=== PATIENT | female | born 1955 | race Caucasian/White ===

== ENCOUNTER 2018-01-24 00:10 | Outpatient (CLI) | payer MEDICARE, SELFPAY ==
--- NOTE | 2018-01-24 08:45 | MERGEMPI_ITS ---
*[facility]* *[facility]* [address] [place] [address] Myocardial Perfusion Imaging - SPECT Maco protocol Date of study: 01/24/2018 *PATIENT PRESENTATION* Height: 160cm (63in) Blood Pressure: Weight: 80.9kg (178lb) BSA: 1.93m^2 Referring physician: Jose R Healy Ordering physician: Keshia Rossi Impressions: Study suggests myocardial infarction, with minimal overall ischemiain the territory of the right coronary and left anterior descending arteries. Summary: 1. Myocardial perfusion imaging: There is a large sized, severely intense, fixed defect involving the mid anterior and apical anterior, apical inferior and mid inferior, basal inferolateral and mid inferolateral, and apical wall(s). This suggests large myocardial infarction in the distribution of right coronary and left anterior descending artery. Overall ischemia: minimal. 2. The calculated left ventricular ejection fraction after stress: 38%. LV global systolic function is moderately reduced. Diffuse left ventricular regional motion abnormalities. There is akinesis involving the apical wall(s) of the left ventricle. 3. Stress ECG conclusions: The stress ECG is negative. 4. Stress: The target heart rate was achieved. The heart rate response to stress is normal. There is a normal resting blood pressure with an appropriate response to stress. The patient experienced no chest pain during stress. Exercise capacity is reduced (7.4 METS). Recommendations: 1. Cardiology consult to discuss cardiac catheterization. 2. Medical management is recommended. Indication: RO7.9. History: REASON FOR VISIT: PT WAS ADMITTED TO THE HOSPITAL ON 01/03/18 FOR CHEST PAIN. RULED OUT FOR ACUTE CORONARY SYNDROME AND WAS DISCHARGED ON 01/04/18. PT HAS A HISTORY OF CARDIAC STENTING IN 1998. PT HAS A HISTORY OF ST ELEVATION NM IN 2015 WITH CORONARY ANGIOGRAPHY SHOWING MUTIVESSEL DISEASE. SHE HAD A TWO-VESSEL BYPASS IN NOVEMBER OF 2015, MTZ TO LAD AND SAPHENOUS VEIN GRAFT TO THE RCA. TODAY'S STRESS TEST ORDERED TO FURTHER EVALUATE FOR PROGRESSION OF HER CORONARY ARTERY DISEASE. Risk factors: Family history of coronary artery disease. Current tobacco use. Hypertension. Diabetes mellitus. Obesity. Dyslipidemia. ALLERGIES: IBUPROFEN. MEDICATIONS: VITAMIN B COMPLEX 1 CAP DAILY. ROSUVASTATIN 40 MG Q HS. NITROGLYCERIN 0.4 MG SL PRN. MVI 1 TAB DAILY. MAGNESIUM 1 TAB DAILY. LISINOPRIL 10 MG DAILY. LAMOTRIGINE 125 MG TWICE A DAY. ISOSORBIDE 30 MG DAILY. INSULIN/GLARGINE 48 UNITS SQ DAILY. ESMEPRAZOLE MAGNESIUM 1 CAP BID. EMPAGLIFLOZIN 10 MG DAILY. CITALOPRAM 20 MG DAILY. ASPIRIN 81 MG DAILY. METOPROLOL 50 MG DAILY. ACETAMINOPHEN WITH CODEINE Q 6 HOURS PRN. FLEXERIL 10 MG PRN. ALPRAZOLAM 0.5 MG PRN. Imaging Technique: Protocol: Maco protocol. Acquisition: Gated SPECT; 1 day - rest/stress. The patient was imaged in the supine position. Attenuation correction used. Isotope administration: - Rest. Tc[99m]-sestamibi. Dose: 10.3mCi. Injection time: 08:50 AM. Injection to stress time: 00:45. - Stress. Tc[99m]-sestamibi. Dose: 30.8mCi. Injection time: 11:45 AM. 1-2 min before end of exercise Baseline ECG: SINUS RHYTHM. INCOMPLETE BBB PATTERN. HR 65 BPM. Normal sinus rhythm withincomplete left bundle branch block. There was an oldinferior myocardial infarction. Stress protocol: + +---+ + + !Stage !HR !BP (mmHg) !Comments ! + +---+ + + !1 min !---! !Inject ! ! ! ! !Regadenoson. ! + +---+ + + !Baseline supine !65 !158/72 (101) ! ! + +---+ + + !Baseline standing !82 !144/66 (92) ! ! + +---+ + + !Stage I; 1.7mph, 10degrees; 3 !128!172/38 (83) ! ! !min ! ! ! ! + +---+ + + !Stage II; 2.5mph, 12degrees; 3 !150!168/64 (99) ! ! !min ! ! ! ! + +---+ + + !Peak stress !156! ! ! + +---+ + + !Recovery; 1 min !---!176 (systolic)! ! + +---+ + + !Recovery; 3 min !92 !138/60 (86) ! ! + +---+ + + !Recovery; 6 min !88 !138/60 (86) ! ! + +---+ + + * Stress results: Maximal heart rate during stress was 156bpm (98% of maximal predicted heart rate). The maximal predicted heart rate was 160bpm. The target heart rate was achieved. The heart rate response to stress is normal. There is a normal resting blood pressure with an appropriate response to stress. The rate-pressure product for the peak heart rate and blood pressure was 87454la Hg/min. The patient experienced no chest pain during stress. Exercise capacity is reduced (7.4 METS). Stress ECG: TREADMILL PORTION OF STRESS TEST ENDED IN 6 MINUTES & 13 SECONDS NORMAL HEART RATE RESPONSE TO EXERCISE. MAX HR = 156 % OF TARGET = 97 4 mmHg DROP IN BLOOD PRESSURE IN STAGE 2 OF EXERCISE. OCCASIONAL PVCs. APPROXIMATE METS ACHIEVED = 7.38 3 OUT OF 10 NON RADIATING CHEST PRESSURE ASSOCIATED WITH NAUSEA REPORTED AT 2 MINUTES RECOVERY PERIOD. CHEST PRESSURE SUBSIDED AFTER [address] SEGMENT CHANGES AVERAGE FUNCTIONAL CAPACITY FOR EXERCISE. The stress ECG is negative. Woody treadmill score: 6. This score predicts a low risk of cardiac events. Myocardial perfusion: Imaging information: gated. The image quality was fair. The left ventricle is moderately dilated. There is a large sized, severely intense, fixed defect involving the mid anterior and apical anterior, apical inferior and mid inferior, basal inferolateral and mid inferolateral, and apical wall(s). This suggests large myocardial infarction in the distribution of right coronary and left anterior descending artery. Overall ischemia: minimal. Ventricular Function (Wall Motion): The calculated left ventricular ejection fraction after stress: 38%. LV global systolic function is moderately reduced. Diffuse left ventricular regional motion abnormalities. There is akinesis involving the apical wall(s) of the left ventricle. Study data: Jose R Healy MD supervised and was readily available during the procedure. This study was interpreted by [facility]. Study status: Routine. Consent: The risks, benefits, and alternatives to the procedure were explained to the patient and informed consent was obtained. Procedure: Initial setup. A baseline ECG was recorded. Surface ECG leads and manual cuff blood pressure measurements were monitored. Heart sounds: Normal. Lung sounds: Normal. Treadmill exercise testing was performed using the Maco protocol. Study completion: All catheters inserted during the procedure were removed. The patient tolerated the procedure well and was discharged from the lab. Discharge: The patient left the laboratory in stable condition. Birthdate: Patient birthdate: 1955. Sex: Gender: female. Study date: Study date: 01/24/2018. Study time: 12:30 PM. Signature Documentation: - The imaging portion of this study was interpreted by Nuclear Product Development Director Jose R Healy MD. - The Stress ECG portion of this study was interpreted by Jose R Healy MD. Electronically signed by Jose R Healy 01/24/2018 16:11
== END 2018-01-24 00:30 ==
PROVIDERS: PCP Internal Medicine; Visit Provider Nurse Practitioner
DX: R07.9 Chest pain, unspecified (principal); R94.30 Abnormal result of cardiovascular function study, unspecified; I25.2 Old myocardial infarction; I25.10 Atherosclerotic heart disease of native coronary artery without angina pectoris; E78.5 Hyperlipidemia, unspecified; E66.9 Obesity, unspecified; I10 Essential (primary) hypertension; Z79.4 Long term (current) use of insulin; Z82.49 Family history of ischemic heart disease and other diseases of the circulatory system; Z95.1 Presence of aortocoronary bypass graft
CPT/HCPCS: 78452; 93016; 93018; 93017

== ENCOUNTER → 2018-02-10 12:53 | Outpatient (BNVA) | payer MEDICARE, SELFPAY | PROVIDERS: Visit Provider Internal Medicine Cardiovascular Disease | DX: I25.810 Atherosclerosis of coronary artery bypass graft(s) without angina pectoris (principal); I25.5 Ischemic cardiomyopathy; I08.0 Rheumatic disorders of both mitral and aortic valves; I27.20 Pulmonary hypertension, unspecified; Z95.1 Presence of aortocoronary bypass graft; E78.5 Hyperlipidemia, unspecified; E11.8 Type 2 diabetes mellitus with unspecified complications; I10 Essential (primary) hypertension | CPT/HCPCS: 99214 ==

== ENCOUNTER 2018-05-26 00:14 | Outpatient (CLI) | payer MEDICARE, SELFPAY ==
--- NOTE | 2018-05-26 09:12 | DI.MAMMO_ITS ---
SYMPTOMS/DIAGNOSIS: SCREENING, Z12.31 BILATERAL SCREENING MAMMOGRAM: Comparison is made with exams from 2009 through 2016. The breasts are composed of scattered fibroglandular densities, breast density category B. No suspicious masses or suspicious microcalcifications are seen. There has been no significant change. IMPRESSION: Category 1B, negative mammogram. Yearly screening mammography is recommended. SA ASSESSMENT OF FINDINGS: Negative. Category 1. Patient will receive a letter notifying them of these results. BI-RADS category B. There are scattered areas of fibroglandular density.
== END 2018-05-26 00:34 ==
PROVIDERS: PCP Internal Medicine; Visit Provider Internal Medicine
DX: Z12.31 Encounter for screening mammogram for malignant neoplasm of breast (principal)
CPT/HCPCS: 77063; 77067

== ENCOUNTER 2018-06-16 10:23 | Outpatient (CLI) | payer MEDICARE, SELFPAY ==
--- NOTE | 2018-06-16 10:19 | DI.RAD_ITS ---
SYMPTOM/DIAGNOSIS: PAIN LEFT SHOULDER: There is mild spurring at the AC joint. More prominent spurring is seen at the inferior glenoid. There are calcifications adjacent to the greater tuberosity consistent with calcific tendinosis. The humeral head appears normally positioned. IMPRESSION: Degenerative changes and calcific tendinosis.
== END 2018-06-16 10:43 ==
PROVIDERS: PCP Internal Medicine; Referring Provider Internal Medicine; Visit Provider Orthopaedic Surgery
DX: G89.29 Other chronic pain (principal); M25.512 Pain in left shoulder; M19.012 Primary osteoarthritis, left shoulder; M75.32 Calcific tendinitis of left shoulder; E11.9 Type 2 diabetes mellitus without complications; I10 Essential (primary) hypertension; Z79.4 Long term (current) use of insulin
CPT/HCPCS: 20610; 99214; 99242; 73030; J1040

== ENCOUNTER → 2018-07-28 09:03 | Outpatient (BNVA) | payer MEDICARE, SELFPAY | PROVIDERS: PCP Internal Medicine; Referring Provider Internal Medicine; Visit Provider Orthopaedic Surgery | DX: M75.82 Other shoulder lesions, left shoulder; E11.9 Type 2 diabetes mellitus without complications; I10 Essential (primary) hypertension; Z79.4 Long term (current) use of insulin | CPT/HCPCS: 99211; 99213 ==

== ENCOUNTER 2018-08-17 17:29 | Outpatient (REF) | payer MEDICARE, SELFPAY ==
[2018-08-17 21:51] LABS: Bilirubin Negative (Negative); Blood Negative (Negative); Clarity Sl Cloudy; Glucose >=1000 mg/dL (Negative); Ketones Negative (Negative); Leukocyte Esterase Trace (Negative); Nitrite Negative (Negative); Specific Gravity <= 1.005 (1.005-1.025); Urobilinogen 0.2 EU/dL (Up TO 0.2); pH 5.5 (5-8)
[2018-08-17 22:06] LABS: Bacteria Many HPF (Negative); Casts Negative LPF (Negative); Crystals Negative HPF (Negative); Epithelial Cells Rare HPF (Negative); Mucus Negative (Negative); Other Cells Rare Renal (Negative); RBC Negative (0-2); WBC 20-50 HPF (0-5)
[2018-08-17 22:07] LABS: C & S Indicated? C&S Done As Ordered
== END 2018-08-17 17:49 ==
LOC: NCHCN 17:29
PROVIDERS: PCP Internal Medicine; Visit Provider Nurse Practitioner Family
DX: R10.2 Pelvic and perineal pain (principal); N89.8 Other specified noninflammatory disorders of vagina
CPT/HCPCS: 87077; 81003; 81015; 87086; 87186; 87480; 87510; 87660

== ENCOUNTER → 2018-08-18 13:19 | Outpatient (BNVA) | payer MEDICARE, SELFPAY | PROVIDERS: PCP Internal Medicine; Visit Provider Internal Medicine Cardiovascular Disease | DX: I25.10 Atherosclerotic heart disease of native coronary artery without angina pectoris (principal); I25.5 Ischemic cardiomyopathy; I34.0 Nonrheumatic mitral (valve) insufficiency; I35.1 Nonrheumatic aortic (valve) insufficiency; I27.20 Pulmonary hypertension, unspecified; I10 Essential (primary) hypertension; E11.9 Type 2 diabetes mellitus without complications | CPT/HCPCS: 99214 ==

== ENCOUNTER 2018-09-01 16:31 | Outpatient (REF) | payer MEDICARE, SELFPAY | END 2018-09-01 16:51 | LOC: NCHCN 16:31 | PROVIDERS: PCP Internal Medicine; Visit Provider Internal Medicine | DX: N76.2 Acute vulvitis (principal) | CPT/HCPCS: 87480; 87510; 87660 ==

== ENCOUNTER 2018-09-22 01:44 | Outpatient (CLI) | payer MEDICARE, SELFPAY ==
--- NOTE | 2018-09-22 14:00 | DIABASSESS_ITS ---
DESCRIPTION/ASSESSMENT: Yas Campos presents for Medical Nutrition Therapy for diabetes. She reports h/o heart disease. FOOD: Yas has difficulty chewing because of dental issues and mostly eats soft foods. She does not have a plan for helping with this. In addition, she has acid reflux and is forced to eat very slowly. BMI 32 She has her homemade date/flaxmeal bread, 1/2 banana for breakfast or yogurt and flax. 1:00 before work: 3 oz roast beef, 5 crackers and or 4 chunks of cheese. Supper at work she has a few bites of meat or whatever is being served. Before bed she has patrick crackers with fudge frosting to prevent hypoglycemia in the night. States she craves sweets. She does use a [employer] cane weigher helper at times to mix up a whole meal. MEDICATION: 48u Lantus and Jardiance which has been discontinued due to UTI, however she reports continuing to take it for the cardioprotective aspect. She was intolerant of Victoza. MONITOR: A1c 7.9 3 months ago. Monitors blood sugars fasting 54-174, most less than 130mg/dl. PHYSICAL ACTIVITY: Yas does not have a regular activity regimen. She works 4 days a week with some days being very active. INTERVENTION: Reviewed diabetes food guide focused on carbohydrate sources and distribution. Encouraged vegetable choices and ways to make them palatable. Discussed challenges of feeding her insulin to prevent hypoglycemia. Discussed physiological need for insulin for carbohydrate as well as basal needs. She understands currently her basal insulin is also covering her mealtime needs which may be increasing her risk of nocturnal hypoglycemia. Reviewed mealtime insulin option. Encouraged monitoring of blood sugars to see how food choices are affecting blood sugars. Encouraged physical activity and discussed options. PLAN: Yas will document food and blood sugars over the weekend increase protein at breakfast; decrease crackers; move banana to snack to spread out carbohydrate servings We will follow up Wednesday for visit. In 1400 Out 1450 3 MNT
== END 2018-09-22 02:04 ==
PROVIDERS: PCP Internal Medicine; Visit Provider Dietitian, Registered
DX: E11.9 Type 2 diabetes mellitus without complications (principal); Z79.4 Long term (current) use of insulin; Z71.3 Dietary counseling and surveillance
CPT/HCPCS: 97802

== ENCOUNTER 2018-09-28 10:44 | Outpatient (REF) | payer MEDICARE, SELFPAY | END 2018-09-28 11:04 | LOC: NCHCN 10:44 | PROVIDERS: PCP Internal Medicine; Visit Provider Specialist/Technologist Athletic Trainer | DX: N76.2 Acute vulvitis (principal) | CPT/HCPCS: 87480; 87510; 87660 ==

== ENCOUNTER 2018-09-29 12:07 | Outpatient (CLI) | payer MEDICARE, SELFPAY ==
--- NOTE | 2018-09-29 14:30 | DIABASSESS_ITS ---
ASSESSMENT: Yas Campos returns for follow up for Medical Nutrition Therapy with monitoring of blood sugars 122 fasting; 123 before lunch, 175 at 3PM when she had quiche; 147 at 5:30 pm. Another day blood sugar 86, 106, 155 and 125. MEDICATION: She is intolerant to trulicity with stomach problems. She has just stopped Jardiance secondary to UTI. She is physically active with mowing the lawn and general outdoor activities. She states she is also down to 4 cigarettes trying to quit. ASSESSMENT/INTERVENTION: Yas documented her food and finds blood sugars improved. She feels she can continue with this food outline. Discussed options to take to work. Discussed Ozempic. She will talk with the pharmacist about whether this would be better tolerated given it is a once a week medication. I did explain it is a very similar medication to Trulicity, however she continues to be interested. ACTION: Continue current food plan with added variety Discuss with PCP medication options given she is unable to take Jardiance We will follow up in 1 month and by telephone between.
== END 2018-09-29 12:27 ==
PROVIDERS: PCP Internal Medicine; Visit Provider Dietitian, Registered
DX: E11.9 Type 2 diabetes mellitus without complications (principal); Z79.4 Long term (current) use of insulin; Z71.3 Dietary counseling and surveillance

== ENCOUNTER 2018-11-05 08:07 | Emergency (ER) | payer MEDICARE, SELFPAY ==
[2018-11-05] VITALS (38 sets, daily range): BP systolic 95–151; BP diastolic 56–75; PULSE 0–135; RESP 9–53; TEMP 36.2; O2SAT 88–98
--- NOTE | 2018-11-05 08:18 | DI.RAD_ITS ---
SYMPTOM/DIAGNOSIS: SHORTNESS OF BREATH PORTABLE CHEST4: Comparison is made with 03 Jan 2018. Sternal wires, mediastinal clips and coronary artery stents are seen. The heart is enlarged, unchanged. There are mildly increased interstitial markings and mild vascular prominence which could indicate mild CHF. There is no focal infiltrate or effusion. IMPRESSION: Cardiomegaly and mild CHF.
[2018-11-05] MEDS: Aspirin 81 MG CHEW 324 MG CH (08:21)
--- NOTE | 2018-11-05 08:22 | ED.GENADUL_ITS ---
Discharge Plan Disposition Patient Disposition: HOME Condition: Stable Discharge Details Chief Complaint: Chest Pain Clinical Impression: Shortness of breath, CHF (congestive heart failure) Primary Care Provider: Con Gardner ED Provider: Theo Mock [place] Meds and New Rx's Prescriptions: New furosemide [Lasix] 20 mg tablet 20 mg PO DAILY Qty: 14 RF: 0 Continued aspirin [Adult Low Dose Aspirin] 81 MG tablet,delayed release (DR/EC) 81 mg PO DAILY Qty: 30 RF: 6 lisinopril 10 MG tablet 10 mg PO DAILY Qty: 90 RF: 4 Metoprolol Succinate 50 MG TAB.ER.24H 50 mg PO DAILY 60 Days Qty: 60 RF: 4 Lantus U-100 Insulin 100 UNITS/ML solution 48 units Sub-Q DAILY RF: 0 lamotrigine [Lamictal] 25 MG tablet 1 tab PO BID RF: 0 lamotrigine [Lamictal] 100 MG tablet 1 tab PO BID RF: 0 acetaminophen-codeine [Tylenol-Codeine #3] 1 EACH tablet 1 tab PO Q6H PRN (Reason: Pain) RF: 0 nitroglycerin [Nitrostat] 0.4 MG tablet, sublingual 0.4 mg Sublingual Q5 MIN PRN X3 PRN (Reason: Chest Pain) Qty: 15 RF: 0 esomeprazole magnesium [Nexium] 20 MG capsule,delayed release(DR/EC) 1 cap PO BID RF: 0 Jardiance 10 MG tablet 10 mg PO DAILY RF: 0 rosuvastatin [Crestor] 40 MG tablet 40 mg PO QPM RF: 0 multivitamin [Daily Multi-Vitamin] 1 EACH tablet RF: 0 vitamin B complex [B-Complex] 1 EACH tablet See Rx Instructions .ROUTE .COMPLEX RF: 0 magnesium L-lactate [Magtab] 84 MG tablet extended release RF: 0 isosorbide mononitrate 30 MG tablet extended release 24 hr 30 mg PO DAILY Qty: 30 RF: 0 citalopram 20 mg tablet 25 mg PO DAILY RF: 0 cyclobenzaprine 10 mg Tablet 10 mg PO HS PRNRF: 0 nicotine [Nicoderm CQ] 14 mg/24 hr Patch 24 Hour 1 patch TRANSDERMAL Q24H RF: 0 Lantus U-100 Insulin 100 unit/mL Solution 52 unit subcut DAILY RF: 0 alprazolam 0.5 mg Tablet 0.5 mg PO BID PRNRF: 0 citalopram 20 mg Tablet 20 mg PO DAILY RF: 0 esomeprazole magnesium [Nexium] 20 mg Capsule,Delayed Release(Dr/Ec) 40 mg PO DAILY RF: 0 magnesium 200 mg Tablet 800 mg PO DAILY RF: 0 Narcan 4 mg/actuation [place],Non-Aerosol 1 spray INTRANASAL ONCE PRN (Reason: Sedation) RF: 0 Ozempic 0.25 mg or 0.5 mg(2 mg/1.5 mL) Pen Injector 0.25 mg subcut QWEEK RF: 0 Discharge Instructions Instructions: Pulmonary Edema (ED) Additional Instructions: You have evidence of mild pulmonary edema on your xray. you are being started on lasix, take your first dose tomorrow and discuss continuing this medication when you follow up with your primary care provider this week if you feel more ill, more short of breath or have chest pain/pressure that is worsening or new return to the emergency department Medical Decision Making 63 yo female with hx of coronary artery disease with prior coronary artery bypass grafting in 2016, prior PCI in 1999, ischemic cardiomyopathy, type 2 diabetes mellitus, hypertension, hld and mitral regurgitation who comes in with chief complaint of shortness of breath for a week that is worse when laying flat. She also states she has had some mild chest pressure that doesn't radiate, no n/v, no diaphoresis. She denies cough or fevers, no recent immobilization. She was able to walk to the room with no evidence of significant respiratory distress and on exam has crackles at the bases and on bedside u/s does have b lines in both lungs, no pericardial effusion and EF doesn't appear significantly reduced. No wheezing so doubt copd/asthma. No fever/cough so doubt pna and no significant tachycardia/hypoxia or evidence of dvt so doubt PE. I suspect her symptoms are due to pulmonary edema from her known heart disease. Will evaluate for cardiac ischemia and anemia as well as electrolyte disorders and monitor Pt remains stable, labs show probnp of 1000, up from 765 in 2016 otherwise unremarkable labs. She is ambulating with stable vital signs. I had a long discussion with the patient about admission vs repeating troponin and d/c if normal and the risks/benefits of both and she has chosen that she would like to repeat the troponin and if normal d/c rather than admission which I feel is reasonable given reassuring labs and vital signs. She has capacity to make her own decisions and so will repeat troponin and continue to monitor at this time 2nd troponin negative as well. She feels much better and remains hd stable. Will d/c and have her f/u with her pcp this week and return precautions given Differential Diagnosis chf, pna, acs Medical Records Medical records reviewed: Yes I reviewed the patient's medical records. Imaging Data Radiologic Study: Attestation: I personally reviewed and interpreted this imaging study as follows: Imaging: X-Ray Radiologist's impression: IMPRESSION: Findings suspicious for mild CHF. Lab Data Lab results reviewed: Yes I reviewed the patient's lab results. ECG Data Attestation: I personally reviewed and interpreted this ECG (s) as follows: Prior ECG tracings: available for review Interpretation: sinus rhythm, rate of 80, pr [address] t wave ischemic changes compared to old ekg 2nd ekg shows sinus rythm, rate of 70, no st t wave changes from first ekg HPI General Mode of arrival: ambulatory . Date/Time Provider Initiated Documentation: 11/05/18 08:08 . Limitations to Documentation: no limitations . Information obtained by: patient . History of Present Illness 63 year old F presents to the emergency department with the chief complaint of shortness of breath, described as moderate, Patient reports no radiation. Patient start ed experiencing this week(s) (1) and it has been constant. No relieving factors improve symptom(s), Other factors that worsen symptoms (laying flat) . Patient notes weakness. Patient did receive the following treatments prior to arrival, none Related Data Home Medications Medication Instructions Recorded Confirmed Lantus U-100 Insulin 48 units SUB-Q DAILY 04/08/14 11/05/18 lamotrigine [Lamictal] 1 tab PO BID 04/08/14 11/05/18 lamotrigine [Lamictal] 1 tab PO BID 04/08/14 11/05/18 acetaminophen-codeine 1 tab PO Q6H PRN 12/09/14 11/05/18 [Tylenol-Codeine #3] nitroglycerin [Nitrostat] 0.4 mg SUBLINGUAL Q5 MIN PRN X3 07/01/15 11/05/18 PRN #15 tab esomeprazole magnesium [Nexium] 1 cap PO BID 12/06/15 07/28/18 aspirin [Adult Low Dose Aspirin] 81 mg PO DAILY #30 tab-cap 05/29/16 11/05/18 lisinopril 10 mg PO DAILY #90 tab-cap 07/24/16 11/05/18 Jardiance 10 mg PO DAILY 01/03/18 07/28/18 rosuvastatin [Crestor] 40 mg PO QPM 01/03/18 11/05/18 isosorbide mononitrate 30 mg PO DAILY #30 tabcr 01/04/18 11/05/18 magnesium L-lactate [Magtab] 01/04/18 07/28/18 multivitamin [Daily Multi-Vitamin] 01/04/18 07/28/18 vitamin B complex [B-Complex] See Rx Instructions .ROUTE .COMPLEX 01/04/18 11/05/18 citalopram 20 mg tablet 25 mg PO DAILY tab 08/18/18 11/05/18 Lantus U-100 Insulin 52 unit SUBCUT DAILY 11/05/18 11/05/18 Narcan 1 spray INTRANASAL ONCE PRN 11/05/18 11/05/18 Ozempic 0.25 mg SUBCUT QWEEK 11/05/18 11/05/18 alprazolam 0.5 mg PO BID PRN 11/05/18 11/05/18 citalopram 20 mg PO DAILY 11/05/18 11/05/18 cyclobenzaprine 10 mg PO HS PRN 11/05/18 11/05/18 esomeprazole magnesium [Nexium] 40 mg PO DAILY 11/05/18 11/05/18 furosemide [Lasix] 20 mg PO DAILY #14 tab 11/05/18 magnesium 800 mg PO DAILY 11/05/18 11/05/18 nicotine [Nicoderm CQ] 1 patch TRANSDERMAL Q24H 11/05/18 11/05/18 Previous Rx's Medication Instructions Recorded nitroglycerin [Nitrostat] 0.4 mg SUBLINGUAL Q5 MIN PRN X3 07/01/15 PRN #15 tab isosorbide mononitrate 30 mg PO DAILY #30 tabcr 01/04/18 furosemide [Lasix] 20 mg PO DAILY #14 tab 11/05/18 Allergies Allergy/AdvReac Type Severity Reaction Status Date / Time ibuprofen AdvReac Intermediate upset Unverified 11/05/18 08:22 stomach Review of Systems Review of Systems All systems reviewed & are unremarkable except as noted in HPI and below Constitutional Denies chills, Denies fever(s) and Denies weakness Respiratory Denies cough Gastrointestinal Denies abdominal pain and Denies vomiting Integumentary/Breasts Denies rash Neurologic Denies weakness Psychiatric Denies depression PFSH Medical History Diabetes Fibromyalgia GERD (gastroesophageal reflux disease) Hypertension Sleep apnea Social History Smoking/Tobacco Use Status: Current every day Drug use: Never Substance use type: does not use Do you feel safe at home: Yes Do you feel safe in your relationship?: Yes History History 2 Para 4 Hx # Term Pregnancies Multiple births Hx # Pregnancies Ectopic pregnancies AB induced Hx Number of Living Children AB spontaneous Exam Const General: no acute distress Orientation: alert HENMT Head: normal to inspection Ears: external ears normal General nose exam: external nose normal Mouth: moist mucous membranes Eyes General: appearance normal, both eyes and all related structures Neck Neck: normal visual inspection Resp Effort & Inspection: normal respiratory effort and able to speak in complete sentences Cardio Rate: regular rate Skin General skin exam: no rashes or lesions noted Neuro General: alert and oriented x3 Extrem General: normal to inspection Psych Mental Status: mental status grossly normal
[2018-11-05] MEDS: Furosemide 40 MG/4 ML VIAL IVP (08:26)
[2018-11-05 08:30] LABS: Abs Immature Grans 0.03 k/cumm (0.0-0.09); Absolute Basophil Count 0.03 k/cumm (0.0-0.2); Absolute Eosinophil Count 0.18 k/cumm (0.0-0.7); Absolute Lymphocyte Count 1.89 k/cumm (1.2-3.4); Absolute Monocyte Count 1.04 k/cumm (0.11-0.7); Absolute Neutrophil Count 5.98 k/cumm (1.2-6.7); Basophils % 0.3; HCT 37.5 % (36.0-46.0); HGB 12.3 g/dL (12.0-15.5); Immature Grans % 0.3; Lymphocytes % 20.7; Mean Corp. HGB Concentration 32.8 g/dL (32.0-36.0); Mean Corpuscular Hemoglobin 31.1 pg (27.0-33.0); Mean Corpuscular Volume 94.7 fL (80-95); Mean Platelet Volume 9.8 fL (8.0-11.0); Monocytes % 11.4; Neutrophils % 65.3; Platelet Count 234 x1000/uL (130-400); RBC 3.96 m/cumm (4.00-5.20); RBC Distribution Width 13.3 % (11.7-14.6); White Blood Cell Count 9.15 k/cumm (4.4-10.8)
[2018-11-05 08:45] LABS: PTT Activated 24.5 sec (21.0-31.4); Prothrombin Time 11.5 sec (9.3-11.0)
[2018-11-05 08:47] LABS: INR 1.1 (0.9-1.1)
[2018-11-05 08:53] LABS: ALT 24 U/L (12-78); AST 16 U/L (15-37); Albumin 3.5 g/dL (3.4-5.0); Alkaline Phosphatase 84 U/L (46-116); BUN 16 mg/dL (7-18); Bilirubin, Total 0.7 mg/dL (0.2-1.0); CREATININE 0.74 mg/dL (0.55-1.02); Calcium 9.3 mg/dL (8.5-10.1); Chloride 104 mmol/L (98-107); Glucose 285 mg/dL (70-100); Magnesium 1.9 mg/dL (1.8-2.4); NT-proBNP 1057 pg/mL; Potassium 5.1 mmol/L (3.5-5.1); Sodium 141 mmol/L (136-145); Total Protein 7.5 g/dL (6.4-8.2)
[2018-11-05 08:54] LABS: Troponin I < 0.05 ng/mL (0.00-0.06)
--- NOTE | 2018-11-05 10:02 | DI.VRAD_ITS ---
EXAM: XR Chest, 1 View EXAM DATE/TIME: 11/05/2018 8:19 AM CLINICAL HISTORY: 63 years old, female; Shortness of breath; Prior surgery; Surgery date: 1-6 months TECHNIQUE: Imaging protocol: XR of the chest, 1 view. COMPARISON: CR PORTABLE CHEST ONE VIEW 01/03/2018 2:19 PM FINDINGS: Lungs: Minimal septal line thickening in the right midlung zone. Mild prominence of pulmonary vasculature. No pulmonary consolidation. Pleural space: No pleural effusion or pneumothorax. Heart/Mediastinum: Status post CABG. Cardiomegaly, unchanged. Bones/joints: Unremarkable. IMPRESSION: Findings suspicious for mild CHF. Dictated and Authenticated by: Antoine Yuen MD. Ordering:BRITTNY Venegas MD
[2018-11-05 11:28] LABS: Troponin I < 0.05 ng/mL (0.00-0.06)
--- NOTE | 2018-11-05 11:40 | NUR.NOTE ---
Nursing Note: Pt resting in stretcher, states that her SOB has greatly improved, pt states, I can take a deep breath again
--- NOTE | 2018-11-07 08:01 | NUR.NOTE ---
referral sent to pcp Dr. Gardner.Nursing Note:
== END 2018-11-05 12:09 | disposition home or self-care (01) ==
PROVIDERS: Emergency Provider Emergency Medicine; PCP Internal Medicine
DX: R06.02 Shortness of breath (principal); R07.9 Chest pain, unspecified; I50.9 Heart failure, unspecified; I25.10 Atherosclerotic heart disease of native coronary artery without angina pectoris; Z95.1 Presence of aortocoronary bypass graft
CPT/HCPCS: 36415; 80053; 93005; 96374; 99285; 71045; 83735; 83880; 84484; 85025; 85610; 85730; 93010; J1940; J3490

== ENCOUNTER 2018-11-21 09:33 | Emergency (ER) | payer MEDICARE, SELFPAY ==
[2018-11-21] VITALS (43 sets, daily range): BP systolic 102–144; BP diastolic 46–96; PULSE 58–82; RESP 8–21; TEMP 37; O2SAT 92–99
--- NOTE | 2018-11-21 09:39 | W.ED.GENAD ---
Discharge Plan Disposition Patient Disposition: HOME Condition: Improving Discharge Details Chief Complaint: Chest Pain Clinical Impression: Dyspnea, Chest pain, History of CHF (congestive heart failure), Noncompliance with medication regimen Primary Care Provider: Con Gardner ED Provider: Brigid Newberry Home Meds and New Rx's Prescriptions: New furosemide [Lasix] 40 mg tablet 40 mg PO DAILY Qty: 30 RF: 0 Continued aspirin [Adult Low Dose Aspirin] 81 MG tablet,delayed release (DR/EC) 81 mg PO DAILY Qty: 30 RF: 6 lisinopril 10 MG tablet 10 mg PO DAILY Qty: 90 RF: 4 Lantus U-100 Insulin 100 UNITS/ML solution 48 units Sub-Q DAILY RF: 0 lamotrigine [Lamictal] 100 MG tablet 1 tab PO BID RF: 0 acetaminophen-codeine [Tylenol-Codeine #3] 1 EACH tablet 1 tab PO Q6H PRN (Reason: Pain) RF: 0 nitroglycerin [Nitrostat] 0.4 MG tablet, sublingual 0.4 mg Sublingual Q5 MIN PRN X3 PRN (Reason: Chest Pain) Qty: 15 RF: 0 rosuvastatin [Crestor] 40 MG tablet 40 mg PO QPM RF: 0 multivitamin [Daily Multi-Vitamin] 1 EACH tablet 1 tab DAILY RF: 0 vitamin B complex [B-Complex] 1 EACH tablet See Rx Instructions .ROUTE .COMPLEX RF: 0 isosorbide mononitrate 30 MG tablet extended release 24 hr 30 mg PO DAILY Qty: 30 RF: 0 cyclobenzaprine 10 mg Tablet 10 mg PO HS PRNRF: 0 Lantus U-100 Insulin 100 unit/mL Solution 52 unit subcut DAILY RF: 0 alprazolam 0.5 mg Tablet 0.5 mg PO PRN PRNRF: 0 citalopram 20 mg Tablet 20 mg PO DAILY RF: 0 esomeprazole magnesium [Nexium] 20 mg Capsule,Delayed Release(Dr/Ec) 40 mg PO DAILY RF: 0 magnesium 200 mg Tablet 800 mg PO DAILY RF: 0 Narcan 4 mg/actuation Topping,Non-Aerosol 1 spray INTRANASAL ONCE PRN (Reason: Sedation) RF: 0 furosemide [Lasix] 20 mg tablet 20 mg PO DAILY Qty: 14 RF: 0 metoprolol succinate 50 mg Tablet Extended Release 24 Hr 50 mg DAILY RF: 0 nystatin 100,000 unit/gram Cream 100,000 unit BID RF: 0 Narcan 4 mg/actuation Topping,Non-Aerosol 4 mg PRN PRNRF: 0 Discharge Instructions Instructions: Chest Pain (ED), Dyspnea (ED) Additional Instructions: Call your primary care doctor's office today to discuss plans for obtaining an outpatient PET scan and/or biopsy of the lung mass noted on CAT scan today. Follow-up with her scheduled appointment with her primary care doctor on for reevaluation and for referral of outpatient stress test. Return immediately to the emergency department if you develop any worsening or new concerning symptoms. Discharge Data Discharge Date/Time-TO BE ENTERED AT DEPARTURE: 11/21/18 14:32 Discharge Physician: Brigid Newberry Medical Decision Making 63-year-old female with a history of diabetes, GERD, hypertension, hyperlipidemia, fibromyalgia, coronary artery disease, ischemic cardiomyopathy, CABG in 2016 and 2 cardiac stents who presents with shortness of breath for months, worse over the past 6 days since she ran out of her Lasix, and left-sided aching chest pain that started while in bed this morning. EKG noted a rate of 65, sinus with T wave inversion in 1 and aVL which is been seen in previous. No acute ST elevation or depression. She has significant tenderness to palpation in her left upper quadrant and left lower ribs. She states she was unaware that she had abdominal pain. She states she feels like she gained 3 pounds over the last few days. Differential diagnosis includes acute CHF, ACS, pneumonia, fluid overload, arrhythmia. Denies tearing chest pain so doubt dissection. History presentation not consistent with PE. Based on patient's age and history, cardiac work-up including screening labs, CT chest abdomen and pelvis, will give GI cocktail, Compazine, Pepcid and Lasix and reassess. 1145 --patient states she feels much better. Denies any chest pain or shortness of breath at this time. Labs and imaging reviewed. Troponin negative. BMP 809 which is improved from previous at 1000. Lipase within normal limits. CT chest noted increase in size of a peripheral nodule near the lingula which is masslike and recommend biopsy or PET scan for further evaluation per radiology. Do not suspect pneumonia as patient has no fever, cough, normal white blood cell count and normal vitals. No PE, aneurysm or acute abdominal pathology. Unable to assess fully for thoracic dissection but no abd dissection. 1410 --patient feels much better and she is requesting to go home. She has eaten lunch and she denies any chest pain or shortness of breath. She is hemodynamically stable with normal heart rate and oxygen saturation. Repeat troponin negative. Second EKG no acute change. We will send home with prescription for Lasix. She is instructed to f/u with pcp in 2 days and to return here immediately if worse. She was informed of mass on chest CT and advised for repeat CT chest in 4-6 weeks. Medical Records Medical records reviewed: Yes I reviewed the patient's medical records. Imaging Data Radiologic Study: Radiologist's impression: CT ANGIOGRAPHY CHEST/ABDOMEN/PELVIS: 11/21/18 CT angiography was performed with multi slice acquisition and multi planar and 3D reconstruction. CT angiography of the chest, abdomen and pelvis was performed with pulmonary embolus protocol timing of thoracic scanning. There is no evidence of pulmonary embolic disease. Thoracic aorta is not well opacified. There is some prominence of the pulmonary interstitial markings and there are diffuse mild changes of COPD. There is an irregular pleural based nodule/mass measuring up to about 18 x 8 mm in diameter in the left lung base laterally which lies in the lingula. No other focal nodule or consolidation seen. No pleural effusion or pneumothorax. Tracheobronchial tree appears intact. No mediastinal or hilar adenopathy.. Abdominal aorta is well opacified and appears normal as do its major branches. Liver, spleen and pancreas are normal in appearance. Adrenals and kidneys are unremarkable. No abdominal or pelvic adenopathy. Small fat containing umbilical hernia noted. No other significant abdominal wall hernia seen. Uterus is atrophic or absent. The appendix appears normal. No evidence of diverticulitis or bowel obstruction. CONCLUSION: 1. No evidence of pulmonary embolic disease. Thoracic aorta not well opacified with contrast material. 2. 18 x 8 mm in diameter peripheral pleural based nodule/mass of the lingula. This was not present on previous chest CT of 06/30/2015 and may represent an area of consolidation vs neoplasm. There was presumed lingular scarring seen on previous chest CT of December 2017. Follow up chest CT suggested in 4-6 weeks if there is a clinical suspicion of pneumonia and if the findings do not resolve evaluation with tissue sampling or PET CT should be considered to rule out neoplastic disease. 3. No significant abnormality identified on scanning of the abdomen. Lab Data Lab results reviewed: Yes I reviewed the patient's lab results. Laboratory Tests Range/Units 11/21/18 11/21/18 11/21/18 09:55 09:55 10:08 WBC (4.4-10.8) k/cumm 7.84 RBC (4.00-5.20) m/cumm 3.72 L Hgb (12.0-15.5) g/dL 11.3 L Hct (36.0-46.0) % 34.7 L MCV (80-95) fL 93.3 MCH (27.0-33.0) pg 30.4 MCHC (32.0-36.0) g/dL 32.6 RDW (11.7-14.6) % 13.0 Plt Count (130-400) x1000/uL 242 MPV (8.0-11.0) fL 9.7 Immature Gran % 0.3 Neutrophils % 62.0 Lymphocytes % 24.6 Monocytes % 10.5 Eosinophils % 2.3 Basophils % 0.3 Absolute Neutrophils (1.2-6.7) k/cumm 4.87 Absolute Lymphocytes (1.2-3.4) k/cumm 1.93 Absolute Monocytes (0.11-0.7) k/cumm 0.82 H Absolute Eosinophils (0.0-0.7) k/cumm 0.18 Absolute Basophils (0.0-0.2) k/cumm 0.02 Sodium (136-145) mmol/L 139 Potassium (3.5-5.1) mmol/L 4.6 Chloride (98-107) mmol/L 105 Carbon Dioxide (21.0-32.0) mmol/L 25.0 Anion Gap (3-11) mmol/L 9.0 BUN (7-18) mg/dL 11 Creatinine (0.55-1.02) mg/dL 0.69 Estimated GFR/1.73 m2 (mL/min/1.73m2) >= 60.00 Glucose (70-100) mg/dL 251 H Calcium (8.5-10.1) mg/dL 8.8 Magnesium (1.8-2.4) mg/dL 1.8 Total Bilirubin (0.2-1.0) mg/dL 0.5 AST (15-37) U/L 17 ALT (12-78) U/L 18 Alkaline Phosphatase (46-116) U/L 84 Troponin I (0.00-0.06) ng/mL < 0.05 NT-Pro-B Natriuret Pep ( - 299) pg/mL 809 H Total Protein (6.4-8.2) g/dL 7.2 Albumin (3.4-5.0) g/dL 3.4 Lipase (73-393) U/L 72 L Range/Units 11/21/18 12:59 WBC (4.4-10.8) k/cumm RBC (4.00-5.20) m/cumm Hgb (12.0-15.5) g/dL Hct (36.0-46.0) % MCV (80-95) fL MCH (27.0-33.0) pg MCHC (32.0-36.0) g/dL RDW (11.7-14.6) % Plt Count (130-400) x1000/uL MPV (8.0-11.0) fL Immature Gran % Neutrophils % Lymphocytes % Monocytes % Eosinophils % Basophils % Absolute Neutrophils (1.2-6.7) k/cumm Absolute Lymphocytes (1.2-3.4) k/cumm Absolute Monocytes (0.11-0.7) k/cumm Absolute Eosinophils (0.0-0.7) k/cumm Absolute Basophils (0.0-0.2) k/cumm Sodium (136-145) mmol/L Potassium (3.5-5.1) mmol/L Chloride (98-107) mmol/L Carbon Dioxide (21.0-32.0) mmol/L Anion Gap (3-11) mmol/L BUN (7-18) mg/dL Creatinine (0.55-1.02) mg/dL Estimated GFR/1.73 m2 (mL/min/1.73m2) Glucose (70-100) mg/dL Calcium (8.5-10.1) mg/dL Magnesium (1.8-2.4) mg/dL Total Bilirubin (0.2-1.0) mg/dL AST (15-37) U/L ALT (12-78) U/L Alkaline Phosphatase (46-116) U/L Troponin I (0.00-0.06) ng/mL < 0.05 NT-Pro-B Natriuret Pep ( - 299) pg/mL Total Protein (6.4-8.2) g/dL Albumin (3.4-5.0) g/dL Lipase (73-393) U/L ECG Data Attestation: I personally reviewed and interpreted this ECG (s) as follows: Interpretation: #1 -- Rate of 65, sinus, T wave inversion in [address] No acute ST elevation or depression. QTc 426. QRS 108. #2 -- Rate of 63, sinus, T wave inversion in [address]VL[address] No acute ST elevation or depression. QTc 440. QRS 112. HPI General Mode of arrival: ambulatory. Date/Time Provider Initiated Documentation: 11/21/18 09:35. Limitations to Documentation: no limitations. Information obtained by: patient. HPI Narrative: Patient is a 63-year-old female with bipolar disorder, hypertension, GERD, diabetes, hypertension, fibromyalgia, CABG and coronary artery stents who presents with shortness of breath for months, worse over the past few days since she ran out of Lasix, and chest pain since this morning. Patient states she was laying in bed when she developed left-sided chest pain. She describes it as constant, aching currently 10/24. She states she also has left-sided rib pain under her left breast which is worse with bending over for the past few months. She denies any radiation of her chest pain. She admits to occasional left arm numbness and nausea this morning. She denies any dizziness. She states her shortness of breath is worse when laying flat. She states she was seen here recently and diagnosed with CHF and started on Lasix. She states she originally started on 20 mg and this was increased within 1 day to 40 mg. She states her last dose was 6 days ago after she ran out. She attempted to call her primary care doctor but they were on vacation. Related Data Home Medications Medication Instructions Recorded Confirmed Lantus U-100 Insulin 48 units SUB-Q DAILY 04/08/14 11/21/18 lamotrigine [Lamictal] 1 tab PO BID 04/08/14 11/21/18 acetaminophen-codeine 1 tab PO Q6H PRN 12/09/14 11/21/18 [Tylenol-Codeine #3] nitroglycerin [Nitrostat] 0.4 mg SUBLINGUAL Q5 MIN PRN X3 07/01/15 11/05/18 PRN #15 tab aspirin [Adult Low Dose Aspirin] 81 mg PO DAILY #30 tab-cap 05/29/16 11/21/18 lisinopril 10 mg PO DAILY #90 tab-cap 07/24/16 11/21/18 rosuvastatin [Crestor] 40 mg PO QPM 01/03/18 11/21/18 isosorbide mononitrate 30 mg PO DAILY #30 tabcr 01/04/18 11/21/18 multivitamin [Daily Multi-Vitamin] 1 tab DAILY 01/04/18 11/21/18 vitamin B complex [B-Complex] See Rx Instructions .ROUTE .COMPLEX 01/04/18 11/21/18 Lantus U-100 Insulin 52 unit SUBCUT DAILY 11/05/18 11/21/18 Narcan 1 spray INTRANASAL ONCE PRN 11/05/18 11/21/18 alprazolam 0.5 mg PO PRN PRN 11/05/18 11/21/18 citalopram 20 mg PO DAILY 11/05/18 11/21/18 cyclobenzaprine 10 mg PO HS PRN 11/05/18 11/21/18 esomeprazole magnesium [Nexium] 40 mg PO DAILY 11/05/18 11/21/18 furosemide [Lasix] 20 mg PO DAILY #14 tab 11/05/18 11/21/18 magnesium 800 mg PO DAILY 11/05/18 11/21/18 Narcan 4 mg PRN PRN 11/21/18 11/21/18 furosemide [Lasix] 40 mg PO DAILY #30 tab 11/21/18 metoprolol succinate 50 mg DAILY 11/21/18 11/21/18 nystatin 100,000 unit BID 11/21/18 11/21/18 Previous Rx's Medication Instructions Recorded nitroglycerin [Nitrostat] 0.4 mg SUBLINGUAL Q5 MIN PRN X3 07/01/15 PRN #15 tab isosorbide mononitrate 30 mg PO DAILY #30 tabcr 01/04/18 furosemide [Lasix] 20 mg PO DAILY #14 tab 11/05/18 furosemide [Lasix] 40 mg PO DAILY #30 tab 11/21/18 Allergies Allergy/AdvReac Type Severity Reaction Status Date / Time ibuprofen AdvReac Intermediate upset Unverified 11/05/18 08:22 stomach General CHRIS: 2 Review of Systems Review of Systems All systems reviewed & are unremarkable except as noted in HPI and below Constitutional Reports as per HPI, Denies chills and Denies fever(s) Eyes Denies blurry vision ENT Denies dizziness, Denies sore throat and Denies throat swelling Cardiovascular Reports chest pain and Denies dyspnea Respiratory Denies cough and Denies dyspnea Gastrointestinal Denies abdominal pain, Denies diarrhea and Denies vomiting Genitourinary Denies hematuria and Denies dysuria Musculoskeletal Denies back pain and Denies numbness Integumentary/Breasts Denies lesions and Denies rash Neurologic Denies dizziness, Denies focal weakness and Denies numbness Allergic/Immunologic Denies throat swelling [facility] Medical History (Updated 11/21/18 @ 09:40 by Brigid Newberry DO) Diabetes Fibromyalgia GERD (gastroesophageal reflux disease) Hypertension Ischemic cardiomyopathy (Acute) Sleep apnea Surgical History Hx of CABG (Chronic) Social History Smoking/Tobacco Use Status: Current every day Drug use: Never Substance use type: does not use Do you feel safe at home: Yes Do you feel safe in your relationship?: Yes History History Para 4 Hx # Term Pregnancies Multiple births Hx # Pregnancies Ectopic pregnancies AB induced Hx Number of Living Children AB spontaneous Exam Const General: cooperative, healthy appearing and no acute distress HENMT Head: normal to inspection Face and sinus: normal facial exam Eyes General: appearance normal, both eyes and all related structures Pupils: PERRL EOM: EOM intact bilaterally Neck Neck: normal visual inspection and No submandibular swelling Lymphatic: no lymphadenopathy noted Chest Chest: normal inspection of the chest and no tenderness Resp Effort & Inspection: normal respiratory effort and able to speak in complete sentences Auscultation: diminished lung sounds bilaterally in the lower lung white Cardio Rate: regular rate Rhythm: regular rhythm GI Inspection: normal to inspection Palpation: soft, not firm, not rigid and nontender Auscultation: normal bowel sounds Back/Spine/Pelvis Thoracic/Lumbar Spine: thoracic and lumbar spine normal to inspection Skin General skin exam: no rashes or lesions noted Neuro General: alert, awake and oriented x3 Cognition: normal cognition Speech: speech normal Motor: muscle tone normal throughout Sensory Exam: no sensory deficits noted Extrem General: normal to inspection, full ROM, normal capillary refill, no calf tenderness bilaterally and no edema Psych Appearance: grossly normal Mental Status: mental status grossly normal Speech and Movement: speech and movement normal Affect: normal affect
--- NOTE | 2018-11-21 10:11 | DI.CT_ITS ---
SYMPTOM/DIAGNOSIS: CHEST PAIN, UPPER ABD PAIN, R/O PE/PANCREATITIS CT ANGIOGRAPHY CHEST/ABDOMEN/PELVIS: 11/21/18 CT angiography was performed with multi slice acquisition and multi planar and 3D reconstruction. CT angiography of the chest, abdomen and pelvis was performed with pulmonary embolus protocol timing of thoracic scanning. There is no evidence of pulmonary embolic disease. Thoracic aorta is not well opacified. There is some prominence of the pulmonary interstitial markings and there are diffuse mild changes of COPD. There is an irregular pleural based nodule/mass measuring up to about 18 x 8 mm in diameter in the left lung base laterally which lies in the lingula. No other focal nodule or consolidation seen. No pleural effusion or pneumothorax. Tracheobronchial tree appears intact. No mediastinal or hilar adenopathy.. Abdominal aorta is well opacified and appears normal as do its major branches. Liver, spleen and pancreas are normal in appearance. Adrenals and kidneys are unremarkable. No abdominal or pelvic adenopathy. Small fat containing umbilical hernia noted. No other significant abdominal wall hernia seen. Uterus is atrophic or absent. The appendix appears normal. No evidence of diverticulitis or bowel obstruction. CONCLUSION: 1. No evidence of pulmonary embolic disease. Thoracic aorta not well opacified with contrast material. 2. 18 x 8 mm in diameter peripheral pleural based nodule/mass of the lingula. This was not present on previous chest CT of 06/30/2015 and may represent an area of consolidation vs neoplasm. There was presumed lingular scarring seen on previous chest CT of December 2017. Follow up chest CT suggested in 4-6 weeks if there is a clinical suspicion of pneumonia and if the findings do not resolve evaluation with tissue sampling or PET CT should be considered to rule out neoplastic disease. 3. No significant abnormality identified on scanning of the abdomen.
[2018-11-21 10:13] LABS: Abs Immature Grans 0.02 k/cumm (0.0-0.09); Absolute Basophil Count 0.02 k/cumm (0.0-0.2); Absolute Eosinophil Count 0.18 k/cumm (0.0-0.7); Absolute Lymphocyte Count 1.93 k/cumm (1.2-3.4); Absolute Monocyte Count 0.82 k/cumm (0.11-0.7); Absolute Neutrophil Count 4.87 k/cumm (1.2-6.7); Basophils % 0.3; Eosinophils % 2.3; HCT 34.7 % (36.0-46.0); HGB 11.3 g/dL (12.0-15.5); Immature Grans % 0.3; Lymphocytes % 24.6; Mean Corp. HGB Concentration 32.6 g/dL (32.0-36.0); Mean Corpuscular Hemoglobin 30.4 pg (27.0-33.0); Mean Corpuscular Volume 93.3 fL (80-95); Mean Platelet Volume 9.7 fL (8.0-11.0); Monocytes % 10.5; Platelet Count 242 x1000/uL (130-400); RBC 3.72 m/cumm (4.00-5.20); White Blood Cell Count 7.84 k/cumm (4.4-10.8)
[2018-11-21 10:24] LABS: ALT 18 U/L (12-78); AST 17 U/L (15-37); Albumin 3.4 g/dL (3.4-5.0); Alkaline Phosphatase 84 U/L (46-116); BUN 11 mg/dL (7-18); Bilirubin, Total 0.5 mg/dL (0.2-1.0); CREATININE 0.69 mg/dL (0.55-1.02); Calcium 8.8 mg/dL (8.5-10.1); Chloride 105 mmol/L (98-107); Glucose 251 mg/dL (70-100); Magnesium 1.8 mg/dL (1.8-2.4); NT-proBNP 809 pg/mL; Potassium 4.6 mmol/L (3.5-5.1); Sodium 139 mmol/L (136-145); Total Protein 7.2 g/dL (6.4-8.2)
[2018-11-21 10:25] LABS: Troponin I < 0.05 ng/mL (0.00-0.06)
[2018-11-21 10:26] LABS: Lipase 72 U/L (73-393)
[2018-11-21] MEDS: Prochlorperazine 10 MG/2 ML VIAL IVP (10:27)
[2018-11-21] MEDS: FAMOTIDINE 20 MG/50 ML BAG 200 MG IVPB (10:27)
[2018-11-21] MEDS: Furosemide 40 MG/4 ML VIAL IVP (10:27)
[2018-11-21] MEDS: Omnipaque 350 MG/ML 100 ML BTL IJ (11:08)
--- NOTE | 2018-11-21 11:36 | NUR.NOTE ---
Nursing Note: pt resting in stretcher with eyes closed. facial expression relaxed, reports moderate improvement in symptoms. VSS. Will continue to monitor.
[2018-11-21 13:31] LABS: Troponin I < 0.05 ng/mL (0.00-0.06)
--- NOTE | 2018-11-21 13:36 | NUR.NOTE ---
Nursing Note: pt resting in bed, no signs of distress. states that she is no longer having chest pain.
== END 2018-11-21 14:32 | disposition home or self-care (01) ==
PROVIDERS: Emergency Provider Physician Assistant; PCP Internal Medicine
DX: R06.00 Dyspnea, unspecified (principal); R07.9 Chest pain, unspecified; I50.9 Heart failure, unspecified; R91.1 Solitary pulmonary nodule; Z91.14 Patient's other noncompliance with medication regimen; E11.9 Type 2 diabetes mellitus without complications; I11.9 Hypertensive heart disease without heart failure; Z79.4 Long term (current) use of insulin
CPT/HCPCS: 36415; 71275; 74177; 80053; 83690; 93005; 96374; 96375; 99285; 83735; 83880; 84484; 85025; 93010; J0780; J1940; J3490

== ENCOUNTER 2018-11-24 10:25 | Outpatient (REF) | payer MEDICARE, SELFPAY ==
[2018-11-24 12:22] LABS: HCT 36.7 % (36.0-46.0); HGB 12.1 g/dL (12.0-15.5); Mean Corpuscular Volume 94.1 fL (80-95); Mean Platelet Volume 10.1 fL (8.0-11.0); Platelet Count 253 x1000/uL (130-400); RBC Distribution Width 13.1 % (11.7-14.6); White Blood Cell Count 8.17 k/cumm (4.4-10.8)
[2018-11-24 12:42] LABS: Iron 63 ug/dL (50-175); Total Iron Binding Capacity 277 ug/dL (250-450); Transferrin Sat 23 % (15-50)
== END 2018-11-24 10:45 ==
LOC: NCHCN 10:25
PROVIDERS: PCP Nurse Practitioner Family; Visit Provider Nurse Practitioner Family
DX: R06.02 Shortness of breath (principal); E11.9 Type 2 diabetes mellitus without complications; Z79.4 Long term (current) use of insulin
CPT/HCPCS: 85027; 83540; 83550

== ENCOUNTER 2018-11-30 00:30 | Outpatient (CLI) | payer MEDICARE, SELFPAY ==
--- NOTE | 2018-11-30 10:30 | MERGE_ITS ---
*[facility]* *[facility]* [address] [place] [address] Date of study: 11/30/2018 Transthoracic Echocardiography M-mode, complete 2D, complete spectral Doppler, and color Doppler *STUDY CONCLUSIONS* Impressions: Dilated cardiomyopathy, with elevated left-sided pressure, worse from the study of December 2017. Severe mitral regurgitation, unchanged from the study of December 2017. Summary: 1. Left ventricle: The cavity size was moderately dilated. Wall thickness was normal. Systolic function was moderately reduced. The estimated ejection fraction was 35-40%. Diffuse hypokinesis with regional variations. Akinesis of the mid-apicalinferoseptal myocardium. Akinesis of the apicalinferior myocardium. Dyskinesis of the basalinferior myocardium. Severe hypokinesis of the basalinferolateral myocardium. Doppler parameters are consistent with high ventricular filling pressure. 2. Aortic valve: There was moderate regurgitation. 3. Mitral valve: Mild thickening. No echocardiographic evidence for prolapse. There was severe regurgitation. 4. Left atrium: The atrium was mildly dilated. 5. Right ventricle: The cavity size was normal. Wall thickness was normal. Systolic function was normal. 6. Pulmonary arteries: Pulmonary systolic pressure was increased, in the range of 50mm Hg to 55mm Hg. *PATIENT PRESENTATION* Height: 160cm (63in ) S/D Pressure: 110 / 60 Weight: 83.5kg (183.6lb ) BSA: 1.96m^2 Test start time: 10:44 AM. Test stop time: 11:45 AM. 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 This study was interpreted by [facility]. Pertinent images and digital data are archived for permanent storage and are available for subsequent review. Comparison was made to the study of 01/04/2018. Study status: Routine. Transthoracic echocardiography. M-mode, complete 2D, complete spectral Doppler, and color Doppler. A Transthoracic Echocardiogram was performed. Scanning was performed from the parasternal, apical, subcostal, and suprasternal notch acoustic windows. Images were obtained using an [id number] cardiac ultrasound machine. Image quality was adequate. Study completion: The patient tolerated the procedure well. There were no complications. History: PMH: Mitral insufficiency i34.0. *CARDIAC ANATOMY* Left ventricle: The cavity size was moderately dilated. Wall thickness was normal. Systolic function was moderately reduced. The estimated ejection fraction was 35-40%. Diffuse hypokinesis with regional variations. Regional wall motion abnormalities: Akinesis of the mid-apicalinferoseptal myocardium. Akinesis of the apicalinferior myocardium. Dyskinesis of the basalinferior myocardium. Severe hypokinesis of the basalinferolateral myocardium. Doppler parameters are consistent with high ventricular filling pressure. Aortic valve: Trileaflet; normal thickness leaflets. Mobility was not restricted. Doppler: Transvalvular velocity was within the normal range. There was no stenosis. There was moderate regurgitation. VTI ratio of LVOT to aortic valve: 0.71. Valve area (VTI): 2.2cm^2. Indexed valve area (VTI): 1.1cm^2/m^2. Peak velocity ratio of LVOT to aortic valve: 0.63. Valve area (Vmax): 2cm^2. Indexed valve area (Vmax): 1cm^2/m^2. Mean velocity ratio of LVOT to aortic valve: 0.64. Valve area (Vmean): 2cm^2. Indexed valve area (Vmean): 1cm^2/m^2. Mean gradient (S): 4.5mm Hg. Peak gradient (S): 8mm Hg. Aorta: Aortic root: The aortic root was normal in size. Ascending aorta: The ascending aorta was normal in size. Mitral valve: Mild thickening. Mobility was not restricted. No echocardiographic evidence for prolapse. Doppler: Transvalvular velocity was within the normal range. There was no evidence for stenosis. There was severe regurgitation. Valve area by pressure half-time: 3.8cm^2. Indexed valve area by pressure half-time: 1.9cm^2/m^2. Peak gradient (D): 10mm Hg. Left atrium: The atrium was mildly dilated. Right ventricle: The cavity size was normal. Wall thickness was normal. Systolic function was normal. Pulmonic valve: Structurally normal valve. Doppler: Transvalvular velocity was within the normal range. There was no evidence for stenosis. There was mild regurgitation. Peak gradient (S): 3.3mm Hg. Tricuspid valve: Structurally normal valve. Doppler: Transvalvular velocity was within the normal range. There was no evidence for stenosis. There was mild regurgitation. Pulmonary artery: Pulmonary systolic pressure was increased, in the range of 50mm Hg to 55mm Hg. Right atrium: The atrium was normal in size. Pericardium: There was no pericardial effusion. Systemic veins: Inferior vena cava: Well visualized. The vessel was patent and normal in size. The respirophasic diameter changes were in the normal range (greater than or equal to 50%). Baseline ECG: Bradycardia. Measurements Left ventricle Value 01/04/2018 Reference LV ID, ED, PLAX (H) 6.1 cm 5.9 3.5 - 6.0 LV ID, ES, PLAX (H) 5.0 cm 4.8 2.1 - 4.0 LV PW thickness, ED, PLAX 0.8 cm 0.9 LV end-diastolic volume, 178 ml 163 1-p A2C LV ejection fraction, 1-p 44 % 35 A2C LV end-diastolic volume, 154 ml 103 1-p A4C LV ejection fraction, 1-p 38 % 37 A4C LV e', lateral 0.073 m/sec 0.088 LV E/e', lateral 22 15 LV e', medial 0.068 m/sec 0.063 LV E/e', medial 23 20 LV e', average 0.07 m/sec 0.075 LV E/e', average 23 17 Ventricular septum Value 01/04/2018 Reference IVS thickness, ED, PLAX 1.0 cm 0.8 LVOT Value 01/04/2018 Reference LVOT ID, A-P 2.0 cm 2.0 LVOT area 3.1 cm^2 3.3 LVOT peak velocity, S 0.89 m/sec 0.95 LVOT mean velocity, S 0.65 m/sec 0.65 LVOT VTI, S 22.2 cm 23.4 LVOT peak gradient, S 3.1 mm Hg 3.6 LVOT mean gradient, S 1.8 mm Hg 2 Stroke volume (SV), LVOT 69 ml 77 DP Stroke index (SV/bsa), 35 ml/m^2 39 LVOT DP Aortic valve Value 01/04/2018 Reference Aortic valve peak 1.4 m/sec 1.7 velocity, S Aortic valve mean 1 m/sec 1.2 velocity, S Aortic valve VTI, S 31.0 cm 37.6 Aortic mean gradient, S 4.5 mm Hg 6.3 Aortic peak gradient, S 8 mm Hg 10.9 VTI ratio, LVOT/AV 0.71 0.62 Aortic valve area, VTI 2.2 cm^2 2 Velocity ratio, peak, 0.63 0.58 LVOT/AV Aortic valve area, peak 2 cm^2 1.9 velocity Velocity ratio, mean, 0.64 0.54 LVOT/AV Aortic valve area, mean 2 cm^2 1.8 velocity Aortic valve area/bsa, 1 cm^2/m^2 0.9 mean velocity Aortic regurg deceleration 500 cm/s^2 400 Aortic regurg pressure 270 ms 324 half-time Aorta Value 01/04/2018 Reference Aortic root ID, ED 3.0 cm 3.0 Ascending aorta ID, A-P, S 3.4 cm 3.2 RVOT Value 01/04/2018 Reference RVOT VTI, S 21.3 cm 22.9 Left atrium Value 01/04/2018 Reference LA volume/bsa, ES, 1-p A4C 43 ml/m^2 32 LA volume, ES, 2-p 69 ml 50 LA volume/bsa, ES, 2-p 35 ml/m^2 26 Mitral valve Value 01/04/2018 Reference Mitral E-wave peak 1.58 m/sec 1.29 velocity Mitral A-wave peak 0.59 m/sec 0.84 velocity Mitral deceleration time 200 ms 323 150 - 230 Mitral pressure half-time 58 ms 94 Mitral peak gradient, D 10 mm Hg 6.6 Mitral E/A ratio, peak 2.66 1.52 Mitral valve area, PHT, DP 3.8 cm^2 2.4 Mitral peak LV-LA 144.6 mm Hg gradient, S Mitral maximal regurg 6.01 m/sec velocity, PISA Mitral regurg VTI, PISA 206.4 cm Pulmonary veins Value 01/04/2018 Reference Pulmonary vein peak 0.53 m/sec velocity, S Pulmonary vein peak 1.19 m/sec velocity, D Pulmonary vein velocity 0.45 ratio, peak, S/D Tricuspid valve Value 01/04/2018 Reference Tricuspid regurg peak 3.5 m/sec 2.9 velocity Tricuspid peak RV-RA 49.2 mm Hg 34.8 gradient Right atrium Value 01/04/2018 Reference RA area, ES, A4C 19.1 cm^2 17 8.3 - 19.5 Pulmonic valve Value 01/04/2018 Reference Pulmonic peak gradient, S 3.3 mm Hg 5 Pulmonic regurg velocity, 0.91 m/sec ED Legend: (L) and (H) bailey values outside specified reference range. I have personally reviewed the images and have reviewed and edited the reported findings. Electronically signed by Jose R Healy 11/30/2018 13:09
== END 2018-11-30 00:50 ==
PROVIDERS: PCP Nurse Practitioner Family; Visit Provider Nurse Practitioner Family
DX: I42.0 Dilated cardiomyopathy (principal); I08.0 Rheumatic disorders of both mitral and aortic valves; I50.1 Left ventricular failure, unspecified; I25.2 Old myocardial infarction
CPT/HCPCS: 93306

== ENCOUNTER 2018-12-07 10:11 | Outpatient (CLI) | payer MEDICARE, SELFPAY ==
[2018-12-07 11:11] LABS: BUN 14 mg/dL (7-18); CREATININE 0.67 mg/dL (0.55-1.02); Calcium 9.4 mg/dL (8.5-10.1); Chloride 104 mmol/L (98-107); Glucose 267 mg/dL (70-100); NT-proBNP 420 pg/mL; Potassium 4.6 mmol/L (3.5-5.1); Sodium 139 mmol/L (136-145)
== END 2018-12-07 10:31 ==
PROVIDERS: PCP Nurse Practitioner Family; Visit Provider Internal Medicine
DX: I50.9 Heart failure, unspecified (principal)
CPT/HCPCS: 36415; 80048; 83880

== ENCOUNTER → 2018-12-23 11:56 | Outpatient (BNVA) | payer MEDICARE, SELFPAY | PROVIDERS: PCP Nurse Practitioner Family; Visit Provider Internal Medicine Cardiovascular Disease | DX: I25.10 Atherosclerotic heart disease of native coronary artery without angina pectoris (principal); I34.0 Nonrheumatic mitral (valve) insufficiency; I25.5 Ischemic cardiomyopathy; E11.9 Type 2 diabetes mellitus without complications; I11.0 Hypertensive heart disease with heart failure; I50.9 Heart failure, unspecified | CPT/HCPCS: 99214 ==

== ENCOUNTER 2019-01-02 12:57 | Outpatient (REF) | payer MEDICARE, SELFPAY ==
[2019-01-02 21:36] LABS: HCT 36.2 % (36.0-46.0); HGB 11.5 g/dL (12.0-15.5); Mean Corp. HGB Concentration 31.8 g/dL (32.0-36.0); Mean Corpuscular Hemoglobin 30.2 pg (27.0-33.0); Mean Platelet Volume 10.8 fL (8.0-11.0); Platelet Count 368 x1000/uL (130-400); RBC 3.81 m/cumm (4.00-5.20); RBC Distribution Width 13.6 % (11.7-14.6); White Blood Cell Count 8.24 k/cumm (4.4-10.8)
[2019-01-02 21:47] LABS: ALT 97 U/L (12-78); AST 58 U/L (15-37); Albumin 3.2 g/dL (3.4-5.0); Alkaline Phosphatase 227 U/L (46-116); Anion Gap 10.2 mmol/L (3-11); BUN 13 mg/dL (7-18); Bilirubin, Total 0.4 mg/dL (0.2-1.0); C-Reactive Protein 9.92 mg/dL (0.0-0.3); CO2 25.8 mmol/L (21.0-32.0); CREATININE 0.76 mg/dL (0.55-1.02); Chloride 102 mmol/L (98-107); Glucose 302 mg/dL (70-100); Potassium 4.8 mmol/L (3.5-5.1); Sodium 138 mmol/L (136-145); Total Protein 7.4 g/dL (6.4-8.2)
[2019-01-02 22:17] LABS: ESR 105 mm/hr (0-30)
[2019-01-04 10:05] LABS: Hepatitis B Surface Ag Negative (NEGAT)
[2019-01-04 10:28] LABS: HBs Antibody, Quant <3.1 mIU/mL; Hepatitis B Surface Ab Negative; Hepatitis C Ab w Rflx HCV PCR Negative (NEGAT)
== END 2019-01-02 13:17 ==
LOC: NCHCN 12:57
PROVIDERS: PCP Nurse Practitioner Family; Visit Provider Internal Medicine
DX: R07.89 Other chest pain (principal); R10.11 Right upper quadrant pain; Z11.59 Encounter for screening for other viral diseases
CPT/HCPCS: 80053; 85027; 85652; 86706; 86803; 87340; 86140

== ENCOUNTER 2019-01-03 20:42 | Emergency (ER) | payer MEDICARE, SELFPAY ==
--- NOTE | 2019-01-03 20:44 | W.ED.GENAD ---
Discharge Plan Disposition Patient Disposition: HOME Condition: Good Discharge Details Chief Complaint: Abd Prob Clinical Impression: Abdominal pain, RUQ, Abnormal CT of liver Primary Care Provider: Trice Gil ED Provider: Rah Walton Home Meds and New Rx's Prescriptions: Continued nicotine [Nicoderm CQ] 14 mg/24 hr patch 24 hour 1 patch TD DAILY RF: 0 lamotrigine [Lamictal] 25 mg tablet 25 mg PO DAILY RF: 0 magnesium L-lactate 84 mg tablet extended release 84 mg PO DAILY RF: 0 aspirin [Adult Low Dose Aspirin] 81 MG tablet,delayed release (DR/EC) 81 mg PO DAILY Qty: 30 RF: 6 lisinopril 10 MG tablet 10 mg PO DAILY Qty: 90 RF: 4 lamotrigine [Lamictal] 100 MG tablet 1 tab PO BID RF: 0 acetaminophen-codeine [Tylenol-Codeine #3] 1 EACH tablet 1 tab PO Q6H PRN (Reason: Pain) RF: 0 nitroglycerin [Nitrostat] 0.4 MG tablet, sublingual 0.4 mg Sublingual Q5 MIN PRN X3 PRN (Reason: Chest Pain) Qty: 15 RF: 0 rosuvastatin [Crestor] 40 MG tablet 40 mg PO QPM RF: 0 multivitamin [Daily Multi-Vitamin] 1 EACH tablet 1 tab DAILY RF: 0 vitamin B complex [B-Complex] 1 EACH tablet See Rx Instructions .ROUTE .COMPLEX RF: 0 isosorbide mononitrate 30 MG tablet extended release 24 hr 30 mg PO DAILY Qty: 30 RF: 0 cyclobenzaprine 10 mg Tablet 10 mg PO HS PRNRF: 0 Lantus U-100 Insulin 100 unit/mL Solution 52 unit subcut DAILY RF: 0 alprazolam 0.5 mg Tablet 0.5 mg PO PRN PRNRF: 0 citalopram 20 mg Tablet 20 mg PO DAILY RF: 0 esomeprazole magnesium [Nexium] 20 mg Capsule,Delayed Release(Dr/Ec) 40 mg PO BID RF: 0 metoprolol succinate 50 mg Tablet Extended Release 24 Hr 50 mg DAILY RF: 0 Narcan 4 mg/actuation [place],Non-Aerosol 4 mg PRN PRNRF: 0 furosemide [Lasix] 40 mg tablet 40 mg PO DAILY Qty: 30 RF: 0 nystatin 100,000 unit/gram cream 100,000 unit topical BID PRNRF: 0 Discharge Instructions Instructions: Abdominal Pain (ED) Additional Instructions: Your CT scan at this time per the radiology shows a normal-appearing gallbladder, there is a significant amount of stool and gas in your abdomen especially in your right upper quadrant. This may be the cause of your pain. There is an atypical uptake in your liver, which may be nothing, however it does warrant further evaluation with an ultrasound. We have scheduled one for you on the same day as your echocardiogram here on the . Please take Tylenol and Motrin as needed for pain, take Pepto-Bismol or Maalox to help ease her stomach. Drink plenty of fluids. If you notice any worsening of your symptoms, or any new symptoms such as vomiting, diarrhea, fever, chills, shortness of breath, chest pain, numbness, weakness, or fainting , please return immediately to the emergency department for reevaluation. Please follow up with your primary care provider as soon as possible for reassessment and reevaluation. As always, it was a pleasure participating in your medical care today. Referrals: Trice Gil [Primary Care Provider] - Medical Decision Making This is a pleasant 63-year-old female with a past medical history of notable cardiac disease, fibromyalgia, congestive heart failure and 2 stents, who presents today with 5 days of right upper quadrant pain. Initially it was being managed with NSAIDs but no longer. Severe pain, nausea. No significant vomiting. No acholic stool. Physical exam demonstrates notable tenderness in the right upper quadrant, bedside limited ultrasound demonstrates an atypical image that is difficult to differentiate between a large obvious gating bolus of air in the bowel versus notably distended gallbladder. We will get a CT scan for further evaluation, treat patient's pain and reassess. Of note recent labs demonstrated normal bilirubin and relatively benign liver function, however alk phos is significantly elevated. 10:59 PM Reassessment patient is feeling much better at this time. Laboratory work-up is relatively unremarkable, no white count or leukocytosis, hemoglobin 11, platelets stable, liver function, bilirubin normal. Lipase normal. Electrolytes normal. CT scan results demonstrate evidence of a large amount of stool and gas, no signs of obstruction. Gallbladder is unremarkable, appendix unremarkable. There is an atypical enhancement of the liver, I did contact Dr. Casey the virtual radiologist and he states that this is not consistent with a infarct, but does recommend outpatient nonemergent ultrasound for further evaluation of mass. Patient's symptomatology still notably atypical. Still pending EKG and troponin. With her improvement of her symptoms and a relatively benign CT scan I feel that there is no evidence of acute life-threatening intra-abdominal pathology. 12:11 AM EKG and troponin are unremarkable and unchanged compared to prior. Patient is tolerated p.o. well, she is feeling much better. Repeat abdominal exam demonstrates no evidence of an acute surgical abdomen. Patient feels well and would like to go home. We will schedule an outpatient ultrasound of her gallbladder and liver on the of this month. She does have an echocardiogram scheduled for that time already. I had a long discussion regarding red flags which to return, as well as appropriate diet for potential biliary colic. I have extensively reviewed the treatment plan and discharge instructions with the patient. I have addressed all patient concerns at this time. The patient was made aware of what symptoms to monitor for that would warrant a return to the emergency department. Discussed the plan with the patient, they demonstrate verbal understanding and agreement with our assessment and plan at this time. EKG 23: 00 Rate 94, DC 192, QTc 433, sinus rhythm, 1 mm of elevation in V1 and V2, no ST depression, EKG from 11/21/2018 demonstrates identical 1 mm elevation, no other acute changes or other significant abnormalities. Signs and symptoms are inconsistent with STEMI, and EKG is clinically consistent with prior EKG. HPI General Date/Time Provider Initiated Documentation: 01/03/19 20:42. HPI Narrative: This is a 63-year-old female with a history of diabetes, GERD, hypertension, hyperlipidemia, fibromyalgia, coronary artery disease, ischemic cardiomyopathy, CABG in 2016 and 2 cardiac stents, who presents today for evaluation of epigastric pain. Patient states that for the last 4 days she has had mild to moderate right upper quadrant pain, initially modified by Tylenol and Motrin but now unaffected by that. She did go to see her PCP earlier who was concerned that there may be questionable gallbladder pathology at that time. Since then unfortunately her symptoms have continued to worsen. Pain is noted as severe sharp and aching in the right upper quadrant, worse with palpation movement cough or food. She is not eaten anything secondary to the pain and nausea. She denies any chest pain, shortness of breath, fever, chills, acholic stools, hematemesis, hematochezia. She denies any other complaints or modifying factors at this time. Related Data Home Medications Medication Instructions Recorded Confirmed lamotrigine [Lamictal] 1 tab PO BID 04/08/14 01/03/19 acetaminophen-codeine 1 tab PO Q6H PRN 12/09/14 01/03/19 [Tylenol-Codeine #3] nitroglycerin [Nitrostat] 0.4 mg SUBLINGUAL Q5 MIN PRN X3 07/01/15 01/03/19 PRN #15 tab aspirin [Adult Low Dose Aspirin] 81 mg PO DAILY #30 tab-cap 05/29/16 01/03/19 lisinopril 10 mg PO DAILY #90 tab-cap 07/24/16 01/03/19 rosuvastatin [Crestor] 40 mg PO QPM 01/03/18 01/03/19 isosorbide mononitrate 30 mg PO DAILY #30 tabcr 01/04/18 01/03/19 multivitamin [Daily Multi-Vitamin] 1 tab DAILY 01/04/18 01/03/19 vitamin B complex [B-Complex] See Rx Instructions .ROUTE .COMPLEX 01/04/18 01/03/19 Lantus U-100 Insulin 52 unit SUBCUT DAILY 11/05/18 01/03/19 alprazolam 0.5 mg PO PRN PRN 11/05/18 01/03/19 citalopram 20 mg PO DAILY 11/05/18 01/03/19 cyclobenzaprine 10 mg PO HS PRN 11/05/18 01/03/19 esomeprazole magnesium [Nexium] 40 mg PO BID 11/05/18 01/03/19 Narcan 4 mg PRN PRN 11/21/18 01/03/19 furosemide [Lasix] 40 mg PO DAILY #30 tab 11/21/18 01/03/19 metoprolol succinate 50 mg DAILY 11/21/18 01/03/19 lamotrigine 25 mg tablet 25 mg PO DAILY tab 12/23/18 01/03/19 magnesium L-lactate 84 mg 84 mg PO DAILY 12/23/18 01/03/19 tablet,extended release nicotine 14 mg/24 hr daily 1 patch TD DAILY 12/23/18 01/03/19 transdermal patch nystatin 100,000 unit/gram topical 100,000 unit TOPICAL BID PRN 12/23/18 01/03/19 cream Previous Rx's Medication Instructions Recorded nitroglycerin [Nitrostat] 0.4 mg SUBLINGUAL Q5 MIN PRN X3 07/01/15 PRN #15 tab isosorbide mononitrate 30 mg PO DAILY #30 tabcr 01/04/18 furosemide [Lasix] 40 mg PO DAILY #30 tab 11/21/18 Allergies Allergy/AdvReac Type Severity Reaction Status Date / Time ibuprofen AdvReac Intermediate upset Unverified 12/23/18 12:13 stomach General CHRIS: 2 Review of Systems Review of Systems All systems reviewed & are unremarkable except as noted in HPI and below PFSH Medical History (Updated 12/23/18 @ 12:37 by Jenn Adam MD) CHF (congestive heart failure) (Chronic) Diabetes Fibromyalgia GERD (gastroesophageal reflux disease) Hypertension Ischemic cardiomyopathy (Acute) Sleep apnea Surgical History Hx of CABG (Chronic) Social History (Updated 12/23/18 @ 12:35 by Marbella Rivera RN) Smoking/Tobacco Use Status: Current every day Tobacco Type: cigarettes Quit status: considering quitting Drug use: Never Substance use type: does not use Do you feel safe at home: Yes Do you feel safe in your relationship?: Yes History History Para 4 Hx # Term Pregnancies Multiple births Hx # Pregnancies Ectopic pregnancies AB induced Hx Number of Living Children AB spontaneous Exam Narrative Exam Narrative: 1.Const: Well-nourished, Well-developed, appearing stated age 2.Eyes: PERRL, no conjunctival injection, and symmetrical lids. 3.ENT: Atraumatic external nose and ears. Moist MM. Neck: Symmetric, trachea midline, No thyromegaly. 4.CVS: +S1/S2, No murmurs or gallops. Peripheral pulses 2+ and equal in all extremities. Brisk capillary refill in all extremities. 5.RESP: Unlabored respiratory effort. Clear to auscultation bilaterally. No wheezes rales or rhonchi 6.GI: Mild distention, notable tenderness in the right upper quadrant of the abdomen. Bedside limited ultrasound was challenging, but there appears to be either a large component of air in the bowel right over the gallbladder or a notably distended gallbladder. Notable positive sonographic and physical exam Velasco sign. Mild pain in the right lower quadrant. No left-sided tenderness. 7.MSK: Normocephalic/Atraumatic, Extremities w/o deformity or ttp No cyanosis or clubbing, Normal movement of all extremities 8.Skin: Warm, Dry. No rashes or lesions. 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 Sensation grossly intact, no focal neurologic deficits. 10.Psych: (AAO) x3. Appropriate mood and affect
[2019-01-03 20:49] VITALS: BP 135/43; PULSE 93; RESP 22; TEMP 36.6; O2SAT 98
[2019-01-03] MEDS: MORPHine 10 MG/ML VIAL 4 MG IVP (21:23)
[2019-01-03 21:31] VITALS: BP 134/58; PULSE 79
[2019-01-03 21:38] LABS: Abs Immature Grans 0.03 k/cumm (0.0-0.09); Absolute Basophil Count 0.04 k/cumm (0.0-0.2); Absolute Eosinophil Count 0.14 k/cumm (0.0-0.7); Absolute Lymphocyte Count 2.11 k/cumm (1.2-3.4); Absolute Monocyte Count 1.17 k/cumm (0.11-0.7); Absolute Neutrophil Count 6.39 k/cumm (1.2-6.7); Basophils % 0.4; Eosinophils % 1.4; HCT 34.2 % (36.0-46.0); Immature Grans % 0.3; Lymphocytes % 21.4; Mean Corp. HGB Concentration 32.2 g/dL (32.0-36.0); Mean Corpuscular Hemoglobin 30.1 pg (27.0-33.0); Mean Corpuscular Volume 93.4 fL (80-95); Mean Platelet Volume 9.5 fL (8.0-11.0); Monocytes % 11.8; Neutrophils % 64.7; Platelet Count 404 x1000/uL (130-400); RBC 3.66 m/cumm (4.00-5.20); RBC Distribution Width 13.5 % (11.7-14.6); White Blood Cell Count 9.88 k/cumm (4.4-10.8)
[2019-01-03 21:40] LABS: ALT 71 U/L (12-78); AST 40 U/L (15-37); Alkaline Phosphatase 231 U/L (46-116); Anion Gap 10.1 mmol/L (3-11); BUN 16 mg/dL (7-18); Bilirubin, Total 0.4 mg/dL (0.2-1.0); CO2 25.9 mmol/L (21.0-32.0); CREATININE 0.86 mg/dL (0.55-1.02); Calcium 9.1 mg/dL (8.5-10.1); Chloride 100 mmol/L (98-107); Glucose 200 mg/dL (70-100); Lipase 55 U/L (73-393); Sodium 136 mmol/L (136-145); Total Protein 8.3 g/dL (6.4-8.2)
[2019-01-03 21:43] LABS: PTT Activated 28.9 sec (21.0-31.4); Prothrombin Time 9.6 sec (9.3-11.0)
[2019-01-03] MEDS: Normal Saline 1,000 ML 500 ML IV (21:43)
--- NOTE | 2019-01-03 21:45 | DI.CT_ITS ---
SYMPTOM/DIAGNOSIS: RUQ TENDERNESS ABDOMEN AND PELVIC CT: CT examination of the abdomen and pelvis was performed with a bolus infusion of 100 cc's of Omnipaque 350. Note is made of mild cardiomegaly. The liver contains a poorly defined area of decreased attenuation measuring up to about 5 cm. in diameter in the posterior segment of the right hepatic lobe. This may represent an area of focal fat but the possibility of a mass is not excluded. MRI with hepatic protocol suggested for further evaluation. Pancreas, spleen, gallbladder and bile ducts are unremarkable. Adrenals and kidneys appear normal. No evidence of urinary tract calcification of obstruction. Abdominal aorta is of normal diameter and no major vascular abnormality is seen. No significant abdominal wall hernia is seen. No evidence of abdominal or pelvic adenopathy. Appendix is not specifically visualized but there is no evidence of appendicitis or diverticulitis. There has been a probable prior hysterectomy. CONCLUSION: No evidence of acute process however there is a poorly defined area of decreased attenuation in the right hepatic lobe, mass not excluded. Correlation with hepatic protocol MRI recommended.
[2019-01-03 21:46] VITALS: BP 136/51; PULSE 76
[2019-01-03] MEDS: Omnipaque 350 MG/ML 100 ML BTL IJ (21:50)
[2019-01-03 21:53] VITALS: O2SAT 94
[2019-01-03 21:55] VITALS: BP 140/67; PULSE 82
--- NOTE | 2019-01-03 22:27 | DI.VRAD_ITS ---
Addendum created by Jim Casey DO on 01/03/2019 10:54:18 PM EDT Case discussed with Dr. Rah Walton at approximately 10:50 PM on January 03, regarding subtle diminished enhancement in right lobe of the liver. The area could represent focal fatty infiltration. Given the patient's symptoms, correlation with ultrasound of the liver is recommended. Initial report created on 01/03/2019 10:26:39 PM EDT EXAM: CT Abdomen and Pelvis With Contrast EXAM DATE/TIME: 01/03/2019 9:21 PM CLINICAL HISTORY: 63 years old, female; Abdominal pain; Localized; Right upper quadrant (ruq); Patient HX: Ruq pain and tenderness for 4 days increasing in severity; Additional info: HX of gerd, chf, and ischemic cardiomyopathy TECHNIQUE: Imaging protocol: Axial computed tomography images of the abdomen and pelvis with intravenous contrast. Radiation optimization: All CT scans at this facility use at least one of these dose optimization techniques: automated exposure control; mA and/or kV adjustment per patient size (includes targeted exams where dose is matched to clinical indication); or iterative reconstruction. Contrast material: OMNIPAQUE 350; Contrast volume: 100 ml; Contrast route: IV; COMPARISON: CT CHEST PE ABD PELVIS W 11/21/2018 11:07 AM FINDINGS: Lungs: There is minimal bibasilar atelectasis. Pleural-based density laterally in the lingula measures smaller, now approximately 1 cm compared to 1.5 cm in November. Heart: Cardiomegaly. Liver: Subtle, ill-defined area of diminished enhancement is demonstrated in right lobe of liver measuring 1.9 x 4.5 cm. Gallbladder and bile ducts: Normal. No calcified stones. No ductal dilation. Pancreas: Normal. No ductal dilation. Spleen: Normal. No splenomegaly. Adrenals: Normal. No mass. Kidneys and ureters: Normal. No hydronephrosis. Stomach and bowel: There is no evidence of intestinal perforation or obstruction. There is a moderate to large amount of stool in the colon. Appendix: No evidence of appendicitis. Intraperitoneal space: Normal. No free air. No significant fluid collection. Vasculature: There are coronary artery calcifications. Lymph nodes: Normal. No enlarged lymph nodes. Bladder: Unremarkable as visualized. Reproductive: Status post hysterectomy. Bones/joints: Prior median sternotomy. The spine demonstrates mild degenerative changes at multiple levels. There is minimal anterolisthesis of L5 with respect to S1. Soft tissues: Infiltration of subcutaneous fat is noted dorsally about the sacrum. IMPRESSION: 1. Subtle area of diminished enhancement in right lobe of liver. Mass not excluded. Correlation with ultrasound is recommended. 2. Cardiomegaly. 3. Coronary artery disease. 4. A moderate to large amount of stool is demonstrated in colon. 5. Infiltration of subcutaneous fat about the sacrum is most likely due to third spacing. Other etiologies including inflammatory process or infection not excluded. Dictated and Authenticated by: Jim Casey MD. Ordering:ЕЛЕНА Monreal MD
[2019-01-03] MEDS: Ketorolac 15 MG/ML VIAL IVP (23:21)
[2019-01-03] MEDS: Acetaminophen 500 MG TAB 1000 MG PO (23:22)
[2019-01-03 23:36] LABS: Troponin I < 0.05 ng/mL (0.00-0.06)
[2019-01-04 00:04] VITALS: BP 109/51; PULSE 72; RESP 18; O2SAT 98
[2019-01-04 00:13] VITALS: BP 111/46; PULSE 91; RESP 18; O2SAT 99
--- NOTE | 2019-01-05 09:29 | W.ED.FU ---
Dr. Shoemaker notified the ED that patient's CT findings from ED visit 01/03/19 would be better further evaluated with an hepatic protocol MRI rather than ultrasound as vrad recommended. Patient was called at home to notify her of this. She states she will follow-up with Dr. Gardner. Called [facility] and discussed this with Dr. Gardner and he will follow up with patient.
== END 2019-01-04 00:14 | disposition home or self-care (01) ==
PROVIDERS: Emergency Provider Student in an Organized Health Care Education/Training Program; PCP Nurse Practitioner Family
DX: R10.11 Right upper quadrant pain (principal); R11.0 Nausea; R74.8 Abnormal levels of other serum enzymes; R93.2 Abnormal findings on diagnostic imaging of liver and biliary tract; E11.9 Type 2 diabetes mellitus without complications; Z79.4 Long term (current) use of insulin; I10 Essential (primary) hypertension
CPT/HCPCS: 36415; 80053; 83690; 93005; 96361; 96374; 96375; 99285; 74177; 84484; 85025; 85610; 85730; 93010; J1885; J2270; J3490

== ENCOUNTER 2019-01-05 01:10 | Outpatient (CLI) | payer MEDICARE, SELFPAY ==
--- NOTE | 2019-01-05 07:49 | DI.RAD_ITS ---
SYMPTOM/DIAGNOSIS: PLEURITIC CHEST PAIN R07.89 CHEST X-RAY: PA and lateral. Comparison 11/05/18 The heart is enlarged. The pulmonary vasculature is within normal limits. Sternal wires are in place. The lungs are clear. No effusions or pneumothoraces are identified. Age appropriate degenerative changes are seen in the spine. IMPRESSION: No acute pulmonary process. 2. Cardiomegaly.
--- NOTE | 2019-01-05 08:00 | DI.US_ITS ---
SYMPTOM/DIAGNOSIS: RUQ PAIN R10.11, F/U ABNL CT, ATYPICAL UPTAKE IN LIVER ABDOMINAL ULTRASOUND: Routine examination was performed. The visualized liver parenchyma is normal in appearance. There is no evidence of cholelithiasis. The common bile duct is of normal diameter. The pancreas and spleen appear intact. No renal abnormality is seen. The abdominal aorta is of normal diameter. Normal appearance of IVC. The hepatic abnormality seen on the CT scan may be further evaluated with an MRI of the liver. CONCLUSION: Normal abdominal ultrasound.
== END 2019-01-05 01:30 ==
PROVIDERS: PCP Nurse Practitioner Family; Visit Provider Internal Medicine
DX: R10.11 Right upper quadrant pain (principal); K76.89 Other specified diseases of liver; R07.89 Other chest pain; I51.7 Cardiomegaly
CPT/HCPCS: 71046; 76700

== ENCOUNTER 2019-01-11 01:53 | Outpatient (CLI) | payer MEDICARE, SELFPAY ==
[2019-01-11] MEDS: Normal Saline Flush 10 ML SYR IVP (11:11)
[2019-01-11] MEDS: Gadoterate meglumine 20 ML VIAL 17 ML IVP (11:12)
--- NOTE | 2019-01-11 11:33 | DI.MRI_ITS ---
SYMPTOM/DIAGNOSIS: ABNL LFT. R94.5, ABNL RUQ PAIN, R10.11, F/U ABNL CT, F93.5 LIVER MRI: Pre and post contrast examination was performed. Comparison is CT scan from 01/03/19. In the liver on the apposed phase imaging, there is an ill defined area of decreased signal in the posterior segment of the right lobe of the liver corresponding to the area seen on the CT scan from 01/03/19. No discrete mass is appreciated. Following contrast administration, no enhancing lesion is seen. The normal hepatic vasculature appears to course through this area. The finding is most consistent with an area of fatty infiltration. No hepatic mass is seen. No enhancing lesions are appreciated. The gallbladder is negative. There is no biliary ductal dilatation. IMPRESSION: 1. No evidence of a hepatic mass or enhancing lesion. 2. The area of decreased attenuation on the CT scan from 01/03/19 appears to correspond to an area of fatty infiltration of the liver.
== END 2019-01-11 02:13 ==
PROVIDERS: PCP Nurse Practitioner Family; Visit Provider Internal Medicine
DX: R10.11 Right upper quadrant pain (principal); R94.5 Abnormal results of liver function studies; K76.0 Fatty (change of) liver, not elsewhere classified
CPT/HCPCS: 74183

== ENCOUNTER 2019-01-23 14:21 | Emergency (ER) | payer MEDICARE, SELFPAY ==
[2019-01-23] VITALS (17 sets, daily range): BP systolic 140–146; BP diastolic 47–65; PULSE 59–83; RESP 9–27; TEMP 36.1; O2SAT 91–98
--- NOTE | 2019-01-23 14:54 | ED.GENADUL_ITS ---
Discharge Plan Disposition Patient Disposition: HOME Condition: Good Discharge Details Chief Complaint: SOB Clinical Impression: CHF exacerbation, Chronic RUQ pain Primary Care Provider: Trice Gil ED Provider: Rah Walton Home Meds and New Rx's Prescriptions: Continued nicotine [Nicoderm CQ] 14 mg/24 hr patch 24 hour 1 patch TD DAILY RF: 0 lamotrigine [Lamictal] 25 mg tablet 25 mg PO DAILY RF: 0 magnesium L-lactate 84 mg tablet extended release 84 mg PO DAILY RF: 0 aspirin [Adult Low Dose Aspirin] 81 MG tablet,delayed release (DR/EC) 81 mg PO DAILY Qty: 30 RF: 6 lisinopril [Prinivil] 10 MG tablet 10 mg PO DAILY Qty: 90 RF: 4 lamotrigine [Lamictal] 100 MG tablet 1 tab PO BID RF: 0 acetaminophen-codeine [Tylenol-Codeine #3] 1 EACH tablet 1 tab PO Q6H PRN (Reason: Pain) RF: 0 nitroglycerin [Nitrostat] 0.4 MG tablet, sublingual 0.4 mg Sublingual Q5 MIN PRN X3 PRN (Reason: Chest Pain) Qty: 15 RF: 0 rosuvastatin [Crestor] 40 MG tablet 40 mg PO QPM RF: 0 multivitamin [Daily Multi-Vitamin] 1 EACH tablet 1 tab DAILY RF: 0 vitamin B complex [B-Complex] 1 EACH tablet See Rx Instructions .ROUTE .COMPLEX RF: 0 isosorbide mononitrate 30 MG tablet extended release 24 hr 30 mg PO DAILY Qty: 30 RF: 0 cyclobenzaprine 10 mg Tablet 10 mg PO HS PRNRF: 0 Lantus U-100 Insulin 100 unit/mL Solution 50 unit subcut DAILY RF: 0 alprazolam 0.5 mg Tablet 0.5 mg PO PRN PRNRF: 0 citalopram 20 mg Tablet 20 mg PO DAILY RF: 0 esomeprazole magnesium [Nexium] 20 mg Capsule,Delayed Release(Dr/Ec) 40 mg PO BID RF: 0 metoprolol succinate 50 mg Tablet Extended Release 24 Hr 50 mg DAILY RF: 0 Narcan 4 mg/actuation [place],Non-Aerosol 4 mg PRN PRNRF: 0 furosemide [Lasix] 40 mg tablet 40 mg PO DAILY Qty: 30 RF: 0 nystatin 100,000 unit/gram cream 100,000 unit topical BID PRNRF: 0 hydrocodone-acetaminophen 5-325 mg Tablet 1 tab PO PRN PRNRF: 0 Discharge Instructions Instructions: Heart Failure (ED) Additional Instructions: You are in a mild acute exacerbation of congestive heart failure. Your oxygen remains stable. The right upper quadrant pain appears unchanged. At this time you are stable to go home, however it is very important that you double your Lasix dose for the next 2 to 3 days. Monitor your weight closely. Please follow-up with your primary care provider in the next 24 to 48 hours. Please continue with your scheduled ultrasound of your heart on Wednesday. If you notice any worsening of your symptoms, or any new symptoms such as vomiting, diarrhea, fever, chills, shortness of breath, chest pain, numbness, weakness, or fainting , please return immediately to the emergency department for reevaluation. Please follow up with your primary care provider as soon as possible for reassessment and reevaluation. As always, it was a pleasure participating in your medical care today. Referrals: Trice Gil [Primary Care Provider] - Discharge Data Discharge Date/Time-TO BE ENTERED AT DEPARTURE: 01/23/19 19:21 Medical Decision Making This is a 63-year-old female with a history of diabetes, GERD, hypertension, hyperlipidemia, fibromyalgia, coronary artery disease, ischemic cardiomyopathy, CABG in 2016 and 2 cardiac stents, with recent evaluation for right upper quadrant abdominal pain roughly 2-3 with with the benign work-up at that time who presents today for evaluation of recent weight gain. Patient admits to a recent 7 pound weight gain over the last few days. She has a history of fluid overload and takes 40 mg of Lasix daily. She has increased her Lasix in the last 24 hours but this is not resolved her symptoms. Symptoms are made worse when she lies down flat at night. She does feel mildly short of breath, worse in these positions. She denies any exertional chest pain, any arm neck or shoulder pain, any tightness in her chest, any bandlike sensation in her chest. She also does admit to a pleuritic right upper quadrant abdominal/chest pain which is been present for the last 2.5 months. This is completely unchanged. On her last visit to 3 weeks ago she has been running CTA of the chest, relatively unremarkable CT of the abdomen and pelvis however she was scheduled for outpatient ultrasound of the gallbladder after that visit, which was subsequently changed to an outpatient MRI of the gallbladder which was unremarkable. She did have a stable echocardiogram this past November, and is scheduled to have a new one this Wednesday in 5 days. Physical exam demonstrates minimal plaque on the left lower lung field, no pitting edema of the lower extremity. Patient's clinical history of 7 pound weight gain in the last 24 to 48 hours, as well as her specific statement that this feels similar to previous CHF exacerbations and consistent any of her symptoms of DE, and I am chiefly concern for acute CHF exacerbation. Of note the patient's right upper quadrant chest and abdominal pain is unchanged since her last visit when she had her CTA/PE study of her chest, as well as unchanged from when she had her benign MRI of her gallbladder. We will give Lasix, perform laboratory work-up, treat the patient's pain with morphine and the Lidoderm patch, evaluate for unlikely atypical ACS, and reassess. 9 PM Patient's laboratory work-up is returned, no white count, hemoglobin is slightly low compared to normal at 9.9 however the patient denies any hematochezia, melena, hematemesis. Platelets are stable. Electrolytes are normal, function is normal. AST and ALT are stable, alkaline phosphatase is elevated at 544, however in the setting of a benign and unremarkable MRI of the gallbladder and liver. Initial troponin is less than 0.05, proBNP is notably elevated greater than 4000. This is certainly more than she has been in the past. Chest x-ray is negative for any acute process, there is some mild evidence of cephalization. Ambulatory pulse ox was performed, patient walked around through the ED, [facility] and had no evidence or episode of hypoxemia. No severe shortness of breath on reassessment. Patient was given 40 mg of Lasix here in the ED. She urinated multiple times and did well. This time she feels well and stable. She does have a follow-up ultrasound and visit with her cardiothoracic surgeon in the next 4 days. With the notable work-up that she is received recently including negative CT angiogram of the chest, negative and unremarkable MRI of the gallbladder and liver, I do not feel that any other further emergent imaging is indicated at this time especially in conjunction with her absence of change in her right upper quadrant/chest pain. I did discuss with the patient potential observation overnight, additional CT imaging, and discharge. Patient would like to hold off on additional CT scans at this time, she does feel very comfortable with going home. She does not feel overly short of breath at all at this point. I did discuss the absolute importance of close follow-up with her PCP in the next 24 to 48 hours and she understands. I did discuss outpatient ultrasonography/echo of the heart, the patient would like to maintain her follow-up appointment date at [facility] this Wednesday. At this time with no signs of significant or severe hypoxemia, patient's pain notably improved with Lidoderm patch, and signs and symptoms clinically consistent with mild congestive heart failure exacerbation notably improved with Lasix I feel she can be safely discharged home with close follow-up in the next 24 to 48 hours. Will recommend that the patient doubles up on her Lasix dose for the next 48 hours, we discussed red flags for which to return. I have extensively reviewed the treatment plan and discharge instructions with the patient. I have addressed all patient concerns at this time. The patient was made aware of what symptoms to monitor for that would warrant a return to the emergency department. Discussed the plan with the patient, they demonstrate verbal understanding and agreement with our assessment and plan at this time. EKG 14: 35 Rate 71, sinus rhythm, intervals normal, no significant ST elevations or depressions, old questionable Q waves noted in 3 and aVF, no evidence of STEMI, unchanged from prior EKG on 01/03/2019 EKG 17: 39 Rate 67, intervals normal, sinus rhythm, no significant ST elevation or depression, questionable Q waves in lead III and aVF, no evidence of STEMI, unchanged from prior EKG earlier today. Exam(s) a RAD:XR portable chest AP SYMPTOMS/DIAGNOSIS: SHORTNESS OF BREATH, COUGH, RIB PAIN PORTABLE AP CHEST: There are multiple sternal sutures and mediastinal vascular clips. Cardiac size is at the upper limits of normal. The lungs appear generally clear. CONCLUSION: Borderline cardiomegaly, no focal intrapulmonary abnormality. Ordered By: Rah Walton DO CC: STUDY CONCLUSIONS* Impressions: Dilated cardiomyopathy, with elevated left-sided pressure, worse from the study of December 2017. Severe mitral regurgitation, unchanged from the study of December 2017. Summary: 1. Left ventricle: The cavity size was moderately dilated. Wall thickness was normal. Systolic function was moderately reduced. The estimated ejection fraction was 35-40%. Diffuse hypokinesis with regional variations. Akinesis of the mid-apicalinferoseptal myocardium. Akinesis of the apicalinferior myocardium. Dyskinesis of the basalinferior myocardium. Severe hypokinesis of the basalinferolateral myocardium. Doppler parameters are consistent with high ventricular filling pressure. 2. Aortic valve: There was moderate regurgitation. 3. Mitral valve: Mild thickening. No echocardiographic evidence for prolapse. There was severe regurgitation. 4. Left atrium: The atrium was mildly dilated. 5. Right ventricle: The cavity size was normal. Wall thickness was normal. Systolic function was normal. 6. Pulmonary arteries: Pulmonary systolic pressure was increased, in the range of 50mm Hg to 55mm Hg. HPI General Date/Time Provider Initiated Documentation: 01/23/19 14:29 . HPI Narrative: This is a 63-year-old female with a history of diabetes, GERD, hypertension, hyperlipidemia, fibromyalgia, coronary artery disease, ischemic cardiomyopathy, CABG in 2016 and 2 cardiac stents, with recent evaluation for right upper quadrant abdominal pain roughly 2-3 with with the benign work-up at that time who presents today for evaluation of recent weight gain. Patient admits to a recent 7 pound weight gain over the last few days. She has a history of fluid overload and takes 40 mg of Lasix daily. She has increased her Lasix in the last 24 hours but this is not resolved her symptoms. Symptoms are made worse when she lies down flat at night. She does feel mildly short of breath, worse in these positions. She denies any exertional chest pain, any arm neck or shoulder pain, any tightness in her chest, any bandlike sensation in her chest. She also does admit to a pleuritic right upper quadrant abdominal/chest pain which is been present for the last 2.5 months. This is completely unchanged. On her last visit to 3 weeks ago she has been running CTA of the chest, relatively unremarkable CT of the abdomen and pelvis however she was scheduled for outpatient ultrasound of the gallbladder after that visit, which was subsequently changed to an outpatient MRI of the gallbladder which was unremarkable. She did have a stable echocardiogram this past November, and is scheduled to have a new one this Wednesday in 5 days. Patient denies any vomiting, diarrhea, fever, chills, headache, neck pain. She does admit to some occasionally salty meals, denies any other acute changes in diet. She states that this current pain and symptoms feel similar to previous CHF exacerbations that she has had, and opposite of her previous myocardial infarction. Patient denies any other complaints at this time. Related Data Home Medications Medication Instructions Recorded Confirmed lamotrigine [Lamictal] 1 tab PO BID 04/08/14 01/23/19 acetaminophen-codeine 1 tab PO Q6H PRN 12/09/14 01/23/19 [Tylenol-Codeine #3] nitroglycerin [Nitrostat] 0.4 mg SUBLINGUAL Q5 MIN PRN X3 07/01/15 01/23/19 PRN #15 tab aspirin [Adult Low Dose Aspirin] 81 mg PO DAILY #30 tab-cap 05/29/16 01/23/19 lisinopril [Prinivil] 10 mg PO DAILY #90 tab-cap 07/24/16 01/23/19 rosuvastatin [Crestor] 40 mg PO QPM 01/03/18 01/23/19 isosorbide mononitrate 30 mg PO DAILY #30 tabcr 01/04/18 01/23/19 multivitamin [Daily Multi-Vitamin] 1 tab DAILY 01/04/18 01/23/19 vitamin B complex [B-Complex] See Rx Instructions .ROUTE .COMPLEX 01/04/18 01/23/19 Lantus U-100 Insulin 50 unit SUBCUT DAILY 11/05/18 01/23/19 alprazolam 0.5 mg PO PRN PRN 11/05/18 01/23/19 citalopram 20 mg PO DAILY 11/05/18 01/23/19 cyclobenzaprine 10 mg PO HS PRN 11/05/18 01/23/19 esomeprazole magnesium [Nexium] 40 mg PO BID 11/05/18 01/23/19 Narcan 4 mg PRN PRN 11/21/18 01/23/19 furosemide [Lasix] 40 mg PO DAILY #30 tab 11/21/18 01/23/19 metoprolol succinate 50 mg DAILY 11/21/18 01/23/19 lamotrigine 25 mg tablet 25 mg PO DAILY tab 12/23/18 01/23/19 magnesium L-lactate 84 mg 84 mg PO DAILY 12/23/18 01/23/19 tablet,extended release nicotine 14 mg/24 hr daily 1 patch TD DAILY 12/23/18 01/23/19 transdermal patch nystatin 100,000 unit/gram topical 100,000 unit TOPICAL BID PRN 12/23/18 01/23/19 cream hydrocodone-acetaminophen 1 tab PO PRN PRN 01/23/19 01/23/19 Previous Rx's Medication Instructions Recorded nitroglycerin [Nitrostat] 0.4 mg SUBLINGUAL Q5 MIN PRN X3 07/01/15 PRN #15 tab isosorbide mononitrate 30 mg PO DAILY #30 tabcr 01/04/18 furosemide [Lasix] 40 mg PO DAILY #30 tab 11/21/18 Allergies Allergy/AdvReac Type Severity Reaction Status Date / Time ibuprofen AdvReac Severe severe Unverified 01/23/19 14:48 vomiting General Stated Complaint: SOB CHRIS: 3 Review of Systems Review of Systems All systems reviewed & are unremarkable except as noted in HPI and below PFSH Social History (Updated 12/23/18 @ 12:35 by Marbella Rivera RN) Smoking/Tobacco Use Status: Current every day Tobacco Type: cigarettes Quit status: considering quitting Drug use: Never Substance use type: does not use Do you feel safe at home: Yes Do you feel safe in your relationship?: Yes History History Para 4 Hx # Term Pregnancies Multiple births Hx # Pregnancies Ectopic pregnancies AB induced Hx Number of Living Children AB spontaneous Exam Narrative Exam Narrative: 1.Const: Well-nourished, Well-developed, appearing stated age 2.Eyes: PERRL, no conjunctival injection, and symmetrical lids. 3.ENT: Atraumatic external nose and ears. Moist MM. Neck: Symmetric, trachea midline, No thyromegaly. 4.CVS: +S1/S2, No murmurs or gallops. Peripheral pulses 2+ and equal in all extremities. Brisk capillary refill in all extremities. 5.RESP: Unlabored respiratory effort. Clear to auscultation, no wheezes or rhonchi. Minimal crackle in the left lower lung field. 6.GI: Soft, Nondistended, No hepatosplenomegaly. No guarding or rebound. Mild right upper quadrant tenderness, consistent with previous exams on previous visit. Negative Velasco sign. No abdominal tenderness throughout the rest of the abdomen. 7.MSK: Normocephalic/Atraumatic, Extremities w/o deformity or ttp No cyanosis or clubbing, Normal movement of all extremities, no significant pitting edema of the lower extremities. 8.Skin: Warm, Dry. No rashes or lesions. 9.Neuro: corn husker II-XII grossly intact. Sensation grossly intact, no focal neurologic deficits. 10.Psych: (AAO) x3. Appropriate mood and affect Course Vital Signs Temperature 36.1 C L 01/23/19 14:28 Pulse 70 01/23/19 14:28 Respiratory Rate 16 01/23/19 14:28 Blood Pressure 142/47 H 01/23/19 14:28 Pulse Oximetry 97 01/23/19 14:28 Temperature 36.1 C L 01/23/19 14:28 Temperature Source Temporal Artery Scan 01/23/19 14:28 Pulse 70 01/23/19 14:28 Respiratory Rate 16 01/23/19 14:28 Respiratory Effort Non-Labored 01/23/19 14:45 Blood Pressure 142/47 H 01/23/19 14:28 Blood Pressure Position Supine 01/23/19 14:28 Pulse Oximetry 97 01/23/19 14:28 Oxygen Delivery Method Room Air 01/23/19 14:28 Oxygen Flow Rate 0 01/23/19 14:28 Pain Level 9 01/23/19 14:28 Comment 01/23/19 14:28
[2019-01-23 15:02] LABS: Abs Immature Grans 0.05 k/cumm (0.0-0.09); Absolute Basophil Count 0.03 k/cumm (0.0-0.2); Absolute Eosinophil Count 0.21 k/cumm (0.0-0.7); Absolute Lymphocyte Count 2.08 k/cumm (1.2-3.4); Absolute Monocyte Count 1.09 k/cumm (0.11-0.7); Absolute Neutrophil Count 6.52 k/cumm (1.2-6.7); Basophils % 0.3; Eosinophils % 2.1; HCT 30.3 % (36.0-46.0); HGB 9.9 g/dL (12.0-15.5); Immature Grans % 0.5; Lymphocytes % 20.8; Mean Corp. HGB Concentration 32.7 g/dL (32.0-36.0); Mean Corpuscular Hemoglobin 29.9 pg (27.0-33.0); Mean Corpuscular Volume 91.5 fL (80-95); Mean Platelet Volume 10.4 fL (8.0-11.0); Monocytes % 10.9; Neutrophils % 65.4; Platelet Count 428 x1000/uL (130-400); RBC 3.31 m/cumm (4.00-5.20); RBC Distribution Width 15.2 % (11.7-14.6); White Blood Cell Count 9.98 k/cumm (4.4-10.8)
[2019-01-23 15:15] LABS: Anisocytosis 1+; Diff Comment RBC Morph Reviewed; Polychromasia Present
[2019-01-23] MEDS: MORPHine 10 MG/ML VIAL 4 MG IVP (15:31)
[2019-01-23 15:41] LABS: ALT 67 U/L (14-59); AST 66 U/L (15-37); Albumin 2.3 g/dL (3.4-5.0); Alkaline Phosphatase 554 U/L (46-116); Anion Gap 9.3 mmol/L (3-11); BUN 18 mg/dL (7-18); Bilirubin, Total 0.9 mg/dL (0.2-1.0); CO2 24.7 mmol/L (21.0-32.0); CREATININE 0.76 mg/dL (0.55-1.02); Calcium 8.8 mg/dL (8.5-10.1); Chloride 102 mmol/L (98-107); Glucose 240 mg/dL (70-100); Potassium 4.8 mmol/L (3.5-5.1); Sodium 136 mmol/L (136-145); Total Protein 7.6 g/dL (6.4-8.2)
[2019-01-23 15:44] LABS: NT-proBNP 4251 pg/mL
[2019-01-23 15:47] LABS: Troponin I < 0.05 ng/mL (0.00-0.06)
[2019-01-23] MEDS: Furosemide 40 MG/4 ML VIAL IVP (16:06)
[2019-01-23] MEDS: Lidocaine 5% Patch 1 PATCH TP (17:32)
--- NOTE | 2019-01-23 17:52 | NUR.NOTE ---
FBS 122Nursing Note:
[2019-01-23 18:21] LABS: Troponin I < 0.05 ng/mL (0.00-0.06)
== END 2019-01-23 19:21 | disposition home or self-care (01) ==
PROVIDERS: Emergency Provider Student in an Organized Health Care Education/Training Program; PCP Nurse Practitioner Family
DX: R10.11 Right upper quadrant pain (principal); G89.29 Other chronic pain; I50.9 Heart failure, unspecified; I11.0 Hypertensive heart disease with heart failure; E11.9 Type 2 diabetes mellitus without complications; Z79.4 Long term (current) use of insulin; R79.89 Other specified abnormal findings of blood chemistry; I25.5 Ischemic cardiomyopathy; F17.210 Nicotine dependence, cigarettes, uncomplicated
CPT/HCPCS: 36415; 80053; 86900; 86901; 93005; 96374; 96375; 99285; 71045; 83880; 84484; 85025; 93010; J1940

== ENCOUNTER 2019-02-23 16:52 | Outpatient (RCR) | payer MEDICARE, SELFPAY | END 2019-03-16 23:59 | disposition home or self-care (01) | LOC: CR 16:52 | PROVIDERS: PCP Nurse Practitioner Family; Visit Provider Family Medicine | DX: Z51.89 Encounter for other specified aftercare (principal) ==

== ENCOUNTER 2019-03-02 07:03 | Outpatient (RCR) | payer MEDICARE, SELFPAY | END 2019-03-16 23:59 | disposition home or self-care (01) | LOC: CR 07:03 | PROVIDERS: PCP Nurse Practitioner Family; Visit Provider Family Medicine | DX: I25.10 Atherosclerotic heart disease of native coronary artery without angina pectoris (principal); Z95.5 Presence of coronary angioplasty implant and graft; Z51.89 Encounter for other specified aftercare ==

== ENCOUNTER 2019-03-16 09:14 | Outpatient (REF) | payer MEDICARE, SELFPAY ==
[2019-03-16 13:59] LABS: HCT 37.9 % (36.0-46.0); HGB 12.1 g/dL (12.0-15.5); Mean Corp. HGB Concentration 31.9 g/dL (32.0-36.0); Mean Corpuscular Hemoglobin 28.9 pg (27.0-33.0); Mean Corpuscular Volume 90.5 fL (80-95); Platelet Count 380 x1000/uL (130-400); RBC 4.19 m/cumm (4.00-5.20); RBC Distribution Width 14.9 % (11.7-14.6); White Blood Cell Count 9.38 k/cumm (4.4-10.8)
[2019-03-16 14:36] LABS: ALT 27 U/L (14-59); AST 23 U/L (15-37); Albumin 3.3 g/dL (3.4-5.0); Alkaline Phosphatase 120 U/L (46-116); Anion Gap 5.9 mmol/L (3-11); BUN 17 mg/dL (7-18); Bilirubin, Total 0.3 mg/dL (0.2-1.0); CO2 31.1 mmol/L (21.0-32.0); CREATININE 0.83 mg/dL (0.55-1.02); Calcium 9.4 mg/dL (8.5-10.1); Chloride 100 mmol/L (98-107); Glucose 189 mg/dL (70-100); Potassium 5.2 mmol/L (3.5-5.1); Sodium 137 mmol/L (136-145); Total Protein 7.8 g/dL (6.4-8.2)
[2019-03-17 13:25] LABS: IgA 422 mg/dL (85-499); Interpretation SEE COMMENTS; Tissue Transglutaminase IgA 1.4 U/mL (<4.0)
[2019-03-17 13:54] LABS: ANA Interpretation Positive (NEGAT); ANA Titer Pattern 1:320 Speckled
[2019-03-17 21:52] LABS: Mitochondrial Ab, M2 <0.1 U
[2019-03-21 12:48] LABS: dsDNA Ab, IgG <12.3 IU/mL (<30)
== END 2019-03-16 09:34 ==
LOC: NCHCN 09:14
PROVIDERS: PCP Nurse Practitioner Family; Visit Provider Internal Medicine
DX: K21.9 Gastro-esophageal reflux disease without esophagitis (principal); R63.4 Abnormal weight loss; R94.5 Abnormal results of liver function studies; R79.89 Other specified abnormal findings of blood chemistry
CPT/HCPCS: 36415; 80053; 82784; 83516; 85027; 86038; 86225

== ENCOUNTER 2019-03-17 15:06 | Outpatient (REF) | payer MEDICARE, SELFPAY ==
[2019-03-21 14:00] LABS: Helicobacter pylori Ag, Feces Negative (NEGAT)
== END 2019-03-17 15:26 ==
LOC: NCHCN 15:06
PROVIDERS: PCP Nurse Practitioner Family; Visit Provider Internal Medicine
DX: K21.9 Gastro-esophageal reflux disease without esophagitis (principal); R63.4 Abnormal weight loss; R94.5 Abnormal results of liver function studies
CPT/HCPCS: 87338

== ENCOUNTER 2019-03-31 13:47 | Outpatient (RCR) | payer MEDICARE, SELFPAY | END 2019-04-15 23:59 | disposition home or self-care (01) | LOC: CR 13:47 | PROVIDERS: PCP Nurse Practitioner Family; Visit Provider Family Medicine | DX: Z51.89 Encounter for other specified aftercare (principal); I25.10 Atherosclerotic heart disease of native coronary artery without angina pectoris; Z95.5 Presence of coronary angioplasty implant and graft | CPT/HCPCS: S9472 ==

== ENCOUNTER 2019-04-04 10:03 | Outpatient (REF) | payer MEDICARE, SELFPAY ==
[2019-04-05 11:35] LABS: Campylobacter PCR Negative (Negative); Salmonella PCR Negative (Negative); Shiga Toxin PCR Negative (Negative); Shigella/Enteroinvasive Ecoli Negative (Negative)
== END 2019-04-04 10:23 ==
LOC: NCHCN 10:03
PROVIDERS: PCP Nurse Practitioner Family; Visit Provider Internal Medicine
DX: R19.7 Diarrhea, unspecified (principal)
CPT/HCPCS: 87329; 87505; 82272; 83630

== ENCOUNTER → 2019-04-07 11:30 | Outpatient (BNVA) | payer MEDICARE, SELFPAY | PROVIDERS: PCP Nurse Practitioner Family; Referring Provider Nurse Practitioner Family; Visit Provider Internal Medicine Cardiovascular Disease | DX: I25.10 Atherosclerotic heart disease of native coronary artery without angina pectoris (principal); I50.9 Heart failure, unspecified; I34.0 Nonrheumatic mitral (valve) insufficiency; E11.9 Type 2 diabetes mellitus without complications | CPT/HCPCS: 99204; 99215 ==

== ENCOUNTER 2019-04-19 10:00 | Outpatient (RCR) | payer MEDICARE, SELFPAY | END 2019-05-16 23:59 | disposition home or self-care (01) | LOC: CR 10:00 | PROVIDERS: PCP Nurse Practitioner Family; Visit Provider Family Medicine | DX: Z51.89 Encounter for other specified aftercare (principal); Z95.5 Presence of coronary angioplasty implant and graft | CPT/HCPCS: S9472 ==

== ENCOUNTER 2019-05-23 13:54 | Outpatient (REF) | payer MEDICARE, SELFPAY ==
[2019-05-23 22:13] LABS: Anion Gap 11.1 mmol/L (3-11); BUN 14 mg/dL (7-18); CO2 26.9 mmol/L (21.0-32.0); CREATININE 0.72 mg/dL (0.55-1.02); Calcium 9.4 mg/dL (8.5-10.1); Chloride 99 mmol/L (98-107); Glucose 271 mg/dL (74-106); Magnesium 1.9 mg/dL (1.8-2.4); Potassium 4.2 mmol/L (3.5-5.1); Sodium 137 mmol/L (136-145)
== END 2019-05-23 14:14 ==
LOC: NCHCN 13:54
PROVIDERS: PCP Nurse Practitioner Family; Visit Provider Internal Medicine
DX: E11.9 Type 2 diabetes mellitus without complications (principal); I10 Essential (primary) hypertension; F17.209 Nicotine dependence, unspecified, with unspecified nicotine-induced disorders; I50.22 Chronic systolic (congestive) heart failure; I34.0 Nonrheumatic mitral (valve) insufficiency
CPT/HCPCS: 80048; 83036; 83735

== ENCOUNTER 2019-09-13 03:42 | Outpatient (CLI) | payer MEDICARE, SELFPAY ==
--- NOTE | 2019-09-13 | DI.RAD_ITS ---
EXAM: XR CHEST 2V PA AND LATERAL CLINICAL HISTORY: DYSPNEA, R06.00 TECHNIQUE: 2D digital imaging was performed. COMPARISON: XR CHEST 2V PA LATERAL from 01/05/2019 XR PORTABLE CHEST AP from 01/23/2019 FINDINGS: MEDIASTINUM: Normal. Vascular clips are seen in the mediastinum. HEART: Normal. There is a new 1 cm metallic density in the region of the mitral valve. Please correl ate with patient's recent procedural history. PULMONARY VASCULATURE: Normal. LUNGS: Clear. PLEURAL SPACE: No pleural effusion or pneumothorax. BONE:Normal. OTHER FINDINGS:Normal. IMPRESSION: No evidence of congestive heart failure or pneumonia. DATA REPOSITORY: RADIATION DOSE DELIVERED:
[2019-09-13 13:18] LABS: Abs Immature Grans 0.03 k/cumm (0.0-0.09); Absolute Basophil Count 0.03 k/cumm (0.0-0.2); Absolute Lymphocyte Count 3.03 k/cumm (1.2-3.4); Absolute Monocyte Count 1.01 k/cumm (0.11-0.7); Absolute Neutrophil Count 4.68 k/cumm (1.2-6.7); Basophils % 0.3; Eosinophils % 2.2; HCT 40.8 % (36.0-46.0); HGB 13.6 g/dL (12.0-15.5); Immature Grans % 0.3 %; Lymphocytes % 33.7; Mean Corp. HGB Concentration 33.3 g/dL (32.0-36.0); Mean Corpuscular Volume 92.9 fL (80-95); Mean Platelet Volume 9.3 fL (8.0-11.0); Monocytes % 11.2; Neutrophils % 52.3; Platelet Count 303 x1000/uL (130-400); RBC 4.39 m/cumm (4.00-5.20); RBC Distribution Width 13.2 % (11.7-14.6); White Blood Cell Count 8.98 k/cumm (4.4-10.8)
[2019-09-13 13:55] LABS: Hemoglobin A1C 7.2 % (3.8-5.6)
[2019-09-13 14:05] LABS: Iron 96 ug/dL (50-170); Total Iron Binding Capacity 329 ug/dL (250-450); Transferrin Sat 29 % (15-50)
[2019-09-13 14:07] LABS: D-Dimer 385 ng/mlFEU (<500)
[2019-09-13 14:14] LABS: ALT 35 U/L (14-59); AST 23 U/L (15-37); Albumin 3.8 g/dL (3.4-5.0); Alkaline Phosphatase 112 U/L (46-116); Anion Gap 5.9 mmol/L (3-11); BUN 21 mg/dL (7-18); Bilirubin, Total 0.3 mg/dL (0.2-1.0); CO2 29.1 mmol/L (21.0-32.0); CREATININE 0.83 mg/dL (0.55-1.02); Calcium 9.4 mg/dL (8.5-10.1); Chloride 100 mmol/L (98-107); Glucose 228 mg/dL (74-106); NT-proBNP 208 pg/mL (<300); Potassium 4.7 mmol/L (3.5-5.1); Sodium 135 mmol/L (136-145); Total Protein 7.7 g/dL (6.4-8.2)
== END 2019-09-13 04:02 ==
PROVIDERS: PCP Nurse Practitioner Family; Visit Provider Nurse Practitioner Family
DX: R06.09 Other forms of dyspnea (principal); E11.9 Type 2 diabetes mellitus without complications; R93.1 Abnormal findings on diagnostic imaging of heart and coronary circulation
CPT/HCPCS: 36415; 80053; 71046; 83036; 83540; 83550; 83880; 85025; 85379

== ENCOUNTER → 2019-10-06 09:32 | Outpatient (BNVA) | payer MEDICARE, SELFPAY | PROVIDERS: PCP Nurse Practitioner Family; Referring Provider Nurse Practitioner Family; Visit Provider Internal Medicine Cardiovascular Disease | DX: I25.5 Ischemic cardiomyopathy (principal); I50.9 Heart failure, unspecified; I34.0 Nonrheumatic mitral (valve) insufficiency; I11.0 Hypertensive heart disease with heart failure; E11.9 Type 2 diabetes mellitus without complications; Z79.4 Long term (current) use of insulin | CPT/HCPCS: 99214; 99443 ==

== ENCOUNTER 2020-07-11 01:54 | Outpatient (CLI) | payer MEDICARE, SELFPAY ==
--- NOTE | 2020-07-11 | DI.MAMMO_ITS ---
EXAM: MG MAMMO SCREENING CLINICAL HISTORY: SCREENING, Z12.39, FAMILY H/O BREAST CA. TECHNIQUE: Bilateral full field digital CC and MLO mammographic images were obtained with 3D tomosyn thesis and utilizing computer aided detection (CAD). COMPARISON: Prior mammograms dating back to 2010, the most recent being May 2018.. There is a s ignificant family history; her sister was diagnosed breast cancer before age 50. FINDINGS: In the right breast are stable benign-appearing nodules again noted. In the left breast there is a noncalcified well-defined 3 x 3 millimeter nodule which is located 6 ce ntimetres in from the nipple, slightly medial of center. Breast ultrasound is recommended. There ar e no malignant-appearing microcalcification groups in this region or elsewhere in either breast. Th ere is no significant architectural distortion nor skin thickening-retraction. IMPRESSION: 1. Stable benign-appearing right breast findings. 2. 3 millimeter left breast nodule. Breast ultrasound is recommended to determine if this is solid o r cystic. BI-RADS Category 0 - Assessment Incomplete: Need additional imaging evaluation Breast Density - Category B - Scattered areas of fibroglandular density Breast density Category C or D implies that the patient has dense breast tissue. Dense breast tissue can make it harder to find cancer on a mammogram. Dense breast tissue is also associated with an incr eased risk of breast cancer. This information about the result of the mammogram report was provided to the patient to raise their awareness. Use this report when you speak with the patient about their risks for breast cancer, which includes their family history. At that time, you may recommend additional screening tests (Ultrasoun d or MRI) as these tests may add significant information. A negative radiographic report should not delay biopsy if a dominant or clinically suspicious mass is present. Up to ten percent of cancers are not identified on mammography. A negative report may reinforce clinical impression. Adenosis and dense breasts may obscure an underlying neoplasm. False positive reports average 6 to 10%. Patient will receive a letter notifying them of these results.
== END 2020-07-11 01:55 ==
PROVIDERS: PCP Internal Medicine; Visit Provider Internal Medicine
DX: Z12.31 Encounter for screening mammogram for malignant neoplasm of breast (principal); R92.8 Other abnormal and inconclusive findings on diagnostic imaging of breast; Z80.3 Family history of malignant neoplasm of breast
CPT/HCPCS: 77063; 77067

== ENCOUNTER 2020-07-18 02:33 | Outpatient (CLI) | payer MEDICARE, SELFPAY ==
--- NOTE | 2020-07-18 | DI.US_ITS ---
EXAM: MG MAMMO SCREEN CALL BACK UNI and U/S breast LT limited CLINICAL HISTORY: F/U MAMMO, LT BREAST NODULE. TECHNIQUE: Craniocaudal and mediolateral oblique Full Field Digital Mammography views of the left br east with Computer Aided Diagnosis followed by Tomosynthesis and left breast ultrasound. COMPARISON: Priors available for comparison. FINDINGS: Mammography/Tomosynthesis: Masses/Architectural Distortion: The 3 mm well-circumscribed nodule in the medial left breast is agai n visualized on the additional views and unchanged. It has been present on prior examinations and roman s shown no significant change. Microcalcifictions: No suspicious pleomorphic-type are seen. Skin Thickening/Nipple Retraction: None. Left breast US:Sonographic evaluation of the upper inner and lower inner quadrants of the left breast was performed. Echotexture: Normal appearance of the glandular tissue. Shadowing: No suspicious foci. Cyst: None. Solid lesions: None seen. Ductal dilation: None. IMPRESSION: 1. No evidence of malignancy is noted. Stable left breast nodule. 2. Unless there is more urgent need, follow-up screening mammography is recommended, as per [employer] guidelines. 3. The findings were discussed with the patient on the date of the examination. BI-RADS Category 2 - Benign Findings Breast Density - Category B - Scattered areas of fibroglandular density Breast density Category C or D implies that the patient has dense breast tissue. Dense breast tissue can make it harder to find cancer on a mammogram. Dense breast tissue is also associated with an incr eased risk of breast cancer. This information about the result of the mammogram report was provided to the patient to raise their awareness. Use this report when you speak with the patient about their risks for breast cancer, which includes their family history. At that time, you may recommend additional screening tests (Ultrasoun d or MRI) as these tests may add significant information. A negative radiographic report should not delay biopsy if a dominant or clinically suspicious mass is present. Up to ten percent of cancers are not identified on mammography. A negative report may reinforce clinical impression. Adenosis and dense breasts may obscure an underlying neoplasm. False positive reports average 6 to 10%. Patient will receive a letter notifying them of these results.
== END 2020-07-18 02:53 ==
PROVIDERS: PCP Internal Medicine; Visit Provider Internal Medicine
DX: Z12.31 Encounter for screening mammogram for malignant neoplasm of breast (principal); R92.8 Other abnormal and inconclusive findings on diagnostic imaging of breast; N64.59 Other signs and symptoms in breast
CPT/HCPCS: 76642; 77063; 77067

== ENCOUNTER 2020-07-23 15:47 | Outpatient (REF) | payer MEDICARE, SELFPAY ==
[2020-07-23 21:46] LABS: MCH 30.8 pg (27.0-33.0); MCHC 33.3 % (32.0-36.0); MCV 92.4 fL (80-95); MPV 10.4 fL (8.0-11.0); Platelet Count 282 10^3/uL (130-400); RBC 4.22 10^6/uL (3.93-5.22); RDW 12.5 % (11.7-14.6); RDW-SD 42.5 fL; WBC 8.47 10^3/uL (4.4-10.8)
[2020-07-23 22:03] LABS: ALT 45 U/L (14-59); AST 42 U/L (15-37); Albumin 3.8 g/dL (3.4-5.0); Alkaline Phosphatase 90 U/L (46-116); Anion Gap 9.8 mmol/L (3-11); BUN 12 mg/dL (7-18); Bilirubin, Total 0.4 mg/dL (0.2-1.0); CO2 26.2 mmol/L (21.0-32.0); CREATININE 0.9 mg/dL (0.55-1.02); Calcium 9.4 mg/dL (8.5-10.1); Chloride 101 mmol/L (98-107); Glucose 222 mg/dL (74-106); Potassium 4.9 mmol/L (3.5-5.1); Sodium 137 mmol/L (136-145); TSH (W/Ref FT4) 2.13 uIU/mL (0.36-3.74); Total Protein 7.7 g/dL (6.4-8.2)
== END 2020-07-23 15:48 | disposition home or self-care (01) ==
LOC: NCHCN 15:47
PROVIDERS: PCP Internal Medicine; Visit Provider Family Medicine
DX: R53.83 Other fatigue (principal)
CPT/HCPCS: 80053; 85027; 84443

== ENCOUNTER 2020-08-14 01:51 | Outpatient (CLI) | payer MEDICARE, SELFPAY ==
--- NOTE | 2020-08-14 13:30 | DI.RAD_ITS ---
EXAM: XR FOOT RT COMPLETE CLINICAL HISTORY: RT TARSAL TUNNEL SYNDROME,G57.51,PLANTAR FASCITIS,M72.2. TECHNIQUE: 2D digital imaging was performed. COMPARISON: CR XR HEEL RT OS CALCIS from 08/14/2020 FINDINGS: There is no evidence of fracture or diastasis of the Lisfranc joint. No pes planus. A large inferio r calcaneal spur is noted. There is no calcification within the plantar fascia. There is dorsal shalini ar beaking noted. No obvious osseous tarsal coalition. IMPRESSION: DATA REPOSITORY: RADIATION DOSE DELIVERED:
--- NOTE | 2020-08-14 13:30 | DI.RAD_ITS ---
EXAM: XR HEEL RT OS CALCIS CLINICAL HISTORY: RT TARSAL TUNNEL SYNDROME,G57.51,RT PLANTAR FASCITIS,M72.2. TECHNIQUE: 2D digital imaging was performed. Two views including Laura axial view and a dedicated lateral view COMPARISON: None FINDINGS: Two dedicated views of the right calcaneus including a lateral view and a Laura axial view. There is no evidence of calcaneus fracture. A large inferior calcaneal spur is noted which measures 10 millimeters in length. There is no calcification in the adjacent plantar fascia. Some calcificat ion is noted along the dorsal aspect of the visualized Achilles tendon. Dorsal talar beaking is noted but there is no evidence of obvious osseous tarsal coalition. Calcaneo cuboid joint appears unremarkable as does the subtalar joint. On the axial view there is a small bon y density off the medial aspect of the calcaneus noted which measures approximately 5 x 3 millimeters . Possible bony excrescence. IMPRESSION: DATA REPOSITORY: RADIATION DOSE DELIVERED:
== END 2020-08-14 02:11 ==
PROVIDERS: PCP Internal Medicine; Visit Provider Internal Medicine
DX: G57.51 Tarsal tunnel syndrome, right lower limb (principal); M72.2 Plantar fascial fibromatosis; M77.31 Calcaneal spur, right foot
CPT/HCPCS: 73630; 73650

== ENCOUNTER 2020-09-18 15:22 | Outpatient (REF) | payer MEDICARE, SELFPAY ==
[2020-09-19 12:04] LABS: COVID-19 RT-PCR UVMMC Result Negative (Negative)
== END 2020-09-18 15:23 | disposition home or self-care (01) ==
LOC: NCHCN 15:22
PROVIDERS: PCP Internal Medicine; Visit Provider Internal Medicine
DX: Z20.822 Contact with and (suspected) exposure to COVID-19 (principal)
CPT/HCPCS: U0003; U0005

== ENCOUNTER 2020-09-23 10:07 | Observation (INO) | payer MEDICARE, SELFPAY ==
[2020-09-23] VITALS (67 sets, daily range): BP systolic 98–158; BP diastolic 39–110; PULSE 53–104; RESP 6–21; TEMP 35.9–36.8; O2SAT 90–100
--- NOTE | 2020-09-23 10:00 | RT.EKG_ITS ---
APPROVED REPORT Exam: Resting ECG Reason for Exam: chest pain Patient Location: E HR:61 bpm ECG Measurements Heart Rate 61 AXIS ID 184 P 43 QRSd 99 QRS -25 QT 441 T 88 QTc 446 Conclusion Sinus rhythm...normal P axis, V-rate 60- 99 Low voltage, extremity leads...all extremity leads <0.5mV Nonspecific T abnormalities, lateral leads...T <-0.10mV, I aVL V5 V6 sinus rhythm at 61, borderline left axis, Q waves leads III, aVF, V1, V2, T wave changes in lead I no t present on prior, no STEMI, nondiagnostic EKG
--- NOTE | 2020-09-23 10:42 | W.ED.GENAD ---
Discharge Plan Discharge Details Chief Complaint: Chest Pain Admit Date/Time: 09/23/20 14:25 Admit Provider: Maira Jeter Attending Provider: Maira Jeter Primary Care Provider: Con Gardner ED Provider: Stephanie Morris Medical Decision Making Yas Campos is a 65-year-old woman with a history of CABG 2016, mitral insufficiency, diabetes, hypertension, CHF, hyperlipidemia, bipolar who presented to the emergency department with 2 to 3 days of chest pressure and several days of progressive shortness of breath. On exam patient is well and nontoxic-appearing. Benign cardiopulmonary exam with normal breath sounds on auscultation. There is no peripheral edema, no posterior calf tenderness to palpation. Concern for ACS, CHF, Covid, pulmonary embolus, other. Exam/history at this time is not consistent with acute aortic pathology, sepsis, acute emergent intra-abdominal pathology. EKG shows T wave inversions lead leads I and aVL, not present in lead I on prior EKGs. Plan for screening labs, CXR, telemetry. Will monitor and reassess. Patient rates chest pain 1 out of 10 at this time. Labs reviewed, BNP elevated, troponin negative, D-dimer elevated, plan for CT chest. Normal mediastinum on chest x-ray, patient given 243 mg aspirin as she took 81 mg this morning. Discussed patient with hospitalist for admission, who requests [facility] be contacted as patient is high cardiac risk and stress test at [facility] not available for several days. Had some increase in chest pressure, still rates pain as 1 out of 10. Patient given sublingual nitroglycerin, chest pressure subsequently resolved. [facility] contacted, awaiting callback from cardiology. I discussed patient with cardiology team, who stated no beds available until tomorrow, they request that patient be kept at [facility] for tonight and they accept her for transfer tomorrow. Accepting physician is Dr. Caceres. Repeat troponin negative. Patient accepted for admission by Dr. Jeter. Clinical impression: Shortness of breath, chest pain Disposition: [facility] inpatient Medical Records Medical records reviewed: Yes I reviewed the patient's medical records. Imaging Data Radiologic Study: Attestation: I personally reviewed and interpreted this imaging study as follows: Radiologist's impression: EXAM: XR PORTABLE CHEST AP CLINICAL HISTORY: chest pain. TECHNIQUE: 2D digital imaging was performed. COMPARISON: CR XR CHEST 2V PA LATERAL from 09/13/2019 FINDINGS: Again noted are sternotomy wires and cardiomegaly. Previously described 1 cm metallic density in the region of the mitral valve is unchanged in position. There is a pulmonary venous hypertension pattern, not associated with Marty B lines nor pleural effusions. No airspace pulmonary edema. Chest leads in place. There is no mediastinal widening. IMPRESSION: Cardiomegaly. Sternotomy. Clip in the region of the mitral valve. Pulmonary venous hypertension pattern. EXAM: CT CHEST PE CTA CLINICAL HISTORY: chest pain. TECHNIQUE: Imaging Protocol: CT angiography of the chest was performed using pulmonary embolus protocol. Multi planar reconstructions were performed. CONTRAST MATERIAL: Intravenous: Omnipaque 350 Contrast volume: 80 cc COMPARISON: CT CT ABDOMEN PELVIS W from 01/03/2019 FINDINGS: CHEST: PULMONARY ARTERIES: There are no intraluminal filling defects to suggest acute pulmonary emboli.No shift of the interventricular septum. LUNGS: There are no infiltrates nor evidence of pulmonary infarction.. In the posterior aspect of the sub apical left upper lobe there is a 3 millimeter noncalcified pleural-based nodule (series 5/image 7). There are no other focal left lung findings. In the opposite-right lung there is a 4 millimeter noncalcified nodule in the anterior segment of the right upper lobe. No other significant focal right lung nodules. No significant focal findings in the trachea and mainstem bronchi. No bronchiectasis there are no pleural effusions on either side. MEDIASTINUM: There is no obvious hilar nor mediastinal adenopathy. CARDIAC: Heart size is upper normal. Sternotomy wires noted. There is no pericardial effusion.Caliber of the thoracic aorta is within normal limits. There is no significant shift of the interventricular septum. PARTIALLY VISUALIZED UPPERMOST ABDOMEN: No obvious findings OSSEOUS: No significant osseous lesions.. IMPRESSION: 1. No evidence of acute pulmonary emboli. No evidence of pulmonary infarction.No pleural effusions. 2. Mild pulmonary findings as described above. No pleural effusions. 3. Upper normal heart size. No shift of the interventricular septum evident. Lab Data Lab results reviewed: Yes I reviewed the patient's lab results. Labs: Laboratory Tests Range/Units 09/23/20 09/23/20 09/23/20 10:15 10:15 10:15 WBC (4.4-10.8) 10^3/uL RBC (3.93-5.22) 10^6/uL Hgb (11.2-15.7) g/dL Hct (36.0-46.0) % MCV (80-95) fL MCH (27.0-33.0) pg MCHC (32.0-36.0) % RDW (11.7-14.6) % Plt Count (130-400) 10^3/uL MPV (8.0-11.0) fL Immature Gran % Neutrophils % Lymphocytes % Monocytes % Eosinophils % Basophils % Nucleated RBC % % Absolute Neutrophils (1.2-6.7) 10^3/uL Absolute Lymphocytes (1.2-3.4) 10^3/uL Absolute Monocytes (0.1-0.8) 10^3/uL Absolute Eosinophils (0.0-0.7) 10^3/uL Absolute Basophils (0.0-0.2) 10^3/uL D-Dimer (<500) ng/mlFEU 1287 H Sodium (136-145) mmol/L 137 Potassium (3.5-5.1) mmol/L 4.3 Chloride (98-107) mmol/L 101 Carbon Dioxide (21.0-32.0) mmol/L 24.5 Anion Gap (3-11) mmol/L 11.5 H BUN (7-18) mg/dL 15 Creatinine (0.55-1.02) mg/dL 1.0 Estimated GFR/1.73 m2 (mL/min/1.73m2) 56.00 Glucose (74-106) mg/dL 338 H Calcium (8.5-10.1) mg/dL 9.2 Magnesium (1.8-2.4) mg/dL 1.9 Total Bilirubin (0.2-1.0) mg/dL 0.9 AST (15-37) U/L 27 ALT (14-59) U/L 33 Alkaline Phosphatase (46-116) U/L 101 Troponin I (<0.06) ng/mL < 0.05 NT-Pro-B Natriuret Pep (<300) pg/mL 1645 H Total Protein (6.4-8.2) g/dL 8.1 Albumin (3.4-5.0) g/dL 3.6 TSH (0.36-3.74) uIU/mL COVID-19 Source SARS-CoV-2 (PCR) (Negative) Range/Units 09/23/20 09/23/20 09/23/20 10:15 10:15 10:45 WBC (4.4-10.8) 10^3/uL 9.30 RBC (3.93-5.22) 10^6/uL 3.81 L Hgb (11.2-15.7) g/dL 11.8 Hct (36.0-46.0) % 36.4 MCV (80-95) fL 95.5 H MCH (27.0-33.0) pg 31.0 MCHC (32.0-36.0) % 32.4 RDW (11.7-14.6) % 13.9 Plt Count (130-400) 10^3/uL 264 MPV (8.0-11.0) fL 9.9 Immature Gran % 0.4 Neutrophils % 65.9 Lymphocytes % 20.5 Monocytes % 10.5 Eosinophils % 2.3 Basophils % 0.4 Nucleated RBC % % 0 Absolute Neutrophils (1.2-6.7) 10^3/uL 6.12 Absolute Lymphocytes (1.2-3.4) 10^3/uL 1.91 Absolute Monocytes (0.1-0.8) 10^3/uL 0.98 H Absolute Eosinophils (0.0-0.7) 10^3/uL 0.21 Absolute Basophils (0.0-0.2) 10^3/uL 0.04 D-Dimer (<500) ng/mlFEU Sodium (136-145) mmol/L Potassium (3.5-5.1) mmol/L Chloride (98-107) mmol/L Carbon Dioxide (21.0-32.0) mmol/L Anion Gap (3-11) mmol/L BUN (7-18) mg/dL Creatinine (0.55-1.02) mg/dL Estimated GFR/1.73 m2 (mL/min/1.73m2) Glucose (74-106) mg/dL Calcium (8.5-10.1) mg/dL Magnesium (1.8-2.4) mg/dL Total Bilirubin (0.2-1.0) mg/dL AST (15-37) U/L ALT (14-59) U/L Alkaline Phosphatase (46-116) U/L Troponin I (<0.06) ng/mL NT-Pro-B Natriuret Pep (<300) pg/mL Total Protein (6.4-8.2) g/dL Albumin (3.4-5.0) g/dL TSH (0.36-3.74) uIU/mL 1.93 COVID-19 Source Nasopharyx SARS-CoV-2 (PCR) (Negative) Negative Range/Units 09/23/20 13:40 WBC (4.4-10.8) 10^3/uL RBC (3.93-5.22) 10^6/uL Hgb (11.2-15.7) g/dL Hct (36.0-46.0) % MCV (80-95) fL MCH (27.0-33.0) pg MCHC (32.0-36.0) % RDW (11.7-14.6) % Plt Count (130-400) 10^3/uL MPV (8.0-11.0) fL Immature Gran % Neutrophils % Lymphocytes % Monocytes % Eosinophils % Basophils % Nucleated RBC % % Absolute Neutrophils (1.2-6.7) 10^3/uL Absolute Lymphocytes (1.2-3.4) 10^3/uL Absolute Monocytes (0.1-0.8) 10^3/uL Absolute Eosinophils (0.0-0.7) 10^3/uL Absolute Basophils (0.0-0.2) 10^3/uL D-Dimer (<500) ng/mlFEU Sodium (136-145) mmol/L Potassium (3.5-5.1) mmol/L Chloride (98-107) mmol/L Carbon Dioxide (21.0-32.0) mmol/L Anion Gap (3-11) mmol/L BUN (7-18) mg/dL Creatinine (0.55-1.02) mg/dL Estimated GFR/1.73 m2 (mL/min/1.73m2) Glucose (74-106) mg/dL Calcium (8.5-10.1) mg/dL Magnesium (1.8-2.4) mg/dL Total Bilirubin (0.2-1.0) mg/dL AST (15-37) U/L ALT (14-59) U/L Alkaline Phosphatase (46-116) U/L Troponin I (<0.06) ng/mL < 0.05 NT-Pro-B Natriuret Pep (<300) pg/mL Total Protein (6.4-8.2) g/dL Albumin (3.4-5.0) g/dL TSH (0.36-3.74) uIU/mL COVID-19 Source SARS-CoV-2 (PCR) (Negative) ECG Data Attestation: I personally reviewed and interpreted this ECG (s) as follows: Interpretation: EKG shows sinus rhythm at 61, borderline left axis, Q waves leads III, aVF, V1, V2, T wave changes in lead I not present on prior, no STEMI, nondiagnostic EKG HPI General Mode of arrival: ambulatory. Date/Time Provider Initiated Documentation: 09/23/20 10:07. Limitations to Documentation: no limitations. Information obtained by: patient, RN notes reviewed and old records reviewed. HPI Narrative: Yas Campos is a 65-year-old woman with a history of ischemic cardiomyopathy, CABG 2016, diabetes, hyperlipidemia, mitral insufficiency, bipolar presenting to the emergency department with shortness of breath and chest pressure. Patient reports that she has had a sensation of chest pressure that is continuous and unremitting, unchanged by exertion/eating/position for the past 2 to 3 days. Patient also reports that she has been gradually having worsening shortness of breath, and feels short of breath with minimal exertion. Patient reports that she has been sleeping with the head of the bed elevated for several years, but the past few nights has felt short of breath at night despite this. She reports no other pain, no lower extremity swelling (which she states she has never had in the past), no fever, no vomiting/diarrhea, no numbness/weakness, no cough. Has been eating and drinking as usual. Patient reports that for several month she has pronounced fatigue and daytime sleepiness, and states that it is not unusual for her to sleep 18 hours a day. Patient reports that she has discussed this with her PCP, Dr. Gardner. Patient reports that she was previously taking clopidogrel, which was DC'd by her legal operations manager in July. No other medication changes. Patient reports that she has not been vaccinated for Covid. Related Data Home Medications Medication Instructions Recorded Confirmed lamotrigine [Lamictal] 1 tab PO BID 04/08/14 09/23/20 acetaminophen-codeine 1 tab PO Q6H PRN 12/09/14 09/23/20 [Tylenol-Codeine #3] nitroglycerin [Nitrostat] 0.4 mg SUBLINGUAL Q5 MIN PRN X3 07/01/15 09/23/20 PRN #15 tab aspirin [Adult Low Dose Aspirin] 81 mg PO DAILY #30 tab-cap 05/29/16 09/23/20 lisinopril [Prinivil] 10 mg PO DAILY #90 tab-cap 07/24/16 09/23/20 rosuvastatin [Crestor] 40 mg PO QPM 01/03/18 09/23/20 isosorbide mononitrate 30 mg PO DAILY #30 tabcr 01/04/18 09/23/20 multivitamin [Daily Multi-Vitamin] 1 tab DAILY 01/04/18 09/23/20 vitamin B complex [B-Complex] 1 tab PO DAILY 01/04/18 09/23/20 alprazolam 0.5 mg PO PRN PRN 11/05/18 09/23/20 citalopram 20 mg PO DAILY 11/05/18 09/23/20 cyclobenzaprine 10 mg PO HS PRN 11/05/18 09/23/20 Narcan 4 mg PRN PRN 11/21/18 09/23/20 lamotrigine 25 mg tablet 25 mg PO DAILY tab 12/23/18 09/23/20 magnesium L-lactate 84 mg 84 mg PO DAILY 12/23/18 09/23/20 tablet,extended release nicotine 14 mg/24 hr daily 1 patch TD DAILY 12/23/18 09/23/20 transdermal patch clopidogrel 75 mg tablet 75 mg PO DAILY 04/07/19 10/06/19 pantoprazole 40 mg tablet,delayed 40 mg PO DAILY 04/07/19 09/23/20 release furosemide 40 mg tablet 40 mg PO BID tab 10/06/19 10/06/19 insulin glargine 100 unit/mL 55 unit SUBCUT DAILY ml 10/06/19 09/23/20 subcutaneous solution metoprolol succinate 50 mg 100 mg PO DAILY tab 10/06/19 09/23/20 tablet,extended release 24 hr cholecalciferol (vitamin D3) 1,000 unit PO DAILY 09/23/20 09/23/20 potassium chloride 10 meq PO BID 09/23/20 09/23/20 Previous Rx's Medication Instructions Recorded nitroglycerin [Nitrostat] 0.4 mg SUBLINGUAL Q5 MIN PRN X3 07/01/15 PRN #15 tab isosorbide mononitrate 30 mg PO DAILY #30 tabcr 01/04/18 Allergies Allergy/AdvReac Type Severity Reaction Status Date / Time ibuprofen AdvReac Severe severe Verified 09/23/20 10:19 vomiting General Stated Complaint: Chest Pain CHRIS: 2 Review of Systems Narrative: Constitutional: denies fevers Eyes: denies eye pain ENT: denies ear pain, dental pain, sore throat Cardiovascular: denies chest pain, edema Respiratory: denies SOB, cough GI: denies abdominal pain, vomiting, diarrhea : denies flank pain MSK: denies back pain, neck pain, arthralgias, myalgias Skin: denies rash Neuro: denies headaches, numbness, weakness PFS Medical History (Updated 09/23/20 @ 14:53 by Rola Ayala NP) CHF (congestive heart failure) Diabetes Fibromyalgia GERD (gastroesophageal reflux disease) Hypertension Ischemic cardiomyopathy Sleep apnea Surgical History Hx of CABG 2016 Social History Smoking/Tobacco Use Status: Current every day Tobacco Type: cigarettes Quit status: considering quitting Smoking risk assessment performed?: Yes Drug use: Never Substance use type: does not use What type of physical activity do you participate in: other Details: cardiac rehab Do you feel safe at home: Yes Do you feel safe in your relationship?: Yes History History Para 4 Hx # Term Pregnancies Multiple births Hx # Pregnancies Ectopic pregnancies AB induced Hx Number of Living Children AB spontaneous Exam Narrative Exam Narrative: Constitutional: well and [id number], pleasant, conversing normally HENT: head atraumatic/normocephalic/normal inspection, mucous membranes moist Eyes: conjunctiva normal, sclera normal, pupils 3mm b/l Neck: no stridor, normal ROM, trachea midline Chest: normal inspection Resp: normal work of breathing, LCTAB Cardio: normal rate, normal rhythm, no murmur appreciated GI: abdomen soft, non-tender, non-distended Back: normal inspection, no rash Skin: warm, dry, normal color, no rash Neuro: alert, not altered, grossly non-focal, normal tone Ext: no edema, no posterior calf tenderness to palpation Psych: normal mood, normal affect, normal behavior Course Vital Signs Vital signs: Vital Signs Temperature 36.4 C L 09/23/20 10:15 Pulse 60 09/23/20 10:15 Respiratory Rate 14 09/23/20 10:15 Blood Pressure 128/55 L 09/23/20 10:15 Pulse Oximetry 99 09/23/20 10:15 Temperature 36.4 C L 09/23/20 10:15 Temperature Source Skin 09/23/20 10:15 Pulse 60 09/23/20 10:15 Respiratory Rate 14 09/23/20 10:33 Respiratory Effort Short of Breath 09/23/20 10:33 Respiratory Depth Normal 09/23/20 10:33 Respiratory Pattern Normal 09/23/20 10:33 Blood Pressure 128/55 L 09/23/20 10:15 Blood Pressure Position Supine 09/23/20 10:15 Pulse Oximetry 99 09/23/20 10:15 Oxygen Delivery Method Room Air 09/23/20 10:15 Oxygen Flow Rate 0 09/23/20 10:15 Pain Level 6 09/23/20 10:33
[2020-09-23 10:46] LABS: Abs Immature Grans 0.04 10^3/uL (0.0-0.06); Absolute Basophil Count 0.04 10^3/uL (0.0-0.2); Absolute Eosinophil Count 0.21 10^3/uL (0.0-0.7); Absolute Lymphocyte Count 1.91 10^3/uL (1.2-3.4); Absolute Monocyte Count 0.98 10^3/uL (0.1-0.8); Absolute Neutrophil Count 6.12 10^3/uL (1.2-6.7); Basophils % 0.4; Eosinophils % 2.3; HCT 36.4 % (36.0-46.0); HGB 11.8 g/dL (11.2-15.7); Immature Grans % 0.4; Lymphocytes % 20.5; MCHC 32.4 % (32.0-36.0); MCV 95.5 fL (80-95); MPV 9.9 fL (8.0-11.0); Monocytes % 10.5; Neutrophils % 65.9; Nucleated RBC 0 %; Platelet Count 264 10^3/uL (130-400); RBC 3.81 10^6/uL (3.93-5.22); RDW 13.9 % (11.7-14.6)
[2020-09-23 11:12] LABS: Magnesium 1.9 mg/dL (1.8-2.4); NT-proBNP 1645 pg/mL (<300)
[2020-09-23 11:13] LABS: TSH (W/Ref FT4) 1.93 uIU/mL (0.36-3.74)
[2020-09-23 11:20] LABS: ALT 33 U/L (14-59); AST 27 U/L (15-37); Albumin 3.6 g/dL (3.4-5.0); Alkaline Phosphatase 101 U/L (46-116); Anion Gap 11.5 mmol/L (3-11); BUN 15 mg/dL (7-18); Bilirubin, Total 0.9 mg/dL (0.2-1.0); CO2 24.5 mmol/L (21.0-32.0); Calcium 9.2 mg/dL (8.5-10.1); Chloride 101 mmol/L (98-107); Glucose 338 mg/dL (74-106); Potassium 4.3 mmol/L (3.5-5.1); Sodium 137 mmol/L (136-145); Total Protein 8.1 g/dL (6.4-8.2); Troponin I < 0.05 ng/mL (<0.06)
[2020-09-23 11:21] LABS: D-Dimer 1287 ng/mlFEU (<500)
--- NOTE | 2020-09-23 11:23 | DI.RAD_ITS ---
Exam(s) XR PORTABLE CHEST AP EXAM: XR PORTABLE CHEST AP CLINICAL HISTORY: chest pain. TECHNIQUE: 2D digital imaging was performed. COMPARISON: CR XR CHEST 2V PA LATERAL from 09/13/2019 FINDINGS: Again noted are sternotomy wires and cardiomegaly. Previously described 1 cm metallic density in the region of the mitral valve is unchanged in position. There is a pulmonary venous hypertension pattern, not associated with Marty B lines nor pleural effu sions. No airspace pulmonary edema. Chest leads in place. There is no mediastinal widening. IMPRESSION: Cardiomegaly. Sternotomy. Clip in the region of the mitral valve. Pulmonary venous hypertension pa ttern. Recommend nonportable PA and lateral views when clinically possible. DATA REPOSITORY: RADIATION DOSE DELIVERED: All CT scans at this facility use at least one of these dose optimization techniques: automated exposure control; mA and/or kV adjustment per patient size (includes targeted e xams where dose is matched to clinical indication); or iterative reconstruction.
--- NOTE | 2020-09-23 11:30 | DI.CT_ITS ---
Exam(s) CT CHEST PE CTA EXAM: CT CHEST PE CTA CLINICAL HISTORY: chest pain. TECHNIQUE: Imaging Protocol: CT angiography of the chest was performed using pulmonary embolus leyla col. Multi planar reconstructions were performed. CONTRAST MATERIAL: Intravenous: Omnipaque 350 Contrast volume: 80 cc COMPARISON: CT CT ABDOMEN PELVIS W from 01/03/2019 FINDINGS: CHEST: PULMONARY ARTERIES: There are no intraluminal filling defects to suggest acute pulmonary emboli.No sh ift of the interventricular septum. LUNGS: There are no infiltrates nor evidence of pulmonary infarction.. In the posterior aspect of the sub apical left upper lobe there is a 3 millimeter noncalcified pleural-based nodule (series 5/image 7). There are no other focal left lung findings. In the opposite-right lung there is a 4 millimete r noncalcified nodule in the anterior segment of the right upper lobe. No other significant focal ri ght lung nodules. No significant focal findings in the trachea and mainstem bronchi. No bronchiecta sis there are no pleural effusions on either side. MEDIASTINUM: There is no obvious hilar nor mediastinal adenopathy. CARDIAC: Heart size is upper normal. Sternotomy wires noted. There is no pericardial effusion.Calib er of the thoracic aorta is within normal limits. There is no significant shift of the interventricu lar septum. PARTIALLY VISUALIZED UPPERMOST ABDOMEN: No obvious findings OSSEOUS: No significant osseous lesions.. IMPRESSION: 1. No evidence of acute pulmonary emboli. No evidence of pulmonary infarction.No pleural effusions. 2. Mild pulmonary findings as described above. No pleural effusions. 3. Upper normal heart size. No shift of the interventricular septum evident. RADIATION DOSE DELIVERED: 469.86mGy.cm Total DLP DATA REPOSITORY: All CT scans at this facility are submitted to the National Radiology Data Registry (NRDR) Dose Index Registry (DIR) with the [employer] ([employer]). RADIATION OPTIMIZATION: All CT scans at this facility use at least one of these dose optimization te chniques: automated exposure control; mA and/or kV adjustment per patient size (includes targeted exa ms where dose is matched to clinical indication); or iterative reconstruction.
[2020-09-23 11:31] LABS: COVID-19 PCR Negative (Negative)
[2020-09-23] MEDS: Omnipaque 350 MG/ML 100 ML BTL IV (12:15)
[2020-09-23] MEDS: Aspirin 81 MG CHEW 243 MG CH (12:25)
[2020-09-23] MEDS: Normal Saline Flush 10 ML SYR IVP ×2 (12:42→19:58)
[2020-09-23] MEDS: Furosemide 40 MG/4 ML VIAL 60 MG IVP (14:10)
[2020-09-23 14:17] LABS: Troponin I < 0.05 ng/mL (<0.06)
--- NOTE | 2020-09-23 14:46 | HPE_ITS ---
Date of service: 09/23/20 Time of Service: 14:46 Assessment and Plan Assessment and plan (1) CHF (congestive heart failure): Status: Chronic Assessment and plan: last EF 50% per [facility] records. BNP elevated at 1645. she reports she had decreased her lasix dose to 40 mg BID to daily over one month ago, this was d/t increase thirst and dehydration, she did report this at her cardiology appointment last month. she was given 60 mg lasix in ED. will monitor I&O and weights closely, will resume home lasix 40 mg po bid repeat echo cycle troponin (2) Coronary atherosclerosis: Status: Acute Assessment and plan: chest pressure suspected secondary to decompensated right sided heart failure. is pain free now. admitted to telemetry will continue to cycle troponins continue beta-jeancarlos, alexander I, asa, nitrite and statin, she was recently taken off plavix she received full dose asa in ED case discussed with DR Caceres at [facility] cardiology, she is accepted for transfer and is going to be monitored here until bed available. Qualifiers: Associated angina: without angina Coronary Disease-Associated Artery/Lesion type: [place] artery [place] vs. transplanted heart: [place] heart Qualified Code(s): I25.10 - Atherosclerotic heart disease of [place] coronary artery without angina pectoris (3) Diabetes mellitus type 2, controlled: Status: Acute Assessment and plan: A1C August 2019 was 7.2, will add on to ED labs continue diabetic diet, sliding scale coverage as needed. will drop levemir to 40 units (from 50 units) while hospitalized, adjust as needed diabetic education (4) Mitral insufficiency: Status: Acute Assessment and plan: echo pending Qualifiers: Cardiac valve disease etiology: nonrheumatic Qualified Code(s): I34.0 - Nonrheumatic mitral (valve) insufficiency (5) Bipolar 1 disorder: Status: Acute Assessment and plan: stable, continue home medication (6) Hyperlipidemia: Status: Acute Assessment and plan: continue statin (7) Tobacco abuse: Status: Acute Assessment and plan: continue nicotine patch (8) DVT prophylaxis: Status: Acute Assessment and plan: teds, scds lovenox (9) Discharge planning issues: Status: Acute Assessment and plan: to [facility] for further evaluation and management once bed available. discussed with Dr Jeter History of Present Illness History of Present Illness Chief Complaint: chest pain Narrative: This is a 65 year old female followed by cardiology at [facility] with history of CABG 2016, mitral insufficiency, diabetes, HTN, CHF, hyperlipidemia who presents to the ED with a 2-3 day history of chest pressure and worsening shortness of breath. Her workup in the ED is most consistent with decompsated heart failure, likely right sided. Her initial and repeat troponin remained negative, she was given lasix 60 mg. Her case was discussed between ED provider Dr Jenna Morris and Dr Caceres at [facility] cardiology who accepts her in transfer, unfortunately there are no beds available so she is admitted here pending transfer. she is asymptomatic at time of admission. Review of Systems All systems reviewed & are unremarkable except as noted in HPI and below Constitutional Constitutional: Denies fever(s) and Denies weight gain ENT Ears, Nose, Mouth, and Throat: Denies vertigo Cardiovascular Cardiovascular: Reports chest pain, Denies rapid heart rate, Denies pedal edema, Denies edema, Reports dyspnea, Reports dyspnea on exertion and Reports orthopnea Respiratory Respiratory: Reports dyspnea and Reports dyspnea on exertion Gastrointestinal Gastrointestinal: Denies abdominal pain Genitourinary Comments: no increased urination Musculoskeletal Musculoskeletal: Denies back pain, Denies joint swelling and Denies muscle weakness Integumentary/Breasts Skin/Breast: Denies lesions and Denies rash Neurologic Neurologic: Denies vertigo [facility] Medical History (Updated 09/23/20 @ 14:53 by Rola Ayala NP) CHF (congestive heart failure) Diabetes Fibromyalgia GERD (gastroesophageal reflux disease) Hypertension Ischemic cardiomyopathy Sleep apnea Surgical History Hx of CABG 2015 Social History Smoking/Tobacco Use Status: Current every day Tobacco Type: cigarettes Quit status: considering quitting Smoking risk assessment performed?: Yes Drug use: Never Substance use type: does not use What type of physical activity do you participate in: other Details: cardiac rehab Do you feel safe at home: Yes Do you feel safe in your relationship?: Yes History History Para 4 Hx # Term Pregnancies Multiple births Hx # Pregnancies Ectopic pregnancies AB induced Hx Number of Living Children AB spontaneous Meds Allergies and Home Medications Allergies Allergy/AdvReac Type Severity Reaction Status Date / Time ibuprofen AdvReac Severe severe Verified 09/23/20 10:19 vomiting Home Medications Medication Instructions Recorded Confirmed Type lamotrigine [Lamictal] 1 tab PO BID 04/08/14 09/23/20 History acetaminophen-codeine 1 tab PO Q6H PRN 12/09/14 09/23/20 History [Tylenol-Codeine #3] nitroglycerin [Nitrostat] 0.4 mg SUBLINGUAL Q5 MIN PRN X3 07/01/15 09/23/20 Rx PRN #15 tab aspirin [Adult Low Dose Aspirin] 81 mg PO DAILY #30 tab-cap 05/29/16 09/23/20 History lisinopril [Prinivil] 10 mg PO DAILY #90 tab-cap 07/24/16 09/23/20 History rosuvastatin [Crestor] 40 mg PO QPM 01/03/18 09/23/20 History isosorbide mononitrate 30 mg PO DAILY #30 tabcr 01/04/18 09/23/20 Rx multivitamin [Daily Multi-Vitamin] 1 tab DAILY 01/04/18 09/23/20 History vitamin B complex [B-Complex] 1 tab PO DAILY 01/04/18 09/23/20 History alprazolam 0.5 mg PO PRN PRN 11/05/18 09/23/20 History citalopram 20 mg PO DAILY 11/05/18 09/23/20 History cyclobenzaprine 10 mg PO HS PRN 11/05/18 09/23/20 History Narcan 4 mg PRN PRN 11/21/18 09/23/20 History lamotrigine 25 mg tablet 25 mg PO DAILY tab 12/23/18 09/23/20 History magnesium L-lactate 84 mg 84 mg PO DAILY 12/23/18 09/23/20 History tablet,extended release nicotine 14 mg/24 hr daily 1 patch TD DAILY 12/23/18 09/23/20 History transdermal patch clopidogrel 75 mg tablet 75 mg PO DAILY 04/07/19 10/06/19 History pantoprazole 40 mg tablet,delayed 40 mg PO DAILY 04/07/19 09/23/20 History release furosemide 40 mg tablet 40 mg PO BID tab 10/06/19 10/06/19 History insulin glargine 100 unit/mL 55 unit SUBCUT DAILY ml 10/06/19 09/23/20 History subcutaneous solution metoprolol succinate 50 mg 100 mg PO DAILY tab 10/06/19 09/23/20 History tablet,extended release 24 hr cholecalciferol (vitamin D3) 1,000 unit PO DAILY 09/23/20 09/23/20 History potassium chloride 10 meq PO BID 09/23/20 09/23/20 History Exam Const General: cooperative, healthy appearing, comfortable and no acute distress Nutritional Appearance: overweight Orientation: alert, awake and oriented x3 HENMT Head: normal to inspection, normocephalic and atraumatic Mouth: oral mucosae normal Resp Effort & Inspection: normal respiratory effort Auscultation: rales bilaterally at the base Cardio Rate: regular rate Rhythm: regular rhythm Heart Sounds: murmur systolic GI Inspection: normal to inspection Palpation: soft Auscultation: normal bowel sounds Skin General skin exam: no rashes or lesions noted Neuro General: patient alert, patient awake, patient oriented x3 and no focal motor deficits Cognition: normal cognition Speech: speech normal Extrem General: normal to inspection, full ROM and no pedal edema Results Labs Result diagrams: 09/23/20 10:15 09/23/20 10:15 Labs: Laboratory Results - last 24 hr 09/23/20 09/23/20 09/23/20 10:15 10:15 10:15 WBC RBC Hgb Hct MCV MCH MCHC RDW Plt Count MPV Immature Gran % Neutrophils % Lymphocytes % Monocytes % Eosinophils % Basophils % Nucleated RBC % Absolute Neutrophils Absolute Lymphocytes Absolute Monocytes Absolute Eosinophils Absolute Basophils D-Dimer 1287 H Sodium 137 Potassium 4.3 Chloride 101 Carbon Dioxide 24.5 Anion Gap 11.5 H BUN 15 Creatinine 1.0 Estimated GFR/1.73 m2 56.00 Glucose 338 H Calcium 9.2 Magnesium 1.9 Total Bilirubin 0.9 AST 27 ALT 33 Alkaline Phosphatase 101 Troponin I < 0.05 NT-Pro-B Natriuret Pep 1645 H Total Protein 8.1 Albumin 3.6 TSH COVID-19 Source SARS-CoV-2 (PCR) 09/23/20 09/23/20 09/23/20 10:15 10:15 10:45 WBC 9.30 RBC 3.81 L Hgb 11.8 Hct 36.4 MCV 95.5 H MCH 31.0 MCHC 32.4 RDW 13.9 Plt Count 264 MPV 9.9 Immature Gran % 0.4 Neutrophils % 65.9 Lymphocytes % 20.5 Monocytes % 10.5 Eosinophils % 2.3 Basophils % 0.4 Nucleated RBC % 0 Absolute Neutrophils 6.12 Absolute Lymphocytes 1.91 Absolute Monocytes 0.98 H Absolute Eosinophils 0.21 Absolute Basophils 0.04 D-Dimer Sodium Potassium Chloride Carbon Dioxide Anion Gap BUN Creatinine Estimated GFR/1.73 m2 Glucose Calcium Magnesium Total Bilirubin AST ALT Alkaline Phosphatase Troponin I NT-Pro-B Natriuret Pep Total Protein Albumin TSH 1.93 COVID-19 Source Nasopharyx SARS-CoV-2 (PCR) Negative 09/23/20 13:40 WBC RBC Hgb Hct MCV MCH MCHC RDW Plt Count MPV Immature Gran % Neutrophils % Lymphocytes % Monocytes % Eosinophils % Basophils % Nucleated RBC % Absolute Neutrophils Absolute Lymphocytes Absolute Monocytes Absolute Eosinophils Absolute Basophils D-Dimer Sodium Potassium Chloride Carbon Dioxide Anion Gap BUN Creatinine Estimated GFR/1.73 m2 Glucose Calcium Magnesium Total Bilirubin AST ALT Alkaline Phosphatase Troponin I < 0.05 NT-Pro-B Natriuret Pep Total Protein Albumin TSH COVID-19 Source SARS-CoV-2 (PCR) Last Vital Signs Temp 36.4 C L 09/23/20 10:15 Pulse 57 L 09/23/20 12:31 Resp 8 L 09/23/20 12:40 BP 132/55 L 09/23/20 12:31 Pulse Ox 97 09/23/20 12:40 COVID-19 Screening Have you, or household traveled for leisure in last 14 days?: No Had IN PERSON contact w/suspected or confirmed C-19 person: No
[2020-09-23 16:22] LABS: Hemoglobin A1C 7.4 % (<5.7)
--- NOTE | 2020-09-23 16:26 | RESPIRATORY ---
RT spoke to patient concerning the history of sleep apnea listed in her medical record. Patient stated she's never done anything for it and seems to be doing fine. Patient doesn't use an device or oxygen at night.
[2020-09-23] MEDS: Insulin Aspart 300 UNITS/3 ML PEN SC (17:17)
[2020-09-23] MEDS: ALPRAZolam 0.5 MG TAB PO (19:57)
[2020-09-23] MEDS: ROSUVASTATIN 20 MG TAB 40 MG PO (19:57)
[2020-09-23] MEDS: lamoTRIgine 100 MG TAB PO (19:57)
[2020-09-23] MEDS: Potassium Chloride 10 MEQ CAPCR PO (19:58)
[2020-09-23] MEDS: lamoTRIgine 25 MG TAB PO (21:11)
[2020-09-23] MEDS: Metoprolol CR 100 MG TABCR PO (21:12)
[2020-09-23] MEDS: Pantoprazole 40 MG TABCR PO (21:12)
[2020-09-23] MEDS: Isosorbide Mononitrate 30 MG TABCR PO (21:12)
[2020-09-23] MEDS: Magnesium Lactate-SR 84 MG TABCR PO (21:12)
[2020-09-23] MEDS: Aspirin E.C. 81 MG TABEC PO (21:12)
[2020-09-23 21:53] LABS: Troponin I < 0.05 ng/mL (<0.06)
[2020-09-24 03:20] VITALS: BP 108/63; PULSE 56; RESP 12; TEMP 36.9; O2SAT 89
[2020-09-24 03:23] VITALS: O2SAT 96
[2020-09-24 07:00] VITALS: PULSE 54
[2020-09-24 07:06] LABS: Abs Immature Grans 0.04 10^3/uL (0.0-0.06); Absolute Basophil Count 0.05 10^3/uL (0.0-0.2); Absolute Eosinophil Count 0.33 10^3/uL (0.0-0.7); Absolute Lymphocyte Count 1.92 10^3/uL (1.2-3.4); Absolute Monocyte Count 0.99 10^3/uL (0.1-0.8); Absolute Neutrophil Count 5.23 10^3/uL (1.2-6.7); Basophils % 0.6; Eosinophils % 3.9; HCT 34.7 % (36.0-46.0); HGB 11.4 g/dL (11.2-15.7); Immature Grans % 0.5; Lymphocytes % 22.4; MCH 30.7 pg (27.0-33.0); MCHC 32.9 % (32.0-36.0); MCV 93.5 fL (80-95); Monocytes % 11.6; Nucleated RBC 0 %; Platelet Count 266 10^3/uL (130-400); RBC 3.71 10^6/uL (3.93-5.22); RDW 13.9 % (11.7-14.6); RDW-SD 47.2 fL; WBC 8.56 10^3/uL (4.4-10.8)
[2020-09-24 07:21] LABS: Anion Gap 8.4 mmol/L (3-11); BUN 18 mg/dL (7-18); CO2 28.6 mmol/L (21.0-32.0); CREATININE 0.9 mg/dL (0.55-1.02); Calcium 9.2 mg/dL (8.5-10.1); Chloride 105 mmol/L (98-107); Glucose 129 mg/dL (74-106); Sodium 142 mmol/L (136-145)
[2020-09-24 07:24] LABS: Troponin I < 0.05 ng/mL (<0.06)
[2020-09-24 08:00] VITALS: BP 107/59; PULSE 55; RESP 19; TEMP 36.6; O2SAT 95; O2SAT 98
[2020-09-24] MEDS: Multivitamin TAB 1 TAB PO (08:23)
[2020-09-24] MEDS: Magnesium Lactate-SR 84 MG TABCR PO (08:23)
[2020-09-24] MEDS: Potassium Chloride 10 MEQ CAPCR PO (08:23)
[2020-09-24] MEDS: lamoTRIgine 25 MG TAB PO (08:24)
[2020-09-24] MEDS: Citalopram 20 MG TAB PO (08:24)
[2020-09-24] MEDS: Cholecalciferol (Vitamin D3) 1,000 UNIT TAB 1000 UNITS PO (08:24)
[2020-09-24] MEDS: Vitamins B Comp w/C TAB 1 TAB PO (08:24)
[2020-09-24] MEDS: Furosemide 40 MG TAB PO (08:24)
[2020-09-24] MEDS: lamoTRIgine 100 MG TAB PO (08:24)
[2020-09-24] MEDS: Nicotine 14 MG/24 HR PATCH TD (08:24)
[2020-09-24] MEDS: Lisinopril 10 MG TAB PO (08:24)
[2020-09-24] MEDS: Insulin Glargine 300 UNITS/3 ML PEN 40 UNITS SC (08:27)
[2020-09-24 09:48] VITALS: O2SAT 98
[2020-09-24] MEDS: ALPRAZolam 0.5 MG TAB PO (09:57)
--- NOTE | 2020-09-24 09:58 | W.PM.DS.N ---
Date of service: 09/24/20 Time of Service: 09:58 DS: Diagnosis Discharge Diagnosis (1) CHF (congestive heart failure): Status: Chronic (2) Coronary atherosclerosis: Status: Acute (3) Diabetes mellitus type 2, controlled: Status: Acute (4) Mitral insufficiency: Status: Acute (5) Bipolar 1 disorder: Status: Acute (6) Hyperlipidemia: Status: Acute (7) Tobacco abuse: Status: Acute Discharge Plan Disposition Patient Disposition: [facility] Condition: Stable Discharge Details Reason For Visit: SOB, CHEST PAIN Admit Date/Time: 09/23/20 14:25 Admit Provider: Maira Jeter Attending Provider: Maira Jeter Primary Care Provider: Con Gardner Hospital Course Hospital Course: This is a 65 year old female followed by cardiology at [facility] with history of CABG 2016, mitral insufficiency, diabetes, HTN, CHF, hyperlipidemia who presents to the ED with a 2-3 day history of chest pressure and worsening shortness of breath. She reports she has had worsening shortness of breath for weeks now. She also reports that about a month ago she stopped taking her afternoon lasix 40 mg dose because she felt too dehydrated. Apparently she did discuss with her mountain guide at last appointment. She was also at that time taken off her Plavix. she does report her symptoms worsening slowly since that time. Her workup in the ED is most consistent with decompsated heart failure, likely right sided. Her initial and repeat troponin remained negative, she was given lasix 60 mg IVP. Her case was discussed between ED provider Dr Jenna Morris and Dr Caceres at [facility] cardiology who accepts her in transfer, unfortunately there are no beds available so she was admitted here pending transfer. she was asymptomatic at rest at time of admission but overnight did have shortness of breath with minimal activity, recurrent chest pressure and was noted to be hypoxic with sat in high 80's improved on 1 liter nc. She had an echocardiogram prior to transfer, results not available at time of discharge. Her troponin has remained negative. She denies any improvement in her shortness of breath since admission and after IV diuretics. This morning we have been notified that a bed is available and she is transported by ground ems. She did decline her afternoon dose of lasix yesterday after admission as she received an IV dose in the ED. She has chosen not to vaccinate against covid 19 and has tested negative by routine admission PCR. Discharge discussed with DR Jeter Home Meds and New Rx's Prescriptions: Continued nicotine [Nicoderm CQ] 14 mg/24 hr patch 24 hour 1 patch TD DAILY RF: 0 lamotrigine [Lamictal] 25 mg tablet 25 mg PO DAILY RF: 0 magnesium L-lactate 84 mg tablet extended release 84 mg PO DAILY RF: 0 pantoprazole 40 mg tablet,delayed release (DR/EC) 40 mg PO DAILY RF: 0 furosemide [Lasix] 40 mg tablet 40 mg PO BID RF: 0 aspirin [Adult Low Dose Aspirin] 81 MG tablet,delayed release (DR/EC) 81 mg PO DAILY Qty: 30 RF: 6 lisinopril [Prinivil] 10 MG tablet 10 mg PO DAILY Qty: 90 RF: 4 lamotrigine [Lamictal] 100 MG tablet 1 tab PO BID RF: 0 nitroglycerin [Nitrostat] 0.4 MG tablet, sublingual 0.4 mg Sublingual Q5 MIN PRN X3 PRN (Reason: Chest Pain) Qty: 15 RF: 0 potassium chloride 10 mEq capsule, extended release 10 meq PO BID RF: 0 cholecalciferol (vitamin D3) 25 mcg (1,000 unit) Capsule 1,000 unit PO DAILY RF: 0 rosuvastatin [Crestor] 40 MG tablet 40 mg PO QPM RF: 0 multivitamin [Daily Multi-Vitamin] 1 EACH tablet 1 tab DAILY RF: 0 vitamin B complex [B-Complex] 1 EACH tablet 1 tab PO DAILY RF: 0 isosorbide mononitrate 30 MG tablet extended release 24 hr 30 mg PO DAILY Qty: 30 RF: 0 alprazolam 0.5 mg Tablet 0.5 mg PO PRN PRNRF: 0 citalopram 20 mg Tablet 20 mg PO DAILY RF: 0 Lantus U-100 Insulin 100 unit/mL solution 55 unit subcut DAILY RF: 0 Narcan 4 mg/actuation [place],Non-Aerosol 4 mg PRN PRNRF: 0 metoprolol succinate 50 mg tablet extended release 24 hr 100 mg PO DAILY RF: 0 Discharge Instructions Instructions: Chest Pain (DC) Referrals: Con Gardner MD [Primary Care Provider] - Activity:: Activity as Tolerated Equipment/Supplies:: No Equipment Needed Diet:: As Tolerated Discharge Orders Discharge Orders: Discharge Order (Routine); Ordered 09/24/20 Ordered By: Rola Ayala DS: Summary Time Spent with Patient providing and/or coordinating discharge services: Greater than 30 minutes Status at Discharge Functional status at discharge: independent ambulation Overall status at discharge: patient is not back to baseline Mental Status: mental status grossly normal Speech and Movement: speech and movement normal Mood: congruent mood Affect: normal affect Exam Const General: cooperative, healthy appearing, comfortable and no acute distress Nutritional Appearance: overweight Orientation: alert, awake and oriented x3 HENMT Head: normal to inspection, normocephalic and atraumatic Mouth: oral mucosae normal Resp Effort & Inspection: normal respiratory effort Auscultation: rales bilaterally at the base Cardio Rate: regular rate Rhythm: regular rhythm Heart Sounds: murmur systolic GI Inspection: normal to inspection Palpation: soft Auscultation: normal bowel sounds Skin General skin exam: no rashes or lesions noted Neuro General: patient alert, patient awake, patient oriented x3 and no focal motor deficits Cognition: normal cognition Speech: speech normal Extrem General: normal to inspection, full ROM and no pedal edema Psych Mental Status: mental status grossly normal Speech and Movement: speech and movement normal Mood: congruent mood Affect: normal affect DS: Data Vitals/I&O Vitals and I&O: Vital Signs Temperature 36.9 C 09/24/20 03:20 Temperature Source Tympanic 09/24/20 03:20 Pulse 54 L 09/24/20 07:00 Pulse Rhythm Regular 09/24/20 03:25 Pulse 71 09/23/20 15:31 Respiratory Rate 12 09/24/20 03:20 Respiratory Effort 09/24/20 03:25 Respiratory Depth Normal 09/24/20 03:25 Respiratory Pattern Normal 09/24/20 03:25 Blood Pressure 108/63 09/24/20 03:20 Blood Pressure Mean 87 09/23/20 15:31 Blood Pressure Position Supine 09/23/20 10:15 Pulse Oximetry 98 09/24/20 09:48 Oxygen Delivery Method Room Air 09/24/20 09:48 Oxygen Flow Rate 0 09/24/20 09:48 Pain Level 0 09/24/20 03:20 Intake & Output 09/23/20 09/23/20 09/24/20 11:59 23:59 11:59 Output Total 1800 / 1800 Balance -1800 / -1800 Weight 87.5 kg 84.3 kg Output: Urine 1800 / 1800 Other: Urine Color Yellow Urine Appearance Clear Clear Urine Odor Normal Comment Urine in hat upon arrival of this RN. Voiding Methods Toilet Data Completed and Pending Labs on day of discharge: Labs from last 24 hours 09/24/20 09/24/20 09/23/20 06:20 06:20 21:32 WBC 8.56 RBC 3.71 L Hgb 11.4 Hct 34.7 L MCV 93.5 MCH 30.7 MCHC 32.9 RDW 13.9 Plt Count 266 MPV 10.0 Immature Gran % 0.5 Neutrophils % 61.0 Lymphocytes % 22.4 Monocytes % 11.6 Eosinophils % 3.9 Basophils % 0.6 Nucleated RBC % 0 Absolute Neutrophils 5.23 Absolute Lymphocytes 1.92 Absolute Monocytes 0.99 H Absolute Eosinophils 0.33 Absolute Basophils 0.05 D-Dimer Sodium 142 Potassium 4.0 Chloride 105 Carbon Dioxide 28.6 Anion Gap 8.4 BUN 18 Creatinine 0.9 Estimated GFR/1.73 m2 >= 60.00 Glucose 129 H D Hemoglobin A1c Calcium 9.2 Magnesium Total Bilirubin AST ALT Alkaline Phosphatase Troponin I < 0.05 < 0.05 NT-Pro-B Natriuret Pep Total Protein Albumin TSH COVID-19 Source SARS-CoV-2 (PCR) 09/23/20 09/23/20 09/23/20 13:40 10:45 10:15 WBC RBC Hgb Hct MCV MCH MCHC RDW Plt Count MPV Immature Gran % Neutrophils % Lymphocytes % Monocytes % Eosinophils % Basophils % Nucleated RBC % Absolute Neutrophils Absolute Lymphocytes Absolute Monocytes Absolute Eosinophils Absolute Basophils D-Dimer Sodium Potassium Chloride Carbon Dioxide Anion Gap BUN Creatinine Estimated GFR/1.73 m2 Glucose Hemoglobin A1c 7.4 H Calcium Magnesium Total Bilirubin AST ALT Alkaline Phosphatase Troponin I < 0.05 NT-Pro-B Natriuret Pep Total Protein Albumin TSH COVID-19 Source Nasopharyx SARS-CoV-2 (PCR) Negative 09/23/20 09/23/20 09/23/20 10:15 10:15 10:15 WBC 9.30 RBC 3.81 L Hgb 11.8 Hct 36.4 MCV 95.5 H MCH 31.0 MCHC 32.4 RDW 13.9 Plt Count 264 MPV 9.9 Immature Gran % 0.4 Neutrophils % 65.9 Lymphocytes % 20.5 Monocytes % 10.5 Eosinophils % 2.3 Basophils % 0.4 Nucleated RBC % 0 Absolute Neutrophils 6.12 Absolute Lymphocytes 1.91 Absolute Monocytes 0.98 H Absolute Eosinophils 0.21 Absolute Basophils 0.04 D-Dimer Sodium 137 Potassium 4.3 Chloride 101 Carbon Dioxide 24.5 Anion Gap 11.5 H BUN 15 Creatinine 1.0 Estimated GFR/1.73 m2 56.00 Glucose 338 H Hemoglobin A1c Calcium 9.2 Magnesium Total Bilirubin 0.9 AST 27 ALT 33 Alkaline Phosphatase 101 Troponin I < 0.05 NT-Pro-B Natriuret Pep Total Protein 8.1 Albumin 3.6 TSH 1.93 COVID-19 Source SARS-CoV-2 (PCR) 09/23/20 09/23/20 10:15 10:15 WBC RBC Hgb Hct MCV MCH MCHC RDW Plt Count MPV Immature Gran % Neutrophils % Lymphocytes % Monocytes % Eosinophils % Basophils % Nucleated RBC % Absolute Neutrophils Absolute Lymphocytes Absolute Monocytes Absolute Eosinophils Absolute Basophils D-Dimer 1287 H Sodium Potassium Chloride Carbon Dioxide Anion Gap BUN Creatinine Estimated GFR/1.73 m2 Glucose Hemoglobin A1c Calcium Magnesium 1.9 Total Bilirubin AST ALT Alkaline Phosphatase Troponin I NT-Pro-B Natriuret Pep 1645 H Total Protein Albumin TSH COVID-19 Source SARS-CoV-2 (PCR) PFSH Medical History (Updated 09/23/20 @ 14:53 by Rola Ayala NP) CHF (congestive heart failure) Diabetes Fibromyalgia GERD (gastroesophageal reflux disease) Hypertension Ischemic cardiomyopathy Sleep apnea Surgical History Hx of CABG 2015 Social History Smoking/Tobacco Use Status: Current every day Tobacco Type: cigarettes Quit status: considering quitting Smoking risk assessment performed?: Yes Drug use: Never Substance use type: does not use What type of physical activity do you participate in: other Details: cardiac rehab Do you feel safe at home: Yes Do you feel safe in your relationship?: Yes History History Para 4 Hx # Term Pregnancies Multiple births Hx # Pregnancies Ectopic pregnancies AB induced Hx Number of Living Children AB spontaneous
--- NOTE | 2020-09-24 10:55 | W.INDIABCONS ---
Date of service: 09/24/20 Time of Service: 10:55 Diabetes Inpatient Consult DESCRIPTION/ASSESSMENT: 65 year old female admitted with Chest pain with hx of CHF, Obesity, DM2, CABG 2016 and HTN. Not in room at time of visit. Chart review indicates adequately controlled DM 2 with A1C of 7.4% in view of comorbidities. Home Dm meds include lantus 55 u HS. May benefit from addition of [id number] for further glycemic control. Following diabetic diet, no po info documented. INTERVENTION: continue current meal plan PLAN: will follow up and support as needed. At this time, current home DM meds appear adequate, may benefit from addition of [id number] Time Spent in Nutritional Counseling and Treatment: 0
== END 2020-09-24 10:04 | disposition short-term general hospital (02) ==
LOC: ER 14:41 → MS 15:45
PROVIDERS: Nurse Practitioner Acute Care; Admitting Provider Internal Medicine; Emergency Provider Student in an Organized Health Care Education/Training Program; PCP Internal Medicine; Visit Provider Internal Medicine
DX: I11.0 Hypertensive heart disease with heart failure (principal); I50.9 Heart failure, unspecified; R06.02 Shortness of breath; R07.89 Other chest pain; I25.10 Atherosclerotic heart disease of native coronary artery without angina pectoris; E11.9 Type 2 diabetes mellitus without complications; I34.0 Nonrheumatic mitral (valve) insufficiency; F31.89 Other bipolar disorder; E78.5 Hyperlipidemia, unspecified; F17.210 Nicotine dependence, cigarettes, uncomplicated; M79.7 Fibromyalgia; K21.9 Gastro-esophageal reflux disease without esophagitis; G47.30 Sleep apnea, unspecified; I25.5 Ischemic cardiomyopathy; Z95.1 Presence of aortocoronary bypass graft
CPT/HCPCS: 36415; 71275; 80048; 80053; 87635; 93005; 96374; 99285; 71045; 83036; 83735; 83880; 84443; 84484; 85025; 85379; 93010; 93306; 99217; 99220; G0378; J1815; J1940; J3490

== ENCOUNTER 2020-09-30 16:20 | Outpatient (REF) | payer MEDICARE, SELFPAY ==
[2020-09-30 21:48] LABS: Anion Gap 8.5 mmol/L (3-11); BUN 20 mg/dL (7-18); CO2 27.5 mmol/L (21.0-32.0); CREATININE 0.9 mg/dL (0.55-1.02); Calcium 9.8 mg/dL (8.5-10.1); Chloride 103 mmol/L (98-107); Glucose 167 mg/dL (74-106); NT-proBNP 284 pg/mL (<300); Potassium 4.1 mmol/L (3.5-5.1); Sodium 139 mmol/L (136-145)
== END 2020-09-30 16:21 | disposition home or self-care (01) ==
LOC: NCHCN 16:20
PROVIDERS: PCP Internal Medicine; Visit Provider Internal Medicine
DX: I50.22 Chronic systolic (congestive) heart failure (principal)
CPT/HCPCS: 80048; 83880

== ENCOUNTER → 2020-10-07 08:48 | Outpatient (BNVA) | payer MEDICARE, SELFPAY | PROVIDERS: PCP Internal Medicine; Referring Provider Nurse Practitioner Family; Visit Provider Internal Medicine Cardiovascular Disease | DX: I25.5 Ischemic cardiomyopathy (principal); I50.9 Heart failure, unspecified; I25.10 Atherosclerotic heart disease of native coronary artery without angina pectoris; Z95.5 Presence of coronary angioplasty implant and graft; Z98.890 Other specified postprocedural states | CPT/HCPCS: 99214; 99213 ==

== ENCOUNTER 2020-11-13 10:00 | Outpatient (RCR) | payer MEDICARE, SELFPAY | END 2020-11-13 23:59 | disposition home or self-care (01) | LOC: CR 10:00 | PROVIDERS: PCP Internal Medicine; Visit Provider Family Medicine | DX: Z51.89 Encounter for other specified aftercare (principal); I50.9 Heart failure, unspecified | CPT/HCPCS: S9472 ==

== ENCOUNTER 2020-12-13 11:00 | Outpatient (RCR) | payer MEDICARE, SELFPAY | END 2020-12-14 23:59 | disposition home or self-care (01) | LOC: CR 11:00 | PROVIDERS: PCP Internal Medicine; Visit Provider Family Medicine | DX: Z51.89 Encounter for other specified aftercare (principal); I50.31 Acute diastolic (congestive) heart failure | CPT/HCPCS: S9472 ==

== ENCOUNTER 2020-12-25 11:00 | Outpatient (RCR) | payer MEDICARE, SELFPAY ==
--- NOTE | 2020-12-25 11:15 | RT.EKG_ITS ---
APPROVED REPORT Exam: Resting ECG Reason for Exam: chest tightness Patient Location: O HR:69 bpm ECG Measurements Heart Rate 69 AXIS AZ 171 P 70 QRSd 101 QRS 34 QT 403 T 95 QTc 432 Conclusion Sinus rhythm...normal P axis, V-rate 50- 99 Anteroseptal infarct, old...Q >40mS, V1-V2 Nonspecific T abnormalities, lateral leads...T <-0.10mV, I aVL V5 V6
== END 2021-01-14 23:59 | disposition home or self-care (01) ==
LOC: CR 11:00
PROVIDERS: PCP Internal Medicine; Visit Provider Family Medicine
DX: Z51.89 Encounter for other specified aftercare (principal); I50.31 Acute diastolic (congestive) heart failure
CPT/HCPCS: S9472

== ENCOUNTER 2020-12-26 12:16 | Observation (INO) | payer MEDICARE, SELFPAY ==
[2020-12-26] VITALS (58 sets, daily range): BP systolic 94–131; BP diastolic 39–104; PULSE 59–103; RESP 8–19; TEMP 36.6–36.7; O2SAT 94–99
--- NOTE | 2020-12-26 12:15 | RT.EKG_ITS ---
APPROVED REPORT Exam: Resting ECG Reason for Exam: chest pain Patient Location: E HR:62 bpm ECG Measurements Heart Rate 62 AXIS AZ 179 P 51 QRSd 101 QRS -25 QT 422 T 86 QTc 429 Conclusion Sinus rhythm...normal P axis, V-rate 60- 99 Probable left atrial enlargement...P >50mS, <-0.10mV V1 Inferior infarct, old...Q >35mS, II III aVF. No STEMI. I have reviewed and interpreted ECG and agree with software generated interpretation.
--- NOTE | 2020-12-26 12:40 | W.ED.GENAD ---
Discharge Plan Disposition [facility] Condition: Stable Discharge Details Clinical Impression: Chest pain, rule out acute myocardial infarction, Hx of CABG Admit Date/Time: 12/26/20 17:25 Admit Provider: Rashad Ivey Attending Provider: Rashad Ivey Primary Care Provider: Con Gardner ED Provider: Brigid Newberry Discharge Data Discharge Date/Time-TO BE ENTERED AT DEPARTURE: 12/26/20 18:37 Medical Decision Making 64-year-old female with a history of morbid obesity, diabetes, hypertension, hyperlipidemia, coronary artery disease with coronary artery stent in CABG presents for left-sided chest pressure with radiation to the left side of her neck that started while walking on the treadmill at cardiac rehab yesterday. EKG done at cardiac rehab yesterday noted a rate of 69, sinus, with T wave inversion in 1 and aVL with less than [address] depression in 2 and aVF but no STEMI. EKG today notes a rate of 62, sinus, with T wave inversion in 1 and aVL but no evidence of ST depression or elevation. Considering patient's age and risk factors, will obtain a cardiac work-up and CT chest. Will order nitro. Labs reviewed and unremarkable. Troponin negative. Normal white blood cell count. BNP normal. CT chest negative. Patient states her pain was a 1/10 and had declined the nitro. Case discussed with [facility] cardiology who recommends observation overnight with trending troponins, with plan for stress test and if possible echocardiogram tomorrow. As pain started during exertion, potential for unstable angina. Patient had an unremarkable cardiac cath in September 2020. Case discussed with hospitalist who accepts patient for admission. Patient is agreeable with plan. Medical Records Medical records reviewed: Yes I reviewed the patient's medical records. Imaging Data Radiologic Study: Radiologist's impression: CT THORAX CTA CLINICAL HISTORY: L sided chest pain, r/o dissection. TECHNIQUE: Imaging Protocol: Axial CT angiography was performed with multi-slice acquisition and multi-planar and/or 3D reconstructions. CONTRAST MATERIAL: Intravenous: Omnipaque 350 Contrast volume:100 mL COMPARISON: CT CT CHEST PE CTA from 09/23/2020 FINDINGS: Tracheobronchial tree: Patent where visualized. Pulmonary parenchyma: No new pulmonary nodules are seen. The small area of atelectasis or scarring in the left lingula. Pulmonary Arteries: No evidence of filling defect to suggest pulmonary emboli. Mediastinum and Ronel: No dominant adenopathy or fluid collection. Visualized thyroid gland: There is a 0.4 cm round hypodense nodule in the right lobe of the thyroid gland. No associated suspicious findings are seen. No follow-up is recommended. Pleura: No effusion or pneumothorax. Heart: Mild cardiomegaly. Moderate coronary artery calcification. No pericardial effusion. Aorta: Thoracic aorta non-dilated. Atherosclerosis. No evidence of dissection. Upper abdomen: Unremarkable. Soft tissues: Unremarkable. Bones: Within normal limits for the patient's age.Status post sternotomy. IMPRESSION: 1. No evidence of pulmonary embolism, thoracic aortic dissection or aneurysm. 2. Results of this exam have been verbally communicated with provider. Lab Data Lab results reviewed: Yes I reviewed the patient's lab results. Labs: Laboratory Tests Range/Units 12/26/20 12/26/20 12/26/20 12:39 12:39 12:39 WBC (4.4-10.8) 10^3/uL 8.74 RBC (3.93-5.22) 10^6/uL 4.05 Hgb (11.2-15.7) g/dL 12.3 Hct (36.0-46.0) % 37.2 MCV (80-95) fL 91.9 MCH (27.0-33.0) pg 30.4 MCHC (32.0-36.0) % 33.1 RDW (11.7-14.6) % 13.2 Plt Count (130-400) 10^3/uL 257 MPV (8.0-11.0) fL 9.4 Immature Gran % 0.5 Neutrophils % 55.4 Lymphocytes % 30.2 Monocytes % 9.7 Eosinophils % 3.7 Basophils % 0.5 Nucleated RBC % % 0 Absolute Neutrophils (1.2-6.7) 10^3/uL 4.85 Absolute Lymphocytes (1.2-3.4) 10^3/uL 2.64 Absolute Monocytes (0.1-0.8) 10^3/uL 0.85 H Absolute Eosinophils (0.0-0.7) 10^3/uL 0.32 Absolute Basophils (0.0-0.2) 10^3/uL 0.04 Sodium (136-145) mmol/L 138 Potassium (3.5-5.1) mmol/L 4.2 Chloride (98-107) mmol/L 104 Carbon Dioxide (21.0-32.0) mmol/L 24.6 Anion Gap (3-11) mmol/L 9.4 BUN (7-18) mg/dL 11 Creatinine (0.55-1.02) mg/dL 0.7 Estimated GFR/1.73 m2 (mL/min/1.73m2) >= 60.00 Glucose (74-106) mg/dL 160 H Calcium (8.5-10.1) mg/dL 9.0 Magnesium (1.8-2.4) mg/dL 1.9 Total Bilirubin (0.2-1.0) mg/dL 0.3 AST (15-37) U/L 23 ALT (14-59) U/L 27 Alkaline Phosphatase (46-116) U/L 82 Troponin I (<0.06) ng/mL < 0.05 NT-Pro-B Natriuret Pep (<300) pg/mL 235 Total Protein (6.4-8.2) g/dL 7.6 Albumin (3.4-5.0) g/dL 3.5 Range/Units 12/26/20 13:30 WBC (4.4-10.8) 10^3/uL RBC (3.93-5.22) 10^6/uL Hgb (11.2-15.7) g/dL Hct (36.0-46.0) % MCV (80-95) fL MCH (27.0-33.0) pg MCHC (32.0-36.0) % RDW (11.7-14.6) % Plt Count (130-400) 10^3/uL MPV (8.0-11.0) fL Immature Gran % Neutrophils % Lymphocytes % Monocytes % Eosinophils % Basophils % Nucleated RBC % % Absolute Neutrophils (1.2-6.7) 10^3/uL Absolute Lymphocytes (1.2-3.4) 10^3/uL Absolute Monocytes (0.1-0.8) 10^3/uL Absolute Eosinophils (0.0-0.7) 10^3/uL Absolute Basophils (0.0-0.2) 10^3/uL Sodium (136-145) mmol/L Potassium (3.5-5.1) mmol/L Chloride (98-107) mmol/L Carbon Dioxide (21.0-32.0) mmol/L Anion Gap (3-11) mmol/L BUN (7-18) mg/dL Creatinine (0.55-1.02) mg/dL Estimated GFR/1.73 m2 (mL/min/1.73m2) Glucose (74-106) mg/dL Calcium (8.5-10.1) mg/dL Magnesium (1.8-2.4) mg/dL Total Bilirubin (0.2-1.0) mg/dL AST (15-37) U/L ALT (14-59) U/L Alkaline Phosphatase (46-116) U/L Troponin I (<0.06) ng/mL < 0.05 NT-Pro-B Natriuret Pep (<300) pg/mL Total Protein (6.4-8.2) g/dL Albumin (3.4-5.0) g/dL ECG Data Attestation: I personally reviewed and interpreted this ECG (s) as follows: Interpretation: #1 -- Rate of 62, sinus, T wave inversion in 1 and aVL, no STEMI. #2 -- Rate of 65, sinus, no STEMI. HPI General Mode of arrival: ambulatory. Date/Time Provider Initiated Documentation: 12/26/20 12:19. Limitations to Documentation: no limitations. Information obtained by: patient. HPI Narrative: Yes she can go patient is a 65-year-old female with a history of obesity, diabetes, hypertension, hyperlipidemia, coronary artery disease with CABG and coronary stent placement who presents to the ED with a complaint of chest pain, nausea and lightheadedness since yesterday while walking on the treadmill at cardiac rehab. Patient states the pain is pressure-like and is located under her left breast and left sternum with radiation up to the left side of her neck. She states the pain has been constant since yesterday but is more reduced at present and denies any aggravating or alleviating factors. Patient states she has nitro at home but states it was and did not take this for her pain. She does admit to intermittent shortness of breath and lightheadedness in addition to some nausea but denies any vomiting. She states she had an EKG done at cardiac rehab yesterday and was told it was not completely normal and was advised to come to the ER for further evaluation but she declined and wanted to go home. She states she is here today because the pain is not improved. Related Data Home Medications Medication Instructions Recorded Confirmed lamotrigine [Lamictal] 1 tab PO BID 04/08/14 12/26/20 nitroglycerin [Nitrostat] 0.4 mg SUBLINGUAL Q5 MIN PRN X3 07/01/15 12/26/20 PRN #15 tab aspirin [Adult Low Dose Aspirin] 81 mg PO DAILY #30 tab-cap 05/29/16 12/26/20 rosuvastatin [Crestor] 40 mg PO QPM 01/03/18 12/26/20 multivitamin [Daily Multi-Vitamin] 1 tab DAILY 01/04/18 12/26/20 vitamin B complex [B-Complex] 1 tab PO DAILY 01/04/18 12/26/20 alprazolam 0.5 mg PO PRN PRN 11/05/18 12/26/20 citalopram 20 mg PO DAILY 11/05/18 12/26/20 Narcan 4 mg PRN PRN 11/21/18 12/26/20 magnesium L-lactate 84 mg 84 mg PO DAILY 12/23/18 12/26/20 tablet,extended release nicotine 14 mg/24 hr daily 1 patch TD DAILY 12/23/18 12/26/20 transdermal patch pantoprazole 40 mg tablet,delayed 40 mg PO DAILY 04/07/19 12/26/20 release insulin glargine 100 unit/mL 55 unit SUBCUT DAILY ml 10/06/19 12/26/20 subcutaneous solution cholecalciferol (vitamin D3) 1,000 unit PO DAILY 09/23/20 12/26/20 potassium chloride 10 meq PO BID 09/23/20 12/26/20 lisinopril 10 mg tablet 20 mg PO DAILY #90 tab-cap 10/07/20 12/26/20 clopidogrel 75 mg PO DAILY 12/27/20 12/27/20 furosemide 20 mg PO QPM 12/27/20 12/27/20 furosemide 40 mg PO QAM 12/27/20 12/27/20 isosorbide mononitrate 60 mg PO HS #60 tab 12/27/20 lamotrigine 25 mg PO BID 12/27/20 12/27/20 metoprolol succinate 75 mg PO DAILY 12/27/20 12/27/20 Previous Rx's Medication Instructions Recorded nitroglycerin [Nitrostat] 0.4 mg SUBLINGUAL Q5 MIN PRN X3 07/01/15 PRN #15 tab isosorbide mononitrate 60 mg PO HS #60 tab 12/27/20 Allergies Allergy/AdvReac Type Severity Reaction Status Date / Time ibuprofen AdvReac Severe severe Verified 12/26/20 12:35 vomiting General Stated Complaint: Chest Pain CHRIS: 2 Review of Systems All systems reviewed & are unremarkable except as noted in HPI and below Constitutional Constitutional: Reports as per HPI, Denies chills and Denies fever(s) Eyes Eyes: Denies blurry vision ENT Ears, Nose, Mouth, and Throat: Reports dizziness, Denies sore throat and Denies throat swelling Cardiovascular Cardiovascular: Reports chest pain and Reports dyspnea Respiratory Respiratory: Denies cough and Reports dyspnea Gastrointestinal Gastrointestinal: Denies abdominal pain, Denies diarrhea and Denies vomiting Genitourinary Genitourinary: Denies hematuria and Denies dysuria Musculoskeletal Musculoskeletal: Denies back pain and Denies numbness Integumentary/Breasts Skin/Breast: Denies lesions and Denies rash Neurologic Neurologic: Reports dizziness, Denies localized weakness and Denies numbness Allergic/Immunologic Allergic/Immunologic: Denies throat swelling REPLACED BY [facility] Medical History (Updated 12/27/20 @ 16:18 by Maira Jeter MD) Bipolar 1 disorder CHF (congestive heart failure) Diabetes Fibromyalgia GERD (gastroesophageal reflux disease) Hypertension Ischemic cardiomyopathy Sleep apnea Tobacco abuse Surgical History (Updated 12/26/20 @ 22:55 by Rashad Ivey) Hx of CABG 2016 S/P mitral valve clip implantation Status post carpal tunnel release of both wrists Social History (Updated 12/26/20 @ 22:56 by Rashad Ivey) Smoking/Tobacco Use Status: Current every day Tobacco Type: cigarettes Quit status: considering quitting Smoking risk assessment performed?: Yes Drug use: Never Substance use type: does not use What type of physical activity do you participate in: other Details: cardiac rehab Do you feel safe at home: Yes Do you feel safe in your relationship?: Yes Additional Social history: Lives with her adult son. 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 History History Para 4 Hx # Term Pregnancies Multiple births Hx # Pregnancies Ectopic pregnancies AB induced Hx Number of Living Children AB spontaneous Exam Const General: cooperative and no acute distress Nutritional Appearance: obese morbidly obese Orientation: alert, awake and oriented x3 HENMT Head: normal to inspection Face and sinus: normal facial exam Eyes General: appearance normal, both eyes and all related structures EOM: EOM intact bilaterally Neck Neck: normal visual inspection and No submandibular swelling Lymphatic: no lymphadenopathy noted Chest Chest: normal inspection of the chest and no tenderness Resp Effort & Inspection: normal respiratory effort and able to speak in complete sentences Auscultation: clear to auscultation bilaterally Cardio Rate: regular rate Rhythm: regular rhythm GI Inspection: normal to inspection and obesity Palpation: soft, not firm, not rigid and nontender Auscultation: normal bowel sounds Skin General skin exam: no rashes or lesions noted Neuro General: patient alert, patient awake and patient oriented x3 Cognition: normal cognition Speech: speech normal Motor: muscle tone normal throughout Sensory Exam: no sensory deficits noted Extrem General: normal to inspection, full ROM, capillary refill normal, no calf tenderness bilaterally and no edema Psych Appearance: grossly normal Mental Status: mental status grossly normal Speech and Movement: speech and movement normal Affect: normal affect Course Vital Signs Vital signs: Vital Signs Temperature 97.9 F 12/26/20 12:28 Pulse 63 12/26/20 12:28 Respiratory Rate 16 12/26/20 12:28 Blood Pressure 131/49 L 12/26/20 12:28 Pulse Oximetry 97 12/26/20 12:28 Temperature 97.9 F 12/26/20 12:28 Temperature Source Tympanic 12/26/20 12:28 Pulse 63 12/26/20 12:28 Respiratory Rate 16 12/26/20 12:28 Respiratory Effort Non-Labored 12/26/20 12:34 Blood Pressure 131/49 L 12/26/20 12:28 Blood Pressure Position Sitting 12/26/20 12:28 Pulse Oximetry 97 12/26/20 12:28 Oxygen Delivery Method Room Air 12/26/20 12:28 Oxygen Flow Rate 0 12/26/20 12:28 Pain Level 2 12/26/20 12:28
[2020-12-26 12:48] LABS: Abs Immature Grans 0.04 10^3/uL (0.0-0.06); Absolute Basophil Count 0.04 10^3/uL (0.0-0.2); Absolute Eosinophil Count 0.32 10^3/uL (0.0-0.7); Absolute Lymphocyte Count 2.64 10^3/uL (1.2-3.4); Absolute Monocyte Count 0.85 10^3/uL (0.1-0.8); Absolute Neutrophil Count 4.85 10^3/uL (1.2-6.7); Basophils % 0.5; Eosinophils % 3.7; HCT 37.2 % (36.0-46.0); HGB 12.3 g/dL (11.2-15.7); Immature Grans % 0.5; Lymphocytes % 30.2; MCH 30.4 pg (27.0-33.0); MCHC 33.1 % (32.0-36.0); MCV 91.9 fL (80-95); MPV 9.4 fL (8.0-11.0); Monocytes % 9.7; Neutrophils % 55.4; Nucleated RBC 0 %; Platelet Count 257 10^3/uL (130-400); RBC 4.05 10^6/uL (3.93-5.22); RDW 13.2 % (11.7-14.6); RDW-SD 45.1 fL; WBC 8.74 10^3/uL (4.4-10.8)
[2020-12-26 13:07] LABS: ALT 27 U/L (14-59); AST 23 U/L (15-37); Albumin 3.5 g/dL (3.4-5.0); Alkaline Phosphatase 82 U/L (46-116); Anion Gap 9.4 mmol/L (3-11); BUN 11 mg/dL (7-18); Bilirubin, Total 0.3 mg/dL (0.2-1.0); CO2 24.6 mmol/L (21.0-32.0); CREATININE 0.7 mg/dL (0.55-1.02); Chloride 104 mmol/L (98-107); Glucose 160 mg/dL (74-106); Magnesium 1.9 mg/dL (1.8-2.4); Potassium 4.2 mmol/L (3.5-5.1); Sodium 138 mmol/L (136-145); Total Protein 7.6 g/dL (6.4-8.2)
[2020-12-26 13:09] LABS: Troponin I < 0.05 ng/mL (<0.06)
[2020-12-26 13:13] LABS: NT-proBNP 235 pg/mL (<300)
--- NOTE | 2020-12-26 13:30 | DI.CT_ITS ---
Exam(s) CT THORAX CTA EXAM: CT THORAX CTA CLINICAL HISTORY: L sided chest pain, r/o dissection. TECHNIQUE: Imaging Protocol: Axial CT angiography was performed with multi-slice acquisition and mu lti-planar and/or 3D reconstructions. CONTRAST MATERIAL: Intravenous: Omnipaque 350 Contrast volume:100 mL COMPARISON: CT CT CHEST PE CTA from 09/23/2020 FINDINGS: Tracheobronchial tree: Patent where visualized. Pulmonary parenchyma: No new pulmonary nodules are seen. The small area of atelectasis or scarring i n the left lingula. Pulmonary Arteries: No evidence of filling defect to suggest pulmonary emboli. Mediastinum and Ronel: No dominant adenopathy or fluid collection. Visualized thyroid gland: There is a 0.4 cm round hypodense nodule in the right lobe of the thyroid g land. No associated suspicious findings are seen. No follow-up is recommended. Pleura: No effusion or pneumothorax. Heart: Mild cardiomegaly. Moderate coronary artery calcification. No pericardial effusion. Aorta: Thoracic aorta non-dilated. Atherosclerosis. No evidence of dissection. Upper abdomen: Unremarkable. Soft tissues: Unremarkable. Bones: Within normal limits for the patient's age.Status post sternotomy. IMPRESSION: 1. No evidence of pulmonary embolism, thoracic aortic dissection or aneurysm. 2. Results of this exam have been verbally communicated with provider. RADIATION DOSE DELIVERED: 562.76mGy.cm Total DLP 562.76mGy.cm Total DLP DATA REPOSITORY: All CT scans at this facility are submitted to the National Radiology Data Registry (NRDR) Dose Index Registry (DIR) with the [employer] ([employer]). RADIATION OPTIMIZATION: All CT scans at this facility use at least one of these dose optimization te chniques: automated exposure control; mA and/or kV adjustment per patient size (includes targeted exa ms where dose is matched to clinical indication); or iterative reconstruction.
[2020-12-26] MEDS: Omnipaque 350 MG/ML 100 ML BTL IJ (15:08)
[2020-12-26] MEDS: Normal Saline Flush 10 ML SYR IVP (15:09)
[2020-12-26] MEDS: Normal Saline - Diluent 50 ML VIAL IV (15:09)
--- NOTE | 2020-12-26 15:30 | RT.EKG_ITS ---
APPROVED REPORT Exam: Resting ECG Reason for Exam: chest pain Patient Location: E HR:65 bpm ECG Measurements Heart Rate 65 AXIS OR 184 P 57 QRSd 102 QRS -15 QT 423 T 76 QTc 441 Conclusion Sinus rhythm...normal P axis, V-rate 60- 99 Low voltage, precordial leads...precordial leads <1.0mV No STEMI. I have reviewed and interpreted ECG and agree with software generated interpretation.
[2020-12-26 16:08] LABS: Troponin I < 0.05 ng/mL (<0.06)
--- NOTE | 2020-12-26 16:26 | NUR.NOTE ---
meal tray provided for pt Nursing Note:
[2020-12-26 17:52] LABS: Source Nasal/Nares
[2020-12-26 18:49] LABS: COVID-19 PCR Negative (Negative)
[2020-12-26 21:04] LABS: Troponin I < 0.05 ng/mL (<0.06)
[2020-12-26] MEDS: Furosemide 40 MG TAB PO (21:12)
[2020-12-26] MEDS: lamoTRIgine 25 MG TAB PO (21:12)
[2020-12-26] MEDS: Potassium Chloride 10 MEQ CAPCR PO (21:12)
[2020-12-26] MEDS: Enoxaparin 40 MG/0.4 ML SYR SC (21:12)
[2020-12-26] MEDS: lamoTRIgine 100 MG TAB PO (21:12)
[2020-12-26] MEDS: Aspirin 325 MG TAB PO (21:30)
[2020-12-26] MEDS: Metoprolol CR 50 MG TABCR PO (21:46)
[2020-12-26] MEDS: Pantoprazole 40 MG TABCR PO (21:46)
[2020-12-26] MEDS: Magnesium Lactate-SR 84 MG TABCR PO (21:46)
[2020-12-26] MEDS: Isosorbide Mononitrate 30 MG TABCR 60 MG PO (21:46)
--- NOTE | 2020-12-26 22:26 | W.PM.HP.N ---
Date of service: 12/26/20 Time of Service: 20:26 Assessment and Plan Assessment and plan (1) Chest pain, rule out acute myocardial infarction: Status: Acute Assessment and plan: Concern for unstable angina given classic symptoms that started while on treadmill but now persistent. Troponins and EKGs not constistent with NSTEMI. No evidene of PE, dissection, or other acute lung pathology on CT. Case reviewed with [facility] cardiology who recommended monitoring overnight with serial troponins, ETT/MPI in the morning. (2) Ischemic cardiomyopathy: Status: Acute Assessment and plan: No evidence on exam of active CHF. BNaP not impressive. Continue outpatient medical management. (3) Coronary atherosclerosis: Status: Acute Assessment and plan: continue on ASA and high intensity statin Qualifiers: Coronary Disease-Associated Artery/Lesion type: [place] artery [place] vs. transplanted heart: [place] heart Associated angina: without angina Qualified Code(s): I25.10 - Atherosclerotic heart disease of [place] coronary artery without angina pectoris (4) Tobacco abuse: Status: Acute Assessment and plan: She is motivated to quit, but is motivated to quit. We discussed medical options but she is hesitant with her psychiatric disease. Will increase patch dose as these are helping. (5) Bipolar 1 disorder: Status: Acute Assessment and plan: stable/well controlled, continue lamotrigine and citalopram. No evidence that this is contributing to her presentation (6) Diabetes mellitus type 2, controlled: Status: Acute Assessment and plan: reasonable control as outpatient with last A1c 7.4 in September 2020 in [facility] on just basal insulin. 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 (7) DVT prophylaxis: Status: Acute Assessment and plan: LMWH (8) Discharge planning issues: Status: Acute Assessment and plan: Pending ETT results tomorrow. Full Code History of Present Illness History of Present Illness Chief Complaint: chest pain Narrative: 65 yo F with CAD s/p CABG in 2015 and h/o CHF, mitral insuffiency s/p clip in 06/2019, smoker, presented with left sided chest pain while on the treadmill at cardiac rehab. Pain was substernal pressure, radiating to the left neck, constant, mild, persisted despite stopping her exercise. No radiation down the arms. Cardiology was called and EKG showed only <1mm ST depression. ED evaluation was recommended but she declined and went home. After sleeping, her pain was still continuously present. It was worse with activity. With her chest pressure she feels somewhat lightheaded, and some mild SOB, and nausea, but no palpitations. She then presented to the ED. Since presenting to the ED the pain has resolved, though she doesn't think any intervention clearly caused it to go away. She was admitted for chest pain and CHF exacerbation in September 2020 and was transfered to [facility]. Her echocardiogram showed stable valvular function and LVEF of 45% and her cardiac catheterization was unremarkable. Review of Systems Constitutional Constitutional: Denies anorexia, Denies chills, Denies fever(s), Reports headache(s) (mild), Denies lethargy, Denies weakness, Denies weight gain and Denies weight loss Eyes Eyes: Denies change in vision, Denies irritation and Denies loss of vision ENT Ears, Nose, Mouth, and Throat: Denies dental pain, Denies vertigo, Reports dizziness (lightheaded), Reports headache(s) (mild), Denies nasal congestion, Denies nasal discharge and Denies sore throat Cardiovascular Cardiovascular: Reports as per HPI, Denies leg edema, Denies palpitations and Denies orthopnea Respiratory Respiratory: Reports as per HPI, Denies cough, Denies hemoptysis, Denies excessive phlegm production and Denies wheezing Gastrointestinal Gastrointestinal: Denies abdominal pain, Denies constipation, Denies heartburn, Denies diarrhea and Denies vomiting Genitourinary Genitourinary: Denies hematuria, Denies dysuria and Denies urinary incontinence Musculoskeletal Musculoskeletal: Reports arthralgias (just hand arthritis) Integumentary/Breasts Skin/Breast: Denies rash, Denies skin ulcer and Reports sores (small cut on right armijo) Neurologic Neurologic: Denies confusion, Denies vertigo, Reports dizziness (lightheaded), Reports headache(s) (mild), Denies localized weakness, Denies loss of vision, Denies sensory deficit and Denies weakness Psychiatric Psychiatric: Denies confusion, Denies mood swings and Denies panic attacks Endocrine Endocrine: Denies palpitations Hematologic/Lymphatic Hematologic/Lymphatic: Denies easy bleeding Allergic/Immunologic Allergic/Immunologic: Denies wheezing [facility] Medical History (Updated 12/26/20 @ 22:53 by Rashad Ivey) Bipolar 1 disorder CHF (congestive heart failure) Diabetes Fibromyalgia GERD (gastroesophageal reflux disease) Hypertension Ischemic cardiomyopathy Sleep apnea Tobacco abuse Surgical History (Updated 12/26/20 @ 22:55 by Rashad Ivey) Hx of CABG 2016 S/P mitral valve clip implantation Status post carpal tunnel release of both wrists Social History (Updated 12/26/20 @ 22:56 by Rashad Ivey) Smoking/Tobacco Use Status: Current every day Tobacco Type: cigarettes Quit status: considering quitting Smoking risk assessment performed?: Yes Drug use: Never Substance use type: does not use What type of physical activity do you participate in: other Details: cardiac rehab Do you feel safe at home: Yes Do you feel safe in your relationship?: Yes Additional Social history: Lives with her adult son. 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 History History Para 4 Hx # Term Pregnancies Multiple births Hx # Pregnancies Ectopic pregnancies AB induced Hx Number of Living Children AB spontaneous Meds Allergies and Home Medications Allergies Allergy/AdvReac Type Severity Reaction Status Date / Time ibuprofen AdvReac Severe severe Verified 12/26/20 12:35 vomiting Home Medications Medication Instructions Recorded Confirmed Type lamotrigine [Lamictal] 1 tab PO BID 04/08/14 12/26/20 History nitroglycerin [Nitrostat] 0.4 mg SUBLINGUAL Q5 MIN PRN X3 07/01/15 12/26/20 Rx PRN #15 tab aspirin [Adult Low Dose Aspirin] 81 mg PO DAILY #30 tab-cap 05/29/16 12/26/20 History rosuvastatin [Crestor] 40 mg PO QPM 01/03/18 12/26/20 History multivitamin [Daily Multi-Vitamin] 1 tab DAILY 01/04/18 12/26/20 History vitamin B complex [B-Complex] 1 tab PO DAILY 01/04/18 12/26/20 History alprazolam 0.5 mg PO PRN PRN 11/05/18 12/26/20 History citalopram 20 mg PO DAILY 11/05/18 12/26/20 History Narcan 4 mg PRN PRN 11/21/18 12/26/20 History lamotrigine 25 mg tablet 25 mg PO DAILY tab 12/23/18 12/26/20 History magnesium L-lactate 84 mg 84 mg PO DAILY 12/23/18 12/26/20 History tablet,extended release nicotine 14 mg/24 hr daily 1 patch TD DAILY 12/23/18 12/26/20 History transdermal patch pantoprazole 40 mg tablet,delayed 40 mg PO DAILY 04/07/19 12/26/20 History release insulin glargine 100 unit/mL 55 unit SUBCUT DAILY ml 10/06/19 12/26/20 History subcutaneous solution cholecalciferol (vitamin D3) 1,000 unit PO DAILY 09/23/20 12/26/20 History potassium chloride 10 meq PO BID 09/23/20 12/26/20 History furosemide 40 mg tablet 40 mg PO BID tab 10/07/20 12/26/20 History isosorbide mononitrate 30 mg 60 mg PO DAILY tab 10/07/20 12/26/20 History tablet,extended release 24 hr lisinopril 10 mg tablet 20 mg PO DAILY #90 tab-cap 10/07/20 12/26/20 History metoprolol succinate 50 mg 50 mg PO DAILY tab 10/07/20 12/26/20 History tablet,extended release 24 hr Exam Narrative Exam Narrative: GEN: Alert and oriented, pleasent and cooperative, gives linear history. No acute distress at rest. HEENT: Head atraumatic. Conjunctiva clear, no icterus. PEERL, EOMI. no rhinorrhea. MMM, OP benign. Dentures. Neck is supple with no masses or lymphadenopathy, trachea midline LUNGS: CTAB with normal effort CV: RRR, nl S1/S2 with no murmurs, gallops, or rubs. 2+ ileana pedal and carotid pulses. no elevation of JVP ABD: +BS, soft, NT/ND EXT: no cyanosis, clubbing, or edema. non tender in legs/calves MSK: No joint redness or swelling NEURO: CN 2-12 grossly intact. Normal movement of 4 extremities. Normal speech and coordination SKIN: No rashs or open wounds x healing 1cm abrasion with mild surrounding erythema right armijo PSYCH: normal mood and affect, normal thought process Results Imaging CT scan - chest: report reviewed ( No evidence of pulmonary embolism, thoracic aortic dissection or aneurysm.) EKG: report reviewed and image reviewed (NSR, no ST-T abnormalities) Labs Result diagrams: 12/26/20 12:39 12/26/20 12:39 Labs: Laboratory Results - last 24 hr 12/26/20 12/26/20 12/26/20 12:39 12:39 12:39 WBC 8.74 RBC 4.05 Hgb 12.3 Hct 37.2 MCV 91.9 MCH 30.4 MCHC 33.1 RDW 13.2 Plt Count 257 MPV 9.4 Immature Gran % 0.5 Neutrophils % 55.4 Lymphocytes % 30.2 Monocytes % 9.7 Eosinophils % 3.7 Basophils % 0.5 Nucleated RBC % 0 Absolute Neutrophils 4.85 Absolute Lymphocytes 2.64 Absolute Monocytes 0.85 H Absolute Eosinophils 0.32 Absolute Basophils 0.04 Sodium 138 Potassium 4.2 Chloride 104 Carbon Dioxide 24.6 Anion Gap 9.4 BUN 11 Creatinine 0.7 Estimated GFR/1.73 m2 >= 60.00 Glucose 160 H Calcium 9.0 Magnesium 1.9 Total Bilirubin 0.3 AST 23 ALT 27 Alkaline Phosphatase 82 Troponin I < 0.05 NT-Pro-B Natriuret Pep 235 Total Protein 7.6 Albumin 3.5 COVID-19 Source SARS-CoV-2 (PCR) 12/26/20 12/26/20 12/26/20 13:30 17:45 20:35 WBC RBC Hgb Hct MCV MCH MCHC RDW Plt Count MPV Immature Gran % Neutrophils % Lymphocytes % Monocytes % Eosinophils % Basophils % Nucleated RBC % Absolute Neutrophils Absolute Lymphocytes Absolute Monocytes Absolute Eosinophils Absolute Basophils Sodium Potassium Chloride Carbon Dioxide Anion Gap BUN Creatinine Estimated GFR/1.73 m2 Glucose Calcium Magnesium Total Bilirubin AST ALT Alkaline Phosphatase Troponin I < 0.05 < 0.05 NT-Pro-B Natriuret Pep Total Protein Albumin COVID-19 Source Nasal/Nares SARS-CoV-2 (PCR) Negative Last Vital Signs Temp 36.7 C 12/26/20 19:09 Pulse 70 12/26/20 20:28 Resp 18 12/26/20 20:28 BP 108/46 L 12/26/20 20:28 Pulse Ox 95 12/26/20 20:01
[2020-12-27] VITALS (15 sets, daily range): BP systolic 101–108; BP diastolic 43–49; PULSE 57–70; RESP 10–18; TEMP 36.5–36.6; O2SAT 97–98
--- NOTE | 2020-12-27 | DI.US_ITS ---
APPROVED REPORT EXAM: Comprehensive 2D, Doppler, and color-flow Echocardiogram Patient Location: In-Patient Jet Handler: Nasrin Escamilla RDCS (AE) Indications: Chest pain, H/O Mitral valve clip Other Information Study Quality: Adequate Conclusion Borderline dilated left ventricle. Estimated ejection fraction is 50 to 55%, global hypokinesis. Normal right ventricular size and systolic function Both atria are normal in size Trileaflet aortic valve with moderate regurgitation Patient is status post mitral valve repair with an annuloplasty ring. There is mild to moderate mitr al regurgitation Normal tricuspid valve with moderate regurgitation. Unable to estimate right ventricular systolic pr essure Normal pulmonic valve with mild regurgitation Impaired to an echocardiogram from September 2020 performed at [facility] the degree of aortic regurgitation is now moderate, previously mild to moderate Wall motion Left Ventricle Left ventricle is mildly dilated. Left ventricular systolic function is mildly decreased. There is no rmal left ventricular wall thickness. There is global hypokinesis of the left ventricle. There is no ventricular septal defect visualized. LVEF is 53%. Right Ventricle The right ventricle is normal size. Right ventricular systolic function is grossly normal. The RVSP i s 34.9 mmHg. Atria The left atrium size is normal. The right atrium size is normal. The interatrial septum is intact wit h no evidence for an atrial septal defect. Aortic Valve The aortic valve is normal in structure. Aortic valve is trileaflet. There is no aortic valvular sten osis. Moderate aortic regurgitation. Mitral Valve No evidence of mitral valve stenosis. Mild to moderate mitral regurgitation. Annuloplasty ring is not ed in the mitral position. Tricuspid Valve The tricuspid valve is normal in structure. There is no tricuspid valve stenosis. Moderate tricuspid regurgitation. Pulmonic Valve The pulmonary valve is normal in structure. There is no pulmonic valvular stenosis. Trace pulmonic re gurgitation. Great Vessels The aortic root is normal in size. Aortic arch is not well visualized. IVC is normal in size and taqueria apses >50% with inspiration. Pericardium There is no pericardial effusion. 2D Dimensions IVSD d PLAX 0.85 cm F: 0.6-1.0 LV Vol A2C d MOD 147.1 mL LVPW d PLAX 0.85 cm F: 0.6 - 1.0 LV Vol A4C d MOD 139.4 mL LVID d PLAX 5.41 cm F: 3.8 - 5.2 LA vol/ BSA A2C s A-L 29.5 mL/m2 LVDs 3.85 cm F: 2.2 - 3.5 LA vol/ BSA A4C s A-L 30.0 mL/m2 Ao Root d 2.91 cm F: 2.7 - 3.3 LA Vol/ BSA Biplane s A-L 32.8 mL/m2 RA Area A4C 16.86 cm2 LA Area A4C s MOD 19.47 cm2 RA Vol/ BSA A4C s A-L 26.5 mL/m2 LA Area A2C s MOD 17.46 cm2 LV EF Teichholz 54.1 % LV EF A4C MOD 52.4 % LVEF (Esquivel's) 53.34 % F: 54 - 74 LV EF A2C MOD 53.8 % LV Volume 114.64 mL F: 46 - 106 LV EF Biplane MOD 53.3 % LV Volume Index 61.96 mL/m2 F: 29 - 61 SV 79.50 mL LV Vol Biplane MOD 149.0 mL SV Index 42.79 mL/m2 FS 28.25 % M-Mode TAPSE 1.57 cm (M/F) >1.7 LV Diastology MV E' medial 0.042 (>0.07 m/s) E/A Ratio 1.2 LV E/e MED 48.85 (<14) MV E Vmax 2.03 (0.4-1.3 m/s) MV E' lateral 0.063 (>0.1 m/s) MV A Vmax 1.70 (0.4-1.3 m/s) LV E/e LAT 32.35 (<14) MV E/A Ratio 1.16 MV E/E' medial 48.89 MV E/E' lateral 32.38 Aortic Valve LVOT Area 2.89 cm2 AoV Area Vmax 2.21 cm2 LVOT Vmax 1.20 m/s AoV Area/ BSA (Vmax) 1.19 cm2/m2 LVOT Mean Oumar. 0.87 m/s DARRICK Mean Oumar. 2.28 cm2 LVOT Peak Grad 5.7 mmHg DARRICK Mean Oumar. Index 1.23 cm2/m2 LVOT Mean Grad 3.3 mmHg AR DT 1407 msec LVOT VTI 0.260 m AR PHT 408 msec LVOT Diam s 1.90 cm AoV Vmax 1.56 m/s Velocity Ratio 0.76 AoV Mean Oumar. 1.10 m/s AoV Peak Grad 9.8 mmHg LVOT SV 75.03 mL AoV Mean Grad 5.3 mmHg AoV VTI 0.337 m AoV Area VTI 2.22 cm2 AoV Area/ BSA (VTI) 1.20 cm/m2 Mitral Valve MV DT 510 (160-240 msec) MR Vmax 3.94 m/s MV PHT 148 msec MR VTI 1.219 m MV Area PHT 1.49 cm2 MR Peak Grad 62.2 mmHg MV VTI 0.898 m MR Mean Grad 42.7 mmHg MV VTI Annulus 0.877 m MV Area VTI 0.82 (4.0-6.0 cm2) Pulmonary Valve PV Vmax 1.10 (0.5-1.5 m/s) RVOT Peak Gr. 2.95 mmHg PV Peak Grad 4.8 mmHg RVOT Mean Gr. 1.60 mmHg PV Mean Grad 2.3 mmHg RVOT VTI 0.188 m PV VTI 0.196 m RVOT Vmax 0.86 m/s Tricuspid Valve TR Peak Grad 31.8 mmHg TR Vmax 2.82 m/s RA Pressure 3.00 mmHg RVSP (TR) 34.9 mmHg
[2020-12-27 07:22] LABS: Anion Gap 4.9 mmol/L (3-11); BUN 14 mg/dL (7-18); CO2 29.1 mmol/L (21.0-32.0); CREATININE 0.8 mg/dL (0.55-1.02); Calcium 8.8 mg/dL (8.5-10.1); Chloride 106 mmol/L (98-107); Glucose 194 mg/dL (74-106); Potassium 4.3 mmol/L (3.5-5.1); Sodium 140 mmol/L (136-145)
[2020-12-27 07:24] LABS: Hemoglobin A1C 8.2 % (<5.7)
--- NOTE | 2020-12-27 08:30 | W.PM.PROGNOT ---
Date of Service Date of service: 12/27/20 Time of Service: 16:15 Subjective Subjective Interval history since last seen: Ms Campos states she would rather go home today and get an outpatient stress test. Stable. No CP overnight. ?MPI today. ?home today. Objective Last Vital Signs Temp 36.5 C 12/27/20 06:55 Pulse 64 12/27/20 06:55 Resp 18 12/27/20 06:55 BP 101/49 L 12/27/20 06:55 Pulse Ox 97 12/27/20 06:55 Laboratory Results - last 24 hr 12/26/20 12/26/20 12/26/20 12:39 12:39 12:39 WBC 8.74 RBC 4.05 Hgb 12.3 Hct 37.2 MCV 91.9 MCH 30.4 MCHC 33.1 RDW 13.2 Plt Count 257 MPV 9.4 Immature Gran % 0.5 Neutrophils % 55.4 Lymphocytes % 30.2 Monocytes % 9.7 Eosinophils % 3.7 Basophils % 0.5 Nucleated RBC % 0 Absolute Neutrophils 4.85 Absolute Lymphocytes 2.64 Absolute Monocytes 0.85 H Absolute Eosinophils 0.32 Absolute Basophils 0.04 Sodium 138 Potassium 4.2 Chloride 104 Carbon Dioxide 24.6 Anion Gap 9.4 BUN 11 Creatinine 0.7 Estimated GFR/1.73 m2 >= 60.00 Glucose 160 H Hemoglobin A1c Calcium 9.0 Magnesium 1.9 Total Bilirubin 0.3 AST 23 ALT 27 Alkaline Phosphatase 82 Troponin I < 0.05 NT-Pro-B Natriuret Pep 235 Total Protein 7.6 Albumin 3.5 COVID-19 Source SARS-CoV-2 (PCR) 12/26/20 12/26/20 12/26/20 13:30 17:45 20:35 WBC RBC Hgb Hct MCV MCH MCHC RDW Plt Count MPV Immature Gran % Neutrophils % Lymphocytes % Monocytes % Eosinophils % Basophils % Nucleated RBC % Absolute Neutrophils Absolute Lymphocytes Absolute Monocytes Absolute Eosinophils Absolute Basophils Sodium Potassium Chloride Carbon Dioxide Anion Gap BUN Creatinine Estimated GFR/1.73 m2 Glucose Hemoglobin A1c Calcium Magnesium Total Bilirubin AST ALT Alkaline Phosphatase Troponin I < 0.05 < 0.05 NT-Pro-B Natriuret Pep Total Protein Albumin COVID-19 Source Nasal/Nares SARS-CoV-2 (PCR) Negative 12/27/20 12/27/20 06:20 06:20 WBC RBC Hgb Hct MCV MCH MCHC RDW Plt Count MPV Immature Gran % Neutrophils % Lymphocytes % Monocytes % Eosinophils % Basophils % Nucleated RBC % Absolute Neutrophils Absolute Lymphocytes Absolute Monocytes Absolute Eosinophils Absolute Basophils Sodium 140 Potassium 4.3 Chloride 106 Carbon Dioxide 29.1 Anion Gap 4.9 BUN 14 Creatinine 0.8 Estimated GFR/1.73 m2 >= 60.00 Glucose 194 H Hemoglobin A1c 8.2 H Calcium 8.8 Magnesium Total Bilirubin AST ALT Alkaline Phosphatase Troponin I NT-Pro-B Natriuret Pep Total Protein Albumin COVID-19 Source SARS-CoV-2 (PCR)
[2020-12-27] MEDS: Insulin Aspart 300 UNITS/3 ML PEN SC (08:40)
[2020-12-27] MEDS: Insulin Glargine 300 UNITS/3 ML PEN 55 UNITS SC (08:43)
[2020-12-27] MEDS: Cholecalciferol (Vitamin D3) 1,000 UNIT TAB 1000 UNITS PO (08:45)
[2020-12-27] MEDS: Citalopram 20 MG TAB PO (08:45)
[2020-12-27] MEDS: Aspirin E.C. 81 MG TABEC PO (08:45)
[2020-12-27] MEDS: lamoTRIgine 100 MG TAB PO (08:46)
[2020-12-27] MEDS: lamoTRIgine 25 MG TAB PO (08:46)
[2020-12-27] MEDS: Furosemide 40 MG TAB PO ×2 (08:46→17:12)
[2020-12-27] MEDS: Lisinopril 10 MG TAB 20 MG PO (08:47)
[2020-12-27] MEDS: Multivitamin TAB 1 TAB PO (08:47)
[2020-12-27] MEDS: Potassium Chloride 10 MEQ CAPCR PO (08:48)
[2020-12-27] MEDS: Vitamins B Comp w/C TAB 1 TAB PO (08:48)
[2020-12-27] MEDS: Nicotine 21 MG/24 HR PATCH TD (08:48)
--- NOTE | 2020-12-27 09:07 | PDOC.CMIN ---
- If Service Date Differs Date of service: 12/27/20 Time of Service: 09:07 Care Management Initial Assess REASON FOR HOSPITALIZATION:: Chest pain r/o ACS PAST MEDICAL HISTORY/PAST SURGICAL HISTORY:: Medical History (Updated 12/26/20 @ 22:53 by Rashad Ivey). Bipolar 1 disorder. CHF (congestive heart failure). Diabetes. Fibromyalgia. GERD (gastroesophageal reflux disease). Hypertension. Ischemic cardiomyopathy. Sleep apnea. Tobacco abuse. Surgical History (Updated 12/26/20 @ 22:55 by Rashad Ivey). Hx of CABG. 2016. S/P mitral valve clip implantation. Status post carpal tunnel release of both wrists PREVIOUS FUNCTIONAL STATUS/SOCIAL/FAMILY SUPPORTS:: Yas lives in [place] with her son Hamlet. She is disabled due to chronic medical issues. Yas is independent at baseline and enjoys sewing and going online in her spare time. CURRENT FUNCTIONAL STATUS:: Yas was sitting up in bed when CM met with her. She was pleasant and easily engaged in conversation. Yas shared that she is just waiting to find out if a stress test will be available inpatient or if she will need to obtain as an outpatient? Yas reports that she wants to go home today and denies chest pain, pressure or shortness of breath during her admission. ADVANCE DIRECTIVES:: Has previously completed, not on file Has patient been provided with info about the portal/API?: Yes Did the patient sign up for the portal?: No CODE STATUS:: Full Code INSURANCE COVERAGE / FINANCIAL ISSUES:: Medicare/C&S Admin SER C CURRENT HOME/COMMUNITY SERVICES/EQUIPMENT:: None PRIMARY CARE PHYSICIAN:: Dr. Con Gardner POTENTIAL DISCHARGE NEEDS:: Discharge home via private vehicle when medically cleared, follow up with outpatient providers and discharge plans. PATIENT/FAMILY EDUCATION NEEDS:: Review discharge instructions, recommended testing and plan to follow up with outpatient providers, ask me three. ANTICIPATED BARRIERS TO DISCHARGE:: None identified TRANSPORTATION:: Via private vehicle PLAN:: Discharge home via private vehicle when medically cleared, follow up with outpatient providers and discharge plans.
--- NOTE | 2020-12-27 10:25 | W.INDIABCONS ---
Date of service: 12/27/20 Time of Service: 10:25 Diabetes Inpatient Consult DESCRIPTION/ASSESSMENT: 65 year old female admitted with chest pain with long standing hx of obesity, tobacco use, bipolar disorder, DM2. Most recent A1C: 8.2% indicating frequent glycemic excursions. Current DM meds- glargine 55 u qd. Would benefit from SGLT2 or GLP1 for improved glycemic control. Following diabetic diet with adequate intake. PLAN: continue current meal plan recommend adding SGLP1 or GLP1 to DM home meds for improved glycemic control Time Spent in Nutritional Counseling and Treatment: 0
--- NOTE | 2020-12-27 16:17 | W.PM.DS.N ---
Date of service: 12/27/20 Time of Service: 16:17 DS: Diagnosis Discharge Diagnosis (1) Chest pain, rule out acute myocardial infarction: Status: Acute (2) Ischemic cardiomyopathy: Status: Chronic (3) Coronary atherosclerosis: Status: Acute (4) Tobacco abuse: Status: Acute (5) Bipolar 1 disorder: Status: Acute (6) Diabetes mellitus type 2, controlled: Status: Acute (7) COVID-19 ruled out by laboratory testing: Status: Ruled-out Discharge Plan Disposition Patient Disposition: HOME Condition: Stable Discharge Details Reason For Visit: Chest pain r/o acs, H/o CABG/coronary stent Admit Date/Time: 12/26/20 17:25 Admit Provider: Rashad Ivey Attending Provider: Rashad Ivey Primary Care Provider: Con Gardner Hospital Course Hospital Course: Ms Campos is a 65 year old female with PMHx of CAD s/p CABG in 2015, h/o ICMO/CHF, mitral regurgitation s/p clip in 06/2019, who presented to [facility] ED c/o CP which started during exercise at cardiac rehab about 36 hrs prior to presentation. The patient had negative troponins. Her EKGs did not show acute ischemia. CTA ruled out PE/dissection. Cardiology at [facility] was consulted recommended an MPI, which is not available until next week. Her imdur was increased to 60 mg QHS. Echocardiogram showed LVEF of 50-55%, global hypokinesis, Mild to moderate mitral regurgitation, RVSP of 34.9 mmHg. At this point, the patient is chest pain free and would like to follow for MPI as outpatient. The patient is told to return to the ED with any more chest pain, to have nitroglycerin on her at all times. She is asked to call [facility] for a sooner cardiology follow-up appointment. 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 Patient verbalizes understanding. Home Meds and New Rx's Prescriptions: New isosorbide mononitrate 30 mg Tablet Extended Release 24 Hr 60 mg PO HS Qty: 60 RF: 0 Continued nicotine [Nicoderm CQ] 14 mg/24 hr patch 24 hour 1 patch TD DAILY RF: 0 magnesium L-lactate 84 mg tablet extended release 84 mg PO DAILY RF: 0 pantoprazole 40 mg tablet,delayed release (DR/EC) 40 mg PO DAILY RF: 0 aspirin [Adult Low Dose Aspirin] 81 MG tablet,delayed release (DR/EC) 81 mg PO DAILY Qty: 30 RF: 6 lisinopril [Prinivil] 10 mg tablet 20 mg PO DAILY Qty: 90 RF: 4 lamotrigine [Lamictal] 100 MG tablet 1 tab PO BID RF: 0 nitroglycerin [Nitrostat] 0.4 MG tablet, sublingual 0.4 mg Sublingual Q5 MIN PRN X3 PRN (Reason: Chest Pain) Qty: 15 RF: 0 potassium chloride 10 mEq capsule, extended release 10 meq PO BID RF: 0 cholecalciferol (vitamin D3) 25 mcg (1,000 unit) Capsule 1,000 unit PO DAILY RF: 0 rosuvastatin [Crestor] 40 MG tablet 40 mg PO QPM RF: 0 multivitamin [Daily Multi-Vitamin] 1 EACH tablet 1 tab DAILY RF: 0 vitamin B complex [B-Complex] 1 EACH tablet 1 tab PO DAILY RF: 0 alprazolam 0.5 mg Tablet 0.5 mg PO PRN PRNRF: 0 citalopram 20 mg Tablet 20 mg PO DAILY RF: 0 Lantus U-100 Insulin 100 unit/mL solution 55 unit subcut DAILY RF: 0 Narcan 4 mg/actuation Flomot,Non-Aerosol 4 mg PRN PRNRF: 0 clopidogrel 75 mg tablet 75 mg PO DAILY RF: 0 lamotrigine 25 mg tablet 25 mg PO BID RF: 0 furosemide 40 mg tablet 40 mg PO QAM RF: 0 furosemide 20 mg tablet 20 mg PO QPM RF: 0 metoprolol succinate 50 mg tablet extended release 24 hr 75 mg PO DAILY RF: 0 Discontinued isosorbide mononitrate 30 mg tablet extended release 24 hr 30 mg PO DAILY RF: 0 Discharge Instructions Instructions: Angina (DC) Additional Instructions: Return to the hospital with any fever, bleeding, chest pain, shortness of breath. Follow up with your PCP in 1-2 weeks. Follow up for your MPI. Follow up with [facility] cardiology. Referrals: CARDIOLOGY,[facility] [place] [OTHER] - Con Gardner MD [Primary Care Provider] - Activity:: Activity as Tolerated Equipment/Supplies:: No Equipment Needed Diet:: carb consistent heart healthy Discharge Orders Discharge Orders: Discharge Order (Routine); Ordered 12/27/20 Ordered By: Maira Jeter Other Ambulatory Orders: NM MPI rest & stress grp (Routine) Timeframe: 1 Week Facility: [facility] - Location: CARDIAC LAB Ordered By: Maira Jeter DS: Summary Time Spent with Patient providing and/or coordinating discharge services: Greater than 30 minutes Status at Discharge Functional status at discharge: independent ambulation Overall status at discharge: patient is back to baseline Mental Status: mental status grossly normal Speech and Movement: speech and movement normal Mood: congruent mood Affect: normal affect Exam Narrative Exam Narrative: General: Pleasant middle-aged female, A&OX3 HEENT: EOMI, MMM Heart: RRR, no m/r/g Lungs: CTAB Abdomen: soft, nontender, nondistneded Extremities: no edema BLE's Psych Mental Status: mental status grossly normal Speech and Movement: speech and movement normal Mood: congruent mood Affect: normal affect DS: Data Vitals/I&O Vitals and I&O: Vital Signs Temperature 36.5 C 12/27/20 06:55 Temperature Source Temporal Artery Scan 12/27/20 06:55 Pulse 66 12/27/20 09:02 Pulse Rhythm Regular 12/27/20 09:10 Pulse 64 12/27/20 09:02 Respiratory Rate 13 12/27/20 09:02 Respiratory Effort 12/27/20 09:10 Respiratory Depth Normal 12/27/20 09:10 Respiratory Pattern Normal 12/27/20 09:10 Blood Pressure 106/48 L 12/27/20 09:02 Blood Pressure Mean 62 12/27/20 09:02 Blood Pressure Position Sitting 12/26/20 12:28 Pulse Oximetry 97 12/27/20 09:02 Oxygen Delivery Method Room Air 12/27/20 06:55 Oxygen Flow Rate 0 12/27/20 06:55 Pain Level 0 12/27/20 06:55 Intake & Output 12/26/20 12/27/20 12/27/20 23:59 11:59 23:59 Intake Total 240 / 720 480 / 720 Output Total 1200 / 1200 Balance -960 / -480 480 / -480 Weight 82.9 kg Intake: Oral 240 / 720 480 / 720 Output: Urine 1200 / 1200 Other: Urine Color Yellow Urine Appearance Clear Urine Odor Normal Voiding Methods Bedside Commode Data Completed and Pending Completed studies during hospitalization [Text1]: CTA chest: 1. No evidence of pulmonary embolism, thoracic aortic dissection or aneurysm. 2. Results of this exam have been verbally communicated with provider. Echo: Borderline dilated left ventricle. Estimated ejection fraction is 50 to 55%, global hypokinesis. Normal right ventricular size and systolic function Both atria are normal in size Trileaflet aortic valve with moderate regurgitation Patient is status post mitral valve repair with an annuloplasty ring. There is mild to moderate mitral regurgitation Normal tricuspid valve with moderate regurgitation. Unable to estimate right ventricular systolic pressure Normal pulmonic valve with mild regurgitation Impaired to an echocardiogram from September 2020 performed at [facility] the degree of aortic regurgitation is now moderate, previously mild to moderate Labs on day of discharge: Labs from last 24 hours 12/27/20 12/27/20 12/26/20 06:20 06:20 20:35 Sodium 140 Potassium 4.3 Chloride 106 Carbon Dioxide 29.1 Anion Gap 4.9 BUN 14 Creatinine 0.8 Estimated GFR/1.73 m2 >= 60.00 Glucose 194 H Hemoglobin A1c 8.2 H Calcium 8.8 Troponin I < 0.05 COVID-19 Source SARS-CoV-2 (PCR) 12/26/20 17:45 Sodium Potassium Chloride Carbon Dioxide Anion Gap BUN Creatinine Estimated GFR/1.73 m2 Glucose Hemoglobin A1c Calcium Troponin I COVID-19 Source Nasal/Nares SARS-CoV-2 (PCR) Negative [facility] Medical History (Updated 12/27/20 @ 16:18 by Maira Jeter MD) Bipolar 1 disorder CHF (congestive heart failure) Diabetes Fibromyalgia GERD (gastroesophageal reflux disease) Hypertension Ischemic cardiomyopathy Sleep apnea Tobacco abuse Surgical History (Updated 12/26/20 @ 22:55 by Rashad Ivey) Hx of CABG 2016 S/P mitral valve clip implantation Status post carpal tunnel release of both wrists Social History (Updated 12/26/20 @ 22:56 by Rashad Ivey) Smoking/Tobacco Use Status: Current every day Tobacco Type: cigarettes Quit status: considering quitting Smoking risk assessment performed?: Yes Drug use: Never Substance use type: does not use What type of physical activity do you participate in: other Details: cardiac rehab Do you feel safe at home: Yes Do you feel safe in your relationship?: Yes Additional Social history: Lives with her adult son. 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
== END 2020-12-27 18:00 | disposition home or self-care (01) ==
LOC: ER 18:33 → ICU 18:37
PROVIDERS: Admitting Provider Family Medicine; Emergency Provider Physician Assistant; PCP Internal Medicine; Visit Provider Family Medicine
DX: R07.89 Other chest pain (principal); I25.5 Ischemic cardiomyopathy; I34.0 Nonrheumatic mitral (valve) insufficiency; I50.9 Heart failure, unspecified; I25.10 Atherosclerotic heart disease of native coronary artery without angina pectoris; Z20.822 Contact with and (suspected) exposure to COVID-19; F17.210 Nicotine dependence, cigarettes, uncomplicated; F31.9 Bipolar disorder, unspecified; E11.9 Type 2 diabetes mellitus without complications; Z95.1 Presence of aortocoronary bypass graft; M79.7 Fibromyalgia; G47.30 Sleep apnea, unspecified; K21.9 Gastro-esophageal reflux disease without esophagitis; Z79.4 Long term (current) use of insulin; Z79.82 Long term (current) use of aspirin
CPT/HCPCS: 36415; 36416; 71275; 80048; 80053; 82962; 87635; 93005; 99285; J1650; 83036; 83735; 83880; 84484; 85025; 93010; 93306; 99217; G0378; J1815; J3490

== ENCOUNTER → 2020-12-27 08:14 | Outpatient (BNVA) | payer MEDICARE, SELFPAY | PROVIDERS: PCP Internal Medicine; Referring Provider Internal Medicine; Visit Provider Internal Medicine Cardiovascular Disease | DX: R69 Illness, unspecified (principal) ==

== ENCOUNTER → 2021-01-07 03:04 | Outpatient (CLI) | payer MEDICARE, SELFPAY ==
--- NOTE | 2021-01-07 08:45 | DI.NM_ITS ---
APPROVED REPORT Exam: Exercise Treadmill Patient Location: Out-Patient Room/Bed: Stress Nurse: Cass Hutchinson RN Ordering Provider:IVY MARTIN, Contact Number: [phone] BMI: 32.91 Baseline Rhythm: Sinus Rhythm Indications: Chest pain Medical History Medical History: CHF, hyperlipidemia, hypertension, diabetes type II, obesity, tobacco use (current) Cardiac Medications: Aspirin, plavix, furosemide, insuline, isosorbide mononitrate, lisinopril, metop rolol succinate, nitroglycerin, pantoprazole, potassium chloride, rosuvastatin Allergies: ibuprofen Cardiac Risk Factors: Hypertension Pretest Chest Pain Characteristics: Hyperlipidemia, hypertension, diabetes type II, obesity, tobacco use (current), CVD, family hx Exercise History: Only physically active in cardiac rehab (3days/wk) Physical Disabilities: None Lung Sounds: Clear to auscultation Heart Sounds: Regular Stress Test Details Test: Exercise stress testing was performed using a Maco protocol. Nuclear Acquisition: Rest Tc-99m/Stress Tc-99m 1 day Rest Isotope: Tc-99m Sestamibi. Dose: 10.0 Date: 01/07/2021 Injection Time: 0915 Stress Isotope: Tc-99m Sestamibi. Dose: 36.0 Date: 01/07/2021 Injection Time: 1035 HR Resting HR Supine: 71 bpm Max Heart Rate (APMHR): 157.420788 bpm Resting HR Standin bpm Target HR (85% APMHR): 133.853028 bpm Max HR Achieved: 145 bpm % of APMHR: 92.36 Recovery HR: 86 bpm HR response to stress: Normal HR response to stress Comment: Metoprolol succinate held for 48 hrs BP Resting BP Supine: 138/64 mmHg Resting BP Standin/60 mmHg Max BP: 160/72 mmHg Recovery BP: 122/56 mmHg BP response to stress: Normal blood pressure response to stress. ECG Resting ECG: Sinus Rhythm Ectopy: None Stress ECG: Sinus Tachycardia ST Change: Horizontal ST depression Lead(s): II, III, aVF Stage: [address] Deviation: 0.5 mm Arrhythmia: None Recovery ECG: Sinus Rhythm Recovery ST Change: Horizontal ST depression Lead(s): II, III, aVF Recovery ST Deviation: 0.5 mm Recovery Arrhythmia: Rare PVC Clinical Reason for Termination: Fatigue Stress Symptoms: General Fatigue, Dyspnea Exercise duration: 6 min32 sec Highest Stage Reached: Stage 3: 3.4 mph at 14% grade. Exercise capacity: 7.85 METs Rate Pressure Product: 15677 Stress ECG Conclusion 1. Resting electrocardiogram showed sinus rhythm, vertical axis, old anteroseptal infarct, IVCD 2. Patient exercised on the Maco protocol completing a workload of 7.85 METS. There was no chest pa in suggestive of angina 3. Normal heart rate and blood pressure response to exercise. Patient achieved 92% of predicted hear t rate for age 4. Electrocardiographically there was [address] depression noted in the inferior and ante rolateral leads consistent with myocardial ischemia 5. Rare PVCs were seen Stress Test Summary STAGE Time (mins) Speed (mph) Grade (%) HR BP SYMPTOMS METS Supine 71 138/64 Standing 73 126/60 SpO2 95% 1 3 1.7 10 118 130/63 SpO2 90% 4.6 2 6 2.5 12 140 140/86 SpO2 91%, mild SOB 7 3 9 3.4 14 143 10.2 1 min recovery 132 160/72 SpO2 95% 3 min recovery 101 158/56 SpO2 96% 6 min recovery 86 122/56 SpO2 96%, SOB resolved MPI Conclusion Myocardial perfusion is abnormal There is infarction of the septal, apical and anteroapical segments There is no significant residual ischemia Radiologist Interpretation Radiologist agrees with Radio Television Announcer's Interpretation. Radiologist Interpretation by: Ania Toro MD Interpretation Date/Time: 01/07/2021 15:47:21
== END ==
PROVIDERS: PCP Internal Medicine; Visit Provider Internal Medicine
DX: R07.9 Chest pain, unspecified (principal); I10 Essential (primary) hypertension; I25.5 Ischemic cardiomyopathy
CPT/HCPCS: 78452; 93016; 93018; 93017

== ENCOUNTER 2021-06-19 16:15 | Outpatient (REF) | payer MEDICARE, SELFPAY ==
[2021-06-19 13:57] LABS: Anion Gap 9.9 mmol/L (3-11); BUN 15 mg/dL (7-18); CO2 26.1 mmol/L (21.0-32.0); CREATININE 0.8 mg/dL (0.55-1.02); Calcium 9.3 mg/dL (8.5-10.1); Chloride 99 mmol/L (98-107); Glucose 321 mg/dL (74-106); Potassium 4.6 mmol/L (3.5-5.1); Sodium 135 mmol/L (136-145)
== END 2021-06-19 16:16 | disposition home or self-care (01) ==
LOC: NCHCN 16:15
PROVIDERS: PCP Internal Medicine; Visit Provider Internal Medicine
DX: E11.9 Type 2 diabetes mellitus without complications (principal); I50.22 Chronic systolic (congestive) heart failure; I10 Essential (primary) hypertension; F31.9 Bipolar disorder, unspecified; M79.7 Fibromyalgia
CPT/HCPCS: 80048

== ENCOUNTER → 2021-09-16 10:06 | Outpatient (CLI) | payer MEDICARE, SELFPAY ==
--- NOTE | 2021-09-16 | DI.MAMMO_ITS ---
Exam(s) MAMMO SCREENING EXAM: MAMMO SCREENING CLINICAL HISTORY: SCREENING, Z12.39. TECHNIQUE: Bilateral full field digital CC and MLO mammographic images were obtained with 3D tomosyn thesis and utilizing computer aided detection (CAD). COMPARISON: Prior mammograms were reviewed, the most recent being June 2020. FINDINGS: No new significant radiograph findings in the right breast. The left breast there benign-appearing micro and macro calcifications again noted. However, there is a new small group of calcifications noted on the MLO view, approximately 4 cm in from the nipple. T his may be a forming benign oil cyst, as is present elsewhere in the breasts. No new spiculated masses There is no significant architectural distortion nor skin thickening-retraction. IMPRESSION: No radiographic evidence of malignancy in right breast. Left breast microcalcification group seen on the MLO view, possibly additional small developing fat n ecrosis or oil cyst. However, recommend spot Mag 2D view. BI-RADS Category 0 - Assessment Incomplete: Need additional imaging evaluation Breast Density - Category B - Scattered areas of fibroglandular density Breast density Category C or D implies that the patient has dense breast tissue. Dense breast tissue can make it harder to find cancer on a mammogram. Dense breast tissue is also associated with an incr eased risk of breast cancer. This information about the result of the mammogram report was provided to the patient to raise their awareness. Use this report when you speak with the patient about their risks for breast cancer, which includes their family history. At that time, you may recommend additional screening tests (Ultrasoun d or MRI) as these tests may add significant information. A negative radiographic report should not delay biopsy if a dominant or clinically suspicious mass is present. Up to ten percent of cancers are not identified on mammography. A negative report may reinforce clinical impression. Adenosis and dense breasts may obscure an underlying neoplasm. False positive reports average 6 to 10%. Patient will receive a letter notifying them of these results.
== END ==
PROVIDERS: PCP Internal Medicine; Visit Provider Internal Medicine
DX: Z12.31 Encounter for screening mammogram for malignant neoplasm of breast (principal); R92.8 Other abnormal and inconclusive findings on diagnostic imaging of breast
CPT/HCPCS: 77063; 77067

== ENCOUNTER 2021-09-16 10:16 | Outpatient (REF) | payer MEDICARE, SELFPAY ==
--- NOTE | 2021-09-16 09:30 | PAPFT_PTH ---
PATIENT: Yas Campos LOC: [facility]#:[id number] AGE/SX: 66/F ROOM: RE09/16/[address]: Con Gardner : 1955 BED: DIS: 09/16/2021 SPEC #: [id number] RECD: 09/16/21 16:21 STATUS: SIGRID DANIEL #: [id number] LALITO: 09/16/21 09:[address]: Con Gardner DEPT: [facility] Cytology RECD BY: Tato Gonzales Tissues: 1 - CX/ENDOCX FOR PAP SMEARS Procedures: PAP THIN PREP/UVM Screening HPV DNA PROBE Comments: [id number]
== END 2021-09-16 10:17 | disposition home or self-care (01) ==
LOC: NCHCN 10:16
PROVIDERS: PCP Internal Medicine; Visit Provider Internal Medicine
DX: Z12.4 Encounter for screening for malignant neoplasm of cervix (principal); Z11.51 Encounter for screening for human papillomavirus (HPV)
CPT/HCPCS: 88142; 87624

== ENCOUNTER → 2021-09-26 00:47 | Outpatient (CLI) | payer MEDICARE, SELFPAY ==
--- NOTE | 2021-09-26 | DI.MAMMO_ITS ---
Exam(s) MAMMO SCREEN CALL BACK UNI EXAM: MAMMO SCREEN CALL BACK UNI-LEFT CLINICAL HISTORY: CALCIFICATIONS LEFT BREAST. TECHNIQUE: Unilateral spot magnification 2D mammographic images obtained. COMPARISON: Prior mammograms were reviewed. This additional imaging was performed due to findings described on the recent screening mammogram of 09/16/2021. FINDINGS: The appearance of the new microcalcification group in the left breast may or may not be calcification within a benign newly forming peripherally calcified oil cyst, as are seen in numerous other areas o f breasts. Appropriate follow-up, as discussed by myself with the patient today, is repeat left breast mammogram and spot Mag view in 6 months to restudy these calcifications. IMPRESSION: Left breast microcalcification group requiring repeat mammogram with 2D spot Mag views in 6 months. Findings are recommendations were discussed by myself with the patient today. BI-RADS Category 3 - 6 month - Probably Benign Finding: Recommend follow-up mammography in 6 months Breast Density - Category B - Scattered areas of fibroglandular density Breast density Category C or D implies that the patient has dense breast tissue. Dense breast tissue can make it harder to find cancer on a mammogram. Dense breast tissue is also associated with an incr eased risk of breast cancer. This information about the result of the mammogram report was provided to the patient to raise their awareness. Use this report when you speak with the patient about their risks for breast cancer, which includes their family history. At that time, you may recommend additional screening tests (Ultrasoun d or MRI) as these tests may add significant information. A negative radiographic report should not delay biopsy if a dominant or clinically suspicious mass is present. Up to ten percent of cancers are not identified on mammography. A negative report may reinforce clinical impression. Adenosis and dense breasts may obscure an underlying neoplasm. False positive reports average 6 to 10%. Patient will receive a letter notifying them of these results.
== END ==
PROVIDERS: PCP Internal Medicine; Visit Provider Internal Medicine
DX: Z12.31 Encounter for screening mammogram for malignant neoplasm of breast (principal); R92.8 Other abnormal and inconclusive findings on diagnostic imaging of breast; R92.0 Mammographic microcalcification found on diagnostic imaging of breast
CPT/HCPCS: 77063; 77067

== ENCOUNTER 2022-02-18 08:29 | Emergency (ER) | payer MEDICARE, SELFPAY ==
[2022-02-18] VITALS (37 sets, daily range): BP systolic 97–123; BP diastolic 44–60; PULSE 64–76; RESP 7–27; TEMP 36.2; O2SAT 93–99
--- NOTE | 2022-02-18 08:30 | DI.RAD_ITS ---
Exam(s) XR PORTABLE CHEST AP EXAM: XR PORTABLE CHEST AP CLINICAL HISTORY: chest pressure/sob TECHNIQUE: 2D digital imaging was performed. COMPARISON: CR XR PORTABLE CHEST AP from 09/23/[address] THORAX CTA from 12/26/2020 FINDINGS: The heart is enlarged, unchanged. Coronary artery stent and sternal wires are noted. There is no fo eileen infiltrate or evidence of pulmonary edema. No effusion or pneumothorax is seen. IMPRESSION: Stable cardiomegaly, no acute findings. DATA REPOSITORY: RADIATION DOSE DELIVERED:
--- NOTE | 2022-02-18 08:30 | RT.EKG_ITS ---
APPROVED REPORT Exam: Resting ECG Reason for Exam: chest pain Patient Location: E HR:76 bpm ECG Measurements Heart Rate 76 AXIS AL 203 P 52 QRSd 105 QRS -25 QT 395 T 69 QTc 445 Conclusion Sinus rhythm...normal P axis, V-rate 60- 99 Probable left atrial enlargement...P >50mS, <-0.10mV V1 Anteroseptal infarct, age indeterminate...Q >35mS, T neg, V1-V2
--- NOTE | 2022-02-18 08:39 | ED.GENADUL_ITS ---
Discharge Plan Disposition Patient Disposition: HOME Condition: Improving Discharge Details Clinical Impression: Chest heaviness, CHF (congestive heart failure) Primary Care Provider: Con Gardner ED Provider: Jaret Obregon Home Meds and New Rx's Prescriptions: Continued magnesium L-lactate 84 mg tablet extended release 84 mg PO DAILY pantoprazole 40 mg tablet,delayed release (DR/EC) 40 mg PO DAILY aspirin [Adult Low Dose Aspirin] 81 MG tablet,delayed release (DR/EC) 81 mg PO DAILY Qty: 30 lisinopril [Prinivil] 10 mg tablet 20 mg PO DAILY Qty: 90 lamotrigine [Lamictal] 100 MG tablet 1 tab PO BID nitroglycerin [Nitrostat] 0.4 MG tablet, sublingual 0.4 mg Sublingual Q5 MIN PRN X3 PRN (Reason: Chest Pain) Qty: 15 0RF potassium chloride 10 mEq capsule, extended release 10 meq PO BID Label Comments: TAKE ONE CAPLET BY MOUTH TWICE DAILY cholecalciferol (vitamin D3) 25 mcg (1,000 unit) Capsule 1,000 unit PO DAILY rosuvastatin [Crestor] 40 MG tablet 40 mg PO QPM multivitamin [Daily Multi-Vitamin] 1 EACH tablet 1 tab DAILY vitamin B complex [B-Complex] 1 EACH tablet 1 tab PO DAILY alprazolam 0.5 mg Tablet 0.5 mg PO PRN PRN Rx Instructions: 1-2 times per day prn for anxiety citalopram 20 mg Tablet 20 mg PO DAILY insulin glargine [Lantus U-100 Insulin] 100 unit/mL solution 35 unit subcut DAILY Label Comments: 04/07/19 taking 50 mg daily gely naloxone [Narcan] 4 mg/actuation Rosine,Non-Aerosol 4 mg PRN PRN clopidogrel 75 mg tablet 75 mg PO DAILY lamotrigine 25 mg tablet 25 mg PO BID Label Comments: TAKE ONE TABLET BY MOUTH TWICE DAILY TO BE USED WITH 100MG TABLETS furosemide 40 mg tablet 40 mg PO QAM metoprolol succinate 50 mg tablet extended release 24 hr 75 mg PO DAILY Label Comments: TAKE 1 AND 1/2 TABLETS BY MOUTH DAILY isosorbide mononitrate 30 mg Tablet Extended Release 24 Hr 60 mg PO HS Qty: 60 0RF Discharge Instructions Instructions: Heart Failure (ED), Chest Pain (ED) Additional Instructions: Your work-up in the ER reveals that your BNP is elevated which indicates congestive heart failure. It is imperative that you take your Lasix as directed. Please watch for new or worsening symptoms and return to the ER for any concerns. I have spoken with the office of your primary care provider and they will be in touch with you to set up an outpatient appointment on Wednesday. Medical Decision Making 67-year-old female with a past medical history of being a smoker, bipolar type I disorder, IL, CABG, stents, CHF, diabetes, hyperlipidemia, mitral insufficiency, presents to the ER for diarrhea that has been present for 2-3 we eks, she subsequently stopped taking her diuretics because she was concerned for dehydration, now presenting to the ER for chest heaviness and shortness of breath that has been constant for 1 week. Clinically she appears well, nontoxic, pulse in the 70s, afebrile, O2 sat 98% on room air. Examination does not reveal any pedal edema. Plan is to obtain a cardiac work-up including D- dimer and provide a full dose aspirin. Patient states that this presentation is different than her typical angina. She also states that her diarrhea is no longer watery and seems to be more formed and improving in general. Will obtain stool sample for pathogens and C. difficile if diarrhea sample is provided. Work-up reveals D-dimer of 635 which is unremarkable when age-adjusted. Will not pursue CTA of the chest. BNP is 2281. Troponin less than 50. COVID- negative. Chest x-ray unremarkable Given she stopped taking her diuretic approximately 2 weeks ago, will provide 80 IV Lasix now. Patient has had multiple episodes of urination reports overall she is feeling significantly better. Reports that there remains a dull chest heaviness but overall it is improved and she no longer feels short of breath. She is agreeable to awaiting a delta troponin. Delta troponin remains less than 50. Repeat EKG performed at 1131, read by Dr. Morris as sinus rhythm, ventricular rate of 66, concerning for dynamic T wave changes specifically in V3. Overall patient has a heart score of 4. Admission is reasonable. Case discussed with our hospitalist team, Dr. Jeter. She reviewed the EKGs as well as spoke with Dr. Morris, does not feel as though these T waves are dynamic in nature and does not believe the patient requires admission, can be safely discharged from the ER. I was able to contact the office of her PCP and speak with Dr. Starks, who is aware of her ER visit, work-up, and disposition. She will begin taking her Lasix again as directed and will follow up in their office on Wednesday. His offi ce will be reaching out to her. The patient may very well benefit from an outpatient stress test and echocardiogram. Standard discharge and return precautions were provided. Patient understands, is agreeable to this plan, and has no additional questions or concerns upon discharge. This documentation was generated using [employer] system, please disregard any oddities of phrase or misspellings. Medical Records Medical records reviewed: Yes I reviewed the patient's medical records. Imaging Data Radiologic Study: Attestation: I personally reviewed and interpreted this imaging study as follows: Imaging: X-Ray Radiologist's impression: Exam(s) XR PORTABLE CHEST AP EXAM: XR PORTABLE CHEST AP CLINICAL HISTORY: chest pressure/sob TECHNIQUE: 2D digital imaging was performed. COMPARISON: CR XR PORTABLE CHEST AP from 09/23/[address] [facility] CTA from 12/26/2020 FINDINGS: The heart is enlarged, unchanged. Coronary artery stent and sternal wires are noted. There is no focal infiltrate or evidence of pulmonary edema. No effusion or pneumothorax is seen. IMPRESSION: Stable cardiomegaly, no acute findings. Lab Data Lab results reviewed: Yes I reviewed the patient's lab results. Labs: Laboratory Tests Range/Units 02/18/22 02/18/22 02/18/22 08:41 08:45 08:45 WBC (4.4-10.8) 10^3/uL 7.17 RBC (3.93-5.22) 10^6/uL 3.78 L Hgb (11.2-15.7) g/dL 11.6 Hct (36.0-46.0) % 35.9 L MCV (80-95) fL 95 MCH (27.0-33.0) pg 30.7 MCHC (32.0-36.0) % 32.3 RDW (11.7-14.6) % 14.0 Plt Count (130-400) 10^3/uL 260 MPV (8.0-11.0) fL 9.6 Immature Gran % 0.3 Neutrophils % 63.7 Lymphocytes % 22.0 Monocytes % 11.2 Eosinophils % 2.2 Basophils % 0.6 Nucleated RBC % (0.0-0.3) % 0.0 Absolute Neutrophils (1.2-6.7) 10^3/uL 4.57 Absolute Lymphocytes (1.2-3.4) 10^3/uL 1.58 Absolute Monocytes (0.1-0.8) 10^3/uL 0.80 Absolute Eosinophils (0.0-0.7) 10^3/uL 0.16 Absolute Basophils (0.0-0.2) 10^3/uL 0.04 PT INR APTT D-Dimer Sodium (136-145) mmol/L 138 Potassium (3.5-5.1) mmol/L 4.7 Chloride (98-107) mmol/L 104 Carbon Dioxide (21.0-32.0) mmol/L 25.3 Anion Gap (3-11) mmol/L 8.7 BUN (7-18) mg/dL 9 Creatinine (0.55-1.02) mg/dL 0.8 Est GFR (CKD-EPI 2020) (mL/min/1.73m2) 81.72 Glucose (74-106) mg/dL 174 H Calcium (8.5-10.1) mg/dL 9.2 Magnesium (1.8-2.4) mg/dL 1.9 Total Bilirubin (0.2-1.0) mg/dL 0.6 AST (15-37) U/L 24 ALT (14-59) U/L 30 Alkaline Phosphatase (46-116) U/L 89 Troponin I (<or=60) ng/L < 50 NT-Pro-B Natriuret Pep (<300) pg/mL 2281 H Total Protein (6.4-8.2) g/dL 7.9 Albumin (3.4-5.0) g/dL 3.4 TSH (0.36-3.74) uIU/mL 2.47 COVID-19 Source Nasal/Nares SARS-CoV-2 (PCR) (Negative) Negative Range/Units 02/18/22 02/18/22 08:45 08:57 WBC (4.4-10.8) 10^3/uL RBC (3.93-5.22) 10^6/uL Hgb (11.2-15.7) g/dL Hct (36.0-46.0) % MCV (80-95) fL MCH (27.0-33.0) pg MCHC (32.0-36.0) % RDW (11.7-14.6) % Plt Count (130-400) 10^3/uL MPV (8.0-11.0) fL Immature Gran % Neutrophils % Lymphocytes % Monocytes % Eosinophils % Basophils % Nucleated RBC % (0.0-0.3) % Absolute Neutrophils (1.2-6.7) 10^3/uL Absolute Lymphocytes (1.2-3.4) 10^3/uL Absolute Monocytes (0.1-0.8) 10^3/uL Absolute Eosinophils (0.0-0.7) 10^3/uL Absolute Basophils (0.0-0.2) 10^3/uL PT Cancelled 12.1 H INR Cancelled 1.2 H APTT Cancelled 26.7 D-Dimer Cancelled 635 H Sodium (136-145) mmol/L Potassium (3.5-5.1) mmol/L Chloride (98-107) mmol/L Carbon Dioxide (21.0-32.0) mmol/L Anion Gap (3-11) mmol/L BUN (7-18) mg/dL Creatinine (0.55-1.02) mg/dL Est GFR (CKD-EPI 2020) (mL/min/1.73m2) Glucose (74-106) mg/dL Calcium (8.5-10.1) mg/dL Magnesium (1.8-2.4) mg/dL Total Bilirubin (0.2-1.0) mg/dL AST (15-37) U/L ALT (14-59) U/L Alkaline Phosphatase (46-116) U/L Troponin I (<or=60) ng/L NT-Pro-B Natriuret Pep (<300) pg/mL Total Protein (6.4-8.2) g/dL Albumin (3.4-5.0) g/dL TSH (0.36-3.74) uIU/mL COVID-19 Source SARS-CoV-2 (PCR) (Negative) ECG Data Attestation: I personally reviewed and interpreted this ECG (s) as follows: Interpretation: Sinus rhythm, ventricular rate of 76. Nonspecific T wave abnormalities. No STEMI HPI General Mode of arrival: ambulatory . Date/Time Provider Initiated Documentation: 02/18/22 08:30 . Limitations to Documentation: no limitations . Information obtained by: patient . HPI Narrative: This is a 67-year-old female with past medical history of bipolar type I disorder, IL, CABG, multiple stents, CHF, diabetes, hyperlipidemia, mitral insufficiency, current smoker, presenting to the ER for diarrhea for approximately 2-3 weeks, chest heaviness and shortness of breath constant for the last week or so. She states that the diarrhea began first, was initially much more watery and gassy, never had a fever or abdominal pain, now the stools are slightly more formed. Denies bright red blood in her stools or black tarry stools. Because of her concern of dehydration secondary to diarrhea she stopped taking her diuretics roughly 2 weeks ago. She states subsequently she develop ed a chest heaviness and shortness of breath that has been constant, nothing makes it worse or better. She denies pain or radiation of her sensation. She states that this does not feel like her angina. She tells me that she has taken all of her other medications as directed. She denies recent fever, illness, headache, neck pain, chest pain, cough, abdominal pain, nausea, vomiting, dysuria, fluid retention with pain or swelling her legs. She was seen by her PCP this morning and sent to the ER for further evaluation. Related Data Home Medications Medication Instructions Recorded Confirmed lamotrigine 100 mg tablet 1 tab PO BID 04/08/14 02/18/22 (Lamictal) nitroglycerin 0.4 mg sublingual 0.4 mg sublingual Q5 MIN PRN X3 07/01/15 02/18/22 tablet (Nitrostat) PRN Chest Pain #15 tabs aspirin 81 mg tablet,delayed 81 mg PO DAILY #30 tab-caps 05/29/16 02/18/22 release (Adult Low Dose Aspirin) rosuvastatin 40 mg tablet (Crestor) 40 mg PO QPM 01/03/18 02/18/22 multivitamin (Daily Multi-Vitamin 1 tab DAILY 01/04/18 02/18/22 tablet) vitamin B complex (B-Complex 1 tab PO DAILY 01/04/18 02/18/22 tablet) alprazolam 0.5 mg tablet 0.5 mg PO PRN PRN 11/05/18 02/18/22 citalopram 20 mg tablet 20 mg PO DAILY 11/05/18 02/18/22 naloxone 4 mg/actuation nasal 4 mg PRN PRN 11/21/18 02/18/22 spray (Narcan) magnesium L-lactate 84 mg 84 mg PO DAILY 12/23/18 02/18/22 tablet,extended release pantoprazole 40 mg tablet,delayed 40 mg PO DAILY 04/07/19 02/18/22 release insulin glargine 100 unit/mL 35 unit subcut DAILY 10/06/19 02/18/22 subcutaneous solution (Lantus U-100 Insulin) cholecalciferol (vitamin D3) 25 1,000 unit PO DAILY 09/23/20 02/18/22 mcg (1,000 unit) capsule potassium chloride 10 mEq 10 meq PO BID 09/23/20 02/18/22 capsule,extended release lisinopril 10 mg tablet (Prinivil) 20 mg PO DAILY #90 tab-caps 10/07/20 02/18/22 clopidogrel 75 mg tablet 75 mg PO DAILY 12/27/20 02/18/22 furosemide 40 mg tablet 40 mg PO QAM 12/27/20 02/18/22 isosorbide mononitrate 30 mg 60 mg PO HS #60 tabs 12/27/20 02/18/22 tablet,extended release 24 hr lamotrigine 25 mg tablet 25 mg PO BID 12/27/20 02/18/22 metoprolol succinate 50 mg 75 mg PO DAILY 12/27/20 02/18/22 tablet,extended release 24 hr Previous Rx's Medication Instructions Recorded nitroglycerin 0.4 mg sublingual 0.4 mg sublingual Q5 MIN PRN X3 07/01/15 tablet (Nitrostat) PRN Chest Pain #15 tabs isosorbide mononitrate 30 mg 60 mg PO HS #60 tabs 12/27/20 tablet,extended release 24 hr Allergies Allergy/AdvReac Type Severity Reaction Status Date / Time ibuprofen AdvReac Severe severe Verified 12/26/20 12:35 vomiting General Stated Complaint: GenMedical CHRIS: 2 Review of Systems Constitutional Constitutional: Denies fever(s), Denies headache(s) and Reports weakness (Generalized) ENT Ears, Nose, Mouth, and Throat: Denies headache(s) and Denies neck pain Cardiovascular Cardiovascular: Denies chest pain, Reports dyspnea and Reports other (Chest heaviness) Respiratory Respiratory: Denies cough and Reports dyspnea Gastrointestinal Gastrointestinal: Denies abdominal pain, Denies melena, Denies hematochezia, Denies constipation, Reports diarrhea, Reports loose stools, Denies nausea and Denies vomiting Genitourinary Genitourinary: Denies dysuria Musculoskeletal Musculoskeletal: Denies back pain and Denies neck pain Integumentary/Breasts Skin/Breast: Denies rash Neurologic Neurologic: Denies headache(s) and Reports weakness (Generalized) Hematologic/Lymphatic Hematologic/Lymphatic: Reports easy bleeding and Reports easy bruising PFSH All Active Problems (Updated 02/18/22 @ 12:52 by ISA Kaur) Chest heaviness (Acute) CHF (congestive heart failure) (Chronic) Tobacco abuse (Acute) Bipolar 1 disorder (Acute) Chest pain, rule out acute myocardial infarction (Acute) Hx of CABG (Chronic) Discharge planning issues (Acute) DVT prophylaxis (Acute) Ischemic cardiomyopathy (Chronic) CHF (congestive heart failure) (Chronic) Diabetes mellitus type 2, controlled (Acute) Coronary atherosclerosis (Acute) Accelerating angina (Acute) Hyperlipidemia (Acute) Sinusitis (Acute) Fatigue (Acute) Mitral insufficiency (Acute) Medical History Diabetes Fibromyalgia GERD (gastroesophageal reflux disease) Hypertension Sleep apnea Surgical History Hx of CABG 2016 S/P mitral valve clip implantation Status post carpal tunnel release of both wrists Social History Smoking/Tobacco Use Status: Current every day Tobacco Type: cigarettes Quit status: considering quitting Smoking risk assessment performed?: Yes Drug use: Never Substance use type: does not use What type of physical activity do you participate in: other Details: cardiac re hab Do you feel safe at home: Yes Do you feel safe in your relationship?: Yes Additional Social history: Lives with her adult son. 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 History History Para 4 Hx # Term Pregnancies Multiple births Hx # Pregnancies Ectopic pregnancies AB induced Hx Number of Living Children AB spontaneous Exam Const General: cooperative, healthy appearing, comfortable and no acute distress Orientation: alert, awake and oriented x3 HENMT Head: normal to inspection, normocephalic and atraumatic Face and sinus: normal facial exam Mouth: moist mucous membranes Eyes General: appearance normal, both eyes and all related structures Conjunctivae: conjunctivae normal Neck Neck: normal visual inspection, full ROM, no meningeal signs, trachea midline and supple Resp Effort & Inspection: normal respiratory effort and able to speak in complete sentences Auscultation: clear to auscultation bilaterally Cardio Rate: regular rate Rhythm: regular rhythm GI Palpation: soft, not firm, no guarding, no pulsatile masses and nontender Auscultation: normal bowel sounds Back/Spine/Pelvis Back: No back tenderness Skin General skin exam: no rashes or lesions noted Neuro General: patient alert, patient awake, moves all extremities and no focal motor deficits Cognition: normal cognition Speech: speech normal Gait: normal gait Motor: muscle tone normal throughout Sensory Exam: no sensory deficits noted Extrem General: normal to inspection, full ROM, capillary refill normal, no pedal edema and no calf tenderness Psych Appearance: grossly normal Mental Status: mental status grossly normal Course Vital Signs Vital signs: Vital Signs Temperature 36.2 C L 02/18/22 08:33 Pulse 76 02/18/22 08:33 Respiratory Rate 27 H 02/18/22 08:33 Blood Pressure 123/59 L 02/18/22 08:33 Pulse Oximetry 98 02/18/22 08:33 Temperature 36.2 C L 02/18/22 08:33 Temperature Source Temporal Artery Scan 02/18/22 08:33 Pulse 76 02/18/22 08:33 Respiratory Rate 27 H 02/18/22 08:33 Blood Pressure 123/59 L 02/18/22 08:33 Blood Pressure Position Supine 02/18/22 08:33 Pulse Oximetry 98 02/18/22 08:33 Oxygen Delivery Method Room Air 02/18/22 08:33 Oxygen Flow Rate 0 02/18/22 08:33 Pain Level 2 02/18/22 08:33
[2022-02-18 08:45] LABS: Source Nasal/Nares
[2022-02-18 09:00] LABS: Abs Immature Grans 0.02 10^3/uL (0.0-0.06); Absolute Basophil Count 0.04 10^3/uL (0.0-0.2); Absolute Eosinophil Count 0.16 10^3/uL (0.0-0.7); Absolute Lymphocyte Count 1.58 10^3/uL (1.2-3.4); Absolute Neutrophil Count 4.57 10^3/uL (1.2-6.7); Basophils % 0.6; Eosinophils % 2.2; HCT 35.9 % (36.0-46.0); HGB 11.6 g/dL (11.2-15.7); Immature Grans % 0.3; MCH 30.7 pg (27.0-33.0); MCHC 32.3 % (32.0-36.0); MCV 95 fL (80-95); MPV 9.6 fL (8.0-11.0); Monocytes % 11.2; Neutrophils % 63.7; Platelet Count 260 10^3/uL (130-400); RBC 3.78 10^6/uL (3.93-5.22); RDW-SD 48.2 fL; WBC 7.17 10^3/uL (4.4-10.8)
[2022-02-18 09:18] LABS: COVID-19 PCR Negative (Negative)
[2022-02-18 09:21] LABS: INR 1.2 (0.9-1.1); PTT Activated 26.7 sec (21.0-27.5); Prothrombin Time 12.1 sec (9.3-11.0)
[2022-02-18 09:22] LABS: ALT 30 U/L (14-59); AST 24 U/L (15-37); Albumin 3.4 g/dL (3.4-5.0); Alkaline Phosphatase 89 U/L (46-116); Anion Gap 8.7 mmol/L (3-11); BUN 9 mg/dL (7-18); Bilirubin, Total 0.6 mg/dL (0.2-1.0); CO2 25.3 mmol/L (21.0-32.0); CREATININE 0.8 mg/dL (0.55-1.02); Calcium 9.2 mg/dL (8.5-10.1); Chloride 104 mmol/L (98-107); Estimated GFR 81.72 (mL/min/1.73m2); Glucose 174 mg/dL (74-106); Magnesium 1.9 mg/dL (1.8-2.4); NT-proBNP 2281 pg/mL (<300); Potassium 4.7 mmol/L (3.5-5.1); Sodium 138 mmol/L (136-145); TSH (W/Ref FT4) 2.47 uIU/mL (0.36-3.74); Total Protein 7.9 g/dL (6.4-8.2); Troponin I < 50 ng/L (<or=60)
[2022-02-18] MEDS: Aspirin 81 MG CHEW 324 MG CH (09:24)
[2022-02-18 09:41] LABS: D-Dimer 635 ng/mlFEU (<500)
[2022-02-18] MEDS: Furosemide 100 MG/10 ML VIAL 80 MG IVP (09:56)
--- NOTE | 2022-02-18 11:15 | RT.EKG_ITS ---
APPROVED REPORT Exam: Resting ECG Reason for Exam: chest pain Patient Location: E HR:66 bpm ECG Measurements Heart Rate 66 AXIS WV 188 P 54 QRSd 103 QRS -14 QT 422 T 66 QTc 441 Conclusion Sinus rhythm...normal P axis, V-rate 60- 99 Anteroseptal infarct, age indeterminate...Q >35mS, T neg, V1-V2 t wave inversion v3
[2022-02-18 12:09] LABS: Troponin I < 50 ng/L (<or=60)
== END 2022-02-18 13:40 | disposition home or self-care (01) ==
PROVIDERS: Emergency Provider Physician Assistant; PCP Internal Medicine
DX: I50.9 Heart failure, unspecified (principal); E11.9 Type 2 diabetes mellitus without complications; Z95.1 Presence of aortocoronary bypass graft; Z95.5 Presence of coronary angioplasty implant and graft; I11.0 Hypertensive heart disease with heart failure; I25.2 Old myocardial infarction; F17.210 Nicotine dependence, cigarettes, uncomplicated; Z20.822 Contact with and (suspected) exposure to COVID-19
CPT/HCPCS: 36415; 80053; 87635; 93005; 96374; 99284; 99285; 71045; 83735; 83880; 84443; 84484; 85025; 85379; 85610; 85730; 93010; J1940

== ENCOUNTER 2022-04-07 02:06 | Outpatient (CLI) | payer MEDICARE, SELFPAY ==
--- NOTE | 2022-04-07 10:06 | DI.MAMMO_ITS ---
Exam(s) MAMMO DIAGNOSTIC UNI EXAM: MAMMO DIAGNOSTIC UNI CLINICAL HISTORY: 6-MO F/U LT ABNL MAMMO, R92.8. TECHNIQUE: Craniocaudal and mediolateral oblique Full Field Digital Mammography views of the left br east with Computer Aided Diagnosis followed by Tomosynthesis. COMPARISON: Comparison is made with prior examinations. FINDINGS: Mammography/Tomosynthesis: Masses/Architectural Distortion: None seen. Microcalcifictions: No suspicious pleomorphic-type are seen. The small grouping of calcifications in the left central breast are unchanged. Skin Thickening/Nipple Retraction: None. IMPRESSION: 1. No evidence of malignancy is noted. 2. The patient should return in 6 months for a re-evaluation. At that time the patient is scheduled for their right screening mammogram. 3. The findings were discussed with the patient on the date of the examination. BI-RADS Category 3 - 6 month - Probably Benign Finding: Recommend follow-up imaging in 6 months Breast Density - Category B - Scattered areas of fibroglandular density Breast density Category C or D implies that the patient has dense breast tissue. Dense breast tissue can make it harder to find cancer on a mammogram. Dense breast tissue is also associated with an incr eased risk of breast cancer. This information about the result of the mammogram report was provided to the patient to raise their awareness. Use this report when you speak with the patient about their risks for breast cancer, which includes their family history. At that time, you may recommend additional screening tests (Ultrasoun d or MRI) as these tests may add significant information. A negative radiographic report should not delay biopsy if a dominant or clinically suspicious mass is present. Up to ten percent of cancers are not identified on mammography. A negative report may reinforce clinical impression. Adenosis and dense breasts may obscure an underlying neoplasm. False positive reports average 6 to 10%. Patient will receive a letter notifying them of these results.
== END 2022-04-07 02:26 ==
LOC: DI 02:07
PROVIDERS: PCP Internal Medicine; Visit Provider Internal Medicine
DX: Z12.31 Encounter for screening mammogram for malignant neoplasm of breast (principal); R92.8 Other abnormal and inconclusive findings on diagnostic imaging of breast
CPT/HCPCS: 77061; 77065; G0279

== ENCOUNTER 2022-05-28 02:22 | Outpatient (CLI) | payer MEDICARE, SELFPAY ==
--- NOTE | 2022-05-28 | DI.US_ITS ---
APPROVED REPORT EXAM: Comprehensive 2D, Doppler, and color-flow Echocardiogram Patient Location: Out-Patient Milk Route Deliverer: Nasrin Escamilla RDCS (AE) Indications: Congestive heart failure, Mitral insufficiency, Mitral valve clip repair, CAD Other Information Study Quality: Adequate Conclusion Normal left ventricular wall thickness and chamber size. Estimated ejection fraction is 50 to 55%. Flattened septum and somewhat paradoxic septal motion suggest right ventricular pressure/volume overl oad The right ventricle is mildly to moderately dilated. Right ventricular systolic function appears no rmal Both atria are mildly dilated Aortic valve is trileaflet and mildly sclerotic with moderate regurgitation There has been mitral valve clip. There is moderate mitral regurgitation Normal tricuspid valve with severe regurgitation Normal pulmonic valve with moderate regurgitation Dilated ascending aorta measuring 3.4 cm Estimated right ventricular systolic pressure is 51 mmHg Wall motion Left Ventricle The left ventricle is normal size. Left ventricular systolic function is borderline There is normal l eft ventricular wall thickness. Flattened septum consistent with right ventricular volume and pressur e overload. There is no ventricular septal defect visualized. LVEF is 50-55%. Right Ventricle Right ventricle is mild to moderately dilated. Right ventricular systolic function is grossly normal . The RVSP is 50.7mmHg. Atria Left atrium is mildly dilated. Right atrium is mildly dilated. The interatrial septum is intact with no evidence for an atrial septal defect. Aortic Valve The Aortic valve is mildly sclerotic. Aortic valve is trileaflet. There is no aortic valvular stenosi s. Moderate aortic regurgitation. Mitral Valve Mitral valve clip repair Moderate mitral regurgitation. Tricuspid Valve The tricuspid valve is normal in structure. There is no tricuspid valve stenosis. Severe tricuspid re gurgitation. Pulmonic Valve The pulmonary valve is normal in structure. There is no pulmonic valvular stenosis. Moderate pulmonic regurgitation. Great Vessels The aortic root is normal in size. The ascending aorta is mildly dilated. The IVC collapses <50% with inspiration. Pericardium There is no pericardial effusion. 2D Dimensions IVSD d PLAX 0.86 cm F: 0.6-1.0 LV Vol A2C d MOD 161.2 mL LVPW d PLAX 0.86 cm F: 0.6 - 1.0 LV Vol A4C d MOD 124.7 mL LVID d PLAX 5.40 cm F: 3.8 - 5.2 LA Area A4C s MOD 19.11 cm2 LVDs 3.95 cm F: 2.2 - 3.5 LA Area A2C s MOD 20.30 cm2 Ao Root d 2.92 cm F: 2.7 - 3.3 LV EF A4C MOD 50.3 % RA Area A4C 14.09 cm2 LV EF A2C MOD 50.0 % Ao Asc Diam d 3.40 cm F: 2.3 - 3.1 LV EF Biplane MOD 49.8 % LV EF Teichholz 51.4 % SV 70.53 mL LVEF (Esquivel's) 49.76 % F: 54 - 74 LV Volume 141.74 mL F: 46 - 106 LV Volume Index 75.79 mL/m2 F: 29 - 61 LV Vol Biplane MOD 141.7 mL FS 26.45 % M-Mode TAPSE 0.90 cm (M/F) >1.7 LV Diastology E/A Ratio 1.5 MV E Vmax 1.91 (0.4-1.3 m/s) MV A Vmax 1.30 (0.4-1.3 m/s) MV E/A Ratio 1.45 Aortic Valve LVOT Area 2.91 cm2 AoV Area Vmax 2.03 cm2 LVOT Vmax 0.99 m/s DARRICK Mean Oumar. 2.08 cm2 LVOT Mean Oumar. 0.66 m/s AR DT 1539 msec LVOT Peak Grad 3.9 mmHg AR PHT 446 msec LVOT Mean Grad 2.0 mmHg LVOT VTI 0.198 m LVOT Diam s 1.90 cm AoV Vmax 1.42 m/s Velocity Ratio 0.70 AoV Mean Oumar. 0.92 m/s AoV Peak Grad 8.1 mmHg LVOT SV 57.72 mL AoV Mean Grad 3.9 mmHg AoV VTI 0.256 m AoV Area VTI 2.25 cm2 Mitral Valve MV DT 356 (160-240 msec) MV PHT 103 msec MV Area PHT 2.13 cm2 MV VTI 0.739 m MV Area VTI 0.78 (4.0-6.0 cm2) Pulmonary Valve PV Vmax 1.01 (0.5-1.5 m/s) RVOT Peak Gr. 1.25 mmHg PV Peak Grad 4.1 mmHg RVOT Mean Gr. 0.65 mmHg PV Mean Grad 1.8 mmHg RVOT VTI 0.126 m PV VTI 0.181 m RVOT Vmax 0.56 m/s Tricuspid Valve TR Peak Grad 42.6 mmHg TR Vmax 3.27 m/s RA Pressure 8.00 mmHg RVSP (TR) 50.7 mmHg
== END 2022-05-28 02:42 ==
LOC: DI 02:23
PROVIDERS: PCP Internal Medicine; Visit Provider Internal Medicine
DX: I50.22 Chronic systolic (congestive) heart failure (principal)
CPT/HCPCS: 93306

== ENCOUNTER 2022-05-29 10:27 | Emergency (ER) | payer MEDICARE, SELFPAY ==
--- NOTE | 2022-05-29 10:15 | RT.EKG_ITS ---
APPROVED REPORT Exam: Resting ECG Reason for Exam: [id number] Patient Location: E HR:61 bpm ECG Measurements Heart Rate 61 AXIS TN 189 P 43 QRSd 93 QRS -24 QT 422 T 85 QTc 425 Conclusion Sinus rhythm...normal P axis, V-rate 60- 99 Inferior infarct, old...Q >35mS, II III aVF Anteroseptal infarct, age indeterminate...Q >35mS, T neg, V1-V2 sinus rhythm, normal axis, t wave inversion V2 V3
[2022-05-29 10:38] VITALS: BP 111/57; PULSE 61; RESP 16; TEMP 36.6; O2SAT 97
--- NOTE | 2022-05-29 10:45 | DI.RAD_ITS ---
Exam(s) XR PORTABLE CHEST AP EXAM: XR PORTABLE CHEST AP CLINICAL HISTORY: SOB, Hx of CHF TECHNIQUE: 2D digital imaging was performed of the chest. One image was obtained. An AP view was ob tained. COMPARISON: CR XR PORTABLE CHEST AP from 02/18/2022 FINDINGS: MEDIASTINUM: Normal. HEART: Normal. PULMONARY VASCULATURE: Normal. LUNGS: Clear. PLEURAL SPACE: No pleural effusion or pneumothorax. BONE:Within normal limits for the patient's age. Sternal wires are in place. OTHER FINDINGS:Normal. IMPRESSION: No acute pulmonary findings. DATA REPOSITORY: RADIATION DOSE DELIVERED:
--- NOTE | 2022-05-29 10:53 | ED.GENADUL_ITS ---
Discharge Plan Disposition Patient Disposition: Home Condition: Stable Discharge Details Clinical Impression: Shortness of breath Primary Care Provider: Con Gardner ED Provider: Saray Walker Home Meds and New Rx's Prescriptions: Continued magnesium L-lactate 84 mg tablet extended release 84 mg PO DAILY pantoprazole 40 mg tablet,delayed release (DR/EC) 40 mg PO DAILY aspirin [Adult Low Dose Aspirin] 81 MG tablet,delayed release (DR/EC) 81 mg PO DAILY Qty: 30 lisinopril [Prinivil] 10 mg tablet 20 mg PO BID Qty: 90 lamotrigine [Lamictal] 100 MG tablet 100 mg PO BID nitroglycerin [Nitrostat] 0.4 MG tablet, sublingual 0.4 mg Sublingual Q5 MIN PRN X3 PRN (Reason: Chest Pain) Qty: 15 0RF potassium chloride 10 mEq capsule, extended release 10 meq PO BID Label Comments: TAKE ONE CAPLET BY MOUTH TWICE DAILY cholecalciferol (vitamin D3) 25 mcg (1,000 unit) Capsule 1,000 unit PO DAILY insulin aspart U-100 [Novolog FlexPen U-100 Insulin] 100 unit/mL (3 mL) insulin pen 7 unit SUBCUT QAM rosuvastatin [Crestor] 40 MG tablet 40 mg PO QPM multivitamin [Daily Multi-Vitamin] 1 EACH tablet 1 tab DAILY vitamin B complex [B-Complex] 1 EACH tablet 1 tab PO DAILY alprazolam 0.5 mg Tablet 0.5 mg PO PRN PRN Rx Instructions: 1-2 times per day prn for anxiety citalopram 20 mg Tablet 20 mg PO DAILY insulin glargine [Lantus U-100 Insulin] 100 unit/mL solution 48 unit subcut QAM Label Comments: 04/07/19 taking 50 mg daily gely naloxone [Narcan] 4 mg/actuation [place],Non-Aerosol 4 mg PRN PRN clopidogrel 75 mg tablet 75 mg PO DAILY lamotrigine 25 mg tablet 25 mg PO BID Label Comments: TAKE ONE TABLET BY MOUTH TWICE DAILY TO BE USED WITH 100MG TABLETS furosemide 40 mg tablet 40 mg PO BID metoprolol succinate 50 mg tablet extended release 24 hr 75 mg PO DAILY Label Comments: TAKE 1 AND 1/2 TABLETS BY MOUTH DAILY isosorbide mononitrate 30 mg Tablet Extended Release 24 Hr 60 mg PO HS Qty: 60 0RF Discharge Instructions Instructions: Dyspnea (ED) Additional Instructions: Lab results show Pro BNP today is 1901, Troponin negative, Chest Xray within normal limits. BUN 15, Cr 0.9 GFR 70.95. Please discuss these results with your primary care provider. You may want to mention Bumex or torsemide. Follow up with primary care provider in 3-5 days. Return to ED sooner if any worsening or concerns. Thank you for allowing us to care for you today. Referrals: Con Gardner MD [Primary Care Provider] - 3 days Medical Decision Making 67-year-old female with past medical history of CABG, CHF, type 2 diabetes, coronary arthrosclerosis, hyperlipidemia mitral insufficiency and tobacco abuse who also endorses alcohol use presents to the ER with chief complaint of shortness of breath which has been worsening over the last 3 to 4 days. She reports approximately 5 pound weight gain in the last 5 days and was referred here by her PCP. She denies any chest pain on my initial exam denies any nausea vomiting diarrhea problems urinating. She has no pedal edema. Cardiac work-up ordered including proBNP due to the history of CHF and shortness of breath, chest x-ray. She does take 40 mg of Lasix twice daily which she reports she has been taking as prescribed. Initial troponin less than 50 within normal limits, CBC shows no leukocytosis hemoglobin hematocrit 11.1 and 34.9 which is at patient's relative baseline, PT 12.7 INR 1.3, sodium 136 potassium 4.1 BUN 15 creatinine 0.9 GFR 70.95, glucose is 156 alk phos 169 proBNP is 1901, in February it was 2200. I did discuss patient's initial results with her she verbalized understanding. She would prefer not to wait for the 3-hour troponin she is denying any chest pain or chest pressure at this time. I did discuss follow-up with her PCP regarding the possible excess fluid she reports Dr. Gardner did not want her to take an extra dose of her furosemide. I did mention torsemide or Bumex to discuss that with her PCP. Chest x-ray within normal limits. Patient has declined waiting for the second troponin which I think it is reasonable at this time due to the length of symptom onset of 3 or 4 days. Did discuss strict return instructions and follow-up with her PCP she verbalizes understanding. Instructed her to continue taking her medications as previously prescribed. Patient remained hemodynamically stable throughout the remainder of her stay. This text was generated using [employer]icoChipation system, please disregard any oddities of phrase or misspellings. Medical Records Medical records reviewed: Yes I reviewed the patient's medical records. Imaging Data Radiologic Study: Imaging: X-Ray Radiologist's impression: EXAM: XR PORTABLE CHEST AP CLINICAL HISTORY: SOB, Hx of CHF TECHNIQUE: 2D digital imaging was performed of the chest. One image was obtained. An AP view was obtained. COMPARISON: CR XR PORTABLE CHEST AP from 02/18/2022 FINDINGS: MEDIASTINUM: Normal. HEART: Normal. PULMONARY VASCULATURE: Normal. LUNGS: Clear. PLEURAL SPACE: No pleural effusion or pneumothorax. BONE:Within normal limits for the patient's age. Sternal wires are in place. OTHER FINDINGS:Normal. IMPRESSION: No acute pulmonary findings. Lab Data Lab results reviewed: Yes I reviewed the patient's lab results. Labs: Laboratory Tests Range/Units 05/29/22 05/29/22 05/29/22 10:55 10:55 10:55 WBC (4.4-10.8) 10^3/uL 7.81 RBC (3.93-5.22) 10^6/uL 3.81 L Hgb (11.2-15.7) g/dL 11.1 L Hct (36.0-46.0) % 34.9 L MCV (80-95) fL 92 MCH (27.0-33.0) pg 29.1 MCHC (32.0-36.0) % 31.8 L RDW (11.7-14.6) % 15.0 H Plt Count (130-400) 10^3/uL 247 MPV (8.0-11.0) fL 9.9 Immature Gran % 0.4 Neutrophils % 62.1 Lymphocytes % 21.9 Monocytes % 12.3 Eosinophils % 2.7 Basophils % 0.6 Nucleated RBC % (0.0-0.3) % 0.0 Absolute Neutrophils (1.2-6.7) 10^3/uL 4.85 Absolute Lymphocytes (1.2-3.4) 10^3/uL 1.71 Absolute Monocytes (0.1-0.8) 10^3/uL 0.96 H Absolute Eosinophils (0.0-0.7) 10^3/uL 0.21 Absolute Basophils (0.0-0.2) 10^3/uL 0.05 PT (9.3-11.0) sec 12.7 H INR (0.9-1.1) 1.3 H APTT (21.0-27.5) sec 26.5 Sodium (136-145) mmol/L 136 Potassium (3.5-5.1) mmol/L 4.1 Chloride (98-107) mmol/L 104 Carbon Dioxide (21.0-32.0) mmol/L 23.2 Anion Gap (3-11) mmol/L 8.8 BUN (7-18) mg/dL 15 Creatinine (0.55-1.02) mg/dL 0.9 Est GFR (CKD-EPI 2020) (mL/min/1.73m2) 70.95 Glucose (74-106) mg/dL 156 H Calcium (8.5-10.1) mg/dL 8.8 Magnesium (1.8-2.4) mg/dL 1.8 Total Bilirubin (0.2-1.0) mg/dL 0.7 AST (15-37) U/L 33 ALT (14-59) U/L 27 Alkaline Phosphatase (46-116) U/L 169 H Troponin I (<or=60) ng/L < 50 NT-Pro-B Natriuret Pep (<300) pg/mL 1901 H Total Protein (6.4-8.2) g/dL 7.8 Albumin (3.4-5.0) g/dL 3.1 L HPI General Mode of arrival: ambulatory . Date/Time Provider Initiated Documentation: 05/29/22 10:29 . Limitations to Documentation: no limitations . Information obtained by: patient, RN notes reviewed and old records reviewed . HPI Narrative: 67-year-old female with a past medical history of diabetes, hypertension, ischemic cardiomyopathy and CHF, hyperlipidemia, history of CABG with mitral insufficiency, bipolar 1, GERD presents to the ER with 3 to 4 days of increased shortness of breath. She does report possible 5 pound weight gain over the last 5 days. She was instructed by her PCP to be evaluated further here in the ER. She does take furosemide 40 mg twice daily which she reports has been taking as prescribed. She does not have any pedal edema. She denies any chest pain, positive small dry cough that is nonproductive, denies any fever chills nausea vomiting diarrhea or problems urinating. Related Data Home Medications Medication Instructions Recorded Confirmed lamotrigine 100 mg tablet 100 mg PO BID 04/08/14 05/29/22 (Lamictal) nitroglycerin 0.4 mg sublingual 0.4 mg sublingual Q5 MIN PRN X3 07/01/15 05/29/22 tablet (Nitrostat) PRN Chest Pain #15 tabs aspirin 81 mg tablet,delayed 81 mg PO DAILY #30 tab-caps 05/29/16 05/29/22 release (Adult Low Dose Aspirin) rosuvastatin 40 mg tablet (Crestor) 40 mg PO QPM 01/03/18 05/29/22 multivitamin (Daily Multi-Vitamin 1 tab DAILY 01/04/18 05/29/22 tablet) vitamin B complex (B-Complex 1 tab PO DAILY 01/04/18 05/29/22 tablet) alprazolam 0.5 mg tablet 0.5 mg PO PRN PRN 11/05/18 05/29/22 citalopram 20 mg tablet 20 mg PO DAILY 11/05/18 05/29/22 naloxone 4 mg/actuation nasal 4 mg PRN PRN 11/21/18 05/29/22 spray (Narcan) magnesium L-lactate 84 mg 84 mg PO DAILY 12/23/18 05/29/22 tablet,extended release pantoprazole 40 mg tablet,delayed 40 mg PO DAILY 04/07/19 05/29/22 release insulin glargine 100 unit/mL 48 unit subcut QAM 10/06/19 05/29/22 subcutaneous solution (Lantus U-100 Insulin) cholecalciferol (vitamin D3) 25 1,000 unit PO DAILY 09/23/20 05/29/22 mcg (1,000 unit) capsule potassium chloride 10 mEq 10 meq PO BID 09/23/20 05/29/22 capsule,extended release lisinopril 10 mg tablet (Prinivil) 20 mg PO BID #90 tab-caps 10/07/20 05/29/22 clopidogrel 75 mg tablet 75 mg PO DAILY 12/27/20 05/29/22 furosemide 40 mg tablet 40 mg PO BID 12/27/20 05/29/22 isosorbide mononitrate 30 mg 60 mg PO HS #60 tabs 12/27/20 05/29/22 tablet,extended release 24 hr lamotrigine 25 mg tablet 25 mg PO BID 12/27/20 05/29/22 metoprolol succinate 50 mg 75 mg PO DAILY 12/27/20 05/29/22 tablet,extended release 24 hr insulin aspart U-100 100 unit/mL 7 unit subcut QAM 05/29/22 05/29/22 (3 mL) subcutaneous pen (Novolog FlexPen U-100 Insulin aspart) Previous Rx's Medication Instructions Recorded nitroglycerin 0.4 mg sublingual 0.4 mg sublingual Q5 MIN PRN X3 07/01/15 tablet (Nitrostat) PRN Chest Pain #15 tabs isosorbide mononitrate 30 mg 60 mg PO HS #60 tabs 12/27/20 tablet,extended release 24 hr Allergies Allergy/AdvReac Type Severity Reaction Status Date / Time ibuprofen AdvReac Severe severe Verified 05/29/22 11:29 vomiting General Stated Complaint: SOB CHRIS: 3 Review of Systems All systems reviewed & are unremarkable except as noted in HPI and below Constitutional Constitutional: Denies body ache(s), Denies chills and Denies fever(s) Cardiovascular Cardiovascular: Denies chest pain, Denies pedal edema, Denies leg edema, Denies lightheadedness, Denies radiating jaw, neck or arm pain, Denies palpitations and Reports dyspnea Respiratory Respiratory: Denies chest congestion, Reports cough, Denies hemoptysis, Denies excessive phlegm production, Reports dyspnea and Denies wheezing Gastrointestinal Gastrointestinal: Denies abdominal pain, Denies melena, Denies hematochezia, Denies diarrhea, Denies nausea and Denies vomiting Endocrine Endocrine: Denies palpitations Allergic/Immunologic Allergic/Immunologic: Denies wheezing PFSH All Active Problems (Updated 05/29/22 @ 12:23 by Saray Walker NP) Shortness of breath (Acute) Tobacco abuse (Acute) Bipolar 1 disorder (Acute) Chest pain, rule out acute myocardial infarction (Acute) Hx of CABG (Chronic) Discharge planning issues (Acute) DVT prophylaxis (Acute) Ischemic cardiomyopathy (Chronic) CHF (congestive heart failure) (Chronic) Diabetes mellitus type 2, controlled (Acute) Coronary atherosclerosis (Acute) Accelerating angina (Acute) Hyperlipidemia (Acute) Sinusitis (Acute) Fatigue (Acute) Mitral insufficiency (Acute) Medical History Diabetes Fibromyalgia GERD (gastroesophageal reflux disease) Hypertension Sleep apnea Surgical History Hx of CABG 2016 S/P mitral valve clip implantation Status post carpal tunnel release of both wrists Social History Smoking/Tobacco Use Status: Current every day Tobacco Type: cigarettes Quit status: considering quitting Smoking risk assessment performed?: Yes Drug use: Never Substance use type: does not use What type of physical activity do you participate in: other Details: cardiac rehab Do you feel safe at home: Yes Do you feel safe in your relationship?: Yes Additional Social history: Lives with her adult son. 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 Appears stated age. Normal body habitus. Head: Normocephalic, no trauma. Eyes: Pupils PERRL, Red reflex noted, EOM's intact. Eyelids symmetrical without lesions, discharge, or swelling. ENT: Bilateral TM's WNL, External ear normal to inspection, no mastoid TTP, swelling, or erythema, Nasal turbinates WNL, no nasal discharge. Normal dentition, Posterior pharynx WNL, no exudate. Chest: RRR, Normal S1, S2, distal pulses intact. Resp: Lungs clear to auscultation bilaterally, no wheezes, rales, or rhonchi. Abdomen: Soft, non-distended, Normoactive bowel sounds all 4 quads. Musculoskeletal: Normal gait, 5/5 strength to all four extremities. Skin: No suspicious rashes or lesions. Capillary refill less than 2 sec. Neurologic: Cranial nerves II-XII intact. Alert and oriented x 3. Motor: No deficits noted. Sensory: Intact bilaterally all 4 extremities. Reflexes: DTR's intact bilaterally.. Hematologic/Lymphatic: No ecchymosis, no lymphadenopathy. Course Vital Signs Vital signs: Vital Signs Temperature 36.6 C 05/29/22 10:38 Pulse 61 05/29/22 10:38 Respiratory Rate 16 05/29/22 10:38 Blood Pressure 111/57 L 05/29/22 10:38 Pulse Oximetry 97 05/29/22 10:38 Temperature 36.6 C 05/29/22 10:38 Temperature Source Skin 05/29/22 10:38 Pulse 61 05/29/22 10:38 Respiratory Rate 16 05/29/22 10:38 Respiratory Effort 05/29/22 10:46 Blood Pressure 111/57 L 05/29/22 10:38 Blood Pressure Position Supine 05/29/22 10:38 Pulse Oximetry 97 05/29/22 10:38 Oxygen Delivery Method Room Air 05/29/22 10:38 Oxygen Flow Rate 0 05/29/22 10:38 Pain Level 0 05/29/22 10:38
[2022-05-29 11:02] LABS: Abs Immature Grans 0.03 10^3/uL (0.0-0.06); Absolute Basophil Count 0.05 10^3/uL (0.0-0.2); Absolute Eosinophil Count 0.21 10^3/uL (0.0-0.7); Absolute Lymphocyte Count 1.71 10^3/uL (1.2-3.4); Absolute Monocyte Count 0.96 10^3/uL (0.1-0.8); Absolute Neutrophil Count 4.85 10^3/uL (1.2-6.7); Basophils % 0.6; Eosinophils % 2.7; HCT 34.9 % (36.0-46.0); HGB 11.1 g/dL (11.2-15.7); Immature Grans % 0.4; Lymphocytes % 21.9; MCH 29.1 pg (27.0-33.0); MCHC 31.8 % (32.0-36.0); MCV 92 fL (80-95); MPV 9.9 fL (8.0-11.0); Monocytes % 12.3; Neutrophils % 62.1; Platelet Count 247 10^3/uL (130-400); RBC 3.81 10^6/uL (3.93-5.22); RDW-SD 50.3 fL; WBC 7.81 10^3/uL (4.4-10.8)
[2022-05-29 11:17] LABS: INR 1.3 (0.9-1.1); PTT Activated 26.5 sec (21.0-27.5); Prothrombin Time 12.7 sec (9.3-11.0)
[2022-05-29 11:33] LABS: ALT 27 U/L (14-59); AST 33 U/L (15-37); Albumin 3.1 g/dL (3.4-5.0); Alkaline Phosphatase 169 U/L (46-116); Anion Gap 8.8 mmol/L (3-11); BUN 15 mg/dL (7-18); Bilirubin, Total 0.7 mg/dL (0.2-1.0); CO2 23.2 mmol/L (21.0-32.0); CREATININE 0.9 mg/dL (0.55-1.02); Calcium 8.8 mg/dL (8.5-10.1); Chloride 104 mmol/L (98-107); Estimated GFR 70.95 (mL/min/1.73m2); Glucose 156 mg/dL (74-106); Magnesium 1.8 mg/dL (1.8-2.4); NT-proBNP 1901 pg/mL (<300); Potassium 4.1 mmol/L (3.5-5.1); Sodium 136 mmol/L (136-145); Total Protein 7.8 g/dL (6.4-8.2); Troponin I < 50 ng/L (<or=60)
[2022-05-29 11:36] VITALS: RESP 14
[2022-05-29 11:37] VITALS: BP 120/57; PULSE 62; RESP 12; TEMP 36.5; O2SAT 95
[2022-05-29 12:23] VITALS: BP 115/55; PULSE 61; RESP 18; O2SAT 96
[2022-05-29 12:29] VITALS: BP 115/55; PULSE 62; RESP 14; TEMP 36.9; O2SAT 96
== END 2022-05-29 12:40 | disposition home or self-care (01) ==
PROVIDERS: Emergency Provider Registered Nurse Emergency; PCP Internal Medicine
DX: R06.02 Shortness of breath (principal); I50.9 Heart failure, unspecified; E11.9 Type 2 diabetes mellitus without complications; I11.0 Hypertensive heart disease with heart failure; Z20.822 Contact with and (suspected) exposure to COVID-19
CPT/HCPCS: 36415; 80053; 93005; 99283; 99284; 71045; 83735; 83880; 84484; 85025; 85610; 85730; 93010

== ENCOUNTER 2022-07-09 13:12 | Outpatient (REF) | payer MEDICARE, SELFPAY ==
[2022-07-09 15:09] LABS: Anion Gap 8.9 mmol/L (3-11); BUN 24 mg/dL (7-18); CO2 27.1 mmol/L (21.0-32.0); CREATININE 1.1 mg/dL (0.55-1.02); Calcium 9.4 mg/dL (8.5-10.1); Chloride 102 mmol/L (98-107); Estimated GFR 55.76 (mL/min/1.73m2); Glucose 180 mg/dL (74-106); NT-proBNP 1442 pg/mL (<300); Potassium 4.2 mmol/L (3.5-5.1); Sodium 138 mmol/L (136-145)
== END 2022-07-09 13:13 | disposition home or self-care (01) ==
LOC: NCHCN 13:12
PROVIDERS: PCP Internal Medicine; Visit Provider Internal Medicine
DX: I27.22 Pulmonary hypertension due to left heart disease (principal); I36.1 Nonrheumatic tricuspid (valve) insufficiency; R42 Dizziness and giddiness; I11.0 Hypertensive heart disease with heart failure; E11.9 Type 2 diabetes mellitus without complications
CPT/HCPCS: 80048; 83880

== ENCOUNTER 2022-07-13 01:12 | Outpatient (CLI) | payer MEDICARE, SELFPAY ==
--- NOTE | 2022-07-13 | DI.RAD_ITS ---
Exam(s) XR HAND LT COMPLETE EXAM: XR HAND LT COMPLETE CLINICAL HISTORY: LT FINGER PAIN, M79.645,4TH AND 5TH,S/P TRAUMA. TECHNIQUE: 2D digital imaging was performed of the left hand. Three views were obtained. AP, later al and oblique views were obtained. COMPARISON: No exams were available for comparison FINDINGS: BONES: On the lateral view there appear to be osseous densities at the anterior aspect of the base of the middle phalanx suspicious for an acute avulsed fracture. It is not well visualized on the later al view due to overlying fingers. No bony destructive lesion is seen. JOINTS: No dislocation present. SOFT TISSUE: Normal. IMPRESSION: Findings suspicious for a fracture of the anterior base of the middle phalanx of the left little fing er. Portions of this area are obscured on the lateral view. A targeted x-ray of the left 5th finger is recommended for further evaluation. DATA REPOSITORY: RADIATION DOSE DELIVERED:
== END 2022-07-13 01:32 ==
LOC: DI 01:13
PROVIDERS: PCP Internal Medicine; Visit Provider Internal Medicine
DX: M79.642 Pain in left hand (principal); M79.645 Pain in left finger(s); M20.092 Other deformity of left finger(s)
CPT/HCPCS: 73130

== ENCOUNTER 2022-07-23 10:29 | Outpatient (CLI) | payer MEDICARE, SELFPAY ==
--- NOTE | 2022-07-23 | DI.RAD_ITS ---
Exam(s) XR FOOT LT COMPLETE EXAM: XR FOOT LT COMPLETE CLINICAL HISTORY: LT FOOT PAIN, M79.672. TECHNIQUE: 2D digital imaging was performed. Three views. COMPARISON: CR XR FOOT RT COMPLETE from 08/14/2020 FINDINGS: BONES: Nondisplaced subacute appearing fracture at the distal metaphysis of the 3rd metatarsal. No a dditional fractures seen. Small heel spurs noted. No bony destructive lesion is seen. JOINTS: No dislocation present. Mild intertarsal degenerative changes. SOFT TISSUE: Normal. IMPRESSION: Subacute nondisplaced fracture of the distal 3rd metatarsal. DATA REPOSITORY: RADIATION DOSE DELIVERED:
== END 2022-07-23 10:49 ==
LOC: DI 10:37
PROVIDERS: PCP Internal Medicine; Visit Provider Family Medicine
DX: S92.335A Nondisplaced fracture of third metatarsal bone, left foot, initial encounter for closed fracture (principal); X58.XXXA Exposure to other specified factors, initial encounter
CPT/HCPCS: 73630

== ENCOUNTER 2022-07-30 01:32 | Outpatient (CLI) | payer MEDICARE, SELFPAY ==
--- NOTE | 2022-07-30 11:23 | DI.RAD_ITS ---
Exam(s) XR FOOT LT COMPLETE EXAM: XR FOOT LT COMPLETE CLINICAL HISTORY: FX OF LT FOOT, INITIAL ENCOUNTER FOR CLOSED FX, S92.573K. TECHNIQUE: 2D digital imaging was performed. Three views. COMPARISON: CR XR FOOT LT COMPLETE from 07/23/2022 FINDINGS: BONES: No change in alignment of 3rd metatarsal fracture. Increased callus formation. No additional fractures seen. Heel spurs again noted. No bony destructive lesion is seen. JOINTS: No dislocation present. SOFT TISSUE: Normal. IMPRESSION: Healing 3rd metatarsal fracture DATA REPOSITORY: RADIATION DOSE DELIVERED:
== END 2022-07-30 01:52 ==
LOC: DI 01:33
PROVIDERS: PCP Internal Medicine; Visit Provider Family Medicine
DX: M77.32 Calcaneal spur, left foot; S92.335D Nondisplaced fracture of third metatarsal bone, left foot, subsequent encounter for fracture with routine healing
CPT/HCPCS: 73630

== ENCOUNTER → 2022-08-11 12:40 | Outpatient (CLI) | payer MEDICARE, SELFPAY ==
--- NOTE | 2022-08-11 14:03 | DI.RAD_ITS ---
Exam(s) XR FOOT LT COMPLETE EXAM: XR FOOT LT COMPLETE CLINICAL HISTORY: OTHER FX OF LT FOOT, INITIAL ENCOUNTER FOR CLOSED FX, S92.578H. TECHNIQUE: 2D digital imaging was performed of the left foot. Three images were obtained. AP, obli que and lateral views were obtained. COMPARISON: CR XR FOOT LT COMPLETE from 07/30/2022 FINDINGS: BONES: There is a stable healing fracture involving the neck of the 3rd metatarsal. No new fracture is identified. No bony destructive lesion is seen. There is a small plantar calcaneal spur. There i s an enthesophyte at the posterior calcaneus. JOINTS: No dislocation present. SOFT TISSUE: Normal. IMPRESSION: 1. Stable healing 3rd metatarsal fracture. 2. No acute fracture or dislocation. DATA REPOSITORY: RADIATION DOSE DELIVERED:
== END ==
PROVIDERS: PCP Internal Medicine; Visit Provider Nurse Practitioner Family
DX: S92.331A Displaced fracture of third metatarsal bone, right foot, initial encounter for closed fracture (principal); X58.XXXA Exposure to other specified factors, initial encounter
CPT/HCPCS: 73630

== ENCOUNTER 2022-08-23 10:10 | Emergency (ER) | payer MEDICARE, SELFPAY ==
[2022-08-23] VITALS (57 sets, daily range): BP systolic 81–128; BP diastolic 32–92; PULSE 70–84; RESP 20; TEMP 36.8; O2SAT 91–100
[2022-08-23 10:44] LABS: Abs Immature Grans 0.03 10^3/uL (0.0-0.06); Absolute Basophil Count 0.06 10^3/uL (0.0-0.2); Absolute Eosinophil Count 0.23 10^3/uL (0.0-0.7); Absolute Monocyte Count 1.02 10^3/uL (0.1-0.8); Absolute Neutrophil Count 4.77 10^3/uL (1.2-6.7); Basophils % 0.6; Eosinophils % 2.3; HCT 40.9 % (36.0-46.0); HGB 13.3 g/dL (11.2-15.7); Immature Grans % 0.3; Lymphocytes % 39.6; MCH 28.4 pg (27.0-33.0); MCHC 32.5 % (32.0-36.0); MCV 87 fL (80-95); MPV 9.4 fL (8.0-11.0); Monocytes % 10.1; Neutrophils % 47.1; Platelet Count 285 10^3/uL (130-400); RBC 4.69 10^6/uL (3.93-5.22); RDW 16.6 % (11.7-14.6); RDW-SD 53.3 fL; WBC 10.11 10^3/uL (4.4-10.8)
[2022-08-23 11:05] LABS: ALT 25 U/L (14-59); AST 29 U/L (15-37); Albumin 3.8 g/dL (3.4-5.0); Alkaline Phosphatase 119 U/L (46-116); Anion Gap 9.1 mmol/L (3-11); BUN 28 mg/dL (7-18); Bilirubin, Total 0.4 mg/dL (0.2-1.0); CO2 27.9 mmol/L (21.0-32.0); Calcium 9.8 mg/dL (8.5-10.1); Chloride 102 mmol/L (98-107); Estimated GFR 62.52 (mL/min/1.73m2); Glucose 93 mg/dL (74-106); Sodium 139 mmol/L (136-145); Total Protein 8.8 g/dL (6.4-8.2)
[2022-08-23] MEDS: Dextrose 50%-Water 25 GM/50 ML SYR IVP (13:05)
--- NOTE | 2022-08-23 15:06 | W.ED.GENAD ---
Discharge Plan Disposition Patient Disposition: Home Condition: Stable Discharge Details Clinical Impression: Accidental overdose of insulin, Hypoglycemia, DM2 (diabetes mellitus, type 2) Primary Care Provider: Con Gardner ED Provider: Bob Morris Home Meds and New Rx's Prescriptions: Continued magnesium L-lactate 84 mg tablet extended release 84 mg PO DAILY pantoprazole 40 mg tablet,delayed release (DR/EC) 40 mg PO DAILY aspirin [Adult Low Dose Aspirin] 81 MG tablet,delayed release (DR/EC) 81 mg PO DAILY Qty: 30 lisinopril [Prinivil] 10 mg tablet 20 mg PO BID Qty: 90 lamotrigine [Lamictal] 100 MG tablet 100 mg PO BID nitroglycerin [Nitrostat] 0.4 MG tablet, sublingual 0.4 mg Sublingual Q5 MIN PRN X3 PRN (Reason: Chest Pain) Qty: 15 0RF potassium chloride 10 mEq capsule, extended release 10 meq PO BID Patient Comments: TAKE ONE CAPLET BY MOUTH TWICE DAILY cholecalciferol (vitamin D3) 25 mcg (1,000 unit) Capsule 1,000 unit PO DAILY insulin aspart U-100 [Novolog FlexPen U-100 Insulin] 100 unit/mL (3 mL) insulin pen 7 unit SUBCUT QAM rosuvastatin [Crestor] 40 MG tablet 40 mg PO QPM multivitamin [Daily Multi-Vitamin] 1 EACH tablet 1 tab DAILY vitamin B complex [B-Complex] 1 EACH tablet 1 tab PO DAILY alprazolam 0.5 mg Tablet 0.5 mg PO PRN PRN Rx Instructions: 1-2 times per day prn for anxiety citalopram 20 mg Tablet 20 mg PO DAILY insulin glargine [Lantus U-100 Insulin] 100 unit/mL solution 48 unit subcut QAM Patient Comments: 04/07/19 taking 50 mg daily gely naloxone [Narcan] 4 mg/actuation [place],Non-Aerosol 4 mg PRN PRN clopidogrel 75 mg tablet 75 mg PO DAILY lamotrigine 25 mg tablet 25 mg PO BID Patient Comments: TAKE ONE TABLET BY MOUTH TWICE DAILY TO BE USED WITH 100MG TABLETS furosemide 40 mg tablet 40 mg PO BID Patient Comments: pt states this was switched to torosemide instead. no longer taking lasix metoprolol succinate 50 mg tablet extended release 24 hr 75 mg PO DAILY Patient Comments: TAKE 1 AND 1/2 TABLETS BY MOUTH DAILY isosorbide mononitrate 30 mg Tablet Extended Release 24 Hr 60 mg PO HS Qty: 60 0RF torsemide 20 mg tablet 20 mg PO DAILY Patient Comments: TAKE 1 TABLET BY MOUTH TWICE DAILY IN THE MORNING AND EARLY AFTERNOON Discharge Instructions Instructions: What to Do if Your Blood Sugar is Low (ED) Additional Instructions: Monitor your blood glucose today every 1-2 hours. If you notice a significant decline or you dipped below normal, drink a sugary beverage and return to the ER immediately. Continue to have regular meals, small frequent meals with balance of carbohydrate, fat, and protein are recommended. Do not take your insulin for the remainder of the evening and do not use your insulin in the morning until you first check your blood sugars. Watch labels on your medications very carefully before injecting your insulin. Return immediately should you have new or worsening complaints. Return immediately if he notices significant decline in your glucose level or your level goes below 80. Follow-up with your doctor tomorrow morning. Referrals: Con Gardner MD [Primary Care Provider] - 1 day Discharge Data Discharge Date/Time-TO BE ENTERED AT DEPARTURE: 08/23/22 16:40 Medical Decision Making <ISA Santos - Last Filed: 08/24/22 15:41> This 47-year-old female presents with accidentally taking 48 units of her NovoLog in addition to her prescribed 48 units of Tresiba She has had a meal prior to arrival She states he feels lightheaded and slightly shaky Patient had IV placement and labs ordered secondary to symptomology Blood sugar will be checked every half an hour Initial blood sugars are stable, patient is eating food, however she does dip down to 68 and therefore 1 ampoule of D50 was administered, repeat blood sugar was 280 Approximately half an hour later dipped down to 133 She was encouraged to continue with p.o. supplementation No additional IV dextrose has been necessary Repeat blood sugar was 233 at approximately 1510 We will continue observation for an additional hour and if she is able to maintain stable glucose, she will be very cautious and diligent in checking her insulin prior to administration She will continue regular meals tonight and check her blood sugar before every 1-2 hours for the remainder of the evening She will hold her insulin and reinitiate in the morning after first checking her glucose She lives with her son who is able to monitor her overnight, she has been alert and oriented throughout the entirety of this encounter Care be transitioned to Dr. Bob Morris pending repeat glucose at 1545 and 1630 Medical Records Medical records reviewed: Yes I reviewed the patient's medical records. Lab Data Lab results reviewed: Yes I reviewed the patient's lab results. <Bob Morris MD - Last Filed: 08/23/22 16:31> Date: 08/23/22 Time: 16:25 Note: Patient care was signed out by ISA Sol. I reviewed case with her and agree with her assessment and plan. Patient was reassessed and blood sugar is now stabilized. I reviewed insulin dosing with the patient and she has identified a mechanism to help prevent this mistake from happening in the future. Plan for discharge with routine outpatient follow-up. Disposition decision was made weighing the risks and benefits of hospitalization versus outpatient treatment, the risk for further decompensation, and the patient's wishes. The patient was stable and requested discharge. Prior to discharge, my usual and customary return precautions were reviewed with the patient - this included follow-up instructions and reason to return to the emergency department if condition worsens, does not improve as expected, or other new concerns arise. HPI <ISA Santos - Last Filed: 08/24/22 15:41> General Date/Time Provider Initiated Documentation: 08/23/22 10:11. HPI Narrative: This 67-year-old female presents with report of accidental overdose on her insulin approximately 830 this morning she took 48 units of her NovoLog instead of the Tresiba. She also took 48 units of the prescribed Tresiba. She has eaten several meals since that time after talking with her doctor. She denies any attempts to harm self. She states she feels lightheaded and slightly weak she is unsure as to whether or not this may be contributed to anxiety. She states that her lowest glucose at home was 56 per patient. Related Data Home Medications Medication Instructions Recorded Confirmed lamotrigine 100 mg tablet 100 mg PO BID 04/08/14 08/23/22 (Lamictal) nitroglycerin 0.4 mg sublingual 0.4 mg sublingual Q5 MIN PRN X3 07/01/15 08/23/22 tablet (Nitrostat) PRN Chest Pain #15 tabs aspirin 81 mg tablet,delayed 81 mg PO DAILY #30 tab-caps 05/29/16 08/23/22 release (Adult Low Dose Aspirin) rosuvastatin 40 mg tablet (Crestor) 40 mg PO QPM 01/03/18 08/23/22 multivitamin (Daily Multi-Vitamin 1 tab DAILY 01/04/18 08/23/22 tablet) vitamin B complex (B-Complex 1 tab PO DAILY 01/04/18 08/23/22 tablet) alprazolam 0.5 mg tablet 0.5 mg PO PRN PRN 11/05/18 08/23/22 citalopram 20 mg tablet 20 mg PO DAILY 11/05/18 08/23/22 naloxone 4 mg/actuation nasal 4 mg PRN PRN 11/21/18 08/23/22 spray (Narcan) magnesium L-lactate 84 mg 84 mg PO DAILY 12/23/18 08/23/22 tablet,extended release pantoprazole 40 mg tablet,delayed 40 mg PO DAILY 04/07/19 08/23/22 release insulin glargine 100 unit/mL 48 unit subcut QAM 10/06/19 08/23/22 subcutaneous solution (Lantus U-100 Insulin) cholecalciferol (vitamin D3) 25 1,000 unit PO DAILY 09/23/20 08/23/22 mcg (1,000 unit) capsule potassium chloride 10 mEq 10 meq PO BID 09/23/20 08/23/22 capsule,extended release lisinopril 10 mg tablet (Prinivil) 20 mg PO BID #90 tab-caps 10/07/20 08/23/22 clopidogrel 75 mg tablet 75 mg PO DAILY 12/27/20 08/23/22 furosemide 40 mg tablet 40 mg PO BID 12/27/20 08/23/22 isosorbide mononitrate 30 mg 60 mg PO HS #60 tabs 12/27/20 08/23/22 tablet,extended release 24 hr lamotrigine 25 mg tablet 25 mg PO BID 12/27/20 08/23/22 metoprolol succinate 50 mg 75 mg PO DAILY 12/27/20 08/23/22 tablet,extended release 24 hr insulin aspart U-100 100 unit/mL 7 unit subcut QAM 05/29/22 08/23/22 (3 mL) subcutaneous pen (Novolog FlexPen U-100 Insulin aspart) torsemide 20 mg tablet 20 mg PO DAILY 08/23/22 08/23/22 Previous Rx's Medication Instructions Recorded nitroglycerin 0.4 mg sublingual 0.4 mg sublingual Q5 MIN PRN X3 07/01/15 tablet (Nitrostat) PRN Chest Pain #15 tabs isosorbide mononitrate 30 mg 60 mg PO HS #60 tabs 12/27/20 tablet,extended release 24 hr Allergies Allergy/AdvReac Type Severity Reaction Status Date / Time ibuprofen AdvReac Severe severe Verified 08/23/22 10:17 vomiting General Stated Complaint: Diabetes CHRIS: 3 PFSH <ISA Santos - Last Filed: 08/24/22 15:41> All Active Problems (Updated 08/23/22 @ 15:18 by ISA Santos) Accidental overdose of insulin (Acute) Hypoglycemia (Acute) DM2 (diabetes mellitus, type 2) (Acute) Tobacco abuse (Acute) Bipolar 1 disorder (Acute) Chest pain, rule out acute myocardial infarction (Acute) Hx of CABG (Chronic) Discharge planning issues (Acute) DVT prophylaxis (Acute) Ischemic cardiomyopathy (Chronic) CHF (congestive heart failure) (Chronic) Diabetes mellitus type 2, controlled (Acute) Coronary atherosclerosis (Acute) Accelerating angina (Acute) Hyperlipidemia (Acute) Sinusitis (Acute) Fatigue (Acute) Mitral insufficiency (Acute) Medical History Diabetes Fibromyalgia GERD (gastroesophageal reflux disease) Hypertension Sleep apnea Surgical History Hx of CABG 2016 S/P mitral valve clip implantation Status post carpal tunnel release of both wrists Social History Smoking/Tobacco Use Status: Current every day Tobacco Type: cigarettes Quit status: considering quitting Smoking risk assessment performed?: Yes Alcohol Intake: current Alcohol Intake frequency: 3 or more drinks per day Alcohol type: wine Drug use: Never Substance use type: does not use What type of physical activity do you participate in: other Details: cardiac rehab Do you feel safe at home: Yes Do you feel safe in your relationship?: Yes Additional Social history: Lives with her adult son. 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 History History Para 4 Hx # Term Pregnancies Multiple births Hx # Pregnancies Ectopic pregnancies AB induced Hx Number of Living Children AB spontaneous Exam <ISA Santos - Last Filed: 08/24/22 15:41> Const General: cooperative, comfortable and no acute distress Eyes Pupils: PERRL Resp Effort & Inspection: normal respiratory effort Auscultation: clear to auscultation bilaterally Cardio Rate: regular rate Rhythm: regular rhythm GI Inspection: normal to inspection Skin Other: No diaphoresis Neuro General: patient alert and patient oriented x3 Course <ISA Santos - Last Filed: 08/24/22 15:41> Vital Signs Vital signs: Vital Signs Temperature 36.8 C 08/23/22 10:12 Pulse 84 08/23/22 10:12 Respiratory Rate 20 08/23/22 10:12 Blood Pressure 122/51 L 08/23/22 10:12 Pulse Oximetry 98 08/23/22 10:12 Temperature 36.8 C 08/23/22 10:12 Temperature Source Oral 08/23/22 10:12 Pulse 71 08/23/22 12:15 Respiratory Rate 20 08/23/22 10:12 Respiratory Effort Normal, Non-Labored 08/23/22 10:14 Blood Pressure 113/49 L 08/23/22 12:15 Blood Pressure Mean 65 08/23/22 12:15 Blood Pressure Position Supine 08/23/22 10:12 Pulse Oximetry 92 08/23/22 12:20 Oxygen Delivery Method Room Air 08/23/22 10:12 Oxygen Flow Rate 0 08/23/22 10:12 Lab/Test Results Lab/Test Results: Laboratory Tests Range/Units 08/23/22 08/23/22 10:30 10:30 WBC (4.4-10.8) 10^3/uL 10.11 RBC (3.93-5.22) 10^6/uL 4.69 Hgb (11.2-15.7) g/dL 13.3 Hct (36.0-46.0) % 40.9 MCV (80-95) fL 87 MCH (27.0-33.0) pg 28.4 MCHC (32.0-36.0) % 32.5 RDW (11.7-14.6) % 16.6 H Plt Count (130-400) 10^3/uL 285 MPV (8.0-11.0) fL 9.4 Immature Gran % 0.3 Neutrophils % 47.1 Lymphocytes % 39.6 Monocytes % 10.1 Eosinophils % 2.3 Basophils % 0.6 Nucleated RBC % (0.0-0.3) % 0.0 Absolute Neutrophils (1.2-6.7) 10^3/uL 4.77 Absolute Lymphocytes (1.2-3.4) 10^3/uL 4.00 H Absolute Monocytes (0.1-0.8) 10^3/uL 1.02 H Absolute Eosinophils (0.0-0.7) 10^3/uL 0.23 Absolute Basophils (0.0-0.2) 10^3/uL 0.06 Sodium (136-145) mmol/L 139 Potassium (3.5-5.1) mmol/L 4.0 Chloride (98-107) mmol/L 102 Carbon Dioxide (21.0-32.0) mmol/L 27.9 Anion Gap (3-11) mmol/L 9.1 BUN (7-18) mg/dL 28 H Creatinine (0.55-1.02) mg/dL 1.0 Est GFR (CKD-EPI 2020) (mL/min/1.73m2) 62.52 Glucose (74-106) mg/dL 93 Calcium (8.5-10.1) mg/dL 9.8 Total Bilirubin (0.2-1.0) mg/dL 0.4 AST (15-37) U/L 29 ALT (14-59) U/L 25 Alkaline Phosphatase (46-116) U/L 119 H Total Protein (6.4-8.2) g/dL 8.8 H Albumin (3.4-5.0) g/dL 3.8 Critical Care Time <ISA Santos - Last Filed: 08/24/22 15:41> Critical Care Time Attestation: Approximately 45 minutes of critical care time secondary to acute gland hypoglycemia, dextrose administration, telemetry monitoring, diagnostic blood work interpretation Sign Out <ISA Santos - Last Filed: 08/24/22 15:41> Sign Out Data: Sign Out Comment: pt pending repeat glucose at 1615 and dc if remains stable Last updated by Raquel Sol PA at 08/23/22 15:51
[2022-08-23 15:22] LABS: Bilirubin Negative (Negative); Blood Negative (Negative); Clarity Clear (Clear); Glucose Negative (Negative); Ketones Negative (Negative); Leukocyte Esterase Negative (Negative); Nitrite Negative (Negative); Specific Gravity 1.015 (1.005-1.025); Urobilinogen 0.2 mg/dL (Up to 0.2)
== END 2022-08-23 16:40 | disposition home or self-care (01) ==
PROVIDERS: Physician Assistant; Emergency Provider Student in an Organized Health Care Education/Training Program; PCP Internal Medicine
DX: E11.649 Type 2 diabetes mellitus with hypoglycemia without coma (principal); T38.3X1A Poisoning by insulin and oral hypoglycemic [antidiabetic] drugs, accidental (unintentional), initial encounter; I10 Essential (primary) hypertension; Z79.4 Long term (current) use of insulin; Z95.1 Presence of aortocoronary bypass graft; Z79.82 Long term (current) use of aspirin
CPT/HCPCS: 36415; 36416; 80053; 82962; 99291; 81003; 85025

== ENCOUNTER 2022-09-03 14:56 | Outpatient (CLI) | payer MEDICARE, SELFPAY ==
--- NOTE | 2022-09-03 14:00 | DI.RAD_ITS ---
Exam(s) XR FOOT LT COMPLETE EXAM: XR FOOT LT COMPLETE CLINICAL HISTORY: f/u fx. TECHNIQUE: 2D digital imaging was performed. Three views. COMPARISON: CR XR FOOT LT COMPLETE from 08/11/2022 FINDINGS: There has been no change in the alignment of the distal 3rd metatarsal fracture. There has been cont inued healing. No new abnormalities. He heel spurs noted. IMPRESSION: Healing fracture 3rd metatarsal. DATA REPOSITORY: RADIATION DOSE DELIVERED:
== END 2022-09-03 14:57 | disposition home or self-care (01) ==
LOC: DIORS 14:56
PROVIDERS: PCP Internal Medicine; Referring Provider Family Medicine; Visit Provider Physician Assistant
DX: S92.335D Nondisplaced fracture of third metatarsal bone, left foot, subsequent encounter for fracture with routine healing; X58.XXXD Exposure to other specified factors, subsequent encounter; S69.92XD Unspecified injury of left wrist, hand and finger(s), subsequent encounter
CPT/HCPCS: 99213; 73630

== ENCOUNTER 2022-09-30 01:32 | Outpatient (CLI) | payer MEDICARE, SELFPAY ==
--- NOTE | 2022-09-30 09:30 | DI.MAMMO_ITS ---
Exam(s) MAMMO DIAGNOSTIC BI EXAM: MAMMO DIAGNOSTIC BI CLINICAL HISTORY: ABNL LT MAMMO, 6-MO F/U, R92.8 TECHNIQUE: Mammograms were interpreted according to the usual protocol including computer analysis w [employer] CAD system, tomosynthesis and C-view imaging. COMPARISON: 2013 through 2021 FINDINGS: The breasts are composed of scattered fibroglandular densities, Breast Density category B. No suspicious masses or suspicious microcalcifications are seen. No skin thickening or abnormal axillary lymph nodes are seen. There has been no significant change from prior exams. IMPRESSION: BI-RADS Category 1, Negative mammogram Yearly screening mammography is recommended. Breast Density - Category B, scattered fibroglandular densities. A negative radiographic report should not delay biopsy if a dominant or clinically suspicious mass is present. Up to ten percent of cancers are not identified on mammography. A negative report may reinforce clinical impression. Adenosis and dense breasts may obscure an underlying neoplasm. False positive reports average 6 to 10%. Patient will receive a letter notifying them of these results.
== END 2022-09-30 01:52 ==
LOC: DI 01:33
PROVIDERS: PCP Internal Medicine; Visit Provider Internal Medicine
DX: R92.8 Other abnormal and inconclusive findings on diagnostic imaging of breast (principal)
CPT/HCPCS: 77062; 77066; G0279

== ENCOUNTER 2022-09-30 09:54 | Emergency (ER) | payer MEDICARE, SELFPAY ==
[2022-09-30 10:00] VITALS: BP 112/49; PULSE 72; RESP 18; TEMP 36.9; O2SAT 98
--- NOTE | 2022-09-30 10:15 | DI.CT_ITS ---
Exam(s) CT ABDOMEN PELVIS WO EXAM: CT ABDOMEN PELVIS WO CLINICAL HISTORY: right flank pain, concern for kidney stone. TECHNIQUE: Imaging Protocol: Axial computed tomography images with coronal and sagittal reformatted images were created and reviewed. Oral: / no COMPARISON: CT CT THORAX CTA from 12/26/2020 CT abdomen pelvis 03 January 2019 FINDINGS: ABDOMEN: Lung Bases: Normal where visualized. Liver: Normal density. No measurable mass. Gallbladder and biliary tract: No radiodense calculus or dilation. Pancreas: Normal density, no abnormal calcifications or inflammatory process. Spleen: Normal. Kidneys: Normal size, contour and axis. No radiodense stones or obstructive uropathy. No masses seen. Adrenal glands: No masses seen. Lymph nodes: Within normal limits. Abdominal Aorta: Abdominal portion non-dilated. Atherosclerotic changes of the aorta and iliac arteri es PELVIS: Bladder: Symmetric distention, no gross wall thickening. Bowel: No obstruction or bowel wall thickening. Appendix normal. Normal quantity of stool. Peritoneal cavity: No ascites, collection or mesenteric inflammatory response. Reproductive organs: Status post hysterectomy. Bones: Degenerative changes, greatest at L5-S1 1. IMPRESSION: Unremarkable CT scan of the abdomen and pelvis. No evidence of urinary tract calculi or hydronephros is. RADIATION DOSE DELIVERED: 1,052.52mGy.cm Total DLP DATA REPOSITORY: All CT scans at this facility are submitted to the National Radiology Data Registry (NRDR) Dose Index Registry (DIR) with the [employer] ([employer]). RADIATION OPTIMIZATION: All CT scans at this facility use at least one of these dose optimization te chniques: automated exposure control; mA and/or kV adjustment per patient size (includes targeted exa ms where dose is matched to clinical indication); or iterative reconstruction.
--- NOTE | 2022-09-30 10:15 | DI.RAD_ITS ---
Exam(s) XR CHEST 2V PA LATERAL EXAM: XR CHEST 2V PA LATERAL CLINICAL HISTORY: right flank pain TECHNIQUE: 2D digital imaging was performed. COMPARISON: CR XR PORTABLE CHEST AP from 05/29/[address] ABDOMEN PELVIS WO from 09/30/2022 FINDINGS: HEART: Enlarged, unchanged. Aorta: Not dilated. PULMONARY VASCULATURE: Normal. LUNGS: Clear. PLEURAL SPACE: No pleural effusion or pneumothorax. BONE:Unremarkable for age. Sternal wires. IMPRESSION: Cardiomegaly. No acute abnormality. DATA REPOSITORY: RADIATION DOSE DELIVERED:
--- NOTE | 2022-09-30 10:19 | ED.GENADUL_ITS ---
Discharge Plan Disposition Patient Disposition: Home Condition: Improving Discharge Details Clinical Impression: Back pain Primary Care Provider: Con Gardner ED Provider: Gui Alejandro Home Meds and New Rx's Prescriptions: New lidocaine [Lidoderm] 5 % adhesive patch,medicated 1 patch topical DAILY Qty: 15 0RF Rx Instructions: leave on most painful area for up to 12 hrs No Action magnesium L-lactate 84 mg tablet extended release 84 mg PO DAILY pantoprazole 40 mg tablet,delayed release (DR/EC) 40 mg PO DAILY aspirin [Adult Low Dose Aspirin] 81 MG tablet,delayed release (DR/EC) 81 mg PO DAILY Qty: 30 tramadol 50 mg tablet 50 mg PO BID PRN Patient Comments: pt states no longer taking insulin degludec [Tresiba FlexTouch U-100] 100 unit/mL (3 mL) insulin pen 45 unit subcut DAILY acetaminophen-codeine 300-30 mg tablet 1 tab PO Q6H PRN insulin aspart U-100 [Novolog FlexPen U-100 Insulin] 100 unit/mL (3 mL) insulin pen 10 unit SUBCUT QAM cyclobenzaprine 10 mg tablet 10 mg PO HS PRN lisinopril [Prinivil] 10 mg tablet 10 mg PO BID Qty: 90 lamotrigine [Lamictal] 100 MG tablet 100 mg PO BID nitroglycerin [Nitrostat] 0.4 MG tablet, sublingual 0.4 mg Sublingual Q5 MIN PRN X3 PRN (Reason: Chest Pain) Qty: 15 0RF potassium chloride 10 mEq capsule, extended release 10 meq PO BID Patient Comments: TAKE ONE CAPLET BY MOUTH TWICE DAILY cholecalciferol (vitamin D3) 25 mcg (1,000 unit) Capsule 1,000 unit PO DAILY rosuvastatin [Crestor] 40 MG tablet 40 mg PO QPM multivitamin [Daily Multi-Vitamin] 1 EACH tablet 1 tab DAILY vitamin B complex [B-Complex] 1 EACH tablet 1 tab PO DAILY alprazolam 0.5 mg Tablet 0.5 mg PO PRN PRN Rx Instructions: 1-2 times per day prn for anxiety citalopram 20 mg Tablet 20 mg PO DAILY insulin glargine [Lantus U-100 Insulin] 100 unit/mL solution 48 unit subcut QAM Patient Comments: 04/07/19 taking 50 mg daily gely naloxone [Narcan] 4 mg/actuation Powell,Non-Aerosol 4 mg PRN PRN clopidogrel 75 mg tablet 75 mg PO DAILY metoprolol succinate 50 mg tablet extended release 24 hr 75 mg PO DAILY Patient Comments: TAKE 1 AND 1/2 TABLETS BY MOUTH DAILY isosorbide mononitrate 30 mg Tablet Extended Release 24 Hr 60 mg PO HS Qty: 60 0RF torsemide 20 mg tablet 20 mg PO BID Patient Comments: TAKE 1 TABLET BY MOUTH TWICE DAILY IN THE MORNING AND EARLY AFTERNOON Discharge Instructions Instructions: Back Pain (ED) Additional Instructions: Please follow-up with your primary care physician. Please return to the emergency department for any worsening symptom Medical Decision Making 67-year-old female history of diabetes presents with right flank pain associate with intermittent nausea without vomiting. No chest pain or shortness of fracisco ath. Patient is afebrile nontoxic however endorses her blood sugars been running high. Consider kidney stone versus early pyelonephritis versus UTI versus lower lobe pneumonia versus viral syndrome versus musculoskeletal pain. Low suspicion for PE or aortic pathology. Will obtain screening labs chest x- ray CT abdomen pelvis analgesia fluids antiemetics close reassessment. 13: 15 patient resting comfortably has got relief from medications. No evidence of kidney stone or UTI. No evidence of pyelonephritis. Blood sugar relatively normal. Consider musculoskeletal pain HPI General Date/Time Provider Initiated Documentation: 09/30/22 09:58 . HPI Narrative: 67-year-old female presents with right flank pain over the last day associate with intermittent nausea. Denies urinary symptoms. Denies chest pain or trouble breathing. Patient has a history of diabetes, has noted that her blood sugars been elevated Related Data Home Medications Medication Instructions Recorded Confirmed lamotrigine 100 mg tablet 100 mg PO BID 04/08/14 09/30/22 (Lamictal) nitroglycerin 0.4 mg sublingual 0.4 mg sublingual Q5 MIN PRN X3 07/01/15 09/30/22 tablet (Nitrostat) PRN Chest Pain #15 tabs aspirin 81 mg tablet,delayed 81 mg PO DAILY #30 tab-caps 05/29/16 09/30/22 release (Adult Low Dose Aspirin) rosuvastatin 40 mg tablet (Crestor) 40 mg PO QPM 01/03/18 09/30/22 multivitamin (Daily Multi-Vitamin 1 tab DAILY 01/04/18 09/30/22 tablet) vitamin B complex (B-Complex 1 tab PO DAILY 01/04/18 09/30/22 tablet) alprazolam 0.5 mg tablet 0.5 mg PO PRN PRN 11/05/18 09/30/22 citalopram 20 mg tablet 20 mg PO DAILY 11/05/18 09/30/22 naloxone 4 mg/actuation nasal 4 mg PRN PRN 11/21/18 09/30/22 spray (Narcan) magnesium L-lactate 84 mg 84 mg PO DAILY 12/23/18 09/30/22 tablet,extended release pantoprazole 40 mg tablet,delayed 40 mg PO DAILY 04/07/19 09/30/22 release insulin glargine 100 unit/mL 48 unit subcut QAM 10/06/19 09/30/22 subcutaneous solution (Lantus U-100 Insulin) cholecalciferol (vitamin D3) 25 1,000 unit PO DAILY 09/23/20 09/30/22 mcg (1,000 unit) capsule potassium chloride 10 mEq 10 meq PO BID 09/23/20 09/30/22 capsule,extended release clopidogrel 75 mg tablet 75 mg PO DAILY 12/27/20 09/30/22 isosorbide mononitrate 30 mg 60 mg PO HS #60 tabs 12/27/20 09/30/22 tablet,extended release 24 hr metoprolol succinate 50 mg 75 mg PO DAILY 12/27/20 09/30/22 tablet,extended release 24 hr torsemide 20 mg tablet 20 mg PO BID 08/23/22 09/30/22 acetaminophen 300 mg-codeine 30 mg 1 tab PO Q6H PRN 08/25/22 09/30/22 tablet cyclobenzaprine 10 mg tablet 10 mg PO HS PRN 08/25/22 09/30/22 insulin aspart U-100 100 unit/mL 10 unit subcut QAM 08/25/22 09/30/22 (3 mL) subcutaneous pen (Novolog FlexPen U-100 Insulin aspart) insulin degludec 100 unit/mL (3 45 unit subcut DAILY 08/25/22 09/30/22 mL) subcutaneous pen (Tresiba FlexTouch U-100 insulin) lisinopril 10 mg tablet (Prinivil) 10 mg PO BID #90 tab-caps 08/25/22 09/30/22 tramadol 50 mg tablet 50 mg PO BID PRN 08/25/22 09/03/22 lidocaine 5 % topical patch 1 patch topical DAILY #15 ea 09/30/22 (Lidoderm) Previous Rx's Medication Instructions Recorded nitroglycerin 0.4 mg sublingual 0.4 mg sublingual Q5 MIN PRN X3 07/01/15 tablet (Nitrostat) PRN Chest Pain #15 tabs isosorbide mononitrate 30 mg 60 mg PO HS #60 tabs 12/27/20 tablet,extended release 24 hr lidocaine 5 % topical patch 1 patch topical DAILY #15 ea 09/30/22 (Lidoderm) Allergies Allergy/AdvReac Type Severity Reaction Status Date / Time ezetimibe [From Vytorin] Allergy Unknown Verified 09/03/22 13:58 hydrocodone Allergy Unknown Verified 09/03/22 13:58 pravastatin Allergy Unknown Verified 09/03/22 13:58 simvastatin [From Vytorin] Allergy Unknown Verified 09/03/22 13:58 ibuprofen AdvReac Severe severe Verified 09/03/22 13:58 vomiting General Stated Complaint: FlankPain CHRIS: 3 Review of Systems Narrative: Review of Systems Constitutional: negative Eyes: negative ENT: negative Cardiovascular: negative Respiratory: negative Gastrointestinal: negative : Flank pain Musculoskeletal: negative Skin: negative Neurologic: negative Psych: negative PFSH All Active Problems (Updated 09/30/22 @ 13:15 by Gui Alejandro MD) Back pain (Acute) Injury of left little finger (Acute 07/13/22) Fracture of third metatarsal bone of left foot (Acute 07/13/22) Tobacco abuse (Acute) Bipolar 1 disorder (Acute) Chest pain, rule out acute myocardial infarction (Acute) Hx of CABG (Chronic) Discharge planning issues (Acute) DVT prophylaxis (Acute) Ischemic cardiomyopathy (Chronic) CHF (congestive heart failure) (Chronic) Diabetes mellitus type 2, controlled (Acute) Coronary atherosclerosis (Acute) Accelerating angina (Acute) Hyperlipidemia (Acute) Sinusitis (Acute) Fatigue (Acute) Mitral insufficiency (Acute) Medical History Diabetes Fibromyalgia GERD (gastroesophageal reflux disease) Hypertension Sleep apnea Surgical History Hx of CABG 2016 S/P mitral valve clip implantation Status post carpal tunnel release of both wrists Social History Smoking/Tobacco Use Status: Current every day Tobacco Type: cigarettes Quit status: considering quitting Smoking risk assessment performed?: Yes Alcohol Intake: current Alcohol Intake frequency: 0-2 drinks per day Alcohol type: wine Drug use: Never Substance use type: does not use What type of physical activity do you participate in: other Details: cardiac rehab Do you feel safe at home: Yes Do you feel safe in your relationship?: Yes History History Para 4 Hx # Term Pregnancies Multiple births Hx # Pregnancies Ectopic pregnancies AB induced Hx Number of Living Children AB spontaneous Exam Narrative Exam Narrative: Physical Examination General: alert, awake, cooperative, resting comfortably, no acute distress HEENT: normocephalic, atraumatic; PERRL, EOM intact, conjunctiva normal; no nasal discharge; moist mucous membranes, oral and pharyngeal mucosa normal, tolerating secretions Neck: supple, trachea midline; full ROM Chest: normal to inspection Respiratory: normal respiratory effort, speaking in full sentences, clear to auscultation, no wheezing, rales or rhonchi Cardiac: regular rate, regular rhythm, S1S2 intact, no murmurs rubs or gallops GI: abdomen soft, non-tender, non-distended; no palpable mass or hepatosplenomegaly Back: No CVA tenderness Skin: no lesions, rashes or trauma appreciated Neuro: AAOx3, normal speech, moving all extremities Psych: Appropriate mood and affect Course Vital Signs Vital signs: Vital Signs Temperature 36.9 C 09/30/22 10:00 Pulse 72 09/30/22 10:00 Respiratory Rate 18 09/30/22 10:00 Blood Pressure 112/49 L 09/30/22 10:00 Pulse Oximetry 98 09/30/22 10:00 Temperature 36.9 C 09/30/22 10:00 Temperature Source Skin 09/30/22 10:00 Pulse 72 09/30/22 10:00 Respiratory Rate 18 09/30/22 10:00 Blood Pressure 112/49 L 09/30/22 10:00 Blood Pressure Position Sitting 09/30/22 10:00 Pulse Oximetry 98 09/30/22 10:00 Oxygen Delivery Method Room Air 09/30/22 10:00 Oxygen Flow Rate 0 09/30/22 10:00 Pain Level 3 09/30/22 10:00 Comment 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
[2022-09-30] MEDS: Ondansetron 4 MG/2 ML VIAL IVP (10:32)
[2022-09-30] MEDS: Normal Saline 1,000 ML 1000 ML IV (10:32)
[2022-09-30] MEDS: ACETAMINOPHEN 1,000 MG/100 ML BTL 400 MG IVPB (10:32)
[2022-09-30 10:33] LABS: Abs Immature Grans 0.04 10^3/uL (0.0-0.06); Absolute Basophil Count 0.04 10^3/uL (0.0-0.2); Absolute Eosinophil Count 0.18 10^3/uL (0.0-0.7); Absolute Lymphocyte Count 1.68 10^3/uL (1.2-3.4); Absolute Monocyte Count 0.83 10^3/uL (0.1-0.8); Basophils % 0.5; Eosinophils % 2.3; HCT 40.4 % (36.0-46.0); HGB 13.2 g/dL (11.2-15.7); Immature Grans % 0.5; Lymphocytes % 21.9; MCH 29.2 pg (27.0-33.0); MCHC 32.7 % (32.0-36.0); MCV 89 fL (80-95); MPV 9.4 fL (8.0-11.0); Monocytes % 10.8; Platelet Count 267 10^3/uL (130-400); RBC 4.52 10^6/uL (3.93-5.22); RDW 15.9 % (11.7-14.6); RDW-SD 52.6 fL; WBC 7.67 10^3/uL (4.4-10.8)
[2022-09-30 10:49] LABS: ALT 22 U/L (14-59); AST 22 U/L (15-37); Albumin 3.6 g/dL (3.4-5.0); Alkaline Phosphatase 106 U/L (46-116); Anion Gap 9.8 mmol/L (3-11); BUN 18 mg/dL (7-18); Bilirubin, Total 0.4 mg/dL (0.2-1.0); CO2 27.2 mmol/L (21.0-32.0); CREATININE 0.8 mg/dL (0.55-1.02); Calcium 9.4 mg/dL (8.5-10.1); Chloride 103 mmol/L (98-107); Estimated GFR 81.72 (mL/min/1.73m2); Glucose 149 mg/dL (74-106); Potassium 3.9 mmol/L (3.5-5.1); Sodium 140 mmol/L (136-145); Total Protein 8.4 g/dL (6.4-8.2)
[2022-09-30 12:15] LABS: Bilirubin Negative (Negative); Blood Negative (Negative); Clarity Clear (Clear); Glucose Negative (Negative); Ketones Negative (Negative); Leukocyte Esterase Negative (Negative); Nitrite Negative (Negative); Urobilinogen 0.2 mg/dL (Up to 0.2)
[2022-09-30 13:30] VITALS: BP 142/80; PULSE 72; RESP 18; TEMP 36.8; O2SAT 99
== END 2022-09-30 13:26 | disposition home or self-care (01) ==
PROVIDERS: Emergency Provider Emergency Medicine; PCP Internal Medicine
DX: M54.9 Dorsalgia, unspecified (principal); E11.9 Type 2 diabetes mellitus without complications; Z79.4 Long term (current) use of insulin; M79.7 Fibromyalgia; I10 Essential (primary) hypertension; F17.200 Nicotine dependence, unspecified, uncomplicated
CPT/HCPCS: 36415; 77062; 77066; 80053; 96365; 96375; 99283; 71046; 74176; 81003; 85025; 99284; G0279; J0131; J2405

== ENCOUNTER 2022-10-19 08:57 | Emergency (ER) | payer MEDICARE, SELFPAY ==
[2022-10-19 09:00] VITALS: PULSE 78; RESP 16; TEMP 37; O2SAT 100
--- NOTE | 2022-10-19 09:00 | RT.EKG_ITS ---
APPROVED REPORT Exam: Resting ECG Reason for Exam: over dose Patient Location: E HR:75 bpm ECG Measurements Heart Rate 75 AXIS MN 175 P 60 QRSd 104 QRS -10 QT 400 T 60 QTc 446 Conclusion Sinus rhythm...normal P axis, V-rate 60- 99 Inferior infarct, old...Q >35mS, II III aVF
--- NOTE | 2022-10-19 09:00 | DI.RAD_ITS ---
Exam(s) XR PORTABLE CHEST AP EXAM: XR PORTABLE CHEST AP CLINICAL HISTORY: chest pain TECHNIQUE: 2D digital imaging was performed of the chest. One image was obtained. An AP view was ob tained. COMPARISON: CR XR CHEST 2V PA LATERAL from 09/30/2022 FINDINGS: MEDIASTINUM: Normal. HEART: Cardiomegaly. PULMONARY VASCULATURE: Normal. LUNGS: Clear. PLEURAL SPACE: No pleural effusion or pneumothorax. BONE:Within normal limits for the patient's age. Sternal wires are in place. OTHER FINDINGS:Normal. IMPRESSION: No acute pulmonary findings. DATA REPOSITORY: RADIATION DOSE DELIVERED:
[2022-10-19] MEDS: DEXTROSE 5%-LACTATED RINGERS 1,000 ML 200 ML IV (09:15)
[2022-10-19 09:18] LABS: Abs Immature Grans 0.04 10^3/uL (0.0-0.06); Absolute Basophil Count 0.06 10^3/uL (0.0-0.2); Absolute Eosinophil Count 0.26 10^3/uL (0.0-0.7); Absolute Monocyte Count 0.56 10^3/uL (0.1-0.8); Absolute Neutrophil Count 4.75 10^3/uL (1.2-6.7); Basophils % 0.7; Eosinophils % 3.2; HCT 43.4 % (36.0-46.0); HGB 14.5 g/dL (11.2-15.7); Immature Grans % 0.5; Lymphocytes % 30.6; MCH 30.3 pg (27.0-33.0); MCHC 33.4 % (32.0-36.0); MCV 91 fL (80-95); MPV 9.5 fL (8.0-11.0); Monocytes % 6.9; Neutrophils % 58.1; Platelet Count 290 10^3/uL (130-400); RBC 4.79 10^6/uL (3.93-5.22); RDW 15.3 % (11.7-14.6); RDW-SD 50.9 fL; WBC 8.17 10^3/uL (4.4-10.8)
--- NOTE | 2022-10-19 09:20 | ED.GENADUL_ITS ---
Discharge Plan Disposition Patient Disposition: Transfer-Acute Inpatient Care Specific Acute Inpt Facility: [facility] Discharge Details Chief Complaint: Diabetes Clinical Impression: Acute non-ST elevation myocardial infarction (NSTEMI), Chest pain, Hypoglycemia Primary Care Provider: Con Gardner ED Provider: Chintan Mock Home Meds and New Rx's Prescriptions: No Action magnesium L-lactate 84 mg tablet extended release 84 mg PO DAILY pantoprazole 40 mg tablet,delayed release (DR/EC) 40 mg PO DAILY aspirin [Adult Low Dose Aspirin] 81 MG tablet,delayed release (DR/EC) 81 mg PO DAILY Qty: 30 tramadol 50 mg tablet 50 mg PO BID PRN Patient Comments: pt states no longer taking insulin degludec [Tresiba FlexTouch U-100] 100 unit/mL (3 mL) insulin pen 45 unit subcut DAILY acetaminophen-codeine 300-30 mg tablet 1 tab PO Q6H PRN insulin aspart U-100 [Novolog FlexPen U-100 Insulin] 100 unit/mL (3 mL) insulin pen 10 unit SUBCUT QAM cyclobenzaprine 10 mg tablet 10 mg PO HS PRN lisinopril [Prinivil] 10 mg tablet 10 mg PO BID Qty: 90 lamotrigine [Lamictal] 100 MG tablet 100 mg PO BID nitroglycerin [Nitrostat] 0.4 MG tablet, sublingual 0.4 mg Sublingual Q5 MIN PRN X3 PRN (Reason: Chest Pain) Qty: 15 0RF potassium chloride 10 mEq capsule, extended release 10 meq PO BID Patient Comments: TAKE ONE CAPLET BY MOUTH TWICE DAILY cholecalciferol (vitamin D3) 25 mcg (1,000 unit) Capsule 1,000 unit PO DAILY rosuvastatin [Crestor] 40 MG tablet 40 mg PO QPM multivitamin [Daily Multi-Vitamin] 1 EACH tablet 1 tab DAILY vitamin B complex [B-Complex] 1 EACH tablet 1 tab PO DAILY alprazolam 0.5 mg Tablet 0.5 mg PO PRN PRN Rx Instructions: 1-2 times per day prn for anxiety citalopram 20 mg Tablet 20 mg PO DAILY insulin glargine [Lantus U-100 Insulin] 100 unit/mL solution 48 unit subcut QAM Patient Comments: not taking naloxone [Narcan] 4 mg/actuation [place],Non-Aerosol 4 mg PRN PRN clopidogrel 75 mg tablet 75 mg PO DAILY metoprolol succinate 50 mg tablet extended release 24 hr 75 mg PO DAILY Patient Comments: TAKE 1 AND 1/2 TABLETS BY MOUTH DAILY isosorbide mononitrate 30 mg Tablet Extended Release 24 Hr 60 mg PO HS Qty: 60 0RF torsemide 20 mg tablet 20 mg PO BID Patient Comments: TAKE 1 TABLET BY MOUTH TWICE DAILY IN THE MORNING AND EARLY AFTERNOON lidocaine [Lidoderm] 5 % adhesive patch,medicated 1 patch topical DAILY Qty: 15 0RF Rx Instructions: leave on most painful area for up to 12 hrs Medical Decision Making This is a 67-year-old female history of CAD status post CABG, CHF, bipolar 1, type 2 diabetes on long-acting insulin (degludec/tresiba 45 units daily) and short acting insulin (NovoLog/aspart sliding scale up to 10 units with meals) presents with chest pressure and an accidental overdose of her aspart/NovoLog. She accidentally took too much of her mealtime insulin. No hypoglycemia now but will do blood sugars every 30 minutes and put her on maintenance fluids with some sugar in it. She has a little bit nausea and does not want to eat and says she has not eaten this morning. We will give her some nausea medication and encourage p.o. intake. We will continue to monitor her blood sugars for 3 to 5 hours. She is endorsing this chest pressure. Says it does feel different than her previous heart attacks. ACS remains within the differential. Initial EKG is unremarkable with no ischemic changes. Will send cardiac enzymes and certainly will repeat as her symptoms started that 2 AM. We will get broad labs look for electrolyte or metabolic cause of the patient's symptoms. Will get chest x-ray to evaluate for pneumonia or pneumothorax. Doubt other causes of the patient's pressure at this time and more likely to have a benign cause of her chest pressure but this would be a diagnosis of exclusion. We will continue to monitor while awaiting initial testing and response to IV fluids with glucose and reevaluate sugars every 30 minutes. 0130 EKG unremarkable. Labs mostly unremarkable and glucoses have been stable. Has an elevated troponin here. Still elevated and increasing on repeat. She is symptom-free otherwise. Certainly concerning for ACS and NSTEMI given the elevated troponin and started on heparin drip. No role for more aggressive pain regimen given patient is symptom-free now. I spoke with [facility] Radha Courtney at [facility] and patient will be transferred to their hospital with Dr. Rachel accepting. Patient remains hemodynamically stable and currently without any chest pressure. Agreeable to go to [facility]. Will go by ambulance on heparin drip. Denying any other complaints and blood sugar has been stable here despite the novolog injection and she is tolerating p.o. well. Outside of the duration of action of novolog so unlikely to experience significant hypoglycemia from here. Medical Records Medical records reviewed: Yes I reviewed the patient's medical records. Imaging Data Radiologic Study: Imaging: X-Ray (chest) My impression: Unremarkable Radiologist's impression: Unremarkable chest x-ray Lab Data Lab results reviewed: Yes I reviewed the patient's lab results. Labs: Elevated troponin. Glucose has been stable. Otherwise unremarkable lab work-up ECG Data Attestation: I personally reviewed and interpreted this ECG (s) as follows: Prior ECG tracings: available for review Interpretation: Normal sinus rhythm with normal rate. No significant ST segment changes though he may have some ST depressions in the inferolateral leads but otherwise unremarkable EKG. HPI General Mode of arrival: ambulatory . Date/Time Provider Initiated Documentation: 10/19/22 08:59 . Limitations to Documentation: no limitations . Information obtained by: patient . HPI Narrative: This is a 67-year-old female history of CAD status post CABG, CHF, bipolar 1, type 2 diabetes on long-acting insulin (degludec/tresiba 45 units daily) and short acting insulin (NovoLog/aspart sliding scale up to 10 units with meals) presents with chest pressure and an accidental overdose of her aspart/NovoLog. She states she woke up at around 2 AM with some chest pressure. Had a little bit of nausea with this. No chest pain or sweatiness. No cough or fever. She says she has had a heart attack in the past and this feels a little bit different but she was worried about it. She says she was little stressed out this morning from this discomfort that never really went away. Denies any other pain. She says because of the stress she accidentally messed up her insulin. She accidentally injected 47 units of her aspart/NovoLog instead of her degludec/Tresiba. She immediately realized the problem and came here. Still endorsing of chest pressure as above. Denying any other complaints. Related Data Home Medications Medication Instructions Recorded Confirmed lamotrigine 100 mg tablet 100 mg PO BID 04/08/14 10/19/22 (Lamictal) nitroglycerin 0.4 mg sublingual 0.4 mg sublingual Q5 MIN PRN X3 07/01/15 10/19/22 tablet (Nitrostat) PRN Chest Pain #15 tabs aspirin 81 mg tablet,delayed 81 mg PO DAILY #30 tab-caps 05/29/16 10/19/22 release (Adult Low Dose Aspirin) rosuvastatin 40 mg tablet (Crestor) 40 mg PO QPM 01/03/18 10/19/22 multivitamin (Daily Multi-Vitamin 1 tab DAILY 01/04/18 10/19/22 tablet) vitamin B complex (B-Complex 1 tab PO DAILY 01/04/18 10/19/22 tablet) alprazolam 0.5 mg tablet 0.5 mg PO PRN PRN 11/05/18 10/19/22 citalopram 20 mg tablet 20 mg PO DAILY 11/05/18 10/19/22 naloxone 4 mg/actuation nasal 4 mg PRN PRN 11/21/18 10/19/22 spray (Narcan) magnesium L-lactate 84 mg 84 mg PO DAILY 12/23/18 10/19/22 tablet,extended release pantoprazole 40 mg tablet,delayed 40 mg PO DAILY 04/07/19 10/19/22 release insulin glargine 100 unit/mL 48 unit subcut QAM 10/06/19 09/30/22 subcutaneous solution (Lantus U-100 Insulin) cholecalciferol (vitamin D3) 25 1,000 unit PO DAILY 09/23/20 10/19/22 mcg (1,000 unit) capsule potassium chloride 10 mEq 10 meq PO BID 09/23/20 10/19/22 capsule,extended release clopidogrel 75 mg tablet 75 mg PO DAILY 12/27/20 10/19/22 isosorbide mononitrate 30 mg 60 mg PO HS #60 tabs 12/27/20 10/19/22 tablet,extended release 24 hr metoprolol succinate 50 mg 75 mg PO DAILY 12/27/20 10/19/22 tablet,extended release 24 hr torsemide 20 mg tablet 20 mg PO BID 08/23/22 10/19/22 acetaminophen 300 mg-codeine 30 mg 1 tab PO Q6H PRN 08/25/22 10/19/22 tablet cyclobenzaprine 10 mg tablet 10 mg PO HS PRN 08/25/22 10/19/22 insulin aspart U-100 100 unit/mL 10 unit subcut QAM 08/25/22 10/19/22 (3 mL) subcutaneous pen (Novolog FlexPen U-100 Insulin aspart) insulin degludec 100 unit/mL (3 45 unit subcut DAILY 08/25/22 10/19/22 mL) subcutaneous pen (Tresiba FlexTouch U-100 insulin) lisinopril 10 mg tablet (Prinivil) 10 mg PO BID #90 tab-caps 08/25/22 10/19/22 tramadol 50 mg tablet 50 mg PO BID PRN 08/25/22 10/19/22 lidocaine 5 % topical patch 1 patch topical DAILY #15 ea 09/30/22 10/19/22 (Lidoderm) Previous Rx's Medication Instructions Recorded nitroglycerin 0.4 mg sublingual 0.4 mg sublingual Q5 MIN PRN X3 07/01/15 tablet (Nitrostat) PRN Chest Pain #15 tabs isosorbide mononitrate 30 mg 60 mg PO HS #60 tabs 12/27/20 tablet,extended release 24 hr lidocaine 5 % topical patch 1 patch topical DAILY #15 ea 09/30/22 (Lidoderm) Allergies Allergy/AdvReac Type Severity Reaction Status Date / Time ezetimibe [From Vytorin] Allergy Unknown Verified 10/19/22 09:07 hydrocodone Allergy Unknown Verified 10/19/22 09:07 pravastatin Allergy Unknown Verified 10/19/22 09:07 simvastatin [From Vytorin] Allergy Unknown Verified 10/19/22 09:07 ibuprofen AdvReac Severe severe Verified 10/19/22 09:07 vomiting General Stated Complaint: Diabetes CHRIS: 3 Review of Systems Constitutional Constitutional: Denies chills, Denies fever(s) and Denies headache(s) Eyes Eyes: Denies change in vision ENT Ears, Nose, Mouth, and Throat: Denies headache(s) and Denies odynophagia Cardiovascular Cardiovascular: Reports chest pain and Denies dyspnea Respiratory Respiratory: Denies dyspnea Gastrointestinal Gastrointestinal: Denies abdominal pain, Denies diarrhea, Reports nausea, Denies odynophagia and Denies vomiting Genitourinary Genitourinary: Denies dysuria Musculoskeletal Musculoskeletal: Denies myalgias Integumentary/Breasts Skin/Breast: Denies changing lesions Neurologic Neurologic: Denies behavioral changes and Denies headache(s) Psychiatric Psychiatric: Denies behavioral changes Endocrine Endocrine: Denies heat intolerance Hematologic/Lymphatic Hematologic/Lymphatic: Denies lymphadenopathy PFSH All Active Problems (Updated 10/19/22 @ 14:15 by Chintan Mock MD) Back pain (Acute) Acute non-ST elevation myocardial infarction (NSTEMI) (Acute) Chest pain (Acute) Hypoglycemia (Acute) Injury of left little finger (Acute 07/13/22) Fracture of third metatarsal bone of left foot (Acute 07/13/22) Tobacco abuse (Acute) Bipolar 1 disorder (Acute) Chest pain, rule out acute myocardial infarction (Acute) Hx of CABG (Chronic) Discharge planning issues (Acute) DVT prophylaxis (Acute) Ischemic cardiomyopathy (Chronic) CHF (congestive heart failure) (Chronic) Diabetes mellitus type 2, controlled (Acute) Coronary atherosclerosis (Acute) Accelerating angina (Acute) Hyperlipidemia (Acute) Sinusitis (Acute) Fatigue (Acute) Mitral insufficiency (Acute) Medical History Diabetes Fibromyalgia GERD (gastroesophageal reflux disease) Hypertension Sleep apnea Surgical History Hx of CABG 2016 S/P mitral valve clip implantation Status post carpal tunnel release of both wrists Social History Smoking/Tobacco Use Status: Current every day Tobacco Type: cigarettes Quit status: considering quitting Smoking risk assessment performed?: Yes Alcohol Intake: current Alcohol Intake frequency: 0-2 drinks per day Alcohol type: wine Drug use: Never Substance use type: does not use What type of physical activity do you participate in: other Details: cardiac rehab Do you feel safe at home: Yes Do you feel safe in your relationship?: Yes History History Para 4 Hx # Term Pregnancies Multiple births Hx # Pregnancies Ectopic pregnancies AB induced Hx Number of Living Children AB spontaneous Exam Const General: cooperative Nutritional Appearance: average body habitus Orientation: alert, awake and oriented x3 HENMT Head: normal to inspection Ears: external ears normal Mouth: moist mucous membranes Eyes Pupils: PERRL EOM: EOM intact bilaterally and No nystagmus Neck Neck: full ROM and no tracheal deviation Chest Chest: normal inspection of the chest Resp Auscultation: clear to auscultation bilaterally Cardio Rate: regular rate Rhythm: regular rhythm GI Inspection: normal to inspection Palpation: soft, no guarding, not rigid and nontender Back/Spine/Pelvis Back: No no CVA tenderness Thoracic/Lumbar Spine: thoracic and lumbar spine normal to inspection Skin General skin exam: no rashes or lesions noted Neuro General: patient alert, patient awake and patient oriented x3 Cranial Nerves: CN's II-XI intact bilaterally, PERRL and no nystagmus Cognition: normal cognition Motor: muscle tone normal throughout and strength 5/5 throughout Sensory Exam: no sensory deficits noted Extrem General: normal to inspection Course Vital Signs Vital signs: Vital Signs Temperature 37.0 C 10/19/22 09:00 Pulse 78 10/19/22 09:00 Respiratory Rate 16 10/19/22 09:00 Pulse Oximetry 100 10/19/22 09:00 Temperature 37.0 C 10/19/22 09:00 Temperature Source Oral 10/19/22 09:00 Pulse 78 10/19/22 09:00 Respiratory Rate 16 10/19/22 09:00 Respiratory Effort Normal, Non-Labored 10/19/22 09:13 Blood Pressure Position Sitting 10/19/22 09:00 Pulse Oximetry 100 10/19/22 09:00 Oxygen Delivery Method Room Air 10/19/22 09:00 Oxygen Flow Rate 0 10/19/22 09:00 Critical Care Time Critical Care Time Critical Care Time: Yes Total Critical Care Time: 30 PAWSS Have you Been Recently Intoxicated or Drunk Within the Last 30 days?: No Have you Ever Experienced Previous Episodes of Alcohol Withdrawal?: No Have you ever Experienced Withdrawal Seizures?: No Have you ever Experienced Delirium Tremens(DT)s?: No Have you ever undergone Alcohol Rehabilitation Treatment (i.e, inpt ot outpatient treatment programs)?: No Have you ever Experienced Blackouts?: No Have you ever Combined Alcohol with other Downers within the last 90 days?: No Have you ever Combined Alcohol with any other Substance of Abuse during the last 90 days?: No Positive Blood Alcohol level on Presentation? [PCS.BAL]: No Evidence of Increased Autonomic Activity (i.e. HR>120, tremor, sweating, agitation, nausea)?: No Result: 0
[2022-10-19] MEDS: Ondansetron 4 MG/2 ML VIAL IVP (09:25)
[2022-10-19 09:37] LABS: INR 1.1 (0.9-1.1); PTT Activated 25.2 sec (21.5-31.9)
[2022-10-19 09:44] LABS: ALT 26 U/L (14-59); AST 25 U/L (15-37); Albumin 3.8 g/dL (3.4-5.0); Alkaline Phosphatase 128 U/L (46-116); Anion Gap 7.3 mmol/L (3-11); BUN 30 mg/dL (7-18); Bilirubin, Total 0.5 mg/dL (0.2-1.0); CO2 29.7 mmol/L (21.0-32.0); CREATININE 0.9 mg/dL (0.55-1.02); Calcium 9.8 mg/dL (8.5-10.1); Chloride 101 mmol/L (98-107); Estimated GFR 70.95 (mL/min/1.73m2); Glucose 115 mg/dL (74-106); Lipase 29 U/L (16-77); Magnesium 2.2 mg/dL (1.8-2.4); NT-proBNP 1299 pg/mL (<300); Sodium 138 mmol/L (136-145); Total Protein 9.1 g/dL (6.4-8.2)
[2022-10-19 09:50] LABS: Troponin I 208 ng/L (<or=60)
--- NOTE | 2022-10-19 10:00 | NUR.NOTE ---
bgm 131
[2022-10-19] MEDS: Heparin in 0.45% NaCl 25,000 UNIT/250 ML BAG 10 UNIT IV (10:12)
--- NOTE | 2022-10-19 10:35 | NUR.NOTE ---
Nursing Note: BS 124 at 1037
[2022-10-19 10:41] VITALS: BP 111/44; PULSE 82; RESP 18; O2SAT 99
[2022-10-19 11:42] VITALS: BP 107/41; PULSE 74; RESP 18; O2SAT 99
--- NOTE | 2022-10-19 11:49 | NUR.NOTE ---
Nursing Note: Pt thoroughly updated with plan of care. Pt understands next steps. Pt has warm blankets and call light.
[2022-10-19 12:21] VITALS: BP 109/41; PULSE 78; RESP 18; O2SAT 99
--- NOTE | 2022-10-19 12:21 | NUR.NOTE ---
Nursing Note: BS 107. pt has sandwich and juice at bedside. Call light and blankets for comfort.
[2022-10-19 12:38] LABS: Troponin I 213 ng/L (<or=60)
[2022-10-19 13:35] VITALS: BP 100/48; PULSE 90; RESP 18; O2SAT 99
--- NOTE | 2022-10-19 13:40 | NUR.NOTE ---
Nursing Note: Pt updated with lab results and next steps of care. Pt thanked this nurse for care.
--- NOTE | 2022-10-19 14:47 | NUR.NOTE ---
Nursing note:Pt updated and report given to EMS transfer crew. Pt thanked this RN for care.
[2022-10-19 14:48] VITALS: BP 127/78; PULSE 70; RESP 18; TEMP 37; O2SAT 99
== END 2022-10-19 14:50 | disposition short-term general hospital (02) ==
PROVIDERS: Emergency Provider Student in an Organized Health Care Education/Training Program; PCP Internal Medicine
DX: I21.4 Non-ST elevation (NSTEMI) myocardial infarction (principal); R07.9 Chest pain, unspecified; E11.641 Type 2 diabetes mellitus with hypoglycemia with coma; Z95.5 Presence of coronary angioplasty implant and graft
CPT/HCPCS: 36415; 36416; 80053; 82962; 83690; 93005; 96361; 96365; 96366; 96375; 99291; 71045; 83735; 83880; 84484; 85025; 85610; 85730; 93010; J2405

== ENCOUNTER 2022-11-10 12:05 | Outpatient (REF) | payer MEDICARE, SELFPAY ==
[2022-11-10 22:13] LABS: Anion Gap 9.1 mmol/L (3-11); BUN 31 mg/dL (7-18); CO2 27.9 mmol/L (21.0-32.0); CREATININE 0.9 mg/dL (0.55-1.02); Calcium 9.4 mg/dL (8.5-10.1); Chloride 103 mmol/L (98-107); Estimated GFR 70.95 (mL/min/1.73m2); Glucose 137 mg/dL (74-106); Potassium 4.8 mmol/L (3.5-5.1); Sodium 140 mmol/L (136-145)
== END 2022-11-10 12:06 | disposition home or self-care (01) ==
LOC: NCHCN 12:05
PROVIDERS: PCP Internal Medicine; Visit Provider Internal Medicine
DX: I50.9 Heart failure, unspecified (principal); I25.2 Old myocardial infarction; I34.0 Nonrheumatic mitral (valve) insufficiency
CPT/HCPCS: 80048

== ENCOUNTER 2022-11-12 14:16 | Outpatient (RCR) | payer MEDICARE, SELFPAY | END 2022-11-13 23:59 | disposition home or self-care (01) | LOC: CR 14:16 | PROVIDERS: PCP Internal Medicine; Visit Provider Internal Medicine Cardiovascular Disease | DX: R69 Illness, unspecified (principal) ==

== ENCOUNTER 2022-12-11 10:31 | Outpatient (RCR) | payer MEDICARE, SELFPAY | END 2022-12-14 23:59 | disposition home or self-care (01) | LOC: CR 10:31 | PROVIDERS: PCP Internal Medicine; Visit Provider Internal Medicine Cardiovascular Disease | DX: I25.2 Old myocardial infarction (principal); Z51.89 Encounter for other specified aftercare | CPT/HCPCS: S9472 ==

== ENCOUNTER 2022-12-31 14:07 | Outpatient (REF) | payer MEDICARE, SELFPAY ==
[2022-12-31 14:10] LABS: Abs Immature Grans 0.04 10^3/uL (0.0-0.06); Absolute Basophil Count 0.04 10^3/uL (0.0-0.2); Absolute Eosinophil Count 0.19 10^3/uL (0.0-0.7); Absolute Lymphocyte Count 1.69 10^3/uL (1.2-3.4); Absolute Monocyte Count 1.21 10^3/uL (0.1-0.8); Absolute Neutrophil Count 6.75 10^3/uL (1.2-6.7); Basophils % 0.4; Eosinophils % 1.9; HGB 12.8 g/dL (11.2-15.7); Immature Grans % 0.4; MCH 30.8 pg (27.0-33.0); MCHC 32.8 % (32.0-36.0); MCV 94 fL (80-95); MPV 10.1 fL (8.0-11.0); Monocytes % 12.2; Neutrophils % 68.1; Platelet Count 290 10^3/uL (130-400); RBC 4.15 10^6/uL (3.93-5.22); RDW 14.5 % (11.7-14.6); RDW-SD 50.2 fL; WBC 9.92 10^3/uL (4.4-10.8)
[2022-12-31 14:53] LABS: ALT 19 U/L (14-59); AST 28 U/L (15-37); Albumin 3.4 g/dL (3.4-5.0); Alkaline Phosphatase 104 U/L (46-116); Anion Gap 10.8 mmol/L (3-11); BUN 23 mg/dL (7-18); Bilirubin, Total 0.4 mg/dL (0.2-1.0); CO2 25.2 mmol/L (21.0-32.0); CREATININE 0.9 mg/dL (0.55-1.02); Calcium 9.5 mg/dL (8.5-10.1); Chloride 106 mmol/L (98-107); Estimated GFR 70.95 (mL/min/1.73m2); Glucose 147 mg/dL (74-106); Magnesium 2.1 mg/dL (1.8-2.4); NT-proBNP 1076 pg/mL (<300); Potassium 5.1 mmol/L (3.5-5.1); Sodium 142 mmol/L (136-145)
== END 2022-12-31 14:08 | disposition home or self-care (01) ==
LOC: NCHCN 14:07
PROVIDERS: PCP Internal Medicine; Visit Provider Family Medicine
DX: I50.22 Chronic systolic (congestive) heart failure (principal); R10.9 Unspecified abdominal pain; I25.2 Old myocardial infarction; R42 Dizziness and giddiness
CPT/HCPCS: 80053; 83735; 83880; 85025

== ENCOUNTER 2023-01-06 09:00 | Outpatient (RCR) | payer MEDICARE, SELFPAY | END 2023-01-14 23:59 | disposition home or self-care (01) | LOC: CR 09:00 | PROVIDERS: PCP Internal Medicine; Visit Provider Internal Medicine Cardiovascular Disease | DX: I25.89 Other forms of chronic ischemic heart disease (principal); Z51.89 Encounter for other specified aftercare | CPT/HCPCS: S9472 ==

== ENCOUNTER → 2023-01-13 00:30 | Outpatient (CLI) | payer MEDICARE, SELFPAY ==
--- NOTE | 2023-01-13 | DI.US_ITS ---
Exam(s) US ABDOMEN EXAM: US ABDOMEN CLINICAL HISTORY: ACUTE ABD PAIN, R10.9, HX OF NSTEMI, I25.2, VERTIGO, R42, HYPOMAGNESEMIA TECHNIQUE: Ultrasound abdomen performed using standard protocol. COMPARISON: CT CT ABDOMEN PELVIS WO from 09/30/2022 FINDINGS: LIVER: Normal size. Mildly increased echogenicity consistent with mild hepatic steatosis. No focal liver lesions are seen. GALLBLADDER: No evidence of cholelithiasis. No evidence of wall thickening. No pericholecystic fluid identified. ABAD'S SIGN: Negative. BILIARY SYSTEM: No intrahepatic or extrahepatic biliary ductal dilation. KIDNEYS: Kidneys are symmetric in size. No evidence of renal calculi. No evidence of hydronephrosis. No renal mass or cyst identified. PANCREAS: Normal where visualized. SPLEEN: Not enlarged. ABDOMINAL AORTA AND IVC: Visualized portions normal caliber. ASCITES: None seen. IMPRESSION: Mild hepatic steatosis. Gallbladder normal. DATA REPOSITORY:
== END ==
PROVIDERS: PCP Internal Medicine; Visit Provider Family Medicine
DX: K76.0 Fatty (change of) liver, not elsewhere classified (principal); R10.0 Acute abdomen; R42 Dizziness and giddiness
CPT/HCPCS: 76700

== ENCOUNTER 2023-03-15 17:53 | Outpatient (REF) | payer MEDICARE, SELFPAY ==
[2023-03-15 16:19] LABS: Abs Immature Grans 0.06 10^3/uL (0.0-0.06); Absolute Basophil Count 0.06 10^3/uL (0.0-0.2); Absolute Eosinophil Count 0.16 10^3/uL (0.0-0.7); Absolute Lymphocyte Count 1.65 10^3/uL (1.2-3.4); Absolute Monocyte Count 0.98 10^3/uL (0.1-0.8); Absolute Neutrophil Count 6.32 10^3/uL (1.2-6.7); Basophils % 0.7; Eosinophils % 1.7; HCT 40.1 % (36.0-46.0); HGB 13.4 g/dL (11.2-15.7); Immature Grans % 0.7; Lymphocytes % 17.9; MCH 31.7 pg (27.0-33.0); MCHC 33.4 % (32.0-36.0); MCV 95 fL (80-95); MPV 10.2 fL (8.0-11.0); Monocytes % 10.6; Neutrophils % 68.4; Platelet Count 295 10^3/uL (130-400); RBC 4.23 10^6/uL (3.93-5.22); RDW 14.3 % (11.7-14.6); RDW-SD 49.6 fL; WBC 9.23 10^3/uL (4.4-10.8)
[2023-03-15 16:22] LABS: ESR 50 mm/hr (0-30)
[2023-03-15 16:56] LABS: ALT 26 U/L (14-59); AST 23 U/L (15-37); Albumin 3.9 g/dL (3.4-5.0); Alkaline Phosphatase 99 U/L (46-116); Anion Gap 9.5 mmol/L (3-11); BUN 30 mg/dL (7-18); Bilirubin, Total 0.4 mg/dL (0.2-1.0); CO2 26.5 mmol/L (21.0-32.0); CREATININE 1.2 mg/dL (0.55-1.02); Calcium 9.8 mg/dL (8.5-10.1); Chloride 100 mmol/L (98-107); Estimated GFR 49.92 (mL/min/1.73m2); Glucose 200 mg/dL (74-106); Potassium 5.1 mmol/L (3.5-5.1); Sodium 136 mmol/L (136-145); TSH (W/Ref FT4) 3.44 uIU/mL (0.36-3.74)
[2023-03-16 11:23] LABS: Lyme Ab w Rflx to Lyme Confirm Negative (Negative)
[2023-03-17 23:44] LABS: Anaplasma phagocytophilum Negative (Negative); B. miyamotoi PCR Negative (Negative); Babesia divergens/MO-1 Negative (Negative); Babesia duncani Negative (Negative); Babesia microti Negative (Negative); Ehrlichia chaffeensis Negative (Negative); Ehrlichia ewingii/canis Negative (Negative); Ehrlichia muris eauclairensis Negative (Negative)
== END 2023-03-15 17:54 | disposition home or self-care (01) ==
LOC: NCHCN 17:53
PROVIDERS: PCP Internal Medicine; Visit Provider Family Medicine
DX: R53.83 Other fatigue (principal); I27.22 Pulmonary hypertension due to left heart disease; W57.XXXA Bitten or stung by nonvenomous insect and other nonvenomous arthropods, initial encounter
CPT/HCPCS: 80053; 85652; 87798; 84443; 85025; 86618

== ENCOUNTER 2023-04-30 15:40 | Outpatient (REF) | payer MEDICARE, SELFPAY ==
[2023-04-30 14:39] LABS: Anion Gap 9.3 mmol/L (3-11); BUN 41 mg/dL (7-18); CO2 26.7 mmol/L (21.0-32.0); CREATININE 1.4 mg/dL (0.55-1.02); Calcium 9.8 mg/dL (8.5-10.1); Chloride 100 mmol/L (98-107); Estimated GFR 41.49 (mL/min/1.73m2); Glucose 107 mg/dL (74-106); Magnesium 2.3 mg/dL (1.8-2.4); Sodium 136 mmol/L (136-145)
[2023-04-30 19:42] LABS: NT-proBNP 1608 pg/mL (<300)
== END 2023-04-30 15:41 | disposition home or self-care (01) ==
LOC: NCHCN 15:40
PROVIDERS: PCP Internal Medicine; Visit Provider Family Medicine
DX: I10 Essential (primary) hypertension (principal)
CPT/HCPCS: 80048; 83735; 83880

== ENCOUNTER 2023-05-10 07:13 | Emergency (ER) | payer MEDICARE, SELFPAY ==
[2023-05-10] VITALS (20 sets, daily range): BP systolic 72–130; BP diastolic 16–72; PULSE 58–75; RESP 20; TEMP 36.4; O2SAT 97
--- NOTE | 2023-05-10 07:15 | RT.EKG_ITS ---
APPROVED REPORT Exam: Resting ECG Reason for Exam: SOB Patient Location: E HR:59 bpm ECG Measurements Heart Rate 59 AXIS MI 183 P 68 QRSd 104 QRS 46 QT 517 T 78 QTc 513 Conclusion Sinus bradycardia...rate< 60 Consider anteroseptal infarct...Q >30mS, dimin R, V1-V2 Nonspecific repol abnormality, diffuse leads...ST dep, T flat/neg, ant/lat/inf Prolonged QT interval...QTc >500mS Physician: T wave abnormality in V1-3, however this is unchanged from prior ekg on 10/19/22. No stemi
[2023-05-10] MEDS: Lidocaine 5% Patch 1 PATCH TP (07:40)
--- NOTE | 2023-05-10 07:43 | W.ED.GENAD ---
Discharge Plan Discharge Details Chief Complaint: Chest/Rib Primary Care Provider: Con Gardner ED Provider: Rah Walton Home Meds and New Rx's Prescriptions: No Action magnesium L-lactate 84 mg tablet extended release 84 mg PO DAILY pantoprazole 40 mg tablet,delayed release (DR/EC) 40 mg PO DAILY aspirin [Adult Low Dose Aspirin] 81 MG tablet,delayed release (DR/EC) 81 mg PO DAILY Qty: 30 tramadol 50 mg tablet 50 mg PO BID PRN Patient Comments: pt states no longer taking insulin degludec [Tresiba FlexTouch U-100] 100 unit/mL (3 mL) insulin pen 45 unit subcut DAILY acetaminophen-codeine 300-30 mg tablet 1 tab PO Q6H PRN insulin aspart U-100 [Novolog FlexPen U-100 Insulin] 100 unit/mL (3 mL) insulin pen 10 unit SUBCUT QAM cyclobenzaprine 10 mg tablet 10 mg PO HS PRN lisinopril [Prinivil] 10 mg tablet 10 mg PO BID Qty: 90 lamotrigine [Lamictal] 100 MG tablet 100 mg PO BID nitroglycerin [Nitrostat] 0.4 MG tablet, sublingual 0.4 mg Sublingual Q5 MIN PRN X3 PRN (Reason: Chest Pain) Qty: 15 0RF cholecalciferol (vitamin D3) 25 mcg (1,000 unit) Capsule 1,000 unit PO DAILY rosuvastatin [Crestor] 40 MG tablet 40 mg PO QPM multivitamin [Daily Multi-Vitamin] 1 EACH tablet 1 tab PO DAILY vitamin B complex [B-Complex] 1 EACH tablet 1 tab PO DAILY alprazolam 0.5 mg Tablet 0.5 mg PO PRN PRN Rx Instructions: 1-2 times per day prn for anxiety citalopram 20 mg Tablet 40 mg PO DAILY insulin glargine [Lantus U-100 Insulin] 100 unit/mL solution 48 unit subcut QAM Patient Comments: not taking naloxone [Narcan] 4 mg/actuation [place],Non-Aerosol 4 mg intranasal PRN PRN clopidogrel 75 mg tablet 75 mg PO DAILY metoprolol succinate 50 mg tablet extended release 24 hr 75 mg PO DAILY Patient Comments: TAKE 1 AND 1/2 TABLETS BY MOUTH DAILY isosorbide mononitrate 30 mg Tablet Extended Release 24 Hr 60 mg PO HS Qty: 60 0RF torsemide 20 mg tablet 20 mg PO BID Patient Comments: TAKE 1 TABLET BY MOUTH TWICE DAILY IN THE MORNING AND EARLY AFTERNOON Medical Decision Making This is a 68-year-old female history of CAD status post CABG, CHF, bipolar 1, type 2 diabetes on insulin, who presents for chest pain. Patient states that over the last 6 weeks she has had a few falls. Unfortunately each time she fall she usually hits her right chest. She blames this on her chronic poor vision. She did just have a cataract removal recently which has helped improve the falls. Unfortunately the pain in her right chest has persisted, last fall was around 4 weeks ago which continued to exacerbate the right-sided chest pain. However about 2 to 3 weeks ago the pain got worse on its own without additional falls. Now it is notably sensitive to breathing and palpation of the right chest. She denies any cough or hemoptysis. She does admit to feeling notably winded with activity and exertion. She states that this feels different than her previous heart attack. She denies any pain anywhere else. She has been taking her medications as directed. She has tried using NSAIDs at home with no significant improvement of her pain. No other complaints at this time. No other modifying factors. Exam demonstrates well-appearing female, vital signs stable. Patient does have notable right-sided chest wall tenderness, in the infra axillary area, as well as the breast tissue. No bruising. Differential is highest for rib fracture and contusion, however with the longevity of the symptoms and the slightly atypical history other etiologies also considered. Bedside ultrasound was performed and she demonstrates good lung sliding. Trace pneumothorax, pleural effusion or PE is of concern. Cardiac etiology is less likely but of concern. EKG demonstrates no STEMI. Will get a CT scan of the chest, give Lidoderm patch and Tylenol, evaluate for cardiac etiology monitor closely and reassess. Patient will be signed out to my colleague Dr. Carvalho for follow-up on labs and imaging. HPI General Date/Time Provider Initiated Documentation: 05/10/23 07:14. HPI Narrative: This is a 68-year-old female history of CAD status post CABG, CHF, bipolar 1, type 2 diabetes on insulin, who presents for chest pain. Patient states that over the last 6 weeks she has had a few falls. Unfortunately each time she fall she usually hits her right chest. She blames this on her chronic poor vision. She did just have a cataract removal recently which has helped improve the falls. Unfortunately the pain in her right chest has persisted, last fall was around 4 weeks ago which continued to exacerbate the right-sided chest pain. However about 2 to 3 weeks ago the pain got worse on its own without additional falls. Now it is notably sensitive to breathing and palpation of the right chest. She denies any cough or hemoptysis. She does admit to feeling notably winded with activity and exertion. She states that this feels different than her previous heart attack. She denies any pain anywhere else. She has been taking her medications as directed. She has tried using NSAIDs at home with no significant improvement of her pain. No other complaints at this time. No other modifying factors. Related Data Home Medications Medication Instructions Recorded Confirmed lamotrigine 100 mg tablet 100 mg PO BID 04/08/14 05/10/23 (Lamictal) nitroglycerin 0.4 mg sublingual 0.4 mg sublingual Q5 MIN PRN X3 07/01/15 05/10/23 tablet (Nitrostat) PRN Chest Pain #15 tabs aspirin 81 mg tablet,delayed 81 mg PO DAILY #30 tab-caps 05/29/16 05/10/23 release (Adult Low Dose Aspirin) rosuvastatin 40 mg tablet (Crestor) 40 mg PO QPM 01/03/18 05/10/23 multivitamin (Daily Multi-Vitamin 1 tab PO DAILY 01/04/18 05/10/23 tablet) vitamin B complex (B-Complex 1 tab PO DAILY 01/04/18 05/10/23 tablet) alprazolam 0.5 mg tablet 0.5 mg PO PRN PRN 11/05/18 05/10/23 citalopram 20 mg tablet 40 mg PO DAILY 11/05/18 05/10/23 naloxone 4 mg/actuation nasal 4 mg intranasal PRN PRN 11/21/18 05/10/23 spray (Narcan) magnesium L-lactate 84 mg 84 mg PO DAILY 12/23/18 05/10/23 tablet,extended release pantoprazole 40 mg tablet,delayed 40 mg PO DAILY 04/07/19 05/10/23 release insulin glargine 100 unit/mL 48 unit subcut QAM 10/06/19 05/10/23 subcutaneous solution (Lantus U-100 Insulin) cholecalciferol (vitamin D3) 25 1,000 unit PO DAILY 09/23/20 05/10/23 mcg (1,000 unit) capsule clopidogrel 75 mg tablet 75 mg PO DAILY 12/27/20 05/10/23 isosorbide mononitrate 30 mg 60 mg (2 x 30 mg) PO HS #60 tabs 12/27/20 05/10/23 tablet,extended release 24 hr metoprolol succinate 50 mg 75 mg PO DAILY 12/27/20 05/10/23 tablet,extended release 24 hr torsemide 20 mg tablet 20 mg PO BID 08/23/22 05/10/23 acetaminophen 300 mg-codeine 30 mg 1 tab PO Q6H PRN 08/25/22 05/10/23 tablet cyclobenzaprine 10 mg tablet 10 mg PO HS PRN 08/25/22 05/10/23 insulin aspart U-100 100 unit/mL 10 unit subcut QAM 08/25/22 05/10/23 (3 mL) subcutaneous pen (Novolog FlexPen U-100 Insulin aspart) insulin degludec 100 unit/mL (3 45 unit subcut DAILY 08/25/22 05/10/23 mL) subcutaneous pen (Tresiba FlexTouch U-100 insulin) lisinopril 10 mg tablet (Prinivil) 10 mg PO BID #90 tab-caps 08/25/22 05/10/23 tramadol 50 mg tablet 50 mg PO BID PRN 08/25/22 05/10/23 Previous Rx's Medication Instructions Recorded nitroglycerin 0.4 mg sublingual 0.4 mg sublingual Q5 MIN PRN X3 07/01/15 tablet (Nitrostat) PRN Chest Pain #15 tabs isosorbide mononitrate 30 mg 60 mg (2 x 30 mg) PO HS #60 tabs 12/27/20 tablet,extended release 24 hr Allergies Allergy/AdvReac Type Severity Reaction Status Date / Time ezetimibe [From Vytorin] Allergy Unknown Verified 05/10/23 07:21 hydrocodone Allergy Unknown Verified 05/10/23 07:21 pravastatin Allergy Unknown Verified 05/10/23 07:21 simvastatin [From Vytorin] Allergy Unknown Verified 05/10/23 07:21 ibuprofen AdvReac Severe severe Verified 05/10/23 07:21 vomiting General Stated Complaint: Chest/Rib CHRIS: 3 Review of Systems All systems reviewed & are unremarkable except as noted in HPI and below PFSH All Active Problems Injury of left little finger (Acute 07/13/22) Fracture of third metatarsal bone of left foot (Acute 07/13/22) Tobacco abuse (Acute) Bipolar 1 disorder (Acute) Chest pain, rule out acute myocardial infarction (Acute) Hx of CABG (Chronic) Discharge planning issues (Acute) DVT prophylaxis (Acute) Ischemic cardiomyopathy (Chronic) CHF (congestive heart failure) (Chronic) Diabetes mellitus type 2, controlled (Acute) Coronary atherosclerosis (Acute) Accelerating angina (Acute) Hyperlipidemia (Acute) Sinusitis (Acute) Fatigue (Acute) Mitral insufficiency (Acute) Medical History Hypertension GERD (gastroesophageal reflux disease) Fibromyalgia Diabetes Sleep apnea Surgical History Status post carpal tunnel release of both wrists S/P mitral valve clip implantation Hx of CABG 2016 Social History Smoking/Tobacco Use Status: Current every day Tobacco Type: cigarettes Quit status: considering quitting Smoking risk assessment performed?: Yes Alcohol Intake: current Alcohol Intake frequency: a few times a week Alcohol type: wine Drug use: Never Substance use type: does not use Housing: house What type of physical activity do you participate in: other Details: cardiac rehab Do you feel safe at home: Yes Do you feel safe in your relationship?: Yes History History Para 4 Hx # Term Pregnancies Multiple births Hx # Pregnancies Ectopic pregnancies AB induced Hx Number of Living Children AB spontaneous Exam Narrative Exam Narrative: 1.Const: Well-nourished, Well-developed, appearing stated age 2.Eyes: PERRL, no conjunctival injection, and symmetrical lids. 3.ENT: Atraumatic external nose and ears. Moist MM. Neck: Symmetric, trachea midline, No thyromegaly. 4.CVS: +S1/S2, No murmurs or gallops. Peripheral pulses 2+ and equal in all extremities. Brisk capillary refill in all extremities. 5.RESP: Unlabored respiratory effort. Clear to auscultation bilaterally. No wheezes rales or rhonchi 6.GI: Soft, Nontender/Nondistended, No hepatosplenomegaly. No guarding or rebound. 7.MSK: Notable tenderness on palpation of the right chest wall, the infra axillary area, at the right breast. No bruising. No subcutaneous crepitus. 8.Skin: Warm, Dry. No rashes or lesions. 9.Neuro: sliding joint maker II-XII grossly intact. Sensation grossly intact, no focal neurologic deficits. 10.Psych: (AAO) x3. Appropriate mood and affect Course Vital Signs Vital signs: Vital Signs Temperature 36.4 C L 05/10/23 07:15 Pulse 75 05/10/23 07:15 Respiratory Rate 20 05/10/23 07:15 Blood Pressure 112/72 05/10/23 07:15 Pulse Oximetry 97 05/10/23 07:15 Temperature 36.4 C L 05/10/23 07:15 Temperature Source Skin 05/10/23 07:15 Pulse 75 05/10/23 07:15 Respiratory Rate 20 05/10/23 07:15 Respiratory Effort Short of Breath 05/10/23 07:26 Blood Pressure 112/72 05/10/23 07:15 Blood Pressure Position Supine 05/10/23 07:15 Pulse Oximetry 97 05/10/23 07:15 Oxygen Delivery Method Room Air 05/10/23 07:15 Oxygen Flow Rate 0 05/10/23 07:15 Pain Level 10 05/10/23 07:15 PAWSS Have you Been Recently Intoxicated or Drunk Within the Last 30 days?: No Have you Ever Experienced Previous Episodes of Alcohol Withdrawal?: No Have you ever Experienced Withdrawal Seizures?: No Have you ever Experienced Delirium Tremens(DT)s?: No Have you ever undergone Alcohol Rehabilitation Treatment (i.e, inpt ot outpatient treatment programs)?: No Have you ever Experienced Blackouts?: No Have you ever Combined Alcohol with other Downers within the last 90 days?: No Have you ever Combined Alcohol with any other Substance of Abuse during the last 90 days?: No Positive Blood Alcohol level on Presentation? [PCS.BAL]: No Evidence of Increased Autonomic Activity (i.e. HR>120, tremor, sweating, agitation, nausea)?: No Result: 0
[2023-05-10 08:03] LABS: Abs Immature Grans 0.06 10^3/uL (0.0-0.06); Absolute Basophil Count 0.05 10^3/uL (0.0-0.2); Absolute Eosinophil Count 0.25 10^3/uL (0.0-0.7); Absolute Lymphocyte Count 2.09 10^3/uL (1.2-3.4); Absolute Monocyte Count 1.13 10^3/uL (0.1-0.8); Absolute Neutrophil Count 5.29 10^3/uL (1.2-6.7); Basophils % 0.6; Eosinophils % 2.8; HCT 32.9 % (36.0-46.0); HGB 10.6 g/dL (11.2-15.7); Immature Grans % 0.7; Lymphocytes % 23.6; MCH 31.5 pg (27.0-33.0); MCHC 32.2 % (32.0-36.0); MCV 98 fL (80-95); MPV 9.8 fL (8.0-11.0); Monocytes % 12.7; Neutrophils % 59.6; Platelet Count 235 10^3/uL (130-400); RBC 3.37 10^6/uL (3.93-5.22); RDW 14.1 % (11.7-14.6); WBC 8.87 10^3/uL (4.4-10.8)
[2023-05-10 08:14] LABS: ALT 22 U/L (14-59); AST 18 U/L (15-37); Albumin 3.2 g/dL (3.4-5.0); Alkaline Phosphatase 133 U/L (46-116); Anion Gap 7.5 mmol/L (3-11); BUN 18 mg/dL (7-18); Bilirubin, Total 0.7 mg/dL (0.2-1.0); CO2 29.5 mmol/L (21.0-32.0); CREATININE 1.1 mg/dL (0.55-1.02); Calcium 9.4 mg/dL (8.5-10.1); Chloride 101 mmol/L (98-107); Estimated GFR 55.42 (mL/min/1.73m2); Glucose 128 mg/dL (74-106); Potassium 4.2 mmol/L (3.5-5.1); Sodium 138 mmol/L (136-145); Total Protein 7.8 g/dL (6.4-8.2); Troponin I < 50 ng/L (<or=60)
--- NOTE | 2023-05-10 08:21 | W.EDPROG ---
Date of service: 05/10/23 Time of Service: 08:21 Medical Decision Making I have received signout. I have seen and examined the patient. She is a 68-year-old female with severe coronary artery disease who has had bypass grafting and 2016 and multiple stent placement since then the last being 3 years ago. Her symptoms prior to her interventions were chest pressure though she tells me she has had a lot of silent MIs. She is complaining of right-sided chest pain after multiple falls although the pain has increased spontaneously. Dr. Walton did a ultrasound earlier which showed good lung sliding. She has had acetaminophen and a lidocaine patch. She attributes her falls to a combination of poor eyesight and chronic intermittent vertigo. She recently had cataract surgery. She tells me she is allergic to ibuprofen which tears up her stomach. She has had Dilaudid in the past after her bypass grafting. She tells me she does not have a history of congestive heart failure though it is listed in her problem list. She tells me she was recently changed from furosemide to torsemide. On exam she does not appear in acute distress. She is lying on her left side. There is a Lidoderm patch over the right ribs which are slightly tender. I cannot appreciate any subcutaneous emphysema or bony crepitus. I have written for IV fluids and 0.5 mg of Dilaudid since she is still having pain. We are awaiting her blood work prior to her CTA. I have added CT of the abdomen to rule out hepatic injury. 10:52am the patient's labs and CT are resulted, I will discharge the patient with out patient follow up Imaging Data Radiologic Study: Imaging: CT Scan (CTA chest) Radiologist's impression: [facility]Rad impression: No detectable PE no obvious acute pulmonary abnormality. Radiologic Study #2: Imaging: CT Scan (CT abdomen and pelvis with IV contrast. ) Radiologist's impression: [facility] impression: No convincing evidence of acute abnormality within the abdomen or pelvis. Various incidental and/or nonacute findings as reported above. Lab Data Lab results reviewed: Yes I reviewed the patient's lab results. Lab results narrative: Mild anemia, not on acute. Narrative I have updated the patient on the CT findings and lab work. I have advised her to follow-up with her primary care provider. I have advised her to call tomorrow to arrange an appointment for recheck. The patient usually takes tramadol and/or Tylenol with codeine for pain she has run out. We will give her stool hydrocodone/acetaminophen to take for severe pain. I have advised her to alternate acetaminophen every 3 hours with ibuprofen as needed for mild to moderate pain I will also write a prescription for the lidocaine patch. The patient was advised not to drink alcohol drive operate heavy machinery or make important decisions while on the narcotic. She is aware it causes drowsiness and constipation. I have advised the patient return here for any new or worrisome symptoms. The patient voiced understanding agree with the discharge plan. All her questions and concerns were addressed prior to discharge Sign Out Sign Out Data: Sign Out Comment: Chest pain, history of cardiac disease, pain appears to be musculoskeletal after falls. Follow-up on labs and imaging. Last updated by Rah Walton DO at 05/10/23 07:49 Discharge Plan Disposition Patient Disposition: Home Condition: Good Discharge Details Clinical Impression: Chest wall contusion, Fall Primary Care Provider: Con Gardner ED Provider: Belen Carvalho Home Meds and New Rx's Prescriptions: New lidocaine [Lidocan II] 5 % adhesive patch,medicated 1 patch topical DAILY Qty: 15 0RF Rx Instructions: leave on most painful area for up to 12 hrs No Action magnesium L-lactate 84 mg tablet extended release 84 mg PO DAILY pantoprazole 40 mg tablet,delayed release (DR/EC) 40 mg PO DAILY aspirin [Adult Low Dose Aspirin] 81 MG tablet,delayed release (DR/EC) 81 mg PO DAILY Qty: 30 tramadol 50 mg tablet 50 mg PO BID PRN Patient Comments: pt states no longer taking insulin degludec [Tresiba FlexTouch U-100] 100 unit/mL (3 mL) insulin pen 45 unit subcut DAILY acetaminophen-codeine 300-30 mg tablet 1 tab PO Q6H PRN insulin aspart U-100 [Novolog FlexPen U-100 Insulin] 100 unit/mL (3 mL) insulin pen 10 unit SUBCUT QAM cyclobenzaprine 10 mg tablet 10 mg PO HS PRN lisinopril [Prinivil] 10 mg tablet 10 mg PO BID Qty: 90 lamotrigine [Lamictal] 100 MG tablet 100 mg PO BID nitroglycerin [Nitrostat] 0.4 MG tablet, sublingual 0.4 mg Sublingual Q5 MIN PRN X3 PRN (Reason: Chest Pain) Qty: 15 0RF cholecalciferol (vitamin D3) 25 mcg (1,000 unit) Capsule 1,000 unit PO DAILY rosuvastatin [Crestor] 40 MG tablet 40 mg PO QPM multivitamin [Daily Multi-Vitamin] 1 EACH tablet 1 tab PO DAILY vitamin B complex [B-Complex] 1 EACH tablet 1 tab PO DAILY alprazolam 0.5 mg Tablet 0.5 mg PO PRN PRN Rx Instructions: 1-2 times per day prn for anxiety citalopram 20 mg Tablet 40 mg PO DAILY insulin glargine [Lantus U-100 Insulin] 100 unit/mL solution 48 unit subcut QAM Patient Comments: not taking naloxone [Narcan] 4 mg/actuation [place],Non-Aerosol 4 mg intranasal PRN PRN clopidogrel 75 mg tablet 75 mg PO DAILY metoprolol succinate 50 mg tablet extended release 24 hr 75 mg PO DAILY Patient Comments: TAKE 1 AND 1/2 TABLETS BY MOUTH DAILY isosorbide mononitrate 30 mg Tablet Extended Release 24 Hr 60 mg PO HS Qty: 60 0RF torsemide 20 mg tablet 20 mg PO BID Patient Comments: TAKE 1 TABLET BY MOUTH TWICE DAILY IN THE MORNING AND EARLY AFTERNOON Discharge Instructions Instructions: Fall Prevention for Older Adults (ED), Contusion in Adults (ED) Additional Instructions: 1. Alternate 400 to 600 mg of ibuprofen every 3 hours with 1000 mg of acetaminophen as needed for pain. Use the lidocaine patches as directed. Asked the pharmacist if you need to wait 12 hours between reapplication. Take hydrocodone/acetaminophen for severe pain. You cannot drink alcohol, drive, operate heavy machinery or make important decisions while taking this medication it can also cause drowsiness and constipation. 2. Call your primary care provider tomorrow for follow-up appointment and recheck and return to the emergency department for any new or worrisome symptoms. Discharge Data Discharge Physician: Belen Carvalho
[2023-05-10] MEDS: Normal Saline 1,000 ML 150 ML IV (08:34)
[2023-05-10] MEDS: HYDROmorphone 2 MG/ML SYR 0.5 MG IVP (08:34)
[2023-05-10] MEDS: Normal Saline - Diluent 50 ML VIAL IJ (08:47)
[2023-05-10] MEDS: Omnipaque 350 MG/ML 100 ML BTL IJ (08:49)
[2023-05-10] MEDS: Normal Saline Flush 10 ML SYR IVP (08:50)
--- NOTE | 2023-05-10 08:55 | DI.CT_ITS ---
Exam(s) CT CHEST PE ABD PELVIS W EXAM: CT CHEST PE ABD PELVIS W CLINICAL HISTORY: right chest pain, r/o FX vs PE. TECHNIQUE: Imaging Protocol: Axial CT angiography was performed with multi-slice acquisition and m ulti-planar and/or 3D reconstructions. CONTRAST MATERIAL: Intravenous: Omnipaque 350 Contrast volume:100 ml Oral: None COMPARISON: CT CT ABDOMEN PELVIS WO from 09/30/2022 FINDINGS: CHEST: PULMONARY ARTERIES: There are no intra-arterial filling defects to suggest the presence of acute pulm onary emboli. LUNGS: There is no evidence of pulmonary infarction.No infiltrates nor ominous pulmonary lesions. Th ere are no pleural effusions. MEDIASTINUM: There is no hilar nor mediastinal adenopathy. Visualized thyroid unremarkable. CARDIAC: There is sternotomy wires. Heart size upper normal. No pericardial effusion. Caliber of t horacic aorta is within normal limits. OSSEOUS: No significant osseous lesions.. ABDOMEN: There is no ascites. LIVER: Hepatomegaly and somewhat cirrhotic appearing liver. No discrete focal hepatic lesions. No d ilated intrahepatic ducts. GALLBLADDER/BILIARY: No obvious gallbladder pathology. CBD is not dilated. PANCREAS: No evidence of pancreatic mass nor dilatation of the pancreatic duct. SPLEEN: Spleen is not enlarged. There are no intrasplenic lesions. Splenic and portal veins are dillard nt. ADRENALS: There are no significant adrenal masses. KIDNEYS:No cysts evident. No calculi nor hydronephrosis. No solid renal masses. ABDOMINAL AORTA: Abdominal aorta is calcified but not enlarged. Common iliac arteries are also calci fied but not enlarged. LYMPH NODES: There is no retroperitoneal or para-aortic adenopathy. ABDOMINAL WALL/GI: No evidence of significant anterior abdominal wall hernia. No bowel obstruction. PELVIS: LYMPH NODES: There is no intrapelvic nor inguinal adenopathy. GI: No evidence of appendicitis.No evidence of sigmoid diverticulitis. URINARY BLADDER: No calculi nor masses evident REPRODUCTIVE: Uterus is surgically absent. No abnormal adnexal masses. No free fluid in the pelvis. OSSEOUS: No significant osseous lesions. Unilateral left-sided pars defect at L5 level noted. There is no listhesis. Chronic disc space narrowing L4-5 and L5-S1 levels. IMPRESSION: 1. No evidence of acute pulmonary emboli nor pulmonary infarction. No pleural effusions. Sternotomy wires noted. 2. Hepatomegaly and somewhat cirrhotic appearing liver. No liver lesion identified. Spleen size nor mal. There is no ascites.No acute findings in the abdomen and pelvis. 3. Prior hysterectomy. No abnormal adnexal masses nor free fluid. 4. Unilateral pars defect on the left side of L5. No listhesis. First read by [facility]. RADIATION DOSE DELIVERED: Total DLP DATA REPOSITORY: All CT scans at this facility are submitted to the National Radiology Data Registry (NRDR) Dose Index Registry (DIR) with the [employer] (A[employer]). RADIATION OPTIMIZATION: All CT scans at this facility use at least one of these dose optimization te chniques: automated exposure control; mA and/or kV adjustment per patient size (includes targeted exa ms where dose is matched to clinical indication); or iterative reconstruction.
--- NOTE | 2023-05-10 10:03 | NUR.NOTE ---
Nursing Note: pt sugar was 69 on FS, given PB and crackers with OJ.
--- NOTE | 2023-05-10 10:37 | DI.VRAD_ITS ---
PROCEDURE INFORMATION: Exam: CTA Chest With Contrast Exam date and time: 05/10/2023 8:45 AM Age: 68 years old Clinical indication: Other: RT chest pain; Right-sided TECHNIQUE: Imaging protocol: Computed tomographic angiography of the chest with contrast. Exam focused on the pulmonary arteries. 3D rendering (Not supervised by radiologist): MIP and/or 3D reconstructed images were created by the technologist. Radiation optimization: All CT scans at this facility use at least one of these dose optimization techniques: automated exposure control; mA and/or kV adjustment per patient size (includes targeted exams where dose is matched to clinical indication); or iterative reconstruction. Contrast material: OMNI 350; Contrast volume: 100 ml; Contrast route: INTRAVENOUS (IV); COMPARISON: CT THORAX CTA 12/26/2020 2:49 PM FINDINGS: Pulmonary arteries: No pulmonary emboli detected. Aorta: Thoracic aorta is normal caliber and demonstrates mild atherosclerotic calcification. Lungs: Minimal chronic scarring in the lingula. No obvious acute infiltrates. Minimal chronic scarring in the lingula. Nonspecific mild prominence of a right infrahilar lymph node without significant change compared to 12/26/2020. Tiny subpleural nodule left apex posteriorly is unchanged since 2020. Pleural spaces: No pneumothorax. No pleural effusion. Heart: No pericardial effusion. Chronic cardiomegaly. There is a metallic density in the region of the left mitral valve, unchanged from multiple prior exams Lymph nodes: No mediastinal adenopathy identified.. Bones/joints: Prior median sternotomy, presumably for CABG. Multivessel atherosclerotic coronary artery calcifications are present. Soft tissues: Other than stated elsewhere, no acute abnormality. IMPRESSION: No detectable pulmonary embolus. No obvious acute pulmonary abnormality. PROCEDURE INFORMATION: Exam: CT Abdomen And Pelvis With Contrast Exam date and time: 05/10/2023 8:45 AM Age: 68 years old Clinical indication: Other: RT chest pain; Right-sided abdominal pain TECHNIQUE: Imaging protocol: Computed tomography of the abdomen and pelvis with contrast. Radiation optimization: All CT scans at this facility use at least one of these dose optimization techniques: automated exposure control; mA and/or kV adjustment per patient size (includes targeted exams where dose is matched to clinical indication); or iterative reconstruction. Contrast material: OMNI 350; Contrast volume: 100 ml; Contrast route: INTRAVENOUS (IV); COMPARISON: CT CHEST PE ABD PELVIS W 11/21/2018 11:07 AM FINDINGS: Liver: No obvious acute abnormality of the liver. Gallbladder and bile ducts: No gallbladder wall thickening, radiodense stones, or significant biliary duct dilation. Pancreas: No acute abnormality or obvious pancreatic duct dilation. Spleen: Normal size; no suspicious masses. Adrenal glands: No suspicious adrenal masses. Kidneys and ureters: Symmetric renal cortical enhancement without hydronephrosis. Stomach and bowel: No evidence of gastric outlet obstruction or bowel obstruction. Appendix: Presumed appendectomy; appendix not identified. Intraperitoneal space: No free intraperitoneal air, significant ascites, or localized fluid collections. Vasculature: Diffuse aortoiliac atherosclerotic calcifications without aneurysmal dilation. No evidence of high-grade stenosis involving proximal celiac artery or SMA. A replaced hepatic artery arises from the SMA. Lymph nodes: No enlarged lymph nodes. Urinary bladder: No significant bladder wall thickening. Reproductive: Visualized portions show no obvious acute abnormality. Bones/joints: Chronic multilevel lumbar degenerative disc disease and facet arthropathy, most pronounced at L4-L5. Soft tissues: Unremarkable. IMPRESSION: No convincing evidence of acute abnormality within the abdomen or pelvis. Various incidental and/or nonacute findings as reported above. Dictated and Authenticated by: Jean Claude Davenport MD. Ordering:ЕЛЕНА Monreal MD
[2023-05-10 10:42] LABS: Troponin I < 50 ng/L (<or=60)
== END 2023-05-10 11:22 | disposition home or self-care (01) ==
PROVIDERS: Student in an Organized Health Care Education/Training Program; Emergency Provider Emergency Medicine Emergency Medical Services; PCP Internal Medicine
DX: S20.211A Contusion of right front wall of thorax, initial encounter (principal); I11.0 Hypertensive heart disease with heart failure; I50.32 Chronic diastolic (congestive) heart failure; E11.9 Type 2 diabetes mellitus without complications; I25.10 Atherosclerotic heart disease of native coronary artery without angina pectoris; F17.210 Nicotine dependence, cigarettes, uncomplicated; Z95.1 Presence of aortocoronary bypass graft; Z95.5 Presence of coronary angioplasty implant and graft; Z79.4 Long term (current) use of insulin; Z79.02 Long term (current) use of antithrombotics/antiplatelets; Z79.82 Long term (current) use of aspirin; W18.39XA Other fall on same level, initial encounter; Z91.81 History of falling; Y93.89 Activity, other specified; Y92.018 Other place in single-family (private) house as the place of occurrence of the external cause
CPT/HCPCS: 00123; 36415; 71275; 74177; 80053; 82962; 93005; 99285; 84484; 85025; 93010; 99284; J1170; J3490

== ENCOUNTER 2023-05-19 16:04 | Outpatient (REF) | payer MEDICARE, SELFPAY ==
[2023-05-19 21:13] LABS: BUN 22 mg/dL (7-18); Calcium 9.4 mg/dL (8.5-10.1); Chloride 103 mmol/L (98-107); Estimated GFR 62.13 (mL/min/1.73m2); Glucose 125 mg/dL (74-106); NT-proBNP 3266 pg/mL (<300); Potassium 4.8 mmol/L (3.5-5.1); Sodium 138 mmol/L (136-145)
== END 2023-05-19 16:05 | disposition home or self-care (01) ==
LOC: NCHCN 16:04
PROVIDERS: PCP Internal Medicine; Visit Provider Family Medicine
DX: I50.22 Chronic systolic (congestive) heart failure (principal)
CPT/HCPCS: 80048; 83880

== ENCOUNTER → 2023-05-20 12:46 | Outpatient (CLI) | payer MEDICARE, SELFPAY ==
--- NOTE | 2023-05-20 14:59 | DI.RAD_ITS ---
Exam(s) XR KNEE RT 3V AP,LAT,MONICA EXAM: XR KNEE RT 3V AP,LAT,MONICA CLINICAL HISTORY: M25.561 Pain in right knee. TECHNIQUE: 2D digital imaging was performed of the right knee. Three views obtained. AP, lateral an d PA tunnel views were obtained. COMPARISON: No priors for comparison. FINDINGS: BONES: No acute fracture is present. No bony destructive lesion is seen. There is an enthesophyte at the superior patella. JOINTS: The knee is normally aligned. There is a small joint effusion. SOFT TISSUE: Vascular calcifications are present. Surgical clip is seen in the medial soft tissues. IMPRESSION: No evidence of an acute or healing fracture or dislocation. DATA REPOSITORY: RADIATION DOSE DELIVERED:
== END ==
PROVIDERS: PCP Internal Medicine; Visit Provider Family Medicine
DX: M25.561 Pain in right knee (principal)
CPT/HCPCS: 73562

== ENCOUNTER 2023-06-14 15:36 | Outpatient (REF) | payer MEDICARE, SELFPAY ==
[2023-06-14 14:48] LABS: HCT 38.5 % (36.0-46.0); HGB 12.5 g/dL (11.2-15.7)
== END 2023-06-14 15:37 | disposition home or self-care (01) ==
LOC: NCHCN 15:36
PROVIDERS: PCP Internal Medicine; Visit Provider Internal Medicine
DX: D64.9 Anemia, unspecified (principal)
CPT/HCPCS: 85014; 85018

== ENCOUNTER 2023-06-28 21:32 | Outpatient (REF) | payer MEDICARE, SELFPAY | END 2023-06-28 21:33 | disposition home or self-care (01) | LOC: NCHCN 21:32 | PROVIDERS: PCP Internal Medicine; Visit Provider Family Medicine | DX: E11.9 Type 2 diabetes mellitus without complications (principal) | CPT/HCPCS: 83036 ==

== ENCOUNTER → 2023-08-26 03:34 | Outpatient (CLI) | payer MEDICARE, SELFPAY ==
--- NOTE | 2023-08-26 08:30 | DI.US_ITS ---
APPROVED REPORT EXAM: Comprehensive 2D, Doppler, and color-flow Echocardiogram Patient Location: Out-Patient [facility] [employer] Operator: Nasrin Escamilla RDCS (AE) Indications: Non rheumatic tricuspid insufficiency Other Information Study Quality: Adequate. Technically limited study due to body habitus. Conclusion Normal left ventricular chamber size and wall thickness. EF is 40 to 45%. Diastolic septal flatteni ng suggest right ventricular pressure overload Right ventricle is mildly enlarged Both atria are mildly dilated Mildly sclerotic trileaflet aortic valve with mild regurgitation Patient is status post MitraClip. There is severe mitral regurgitation. Mitral valve mean gradient is 11 mmHg consistent with mitral stenosis Normal tricuspid valve with moderate to severe tricuspid regurgitation. Estimated right pressure is 62 mmHg Compared to a transesophageal echocardiogram from October 2022, LV function appears similar Mitral valve findings appear similar Wall motion Left Ventricle Left ventricle is mildly dilated. Left ventricular systolic function is moderately decreased. There i s normal left ventricular wall thickness. There is global hypokinesis of the left ventricle. There is no ventricular septal defect visualized. LVEF is 43%. Right Ventricle Right ventricle is mildly enlarged. Right ventricular systolic function is grossly normal. Atria Left atrium is mildly dilated. Right atrium is mildly dilated. The interatrial septum is intact with no evidence for an atrial septal defect. Aortic Valve The aortic valve is mildly sclerotic Aortic valve is trileaflet. There is no aortic valvular stenosis . Mild aortic regurgitation Mitral Valve MitraClip is present. Mitral valve leaflets are thickened. Moderate to severe mitral stenosis. Severe mitral regurgitation Tricuspid Valve The tricuspid valve is normal in structure. There is no tricuspid valve stenosis. Moderate to severe tricuspid regurgitation. The RVSP is 61.9 mmHg. Pulmonic Valve The pulmonary valve is normal in structure. There is no pulmonic valvular stenosis. Moderate pulmonic regurgitation. Great Vessels The aortic root is normal in size. The ascending aorta is mildly dilated. Aortic arch is not well vis ualized. The IVC collapses <50% with inspiration. Pericardium There is no pericardial effusion. 2D Dimensions IVSD d PLAX 0.78 cm F: 0.6-1.0 Ao Root d 2.74 cm F: 2.7 - 3.3 LVPW d PLAX 0.78 cm F: 0.6 - 1.0 Ao Asc Diam d 3.39 cm F: 2.3 - 3.1 LVID d PLAX 5.45 cm F: 3.8 - 5.2 LVDs 4.52 cm F: 2.2 - 3.5 LV EF Teichholz 35.0 % FS 17.00 % LV EDV (Teich) 144.3 mL LV ESV (Teich) 93.6 mL M-Mode TAPSE 1.11 cm (M/F) >1.7 Auto EF LV EDV A4C 139.5 mL LV EDV A2C 164.7 mL LV EDV BP 151.5 mL LV ESV A4C 79.5 mL LV ESV A2C 95.2 mL LV ESV BP 86.3 mL LVEF(%) A4C 43.0 % LVEF(%) A2C 42.2 % LVEF(%) BP 43.0 % LV SV A4C 60.0 ml LV SV A2C 69.5 ml LV SV BP 65.2 ml LV CO A4C 3.6 L/min LV CO A2C 4.1 L/min LV CO BP 3.8 L/min HR A4C 59.71 BPM HR A2C 59.21 BPM LV EDV Index (BP) LA Volume LA Length A4C 5.9 cm LA Length A2C 5.8 cm LA Area A4C s 19.84 cm2 LA Area A2C s 18.21 cm2 LA Vol A4C A-L 57.07 mL LA Vol A2C A-L 48.66 mL LA Vol Biplane A-L 53.0 mL LA Vol/BSA A4C A-L LA Vol/BSA A2C A-L LA Vol/BSA BP A-L 27.6 mL/m2 LA Vol A4C MOD 54.3 mL LA Vol A2C MOD 46.2 mL LA Vol BP MOD 50.3 mL RA Volume RA Area A4C 16.4 cm2 RA ESV A4C (A-L) 47.3mL RA Vol/BSA A4C A-L RA Length A4C 4.8 cm RA ESV A4C (MOD) 46.4mL LV Diastology MV E Vmax 2.88 (0.4-1.3 m/s) MV A Vmax 1.50 (0.4-1.3 m/s) E/A Ratio 1.9 Aortic Valve AoV Vmax 1.48 m/s LVOT Vmax 1.15 m/s AoV Peak Grad 38.3 mmHg LVOT Peak Grad 5.3 mmHg AoV Area (Vmax) 2.19 cm2 LVOT VTI 0.251 m AoV VTI 0.325 m LVOT Mean Grad 3.1 mmHg AoV Mean Oumar. 0.98 m/s LVOT SV 70.29 mL AoV Mean Grad 4.6 mmHg LVOT Diam s 1.85 cm AoV Area (VTI) 2.16 cm2 AV Regurg Peak Gr. 67.90 mmHg Velocity Ratio 0.78 AR Decel [place] 2.6m/sec2 AR DT 1610 msec AR PHT 467 msec AR Vmax 4.12 m/s Mitral Valve MV DT 565 (160-240 msec) MR Vmax 4.66 m/s MV Vmax TIPS 2.67 m/s MR VTI 1.517 m MV Mean Grad 11.7 (<2mmHg) MR Peak Grad 87.0 mmHg MV PHT 157 msec MR Mean Grad 63.8 mmHg MV Area PHT 1.40 cm2 MR PISA Radius 0.60 cm MV VTI 1.028 m MR Aliasing Velocity 0.30 m/s Pulmonary Valve PV Vmax 1.07 (0.5-1.5 m/s) RVOT Vmax 0.69 m/s PV Peak Grad 4.5 mmHg RVOT Peak Gr. 1.9 mmHg PV Mean Oumar 0.66 m/s RVOT VTI 0.147 m PV Mean Grad 2.0 mmHg RVOT Mean Gr. 1.0 mmHg Tricuspid Valve RA Pressure 8.00 mmHg TR Vmax 3.67 m/s TV S' 0.05 m/s TR Peak Grad 53.9 mmHg RVSP (TR) 61.9 mmHg
== END ==
PROVIDERS: PCP Internal Medicine; Visit Provider Family Medicine
DX: I36.1 Nonrheumatic tricuspid (valve) insufficiency (principal)
CPT/HCPCS: 93306

== ENCOUNTER 2023-09-06 11:31 | Observation (INO) | payer MEDICARE, SELFPAY ==
[2023-09-06] VITALS (58 sets, daily range): BP systolic 82–128; BP diastolic 25–90; PULSE 58–77; RESP 10–25; TEMP 36.7–37.1; O2SAT 88–98
--- NOTE | 2023-09-06 11:30 | RT.EKG_ITS ---
APPROVED REPORT Exam: Resting ECG Reason for Exam: chest pain, sob Patient Location: E HR:64 bpm ECG Measurements Heart Rate 64 AXIS OR 195 P 20 QRSd 103 QRS 5 QT 452 T 86 QTc 467 Conclusion Sinus rhythm...normal P axis, V-rate 60- 99 Inferior infarct, old...Q >35mS, II III aVF
[2023-09-06] MEDS: nitroGLYcerin 0.4 MG TAB SL (11:58)
[2023-09-06] MEDS: Aspirin 81 MG CHEW 324 MG CH (11:58)
[2023-09-06 12:00] LABS: Abs Immature Grans 0.06 10^3/uL (0.0-0.06); Absolute Basophil Count 0.05 10^3/uL (0.0-0.2); Absolute Eosinophil Count 0.14 10^3/uL (0.0-0.7); Absolute Lymphocyte Count 1.76 10^3/uL (1.2-3.4); Absolute Monocyte Count 1.13 10^3/uL (0.1-0.8); Absolute Neutrophil Count 5.96 10^3/uL (1.2-6.7); Basophils % 0.5; Eosinophils % 1.5; HCT 33.3 % (36.0-46.0); HGB 10.7 g/dL (11.2-15.7); Immature Grans % 0.7; Lymphocytes % 19.3; MCH 31.2 pg (27.0-33.0); MCHC 32.1 % (32.0-36.0); MCV 97 fL (80-95); MPV 9.5 fL (8.0-11.0); Monocytes % 12.4; Neutrophils % 65.6; Platelet Count 272 10^3/uL (130-400); RBC 3.43 10^6/uL (3.93-5.22); RDW 15.7 % (11.7-14.6); RDW-SD 53.7 fL
--- NOTE | 2023-09-06 12:10 | DI.RAD_ITS ---
Exam(s) XR PORTABLE CHEST AP EXAM: XR PORTABLE CHEST AP CLINICAL HISTORY: shortness of breath TECHNIQUE: 2D digital imaging was performed of the chest. One image was obtained. An AP view was ob tained. COMPARISON: CR XR PORTABLE CHEST AP from 10/19/2022 FINDINGS: MEDIASTINUM: Normal. HEART: Unchanged cardiomegaly. Status post CABG. PULMONARY VASCULATURE: Normal. LUNGS: Clear. PLEURAL SPACE: No pleural effusion or pneumothorax. BONE:Within normal limits for the patient's age. OTHER FINDINGS:Normal. IMPRESSION: No acute pulmonary findings. DATA REPOSITORY: RADIATION DOSE DELIVERED:
[2023-09-06 12:19] LABS: ALT 23 U/L (14-59); AST 21 U/L (15-37); Albumin 3.3 g/dL (3.4-5.0); Alkaline Phosphatase 115 U/L (46-116); Anion Gap 11.1 mmol/L (3-11); BUN 22 mg/dL (7-18); Bilirubin, Total 0.6 mg/dL (0.2-1.0); CO2 25.9 mmol/L (21.0-32.0); CREATININE 0.9 mg/dL (0.55-1.02); Calcium 9.5 mg/dL (8.5-10.1); Chloride 104 mmol/L (98-107); Estimated GFR 70.51 (mL/min/1.73m2); Glucose 100 mg/dL (74-106); Magnesium 2.1 mg/dL (1.8-2.4); Potassium 4.2 mmol/L (3.5-5.1); Sodium 141 mmol/L (136-145); Troponin I < 50 ng/L (< or =60)
[2023-09-06 12:26] LABS: NT-proBNP 2488 pg/mL (<300)
[2023-09-06 15:04] LABS: Troponin I < 50 ng/L (< or =60)
--- NOTE | 2023-09-06 15:39 | W.PM.HP.N ---
Date of service: 09/06/23 Time of Service: 15:39 Assessment and Plan Assessment and plan (1) Chest pain, rule out acute myocardial infarction: Status: Acute Assessment and plan: Telemetry Troponin trend -If positive [place] [facility] [place] -If negative MPI/ stress test PRN nitro (2) CHF (congestive heart failure): Status: Chronic Assessment and plan: IV lasix hold torsemide continue home med regimen (3) Tobacco abuse: Status: Acute Assessment and plan: PRN nitcotine patch if needed (4) DVT prophylaxis: Status: Acute Assessment and plan: lovenox SC (5) Discharge planning issues: Status: Acute Assessment and plan: CM to f/u Discussed with Dr Ivey History of Present Illness History of Present Illness Chief Complaint: Dyspnea, chest pressure Narrative: This 67 to female patient with a past medical history of coronary artery disease status post CABG, congestive heart failure, reported GERD, bipolar disorder type I, insulin-dependent type 2 diabetes , presented to the ED at [facility] today for evaluation of dyspnea on exertion and chest pressure. Patient reported chest pressure starting 2 days ago with shortness of breath when ambulating to her kitchen; initially intermittent but worsening today. Lab in the ED were unremarkable except for an H&H of 10.7 and 22, BUN of 22. BNP of 2488. troponins were negative x 2. Chest x-ray showed no acute findings as per report. Upon review in comparison to previous x-ray does slightly more congestion. In the ED the patient was treated with Lasix 80 mg IV push x 1. The ED provider reported consulting with [facility] cardiology service with the recommendation to keep the patient here in the hospital to rule out ND. In the mandaen of positive troponin the patient should be transferred to undergo a catheterization. Otherwise the patient should undergo an MPI or cardiac stress test. Hospitalist was consulted and the patient admitted to the medical surgical floor for observation with telemetry and subsequent troponin labs. On arrival to the floor today, the patient reported having had episode of dizziness with onset of chest pressure and shortness of breath prior to arrival, ongoing nausea relieved by food intake. The patient denied change in vision, congestion, cough, hemoptysis, abdominal pain, diarrhea, constipation, melena or hematochezia, or dysuria. Review of Systems All systems reviewed & are unremarkable except as noted in HPI and below Constitutional Constitutional: Denies headache(s) ENT Ears, Nose, Mouth, and Throat: Reports dizziness and Denies headache(s) Cardiovascular Cardiovascular: Reports as per HPI, Reports system reviewed and no additional complaints, except as documented, Denies chest pain and Denies syncope Respiratory Respiratory: Reports as per HPI, Reports system reviewed and no additional complaints, except as documented, Denies chest congestion, Denies cough and Denies hemoptysis Gastrointestinal Gastrointestinal: Reports as per HPI, Reports system reviewed and no additional complaints, except as documented, Denies abdominal pain and Denies melena Genitourinary Genitourinary: Reports system reviewed and no additional complaints, except as documented, Reports as per HPI, Denies hematuria and Denies difficulty voiding Musculoskeletal Musculoskeletal: Reports system reviewed and no additional complaints, except as documented and Reports as per HPI Neurologic Neurologic: Reports system reviewed and no additional complaints, except as documented, Reports as per HPI, Reports dizziness, Denies syncope and Denies headache(s) PFSH All Active Problems (Updated 09/06/23 @ 16:06 by Mark Hernandez MD) VELASQUEZ (dyspnea on exertion) (Acute) Cardiac volume overload (Acute) Injury of left little finger (Acute 07/13/22) Fracture of third metatarsal bone of left foot (Acute 07/13/22) Tobacco abuse (Acute) Bipolar 1 disorder (Acute) Chest pain, rule out acute myocardial infarction (Acute) Hx of CABG (Chronic) Discharge planning issues (Acute) DVT prophylaxis (Acute) Ischemic cardiomyopathy (Chronic) CHF (congestive heart failure) (Chronic) Diabetes mellitus type 2, controlled (Acute) Coronary atherosclerosis (Acute) Accelerating angina (Acute) Hyperlipidemia (Acute) Sinusitis (Acute) Fatigue (Acute) Mitral insufficiency (Acute) Medical History Hypertension GERD (gastroesophageal reflux disease) Fibromyalgia Diabetes Sleep apnea Surgical History Status post carpal tunnel release of both wrists S/P mitral valve clip implantation Hx of CABG 2015 Social History Smoking/Tobacco Use Status: Current every day Tobacco Type: cigarettes Quit status: considering quitting Smoking risk assessment performed?: Yes Alcohol Intake: current Alcohol Intake frequency: a few times a week Alcohol type: wine Drug use: Never Substance use type: does not use Housing: house What type of physical activity do you participate in: other Details: cardiac rehab Do you feel safe at home: Yes Do you feel safe in your relationship?: Yes History History Para 4 Hx # Term Pregnancies Multiple births Hx # Pregnancies Ectopic pregnancies AB induced Hx Number of Living Children AB spontaneous Meds Allergies and Home Medications Allergies Allergy/AdvReac Type Severity Reaction Status Date / Time ezetimibe [From Vytorin] Allergy Unknown Other (See Verified 09/06/23 11:38 Comment) hydrocodone Allergy Unknown Other (See Verified 09/06/23 11:38 Comment) pravastatin Allergy Unknown Other (See Verified 09/06/23 11:38 Comment) simvastatin [From Vytorin] Allergy Unknown Other (See Verified 09/06/23 11:38 Comment) ibuprofen AdvReac Severe severe Verified 09/06/23 11:38 vomiting semaglutide [From Ozempic] AdvReac Severe Other (See Verified 09/06/23 21:38 Comment) Home Medications Medication Instructions Recorded Confirmed Type lamotrigine 100 mg tablet 100 mg PO BID 04/08/14 09/06/23 History (Lamictal) nitroglycerin 0.4 mg sublingual 0.4 mg sublingual Q5 MIN PRN X3 07/01/15 09/06/23 Rx tablet (Nitrostat) PRN Chest Pain #15 tabs aspirin 81 mg tablet,delayed 81 mg PO HS #30 tab-caps 05/29/16 09/06/23 History release (Adult Low Dose Aspirin) rosuvastatin 40 mg tablet (Crestor) 40 mg PO QPM 01/03/18 09/06/23 History multivitamin (Daily Multi-Vitamin 1 tab PO DAILY 01/04/18 09/06/23 History tablet) vitamin B complex (B-Complex 1 tab PO DAILY 01/04/18 09/06/23 History tablet) alprazolam 0.5 mg tablet 0.5 mg PO DAILY PRN anxiety 11/05/18 09/06/23 History naloxone 4 mg/actuation nasal 4 mg intranasal PRN PRN 11/21/18 09/06/23 History spray (Narcan) magnesium L-lactate 84 mg 84 mg PO DAILY 12/23/18 09/06/23 History tablet,extended release pantoprazole 40 mg tablet,delayed 40 mg PO HS 04/07/19 09/06/23 History release insulin glargine 100 unit/mL 48 unit subcut QAM 10/06/19 09/06/23 History subcutaneous solution (Lantus U-100 Insulin) cholecalciferol (vitamin D3) 25 1,000 unit PO DAILY 09/23/20 09/06/23 History mcg (1,000 unit) capsule metoprolol succinate 50 mg 75 mg PO HS 12/27/20 09/06/23 History tablet,extended release 24 hr torsemide 20 mg tablet See Rx Instructions .Route .COMPLEX 08/23/22 09/06/23 History insulin aspart U-100 100 unit/mL 7 unit subcut QAM 08/25/22 09/06/23 History (3 mL) subcutaneous pen (Novolog FlexPen U-100 Insulin aspart) buspirone 15 mg tablet 15 mg PO BID 09/06/23 09/06/23 History citalopram 40 mg tablet (Celexa) 40 mg PO DAILY 09/06/23 09/06/23 History clopidogrel 75 mg tablet 75 mg PO HS 09/06/23 09/06/23 History insulin degludec 100 unit/mL (3 45 unit subcut DAILY 09/06/23 09/06/23 History mL) subcutaneous pen (Tresiba FlexTouch U-100 insulin) isosorbide mononitrate 30 mg 30 mg PO HS 09/06/23 09/06/23 History tablet,extended release 24 hr lamotrigine 25 mg tablet 25 mg PO BID 09/06/23 09/06/23 History meloxicam 7.5 mg tablet 7.5 mg PO DAILY 09/06/23 09/06/23 History spironolactone 25 mg tablet 12.5 mg PO HS 09/06/23 09/06/23 History isosorbide mononitrate 30 mg 30 mg PO HS #30 tabs 09/07/23 Rx tablet,extended release 24 hr Exam Narrative Exam Narrative: Constitutional The patient is lying in bed comfortable, minimal chest prsuure c/t initially, eating dinner and cooperative during the interview. The patient is without acute distress and has obese body habitus HENMT: Head is atraumatic, normocephalic, no lymphadenopathy. Facial structures with normal appearance Eyes: Well aligned Neck: Normal ROM, no meningeal signs Neuro:alert and oriented to self, person, place time and situation. No neurological focal deficit Resp: Normal respiratory pattern, speaks in full sentences, unlabored breathing, clear lung bilaterally Cardio: Tele SR HR 60,regular rhythm, S1, S2, no murmur,pulses positive X4 GI: Abdomen is not distended, soft and non tender, bowel sounds are present Back/spine/Pelvis: No back tenderness, normal alignment Extremities: strength 5/5 to bilateral lower and upper extremities Psych: RASS 0, congruent mood and normal affect. Results Labs 09/07/23 06:20 09/07/23 06:20 Labs: Laboratory Results - last 24 hr 09/06/23 09/06/23 09/06/23 11:43 12:09 14:43 WBC 9.10 RBC 3.43 L Hgb 10.7 L Hct 33.3 L MCV 97 H MCH 31.2 MCHC 32.1 RDW 15.7 H Plt Count 272 MPV 9.5 Immature Gran % 0.7 Neutrophils % 65.6 Lymphocytes % 19.3 Monocytes % 12.4 Eosinophils % 1.5 Basophils % 0.5 Nucleated RBC % 0.0 Absolute Neutrophils 5.96 Absolute Lymphocytes 1.76 Absolute Monocytes 1.13 H Absolute Eosinophils 0.14 Absolute Basophils 0.05 Sodium 141 Potassium 4.2 Chloride 104 Carbon Dioxide 25.9 Anion Gap 11.1 H BUN 22 H Creatinine 0.9 Est GFR (CKD-EPI 2020) 70.51 Glucose 100 Calcium 9.5 Magnesium 2.1 Total Bilirubin 0.6 AST 21 ALT 23 Alkaline Phosphatase 115 Troponin I < 50 < 50 NT-Pro-B Natriuret Pep 2488 H Total Protein 8.0 Albumin 3.3 L Patient ABO/Rh O Positive Antibody Screen NEGATIVE Last Vital Signs Pulse 59 L 09/06/23 13:11 Resp 15 09/06/23 13:11 BP 101/30 L 09/06/23 13:11 Pulse Ox 93 09/06/23 13:11 Time Spent Time spent with Patient: 55-74 minutes Time was spent: preparing to see the patient(eg.review tests), obtaining and/or reviewing separately otained hiistory, ordering medications,tests, procedures, referring, communicating with other health inspector health care facilities, indepentently interpreting results, counseling the patient and care coordination
[2023-09-06] MEDS: Furosemide 100 MG/10 ML VIAL 80 MG IVP (15:45)
--- NOTE | 2023-09-06 15:59 | ED.GENADUL_ITS ---
Discharge Plan Disposition Patient Disposition: Admit to [facility] Condition: Stable Discharge Details Chief Complaint: Chest Pain Clinical Impression: Cardiac volume overload, VELASQUEZ (dyspnea on exertion), Ischemic cardiomyopathy, Chest pain, rule out acute myocardial infarction Primary Care Provider: Wily Starks ED Provider: Mark Hernandez Home Meds and New Rx's Prescriptions: No Action magnesium L-lactate 84 mg tablet extended release 84 mg PO DAILY pantoprazole 40 mg tablet,delayed release (DR/EC) 40 mg PO DAILY aspirin [Adult Low Dose Aspirin] 81 MG tablet,delayed release (DR/EC) 81 mg PO DAILY Qty: 30 tramadol 50 mg tablet 50 mg PO BID PRN Patient Comments: pt states no longer taking insulin degludec [Tresiba FlexTouch U-100] 100 unit/mL (3 mL) insulin pen 45 unit subcut DAILY acetaminophen-codeine 300-30 mg tablet 1 tab PO Q6H PRN insulin aspart U-100 [Novolog FlexPen U-100 Insulin] 100 unit/mL (3 mL) insulin pen 10 unit SUBCUT QAM cyclobenzaprine 10 mg tablet 10 mg PO HS PRN lisinopril [Prinivil] 10 mg tablet 10 mg PO BID Qty: 90 lamotrigine [Lamictal] 100 MG tablet 100 mg PO BID nitroglycerin [Nitrostat] 0.4 MG tablet, sublingual 0.4 mg Sublingual Q5 MIN PRN X3 PRN (Reason: Chest Pain) Qty: 15 0RF cholecalciferol (vitamin D3) 25 mcg (1,000 unit) Capsule 1,000 unit PO DAILY lidocaine [Lidocan II] 5 % adhesive patch,medicated 1 patch topical DAILY Qty: 15 0RF Rx Instructions: leave on most painful area for up to 12 hrs rosuvastatin [Crestor] 40 MG tablet 40 mg PO QPM multivitamin [Daily Multi-Vitamin] 1 EACH tablet 1 tab PO DAILY vitamin B complex [B-Complex] 1 EACH tablet 1 tab PO DAILY alprazolam 0.5 mg Tablet 0.5 mg PO PRN PRN Rx Instructions: 1-2 times per day prn for anxiety citalopram 20 mg Tablet 40 mg PO DAILY insulin glargine [Lantus U-100 Insulin] 100 unit/mL solution 48 unit subcut QAM Patient Comments: not taking naloxone [Narcan] 4 mg/actuation [place],Non-Aerosol 4 mg intranasal PRN PRN clopidogrel 75 mg tablet 75 mg PO DAILY metoprolol succinate 50 mg tablet extended release 24 hr 75 mg PO DAILY Patient Comments: TAKE 1 AND 1/2 TABLETS BY MOUTH DAILY isosorbide mononitrate 30 mg Tablet Extended Release 24 Hr 60 mg PO HS Qty: 60 0RF torsemide 20 mg tablet 20 mg PO BID Patient Comments: TAKE 1 TABLET BY MOUTH TWICE DAILY IN THE MORNING AND EARLY AFTERNOON HPI General Date/Time Provider Initiated Documentation: 09/06/23 11:46 . Limitations to Documentation: no limitations . Information obtained by: patient and old records reviewed . HPI Narrative: 68-year-old female with past medical history of significant coronary artery disease, status post CABG, stent, diabetes, CHF, ischemic cardiomyopathy presents for evaluation of shortness of breath on exertion. Reports for the last several days she is unable to get around her house without having significant shortness of breath. She is normally able to do these activities without any difficulty. She reports that she has gained 2.5 pounds of weight since Wednesday. She reports a sensation of chest pressure, 2 out of 10. No chest pain. No jaw pain or arm pain. Reports that she has taken her nitroglycerin at home with some improvement in her symptoms. Related Data Home Medications Medication Instructions Recorded Confirmed lamotrigine 100 mg tablet 100 mg PO BID 04/08/14 05/10/23 (Lamictal) nitroglycerin 0.4 mg sublingual 0.4 mg sublingual Q5 MIN PRN X3 07/01/15 05/10/23 tablet (Nitrostat) PRN Chest Pain #15 tabs aspirin 81 mg tablet,delayed 81 mg PO DAILY #30 tab-caps 05/29/16 05/10/23 release (Adult Low Dose Aspirin) rosuvastatin 40 mg tablet (Crestor) 40 mg PO QPM 01/03/18 05/10/23 multivitamin (Daily Multi-Vitamin 1 tab PO DAILY 01/04/18 05/10/23 tablet) vitamin B complex (B-Complex 1 tab PO DAILY 01/04/18 05/10/23 tablet) alprazolam 0.5 mg tablet 0.5 mg PO PRN PRN 11/05/18 05/10/23 citalopram 20 mg tablet 40 mg PO DAILY 11/05/18 05/10/23 naloxone 4 mg/actuation nasal 4 mg intranasal PRN PRN 11/21/18 05/10/23 spray (Narcan) magnesium L-lactate 84 mg 84 mg PO DAILY 12/23/18 05/10/23 tablet,extended release pantoprazole 40 mg tablet,delayed 40 mg PO DAILY 04/07/19 05/10/23 release insulin glargine 100 unit/mL 48 unit subcut QAM 10/06/19 05/10/23 subcutaneous solution (Lantus U-100 Insulin) cholecalciferol (vitamin D3) 25 1,000 unit PO DAILY 09/23/20 05/10/23 mcg (1,000 unit) capsule clopidogrel 75 mg tablet 75 mg PO DAILY 12/27/20 05/10/23 isosorbide mononitrate 30 mg 60 mg (2 x 30 mg) PO HS #60 tabs 12/27/20 05/10/23 tablet,extended release 24 hr metoprolol succinate 50 mg 75 mg PO DAILY 12/27/20 05/10/23 tablet,extended release 24 hr torsemide 20 mg tablet 20 mg PO BID 08/23/22 05/10/23 acetaminophen 300 mg-codeine 30 mg 1 tab PO Q6H PRN 08/25/22 05/10/23 tablet cyclobenzaprine 10 mg tablet 10 mg PO HS PRN 08/25/22 05/10/23 insulin aspart U-100 100 unit/mL 10 unit subcut QAM 08/25/22 05/10/23 (3 mL) subcutaneous pen (Novolog FlexPen U-100 Insulin aspart) insulin degludec 100 unit/mL (3 45 unit subcut DAILY 08/25/22 05/10/23 mL) subcutaneous pen (Tresiba FlexTouch U-100 insulin) lisinopril 10 mg tablet (Prinivil) 10 mg PO BID #90 tab-caps 08/25/22 05/10/23 tramadol 50 mg tablet 50 mg PO BID PRN 08/25/22 05/10/23 lidocaine 5 % topical patch 1 patch topical DAILY #15 ea 05/10/23 (Lidocan II) Previous Rx's Medication Instructions Recorded nitroglycerin 0.4 mg sublingual 0.4 mg sublingual Q5 MIN PRN X3 07/01/15 tablet (Nitrostat) PRN Chest Pain #15 tabs isosorbide mononitrate 30 mg 60 mg (2 x 30 mg) PO HS #60 tabs 12/27/20 tablet,extended release 24 hr lidocaine 5 % topical patch 1 patch topical DAILY #15 ea 05/10/23 (Lidocan II) Allergies Allergy/AdvReac Type Severity Reaction Status Date / Time ezetimibe [From Vytorin] Allergy Unknown Other (See Verified 09/06/23 11:38 Comment) hydrocodone Allergy Unknown Other (See Verified 09/06/23 11:38 Comment) pravastatin Allergy Unknown Other (See Verified 09/06/23 11:38 Comment) simvastatin [From Vytorin] Allergy Unknown Other (See Verified 09/06/23 11:38 Comment) ibuprofen AdvReac Severe severe Verified 09/06/23 11:38 vomiting General Stated Complaint: Chest Pain CHRIS: 3 Exam Narrative Exam Narrative: Review of Systems: All systems reviewed & are unremarkable except as noted in HPI and below Well-developed, no acute distress NCAT PERRL, normal conjunctiva RRR, murmur, sternotomy scar noted Unlabored respiratory effort, diminished breath sounds, no hypoxia, crackles at the bases Nondistended abdomen , nontender Extremities w/o deformity, no cyanosis, no edema No rashes or lesions. no focal neurologic deficits Appropriate mood and affect Course Vital Signs Vital signs: Vital Signs Pulse 70 09/06/23 11:34 Respiratory Rate 20 09/06/23 11:34 Blood Pressure 112/46 L 09/06/23 11:34 Pulse Oximetry 97 09/06/23 11:34 Pulse 59 L 09/06/23 13:11 Pulse 60 09/06/23 13:11 Respiratory Rate 15 09/06/23 13:11 Respiratory Effort Short of Breath 09/06/23 11:44 Respiratory Depth Normal 09/06/23 11:44 Respiratory Pattern Normal 09/06/23 11:44 Blood Pressure 101/30 L 09/06/23 13:11 Blood Pressure Mean 58 09/06/23 13:11 Pulse Oximetry 93 09/06/23 13:11 Oxygen Delivery Method Room Air 09/06/23 11:34 Oxygen Flow Rate 0 09/06/23 11:34 Lab/Test Results Lab/Test Results: Laboratory Tests Range/Units 09/06/23 09/06/2309/05/24 11:43 12:09 14:43 WBC (4.4-10.8) 10^3/uL 9.10 RBC (3.93-5.22) 10^6/uL 3.43 L Hgb (11.2-15.7) g/dL 10.7 L Hct (36.0-46.0) % 33.3 L MCV (80-95) fL 97 H MCH (27.0-33.0) pg 31.2 MCHC (32.0-36.0) % 32.1 RDW (11.7-14.6) % 15.7 H Plt Count (130-400) 10^3/uL 272 MPV (8.0-11.0) fL 9.5 Immature Gran % 0.7 Neutrophils % 65.6 Lymphocytes % 19.3 Monocytes % 12.4 Eosinophils % 1.5 Basophils % 0.5 Nucleated RBC % (0.0-0.3) % 0.0 Absolute Neutrophils (1.2-6.7) 10^3/uL 5.96 Absolute Lymphocytes (1.2-3.4) 10^3/uL 1.76 Absolute Monocytes (0.1-0.8) 10^3/uL 1.13 H Absolute Eosinophils (0.0-0.7) 10^3/uL 0.14 Absolute Basophils (0.0-0.2) 10^3/uL 0.05 Sodium (136-145) mmol/L 141 Potassium (3.5-5.1) mmol/L 4.2 Chloride (98-107) mmol/L 104 Carbon Dioxide (21.0-32.0) mmol/L 25.9 Anion Gap (3-11) mmol/L 11.1 H BUN (7-18) mg/dL 22 H Creatinine (0.55-1.02) mg/dL 0.9 Est GFR (CKD-EPI 2020) (mL/min/1.73m2) 70.51 Glucose (74-106) mg/dL 100 Calcium (8.5-10.1) mg/dL 9.5 Magnesium (1.8-2.4) mg/dL 2.1 Total Bilirubin (0.2-1.0) mg/dL 0.6 AST (15-37) U/L 21 ALT (14-59) U/L 23 Alkaline Phosphatase (46-116) U/L 115 Troponin I (< or =60) ng/L < 50 < 50 NT-Pro-B Natriuret Pep (<300) pg/mL 2488 H Total Protein (6.4-8.2) g/dL 8.0 Albumin (3.4-5.0) g/dL 3.3 L Patient ABO/Rh O Positive Antibody Screen NEGATIVE Medical Decision Making Emergent evaluation of shortness of breath. Initial differential includes CHF exacerbation, ACS, pneumonia. Patient is not hypoxic or having a significant increased work of breathing however given her dyspnea on exertion and waking, significantly concern for cardiac etiology. Patient is high risk. Full dose aspirin given. Nitro provided for chest pressure sensation Lab work reviewed. Initial troponin is negative. Remainder of lab work unremarkable. Chest x-ray reviewed. Significant cardiomegaly, no pleural effusion, slight interstitial fullness noted. 1430 Discussed with cardiology at [facility]. States that patient can stay at this facility for full cardiac rule out and stress testing if troponins flat and EKG use without dynamic change. They recommend that if her troponin elevates, she should start ACS protocol be transferred to their facility. Updated the hospitalist after discussion with the cardiology team at [facility]. 2 troponins have been negative. At this time I feel the patient is stable for hospitalization here for further cardiac rule out given her high risk factors and diuresis for volume overload. Medical Records Medical records reviewed: Yes I reviewed the patient's medical records. Lab Data Lab results reviewed: Yes I reviewed the patient's lab results. Quality:SDFL Health Related Social Needs: No Data to Display [facility] All Active Problems (Updated 09/06/23 @ 16:06 by Mark Hernandez MD) VELASQUEZ (dyspnea on exertion) (Acute) Cardiac volume overload (Acute) Injury of left little finger (Acute 07/13/22) Fracture of third metatarsal bone of left foot (Acute 07/13/22) Tobacco abuse (Acute) Bipolar 1 disorder (Acute) Chest pain, rule out acute myocardial infarction (Acute) Hx of CABG (Chronic) Discharge planning issues (Acute) DVT prophylaxis (Acute) Ischemic cardiomyopathy (Chronic) CHF (congestive heart failure) (Chronic) Diabetes mellitus type 2, controlled (Acute) Coronary atherosclerosis (Acute) Accelerating angina (Acute) Hyperlipidemia (Acute) Sinusitis (Acute) Fatigue (Acute) Mitral insufficiency (Acute) Medical History Hypertension GERD (gastroesophageal reflux disease) Fibromyalgia Diabetes Sleep apnea Surgical History Status post carpal tunnel release of both wrists S/P mitral valve clip implantation Hx of CABG 2015 Social History Smoking/Tobacco Use Status: Current every day Tobacco Type: cigarettes Quit status: considering quitting Smoking risk assessment performed?: Yes Alcohol Intake: current Alcohol Intake frequency: a few times a week Alcohol type: wine Drug use: Never Substance use type: does not use Housing: house What type of physical activity do you participate in: other Details: cardiac rehab Do you feel safe at home: Yes Do you feel safe in your relationship?: Yes History History Para 4 Hx # Term Pregnancies Multiple births Hx # Pregnancies Ectopic pregnancies AB induced Hx Number of Living Children AB spontaneous
--- NOTE | 2023-09-06 16:33 | NUR.NOTE ---
Nursing Note: Patient arrived to unit with no complaints and denied discomfort but noted tolerable 2/10 severity nausea. Patient requested dinner.
[2023-09-06] MEDS: Enoxaparin 40 MG/0.4 ML SYR SC (17:51)
[2023-09-06] MEDS: Normal Saline Flush 10 ML SYR IVP (19:34)
[2023-09-06] MEDS: Rosuvastatin 20 MG TAB 40 MG PO (19:35)
[2023-09-06 20:40] LABS: Troponin I < 50 ng/L (< or =60)
--- NOTE | 2023-09-06 21:39 | TELEP.MEDR_ITS ---
Date of service: 09/06/23 Time of Service: 21:39 Telepharmacy Home Med Rec Allergies Allergies: ezetimibe [From Vytorin] Allergy (Unknown, Verified 09/06/23 11:38) Other (See Comment) hydrocodone Allergy (Unknown, Verified 09/06/23 11:38) Other (See Comment) pravastatin Allergy (Unknown, Verified 09/06/23 11:38) Other (See Comment) simvastatin [From Vytorin] Allergy (Unknown, Verified 09/06/23 11:38) Other (See Comment) ibuprofen Adverse Reaction (Severe, Verified 09/06/23 11:38) severe vomiting semaglutide [From Ozempic] Adverse Reaction (Severe, Verified 09/06/23 21:38) Other (See Comment) Interview Person Interviewed: Pt Quality Quality of Interview/Accuracy of Medication List: Good Sources Sources used to compile medication list: Klique Medication List, Patient List and SureScripts Changes made to Home Medication List: ADDITIONS: * Clopidogrel 75 mg po qhs * Insulin degludec 45 units sc qam 45 minutes after insulin aspart DELETIONS: * Buspirone * Insulin glargine CHANGES: * Alprazolam sig/comment updated to match Surescript data. * ASA taken qhs instead of qday * Insulin aspart reduced from 10 units to 7 units sc qam * Isosorbide mononitrate reduced from 60 mg to 30 mg po qhs * Meloxicam sig specified * Metoprolol succinate taken qhs instead of qday * Pantoprazole taken qhs instead of qday * Spironolactone sig specified * Torsemide sig updated to 40 mg po qam and 20 mg po q midafternoon Additional Notes Additional Notes: * Surescripts data not available for the majority of the pt's list; only positively know that pt filled alprazolam 0.5 mg 28 day supply (per rx sig) on 08/16/23 and magnesium 90 day supply on 07/07/23. Other Surescripts data indicates pt should have run out before now if she were compliant with her meds. * Pt requesting an alprazolam tonight to help her sleep. Recommended Changes Recommended Changes(reason for recommendation): * Clopidogrel contraindicated with PPIs; recommend either switch clopidogrel with a different antiplatelet agent or switch pantoprazole with an H2 antagonist. Attestation: The home medication list is now updated to the best of my knowledge and is ready to be reconciled by the provider. Please contact the TelePharmacy Medication Reconciliation Pharmacist at for any questions.
[2023-09-06] MEDS: ALPRAZolam 0.5 MG TAB PO (22:20)
[2023-09-06] MEDS: Metoprolol CR 50 MG TABCR 75 MG PO (22:21)
[2023-09-06] MEDS: Clopidogrel 75 MG TAB PO (23:00)
[2023-09-07 03:12] VITALS: BP 121/60; PULSE 62; RESP 16; TEMP 36.1; O2SAT 96
[2023-09-07 06:45] LABS: Abs Immature Grans 0.06 10^3/uL (0.0-0.06); Absolute Basophil Count 0.05 10^3/uL (0.0-0.2); Absolute Eosinophil Count 0.19 10^3/uL (0.0-0.7); Absolute Monocyte Count 0.97 10^3/uL (0.1-0.8); Absolute Neutrophil Count 5.53 10^3/uL (1.2-6.7); Basophils % 0.6; Eosinophils % 2.3; HCT 32.6 % (36.0-46.0); HGB 10.5 g/dL (11.2-15.7); Immature Grans % 0.7; MCH 31.3 pg (27.0-33.0); MCHC 32.2 % (32.0-36.0); MCV 97 fL (80-95); MPV 9.6 fL (8.0-11.0); Monocytes % 11.5; Neutrophils % 65.9; Platelet Count 247 10^3/uL (130-400); RBC 3.35 10^6/uL (3.93-5.22); RDW 15.6 % (11.7-14.6); RDW-SD 54.4 fL
[2023-09-07 06:56] LABS: Anion Gap 9.8 mmol/L (3-11); BUN 24 mg/dL (7-18); CO2 25.2 mmol/L (21.0-32.0); CREATININE 0.9 mg/dL (0.55-1.02); Calcium 8.7 mg/dL (8.5-10.1); Chloride 105 mmol/L (98-107); Estimated GFR 70.51 (mL/min/1.73m2); Glucose 185 mg/dL (74-106); Potassium 4.6 mmol/L (3.5-5.1); Sodium 140 mmol/L (136-145)
[2023-09-07 07:09] VITALS: BP 114/75; PULSE 59; RESP 19; TEMP 35.8; O2SAT 93
[2023-09-07] MEDS: Cholecalciferol (Vitamin D3) 1,000 UNIT TAB 1000 UNITS PO (08:12)
[2023-09-07] MEDS: Multivitamin TAB 1 TAB PO (08:12)
[2023-09-07] MEDS: Aspirin E.C. 81 MG TABEC PO (08:12)
[2023-09-07] MEDS: Magnesium Lactate-SR 84 MG TABCR PO (08:12)
[2023-09-07] MEDS: Vitamins B Comp w/C TAB 1 TAB PO (08:13)
[2023-09-07] MEDS: Pantoprazole 40 MG TABCR PO (08:13)
[2023-09-07] MEDS: Furosemide 40 MG/4 ML VIAL IVP (08:14)
[2023-09-07] MEDS: Normal Saline Flush 10 ML SYR IVP (08:14)
--- NOTE | 2023-09-07 09:56 | W.PM.DS.N ---
Date of service: 09/07/23 Time of Service: 09:57 DS: Diagnosis Discharge Diagnosis (1) Chest pain, rule out acute myocardial infarction: Status: Acute (2) CHF (congestive heart failure): Status: Chronic (3) Tobacco abuse: Status: Acute (4) DVT prophylaxis: Status: Acute (5) Discharge planning issues: Status: Acute Discharge Plan Disposition Patient Disposition: Home Condition: Improving Discharge Details Reason For Visit: dyspnea,chest pressure r/o CT Admit Date/Time: 09/06/23 15:37 Admit Provider: Rashad Ivey Attending Provider: Rashad Ivey Primary Care Provider: Wily [facility] Hospital Course: This 67 years old female patient with a past medical history of coronary artery disease status post CABG, congestive heart failure, reported GERD, bipolar disorder type I, insulin-dependent type 2 diabetes, presented to the ED at [facility] on 09/06/2023 for evaluation of dyspnea on exertion and chest pressure. Patient reported chest pressure starting 2-day prior to arrival which shortness of breath during ambulation to her kitchen; initially reported as intermittent but worsening. Labs in the ED are were unremarkable, except for H&H of 10.7 and 33, BUN of 22, BNP of 2488 (which was maxed at 3266 in 05/2023) . Troponins were negative x 2. Chest x-ray showed no acute finding as per report but upon review in comparison to previous chest x-ray there was slightly increased congestion. In the ED the patient was treated with furosemide 80 IV push x 1. [facility] cardiology consultation resulted with recommendation for admitting the patient myocardial infarction with transfer for a catheterization for positive troponin . Otherwise the patient should undergo an MPI or cardiac stress test. Hospitalist was consulted and the patient admitted to the medical surgical floor for observation with telemetry and subsequent troponin labs. During the stay the troponin result remained negative. The patient received further diuresis without any further c/o of dyspnea or chest pressure. A Medication reconciliation was completed with pharmacy and [facility] as patient could not always remember her medications' names in full.For the mangement of her type II diabetes, the patient received Lantus insulin adjusted as per pharmacy to the dose of home Tresiba; and an insulin sliding scale. The patient will resume her diabetic medication regimen at home and take her Tresiba tomorrow morning. The patient will be discharge home today on her home medications regimen.The patient will have have to complete a cardiac stress test / MPI outpatient ordered for 09/09/2023 at 11:30.The patient will need to f/u with her PCP as scheduled. Discussed with Dr. Ivey Home Meds and New Rx's Prescriptions: New isosorbide mononitrate 30 mg Tablet Extended Release 24 Hr 30 mg PO HS Qty: 30 0RF Continued magnesium L-lactate 84 mg tablet extended release 84 mg PO DAILY pantoprazole 40 mg tablet,delayed release (DR/EC) 40 mg PO HS aspirin [Adult Low Dose Aspirin] 81 MG tablet,delayed release (DR/EC) 81 mg PO HS Qty: 30 insulin aspart U-100 [Novolog FlexPen U-100 Insulin] 100 unit/mL (3 mL) insulin pen 7 unit SUBCUT QAM lamotrigine [Lamictal] 100 MG tablet 100 mg PO BID Patient Comments: Total 125 mg po bid nitroglycerin [Nitrostat] 0.4 MG tablet, sublingual 0.4 mg Sublingual Q5 MIN PRN X3 PRN (Reason: Chest Pain) Qty: 15 0RF cholecalciferol (vitamin D3) 25 mcg (1,000 unit) Capsule 1,000 unit PO DAILY lamotrigine 25 mg tablet 25 mg PO BID Patient Comments: Total 125 mg po bid citalopram [Celexa] 40 mg tablet 40 mg PO DAILY meloxicam 7.5 mg tablet 7.5 mg PO DAILY Patient Comments: Pt has on hand but has never taken spironolactone 25 mg tablet 12.5 mg PO HS Patient Comments: Take 1/2 tablet by mouth once a day insulin degludec [Tresiba FlexTouch U-100] 100 unit/mL (3 mL) insulin pen 45 unit SUBCUT DAILY Patient Comments: INJECT 45 UNITS UNDER THE SKIN ONCE A DAY IN THE MORNING Rx Instructions: 45 minutes after Novolog clopidogrel 75 mg tablet 75 mg PO HS Patient Comments: TAKE 1 TABLET EVERY DAY isosorbide mononitrate 30 mg Tablet Extended Release 24 Hr 30 mg PO HS rosuvastatin [Crestor] 40 MG tablet 40 mg PO QPM multivitamin [Daily Multi-Vitamin] 1 EACH tablet 1 tab PO DAILY vitamin B complex [B-Complex] 1 EACH tablet 1 tab PO DAILY alprazolam 0.5 mg Tablet 0.5 mg PO DAILY PRN (Reason: anxiety) Rx Instructions: Max 2 times per week prn for anxiety naloxone [Narcan] 4 mg/actuation [place],Non-Aerosol 4 mg intranasal PRN PRN metoprolol succinate 50 mg tablet extended release 24 hr 75 mg PO HS Patient Comments: TAKE 1 AND 1/2 TABLETS BY MOUTH DAILY torsemide 20 mg tablet See Rx Instructions .ROUTE .COMPLEX Rx Instructions: Take 2 tabs po qam and 1 tab in midafternoon; Held buspirone 15 mg tablet 15 mg PO BID Hold Instructions: Resume on 09/14/23. As per PCP Patient Comments: TAKE ONE-THIRD TABLET BY MOUTH TWO TIMES A DAY; GRADUALLY INCREASE MAX TO ONE TABLET TWO TIMES A DAY insulin glargine [Lantus U-100 Insulin] 100 unit/mL solution 48 unit subcut QAM Hold Instructions: Resume on 09/07/23. As per PCP Patient Comments: not taking Discharge Instructions Stand Alone Forms: Nursing Discharge Form Referrals: Wily Starks MD [Primary Care Provider] - 09/20/23 11:30 am Activity:: Activity as Tolerated Equipment/Supplies:: No Equipment Needed Diet:: heart healthy diabetic Discharge Orders Other Ambulatory Orders: [place] MPI rest & stress grp (Routine) Timeframe: 20230907 Facility: [facility] - Location: Nuclear Medicine Department Ordered By: Candace Holm [place] MPI rest & stress grp (Routine) Timeframe: 20230909 Facility: [facility] - Location: Nuclear Medicine Department Ordered By: Candace Holm DS: Summary Time Spent with Patient providing and/or coordinating discharge services: Greater than 30 minutes Status at Discharge Functional status at discharge: independent ambulation Overall status at discharge: patient is progressing back to baseline Mental Status: mental status grossly normal Speech and Movement: speech and movement normal Mood: congruent mood Affect: normal affect Quality:SDOH Health Related Social Needs: No Data to Display Exam Narrative Exam Narrative: Constitutional The patient is lying in bed comfortable without acute distress and has obese body habitus HENMT: Facial structures with normal appearance Neuro:alert and oriented X4. No neurological focal deficit noted. Resp: Normal respiratory pattern,clear lung bilaterally with decreased bases Cardio: Tele SR HR 60,regular rhythm, S1, S2 GI: Abdomen is not distended, soft and non tender, bowel sounds are present Psych: RASS 0, congruent mood and normal affect. Psych Mental Status: mental status grossly normal Speech and Movement: speech and movement normal Mood: congruent mood Affect: normal affect DS: Data Vitals/I&O Vitals and I&O: Vital Signs Temperature 35.8 C L 09/07/23 07:09 Temperature Source Tympanic 09/07/23 07:09 Pulse 59 L 09/07/23 07:09 Pulse Rhythm Regular 09/07/23 08:03 Pulse 63 09/06/23 16:01 Respiratory Rate 19 09/07/23 07:09 Respiratory Effort Normal 09/07/23 08:03 Respiratory Depth Normal 09/07/23 08:03 Respiratory Pattern Normal 09/07/23 08:03 Blood Pressure 114/75 09/07/23 07:09 Blood Pressure Mean 66 09/06/23 16:01 Pulse Oximetry 93 09/07/23 07:09 Oxygen Delivery Method Room Air 09/07/23 07:09 Oxygen Flow Rate 0 09/07/23 07:09 Pain Level 0 09/07/23 08:00 Comment BP called over radio 09/06/23 18:25 Intake & Output 09/06/23 09/06/23 09/07/23 11:59 23:59 11:59 Output Total 1050 / 1050 Balance -1050 / -1050 Weight 89.811 kg 87.4 kg Output: Urine 1050 / 1050 Other: Urine Color Yellow Urine Appearance Clear Clear Comment toilet insert Voiding Methods Bedside Commode Data Completed and Pending Labs on day of discharge: Labs from last 24 hours 09/07/23 09/06/23 09/06/23 06:20 20:15 14:43 WBC 8.40 RBC 3.35 L Hgb 10.5 L Hct 32.6 L MCV 97 H MCH 31.3 MCHC 32.2 RDW 15.6 H Plt Count 247 MPV 9.6 Immature Gran % 0.7 Neutrophils % 65.9 Lymphocytes % 19.0 Monocytes % 11.5 Eosinophils % 2.3 Basophils % 0.6 Nucleated RBC % 0.0 Absolute Neutrophils 5.53 Absolute Lymphocytes 1.60 Absolute Monocytes 0.97 H Absolute Eosinophils 0.19 Absolute Basophils 0.05 Sodium 140 Potassium 4.6 Chloride 105 Carbon Dioxide 25.2 Anion Gap 9.8 BUN 24 H Creatinine 0.9 Est GFR (CKD-EPI 2020) 70.51 Glucose 185 H Calcium 8.7 Magnesium Total Bilirubin AST ALT Alkaline Phosphatase Troponin I < 50 < 50 NT-Pro-B Natriuret Pep Total Protein Albumin Patient ABO/Rh Antibody Screen 09/06/23 09/06/23 12:09 11:43 WBC 9.10 RBC 3.43 L Hgb 10.7 L Hct 33.3 L MCV 97 H MCH 31.2 MCHC 32.1 RDW 15.7 H Plt Count 272 MPV 9.5 Immature Gran % 0.7 Neutrophils % 65.6 Lymphocytes % 19.3 Monocytes % 12.4 Eosinophils % 1.5 Basophils % 0.5 Nucleated RBC % 0.0 Absolute Neutrophils 5.96 Absolute Lymphocytes 1.76 Absolute Monocytes 1.13 H Absolute Eosinophils 0.14 Absolute Basophils 0.05 Sodium 141 Potassium 4.2 Chloride 104 Carbon Dioxide 25.9 Anion Gap 11.1 H BUN 22 H Creatinine 0.9 Est GFR (CKD-EPI 2020) 70.51 Glucose 100 Calcium 9.5 Magnesium 2.1 Total Bilirubin 0.6 AST 21 ALT 23 Alkaline Phosphatase 115 Troponin I < 50 NT-Pro-B Natriuret Pep 2488 H Total Protein 8.0 Albumin 3.3 L Patient ABO/Rh O Positive Antibody Screen NEGATIVE PFSH All Active Problems (Updated 09/06/23 @ 16:06 by Mark Hernandez MD) VELASQUEZ (dyspnea on exertion) (Acute) Cardiac volume overload (Acute) Injury of left little finger (Acute 07/13/22) Fracture of third metatarsal bone of left foot (Acute 07/13/22) Tobacco abuse (Acute) Bipolar 1 disorder (Acute) Chest pain, rule out acute myocardial infarction (Acute) Hx of CABG (Chronic) Discharge planning issues (Acute) DVT prophylaxis (Acute) Ischemic cardiomyopathy (Chronic) CHF (congestive heart failure) (Chronic) Diabetes mellitus type 2, controlled (Acute) Coronary atherosclerosis (Acute) Accelerating angina (Acute) Hyperlipidemia (Acute) Sinusitis (Acute) Fatigue (Acute) Mitral insufficiency (Acute) Medical History Hypertension GERD (gastroesophageal reflux disease) Fibromyalgia Diabetes Sleep apnea Surgical History Status post carpal tunnel release of both wrists S/P mitral valve clip implantation Hx of CABG 2016 Social History Smoking/Tobacco Use Status: Current every day Tobacco Type: cigarettes Quit status: considering quitting Smoking risk assessment performed?: Yes Alcohol Intake: current Alcohol Intake frequency: a few times a week Alcohol type: wine Drug use: Never Substance use type: does not use Housing: house What type of physical activity do you participate in: other Details: cardiac rehab Do you feel safe at home: Yes Do you feel safe in your relationship?: Yes History History Para 4 Hx # Term Pregnancies Multiple births Hx # Pregnancies Ectopic pregnancies AB induced Hx Number of Living Children AB spontaneous Time Spent with Patient Time Spent with Patient: 45-69 minutes Time was spent: preparing to see the patient(eg.review tests), obtaining and/or reviewing separately otained hiistory, ordering medications,tests, procedures, referring, communicating with other health hospice care transitions coordinator, indepentently interpreting results, counseling the patient and care coordination
[2023-09-07 10:31] LABS: Magnesium 2.3 mg/dL (1.8-2.4)
[2023-09-07] MEDS: Insulin Glargine 300 UNITS/3 ML PEN 36 UNITS SC (11:09)
[2023-09-07] MEDS: lamoTRIgine 25 MG TAB PO (11:10)
[2023-09-07] MEDS: lamoTRIgine 100 MG TAB PO (11:10)
[2023-09-07 11:32] VITALS: BP 110/46; PULSE 55; RESP 16; TEMP 36.8; O2SAT 97
[2023-09-07] MEDS: Insulin Aspart 300 UNITS/3 ML PEN SC (12:18)
--- NOTE | 2023-09-07 12:59 | PDOC.CMDIS ---
Date of service: 09/07/23 LACE Index Scoring Tool Questions: Length of Stay (in days): 1 Was the patient admitted via the E.D.?: Yes Comorbidities: Congestive Heart Failure E.D. Visits: 1 Answers: Total Score: 7 Risk of Readmission: Low Risk Care Management Discharge Plan Reason for Hospitalization: Dyspnea, chest pressure r/o [place]. Discharge Plan: aYs will discharge home via private vehicle with her sister. She will follow up with her PCP and plan of care as prescribed. She will not have any new services. Patient/Family Education Needs: Discussion of discharge instructions and plan of care as prescribed. Discussion of [employer] self care needs upon discharge. Cammie sister and son both live at home with Yas and are supports. SDOH Health Related Social Needs: No Data to Display
--- NOTE | 2023-09-07 13:49 | CHAPLAIN ---
Yas was resting in bed when I visited. 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 and [place]. According to Care Management notes, Yas will likely be discharged home to follow up with her PCP.
== END 2023-09-07 14:28 | disposition home or self-care (01) ==
LOC: ER 16:06 → MS 16:16
PROVIDERS: Nurse Practitioner Acute Care; Admitting Provider Family Medicine; Emergency Provider Emergency Medicine; PCP Family Medicine; Visit Provider Family Medicine
DX: R07.89 Other chest pain (principal); I25.10 Atherosclerotic heart disease of native coronary artery without angina pectoris; Z95.1 Presence of aortocoronary bypass graft; K21.9 Gastro-esophageal reflux disease without esophagitis; F31.9 Bipolar disorder, unspecified; E11.9 Type 2 diabetes mellitus without complications; Z79.4 Long term (current) use of insulin; I50.9 Heart failure, unspecified; R42 Dizziness and giddiness; R06.02 Shortness of breath; F17.210 Nicotine dependence, cigarettes, uncomplicated; I25.5 Ischemic cardiomyopathy; E78.5 Hyperlipidemia, unspecified; I34.0 Nonrheumatic mitral (valve) insufficiency; I11.0 Hypertensive heart disease with heart failure; M79.7 Fibromyalgia
CPT/HCPCS: 00123; 36415; 80048; 80053; 86850; 86900; 86901; 93005; 96372; 96374; 96376; 99285; J1650; 71045; 83735; 83880; 84484; 85025; 93010; 99222; 99239; G0378; J1815; J1940

== ENCOUNTER → 2023-09-09 00:51 | Outpatient (CLI) | payer MEDICARE, SELFPAY ==
--- NOTE | 2023-09-09 07:45 | DI.NM_ITS ---
APPROVED REPORT Exam: Pharmacologic Patient Location: Out-Patient Room/Bed: Stress Nurse: Keke Arvizu RN Ordering Provider:ANIYA TERRELL, Contact Number: BMI: 34.00 Baseline Rhythm: Sinus Rhythm Indications: Chest pain, Medical History Medical History: HTN, diabetes, sleep apnea, fibromyalgia, GERD, VELASQUEZ, cardiac volume overload, bipola r disorder, CHF, ischemic cardiomyopathy, coronary atherosclerosis, HLD, accelarating angina, mitral valve insufficiency, tobacco abuse Cardiac Medications: Alprazolam, aspirin, celecobix, citalopram, clopidogrel, novolog, tresiba, lamot rigine, magnesium lactate, metoprolol succinate, nitro PRN, patoprazole, rosuvastatin, spironolactone , torsemide Allergies: Ezetimibe, ibuprofen, simvastatin, pravastatin, ozempic, hydrocodone Cardiac Risk Factors: Family hx, HTN, HLD, CVD, current smoker Previous Cardiac Procedures: CABG (2016) Exercise History: Sedentary Physical Disabilities: Reports severe VELASQUEZ Lung Sounds: Clear to auscultation Heart Sounds: Regular Stress Test Details Test: Pharmacologic stress testing performed using 0.4 mg of regadenoson per 5 mL given IV over 10 s econds. Reason for pharmacologic stress test: Reports inability to use treadmill r/t severe VELASQUEZ. Nuclear Acquisition: Rest Tc-99m/Stress Tc-99m 1 day Rest Isotope: Tc-99m Sestamibi. Dose: 10.0 Date: 09/09/2023 Injection Time: 1200 Stress Isotope: Tc-99m Sestamibi. Dose: 31.0 Date: 09/09/2023 Injection Time: 1416 HR Resting HR Supine: 62 bpm Max Heart Rate (APMHR): 154.405264 bpm Target HR (85% APMHR): 130.440117 bpm Max HR Achieved: 76 bpm % of APMHR: 49.35 Recovery HR: 71 bpm BP Resting BP Supine: 142/68 mmHg Resting BP Standin/62 mmHg Max BP: 142/68 mmHg Recovery BP: 134/68 mmHg ECG Resting ECG: Sinus Rhythm Ectopy: None Stress ECG: Sinus Rhythm ST Change: Nondiagnostic low heart rate Arrhythmia: None Recovery ECG: Sinus Rhythm Recovery ST Change: Nondiagnostic low heart rate Recovery Arrhythmia: None Clinical Stress Symptoms: Mild SOB Angina Score: None Rate Pressure Product: 84908 Stress ECG Conclusion 1. Resting electrocardiogram showed right axis deviation, poor R wave progression 2. Patient underwent testing using pharmacologic stress with regadenoson 3. Peak heart rate achieved was 49% of predicted for age 4. The electrocardiographic portion of the test was nondiagnostic 5. See MPI report Stress Test Summary STAGE HR BP SpO2 Symptoms NOTES Supine 62 132/68 1 min post Lexiscan injection 75 142/68 Mild SOB 3 min post Lexiscan injection 72 142/62 6 min post Lexiscan injection 71 134/68 96 All symptoms resolved MPI Conclusion Myocardial perfusion is abnormal. There is a fixed apical defect consistent with infarct. There is no ischemia Ejection fraction is 40% with septal and apical wall motion abnormalities Radiologist Interpretation Radiologist Interpretation by: Nitin Malave MD Interpretation Date/Time: 09/10/2023 17:05:40
[2023-09-09] MEDS: Regadenoson 0.4 MG/5 ML SYR IVP (14:09)
== END ==
PROVIDERS: PCP Family Medicine; Visit Provider Nurse Practitioner Acute Care
DX: R07.9 Chest pain, unspecified (principal)
CPT/HCPCS: 78452; 93016; 93018; 93017; J2785

== ENCOUNTER 2023-09-20 14:05 | Outpatient (REF) | payer MEDICARE, SELFPAY ==
[2023-09-20 21:20] LABS: HCT 29.4 % (36.0-46.0); HGB 9.4 g/dL (11.2-15.7); MCH 30.5 pg (27.0-33.0); MCV 96 fL (80-95); MPV 9.9 fL (8.0-11.0); Platelet Count 329 10^3/uL (130-400); RBC 3.08 10^6/uL (3.93-5.22); RDW 15.1 % (11.7-14.6); RDW-SD 52.6 fL; WBC 8.73 10^3/uL (4.4-10.8)
[2023-09-20 21:49] LABS: Iron 37 ug/dL (50-170); Total Iron Binding Capacity 390 ug/dL (250-450); Transferrin Sat 9 % (15-50)
[2023-09-20 22:05] LABS: ALT 22 U/L (14-59); AST 23 U/L (15-37); Albumin 3.4 g/dL (3.4-5.0); Alkaline Phosphatase 109 U/L (46-116); Anion Gap 10.3 mmol/L (3-11); BUN 27 mg/dL (7-18); Bilirubin, Total 0.5 mg/dL (0.2-1.0); CO2 27.7 mmol/L (21.0-32.0); Chloride 102 mmol/L (98-107); Estimated GFR 62.13 (mL/min/1.73m2); Ferritin 84 ng/mL (8-252); Folate > 20.0 ng/mL (8.6-20.0); Glucose 97 mg/dL (74-106); Potassium 4.3 mmol/L (3.5-5.1); Sodium 140 mmol/L (136-145); Total Protein 7.4 g/dL (6.4-8.2); Vitamin B12 602 pg/mL (193-986)
== END 2023-09-20 14:06 | disposition home or self-care (01) ==
LOC: NCHCN 14:05
PROVIDERS: PCP Family Medicine; Visit Provider Family Medicine
DX: D64.9 Anemia, unspecified (principal); E11.9 Type 2 diabetes mellitus without complications; K21.9 Gastro-esophageal reflux disease without esophagitis; Z79.899 Other long term (current) drug therapy
CPT/HCPCS: 80053; 85027; 82607; 82728; 82746; 83540; 83550

== ENCOUNTER 2023-10-09 16:44 | Emergency (ER) | payer MEDICARE, SELFPAY ==
[2023-10-09] VITALS (10 sets, daily range): BP systolic 101–135; BP diastolic 39–95; PULSE 63–76; RESP 18; TEMP 36; O2SAT 91–96
--- NOTE | 2023-10-09 17:15 | DI.CT_ITS ---
Exam(s) CT ABDOMEN PELVIS W EXAM: CT ABDOMEN PELVIS W CLINICAL HISTORY: L lower quad abd pain constipation, blood in stool. TECHNIQUE: Imaging Protocol: Axial computed tomography images with coronal and sagittal reformatted images were created and reviewed CONTRAST MATERIAL: Intravenous: Omnipaque 350 Contrast volume:100 ml Oral: no COMPARISON: CT CT CHEST PE ABD PELVIS W from 05/10/2023 FINDINGS: ABDOMEN and PELVIS: Lung Bases: No acute findings. Heart is enlarged. Liver:Enlarged. Mildly nodular contour could indicate cirrhosis. Hepatic steatosis. No suspicious mass. Gallbladder and biliary tract: No radiodense calculus. No biliary dilation. Pancreas: Normal density. No abnormal calcifications or inflammatory process. No evidence of mass. Spleen: Normal. Kidneys: Normal size, contour and axis. No radiodense stones. No obstructive uropathy. No suspicious masses seen. Adrenal glands: No masses seen. Vasculature: Abdominal aorta non-dilated. Soft tissues: Unremarkable. Bladder: No gross wall thickening. No calculi.No focal mass. Bowel: Large quantity of stool. No obstruction. Mild wall thickening of the distal sigmoid. No di verticula are visible. The findings could represent focal colitis. No visible mass. Appendix not i dentified. Peritoneal cavity: Trace fluid in low pelvis. No focal collection. Mild stranding in the mesentery surrounding the distal sigmoid. Bones: Unremarkable for age. Reproductive organs: Status post hysterectomy. Lymph nodes: Mildly enlarged periportal lymph nodes. IMPRESSION:: Wall thickening of the distal sigmoid which could indicate focal colitis. Large quanti ty of stool consistent with constipation. RADIATION DOSE DELIVERED: Total DLP DATA REPOSITORY: All CT scans at this facility are submitted to the National Radiology Data Registry (NRDR) Dose Index Registry (DIR) with the [employer] (A[employer]). RADIATION OPTIMIZATION: All CT scans at this facility use at least one of these dose optimization te chniques: automated exposure control; mA and/or kV adjustment per patient size (includes targeted exa ms where dose is matched to clinical indication); or iterative reconstruction.
--- NOTE | 2023-10-09 17:24 | ED.GENADUL_ITS ---
Discharge Plan Disposition Patient Disposition: Home Condition: Stable Discharge Details Chief Complaint: GI Bleed Clinical Impression: Constipation Primary Care Provider: Wily Starks ED Provider: Gui Alejandro Home Meds and New Rx's Prescriptions: No Action magnesium L-lactate 84 mg tablet extended release 84 mg PO DAILY pantoprazole 40 mg tablet,delayed release (DR/EC) 40 mg PO HS aspirin [Adult Low Dose Aspirin] 81 MG tablet,delayed release (DR/EC) 81 mg PO HS Qty: 30 insulin aspart U-100 [Novolog FlexPen U-100 Insulin] 100 unit/mL (3 mL) insulin pen 7 unit SUBCUT QAM lamotrigine [Lamictal] 100 MG tablet 100 mg PO BID Patient Comments: Total 125 mg po bid nitroglycerin [Nitrostat] 0.4 MG tablet, sublingual 0.4 mg Sublingual Q5 MIN PRN X3 PRN (Reason: Chest Pain) Qty: 15 0RF cholecalciferol (vitamin D3) 25 mcg (1,000 unit) Capsule 1,000 unit PO DAILY lamotrigine 25 mg tablet 25 mg PO BID Patient Comments: Total 125 mg po bid citalopram [Celexa] 40 mg tablet 40 mg PO DAILY meloxicam 7.5 mg tablet 7.5 mg PO DAILY Patient Comments: Pt has on hand but has never taken spironolactone 25 mg tablet 12.5 mg PO HS Patient Comments: Take 1/2 tablet by mouth once a day insulin degludec [Tresiba FlexTouch U-100] 100 unit/mL (3 mL) insulin pen 45 unit SUBCUT DAILY Patient Comments: INJECT 45 UNITS UNDER THE SKIN ONCE A DAY IN THE MORNING Rx Instructions: 45 minutes after Novolog clopidogrel 75 mg tablet 75 mg PO HS Patient Comments: TAKE 1 TABLET EVERY DAY isosorbide mononitrate 30 mg Tablet Extended Release 24 Hr 30 mg PO HS isosorbide mononitrate 30 mg Tablet Extended Release 24 Hr 30 mg PO HS Qty: 30 0RF rosuvastatin [Crestor] 40 MG tablet 40 mg PO QPM multivitamin [Daily Multi-Vitamin] 1 EACH tablet 1 tab PO DAILY vitamin B complex [B-Complex] 1 EACH tablet 1 tab PO DAILY alprazolam 0.5 mg Tablet 0.5 mg PO DAILY PRN (Reason: anxiety) Rx Instructions: Max 2 times per week prn for anxiety insulin glargine [Lantus U-100 Insulin] 100 unit/mL solution 48 unit subcut QAM Hold Instructions: Resume on 09/07/23. As per PCP Patient Comments: not taking naloxone [Narcan] 4 mg/actuation [place],Non-Aerosol 4 mg intranasal PRN PRN metoprolol succinate 50 mg tablet extended release 24 hr 75 mg PO HS Patient Comments: TAKE 1 AND 1/2 TABLETS BY MOUTH DAILY torsemide 20 mg tablet See Rx Instructions .ROUTE .COMPLEX Rx Instructions: Take 2 tabs po qam and 1 tab in midafternoon; ondansetron 4 mg tablet,disintegrating 8 mg PO TID PRN Patient Comments: DISSOLVE TWO TABLETS ON THE TONGUE THREE TIMES A DAY NEEDED FOR 10 DAYS Discharge Instructions Instructions: Constipation (ED) Additional Instructions: Please follow-up with your primary care physician and GI referral. Please return to the emergency department for any worsening symptoms HPI General Date/Time Provider Initiated Documentation: 10/09/23 16:47 . HPI Narrative: 68-year-old female history of diabetes presents brought in by family for evalu ation of constipation for the last 5 days, associate with left lower abdominal discomfort. Has been using stool softeners and enemas without effect. Patient does feel nauseous. Related Data Home Medications Medication Instructions Recorded Confirmed lamotrigine 100 mg tablet 100 mg PO BID 04/08/14 10/09/23 (Lamictal) nitroglycerin 0.4 mg sublingual 0.4 mg sublingual Q5 MIN PRN X3 07/01/15 10/09/23 tablet (Nitrostat) PRN Chest Pain #15 tabs aspirin 81 mg tablet,delayed 81 mg PO HS #30 tab-caps 05/29/16 10/09/23 release (Adult Low Dose Aspirin) rosuvastatin 40 mg tablet (Crestor) 40 mg PO QPM 01/03/18 10/09/23 multivitamin (Daily Multi-Vitamin 1 tab PO DAILY 01/04/18 10/09/23 tablet) vitamin B complex (B-Complex 1 tab PO DAILY 01/04/18 10/09/23 tablet) alprazolam 0.5 mg tablet 0.5 mg PO DAILY PRN anxiety 11/05/18 10/09/23 naloxone 4 mg/actuation nasal 4 mg intranasal PRN PRN 11/21/18 10/09/23 spray (Narcan) magnesium L-lactate 84 mg 84 mg PO DAILY 12/23/18 10/09/23 tablet,extended release pantoprazole 40 mg tablet,delayed 40 mg PO HS 04/07/19 10/09/23 release insulin glargine 100 unit/mL 48 unit subcut QAM 10/06/19 10/09/23 subcutaneous solution (Lantus U-100 Insulin) cholecalciferol (vitamin D3) 25 1,000 unit PO DAILY 09/23/20 10/09/23 mcg (1,000 unit) capsule metoprolol succinate 50 mg 75 mg PO HS 12/27/20 10/09/23 tablet,extended release 24 hr torsemide 20 mg tablet See Rx Instructions .Route .COMPLEX 08/23/22 10/09/23 insulin aspart U-100 100 unit/mL 7 unit subcut QAM 08/25/22 10/09/23 (3 mL) subcutaneous pen (Novolog FlexPen U-100 Insulin aspart) citalopram 40 mg tablet (Celexa) 40 mg PO DAILY 09/06/23 10/09/23 clopidogrel 75 mg tablet 75 mg PO HS 09/06/23 10/09/23 insulin degludec 100 unit/mL (3 45 unit subcut DAILY 09/06/23 10/09/23 mL) subcutaneous pen (Tresiba FlexTouch U-100 insulin) isosorbide mononitrate 30 mg 30 mg PO HS 09/06/23 10/09/23 tablet,extended release 24 hr lamotrigine 25 mg tablet 25 mg PO BID 09/06/23 10/09/23 meloxicam 7.5 mg tablet 7.5 mg PO DAILY 09/06/23 10/09/23 spironolactone 25 mg tablet 12.5 mg PO HS 09/06/23 10/09/23 isosorbide mononitrate 30 mg 30 mg PO HS #30 tabs 09/07/23 10/09/23 tablet,extended release 24 hr ondansetron 4 mg disintegrating 8 mg PO TID PRN 10/09/23 10/09/23 tablet Previous Rx's Medication Instructions Recorded nitroglycerin 0.4 mg sublingual 0.4 mg sublingual Q5 MIN PRN X3 02/15/16 tablet (Nitrostat) PRN Chest Pain #15 tabs isosorbide mononitrate 30 mg 30 mg PO HS #30 tabs 09/07/23 tablet,extended release 24 hr Allergies Allergy/AdvReac Type Severity Reaction Status Date / Time ezetimibe [From Vytorin] Allergy Unknown Other (See Verified 10/09/23 18:44 Comment) hydrocodone Allergy Unknown Other (See Verified 10/09/23 18:44 Comment) pravastatin Allergy Unknown Other (See Verified 10/09/23 18:44 Comment) simvastatin [From Vytorin] Allergy Unknown Other (See Verified 10/09/23 18:44 Comment) ibuprofen AdvReac Severe severe Verified 10/09/23 18:44 vomiting semaglutide [From Ozempic] AdvReac Severe Other (See Verified 10/09/23 18:44 Comment) General Stated Complaint: GI Bleed CHRIS: 3 Review of Systems Narrative: Review of Systems Constitutional: negative Eyes: negative ENT: negative Cardiovascular: negative Respiratory: negative Gastrointestinal: Nausea abdominal pain constipation : negative Musculoskeletal: negative Skin: negative Neurologic: negative Psych: negative Exam Narrative Exam Narrative: Physical Examination General: alert, awake, cooperative, resting comfortably, no acute distress HEENT: normocephalic, atraumatic; PERRL, EOM intact, conjunctiva normal; no nasal discharge; moist mucous membranes, oral and pharyngeal mucosa normal, tolerating secretions Neck: supple, trachea midline; full ROM Chest: normal to inspection Respiratory: normal respiratory effort, speaking in full sentences, clear to auscultation, no wheezing, rales or rhonchi Cardiac: regular rate, regular rhythm, S1S2 intact, no murmurs rubs or gallops GI: abdomen soft, non-tender, non-distended; no palpable mass or hepatosplenomegaly; empty rectal vault Skin: Appears pale Neuro: AAOx3, normal speech, moving all extremities Psych: Appropriate mood and affect Course Vital Signs Vital signs: Vital Signs Temperature 36 C L 10/09/23 16:54 Pulse 76 10/09/23 16:54 Respiratory Rate 18 10/09/23 16:54 Blood Pressure 135/75 10/09/23 16:54 Pulse Oximetry 96 10/09/23 16:54 Temperature 36 C L 10/09/23 16:54 Temperature Source Temporal Artery Scan 10/09/23 16:54 Pulse 76 05/25/24 16:54 Respiratory Rate 18 10/09/23 16:54 Blood Pressure 135/75 10/09/23 16:54 Blood Pressure Position Sitting 10/09/23 16:54 Pulse Oximetry 96 10/09/23 16:54 Oxygen Delivery Method Room Air 10/09/23 16:54 Oxygen Flow Rate 0 10/09/23 16:54 Medical Decision Making 68-year-old female presents with 5 days of constipation abdominal pain nausea, left lower abdominal discomfort over the last day, has been using stool softener and enemas without success, passed some blood-tinged mucus material today. Abdomen soft nontender nondistended hemodynamically stable afebrile nontoxic however patient does appear pale. Empty rectal vault on rectal examination and no mucoid discharge or bleeding no palpable mass. Must consider bowel obstruction versus malignancy versus diverticulitis versus colitis versus functional constipation. Screening labs CT abdomen pelvis fluids close reassessment. 19: 27 resting comfortably no acute distress coloration is greatly improved. CT evidence of constipation mild mucosal thickening in sigmoid colon. Patient nonperitoneal afebrile nontoxic. Will dose magnesium citrate and Zofran. Patient will follow closely with GI referral. Home care instructions and return precautions given Quality:SDOH Health Related Social Needs: No Data to Display PFSH All Active Problems (Updated 10/09/23 @ 19:28 by Gui Alejandro MD) Constipation (Acute) Injury of left little finger (Acute 07/13/22) Fracture of third metatarsal bone of left foot (Acute 07/13/22) Bipolar 1 disorder (Acute) Chest pain, rule out acute myocardial infarction (Acute) Hx of CABG (Chronic) CHF (congestive heart failure) (Chronic) Diabetes mellitus type 2, controlled (Acute) Coronary atherosclerosis (Acute) Accelerating angina (Acute) Hyperlipidemia (Acute) Sinusitis (Acute) Fatigue (Acute) Mitral insufficiency (Acute) Medical History Hypertension GERD (gastroesophageal reflux disease) Fibromyalgia Diabetes Sleep apnea Surgical History Status post carpal tunnel release of both wrists S/P mitral valve clip implantation Hx of CABG 2015 Social History Smoking/Tobacco Use Status: Current every day Tobacco Type: cigarettes Quit status: considering quitting Smoking risk assessment performed?: Yes Alcohol Intake: current Alcohol Intake frequency: a few times a week Alcohol type: wine Drug use: Never Substance use type: does not use Housing: house What type of physical activity do you participate in: other Details: cardiac rehab Do you feel safe at home: Yes Do you feel safe in your relationship?: Yes History History Para 4 Hx # Term Pregnancies Multiple births Hx # Pregnancies Ectopic pregnancies AB induced Hx Number of Living Children AB spontaneous
[2023-10-09] MEDS: Normal Saline 1,000 ML 1000 ML IV (17:39)
[2023-10-09 17:42] LABS: Abs Immature Grans 0.03 10^3/uL (0.0-0.06); Absolute Basophil Count 0.03 10^3/uL (0.0-0.2); Absolute Eosinophil Count 0.06 10^3/uL (0.0-0.7); Absolute Lymphocyte Count 1.77 10^3/uL (1.2-3.4); Absolute Neutrophil Count 6.49 10^3/uL (1.2-6.7); Basophils % 0.3 %; Eosinophils % 0.6 %; HCT 29.5 % (36.0-46.0); HGB 9.1 g/dL (11.2-15.7); Immature Grans % 0.3 %; Lymphocytes % 18.5 %; MCHC 30.8 % (32.0-36.0); MCV 94 fL (80-95); MPV 9.5 fL (8.0-11.0); Monocytes % 12.5 %; Neutrophils % 67.8 %; Nucleated RBC 0.2 % (0.0-0.3); Platelet Count 288 10^3/uL (130-400); RBC 3.14 10^6/uL (3.93-5.22); RDW 15.8 % (11.7-14.6); WBC 9.58 10^3/uL (4.4-10.8)
[2023-10-09 17:55] LABS: INR 1.3 (0.9-1.1); PTT Activated 27.4 sec (23.6-32.8); Prothrombin Time 13.1 sec (9.1-11.1)
[2023-10-09 17:57] LABS: ALT 25 U/L (14-59); AST 20 U/L (15-37); Albumin 3.2 g/dL (3.4-5.0); Alkaline Phosphatase 160 U/L (46-116); Anion Gap 10.3 mmol/L (3-11); BUN 29 mg/dL (7-18); Bilirubin, Total 0.8 mg/dL (0.2-1.0); CO2 28.7 mmol/L (21.0-32.0); CREATININE 1.2 mg/dL (0.55-1.02); Calcium 8.9 mg/dL (8.5-10.1); Chloride 99 mmol/L (98-107); Estimated GFR 49.92 (mL/min/1.73m2); Glucose 82 mg/dL (74-106); Potassium 3.9 mmol/L (3.5-5.1); Sodium 138 mmol/L (136-145); Total Protein 8.1 g/dL (6.4-8.2)
[2023-10-09] MEDS: Omnipaque 350 MG/ML 100 ML BTL IJ (18:11)
[2023-10-09] MEDS: Normal Saline - Diluent 50 ML VIAL IJ (18:11)
[2023-10-09] MEDS: DEXTROSE 5%-0.9% SALINE 1,000 ML 150 ML IV (19:05)
--- NOTE | 2023-10-09 19:05 | DI.VRAD_ITS ---
PROCEDURE INFORMATION: Exam: CT Abdomen And Pelvis With Contrast Exam date and time: 10/09/2023 6:07 PM Age: 68 years old Clinical indication: Other: L lower quad abd pain constipation, blood in stool TECHNIQUE: Imaging protocol: Computed tomography of the abdomen and pelvis with contrast. Contrast material: 350; Contrast volume: 100 ml; Contrast route: INTRAVENOUS (IV); COMPARISON: CT CHEST PE ABD PELVIS W 05/10/2023 8:45 AM FINDINGS: Heart: Mitral annular calcification is seen. Liver: The liver is nodular in contour, suggesting cirrhosis. There is hepatomegaly and fatty infiltration of the liver. There are no focal liver lesions present. Gallbladder and bile ducts: Normal. No calcified stones. No ductal dilation. Pancreas: Normal. No ductal dilation. Spleen: Normal. No splenomegaly. Adrenal glands: Normal. No mass. Kidneys and ureters: Normal. No hydronephrosis. Stomach and bowel: Constipation. The stomach is normal. No small bowel obstruction. Mild mucosal thickening in the sigmoid colon, question colitis. Appendix: The appendix is not identified with certainty, but there are no secondary C.T. findings of appendicitis. Intraperitoneal space: There is trace free fluid in the pelvis. No free air or abscess. Vasculature: Unremarkable. No abdominal aortic aneurysm. Lymph nodes: Periportal lymphadenopathy. Urinary bladder: Unremarkable as visualized. Reproductive: Unremarkable as visualized. Bones/joints: Degenerative changes of the spine without acute osseous abnormality. Soft tissues: There is a small fat-containing umbilical hernia. IMPRESSION: Constipation. Possible colitis of the sigmoid colon. Findings suggesting underlying liver disease/cirrhosis, with diffuse fatty infiltration. Dictated and Authenticated by: Mary Ellen Ku MD. Ordering:YUDITH Messer MD
[2023-10-09] MEDS: Ondansetron 4 MG/2 ML VIAL IVP (19:30)
--- NOTE | 2023-10-09 19:33 | NUR.NOTE ---
Pt placed on care management referral list to be seen by [facility] for constipation. To be seen within 1-2 weeks.
[2023-10-09] MEDS: Magnesium Citrate 300 ML BTL 150 ML PO (19:46)
[2023-10-09] MEDS: Ondansetron O.D.T. 4 MG TABEF, 3 TABS/BTL PO (19:47)
== END 2023-10-09 19:47 | disposition home or self-care (01) ==
PROVIDERS: Emergency Provider Emergency Medicine; PCP Family Medicine
DX: K59.00 Constipation, unspecified (principal); R10.30 Lower abdominal pain, unspecified; E11.9 Type 2 diabetes mellitus without complications
CPT/HCPCS: 36415; 36416; 80053; 82962; 86850; 86900; 86901; 96361; 96374; 99285; 74177; 85025; 85610; 85730; 99283; J2405; J3490; J7042

== ENCOUNTER 2023-10-21 14:29 | Observation (INO) | payer MEDICARE, SELFPAY ==
[2023-10-21] VITALS (36 sets, daily range): BP systolic 110–162; BP diastolic 45–110; PULSE 66–82; RESP 13–27; TEMP 35.1–37.2; O2SAT 94–97
--- NOTE | 2023-10-21 14:15 | RT.EKG_ITS ---
APPROVED REPORT Exam: Resting ECG Reason for Exam: Dizziness Patient Location: E HR:67 bpm ECG Measurements Heart Rate 67 AXIS UT 168 P 21 QRSd 104 QRS 96 QT 460 T 84 QTc 487 Conclusion Sinus rhythm 67 no stemi
--- NOTE | 2023-10-21 15:00 | DI.CT_ITS ---
Exam(s) CT BRAIN NECK CTA EXAM: CT BRAIN NECK CTA CLINICAL HISTORY: broken speech, confusion. TECHNIQUE: Imaging Protocol: Axial CT angiography was performed with multi-slice acquisition and mu lti-planar and/or 3D reconstructions. CONTRAST MATERIAL: Intravenous: Omnipaque 350 Contrast volume:structured data in ml COMPARISON: CT CT ABDOMEN PELVIS W from 10/09/2023 FINDINGS: There is motion artifact on all images. Sternotomy wires noted. CTA Neck W: Aortic arch anatomy: The aortic arch anatomy is conventional and there is no significant stenosis at the origin of the great vessels off of the aortic arch. No intimal flap evident. Anterior circulation: Both common carotid arteries ascend with normal luminal diameters. Left carotid bulb and proximal left ICA are patent without significant stenosis and left IC is patent in the upper neck and skull base. There is mild plaque at the right carotid bulb and proximal right ICA but without significant focal s tenosis and the right ICA is also patent in the upper neck and skull base. Posterior circulation: Both vertebral arteries originate in conventional fashion off of the subclavian arteries and there is no obvious stenosis at the origin of the vertebral arteries. Both vertebral arteries exhibit normal luminal diameters within the foramen transversarium. No evidence of intimal flap nor intraluminal thrombus. No obvious impingement. Both vertebral arteries contribute to the formation of the basilar artery at the skull base. CTA Brain W: Anterior circulation: Both internal carotid arteries are patent in the skull base-carotid canals as well as within the cave rnous sinuses. The supraclinoid aspects of the ICAs are patent. Both A1 segments are patent as are the anterior cer ebral arteries and there is no evidence of aneurysm at the level of the anterior communicating artery . Both middle cerebral arteries are patent with no evidence of significant stenosis nor intraluminal th rombus. There also no aneurysms of these vessels. Posterior circulation: The basilar artery ascends in the midline. Distally it gives off patent bilateral superior cerebella r arteries. Above this level the basilar artery terminates as patent bilateral posterior cerebral arteries. There is no evidence of aneurysm at the tip of the basilar artery nor elsewhere in the [id number] is. CT BRAIN: There is no evidence of intracranial hemorrhage, mass effect, or shift of midline structures. There are no extra-axial fluid collections. Ventricles are not enlarged or shifted. There are no ring enh ancing lesions in the brain and no abnormal meningeal enhancement. There is some mild periventricular hypodensity consistent with chronic small vessel disease. No obvi ous acute infarct evident, realized limitations of this study. IMPRESSION: 1. Patent carotid arteries in the neck. No hemodynamically significant stenosis. 2. Patent vertebral arteries. 3. Patent intracranial arteries. 4. Chronic small-vessel white matter ischemic changes. No obvious acute infarct realized limitations of this study. Recommend follow-up MRI with diffusion imaging. Discussed with ER physician. RADIATION DOSE DELIVERED: 2,022.2mGy.cm Total DLP DATA REPOSITORY: All CT scans at this facility are submitted to the National Radiology Data Registry (NRDR) Dose Index Registry (DIR) with the [employer] ([employer]). RADIATION OPTIMIZATION: All CT scans at this facility use at least one of these dose optimization te chniques: automated exposure control; mA and/or kV adjustment per patient size (includes targeted exa ms where dose is matched to clinical indication); or iterative reconstruction.
[2023-10-21 15:12] LABS: Abs Immature Grans 0.06 10^3/uL (0.0-0.06); Absolute Basophil Count 0.06 10^3/uL (0.0-0.2); Absolute Eosinophil Count 0.01 10^3/uL (0.0-0.7); Absolute Lymphocyte Count 1.73 10^3/uL (1.2-3.4); Absolute Monocyte Count 1.05 10^3/uL (0.1-0.8); Absolute Neutrophil Count 5.83 10^3/uL (1.2-6.7); Basophils % 0.7 %; Eosinophils % 0.1 %; HCT 28.2 % (36.0-46.0); HGB 8.6 g/dL (11.2-15.7); Immature Grans % 0.7 %; Lymphocytes % 19.8 %; MCHC 30.5 % (32.0-36.0); MCV 88 fL (80-95); MPV 10.4 fL (8.0-11.0); Neutrophils % 66.7 %; Nucleated RBC 0.2 % (0.0-0.3); Platelet Count 333 10^3/uL (130-400); RBC 3.19 10^6/uL (3.93-5.22); RDW 16.6 % (11.7-14.6); RDW-SD 53.4 fL; WBC 8.74 10^3/uL (4.4-10.8)
--- NOTE | 2023-10-21 15:18 | ED.GENADUL_ITS ---
Discharge Plan Discharge Details Chief Complaint: Dizzy/Sync Primary Care Provider: Wily Starks ED Provider: Bob Morris Home Meds and New Rx's Prescriptions: No Action magnesium L-lactate 84 mg tablet extended release 84 mg PO DAILY pantoprazole 40 mg tablet,delayed release (DR/EC) 40 mg PO HS aspirin [Adult Low Dose Aspirin] 81 MG tablet,delayed release (DR/EC) 81 mg PO HS Qty: 30 insulin aspart U-100 [Novolog FlexPen U-100 Insulin] 100 unit/mL (3 mL) insulin pen 7 unit SUBCUT QAM lamotrigine [Lamictal] 100 MG tablet 100 mg PO BID Patient Comments: Total 125 mg po bid nitroglycerin [Nitrostat] 0.4 MG tablet, sublingual 0.4 mg Sublingual Q5 MIN PRN X3 PRN (Reason: Chest Pain) Qty: 15 0RF cholecalciferol (vitamin D3) 25 mcg (1,000 unit) Capsule 1,000 unit PO DAILY lamotrigine 25 mg tablet 25 mg PO BID Patient Comments: Total 125 mg po bid spironolactone 25 mg tablet 12.5 mg PO HS Patient Comments: Take 1/2 tablet by mouth once a day insulin degludec [Tresiba FlexTouch U-100] 100 unit/mL (3 mL) insulin pen 45 unit SUBCUT DAILY Patient Comments: INJECT 45 UNITS UNDER THE SKIN ONCE A DAY IN THE MORNING Rx Instructions: 45 minutes after Novolog clopidogrel 75 mg tablet 75 mg PO HS Patient Comments: TAKE 1 TABLET EVERY DAY isosorbide mononitrate 30 mg Tablet Extended Release 24 Hr 30 mg PO HS Qty: 30 0RF rosuvastatin [Crestor] 40 MG tablet 40 mg PO QPM multivitamin [Daily Multi-Vitamin] 1 EACH tablet 1 tab PO DAILY vitamin B complex [B-Complex] 1 EACH tablet 1 tab PO DAILY alprazolam 0.5 mg Tablet 0.5 mg PO DAILY PRN (Reason: anxiety) Rx Instructions: Max 2 times per week prn for anxiety naloxone [Narcan] 4 mg/actuation [place],Non-Aerosol 4 mg intranasal PRN PRN metoprolol succinate 50 mg tablet extended release 24 hr 75 mg PO HS Patient Comments: TAKE 1 AND 1/2 TABLETS BY MOUTH DAILY torsemide 20 mg tablet See Rx Instructions .ROUTE .COMPLEX Rx Instructions: Take 2 tabs po qam and 1 tab in midafternoon; sucralfate 1 gram tablet 1 g PO PRN Patient Comments: TAKE ONE TABLET BY MOUTH FOUR TIMES A DAY NEEDED celecoxib 100 mg capsule 100 mg PO BID Patient Comments: TAKE ONE CAPSULE BY MOUTH EVERY 12 HOURS NEEDED HPI General Mode of arrival: EMS . Date/Time Provider Initiated Documentation: 10/21/23 14:39 . Limitations to Documentation: no limitations . Information obtained by: patient . HPI Narrative: 68-year-old female presents with altered mental status and speech disturbance. History and review of systems is limited secondary to altered mental status. History obtained from patient's sister and son who are here with her. They note concern for worsening confusion over the past week. Much more confused yesterday. They also note new speech disturbance that was first noticed this morning at 8 AM. Last night around 930 before she went to bed speech was noted to be normal. Patient denies associated headache. Related Data Home Medications Medication Instructions Recorded Confirmed lamotrigine 100 mg tablet 100 mg PO BID 04/08/14 10/21/23 (Lamictal) nitroglycerin 0.4 mg sublingual 0.4 mg sublingual Q5 MIN PRN X3 07/01/15 10/21/23 tablet (Nitrostat) PRN Chest Pain #15 tabs aspirin 81 mg tablet,delayed 81 mg PO HS #30 tab-caps 05/29/16 10/21/23 release (Adult Low Dose Aspirin) rosuvastatin 40 mg tablet (Crestor) 40 mg PO QPM 01/03/18 10/21/23 multivitamin (Daily Multi-Vitamin 1 tab PO DAILY 01/04/18 10/21/23 tablet) vitamin B complex (B-Complex 1 tab PO DAILY 01/04/18 10/21/23 tablet) alprazolam 0.5 mg tablet 0.5 mg PO DAILY PRN anxiety 11/05/18 10/21/23 naloxone 4 mg/actuation nasal 4 mg intranasal PRN PRN 11/21/18 10/21/23 spray (Narcan) magnesium L-lactate 84 mg 84 mg PO DAILY 12/23/18 10/21/23 tablet,extended release pantoprazole 40 mg tablet,delayed 40 mg PO HS 04/07/19 10/21/23 release cholecalciferol (vitamin D3) 25 1,000 unit PO DAILY 09/23/20 10/21/23 mcg (1,000 unit) capsule metoprolol succinate 50 mg 75 mg PO HS 12/27/20 10/21/23 tablet,extended release 24 hr torsemide 20 mg tablet See Rx Instructions .Route .COMPLEX 08/23/22 10/21/23 insulin aspart U-100 100 unit/mL 7 unit subcut QAM 08/25/22 10/21/23 (3 mL) subcutaneous pen (Novolog FlexPen U-100 Insulin aspart) clopidogrel 75 mg tablet 75 mg PO HS 09/06/23 10/21/23 insulin degludec 100 unit/mL (3 45 unit subcut DAILY 09/06/23 10/21/23 mL) subcutaneous pen (Tresiba FlexTouch U-100 insulin) lamotrigine 25 mg tablet 25 mg PO BID 09/06/23 10/21/23 spironolactone 25 mg tablet 12.5 mg PO HS 09/06/23 10/21/23 isosorbide mononitrate 30 mg 30 mg PO HS #30 tabs 09/07/23 10/21/23 tablet,extended release 24 hr celecoxib 100 mg capsule 100 mg PO BID 10/21/23 10/21/23 sucralfate 1 gram tablet 1 g PO PRN 10/21/23 10/21/23 Previous Rx's Medication Instructions Recorded nitroglycerin 0.4 mg sublingual 0.4 mg sublingual Q5 MIN PRN X3 07/01/15 tablet (Nitrostat) PRN Chest Pain #15 tabs isosorbide mononitrate 30 mg 30 mg PO HS #30 tabs 09/07/23 tablet,extended release 24 hr Allergies Allergy/AdvReac Type Severity Reaction Status Date / Time ezetimibe [From Vytorin] Allergy Unknown Other (See Verified 10/09/23 18:44 Comment) hydrocodone Allergy Unknown Other (See Verified 10/09/23 18:44 Comment) pravastatin Allergy Unknown Other (See Verified 10/09/23 18:44 Comment) simvastatin [From Vytorin] Allergy Unknown Other (See Verified 10/09/23 18:44 Comment) ibuprofen AdvReac Severe severe Verified 10/09/23 18:44 vomiting semaglutide [From Ozempic] AdvReac Severe Other (See Verified 10/09/23 18:44 Comment) General Stated Complaint: Dizzy/Sync CHRIS: 3 Review of Systems Unobtainable due to mental status Constitutional Constitutional: Denies fever(s) and Denies headache(s) ENT Ears, Nose, Mouth, and Throat: Denies headache(s) Neurologic Neurologic: Denies headache(s) Exam Const General: cooperative and no acute distress Orientation: confused Limitations: altered mental status HENWA Head: normocephalic and atraumatic Mouth: moist mucous membranes Eyes Conjunctivae: normal conjunctivae Sclera: normal sclerae Neck Neck: trachea midline Resp Auscultation: clear to auscultation bilaterally, no rales, no rhonchi and no wheezes Cardio Rate: regular rate and not tachycardic Rhythm: regular rhythm GI Palpation: soft, not firm, no guarding, no masses, not rigid and nontender Skin General skin exam: no rashes or lesions noted Neuro General: patient awake, oriented Patient Orientation: Person and Confused and tone normal Cognition: abnormal cognition Speech: expressive aphasia Other: intermittent tremor all ext Broken and at times incoherent speech 5/5 strenght all ext Exam limited secondary to altered mental status Extrem General: no edema Course Vital Signs Vital signs: Vital Signs Temperature 37.2 C 10/21/23 14:25 Pulse 68 10/21/23 14:25 Respiratory Rate 17 10/21/23 14:25 Blood Pressure 116/62 10/21/23 14:25 Pulse Oximetry 94 10/21/23 14:25 Temperature 37.2 C 10/21/23 14:25 Temperature Source Oral 10/21/23 14:25 Pulse 68 10/21/23 14:25 Respiratory Rate 17 10/21/23 14:25 Respiratory Effort Normal 10/21/23 15:03 Blood Pressure 116/62 10/21/23 14:25 Blood Pressure Position Supine 10/21/23 14:25 Pulse Oximetry 94 10/21/23 14:25 Oxygen Delivery Method Room Air 10/21/23 14:25 Oxygen Flow Rate 0 10/21/23 14:25 Pain Level 0 10/21/23 14:25 Lab/Test Results Lab/Test Results: Laboratory Tests Range/Units 10/21/23 14:20 WBC (4.4-10.8) 10^3/uL 8.74 RBC (3.93-5.22) 10^6/uL 3.19 L Hgb (11.2-15.7) g/dL 8.6 L Hct (36.0-46.0) % 28.2 L MCV (80-95) fL 88 MCH (27.0-33.0) pg 27.0 MCHC (32.0-36.0) % 30.5 L RDW (11.7-14.6) % 16.6 H Plt Count (130-400) 10^3/uL 333 MPV (8.0-11.0) fL 10.4 Immature Gran % % 0.7 Neutrophils % % 66.7 Lymphocytes % % 19.8 Monocytes % % 12.0 Eosinophils % % 0.1 Basophils % % 0.7 Nucleated RBC % (0.0-0.3) % 0.2 Absolute Neutrophils (1.2-6.7) 10^3/uL 5.83 Absolute Lymphocytes (1.2-3.4) 10^3/uL 1.73 Absolute Monocytes (0.1-0.8) 10^3/uL 1.05 H Absolute Eosinophils (0.0-0.7) 10^3/uL 0.01 Absolute Basophils (0.0-0.2) 10^3/uL 0.06 Medical Decision Making 1525 -- 68-year-old female with multiple medical problems including prior history of CABG, significant coronary artery disease, status post CABG, stent, diabetes, CHF, ischemic cardiomyopathy, hypertension, bipolar disorder here with progressive altered mentation and now broken speech since this morning upon waking. Concern for acute CVA. Consider encephalopathy. Patient has not been using CPAP as prescribed. I will check VBG. Plan for MRI of the brain. 153 --unfortunately there is concern for metallic cardiac foreign body and radiology not able to perform MRI. Plan to proceed with CT head, CTA of the brain and neck. Lab Data Lab results reviewed: Yes I reviewed the patient's lab results. Labs: Laboratory Tests Range/Units 10/21/23 14:20 WBC (4.4-10.8) 10^3/uL 8.74 RBC (3.93-5.22) 10^6/uL 3.19 L Hgb (11.2-15.7) g/dL 8.6 L Hct (36.0-46.0) % 28.2 L MCV (80-95) fL 88 MCH (27.0-33.0) pg 27.0 MCHC (32.0-36.0) % 30.5 L RDW (11.7-14.6) % 16.6 H Plt Count (130-400) 10^3/uL 333 MPV (8.0-11.0) fL 10.4 Immature Gran % % 0.7 Neutrophils % % 66.7 Lymphocytes % % 19.8 Monocytes % % 12.0 Eosinophils % % 0.1 Basophils % % 0.7 Nucleated RBC % (0.0-0.3) % 0.2 Absolute Neutrophils (1.2-6.7) 10^3/uL 5.83 Absolute Lymphocytes (1.2-3.4) 10^3/uL 1.73 Absolute Monocytes (0.1-0.8) 10^3/uL 1.05 H Absolute Eosinophils (0.0-0.7) 10^3/uL 0.01 Absolute Basophils (0.0-0.2) 10^3/uL 0.06 Sodium (136-145) mmol/L 137 Potassium (3.5-5.1) mmol/L 3.8 Chloride (98-107) mmol/L 102 Carbon Dioxide (21.0-32.0) mmol/L 26.3 Anion Gap (3-11) mmol/L 8.7 BUN (7-18) mg/dL 24 H Creatinine (0.55-1.02) mg/dL 1.1 H Est GFR (CKD-EPI 2020) (mL/min/1.73m2) 55.42 Glucose (74-106) mg/dL 140 H Calcium (8.5-10.1) mg/dL 8.6 Magnesium (1.8-2.4) mg/dL 2.0 Total Bilirubin (0.2-1.0) mg/dL 1.1 H AST (15-37) U/L 33 ALT (14-59) U/L 30 Alkaline Phosphatase (46-116) U/L 255 H Troponin I (< or =60) ng/L < 50 Total Protein (6.4-8.2) g/dL 7.8 Albumin (3.4-5.0) g/dL 2.9 L Quality:[facility] Health Related Social Needs: No Data to Display PFSH All Active Problems Constipation (Acute) Injury of left little finger (Acute 07/13/22) Fracture of third metatarsal bone of left foot (Acute 07/13/22) Bipolar 1 disorder (Acute) Chest pain, rule out acute myocardial infarction (Acute) Hx of CABG (Chronic) CHF (congestive heart failure) (Chronic) Diabetes mellitus type 2, controlled (Acute) Coronary atherosclerosis (Acute) Accelerating angina (Acute) Hyperlipidemia (Acute) Sinusitis (Acute) Fatigue (Acute) Mitral insufficiency (Acute) Medical History Tobacco abuse Hypertension GERD (gastroesophageal reflux disease) Fibromyalgia Diabetes Sleep apnea Surgical History Status post carpal tunnel release of both wrists S/P mitral valve clip implantation Hx of CABG 2015 Social History Smoking/Tobacco Use Status: Current every day Tobacco Type: cigarettes Quit status: considering quitting Smoking risk assessment performed?: Yes Alcohol Intake: current Alcohol Intake frequency: a few times a week Alcohol type: wine Drug use: Never Substance use type: does not use Housing: house What type of physical activity do you participate in: other Details: cardiac rehab Do you feel safe at home: Yes Do you feel safe in your relationship?: Yes History History Para 4 Hx # Term Pregnancies Multiple births Hx # Pregnancies Ectopic pregnancies AB induced Hx Number of Living Children AB spontaneous
[2023-10-21 15:25] LABS: ALT 30 U/L (14-59); AST 33 U/L (15-37); Albumin 2.9 g/dL (3.4-5.0); Alkaline Phosphatase 255 U/L (46-116); Anion Gap 8.7 mmol/L (3-11); BUN 24 mg/dL (7-18); Bilirubin, Total 1.1 mg/dL (0.2-1.0); CO2 26.3 mmol/L (21.0-32.0); CREATININE 1.1 mg/dL (0.55-1.02); Calcium 8.6 mg/dL (8.5-10.1); Chloride 102 mmol/L (98-107); Estimated GFR 55.42 (mL/min/1.73m2); Glucose 140 mg/dL (74-106); Potassium 3.8 mmol/L (3.5-5.1); Sodium 137 mmol/L (136-145); Total Protein 7.8 g/dL (6.4-8.2); Troponin I < 50 ng/L (< or =60)
[2023-10-21] MEDS: Normal Saline - Diluent 50 ML VIAL IJ (16:08)
[2023-10-21] MEDS: Omnipaque 350 MG/ML 100 ML BTL IJ (16:09)
[2023-10-21] MEDS: Normal Saline Flush 10 ML SYR IVP (16:10)
[2023-10-21 17:03] LABS: Bilirubin Negative (Negative); Blood Negative (Negative); Clarity Clear (Clear); Glucose Negative (Negative); Ketones Negative (Negative); Leukocyte Esterase Negative (Negative); Nitrite Negative (Negative); Specific Gravity 1.015 (1.005-1.025); Urobilinogen 0.2 mg/dL (Up to 0.2); pH 6.5 (5-8)
--- NOTE | 2023-10-21 17:23 | ED.PROG_ITS ---
Date of service: 10/21/23 Time of Service: 17:24 Medical Decision Making Care of patient accepted from Dr. Morris in signout. She is a 68-year-old female with past medical history of CAD, CHF, diabetes, hypertension, mitral valve regurg status post clip, bipolar disorder presents for evaluation of confusion and speech difficulty. Caregiver at bedside reports that she does not have a formal diagnosis of dementia, but that symptoms have been progressively worsening, over the last few days, they have noted that she has seemed confused and unsteady. This morning she started having speech difficulty. They report that she was saying things that did not make sense, she was speaking, but they could not understand her, her speech was very garbled. And they report that they would speak to her and she would look like she was not understanding them. On my evaluation of the patient, she was laying with her eyes closed and will open them to voice, but seems startled. Her speech is clear, but she seems very confused and is saying random words in response to my questions. I discussed with the radiologist, her CT imaging of her head and neck does not reveal a large vessel occlusion or acute stroke. Her caregiver at bedside does have her MitraClip card which demonstrates the MRI capability and compatibility. At this time, the MRI techs are no longer available, so getting an MRI would not be an option tonight. I reviewed her blood work, no leukocytosis. She has some mild worsened anemia, normal platelet count. Her creatinine is at baseline. Her first troponin is negative. Her urinalysis is without signs of infection. I have added on an alcohol and drug screening levels and thyroid studies. I have ordered a tele neuro consult for further evaluation. Teleneuro notices progressive decline with encephalopathy. They are recommending an MRI of the brain, EEG and infectious workup. At this time I have discussed with the hospitalist, we should be able to get an EEG tomorrow based on the staffing. The patient is stable for admission to this hospital. Medical Records Medical records reviewed: Yes I reviewed the patient's medical records. Lab Data Lab results reviewed: Yes I reviewed the patient's lab results. Quality:[facility] Health Related Social Needs: No Data to Display Sign Out Sign Out Data: Sign Out Comment: Follow-up CT head, CTA brain and neck, UA. Reassess patient for dispo. Last updated by Bob Morris MD at 10/21/23 16:03 Discharge Plan Discharge Details Chief Complaint: Dizzy/Sync Admit Date/Time: 10/21/23 19:27 Admit Provider: Jaret Cabello Attending Provider: Jaret Cabello Primary Care Provider: Wily Starks ED Provider: Mark Hernandez Discharge Data Discharge Date/Time-TO BE ENTERED AT DEPARTURE: 10/21/23 21:11
[2023-10-21 18:12] LABS: TSH (W/Ref FT4) 8.35 uIU/mL (0.36-3.74)
[2023-10-21 18:15] LABS: *AMPHETAMINES SCREEN URINE Negative (Negative); *BARBITURATES SCREEN URINE Negative (Negative); *BENZODIAZEPINES SCREEN URINE Negative (Negative); Cannabinoids THC Positive (Negative); Cocaine Screen,Urine Negative (Negative); METHADONE URINE SCREEN Negative (Negative); OPIATES URINE SCREEN Negative (Negative)
[2023-10-21 18:17] LABS: Tricyclic Antidepressants Negative (Negative)
[2023-10-21 18:17] LABS: ETHANOL BLOOD < 3.0 mg/dL (<10)
[2023-10-21 18:34] LABS: FREE T4 1.17 ng/dL (0.76-1.46)
[2023-10-21] MEDS: Aspirin 325 MG TAB PO (19:02)
--- NOTE | 2023-10-21 19:55 | W.PM.HP.N ---
Date of service: 10/21/23 Time of Service: 19:56 Assessment and Plan Assessment and plan (1) Progressive cognitive dysfunction: Status: Chronic Assessment and plan: 68 yr old who has multiple comorbidities (DM type II on insulin), HFREF, cor pulmonale, PHTN, CAD s/p CABG, severe MR s/p mitral valve clip, Bipolar disorder who has had progressive decline in her cognitive abilities over several months but who was brought to the E.D. d/t acute concerns over speech difficulties, namely nonsensical speech w/ non-sequitur words and statements but otherwise no focal motor or sensory deficits, who had CTA brain that other than showing white matter changes consistent w/ small vessel ischemic changes had no obvious stroke or thrombosis. Patient did not have any obvious seizures although she is on lamictal for her BPD. Tele-neuro consult recommended admission, neuro observation, EEG in the morning and if able to perform, get MRI brain looking for occult strokes, infiltrative disease i.e. cancer or demyelinating process. P.T. consult for assessment of her strength/gait and ambulatory stability and FIVE PIECE EXPANSION MAKER HAND consult will be obtained to evaluate her speech/cognition. She may benefit from psychiatric consult as well. (2) Encephalopathy acute: Status: Acute Assessment and plan: she seems to be in an acute metabolic encephalopathy, almost like she were under the influence. UDS was positive for THC but otherwise negative. LEVI <3.0. Will get MRI brain and EEG in the morning. She is not exhibiting signs of meningoencephalitis i.e. no fevers, no nuchal rigidity and no headaches. (3) Hypertension: Assessment and plan: continue metroprolol and diuretics and isosorbide mononitrate. Qualifiers: Hypertension type: primary hypertension Qualified Code(s): I10 - Essential (primary) hypertension (4) GERD (gastroesophageal reflux disease): Assessment and plan: continue pantoprazole and carafate. hold celecoxib in light of her progressive anemia. Qualifiers: Esophagitis presence: esophagitis presence not specified Qualified Code(s): K21.9 - Gastro-esophageal reflux disease without esophagitis (5) Sleep apnea: Qualifiers: Sleep apnea type: obstructive Qualified Code(s): G47.33 - Obstructive sleep apnea (adult) (pediatric) (6) Diabetes mellitus type 2, controlled: Status: Chronic Assessment and plan: continue basal/bolus insulin; substitute her degludec (Tresiba) w/ Lantus; use novolog sliding scale moderate dosing; monitor glucose AC/HS. Last glycohemoglobin A1C was 7.0% as of 06/28/23. she is due for repeat level. Qualifiers: Diabetes mellitus complication status: without complication Diabetes mellitus terminal supervisor insulin use: with detention use Qualified Code(s): E11.9 - Type 2 diabetes mellitus without complications; Z79.4 - long-term (current) use of insulin (7) Coronary atherosclerosis: Status: Acute Assessment and plan: continue her DAPT, metoprolol and isosorbide mononitrate and crestor. no ischemic symptoms on admission and negative troponin. EKG demonstrated old inferior and anteroseptal infarct but no acute ST-T changes. Qualifiers: Associated angina: without angina Coronary Disease-Associated Artery/Lesion type: [place] artery [place] vs. transplanted heart: [place] heart Qualified Code(s): I25.10 - Atherosclerotic heart disease of [place] coronary artery without angina pectoris (8) CHF (congestive heart failure): Status: Chronic Assessment and plan: continue her duretics and her metoprolol; she does not clinically appear to be in acute CHF, i.e. clear lungs; no pitting edema, no JVD Qualifiers: Heart failure type: biventricular Qualified Code(s): I50.82 - Biventricular heart failure History of Present Illness History of Present Illness Chief Complaint: confusion Narrative: 68 yr old female w/ hx of BPD type 1, CAD s/p CABG, CHF HFREF LVEF 40-45%, severe MR s/p mitral valve clip, mild mitral stenosis, cor pulmonale (dilated RV w/ mod-severe TR, RVSP 62 MM), HTN, GERD, fibromyalgia, type II DM on insulin, who has had cognitive decline x several months but was brought to the E.D. today d/t family concern that patient was not acting like herself w/ more confusion over past week, new speech problems w/ words strung together in non-sense pattern. Onset of speech problems began this morning. Patient was accompanied to the E.D. by her son and sister. No noticeable focal weakness. Evaluation in the E.D. included routine labs (CBC, CMP, TSH, troponin I,UA, UDS-tox screen, LEVI level) and CTA of brain and cervical vessels. CTA head and neck showed no hemodynamically significant stenosis of intracranial or extracranial vasculature but brain demonstrated chronic small vessel ischemic type white matter changes but no obvious infarcts. Labs were remarkable for NC/NC anemia w/ increased RDW and normal WBC and platelets; Hb 8.6 gm that has steadily declined since last normal June 14, 2023 when it was 12.5 gm. Last levels 10.5 gm on 09/07/23 and 9.4 gm on 09/20/23 and 9.1 gm on 10/09/23. chemistries remarkable for mild increased TSH 8.35 but normal FT4 1.17 (note patient is not on levothyroxine therapy); alkaline phosphatase 255 ( has been intermittently elevated then normal since 01/02/19) last normal 09/20/23 when it was 109. AST, ALT both normal w/ borderline total bili 1.1. Mildly elevated BUN and creatinine 24 and 1.1 however patient is chronically on diuretics for her CHF. UA within normal. Teleneurology consult was obtained by the E.D. provider and it was recommended patient be admitted for MRI brain, EEG, monitor neurologic status. MRI brain was ordered but not done d/t concern for her mitral valve clip being metallic but this has since been established that her mitral valve clip does not preclude an MRI. DDx: metabolic encephalopathy, CVA, vascular dementia, BPD, infectious, occult malignancy. She has not exhibited other focal signs/symptoms of an acute CVA, has been afebrile w/ normal WBC and negative UA. Patient will be admitted to med/surg, monitored w/ vital signs/neuro checks, telemetry, MRI brain and EEG will be done tomorrow. Consider tele-psych consult. Will ask P.T. and [employer] PIECE EXPANSION MAKER HAND to evaluate her. Review of Systems Unobtainable due to mental condition PFSH All Active Problems (Updated 10/21/23 @ 22:01 by Jaret Cabello MD) Encephalopathy acute (Acute) Progressive cognitive dysfunction (Chronic) Constipation (Acute) Injury of left little finger (Acute 07/13/22) Fracture of third metatarsal bone of left foot (Acute 07/13/22) Bipolar 1 disorder (Acute) Chest pain, rule out acute myocardial infarction (Acute) Hx of CABG (Chronic) CHF (congestive heart failure) (Chronic) Diabetes mellitus type 2, controlled (Chronic) Coronary atherosclerosis (Acute) Accelerating angina (Acute) Hyperlipidemia (Acute) Sinusitis (Acute) Fatigue (Acute) Mitral insufficiency (Acute) Medical History Tobacco abuse Hypertension GERD (gastroesophageal reflux disease) Fibromyalgia Diabetes Sleep apnea Surgical History Status post carpal tunnel release of both wrists S/P mitral valve clip implantation Hx of CABG 2015 Social History Smoking/Tobacco Use Status: Current every day Tobacco Type: cigarettes Quit status: considering quitting Smoking risk assessment performed?: Yes Alcohol Intake: current Alcohol Intake frequency: a few times a week Alcohol type: wine Drug use: Never Substance use type: does not use Housing: house What type of physical activity do you participate in: other Details: cardiac rehab Do you feel safe at home: Yes Do you feel safe in your relationship?: Yes History History Para 4 Hx # Term Pregnancies Multiple births Hx # Pregnancies Ectopic pregnancies AB induced Hx Number of Living Children AB spontaneous Meds Allergies and Home Medications Allergies Allergy/AdvReac Type Severity Reaction Status Date / Time ezetimibe [From Vytorin] Allergy Unknown Other (See Verified 10/09/23 18:44 Comment) hydrocodone Allergy Unknown Other (See Verified 10/09/23 18:44 Comment) pravastatin Allergy Unknown Other (See Verified 10/09/23 18:44 Comment) simvastatin [From Vytorin] Allergy Unknown Other (See Verified 10/09/23 18:44 Comment) ibuprofen AdvReac Severe severe Verified 10/09/23 18:44 vomiting semaglutide [From Ozempic] AdvReac Severe Other (See Verified 10/09/23 18:44 Comment) Home Medications Medication Instructions Recorded Confirmed Type lamotrigine 100 mg tablet 100 mg PO BID 04/08/14 10/21/23 History (Lamictal) nitroglycerin 0.4 mg sublingual 0.4 mg sublingual Q5 MIN PRN X3 07/01/15 10/21/23 Rx tablet (Nitrostat) PRN Chest Pain #15 tabs aspirin 81 mg tablet,delayed 81 mg PO HS #30 tab-caps 05/29/16 10/21/23 History release (Adult Low Dose Aspirin) rosuvastatin 40 mg tablet (Crestor) 40 mg PO QPM 01/03/18 10/21/23 History multivitamin (Daily Multi-Vitamin 1 tab PO DAILY 01/04/18 10/21/23 History tablet) vitamin B complex (B-Complex 1 tab PO DAILY 01/04/18 10/21/23 History tablet) alprazolam 0.5 mg tablet 0.5 mg PO DAILY PRN anxiety 11/05/18 10/21/23 History naloxone 4 mg/actuation nasal 4 mg intranasal PRN PRN 11/21/18 10/21/23 History spray (Narcan) magnesium L-lactate 84 mg 84 mg PO DAILY 12/23/18 10/21/23 History tablet,extended release pantoprazole 40 mg tablet,delayed 40 mg PO HS 04/07/19 10/21/23 History release cholecalciferol (vitamin D3) 25 1,000 unit PO DAILY 09/23/20 10/21/23 History mcg (1,000 unit) capsule metoprolol succinate 50 mg 75 mg PO HS 12/27/20 10/21/23 History tablet,extended release 24 hr torsemide 20 mg tablet See Rx Instructions .Route .COMPLEX 08/23/22 10/21/23 History insulin aspart U-100 100 unit/mL 7 unit subcut QAM 08/25/22 10/21/23 History (3 mL) subcutaneous pen (Novolog FlexPen U-100 Insulin aspart) clopidogrel 75 mg tablet 75 mg PO HS 09/06/23 10/21/23 History insulin degludec 100 unit/mL (3 45 unit subcut DAILY 09/06/23 10/21/23 History mL) subcutaneous pen (Tresiba FlexTouch U-100 insulin) lamotrigine 25 mg tablet 25 mg PO BID 09/06/23 10/21/23 History spironolactone 25 mg tablet 12.5 mg PO HS 09/06/23 10/21/23 History isosorbide mononitrate 30 mg 30 mg PO HS #30 tabs 09/07/23 10/21/23 Rx tablet,extended release 24 hr celecoxib 100 mg capsule 100 mg PO BID 10/21/23 10/21/23 History sucralfate 1 gram tablet 1 g PO PRN 10/21/23 10/21/23 History Exam Narrative Exam Narrative: Alert and oriented x person, place ([facility]) and date (month and year); however, she could not elaborate on why she is here HEENT: Atraumatic normocephalic, pupils equally round reactive to light and accommodation, extraocular motion intact, TMs intact, nares moist and patent without exudate or bleeding, oropharynx noninjected without exudate, upper denture in place, single tooth in lower jaw on the left w/ caries Neck: Supple, nontender, without thyromegaly or lymphadenopathy or JVD. Normal carotid pulses Lungs: Clear to auscultation and percussion Heart: Regular rate and rhythm without murmur rub or gallop. Normal apical impulse Abdomen: Nondistended, normal bowel sounds, nontender to palpation or percussion, no organomegaly, multiple small bruises Genitalia and rectal exam: Deferred Breasts: Deferred Extremities: Normal range of motion with normal strength. No peripheral cyanosis or edema. Normal pulses Neurologic: Cranial nerves II through XII grossly within normal limits. normal ROM and grossly normal strength, DTRs within normal limits. No tremors or asterixis. She seems to neglect her right side, when doing simultanous testing of sensation over her face or extremities, she would alway say that I was touching her on her left although she would exhibit withdrawal to noxious stimulation on the right and she volunatarily moves her right side; she did finally recognize her right side when I had to repeatedly ask her to raise her right arm. When questioned her name she correctly gives her name, when asked where she is at tonight she would correctly state [facility] and [facility] Results Labs 10/21/23 14:20 10/21/23 14:20 Labs: Laboratory Results - last 24 hr 10/21/23 10/21/23 10/21/23 14:20 14:40 16:57 WBC 8.74 RBC 3.19 L Hgb 8.6 L Hct 28.2 L MCV 88 MCH 27.0 MCHC 30.5 L RDW 16.6 H Plt Count 333 MPV 10.4 Immature Gran % 0.7 Neutrophils % 66.7 Lymphocytes % 19.8 Monocytes % 12.0 Eosinophils % 0.1 Basophils % 0.7 Nucleated RBC % 0.2 Absolute Neutrophils 5.83 Absolute Lymphocytes 1.73 Absolute Monocytes 1.05 H Absolute Eosinophils 0.01 Absolute Basophils 0.06 Sodium 137 Potassium 3.8 Chloride 102 Carbon Dioxide 26.3 Anion Gap 8.7 BUN 24 H Creatinine 1.1 H Est GFR (CKD-EPI 2020) 55.42 Glucose 140 H Calcium 8.6 Magnesium 2.0 Total Bilirubin 1.1 H AST 33 ALT 30 Alkaline Phosphatase 255 H Troponin I < 50 Total Protein 7.8 Albumin 2.9 L TSH 8.35 H Free T4 1.17 Urine Color Yellow Urine Clarity Clear Urine pH 6.5 Ur Specific Harris 1.015 Urine Protein Negative Urine Ketones Negative Urine Blood Negative Urine Nitrite Negative Urine Bilirubin Negative Urine Urobilinogen 0.2 Ur Leukocyte Esterase Negative Urine Glucose Negative Urine Opiates Screen Negative Urine Methadone Screen Negative Ur Barbiturates Screen Negative Ur Tricyclics Screen Negative Ur Amphetamines Screen Negative U Benzodiazepines Scrn Negative Urine Cocaine Screen Negative Ur THC Screen Positive A Ethyl Alcohol < 3.0 10/21/23 18:04 WBC RBC Hgb Hct MCV MCH MCHC RDW Plt Count MPV Immature Gran % Neutrophils % Lymphocytes % Monocytes % Eosinophils % Basophils % Nucleated RBC % Absolute Neutrophils Absolute Lymphocytes Absolute Monocytes Absolute Eosinophils Absolute Basophils Sodium Potassium Chloride Carbon Dioxide Anion Gap BUN Creatinine Est GFR (CKD-EPI 2020) Glucose Calcium Magnesium Total Bilirubin AST ALT Alkaline Phosphatase Troponin I Cancelled Total Protein Albumin TSH Free T4 Urine Color Urine Clarity Urine pH Ur Specific Harris Urine Protein Urine Ketones Urine Blood Urine Nitrite Urine Bilirubin Urine Urobilinogen Ur Leukocyte Esterase Urine Glucose Urine Opiates Screen Urine Methadone Screen Ur Barbiturates Screen Ur Tricyclics Screen Ur Amphetamines Screen U Benzodiazepines Scrn Urine Cocaine Screen Ur THC Screen Ethyl Alcohol Last Vital Signs Temp 37.2 C 10/21/23 14:25 Pulse 71 10/21/23 16:46 Resp 27 H 10/21/23 16:30 BP 125/45 L 10/21/23 16:46 Pulse Ox 94 10/21/23 14:25 Time Spent Time spent with Patient: 55-74 minutes Time was spent: preparing to see the patient(eg.review tests), obtaining and/or reviewing separately otained hiistory, ordering medications,tests, procedures, referring, communicating with other health intensive care specialist, indepentently interpreting results and care coordination
[2023-10-22] VITALS (14 sets, daily range): BP systolic 102–158; BP diastolic 52–83; PULSE 62–83; RESP 10–22; TEMP 36.2–37.3; O2SAT 93–99
[2023-10-22] MEDS: Dextrose 50%-Water 25 GM/50 ML SYR IVP ×3 (00:33→03:00)
[2023-10-22 01:12] LABS: BE (Venous) 2 mmol/L (-2-3); HCO3 (Venous) 26 mmol/L (23-28); O2 Sat (Venous) 88 %; TCO2 (Venous) 24 mmol/L (24-29); pCO2 (Venous) 36 mmHg (41-51); pH (Venous) 7.46 (7.31-7.41); pO2 (Venous) 55 mmHg
[2023-10-22 01:25] LABS: Ammonia 27 umol/L (11-32)
[2023-10-22 06:56] LABS: Abs Immature Grans 0.05 10^3/uL (0.0-0.06); Absolute Basophil Count 0.03 10^3/uL (0.0-0.2); Absolute Eosinophil Count 0.03 10^3/uL (0.0-0.7); Absolute Lymphocyte Count 1.33 10^3/uL (1.2-3.4); Absolute Monocyte Count 0.96 10^3/uL (0.1-0.8); Absolute Neutrophil Count 5.79 10^3/uL (1.2-6.7); Basophils % 0.4 %; Eosinophils % 0.4 %; HCT 27.7 % (36.0-46.0); HGB 8.2 g/dL (11.2-15.7); Immature Grans % 0.6 %; Lymphocytes % 16.2 %; MCH 26.7 pg (27.0-33.0); MCHC 29.6 % (32.0-36.0); MCV 90 fL (80-95); MPV 10.4 fL (8.0-11.0); Monocytes % 11.7 %; Neutrophils % 70.7 %; Nucleated RBC 0.2 % (0.0-0.3); Platelet Count 304 10^3/uL (130-400); RBC 3.07 10^6/uL (3.93-5.22); RDW 16.7 % (11.7-14.6); RDW-SD 53.9 fL; Reticulocyte 3.6 % (0.5-2.4); WBC 8.19 10^3/uL (4.4-10.8)
[2023-10-22 07:35] LABS: Iron 27 ug/dL (50-170); Total Iron Binding Capacity 385 ug/dL (250-450); Transferrin Sat 7 % (15-50)
[2023-10-22 07:42] LABS: Anion Gap 12.3 mmol/L (3-11); BUN 22 mg/dL (7-18); CO2 24.7 mmol/L (21.0-32.0); Calcium 9.2 mg/dL (8.5-10.1); Chloride 105 mmol/L (98-107); Estimated GFR 62.13 (mL/min/1.73m2); Ferritin 88 ng/mL (8-252); Glucose 72 mg/dL (74-106); Potassium 3.5 mmol/L (3.5-5.1); Sodium 142 mmol/L (136-145)
--- NOTE | 2023-10-22 08:56 | PT.INIE ---
PT Notes Visit Reasons: Altered mental status Physical Therapy Inpatient Initial Evaluation Date: 10/22/2023 Referring Doctor: Jaret Elizalde MD PT Orders: PT CONSULT: Fall safety assessment 10/22/2023 Precautions: Fall. Standard. Activity as tolerated. Patient Profile/Admitting Diagnosis: Yas is a 68-year-old female who presented to the ED on 10/21/2023 due to altered mental status and speech disturbance. Patient is admitted for continued monitoring of progressive cognitive dysfunction, encephalopathy, HTN, GERD, sleep apnea, DM, coronary arthrosclerosis and CHF. PMHX: All Active Problems (Updated 10/21/23 @ 22:01 by Jaret Cabello MD) Encephalopathy acute (Acute) Progressive cognitive dysfunction (Chronic) Constipation (Acute) Injury of left little finger (Acute 07/13/22) Fracture of third metatarsal bone of left foot (Acute 07/13/22) Bipolar 1 disorder (Acute) Chest pain, rule out acute myocardial infarction (Acute) Hx of CABG (Chronic) CHF (congestive heart failure) (Chronic) Diabetes mellitus type 2, controlled (Chronic) Coronary atherosclerosis (Acute) Accelerating angina (Acute) Hyperlipidemia (Acute) Sinusitis (Acute) Fatigue (Acute) Mitral insufficiency (Acute) Medical History Tobacco abuse Hypertension GERD (gastroesophageal reflux disease) Fibromyalgia Diabetes Sleep apnea Surgical History Status post carpal tunnel release of both wrists S/P mitral valve clip implantation Hx of CABG 2015 Social History/Home Situation: Modified independent with all mobility ADL performance with occasional use of single-point cane. Lives with son who works during the day and her sister who is there and can help 07/12. Equipment Owned/DME: Single pint cane, walking stick Subjective: I have been so sleepy like this for the past 2-3 days now! Objective: General Observation: Resting in bed. Very lethargic limiting ability to finish breakfast, patient was still trying to finish when she was seen at 8:56 (breakfast was served 8:00 AM) Mental Status: Lethargic and oriented as to person, place, time, and purpose. Able to pay attention, focus, and respond appropriately. Pain: None reported Vital Signs: Blood sugar monitoring reading at 69 mg/dL, CAMPGROUND ATTENDANT Keke/RECORDING STUDIO SET UP WORKER tigreen Trisha/Nurse Claude updated ROM: Right Upper Extremity: Shoulder Flexion WFL. Shoulder abduction WFL. Elbow flexion WFL. Wrist flexion WFL. Functional opening and closing of hand WFL. Left Upper Extremity: Shoulder Flexion WFL. Shoulder abduction WFL. Elbow flexion WFL. Wrist flexion WFL. Functional opening and closing of hand WFL. Right Lower Extremity: Hip flexion WFL. Hip abduction WFL. Knee flexion WFL. Ankle dorsiflexion WFL. Ankle plantarflexion WFL. Left Lower Extremity: Hip flexion WFL. Hip abduction WFL. Knee flexion WFL. Ankle dorsiflexion WFL. Ankle plantarflexion WFL. Strength: Right Upper Extremity: Shoulder flexors 4-/5. Shoulder abductors 4-/5. Elbow flexors 4-/5. Elbow extensors 4-/5. Transitional Care Liaison strong. Left Upper Extremity: Shoulder flexors 4-/5. Shoulder abductors 4-/5. Elbow flexors 4-/5. Elbow extensors 4-/5. Transitional Care Liaison strong. Right Lower Extremity: Hip flexors 4/5. Hip abductors 4/5. Knee flexors 4/5. Knee extensors 4/5. Ankle dorsiflexors 4/5. Ankle plantarflexors 4/5. Left Lower Extremity: Hip flexors 4/5. Hip abductors 4/5. Knee flexors 4/5. Knee extensors 4/5. Ankle dorsiflexors 4/5. Ankle plantarflexors 4/5. Bed Mobility/Transfers: Minimal cueing provided for use of B hands as needed for support, movement sequence, AD management, and posture to reduce fall risk and minimize pain report Rolling standby assist Supine to sit contact-guard assist Sit to stand contact guard assist with FWW Stand to sit contact guard assist with FWW Bed to reclining chair contact guard assist with FWW Reclining chair to bed contact guard assist with FWW Gait: Facilitated safe and correct performance of level surface ambulation covering a distance of 200 feet using front wheeled walker with minimal verbal cueing for AD management, posture, and limb advancement to reduce fall risk and optimize balance. Balance: Static Sitting: Good Dynamic Sitting: Good Static Standing: Fair Dynamic Standing: Fair Special Tests: Mobility Limitations Standardized Measure [facility] 6 clicks Basic Mobility Inpatient Short Form: Raw Score: 18 CMS Score: 47% deficit Pronator Drift: Positive on R Romberg Sign: Slight postural sway on L but no LOB rapid alternating movement: Intact 4-Stage Balance Test: Feet together 10 seocnds, Semi-tandem 10 seconds, Full tandem <10 seconds, One-legged stance <10 seconds Informed Consent/Education: Patient was instructed in purpose of PT consult and plan of care. Agreeable to proceed with established PT POC to achieve personal goals. Assessment: Patient requires use of front wheeled walker for all mobility ADL performance maximize independence and reduce fall risk. Strength deficit and B UE LE symmetric however noted slight pronator drift on R with testing. Patient presents with clinical signs and symptoms consistent with current/admitting diagnoses that have resulted to mobility limitations, gait instability, generalized weakness, and overall ADL decline as demonstrated by the following impairment level findings: 1. Decreased strength to B UE/LE major muscle groups 2. Impaired sitting/standing balance 3. Impaired activity tolerance Impairments are contributing to the following functional limitations: 1. Difficulty with ambulation without assistive device and physical assistance 2. Increased completion time for mobility ADL performance 3. Increased risk for falls 4. Difficulty with managing steps alone safely Patient is assessed as a [id number] moderate complexity based on the following: History: 68-year-old female with past medical history as indicated above Examination: Demonstrable impairment in strength, balance, and mobility level with underlying impairments and functional limitations as exhibited above as well as deficit score of 47% utilizing the [facility] Mobility Inpatient Short Form Presentation: Evolving Decision Makin moderate complexity Goals: Goals X1 week 1. Supine-Sit independent 2. Sit-Supine independent 3. Sit-Stand independent 4. Stand-Sit independent with FWW 5. Bed-Chair independent with FWW 6. Chair-Bed independent with FWW 7. Independent gait on level surface with use of FWW for at least 300 feet without report of pain nor dyspnea 8. Independent stair negotiation while holding onto B rails for at least 3 steps without report of pain nor dyspnea 9. Independent with home exercise program 10. Good static and dynamic standing balance/tolerance Plan of Care/Treatment Plan: 1-2x/day, 7 days/week x 1 week. Plan of care has been reviewed with the SALESPERSON JEWELRY providing the service under Physical Therapy direction. Initiate Physical Therapy intervention for pain management as needed, strengthening, bed mobility, transfers, gait, stairs, balance training, and use of assistive device. DISCHARGE RECOMMENDATIONS: B Home with no services [] [X] Home with services. patient will benefit from home health PT services in order to progress mobility level using least restrictive assistive ambulatory device, assess home safety, identify additional equipment needs, and establish a functional maintenance program that will increase ability of patient to remain at home. [] Home with outpatient PT [] [] SNF for continued rehabilitation [] [] Group Home Care [] [] SNF versus LTC based on ability to participate and progress [] TREATMENT CODE/TIME: 96762 x 20 minutes for 1 unit, 44384 x 24 minutes for 2 units (8:56-9:38). Thank you for the opportunity to participate in the care of this patient. Barb Martines PT, DPT, CLT [facility] [place], [place]
[2023-10-22] MEDS: lamoTRIgine 100 MG TAB PO ×2 (10:14→19:50)
[2023-10-22] MEDS: Magnesium Lactate-SR 84 MG TABCR PO (10:14)
[2023-10-22] MEDS: Normal Saline Flush 10 ML SYR IVP ×3 (10:15→19:54)
[2023-10-22] MEDS: Multivitamin TAB 1 TAB PO (10:15)
[2023-10-22] MEDS: lamoTRIgine 25 MG TAB PO ×2 (10:15→19:51)
[2023-10-22] MEDS: Cholecalciferol (Vitamin D3) 1,000 UNIT TAB 1000 UNITS PO (10:15)
[2023-10-22] MEDS: Vitamins B Comp w/C TAB 1 TAB PO (10:15)
[2023-10-22] MEDS: Torsemide 20 MG TAB 40 MG PO (10:15)
[2023-10-22] MEDS: Enoxaparin 40 MG/0.4 ML SYR SC (10:16)
--- NOTE | 2023-10-22 12:35 | W.SPSTE ---
Date of service: 10/22/23 Time of Service: 12:35 Subjective INPATIENT COGNITIVE & COMMUNICATION EVALUATION - ENGRAVING PRESS OPERATOR Referring physician: Angel Cabello MD Primary Dx & Reason for referral: AMS with altered speech/language HPI & SUMMARY: Patient is a 68 YO F with hx bipolar, CRISTI, CAD s/p CABG, CHF, severe mitral regurgitation s/p mitral valve clip, ?cor pulmonale, HTN, GERD, fibromyalgia, and DM2 with fluctuating cognitive decline over the past several weeks/months, but brought to ED in light of increased confusion and altered mental status, and new issues with verbal expression and nonsensical utterances. No noticeable focal weakness found on exam in ED. CTA was unremarkable except chronic small vessel ischemic changes. Social: Lives with family who cares for her 07/12. All Active Problems (Updated 10/21/23 @ 22:01 by Jaret Cabello MD) Encephalopathy acute (Acute) Progressive cognitive dysfunction (Chronic) Constipation (Acute) Injury of left little finger (Acute 07/13/22) Fracture of third metatarsal bone of left foot (Acute 07/13/22) Bipolar 1 disorder (Acute) Chest pain, rule out acute myocardial infarction (Acute) Hx of CABG (Chronic) CHF (congestive heart failure) (Chronic) Diabetes mellitus type 2, controlled (Chronic) Coronary atherosclerosis (Acute) Accelerating angina (Acute) Hyperlipidemia (Acute) Sinusitis (Acute) Fatigue (Acute) Mitral insufficiency (Acute) Medical History Tobacco abuse Hypertension GERD (gastroesophageal reflux disease) Fibromyalgia Diabetes Sleep apnea Surgical History Status post carpal tunnel release of both wrists S/P mitral valve clip implantation Hx of CABG 2015 SUBJECTIVE: Patient was contacted in her room, appearing somnolent ?but quickly responsive to voice. Very pleasant and agreeable to participate in this evaluation. She reports that she feels ?a million times better? than she did upon arrival and attributes this to being on BIPAP and having better sleep than usual last night. She feels she is not quite back to baseline. Reports even at baseline, frequently forgetting what she was in the middle of saying or ?blanking out? when listening to people, losing track of her thoughts, etc. IMPRESSIONS: Speech production appears WFL, possibly mildly impact by fatigue but fully intelligibly. Language is intact except for complex instructions and mild word-finding difficulties, however this appears to be mitigated primarily by limited working memory/attention capacity, rather than due to language-specific impairments. Patient presents with moderate-severe attention capacity, working memory deficits and resulting difficulty encoding new learning/memories. Suspect this is [id number] and complicated by CRISTI, DM11 and other medical/psych comorbidities. Her insight, problem-solving and executive function abilities remain largely intact, however more complex decisions and processes will be compromised by poor immediate recall and difficulty holding multiple pieces of information in mind at a time. ?Her verbal comprehension breaks down with more complex, arbitrary, and multi-step instructions. Given that she is cared for by family members in her home, she can likely safely return home at this time,? but will benefit from ENGRAVING PRESS OPERATOR services to address cognitive-communication strategies and caregiver education in the home to increase safety and independence. ? Prognosis: Fair (age, time since onset, relative severity, motivation, comorbidities) PLAN: Medical team to place Home health referral for ST. Patient/Caregiver/Staff Recommendations: Memory/attention?- address visual/auditory distractions within patient's environment, paying close mind to reducing number/complexity of items within patient's visual field; ensure important numbers/directions are visible in multiple areas for reference as needed; patient is likely to require frequent check-ins by caregivers/family to ensure safety within home environment. Provide multiple repetitions and written reminders for important information. Receptive Language: *When providing verbal and/or written instructions, break down into single steps, using short and simple phrases vs lengthy/complex language in order to reduce cognitive load Patient Strengths: Expressive Language - WFL General Awareness of Cognitive Deficits - Patient aware of difficulties with memory, attention Education provided: ? [x] Results of this examination ? [x] Role of ENGRAVING PRESS OPERATOR in workup, recovery ? [x] Impact of various disease processes on cognitive, communication, swallow function ? [x] Basic strategy training for attention difficulties.? OBJECTIVE: Oral motor/CN exam: Unremarkable, including non-speech AMR's Informal clinical assessment tasks: Mental Status:?Oriented to place, time, and situation. Appears accurate director of neighborhood service center with good insight into general deficits. She appears without confusion at time of exam. Her recall of recent events is fair, she is able to describe reason for hospitalization though in a somewhat vague manner, admittedly, which makes sense given her reason for admit. Aware of errors made during testing but often unable to correct. ?Nope, I lost it?? Speech: Lingual, labial, palatal speech AMR/SMR's: Productions with WNL rate, rhythm, coordination. Mildly imprecise to trained listener in conversation with some plosives, but 100% comprehensible without overt dysarthric features. Mildly hypernasal speech, patient describes this as baseline. Automatic speech: no errors Formal Screenings: Language: --Western Aphasia Battery - Revised -- --Bedside Record Form-- Spontaneous Speech Content: +02/23 Spontaneous Speech Fluency: +10/10 Comments: Patient with grammatical, fluent verbal expression. Occasional pause for wordfinding. No paraphasic errors, speech is not telegraphic. Appropriate use of functor words. Appropriate syntax, lexical variety, and pragmatics. Auditory Verbal Comprehension, Y/N questions: +10/10 Sequential Commands: +9/10 Comments: difficulty with detail oriented multi-step instructions Repetition: +10/10 Object Naming: +10/10 Bedside Aphasia Score: 98 (WFL) -- [facility] Mental Status Examination / SLUMS: Total Score:?16?/ 30 (scores between 0 and 20 suggest a likelihood of dementia) Orientation: 3/3 Calculation and Registration: 0/3 Category Namin/3 Delayed Recall with Interference: 0/5 Digit Span: 1/2 Clock Draw: 2/4 Visual-Spatial: 2/2 Story recall & Executive Function: 10/22 Liz Soto CCC-ENGRAVING PRESS OPERATOR [facility] Speech-Language Pathology [phone] Time spent: 40 min Codin Speech & language evaluation
--- NOTE | 2023-10-22 13:59 | PT.INTREAT ---
PT Notes Visit Reasons: Altered mental status Physical Therapy Inpatient Treatment Note Date: 10/22/2023 Precautions: Fall. Standard. Activity as tolerated. Subjective: Agreeable to moving with PT for today's session. Continues to complain of fatigue. Nearly lost balance when she turned over to her right, PT was able to re-stabilize patient to prevent a fall. Objective: General Observation: Resting in bed. Very lethargic limiting ability to finish breakfast, patient was still trying to finish when she was seen at 8:56 (breakfast was served 8:00 AM) Mental Status: Lethargic and oriented as to person, place, time, and purpose. Able to pay attention, focus, and respond appropriately. Pain: None reported Vital Signs: After today's walk BP 138/74 mmHg, 94% on RA, 83 bpm Bed Mobility/Transfers: Minimal cueing provided for use of B hands as needed for support, movement sequence, AD management, and posture to reduce fall risk and minimize pain report Rolling standby assist Supine to sit contact-guard assist Sit to stand contact guard assist with FWW Stand to sit contact guard assist with FWW Bed to reclining chair contact guard assist with FWW Reclining chair to bed contact guard assist with FWW Gait: Facilitated safe and correct performance of level surface ambulation covering a distance of 200 feet +150 feet using front-wheeled walker with minimal verbal cueing for AD management, posture, and limb advancement to reduce fall risk and optimize balance. Contact guard assist provided. Needed rest of t least 5 minutes due to fatigue. Balance: Static Sitting: Good Dynamic Sitting: Good Static Standing: Fair Dynamic Standing: Fair Assessment: Patient requires use of front-wheeled walker for all mobility ADL performance maximize independence and reduce fall risk. Strength deficit and B UE LE symmetric however noted slight pronator drift on R with testing. Patient presents with clinical signs and symptoms consistent with current/admitting diagnoses that have resulted to mobility limitations, gait instability, generalized weakness, and overall ADL decline as demonstrated by the following impairment level findings: 1. Decreased strength to B UE/LE major muscle groups 2. Impaired sitting/standing balance 3. Impaired activity tolerance Impairments are contributing to the following functional limitations: 1. Difficulty with ambulation without assistive device and physical assistance 2. Increased completion time for mobility ADL performance 3. Increased risk for falls 4. Difficulty with managing steps alone safely Plan of Care/Treatment Plan: 1-2x/day, 7 days/week x 1 week. Plan of care has been reviewed with the CASINO CAGE SUPERVISOR providing the service under Physical Therapy direction. Initiate Physical Therapy intervention for pain management as needed, strengthening, bed mobility, transfers, gait, stairs, balance training, and use of assistive device. DISCHARGE RECOMMENDATIONS: B Home with no services [] [X] Home with services. patient will benefit from home health PT services in order to progress mobility level using least restrictive assistive ambulatory device, assess home safety, identify additional equipment needs, and establish a functional maintenance program that will increase ability of patient to remain at home. [] Home with outpatient PT [] [] SNF for continued rehabilitation [] [] Deputy Clerk Of Court Care [] [] SNF versus LTC based on ability to participate and progress [] TREATMENT CODE/TIME: 38401 x 39 minutes for 3 units (13:59-14:38).
--- NOTE | 2023-10-22 15:46 | PGE_ITS ---
Date of Service Date of service: 10/22/23 Time of Service: 15:46 Assessment and Plan Assessment and plan (1) Progressive cognitive dysfunction: Status: Chronic Assessment and plan: -patient reported to have had progressive decline in her cognitive abilities over several months but presented to ED with acute worsening with speech difficulties, namely nonsensical speech w/ non-sequitur words and statements -no motor or sensory defects -CTA brain that other than showing white matter changes consistent w/ small vessel ischemic changes had no obvious stroke or thrombosis. -Patient did not have any obvious seizures although she is on lamictal for her BPD. -patient symptoms have resolved since admission and she is back to her baseline mental status -Tele-neuro consult recommended the following: -EEG done, awaiting results -unable to get MRI brain as it took all day to confirm that patients endo clip was MRI compatable. given resolution of presenting sypmtoms which appears to be TIA, patient will have MRI as an outpatient early next week -P.T. consult for assessment of her strength/gait and ambulatory stability and GOLD PLATER consult will be obtained to evaluate her speech/cognition (2) Encephalopathy acute: Status: Ruled-out Assessment and plan: -UDS was positive for THC but otherwise negative. LEVI <3.0 (3) Hypertension: Assessment and plan: continue metroprolol and diuretics and isosorbide mononitrate. Qualifiers: Hypertension type: primary hypertension Qualified Code(s): I10 - Essential (primary) hypertension (4) GERD (gastroesophageal reflux disease): Assessment and plan: continue pantoprazole and carafate. hold celecoxib in light of her progressive anemia. Qualifiers: Esophagitis presence: esophagitis presence not specified Qualified Code(s): K21.9 - Gastro-esophageal reflux disease without esophagitis (5) Sleep apnea: Qualifiers: Sleep apnea type: obstructive Qualified Code(s): G47.33 - Obstructive sleep apnea (adult) (pediatric) (6) Diabetes mellitus type 2, controlled: Status: Chronic Assessment and plan: continue basal/bolus insulin; substitute her degludec (Tresiba) w/ Lantus; use novolog sliding scale moderate dosing; monitor glucose AC/HS. Last glycohemoglobin A1C was 7.0% as of 06/28/23. she is due for repeat level. Qualifiers: Diabetes mellitus complication status: without complication Diabetes mellitus terminal supervisor insulin use: with skilled nursing use Qualified Code(s): E11.9 - Type 2 diabetes mellitus without complications; Z79.4 - exterminator termite (current) use of insulin (7) Coronary atherosclerosis: Status: Acute Assessment and plan: continue her DAPT, metoprolol and isosorbide mononitrate and crestor. no ischemic symptoms on admission and negative troponin. EKG demonstrated old inferior and anteroseptal infarct but no acute ST-T changes. Qualifiers: Associated angina: without angina Coronary Disease-Associated Artery/Lesion type: [place] artery [place] vs. transplanted heart: [place] heart Qualified Code(s): I25.10 - Atherosclerotic heart disease of [place] coronary artery without angina pectoris (8) CHF (congestive heart failure): Status: Chronic Assessment and plan: continue her duretics and her metoprolol; she does not clinically appear to be in acute CHF, i.e. clear lungs; no pitting edema, no JVD Qualifiers: Heart failure type: biventricular Qualified Code(s): I50.82 - Biventricular heart failure Subjective Subjective Interval history since last seen: Patient states that she is feeling that she is back to her baseline. She understands we are obtaining EEG and setting up for an outpatient MRI and has no complaints or concerns at this time. Exam Narrative Exam Narrative: well appearing female sitting up in the chair in no acute distress, AOx4, heart RRR, lungs CTAB, abdomen soft, non-tender, non-distended, normal sensation and strength in bilateral upper and lower extremities, CN II-XII intact, occasional word finding difficulty but otherwise clear speech and thought process Objective Last Vital Signs Temp 97.7 F 10/22/23 15:36 Pulse 62 10/22/23 15:36 Resp 17 10/22/23 15:36 BP 140/64 10/22/23 15:36 Pulse Ox 94 10/22/23 15:36 Laboratory Results - last 24 hr 10/21/23 10/21/23 10/21/23 14:40 16:57 18:04 WBC RBC Hgb Hct MCV MCH MCHC RDW Plt Count MPV Reticulocyte % (Auto) Immature Gran % Neutrophils % Lymphocytes % Monocytes % Eosinophils % Basophils % Nucleated RBC % Absolute Neutrophils Absolute Lymphocytes Absolute Monocytes Absolute Eosinophils Absolute Basophils VBG pH VBG pCO2 VBG pO2 VBG HCO3 VBG Total CO2 VBG O2 Saturation VBG Base Excess Sodium Potassium Chloride Carbon Dioxide Anion Gap BUN Creatinine Est GFR (CKD-EPI 2020) Glucose Calcium Iron TIBC Transferrin % Sat Ferritin Ammonia Troponin I Cancelled TSH 8.35 H Free T4 1.17 Urine Color Yellow Urine Clarity Clear Urine pH 6.5 Ur Specific [place] 1.015 Urine Protein Negative Urine Ketones Negative Urine Blood Negative Urine Nitrite Negative Urine Bilirubin Negative Urine Urobilinogen 0.2 Ur Leukocyte Esterase Negative Urine Glucose Negative Urine Opiates Screen Negative Urine Methadone Screen Negative Ur Barbiturates Screen Negative Ur Tricyclics Screen Negative Ur Amphetamines Screen Negative U Benzodiazepines Scrn Negative Urine Cocaine Screen Negative Ur THC Screen Positive A Ethyl Alcohol < 3.0 10/22/23 10/22/23 01:06 05:58 WBC 8.19 RBC 3.07 L Hgb 8.2 L Hct 27.7 L MCV 90 MCH 26.7 L MCHC 29.6 L RDW 16.7 H Plt Count 304 MPV 10.4 Reticulocyte % (Auto) 3.6 H Immature Gran % 0.6 Neutrophils % 70.7 Lymphocytes % 16.2 Monocytes % 11.7 Eosinophils % 0.4 Basophils % 0.4 Nucleated RBC % 0.2 Absolute Neutrophils 5.79 Absolute Lymphocytes 1.33 Absolute Monocytes 0.96 H Absolute Eosinophils 0.03 Absolute Basophils 0.03 VBG pH 7.46 H VBG pCO2 36 L VBG pO2 55 VBG HCO3 26 VBG Total CO2 24 VBG O2 Saturation 88 VBG Base Excess 2 Sodium 142 Potassium 3.5 Chloride 105 Carbon Dioxide 24.7 Anion Gap 12.3 H BUN 22 H Creatinine 1.0 Est GFR (CKD-EPI 2020) 62.13 Glucose 72 L Calcium 9.2 Iron 27 L TIBC 385 Transferrin % Sat 7 L Ferritin 88 Ammonia 27 Troponin I TSH Free T4 Urine Color Urine Clarity Urine pH Ur Specific [place] Urine Protein Urine Ketones Urine Blood Urine Nitrite Urine Bilirubin Urine Urobilinogen Ur Leukocyte Esterase Urine Glucose Urine Opiates Screen Urine Methadone Screen Ur Barbiturates Screen Ur Tricyclics Screen Ur Amphetamines Screen U Benzodiazepines Scrn Urine Cocaine Screen Ur THC Screen Ethyl Alcohol Time Spent with Patient Time Spent with Patient: >50 minutes Time was spent: preparing to see the patient(eg.review tests), obtaining and/or reviewing separately otained hiistory, ordering medications,tests, procedures, referring, communicating with other health insurance healthcare representative, indepentently interpreting results, counseling the patient and care coordination
--- NOTE | 2023-10-22 15:48 | PDOC.CMIN ---
Date of service: 10/22/23 Time of Service: 15:48 Care Management Initial Assmt Initial Assessment Reason for Hospitalization: AMS Functional Status/Living Situation Patient Presentation: Yas was out of her room for testing when CM attempted to meet with her. When CM returned she was having an EEG and could not be disturbed. Yas was admitted yesterday with altered mental status manifesting as speech difficulty. She was not making any sense and her speech was garbled. Her symptoms resolved and she will have outpatient MRI next week. Town of Residence: [facility] Resides with: Child and Other (sister also staying with her) Significant Other/Family: Out of area (son Hamlet gomez, daughter in [place]) Caregiver/Guardian: cristal Mcnulty Natural Supports: children, sister Employment Status: Retired Instrumental Activities of Daily Living (ADLs): Requires support Medications Medication Management: No Issues/Barriers identified Physical Functioning/Mobility Assistive Device: will need walker Advance Directives Advance Directives: Do you have an Advance Directive: Y 01/02/19 13:50 AD On File at [facility]: Y 01/23/19 14:42 Date Asked 01/01/21 09/06/23 12:42 AD Date Reviewed 10/21/23 10/21/23 20:06 COLST On File at [facility] No 10/09/23 16:51 COLST Date Scanned Comment: Anel Michelle HCA Code Status Resuscitation Status Full Code Portal Pt does not currently have a portal and education provided: No Portal Education: Patient declined Insurance Coverage/Financial Issues Insurance: Medicare Financial Assist 100 ACO Member: Yes Care Team Visit Care Team Role Provider Type Wily Starks MD Primary Care Provider NON-[facility] STAFF PHYSICIAN Jess Glover, BALLOON SELLER Other Providers SPEECH LANGUAGE PATHOLOGIST Josh Palacios, BALLOON SELLER Other Providers SPEECH LANGUAGE PATHOLOGIST Liz Soto Other Providers SPEECH LANGUAGE PATHOLOGIST Zenaida Martinez, BALLOON SELLER Other Providers SPEECH LANGUAGE PATHOLOGIST Katy Dominguez, BALLOON SELLER Other Providers SPEECH LANGUAGE PATHOLOGIST Dipti Pereira Other Providers OTHER Mark Hernandez MD Emergency Provider [facility] STAFF PHYSICIAN Jaret Cabello MD Admit Provider [facility] STAFF PHYSICIAN Attending Provider Discharge Potential Discharge Needs: PCP F/U Appt Anticipated Barriers to Discharge: None Identified Patient/Family Education Needs: Review discharge instructions, discuss Ask Me Three Transportation: Private vehicle Plan: Anticipate Yas will be discharged home with new home health services for PT. She will follow up with her community providers and plan of care and transport with family. CM will follow and continue to assess for discharge needs. PFSH All Active Problems (Updated 10/22/23 @ 15:51 by Hamlet Carr MD) Progressive cognitive dysfunction (Chronic) Constipation (Acute) Injury of left little finger (Acute 07/13/22) Fracture of third metatarsal bone of left foot (Acute 07/13/22) Bipolar 1 disorder (Acute) Chest pain, rule out acute myocardial infarction (Acute) Hx of CABG (Chronic) CHF (congestive heart failure) (Chronic) Diabetes mellitus type 2, controlled (Chronic) Coronary atherosclerosis (Acute) Accelerating angina (Acute) Hyperlipidemia (Acute) Sinusitis (Acute) Fatigue (Acute) Mitral insufficiency (Acute) Medical History Tobacco abuse Hypertension GERD (gastroesophageal reflux disease) Fibromyalgia Diabetes Sleep apnea Surgical History Status post carpal tunnel release of both wrists S/P mitral valve clip implantation Hx of CABG 2015 Social History Smoking/Tobacco Use Status: Current every day Tobacco Type: cigarettes Quit status: considering quitting Smoking risk assessment performed?: Yes Alcohol Intake: current Alcohol Intake frequency: a few times a week Alcohol type: wine Drug use: Never Substance use type: does not use Housing: house What type of physical activity do you participate in: other Details: cardiac rehab Do you feel safe at home: Yes Do you feel safe in your relationship?: Yes History History Para 4 Hx # Term Pregnancies Multiple births Hx # Pregnancies Ectopic pregnancies AB induced Hx Number of Living Children AB spontaneous SDOH(Care Management) Screening Will the Patient Participate in the Screening?: Yes Do you worry about having a steady place to live?: no Problems where you live: no known problems In the past 12 months, have you had to go without electric, gas, oil or water in your home?: no Have you or anyone in your house had to go without enough food to eat?: no Has lack of transportation kept you from medical appointments or from doing things needed for daily living?: no Has anyone in your support network made you feel unsafe for any reason?: no
--- NOTE | 2023-10-22 17:47 | CHAPLAIN ---
Yas was in bed. She had two visitors with her, who both seemed to know her well and know her medications. They were talking with Yas's nurse about her medication list. Yas is Taoist and said if she wants a visit from [facility], or [facility], she will call the [facility]. She thinks she will be going home tomorrow.
[2023-10-22] MEDS: Torsemide 20 MG TAB PO (17:50)
[2023-10-22] MEDS: Insulin Aspart 300 UNITS/3 ML PEN SC ×3 (17:59→23:12)
[2023-10-22] MEDS: Clopidogrel 75 MG TAB PO (19:50)
[2023-10-22] MEDS: Metoprolol CR 50 MG TABCR 75 MG PO (19:51)
[2023-10-22] MEDS: Isosorbide Mononitrate 30 MG TABCR PO (19:51)
[2023-10-22] MEDS: Acetaminophen 325 MG TAB PO (19:52)
[2023-10-22] MEDS: Spironolactone 25 MG TAB 12.5 MG PO (19:52)
[2023-10-22] MEDS: Aspirin E.C. 81 MG TABEC PO (19:53)
[2023-10-22] MEDS: Pantoprazole 40 MG TABCR PO (19:53)
[2023-10-22] MEDS: Rosuvastatin 20 MG TAB 40 MG PO (19:53)
[2023-10-23 00:47] VITALS: RESP 18
[2023-10-23 02:49] VITALS: BP 106/50; PULSE 63; RESP 18; TEMP 35.6; O2SAT 98
[2023-10-23 04:55] VITALS: RESP 23
[2023-10-23 07:26] VITALS: BP 109/49; PULSE 60; RESP 18; TEMP 36.4; O2SAT 99
[2023-10-23 08:13] VITALS: RESP 16; O2SAT 93
[2023-10-23] MEDS: Vitamins B Comp w/C TAB 1 TAB PO (09:31)
[2023-10-23] MEDS: Normal Saline Flush 10 ML SYR IVP (09:31)
[2023-10-23] MEDS: Torsemide 20 MG TAB 40 MG PO (09:31)
[2023-10-23] MEDS: lamoTRIgine 100 MG TAB PO (09:32)
[2023-10-23] MEDS: lamoTRIgine 25 MG TAB PO (09:32)
[2023-10-23] MEDS: Multivitamin TAB 1 TAB PO (09:32)
[2023-10-23] MEDS: Magnesium Lactate-SR 84 MG TABCR PO (09:32)
[2023-10-23] MEDS: Enoxaparin 40 MG/0.4 ML SYR SC (09:32)
[2023-10-23] MEDS: Cholecalciferol (Vitamin D3) 1,000 UNIT TAB 1000 UNITS PO (09:32)
[2023-10-23] MEDS: Insulin Glargine 300 UNITS/3 ML PEN 36 UNITS SC (09:39)
[2023-10-23 10:35] VITALS: BP 107/53; PULSE 64; RESP 18; TEMP 36.9; O2SAT 94
--- NOTE | 2023-10-23 11:02 | PDOC.HHF2F ---
Home Health Referral Home Health Orders Clinical synopsis of why skilled professionals are needed: TIA, CAD, IDDM, Bipolar I disorder, CRISTI Registered Nurse: Check all that apply Instruct on new or changed medication(s)/assess compliance: Ordered Physical Therapist: Check all that apply Increase strength & endurance for safe mobility at home: Ordered To design/establish home maintenance program: Ordered Fall reduction therapy program for patient with history of frequent falls: Ordered Home safety evaluation and teaching/gait training including stair management (if applicable): Ordered Encounter Date and Reason: I certify that a FTF encounter for this patient was performed on October 23, 2023 and that such encounter was related to the primary reason the patient requires home health services. The encounter was conducted in the following manner: By me as the certifying physician, DRIVE SHAFT AND STEERING POST REPAIRER, PA or By an inpatient physician, DRIVE SHAFT AND STEERING POST REPAIRER or PA during an inpatient stay who communicated findings to me, Certification And Authentication I certify that I composed the above information based on my clinical judgment relating to this patient's medical condition and, if applicable, clinical findings communicated to me by the NPP or inpatient physician who performed the FTF encounter. Name of Provider that will be monitoring home health services: Wily Starks
--- NOTE | 2023-10-23 11:42 | PTTR_ITS ---
PT Notes Visit Reasons: Altered mental status Inpatient Physical Therapy Treatment Note [facility] Date: 10/23/23 SUBJECTIVE: Yas states that she is going home today. Sister in room. OBJECTIVE: []? VITALS: ?[place] [facility] [place] Therapeutic Activities ([id number]): Direct one-on-one instruction in dynamic activities to improve functional performance. ? BED MOBILITY/TRANSFERS? Sit-stand: SBA? Stand-sit: SBA? Provided skilled cues and instruction on performance and technique throughout. [x] movement sequencing [x] turning and movement with proper form [x] Provided verbal cues for equipment management and technique [x] Patient education regarding pacing and breathing techniques to maximize activity tolerance? GAIT? Assistive Device: FWW ? Weight bearing: full Assist: CGA ? Distance:?approx 150'? Deviation: safety? ASSESSMENT:? noted some cognitive/ safety issues as she is very impulsive and lacks focus. She tends to let go of walker and reach for something. Noted some LOB due to the quick impulsive mvmt. Needs consistent cues for safety as well as managing walker for energy conservation. required one standing rest due to SOB/ fatigue. PLAN: d/c home with sister and services. TREATMENT CODE/TIME: 20 min [id number]
--- NOTE | 2023-10-23 12:14 | PDOC.CMDIS ---
Date of service: 10/23/23 Time of Service: 12:14 LACE Index Scoring Tool Questions: Length of Stay (in days): 2 Was the patient admitted via the E.D.?: Yes Comorbidities: Diabetes w/o Complication and Congestive Heart Failure E.D. Visits: 4 Answers: Total Score: 12 Risk of Readmission: High Risk Care Management Discharge Plan Reason for Hospitalization: AMS Discharge Plan: Yas will be discharged home with new home health orders for PT. She will follow up with her community providers and plan of care and transport with her son. Patient/Family Education Needs: Review discharge instructions, activity, limitations, follow up plan and discuss Ask Me Three Services Needed at Discharge: Home Health Care Services SDOH Health Related Social Needs: No Data to Display
--- NOTE | 2023-10-23 12:27 | W.PM.DS.N ---
Date of service: 10/23/23 Time of Service: 12:34 DS: Diagnosis Discharge Diagnosis (1) TIA (transient ischemic attack): Status: Acute Asessment and Plan: Patient initially presented with concerns for acute altered mental status. Teleneuro consult was obtained in the emergency department and recommended EEG and MRI. The morning after admission patient's symptoms had completely resolved. EEG was done however, was unable to obtain MRI as MRI staff had left by the time it was confirmed that patient's Endo Clip was compatible with MRI machine. However, they were able to coordinate scheduling MRI early this coming week. Given the patient's symptoms completely resolved, it was determined that she was stable for discharge home with home health services. It was also recommended that showed her MRI show any evidence of CVA, that she have close follow-up with neurology and consideration of starting Plavix as the patient is already on aspirin and high-dose statin. (2) Hypertension: Asessment and Plan: -continue home regimen (3) GERD (gastroesophageal reflux disease): Asessment and Plan: -continue home regimen (4) Sleep apnea: Asessment and Plan: -continue home CPAP (5) Diabetes mellitus type 2, controlled: Status: Chronic Asessment and Plan: -continue home regimen (6) Coronary atherosclerosis: Status: Acute Asessment and Plan: -continue home regimen (7) CHF (congestive heart failure): Status: Chronic Asessment and Plan: -continue home regimen Discharge Plan Disposition Patient Disposition: Home W/Home Health Services Condition: Good Discharge Details Reason For Visit: Altered mental status Admit Date/Time: 10/21/23 19:27 Admit Provider: Jaret Cabello Attending Provider: Jaret Cabello Primary Care Provider: Wily Starks Hospital Course Hospital Course: Patient initially presented with concerns for acute altered mental status. Teleneuro consult was obtained in the emergency department and recommended EEG and MRI. The morning after admission patient's symptoms had completely resolved. EEG was done however, was unable to obtain MRI as MRI staff had left by the time it was confirmed that patient's Endo Clip was compatible with MRI machine. However, they were able to coordinate scheduling MRI early this coming week. Given the patient's symptoms completely resolved, it was determined that she was stable for discharge home with home health services. It was also recommended that showed her MRI show any evidence of CVA, that she have close follow-up with neurology and consideration of starting Plavix as the patient is already on aspirin and high-dose statin. Home Meds and New Rx's Prescriptions: Continued magnesium L-lactate 84 mg tablet extended release 84 mg PO DAILY pantoprazole 40 mg tablet,delayed release (DR/EC) 40 mg PO HS aspirin [Adult Low Dose Aspirin] 81 MG tablet,delayed release (DR/EC) 81 mg PO HS Qty: 30 insulin aspart U-100 [Novolog FlexPen U-100 Insulin] 100 unit/mL (3 mL) insulin pen 7 unit SUBCUT QAM lamotrigine [Lamictal] 100 MG tablet 100 mg PO BID Patient Comments: Total 125 mg po bid nitroglycerin [Nitrostat] 0.4 MG tablet, sublingual 0.4 mg Sublingual Q5 MIN PRN X3 PRN (Reason: Chest Pain) Qty: 15 0RF cholecalciferol (vitamin D3) 25 mcg (1,000 unit) Capsule 1,000 unit PO DAILY lamotrigine 25 mg tablet 25 mg PO BID Patient Comments: Total 125 mg po bid spironolactone 25 mg tablet 12.5 mg PO HS Patient Comments: Take 1/2 tablet by mouth once a day insulin degludec [Tresiba FlexTouch U-100] 100 unit/mL (3 mL) insulin pen 45 unit SUBCUT DAILY Patient Comments: INJECT 45 UNITS UNDER THE SKIN ONCE A DAY IN THE MORNING Rx Instructions: 45 minutes after Novolog clopidogrel 75 mg tablet 75 mg PO HS Patient Comments: TAKE 1 TABLET EVERY DAY isosorbide mononitrate 30 mg Tablet Extended Release 24 Hr 30 mg PO HS Qty: 30 0RF rosuvastatin [Crestor] 40 MG tablet 40 mg PO QPM multivitamin [Daily Multi-Vitamin] 1 EACH tablet 1 tab PO DAILY vitamin B complex [B-Complex] 1 EACH tablet 1 tab PO DAILY alprazolam 0.5 mg Tablet 0.5 mg PO DAILY PRN (Reason: anxiety) Rx Instructions: Max 2 times per week prn for anxiety naloxone [Narcan] 4 mg/actuation [place],Non-Aerosol 4 mg intranasal PRN PRN metoprolol succinate 50 mg tablet extended release 24 hr 75 mg PO HS Patient Comments: TAKE 1 AND 1/2 TABLETS BY MOUTH DAILY torsemide 20 mg tablet See Rx Instructions .ROUTE .COMPLEX Rx Instructions: Take 2 tabs po qam and 1 tab in midafternoon; sucralfate 1 gram tablet 1 g PO PRN Patient Comments: TAKE ONE TABLET BY MOUTH FOUR TIMES A DAY NEEDED celecoxib 100 mg capsule 100 mg PO BID Patient Comments: TAKE ONE CAPSULE BY MOUTH EVERY 12 HOURS NEEDED Discharge Instructions Stand Alone Forms: Nursing Discharge Form Referrals: Wily Starks MD [Primary Care Provider] - (please call and make a follow up appointment for 1-2 weeks! ) Activity:: Activity as Tolerated Equipment/Supplies:: No Equipment Needed Diet:: As Tolerated Discharge Orders Discharge Orders: Discharge Order (Routine); Ordered 10/23/23 Ordered By: Hamlet Carr Other Ambulatory Orders: MR brain wo (Routine) Timeframe: 1 Week Facility: [facility] - Location: Laboratory Ordered By: Hamlet Carr DS: Summary Time Spent with Patient providing and/or coordinating discharge services: Greater than 30 minutes Status at Discharge Functional status at discharge: independent ambulation Overall status at discharge: patient is back to baseline Mental Status: mental status grossly normal Speech and Movement: speech and movement normal Mood: congruent mood Affect: normal affect Quality:SDOH Health Related Social Needs: No Data to Display Exam Narrative Exam Narrative: well appearing female sitting up in the chair in no acute distress, AOx4, heart RRR, lungs CTAB, abdomen soft, non-tender, non-distended, normal sensation and strength in bilateral upper and lower extremities, CN II-XII intact, occasional word finding difficulty but otherwise clear speech and thought process Psych Mental Status: mental status grossly normal Speech and Movement: speech and movement normal Mood: congruent mood Affect: normal affect DS: Data Vitals/I&O Vitals and I&O: Vital Signs Temperature 98.4 F 10/23/23 10:35 Temperature Source Temporal Artery Scan 10/23/23 10:35 Pulse 64 10/23/23 10:35 Pulse Rhythm Regular 10/23/23 09:49 Pulse 68 10/21/23 20:50 Respiratory Rate 18 10/23/23 10:35 Respiratory Effort Normal, Non-Labored 10/23/23 09:49 Respiratory Depth Normal 10/23/23 09:49 Respiratory Pattern Normal 10/23/23 09:49 Blood Pressure 107/53 L 10/23/23 10:35 Blood Pressure Mean 96 10/21/23 20:45 Blood Pressure Position Supine 10/21/23 14:25 Pulse Oximetry 94 10/23/23 10:35 Oxygen Delivery Method Room Air 10/23/23 10:35 Oxygen Flow Rate 0 10/23/23 10:35 Fraction of Inspired Oxygen (FIO2) 24 10/23/23 08:13 Pain Level 0 10/23/23 07:26 Comment RN informed of BP 10/23/23 10:35 Intake & Output 10/22/23 10/23/23 10/23/23 17:59 05:59 17:59 Intake Total 770 / 770 10 / 780 240 / 240 Output Total 1900 / 1900 1800 / 3700 600 / 600 Balance -1130 / -1130 -1790 / -2920 -360 / -360 Weight 192 lb 7.417 oz Intake: IV Oral 760 / 760 240 / 240 Output: Urine 1900 / 1900 1800 / 3700 600 / 600 Other: Urine Color Yellow Yellow Yellow Urine Appearance Clear Clear Clear Urine Odor None Normal Strong Voiding Methods Toilet Toilet Toilet PFSH All Active Problems (Updated 10/23/23 @ 12:58 by Hamlet Carr MD) TIA (transient ischemic attack) (Acute) Progressive cognitive dysfunction (Chronic) Constipation (Acute) Injury of left little finger (Acute 07/13/22) Fracture of third metatarsal bone of left foot (Acute 07/13/22) Bipolar 1 disorder (Acute) Chest pain, rule out acute myocardial infarction (Acute) Hx of CABG (Chronic) CHF (congestive heart failure) (Chronic) Diabetes mellitus type 2, controlled (Chronic) Coronary atherosclerosis (Acute) Accelerating angina (Acute) Hyperlipidemia (Acute) Sinusitis (Acute) Fatigue (Acute) Mitral insufficiency (Acute) Medical History Tobacco abuse Hypertension GERD (gastroesophageal reflux disease) Fibromyalgia Diabetes Sleep apnea Surgical History Status post carpal tunnel release of both wrists S/P mitral valve clip implantation Hx of CABG 2015 Social History Smoking/Tobacco Use Status: Current every day Tobacco Type: cigarettes Quit status: considering quitting Smoking risk assessment performed?: Yes Alcohol Intake: current Alcohol Intake frequency: a few times a week Alcohol type: wine Drug use: Never Substance use type: does not use Housing: house What type of physical activity do you participate in: other Details: cardiac rehab Do you feel safe at home: Yes Do you feel safe in your relationship?: Yes History History Para 4 Hx # Term Pregnancies Multiple births Hx # Pregnancies Ectopic pregnancies AB induced Hx Number of Living Children AB spontaneous Time Spent with Patient Time Spent with Patient: <45 minutes Time was spent: preparing to see the patient(eg.review tests), obtaining and/or reviewing separately otained hiistory, ordering medications,tests, procedures, referring, communicating with other health medicare coordinator, indepentently interpreting results, counseling the patient and care coordination
[2023-10-23] MEDS: Insulin Aspart 300 UNITS/3 ML PEN SC ×2 (12:29→12:30)
--- NOTE | 2023-10-24 20:27 | PDOC.EEG ---
Neurology EEG EEG: [facility] Department of Neurology INPATIENT EEG REPORT Date of Recordin10/22/23 Interpreting Physician: Dr. Radha Huston Reason for study: Yas Campos is a 68 year-old admitted with acute on chronic altered mental status. Current Medications: Home Medications Medication Instructions Recorded Confirmed Type lamotrigine 100 mg tablet 100 mg PO BID 04/08/14 10/21/23 History (Lamictal) nitroglycerin 0.4 mg sublingual 0.4 mg sublingual Q5 MIN PRN X3 07/01/15 10/21/23 Rx tablet (Nitrostat) PRN Chest Pain #15 tabs aspirin 81 mg tablet,delayed 81 mg PO HS #30 tab-caps 05/29/16 10/21/23 History release (Adult Low Dose Aspirin) rosuvastatin 40 mg tablet (Crestor) 40 mg PO QPM 01/03/18 10/21/23 History multivitamin (Daily Multi-Vitamin 1 tab PO DAILY 01/04/18 10/21/23 History tablet) vitamin B complex (B-Complex 1 tab PO DAILY 01/04/18 10/21/23 History tablet) alprazolam 0.5 mg tablet 0.5 mg PO DAILY PRN anxiety 11/05/18 10/21/23 History naloxone 4 mg/actuation nasal 4 mg intranasal PRN PRN 11/21/18 10/21/23 History spray (Narcan) magnesium L-lactate 84 mg 84 mg PO DAILY 12/23/18 10/21/23 History tablet,extended release pantoprazole 40 mg tablet,delayed 40 mg PO HS 04/07/19 10/21/23 History release cholecalciferol (vitamin D3) 25 1,000 unit PO DAILY 09/23/20 10/21/23 History mcg (1,000 unit) capsule metoprolol succinate 50 mg 75 mg PO HS 12/27/20 10/21/23 History tablet,extended release 24 hr torsemide 20 mg tablet See Rx Instructions .Route .COMPLEX 08/23/22 10/21/23 History insulin aspart U-100 100 unit/mL 7 unit subcut QAM 08/25/22 10/21/23 History (3 mL) subcutaneous pen (Novolog FlexPen U-100 Insulin aspart) clopidogrel 75 mg tablet 75 mg PO HS 09/06/23 10/21/23 History insulin degludec 100 unit/mL (3 45 unit subcut DAILY 09/06/23 10/21/23 History mL) subcutaneous pen (Tresiba FlexTouch U-100 insulin) lamotrigine 25 mg tablet 25 mg PO BID 09/06/23 10/21/23 History spironolactone 25 mg tablet 12.5 mg PO HS 09/06/23 10/21/23 History isosorbide mononitrate 30 mg 30 mg PO HS #30 tabs 09/07/23 10/21/23 Rx tablet,extended release 24 hr celecoxib 100 mg capsule 100 mg PO BID 10/21/23 10/21/23 History sucralfate 1 gram tablet 1 g PO PRN 10/21/23 10/21/23 History METHODS: A 21 channel digitized electroencephalogram was performed in the [facility] Med/Surg Floor or ICU. The 10/20 international system of electrode placement was used and bipolar and referential electrode montages were recorded. In addition to EEG the patient was monitored for EKG and lateral/vertical eye movements. Activation procedures of photic stimulation and hyperventilation were performed if applicable. Video was used during activation procedures and during events where applicable. The duration of the recording was 30 minutes. DESCRIPTION OF EEG: The patient was noted to be awake, drowsy, and asleep during the recording. During maximal wakefulness an 8-Hz posterior background rhythm was present which was well-modulated, symmetrical, reactive to eye opening, and of moderate voltage. With eye opening the background activity changed to a low voltage mixture of alpha, beta, and occasional theta range frequencies. Faster frequencies were present in the bilateral anterior head regions. There was a normal anterior-posterior voltage gradient. During drowsiness, there was attenuation of the posterior dominant background rhythm and vertex waves. Stage II sleep was present with symmetrical sleep spindles, K-complexes, and vertex waves. Throughout the recording, there was semi-frequent, non-rhythmic, moderate-amplitude generalized theta slowing. Activating Procedures: Photic stimulation was performed which produced a symmetrical posterior driving response at various flash frequencies. Hyperventilation was not performed. EKG: EKG revealed normal sinus rhythm. INTERPRETATION: This EEG is abnormal due to generalized, non-rhythmic theta slowing. PRIOR EEG: none CLINICAL CORRELATION: The above slowing is suggestive of a mild diffuse cerebral encephalopathy of broad differential including toxic-metabolic etiology. No focal regions of cerebral dysfunction or epileptiform activity was present. Clinical correlation is advised. Radha Huston MD Date of service: 10/22/23
[2023-10-25 09:06] LABS: Transferrin 285 mg/dL (201-352)
[2023-10-26 12:39] LABS: Lamotrigine 11.4 mcg/mL (3.0-15.0)
== END 2023-10-23 13:01 | disposition home health service (06) ==
LOC: ER 20:06 → MS 22:39
PROVIDERS: Student in an Organized Health Care Education/Training Program; Admitting Provider Internal Medicine; Emergency Provider Emergency Medicine; PCP Family Medicine; Visit Provider Internal Medicine
DX: G45.9 Transient cerebral ischemic attack, unspecified (principal); G93.40 Encephalopathy, unspecified; I11.0 Hypertensive heart disease with heart failure; E11.9 Type 2 diabetes mellitus without complications; G47.33 Obstructive sleep apnea (adult) (pediatric); Z79.4 Long term (current) use of insulin; I50.20 Unspecified systolic (congestive) heart failure; I27.81 Cor pulmonale (chronic); Z95.1 Presence of aortocoronary bypass graft; F31.9 Bipolar disorder, unspecified; I50.82 Biventricular heart failure; Z95.818 Presence of other cardiac implants and grafts; F17.210 Nicotine dependence, cigarettes, uncomplicated; E78.5 Hyperlipidemia, unspecified
CPT/HCPCS: 00123; 36415; 36416; 70496; 70498; 80048; 80053; 80175; 80307; 82805; 82962; 93005; 95819; 96372; 97162; 97530; 99285; J1650; 80320; 81003; 82140; 82728; 83540; 83550; 83735; 84439; 84443; 84466; 84484; 85025; 85045; 92523; 93010; 94660; 99222; 99233; 99238; G0378; J1815; J3490

== ENCOUNTER → 2023-10-22 08:00 | Outpatient (BNVA) | payer MEDICARE, SELFPAY | PROVIDERS: PCP Family Medicine; Referring Provider Family Medicine; Visit Provider Psychiatry & Neurology Neurology ==

== ENCOUNTER → 2023-10-25 03:54 | Outpatient (CLI) | payer MEDICARE, SELFPAY ==
--- NOTE | 2023-10-25 07:30 | DI.MRI_ITS ---
Exam(s) MR BRAIN WO EXAM: MR BRAIN WO CLINICAL HISTORY: poss. CVA/TIA,ACUTE ENCEPHALOPATHY,g93.40,f09,MENTAL DISORDER DUE TO TECHNIQUE: Multiplanar multisequence MRI of the brain was performed. COMPARISON: CT CT BRAIN NECK CTA from 10/21/2023 FINDINGS: CEREBRAL PARENCHYMA: There is no evidence of intracranial hemorrhage, mass effect, or shift of midline structures. There are no extra-axial fluid collections. Ventricles are not enlarged or shifted. There is no significant focal signal abnormality in the cerebellar hemispheres nor within the girish, m idbrain, and thalami. There are both small sub cm foci of white matter signal abnormality in the bilateral periventricular white matter consistent with chronic ischemic changes. There is no significant focal signal abnormality evident on diffusion imaging to suggest acute ischem ic event. No restricted diffusion. PITUITARY GLAND: No mass nor parasellar abnormality. No obvious abnormality in the cavernous sinuses. FLOW VOIDS: The expected flow void are noted. No evidence of obvious aneurysm nor obvious vascular ma lformation. PARANASAL SINUSES: The visualized paranasal sinuses appear unremarkable. No obvious finding ORBITS: No obvious findings. IMPRESSION: No significant acute intracranial findings on this noninfused MRI scan of the brain. There are multiple small foci of white matter signal abnormality consistent with chronic small vessel disease. No areas of restricted diffusion to suggest acute ischemic event. DATA REPOSITORY:
== END ==
PROVIDERS: PCP Family Medicine; Visit Provider Family Medicine
DX: I67.89 Other cerebrovascular disease (principal)
CPT/HCPCS: 70551

== ENCOUNTER 2023-11-02 14:22 | Inpatient (IN) | payer MEDICARE, SELFPAY ==
[2023-11-02] VITALS (25 sets, daily range): BP systolic 102–196; BP diastolic 38–94; PULSE 67–97; RESP 12–27; TEMP 35.7–36.6; O2SAT 87–98
--- NOTE | 2023-11-02 14:30 | RT.EKG_ITS ---
APPROVED REPORT Exam: Resting ECG Reason for Exam: Fall Patient Location: E HR:71 bpm ECG Measurements Heart Rate 71 AXIS MD 173 P 65 QRSd 111 QRS 26 QT 459 T 101 QTc 497 Conclusion Sinus rhythm...normal P axis, V-rate 60- 99 Inferior infarct, old...Q >35mS, II III aVF Anterior infarct, old...Q >40mS, abnormal ST-T, V2-V5 Nonspecific T abnormalities, lateral leads...T <-0.10mV, I aVL V5 V6 Normal sinus rhythm at a rate of 71 with interventricular conduction delay and a QRS of 111 ms. Norm al axis. Borderline prolonged QTc at 497 ms. T wave inversion in aVL. Poor R wave progression. Mi ld left lateral chest wall ST segment depressions. No acute injury pattern. Compared to prior dated earlier this month no acute changes. Suspect lead V2 placed slightly too far superiorly given P wav e axis.
--- NOTE | 2023-11-02 14:40 | ED.GENADUL_ITS ---
Discharge Plan Disposition Patient Disposition: Admit to [facility] Discharge Details Clinical Impression: Hypoglycemia associated with diabetes Admit Date/Time: 11/02/23 18:59 Admit Provider: Dequan Hdez Attending Provider: Dequan Hdez Primary Care Provider: Wily Starks ED Provider: Rashad Valladares Discharge Data Discharge Date/Time-TO BE ENTERED AT DEPARTURE: 11/02/23 19:38 HPI General Date/Time Provider Initiated Documentation: 11/02/23 14:23 . HPI Narrative: MDM This is a chronically ill-appearing normothermic and not tachycardic 68-year-old female with a reported prehospital confusion and fall concerning for multiple etiologies. Patient is on clopidogrel and aspirin and certainly at increased risk for intracranial hemorrhage for which she will receive a CT head. She is alert and oriented and has no acute neurological deficits so I am not suspicious for acute CVA so I did not feel that the patient required a neurological consultation. She has had no dysuria nor frequency so my suspicion is low for UTI. Her fingerstick blood glucoses at home have been ranging in the 20-200 range. She is on degludec which could be the cause of her hypoglycemia. Furthermore her hemoglobin A1c in June was 7.0% which may be too low a target for the patient given her excursions of hypoglycemia. She lives with her son but was reportedly seen standing at the top of the cellar stairs concerning for the possibility of a dangerous fall. She has a walker but reportedly will not use it. She is a daily tobacco user but not a drinker so I am not concerned for Warnicke's encephalopathy. She has been taking additional doses of her medications and does not seem safe at home. Will assess for acute electrolyte abnormalities. Patient is certainly not a good candidate for dual antiplatelet therapy given her history of falling and confusion. Differential for hypoglycemia includes insulinoma. Less likely sepsis and renal failure. No hyperkalemia to suggest adrenal insufficiency. It is certainly possible that the patient could be missing meals causing starvation to cause of her hypoglycemia. 4:06 PM Negative troponin. Negative ethanol. Slightly elevated ammonia not consistent with hyperammonemia. Mildly elevated CK not consistent with rhabdomyolysis. Normal reassuring magnesium. CBC shows no leukocytosis but does show chronic appearing normocytic anemia slightly improved compared to prior. No thrombocytopenia. Negative acetaminophen level. Comprehensive metabolic panel showing no JAXSON. No acute electrolyte abnormalities. Mild hyperglycemia but no anion gap and normal bicarbonate??not consistent with DKA. Mildly elevated alkaline phosphatase. Mild hyperbilirubinemia similar to prior. Mild hypoalbuminemia. Negative salicylates. Mildly elevated TSH with free T4 pending. 5 PM Chest x-ray showing increased interstitial markings concerning for the possibility of CHF. No bacteriuria. Normal free T4. I was in touch with Windy Edwards from care management who was able to find the patient an ACO bed in [place] at [place]. Patient would have to have a physical therapy assessment. Unfortunately this has not yet occurred. Patient had a fingerstick blood glucose in the emergency department of 51. On echocardiogram from earlier this spring patient has biventricular failure. She is not markedly volume overloaded at the moment but does have a congested chest x-ray. Will complete an ambulatory trial. proBNP appears at baseline. Will defer diuresis at the moment. Patient had a neurology consult 12 days ago. Will complete a psychiatry consult and palliative care consult. 6:23 PM I spoke with Dr. Hdez who agreed graciously to accept the patient for hospitalization. 7:42 PM I spoke to Dr. Ziegler from psychiatry who had evaluated the patient. He did feel that there was an element to dementia. He advised melatonin. He will fax complete recommendations in his note. Chronic conditions affecting the care of the patient: Confusion heart failure History obtained from an outside historian: Patient's son and daughter External record review: [facility] EMR Diagnostic interpretations performed by me: Per my independent interpretation chest x-ray shows: Increased density markings bilaterally. Per my independent interpretation EKG shows: Normal sinus rhythm at a rate of 71 with interventricular conduction delay and a QRS of 111 ms. Normal axis. Borderline prolonged QTc at 497 ms. T wave inversion in aVL. Poor R wave progression. Mild left lateral chest wall ST segment depressions. No acute injury pattern. Compared to prior dated earlier this month no acute changes. Suspect lead V2 placed slightly too far superiorly given P wave axis. ]Medications: N/A Social determinants of health affecting disposition: N/A Management discussed with:hospitalist Treatment/interventions considered: N/A Response to therapies provided: N/A HPI This is a 68-year-old female with multiple comorbidities (DM type II on insulin), HFREF, cor pulmonale, PHTN, CAD s/p CABG, severe MR s/p mitral valve clip, Bipolar disorder arrived to the emergency department via private vehicle in the setting of episodes of hypoglycemia confusion and falls. Patient has been increasingly confused. She has had restless legs and spasm in her legs. She has been taking her medications and subsequently taking multiple doses per day. She was found at home turning on the heat and turning on the gas on the stove. She was also seen standing at the top of the cellar stairs. Patient's fingerstick blood glucose following a fall last night was 55. The fall was unwitnessed and occurred at approximately 1:30 AM. Patient has been prescribed a walker but has not been using it. She does not have any diagnoses of dementia but has had decreasing memory recently. She is a daily tobacco user but denies routine ethanol and illicits. She has home prison [facility] PT and home social work. Exam General: Chronically ill-appearing in no acute distress speaking in complete sentences. Head: Normocephalic, atraumatic. Eye:[Pupils equal, round reactive to light.] Extraocular eye movements intact. No conjunctival injection. No scleral icterus. Ear, nose, mouth, throat: Grossly normal inspection. Normal voice, handling secretions normally. Neck: Trachea midline. Cardiovascular: Well-perfused distal extremities. Regular rate and rhythm Respiratory: Nonlabored respiration. Decreased breath sounds bilateral bases Gastrointestinal: Nondistended abdomen. Soft nontender. Back: No midline thoracic nor lumbar spinal tenderness. No step-offs no deformities. Musculoskeletal: No significant lower extremity pitting edema. Moving all 4 extremities spontaneously. Skin: Normal for age and race, grossly normal temperature and turgor. No acute rash. Neurologic: Alert and appropriate, no apparent acute deficits. GCS 15. Cranial nerves II through XII intact grossly. 5 out of 5 bilateral upper and lower e xtremity strength. Related Data Home Medications Medication Instructions Recorded Confirmed lamotrigine 100 mg tablet 100 mg PO BID 04/08/14 11/02/23 (Lamictal) nitroglycerin 0.4 mg sublingual 0.4 mg sublingual Q5 MIN PRN X3 07/01/15 11/02/23 tablet (Nitrostat) PRN Chest Pain #15 tabs aspirin 81 mg tablet,delayed 81 mg PO HS #30 tab-caps 05/29/16 11/02/23 release (Adult Low Dose Aspirin) rosuvastatin 40 mg tablet (Crestor) 40 mg PO QPM 01/03/18 11/02/23 multivitamin (Daily Multi-Vitamin 1 tab PO DAILY 01/04/18 11/02/23 tablet) vitamin B complex (B-Complex 1 tab PO DAILY 01/04/18 11/02/23 tablet) alprazolam 0.5 mg tablet 0.5 mg PO DAILY PRN anxiety 11/05/18 11/02/23 naloxone 4 mg/actuation nasal 4 mg intranasal PRN PRN 11/21/18 11/02/23 spray (Narcan) magnesium L-lactate 84 mg 84 mg PO DAILY 12/23/18 11/02/23 tablet,extended release pantoprazole 40 mg tablet,delayed 40 mg PO HS 04/07/19 11/02/23 release cholecalciferol (vitamin D3) 25 1,000 unit PO DAILY 09/23/20 11/02/23 mcg (1,000 unit) capsule metoprolol succinate 50 mg 75 mg PO HS 12/27/20 11/02/23 tablet,extended release 24 hr torsemide 20 mg tablet See Rx Instructions .Route .COMPLEX 08/23/22 11/02/23 insulin aspart U-100 100 unit/mL 7 unit subcut QAM 08/25/22 11/02/23 (3 mL) subcutaneous pen (Novolog FlexPen U-100 Insulin aspart) clopidogrel 75 mg tablet 75 mg PO HS 09/06/23 11/02/23 insulin degludec 100 unit/mL (3 45 unit subcut DAILY 09/06/23 11/02/23 mL) subcutaneous pen (Tresiba FlexTouch U-100 insulin) lamotrigine 25 mg tablet 25 mg PO BID 09/06/23 11/02/23 spironolactone 25 mg tablet 12.5 mg PO HS 09/06/23 11/02/23 isosorbide mononitrate 30 mg 30 mg PO HS #30 tabs 09/07/23 11/02/23 tablet,extended release 24 hr celecoxib 100 mg capsule 100 mg PO BID 10/21/23 11/02/23 sucralfate 1 gram tablet 1 g PO PRN 10/21/23 11/02/23 Previous Rx's Medication Instructions Recorded nitroglycerin 0.4 mg sublingual 0.4 mg sublingual Q5 MIN PRN X3 07/01/15 tablet (Nitrostat) PRN Chest Pain #15 tabs isosorbide mononitrate 30 mg 30 mg PO HS #30 tabs 09/07/23 tablet,extended release 24 hr Allergies Allergy/AdvReac Type Severity Reaction Status Date / Time ezetimibe [From Vytorin] Allergy Unknown Other (See Verified 11/02/23 14:40 Comment) hydrocodone Allergy Unknown Other (See Verified 11/02/23 14:40 Comment) pravastatin Allergy Unknown Other (See Verified 11/02/23 14:40 Comment) simvastatin [From Vytorin] Allergy Unknown Other (See Verified 11/02/23 14:40 Comment) ibuprofen AdvReac Severe severe Verified 11/02/23 14:40 vomiting semaglutide [From Ozempic] AdvReac Severe Other (See Verified 11/02/23 14:40 Comment) General Stated Complaint: [id number] CHRIS: 3 Course Vital Signs Vital signs: Vital Signs Temperature 36.6 C 11/02/23 14:36 Pulse 67 11/02/23 14:36 Respiratory Rate 12 11/02/23 14:36 Blood Pressure 102/68 11/02/23 14:36 Pulse Oximetry 94 11/02/23 14:36 Temperature 36.6 C 11/02/23 14:36 Temperature Source Temporal Artery Scan 11/02/23 14:36 Pulse 67 11/02/23 14:36 Respiratory Rate 12 11/02/23 14:36 Blood Pressure 102/68 11/02/23 14:36 Blood Pressure Position Sitting 11/02/23 14:36 Pulse Oximetry 94 11/02/23 14:36 Oxygen Delivery Method Room Air 11/02/23 14:36 Oxygen Flow Rate 0 11/02/23 14:36 Pain Level 2 11/02/23 14:36 Medical Decision Making Quality:SDOH Health Related Social Needs: No Data to Display PFSH All Active Problems (Updated 11/03/23 @ 00:53 by Dequan Hdez) Sleep apnea (Chronic) Hypoglycemia associated with diabetes (Acute) TIA (transient ischemic attack) (Acute) Progressive cognitive dysfunction (Chronic) Constipation (Acute) Injury of left little finger (Acute 07/13/22) Fracture of third metatarsal bone of left foot (Acute 07/13/22) Bipolar 1 disorder (Chronic) Chest pain, rule out acute myocardial infarction (Acute) Hx of CABG (Chronic) CHF (congestive heart failure) (Chronic) Diabetes mellitus type 2, controlled (Chronic) Coronary atherosclerosis (Acute) Accelerating angina (Acute) Hyperlipidemia (Acute) Sinusitis (Acute) Fatigue (Acute) Mitral insufficiency (Acute) Medical History Tobacco abuse Hypertension GERD (gastroesophageal reflux disease) Fibromyalgia Diabetes Sleep apnea Surgical History Status post carpal tunnel release of both wrists S/P mitral valve clip implantation Hx of CABG 2016 Social History Smoking/Tobacco Use Status: Current-Occasional Tobacco Type: cigarettes Quit status: considering quitting Smoking risk assessment performed?: Yes Alcohol Intake: former Drug use: Never Substance use type: does not use Housing: house What type of physical activity do you participate in: other Details: cardiac rehab Do you feel safe at home: Yes Do you feel safe in your relationship?: Yes History History Para 4 Hx # Term Pregnancies Multiple births Hx # Pregnancies Ectopic pregnancies AB induced Hx Number of Living Children AB spontaneous
[2023-11-02 15:16] LABS: Abs Immature Grans 0.04 10^3/uL (0.0-0.06); Absolute Basophil Count 0.03 10^3/uL (0.0-0.2); Absolute Lymphocyte Count 1.55 10^3/uL (1.2-3.4); Absolute Monocyte Count 1.25 10^3/uL (0.1-0.8); Absolute Neutrophil Count 5.62 10^3/uL (1.2-6.7); Basophils % 0.4 %; HCT 29.3 % (36.0-46.0); HGB 8.8 g/dL (11.2-15.7); Immature Grans % 0.5 %; Lymphocytes % 18.3 %; MCH 26.3 pg (27.0-33.0); MCV 88 fL (80-95); MPV 10.2 fL (8.0-11.0); Monocytes % 14.7 %; Neutrophils % 66.1 %; Nucleated RBC 0.2 % (0.0-0.3); Platelet Count 305 10^3/uL (130-400); RBC 3.34 10^6/uL (3.93-5.22); RDW 17.5 % (11.7-14.6); RDW-SD 55.6 fL; WBC 8.49 10^3/uL (4.4-10.8)
[2023-11-02 15:28] LABS: Ammonia 35 umol/L (11-32)
[2023-11-02 15:41] LABS: ALT 38 U/L (14-59); AST 60 U/L (15-37); Alkaline Phosphatase 284 U/L (46-116); Anion Gap 10.8 mmol/L (3-11); BUN 35 mg/dL (7-18); Bilirubin, Total 1.1 mg/dL (0.2-1.0); CO2 27.2 mmol/L (21.0-32.0); CREATININE 1.3 mg/dL (0.55-1.02); Calcium 8.9 mg/dL (8.5-10.1); Chloride 101 mmol/L (98-107); Creatine Kinase 553 U/L (26-192); Estimated GFR 45.35 (mL/min/1.73m2); Glucose 116 mg/dL (74-106); Magnesium 1.9 mg/dL (1.8-2.4); Potassium 3.5 mmol/L (3.5-5.1); Sodium 139 mmol/L (136-145); Total Protein 8.2 g/dL (6.4-8.2); Troponin I < 50 ng/L (< or =60)
[2023-11-02 15:44] LABS: ETHANOL BLOOD < 3.0 mg/dL (<10)
[2023-11-02 15:58] LABS: Salicylate < 2.8 mg/dL (<2.8)
[2023-11-02 15:59] LABS: Acetaminophen < 2 ug/mL (10-30)
[2023-11-02 16:00] LABS: Bilirubin Negative (Negative); Blood Trace-intact (Negative); Clarity Clear (Clear); Glucose Negative (Negative); Ketones Negative (Negative); Leukocyte Esterase Negative (Negative); Nitrite Negative (Negative); Specific Gravity 1.015 (1.005-1.025); pH 6.5 (5-8)
[2023-11-02 16:07] LABS: FREE T4 1.17 ng/dL (0.76-1.46)
--- NOTE | 2023-11-02 16:25 | DI.CT_ITS ---
Exam(s) CT HEAD WO EXAM: CT HEAD WO CLINICAL HISTORY: Fall. TECHNIQUE: Imaging Protocol: Axial computed tomography images with coronal and sagittal reformatted images were created and reviewed COMPARISON: CT CT BRAIN NECK CTA from 10/21/2023 FINDINGS: Ventricles and Extra axial spaces: Normal in size and morphology for the patient's age. Hemorrhage: None. Cerebral parenchyma: No evidence of acute infarct or mass. Mild atrophy. Mild white matter changes of small vessel disease. Midline shift: None. Brainstem/Cerebellum: Normal. Calvarium: Normal. Visualized Paranasal sinuses:Clear. Mastoids: Clear. Soft Tissues: Unremarkable. ORBITS: Unremarkable. PITUITARY: Not enlarged. IMPRESSION: No acute intracranial process. RADIATION DOSE DELIVERED: 650.75mGy.cm Total DLP DATA REPOSITORY: All CT scans at this facility are submitted to the National Radiology Data Registry (NRDR) Dose Index Registry (DIR) with the [employer] (A[employer]). RADIATION OPTIMIZATION: All CT scans at this facility use at least one of these dose optimization te chniques: automated exposure control; mA and/or kV adjustment per patient size (includes targeted exa ms where dose is matched to clinical indication); or iterative reconstruction.
--- NOTE | 2023-11-02 16:31 | DI.RAD_ITS ---
Exam(s) XR CHEST 1V IN DI DEPT EXAM: XR CHEST 1V IN DI DEPT CLINICAL HISTORY: Fall TECHNIQUE: 2D digital imaging was performed. COMPARISON: CR XR PORTABLE CHEST AP from 10/19/2022 CR XR PORTABLE CHEST AP from 09/06/2023 FINDINGS: LUNGS: Vascular prominence and increased interstitial changes. Mild CHF not excluded. No pleural ab normality seen. HEART: Markedly enlarged. Status post CABG. AORTA: Normal diameter. BONES: Unremarkable for age. Spine mainly obscured. Soft tissues: Unremarkable. IMPRESSION: Cardiomegaly and question mild CHF. DATA REPOSITORY: RADIATION DOSE DELIVERED:
[2023-11-02 16:36] LABS: Bacteria Negative HPF (Negative); C & S Indicated? No; Casts 3-5 Hyaline LPF (Negative); Crystals Negative HPF (Negative); Epithelial Cells Few HPF (Negative); Mucus Negative (Negative); Other Cells Rare Transitional (Negative); RBC 0-2 HPF (0-2); WBC 0-2 HPF (0-5)
[2023-11-02 17:04] LABS: NT-proBNP 2153 pg/mL (<300)
--- NOTE | 2023-11-02 18:50 | W.PM.HP.N ---
Date of service: 11/02/23 Time of Service: 18:50 Assessment and Plan Assessment and plan (1) Hypoglycemia associated with diabetes: Start date: 11/02/23 Status: Acute Assessment and plan: This is a 68-year-old lady brought to the hospital by private car with her son noticing increased confusion with hypoglycemic episodes at home and falls. Patient did fall and hurt her right ankle will be x-ray but it does not appear to be acutely injured she is a vague historian. She did respond to treatment of her hypoglycemia but had recurrent episodes while in the ED and was admitted for observation to treat these episodes with maintenance of IV access and patient eating well. Patient is on Tresiba at this can be slowly clear and with patient noncompliance is uncertain what her dosing has been. Patient bipolar disease also makes it difficult to assess her mentation the patient wandering in conversation. Long-term her son needs to increase supervision at home. She is a full code. (2) Diabetes mellitus type 2, controlled: Status: Chronic Assessment and plan: On Tresiba at home with current dosing. She also takes Jardiance at home. Hold Tresiba and monitor with sliding scale corrective insulin and glucometers before meals and at bedtime. 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 Continue medical regimen while hospitalized and trend labs. Qualifiers: Heart failure type: biventricular Qualified Code(s): I50.82 - Biventricular heart failure (4) Progressive cognitive dysfunction: Status: Chronic Assessment and plan: Patient may have underlying dementia but also has Bipolar disease Type I. (5) Bipolar 1 disorder: Status: Chronic Assessment and plan: Continue outpatient medications while hospitalized. Increase supervision, medical compliance. (6) Sleep apnea: Status: Chronic Assessment and plan: Patient will be treated with CPAP on home settings while hospitalized. Compliance may be an issue. Qualifiers: Sleep apnea type: obstructive Qualified Code(s): G47.33 - Obstructive sleep apnea (adult) (pediatric) History of Present Illness History of Present Illness Chief Complaint: Increased confusion with fall Narrative: This is a 68-year-old female patient who was admitted recently for TIA and had symptoms completely resolved being discharged home just after first week of October 2023. She does live with her son who just recently was trying to control her medical regimen because of the patient miss-dosing several medications. In the ED she was found to be confused with a fall but although clearing her confusion she did have persistent hypoglycemia which was symptomatic. The patient is a poor historian and wonders a conversation though she is alert and oriented x [address]. She has significant psychiatric disease and Bipolar disease Type I. Patient will be admitted for further management of her diabetes being on Tresiba which can clear slowly and to observe for recurrent hypoglycemia. She will also be on a sliding scale with glucometers ACHS. Her other medical therapies will be continued as at home. Long-term patient needs better supervision at home of her medical regimen and compliance with dosing. She is a full code Review of Systems Narrative: 13 point review of systems positive for right ankle pain twisting 3 weeks ago and has gotten progressively so would not respond eyes but not swelling or bruising the patient continued to walk on the ankle without assistive device, otherwise unrevealing or stable. Patient is a poor historian. PFSH All Active Problems (Updated 11/03/23 @ 00:53 by Dequan Hdez) Sleep apnea (Chronic) Hypoglycemia associated with diabetes (Acute) TIA (transient ischemic attack) (Acute) Progressive cognitive dysfunction (Chronic) Constipation (Acute) Injury of left little finger (Acute 07/13/22) Fracture of third metatarsal bone of left foot (Acute 07/13/22) Bipolar 1 disorder (Chronic) Chest pain, rule out acute myocardial infarction (Acute) Hx of CABG (Chronic) CHF (congestive heart failure) (Chronic) Diabetes mellitus type 2, controlled (Chronic) Coronary atherosclerosis (Acute) Accelerating angina (Acute) Hyperlipidemia (Acute) Sinusitis (Acute) Fatigue (Acute) Mitral insufficiency (Acute) Medical History Tobacco abuse Hypertension GERD (gastroesophageal reflux disease) Fibromyalgia Diabetes Sleep apnea Surgical History Status post carpal tunnel release of both wrists S/P mitral valve clip implantation Hx of CABG 2015 Social History Smoking/Tobacco Use Status: Current-Occasional Tobacco Type: cigarettes Quit status: considering quitting Smoking risk assessment performed?: Yes Alcohol Intake: former Drug use: Never Substance use type: does not use Housing: house What type of physical activity do you participate in: other Details: cardiac rehab Do you feel safe at home: Yes Do you feel safe in your relationship?: Yes History History Para 4 Hx # Term Pregnancies Multiple births Hx # Pregnancies Ectopic pregnancies AB induced Hx Number of Living Children AB spontaneous Meds Allergies and Home Medications Allergies Allergy/AdvReac Type Severity Reaction Status Date / Time ezetimibe [From Vytorin] Allergy Unknown Other (See Verified 11/02/23 14:40 Comment) hydrocodone Allergy Unknown Other (See Verified 11/02/23 14:40 Comment) pravastatin Allergy Unknown Other (See Verified 11/02/23 14:40 Comment) simvastatin [From Vytorin] Allergy Unknown Other (See Verified 11/02/23 14:40 Comment) ibuprofen AdvReac Severe severe Verified 11/02/23 14:40 vomiting semaglutide [From Ozempic] AdvReac Severe Other (See Verified 11/02/23 14:40 Comment) Home Medications Medication Instructions Recorded Confirmed Type lamotrigine 100 mg tablet 100 mg PO BID 04/08/14 11/02/23 History (Lamictal) nitroglycerin 0.4 mg sublingual 0.4 mg sublingual Q5 MIN PRN X3 07/01/15 11/02/23 Rx tablet (Nitrostat) PRN Chest Pain #15 tabs aspirin 81 mg tablet,delayed 81 mg PO HS #30 tab-caps 05/29/16 11/02/23 History release (Adult Low Dose Aspirin) rosuvastatin 40 mg tablet (Crestor) 40 mg PO QPM 01/03/18 11/02/23 History multivitamin (Daily Multi-Vitamin 1 tab PO DAILY 01/04/18 11/02/23 History tablet) vitamin B complex (B-Complex 1 tab PO DAILY 01/04/18 11/02/23 History tablet) alprazolam 0.5 mg tablet 0.5 mg PO DAILY PRN anxiety 11/05/18 11/02/23 History naloxone 4 mg/actuation nasal 4 mg intranasal PRN PRN 11/21/18 11/02/23 History spray (Narcan) magnesium L-lactate 84 mg 84 mg PO DAILY 12/23/18 11/02/23 History tablet,extended release pantoprazole 40 mg tablet,delayed 40 mg PO HS 04/07/19 11/02/23 History release cholecalciferol (vitamin D3) 25 1,000 unit PO DAILY 09/23/20 11/02/23 History mcg (1,000 unit) capsule metoprolol succinate 50 mg 75 mg PO HS 12/27/20 11/02/23 History tablet,extended release 24 hr torsemide 20 mg tablet See Rx Instructions .Route .COMPLEX 08/23/22 11/02/23 History insulin aspart U-100 100 unit/mL 7 unit subcut QAM 08/25/22 11/02/23 History (3 mL) subcutaneous pen (Novolog FlexPen U-100 Insulin aspart) clopidogrel 75 mg tablet 75 mg PO HS 09/06/23 11/02/23 History insulin degludec 100 unit/mL (3 45 unit subcut DAILY 09/06/23 11/02/23 History mL) subcutaneous pen (Tresiba FlexTouch U-100 insulin) lamotrigine 25 mg tablet 25 mg PO BID 09/06/23 11/02/23 History spironolactone 25 mg tablet 12.5 mg PO HS 09/06/23 11/02/23 History isosorbide mononitrate 30 mg 30 mg PO HS #30 tabs 09/07/23 11/02/23 Rx tablet,extended release 24 hr celecoxib 100 mg capsule 100 mg PO BID 10/21/23 11/02/23 History sucralfate 1 gram tablet 1 g PO PRN 10/21/23 11/02/23 History Exam Narrative Exam Narrative: General: Patient is obese lying in bed almost negative with inappropriate behavior when approached. She appears euphoric but is cooperative. She does know that she is in the hospital and recognizes me as her provider while hospitalized. She is less oriented to time. She is in no acute distress. At times she has aged with her speech and stares forward not responding quickly. She does not lose consciousness. HEENT: Normocephalic, eyes with pupils equal react light symmetrically, extraocular movement intact and sclera anicteric. Oropharynx with dry mucosa. Neck: Supple without JVD. Back: Normal posture, without CVA tenderness. Lungs: Clear to auscultation percussion. Breast: Exam deferred. Heart: Regular rate and rhythm with no visible murmur or gallop. Abdomen: Obese, soft nontender No palpable hepatosplenomegaly. No guarding or rebound. Bowel sounds positive all quadrants. Detailed/medical exam deferred. Extremities: Without clubbing, cyanosis or pitting edema. Peripheral pulses intact. Right ankle is non-swollen full range of motion with no bruising noted and ankle is nontender to palpation. Skin: Normal color, warm and dry. Neuro: Cranial nerves II through XII grossly intact, no focal motor deficits. No tremor. Psych: Euphoric affect, normal mood. No abnormal thought processes manifested. Remote memory intact with recent memory somewhat wandering but grossly intact. Results Imaging Imaging Studies: EXAM: XR CHEST 1V IN DI DEPT CLINICAL HISTORY: Fall TECHNIQUE: 2D digital imaging was performed. COMPARISON: CR XR PORTABLE CHEST AP from 10/19/2022 CR XR PORTABLE CHEST AP from 09/06/2023 FINDINGS: LUNGS: Vascular prominence and increased interstitial changes. Mild CHF not excluded. No pleural abnormality seen. HEART: Markedly enlarged. Status post CABG. AORTA: Normal diameter. BONES: Unremarkable for age. Spine mainly obscured. Soft tissues: Unremarkable. IMPRESSION: Cardiomegaly and question mild CHF. EXAM: CT HEAD WO CLINICAL HISTORY: Fall. TECHNIQUE: Imaging Protocol: Axial computed tomography images with coronal and sagittal reformatted images were created and reviewed COMPARISON: CT CT BRAIN NECK CTA from 10/21/2023 FINDINGS: Ventricles and Extra axial spaces: Normal in size and morphology for the patient's age. Hemorrhage: None. Cerebral parenchyma: No evidence of acute infarct or mass. Mild atrophy. Mild white matter changes of small vessel disease. Midline shift: None. Brainstem/Cerebellum: Normal. Calvarium: Normal. Visualized Paranasal sinuses:Clear. Mastoids: Clear. Soft Tissues: Unremarkable. ORBITS: Unremarkable. PITUITARY: Not enlarged. IMPRESSION: No acute intracranial process. Labs 11/02/23 15:08 11/02/23 15:08 Labs: Laboratory Results - last 24 hr 11/02/23 11/02/23 15:08 15:52 WBC 8.49 RBC 3.34 L Hgb 8.8 L Hct 29.3 L MCV 88 MCH 26.3 L MCHC 30.0 L RDW 17.5 H Plt Count 305 MPV 10.2 Immature Gran % 0.5 Neutrophils % 66.1 Lymphocytes % 18.3 Monocytes % 14.7 Eosinophils % 0.0 Basophils % 0.4 Nucleated RBC % 0.2 Absolute Neutrophils 5.62 Absolute Lymphocytes 1.55 Absolute Monocytes 1.25 H Absolute Eosinophils 0.00 Absolute Basophils 0.03 Sodium 139 Potassium 3.5 Chloride 101 Carbon Dioxide 27.2 Anion Gap 10.8 BUN 35 H Creatinine 1.3 H Est GFR (CKD-EPI 2020) 45.35 Glucose 116 H Calcium 8.9 Magnesium 1.9 Total Bilirubin 1.1 H AST 60 H ALT 38 Alkaline Phosphatase 284 H Ammonia 35 H Creatine Kinase 553 H Troponin I < 50 NT-Pro-B Natriuret Pep 2153 H Total Protein 8.2 Albumin 3.0 L TSH 12.50 H Free T4 1.17 Urine Color Yellow Urine Clarity Clear Urine pH 6.5 Ur Specific [place] 1.015 Urine Protein Negative Urine Ketones Negative Urine Blood Trace-intact H Urine Nitrite Negative Urine Bilirubin Negative Urine Urobilinogen 1.0 H Ur Leukocyte Esterase Negative Urine RBC 0-2 Urine WBC 0-2 Ur Epithelial Cells Few Urine Crystals Negative Urine Bacteria Negative Urine Casts 3-5 Hyaline Urine Mucus Negative Urine Other Rare Transitional Ur Culture Indicated? No Urine Glucose Negative Salicylates < 2.8 Acetaminophen < 2 Ethyl Alcohol < 3.0 Last Vital Signs Temp 36.6 C 11/02/23 14:36 Pulse 69 11/02/23 17:46 Resp 19 11/02/23 17:50 BP 115/38 L 11/02/23 17:46 Pulse Ox 98 11/02/23 17:20 Time Spent Time spent with Patient: >75 minutes Time was spent: preparing to see the patient(eg.review tests), obtaining and/or reviewing separately otained hiistory, ordering medications,tests, procedures, indepentently interpreting results and care coordination
--- NOTE | 2023-11-02 19:02 | CMPROGNOTE_ITS ---
Date of service: 11/02/23 Time of Service: 19:02 Care Management Progress Note Progress Note Text Progress Note Text: Yas was sitting up on a stretcher in the ED when CM met with her; she was receiving support from a nurse and an DRIVE IN TELLER to help her eat, as it was reported that her blood sugar was low. Yas was able to identify her son, Hamlet, and her sister, Ai, who were in the room visiting. Yas was not able to provide any additional information, as her mental status appeared altered for the duration of the visit. Hamlet and Ai discussed how things have been going at home, since Yas was released from the hospital about two weeks ago. Hamlet works signal timer, so is not available during the day. Ai is currently staying with them to help Yas, and is there with her all of the time. They stated that Yas has fallen at home, out of bed; that she wonders and is exhibiting behavior that they do not feel is safe, such as turning on the stove and walking away, or standing at the top of the stairs, appearing confused and unsteady on her feet. They stated that she needs someone with her all of the time, and they expressed frustration because they feel that they cannot provide the support she needs. Yas was sent home with RN, PT, PARK GUIDE; CM reached out to who stated that nursing has been out to the home three times, PARK GUIDE was there yesterday, and PT was planning on going out tomorrow. During the meeting with the adoption social worker for , a shelter ELA application was filled out. CM expressed the importance of Hamlet and Ai supporting Yas through this process. The adoption social worker also placed a referral to [facility] for options counseling. Hamlet and Ai do not feel that they are equipped to take care of Yas at this time; CM discussed the limitations in the community, which are often insurance driven. Hamlet stated that he spoke to Yas's PCP this afternoon, who counseled him to bring her to the ED and inform staff that she is not safe at home. Yas did not have a three night stay on her recent admission, and PT recommended PT at that time, therefore she did not qualify for SNF. The ED provider has requested a PT evaluation, as it appears Yas has continued to decline at home. CM reached out to admissions for [facility], who stated that [facility] has [facility] waiver beds available. CM discussed this with Yas's family, who are agreeable to a referral being sent. They would prefer that she is closer, but are happy to have the support with Yas, and if that is the only option, they will agree to her going. CM discussed the limitations inherent with a short term rehab stay, indicating that [facility] will only pay 100% for the first 20 days, and 80% for days 21-100. They expressed understanding of this being a short term placement. Ai stated that she is happy to help at home, but does not feel that she can do it alone, and would benefit from caregiver support, upon her discharge from SNF. This may be dependent on her being approved for termination clerk ELA. Per MD, Yas will likely be admitted to [facility] due to her current medical status. CM will meet with Yas and her family to continue to support discharge planning considerations. SDOH(Care Management) Screening Will the Patient Participate in the Screening?: Yes Do you worry about having a steady place to live?: no Problems where you live: no known problems In the past 12 months, have you had to go without electric, gas, oil or water in your home?: no Have you or anyone in your house had to go without enough food to eat?: no Has lack of transportation kept you from medical appointments or from doing things needed for daily living?: no Has anyone in your support network made you feel unsafe for any reason?: no
--- NOTE | 2023-11-02 19:19 | PSYCO_ITS ---
Date of service: 11/02/23 Time of Service: 19:19 Summary Note Array Telepsych Name: Yas Campos?: 1955 Date?and?Time: 11/02/2023 6:57:13 PM Location of the patient: ED?Location of the doctor: [facility] Length of consult: 30 mins This evaluation was conducted via video telepsychiatry with the assistance of onsite staff Reason for consult: confusion/agitation Requested by: MARIA C History of Present Illness: 68-year-old female with multiple comorbidities (DM type II on insulin), HFREF, cor pulmonale, PHTN, CAD s/p CABG, severe MR s/p mitral valve clip, Bipolar disorder arrived to the emergency department via private vehicle in the setting of episodes of hypoglycemia confusion and falls. Per chart review She has been taking her medications and subsequently taking multiple doses per day. She was found at home turning on the heat and turning on the gas on the stove. She was also seen standing at the top of the cellar stairs. Patient was seen and evaluated. She is noted to be Alert but not oriented to time, person. She is able to tell me that she is in the hospital but does not know why, she states that the year is 2003, and unable tell me current president. Patient is not a good historian. She is able to tell me that she is living with her son. Collateral was obtained from her son who states that patient has been having memory issues for last 2 months, she is forgetting her sons age, she is forgetting where she left things, she is asking for a sandwich and when its made she tells him that she never asked for it. She has not been sleeping well at night. son feels that he is unable to take care of her due to her memory issues. No prior hx of dementia. She does have bipolar disorder and takes lamictal. Collateral Contacted: Yes?Collateral name:Jonatan Campos?Collateral phone number:? [phone]?Collateral relationship to the patient:?son Sleep issues?: Yes?Sleep Quantity:?poor?Sleep Quality:?poor Psychiatric History/Treatment History:? Past diagnoses: none Hospitalizations: No Current Treatment:Yes?Medication management:?Yes?Medications:?lamictal 125 mg bid?Therapy: Suicide Assessment: PSS-3: 1) Over the past 2 weeks have you felt down, depressed or hopeless??No? 2) Over the past 2 weeks have you had thoughts of killing yourself??No 3) Have you ever in your life attempted to kill yourself??No Within the past 6 months??? [facility] Safety Assessment: Risk Factors Stressors: none Attempts/Self-injury: No Impulsivity:No Drug/Alcohol History:No Trauma History:No Access to firearms:No HI/Violence/Property destruction:No Legal: No Family Psych History:No Family History of suicide:No Protective Factors:? Can handle stress well??No ? Denominational??No ? External: Social supports/ Therapeutic relationships: Yes?Description:?son Relationship history: single Living situation: lives with son Employment: No Education: Responsibility to family/children/work: No Future orientation:No Health History: Medical History: see hpi Medications & Freq: lamictal 125 mg bid Allergies: Mental Status Exam: Appearance and Attire:?Good eye contact Psychomotor agitation:?No abnormality Attitude and behavior:?Guarded Speech:?Slow Mood:?Euthymic Affect:?Constricted Thought process:?Coherent Thought content:?No abnormality Perception:?none Intel:?Low average Abstract:?[place] Language:?Impaired to Naming Orientation:?Oriented to person, Oriented to place Sense:?Distractible Knowledge:?Mild impairment Memory:?Impaired to Recent recall (3 min), Impaired to Remote recall Insight:?Lack of awareness of problems Judgement:?Impaired in interactions with others, Impaired in response and decision making Gait:?No abnormality Impression/Risk Assessment: Current Suicide Risk Elevated??No ? Current Violence Risk Elevated??No ? Issues with ability to care for self??Yes ? Summary: Based on evaluation patient appears to have dementia as she has been having progressive memory loss for last 2 months. At this time she is not sleeping well, she is at times agitated at home. Patient is being admitted to medicine for hypoglycemia. Diagnosis: F02.80 Dementia in other diseases classified elsewhere without behavioral disturbance CPT Codes: 23147 - Psychiatric Diagnostic Evaluation with Medical Services Treatment Plan:? General: Level of Care: Per Primary team. Patient may require SW assistance as son does not feel comfortable taking care of her. Psychiatric Clearance: Yes? Observation level ? 1:1 needed?: No Pharmacological: Continue Lamictal 125 mg bid for Bipolar disorder, start patient on Melatonin 3 mg HS for insomnia, Aricept 10 mg HS for memory loss. If patient is agitated can give Zyprexa 2.5 mg IM/PO Q6hrs prn. Patient psychotic?No Therapy: Follow up needed while in the hospital?: No Discussed plan with onsite seo team lead: Yes Who Rashad Michaud MD Other: Rashid Ziegler MD
[2023-11-02] MEDS: Celecoxib 100 MG CAP PO (21:24)
[2023-11-02] MEDS: Metoprolol CR 50 MG TABCR 75 MG PO (21:24)
[2023-11-02] MEDS: Isosorbide Mononitrate 30 MG TABCR PO (21:25)
[2023-11-02] MEDS: Clopidogrel 75 MG TAB PO (21:26)
[2023-11-02] MEDS: Pantoprazole 40 MG TABCR PO (21:26)
[2023-11-02] MEDS: lamoTRIgine 100 MG TAB PO (21:26)
[2023-11-02] MEDS: lamoTRIgine 25 MG TAB PO (21:26)
[2023-11-02] MEDS: Aspirin E.C. 81 MG TABEC PO (21:26)
[2023-11-02] MEDS: Normal Saline Flush 10 ML SYR IVP (21:27)
[2023-11-02] MEDS: Spironolactone 25 MG TAB 12.5 MG PO (21:27)
[2023-11-02] MEDS: Enoxaparin 40 MG/0.4 ML SYR SC (21:28)
[2023-11-02 21:44] LABS: Troponin I < 50 ng/L (< or =60)
[2023-11-02 23:17] LABS: Troponin I < 50 ng/L (< or =60)
--- NOTE | 2023-11-03 | DI.RAD_ITS ---
Exam(s) XR ANKLE RT COMPLETE EXAM: XR ANKLE RT COMPLETE CLINICAL HISTORY: Swollen ext malleolar, pain with mobilization. TECHNIQUE: 2D digital imaging was performed. Three views. COMPARISON: CR XR FOOT LT COMPLETE from 07/23/2022 CR XR FOOT LT COMPLETE from 07/30/2022 FINDINGS: BONES: No acute fracture is present. There are smoothly marginated bony densities beneath both malle jennie through related to old trauma. No bony destructive lesion is seen. Plantar calcaneal spur. Do rsal talar beak. JOINTS: The ankle mortise is normally aligned. Tibiotalar joint space is maintained. There are deg enerative changes in the intertarsal region. SOFT TISSUE: Soft tissue swelling. Mild calcification in distal Achilles tendon. IMPRESSION: Soft tissue swelling. Degenerative changes and heel spur. DATA REPOSITORY: RADIATION DOSE DELIVERED:
[2023-11-03 02:35] VITALS: BP 114/62; PULSE 62; RESP 20; TEMP 35.4; O2SAT 97
[2023-11-03] MEDS: Dextrose 50%-Water 25 GM/50 ML SYR IVP ×3 (02:50→05:17)
[2023-11-03] MEDS: Normal Saline Flush 10 ML SYR IVP ×3 (05:29→20:06)
[2023-11-03 06:59] LABS: HCT 29.6 % (36.0-46.0); HGB 8.7 g/dL (11.2-15.7); MCH 26.1 pg (27.0-33.0); MCHC 29.4 % (32.0-36.0); MCV 89 fL (80-95); MPV 10.5 fL (8.0-11.0); Platelet Count 295 10^3/uL (130-400); RBC 3.33 10^6/uL (3.93-5.22); RDW 17.4 % (11.7-14.6); RDW-SD 56.3 fL
[2023-11-03 07:17] LABS: ALT 36 U/L (14-59); AST 63 U/L (15-37); Albumin 2.7 g/dL (3.4-5.0); Alkaline Phosphatase 255 U/L (46-116); Anion Gap 7.5 mmol/L (3-11); BUN 33 mg/dL (7-18); Bilirubin, Total 0.9 mg/dL (0.2-1.0); CO2 29.5 mmol/L (21.0-32.0); CREATININE 1.3 mg/dL (0.55-1.02); Calcium 8.9 mg/dL (8.5-10.1); Chloride 105 mmol/L (98-107); Estimated GFR 45.35 (mL/min/1.73m2); Glucose 69 mg/dL (74-106); Magnesium 2.2 mg/dL (1.8-2.4); Potassium 3.5 mmol/L (3.5-5.1); Sodium 142 mmol/L (136-145); Total Protein 7.6 g/dL (6.4-8.2)
[2023-11-03] MEDS: DEXTROSE 10%-WATER 500 ML 50 ML IV (07:30)
[2023-11-03] MEDS: lamoTRIgine 100 MG TAB PO ×2 (07:33→20:03)
[2023-11-03] MEDS: Celecoxib 100 MG CAP PO ×2 (07:33→20:03)
[2023-11-03] MEDS: lamoTRIgine 25 MG TAB PO ×2 (07:33→20:05)
[2023-11-03 07:52] VITALS: BP 112/58; PULSE 63; RESP 18; TEMP 36.3; O2SAT 96
[2023-11-03] MEDS: Cholecalciferol (Vitamin D3) 1,000 UNIT TAB 1000 UNITS PO (08:26)
[2023-11-03] MEDS: Magnesium Lactate-SR 84 MG TABCR PO (08:26)
[2023-11-03] MEDS: Vitamins B Comp w/C TAB 1 TAB PO (08:26)
[2023-11-03] MEDS: Multivitamin TAB 1 TAB PO (08:27)
[2023-11-03] MEDS: Torsemide 20 MG TAB 40 MG PO (08:27)
--- NOTE | 2023-11-03 08:54 | PDOC.CMIN ---
Date of service: 11/03/23 Time of Service: 08:54 Care Management Initial Assmt Initial Assessment Reason for Hospitalization: Hypoglycemia and anemia Functional Status/Living Situation Patient Presentation: Yas was sitting up in bed when CM met with her. She recognized CM from her last hospital stay 2 weeks ago and readily engaged. She shared that her family reported that she went crazy a couple of nights ago but really doesn't remember the episode. She has been hypoglycemic with periods of confusion recently and recognizes that. When meeting with CM, it was clear that Yas had some memory issues, particularly with word finding and name recall. 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 While OLGA was meeting with Yas, her sister Mari and son Hamlet arrived and joined the conversation. They repeated much of what they discussed the day before with OLGA Temple, stating that Yas was not safe and could not be discharged home. A tentative plan was discussed yesterday for Yas to go to [facility] if she did not meet inpatient criteria. They can waive the 3 night stay required by Medicare if a patient is an ACO membe, which Yas is. She currently does meet inpatient criteria. If that remains the case until Wednesday, she would be be able to transfer to a closer facility such as [facility]. That would be the family's first choice. Yas will have a PT evaluation which will help to inform the best plan. 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 Medication compliance is likely an issue as well.) and Issues/Barriers Physical Functioning/Mobility Assistive Device: recently given a walker Advance Directives Advance Directives: Do you have an Advance Directive: Y 10/25/23 06:55 AD On File at [facility]: 10/25/23 06:55 Date Asked 11/02/23 11/02/23 14:42 AD Date Reviewed 10/29/23 10/29/23 06:39 COLST On File at [facility] No 10/25/23 06:55 COLST Date Scanned Code Status Resuscitation Status Full Code Portal Pt does not currently have a portal and education provided: No Insurance Coverage/Financial Issues Insurance: Medicare A&B ACO Member: Yes Care Team Visit Care Team Role Provider Type Wily Starks MD Primary Care Provider NON-[facility] STAFF PHYSICIAN Melanie Renteria Other Providers CAFETERIA DIRECTOR Windy Edwards Other Providers CAFETERIA DIRECTOR InPatient Clifton Pereira Other Providers OTHER Ondina Perales RN Other Providers CAFETERIA DIRECTOR Nicole Nielsen Other Providers LIFE TEACHER Kaylene Vasquez Other Providers CAFETERIA DIRECTOR Rashad Valladares MD Emergency Provider [facility] STAFF PHYSICIAN Dequan Hdez Admit Provider NON-[facility] STAFF PHYSICIAN Attending Provider Discharge Potential Discharge Needs: PCP F/U Appt Anticipated Barriers to Discharge: Bed availability Patient/Family Education Needs: Review discharge instructions, discuss Ask Me Three Transportation: Other (to be determined by disposition) Plan: Anticipate Yas may need to transfer to a SNF for short term rehab or possible to an assisted living facility. She will follow up with her community providers and plan of care. Transportation to be determined by disposition. CM will follow and continue to assess for discharge planning concerns. PFSH All Active Problems (Updated 11/03/23 @ 15:43 by Ai Wilkerson NP) Palliative care encounter (Acute) ACP (advance care planning) (Acute) Restless leg syndrome (Acute) Deficit in activities of daily living (ADL) (Acute) Sleep apnea (Chronic) Hypoglycemia associated with diabetes (Acute) TIA (transient ischemic attack) (Acute) Progressive cognitive dysfunction (Chronic) Constipation (Acute) Injury of left little finger (Acute 07/13/22) Fracture of third metatarsal bone of left foot (Acute 07/13/22) Bipolar 1 disorder (Chronic) Chest pain, rule out acute myocardial infarction (Acute) Hx of CABG (Chronic) CHF (congestive heart failure) (Chronic) Diabetes mellitus type 2, controlled (Chronic) Coronary atherosclerosis (Acute) Accelerating angina (Acute) Hyperlipidemia (Acute) Sinusitis (Acute) Fatigue (Acute) Mitral insufficiency (Acute) Medical History Tobacco abuse Hypertension GERD (gastroesophageal reflux disease) Fibromyalgia Diabetes Sleep apnea Surgical History Status post carpal tunnel release of both wrists S/P mitral valve clip implantation Hx of CABG 2015 Social History Smoking/Tobacco Use Status: Current-Occasional Tobacco Type: cigarettes Quit status: considering quitting Smoking risk assessment performed?: Yes Alcohol Intake: former Drug use: Never Substance use type: does not use Housing: house What type of physical activity do you participate in: other Details: cardiac rehab Do you feel safe at home: Yes Do you feel safe in your relationship?: Yes History History Para 4 Hx # Term Pregnancies Multiple births Hx # Pregnancies Ectopic pregnancies AB induced Hx Number of Living Children AB spontaneous SDOH(Care Management) Screening Will the Patient Participate in the Screening?: Yes Do you worry about having a steady place to live?: no Problems where you live: no known problems In the past 12 months, have you had to go without electric, gas, oil or water in your home?: no Have you or anyone in your house had to go without enough food to eat?: no Has lack of transportation kept you from medical appointments or from doing things needed for daily living?: no Has anyone in your support network made you feel unsafe for any reason?: no
--- NOTE | 2023-11-03 10:32 | NUR.NOTE ---
Nursing Note: Patient remains drowsy and confused, and is not oriented to situation. Assistance was required for feeding. Discussed with Dr. Carr. Patient's family stated this has been her mentation for at least three weeks, with related poor intake.
--- NOTE | 2023-11-03 10:34 | PT.INNT ---
PT Notes Visit Reasons: Hypoglycemia,type 2 diabetes mellitus,memory,chf Consulted Dr. Carr about need for PT evaluation as an urgent referral was sent in yesterday by ED MD Dr Valladares. Dr. carr advised on holding off on evaluation as patient is not appropriate at this time. Will a wait new referral from hospitalist when patient becomes appropriate.
--- NOTE | 2023-11-03 10:39 | PGE_ITS ---
Date of Service Date of service: 11/03/23 Time of Service: 10:39 Assessment and Plan Assessment and plan (1) Hypoglycemia associated with diabetes: Start date: 11/02/23 Status: Acute Assessment and plan: Gluc Q 2 hours Hold Tresiba or long acting insulin takes it in AM if resuming SSI coverage Stopped D10W and monitor blood glucose Gluc at 3 AM called Daughter at [phone] at 17:47 to update her as she is the primary healthcare agent and had not answer. Spoke to the family earlier (2) Diabetes mellitus type 2, controlled: Status: Chronic Assessment and plan: Tresiba on hold. She also takes Jardiance on going from home regimen. 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 MRI: Negative for stroke (5) Bipolar 1 disorder: Status: Chronic Assessment and plan: As above (6) Sleep apnea: Status: Chronic Assessment and plan: Home CPAP discussed with Dr. Carr Qualifiers: Sleep apnea type: obstructive Qualified Code(s): G47.33 - Obstructive sleep apnea (adult) (pediatric) Subjective Subjective Patient reports: no new complaints, feels better, tolerating liquids well, tolerating a regular diet, voiding w/o difficulty, flatus and afebrile; denies diarrhea, nausea, vomiting or shortness of breath Exam Narrative Exam Narrative: Constitutional The patient is in bed comfortable without acute distress HENMT: Facial structures with normal appearance Neuro:alert and oriented to self, person, place, not time . No neurological focal deficit Chest:Chest is symmetrical and normal appearance Resp: Normal respiratory pattern, speaks in full sentences, unlabored breathing, clear lung bilaterally Cardio: Tele SR HR 65 , S1, S2,bilateral radial and dorsalis pedis pulses are positive GI: Abdomen is not distended, soft and non tender, bowel sounds are present : Negative Costovertebral angle tenderness, no bladder distension Back/spine/Pelvis: No back tenderness, normal alignment Integumentary: No skin lesions or rash on exposed skin Extremities: strength 4/5 to bilateral lower Psych: RASS 0, congruent mood and normal affect. perseveration and flight of ideas observed, short term memory impairment Objective Last Vital Signs Temp 36.3 C L 11/03/23 07:52 Pulse 63 11/03/23 07:52 Resp 18 11/03/23 07:52 BP 112/58 L 11/03/23 07:52 Pulse Ox 96 11/03/23 07:52 Laboratory Results - last 24 hr 11/02/23 11/02/23 11/02/23 15:08 15:52 21:15 WBC 8.49 RBC 3.34 L Hgb 8.8 L Hct 29.3 L MCV 88 MCH 26.3 L MCHC 30.0 L RDW 17.5 H Plt Count 305 MPV 10.2 Immature Gran % 0.5 Neutrophils % 66.1 Lymphocytes % 18.3 Monocytes % 14.7 Eosinophils % 0.0 Basophils % 0.4 Nucleated RBC % 0.2 Absolute Neutrophils 5.62 Absolute Lymphocytes 1.55 Absolute Monocytes 1.25 H Absolute Eosinophils 0.00 Absolute Basophils 0.03 Sodium 139 Potassium 3.5 Chloride 101 Carbon Dioxide 27.2 Anion Gap 10.8 BUN 35 H Creatinine 1.3 H Est GFR (CKD-EPI 2020) 45.35 Glucose 116 H Calcium 8.9 Magnesium 1.9 Total Bilirubin 1.1 H AST 60 H ALT 38 Alkaline Phosphatase 284 H Ammonia 35 H Creatine Kinase 553 H Troponin I < 50 < 50 NT-Pro-B Natriuret Pep 2153 H Total Protein 8.2 Albumin 3.0 L TSH 12.50 H Free T4 1.17 Urine Color Yellow Urine Clarity Clear Urine pH 6.5 Ur Specific [place] 1.015 Urine Protein Negative Urine Ketones Negative Urine Blood Trace-intact H Urine Nitrite Negative Urine Bilirubin Negative Urine Urobilinogen 1.0 H Ur Leukocyte Esterase Negative Urine RBC 0-2 Urine WBC 0-2 Ur Epithelial Cells Few Urine Crystals Negative Urine Bacteria Negative Urine Casts 3-5 Hyaline Urine Mucus Negative Urine Other Rare Transitional Ur Culture Indicated? No Urine Glucose Negative Salicylates < 2.8 Acetaminophen < 2 Ethyl Alcohol < 3.0 11/02/23 11/03/23 22:51 05:59 WBC 8.20 RBC 3.33 L Hgb 8.7 L Hct 29.6 L MCV 89 MCH 26.1 L MCHC 29.4 L RDW 17.4 H Plt Count 295 MPV 10.5 Immature Gran % Neutrophils % Lymphocytes % Monocytes % Eosinophils % Basophils % Nucleated RBC % Absolute Neutrophils Absolute Lymphocytes Absolute Monocytes Absolute Eosinophils Absolute Basophils Sodium 142 Potassium 3.5 Chloride 105 Carbon Dioxide 29.5 Anion Gap 7.5 BUN 33 H Creatinine 1.3 H Est GFR (CKD-EPI 2020) 45.35 Glucose 69 L Calcium 8.9 Magnesium 2.2 Total Bilirubin 0.9 AST 63 H ALT 36 Alkaline Phosphatase 255 H Ammonia Creatine Kinase Troponin I < 50 NT-Pro-B Natriuret Pep Total Protein 7.6 Albumin 2.7 L TSH Free T4 Urine Color Urine Clarity Urine pH Ur Specific [place] Urine Protein Urine Ketones Urine Blood Urine Nitrite Urine Bilirubin Urine Urobilinogen Ur Leukocyte Esterase Urine RBC Urine WBC Ur Epithelial Cells Urine Crystals Urine Bacteria Urine Casts Urine Mucus Urine Other Ur Culture Indicated? Urine Glucose Salicylates Acetaminophen Ethyl Alcohol Time Spent with Patient Time Spent with Patient: >50 minutes Time was spent: preparing to see the patient(eg.review tests), obtaining and/or reviewing separately otained hiistory, ordering medications,tests, procedures, referring, communicating with other health care transition mgr, indepentently interpreting results, counseling the patient and care coordination
[2023-11-03 11:18] VITALS: BP 117/58; PULSE 63; RESP 18; TEMP 37.1; O2SAT 95
[2023-11-03] MEDS: Acetaminophen 325 MG TAB PO (11:41)
--- NOTE | 2023-11-03 13:00 | DI.MRI_ITS ---
Exam(s) MR BRAIN WO EXAM: MR BRAIN WO CLINICAL HISTORY: CVA stroke versus TIA TECHNIQUE: Multiplanar multisequence MRI of the brain was performed. COMPARISON: MR MR BRAIN WO from 10/25/[address] HEAD WO from 11/02/2023 FINDINGS: The exam is limited by motion, particularly T2 sagittal and axial sequences. VENTRICLES AND EXTRA AXIAL SPACES: Normal in size and morphology for the patient's age. MIDLINE SHIFT: None. CEREBRAL PARENCHYMA: No focus of restricted diffusion to suggest acute infarct. No space-occupying le marie identified. Mild atrophy consistent with the patient's age. Minimal scattered foci of high sign al in the white matter consistent with sequela of chronic microvascular disease. HEMORRHAGE: None. BRAINSTEM/CEREBELLUM: Normal. VISUALIZED PARANASAL SINUSES/MASTOIDS:Clear. Vasculature: Normal flow void. PITUITARY GLAND: Unremarkable. ORBITS: Unremarkable. IMPRESSION: Unremarkable MRI of the brain. DATA REPOSITORY:
--- NOTE | 2023-11-03 13:46 | PHA.REVIEW2 ---
Pharmacy Admission Review Admission Clinical Review Admission Pharmacy Review: Hypoglycemia associated with diabetes (Acute) ezetimibe [From Vytorin] Allergy (Unknown, Verified 11/02/23 14:40) Other (See Comment) hydrocodone Allergy (Unknown, Verified 11/02/23 14:40) Other (See Comment) pravastatin Allergy (Unknown, Verified 11/02/23 14:40) Other (See Comment) simvastatin [From Vytorin] Allergy (Unknown, Verified 11/02/23 14:40) Other (See Comment) ibuprofen Adverse Reaction (Severe, Verified 11/02/23 14:40) severe vomiting semaglutide [From Ozempic] Adverse Reaction (Severe, Verified 11/02/23 14:40) Other (See Comment) Resuscitation Status Full Code Height 5 ft 3 in Weight 88 kg Pharmacy Admission Review Renal Dosing Renal Dosing: BUN 33 mg/dL (7-18) H 11/03/23 05:59 Creatinine 1.3 mg/dL (0.55-1.02) H 11/03/23 05:59 Medications needing adjustments: Reviewed (CrCl 44.71 mL/min) List of meds needing interventions: Current medications are okay Anticoagulation Anticoagulation: Hgb 8.7 g/dL (11.2-15.7) L 11/03/23 05:59 Hct 29.6 % (36.0-46.0) L 11/03/23 05:59 Plt Count 295 10^3/uL (130-400) 11/03/23 05:59 Creatinine 1.3 mg/dL (0.55-1.02) H 11/03/23 05:59 DVT Prophylaxis: Reviewed Medications: Enoxaparin (40mg daily) Relevant Labs Relevant Labs: Sodium 142 mmol/L (136-145) 11/03/23 05:59 Potassium 3.5 mmol/L (3.5-5.1) 11/03/23 05:59 Chloride 105 mmol/L (98-107) 11/03/23 05:59 Magnesium 2.2 mg/dL (1.8-2.4) 11/03/23 05:59 Electrolytes, C-Reactive P, ESR: Reviewed (AST increased from 60 to 63) DM Control DM Control: Glucose 69 mg/dL (74-106) L 11/03/23 05:59 Finger Stick Blood Glucose 132 1157 Finger Stick Blood Glucose 132 1157 Finger Stick Blood Glucose 160 0955 Finger Stick Blood Glucose 160 0955 Finger Stick Blood Glucose 108 0755 Finger Stick Blood Glucose 108 0755 Finger Stick Blood Glucose 77 0717 Finger Stick Blood Glucose 77 0717 Finger Stick Blood Glucose 71 0620 Finger Stick Blood Glucose 71 0620 DM Control: Reviewed Insulin Dosing, Diabetic Medication: Has order for SS insulin and glargine 24 units at bedtime Cardiac Review Cardiac Review: Troponin I < 50 ng/L (< or =60) 11/02/23 22:51 NT-Pro-B Natriuret Pep 2153 pg/mL (<300) H 11/02/23 15:08 Blood Pressure 117/58 1118 Blood Pressure 112/58 0752 Blood Pressure 114/62 0235 BP, HR, EF%: Reviewed (BP 117/58 and HR WNL) QTc Review QTc: Reviewed (497 from 11/02/23) IV to PO Switch IV Medications: Reviewed Home Meds Home Med List reviewed: Reviewed Relevent Home Meds Not ordered & why?: Tresiba (has order for SS insulin and glargine), Narcan (PRN) Current Meds Current Medication Order Review: Reviewed
[2023-11-03] MEDS: Torsemide 20 MG TAB PO (14:44)
--- NOTE | 2023-11-03 14:55 | W.PALLCONSUL ---
Date of service: 11/03/23 Time of Service: 14:00 History of Present Illness Narrative: Ms. Sorenson is 68 y/o F currently inpt 2/2 hypoglycemia w/AMS; PMHx sig for CAD, MVR (post clip), CHF, HTN, PHTN, bipolar disorder, new dx of vascular dementia; present today son Hamlet, sister Ai, via telephone daughter/[facility] Course: presented to ED on 10/20 w/AMS and changes in speech, tele-neuro consult recommend MRI, EEG, infectious work-up, admitted for work-up, CTA brain showed white matter changes consistent w/small vessel ischemic changes; discharged on 10/22 after returning to baseline w/HH services; on 11/01 re-presented to ED w/confusion, fall and found to be hypoglycemic; psych consult indicates element of dementia; previous PT and [employer] consults from initial presentation indicate HH services PT/[employer]; pending nutrition consult; psych consult states element of dementia; met w/CM prior to PC visit, reviewed plan for discharge to rehab d/t safety concerns at home per staff: increased confusion in AM on wakening, did not have coordination to independently eat, needed feed assist, able to eat full lunch independently; Yas is c/o RLE ankle pain, around 2 wks, thinks she rolled her ankle, cannot recall; hurts more w/weight bearing - per family, no known injury, no swelling that they know of, only thing they can think of is during initial ED she was kicking side rail, she's been complaining of this for 2 weeks, perseverates over it often, apap w/no effect Yas's preference is to return home, above all else. She does not recall being unsafe at home. She agrees that her AD states Anel and Hamlet as HCAs, that she wants all LST, including CPR, as long as able to care for self and live without incapacitating pain. report from Hamlet and Ai - Pain, as above - Appetite/DM: been reduced, but for a long time, like years, she is eating every day, smoothie for breakfast, lunch and dinner with them. Today's lunch is the most she's had per meal in a long time. Her continuous glucose sensor has been off up to 40 points from finger sticks, which has been concerning for them. Her BS historically were stable and going well, however more recently she has been having drops out of no wear. She'll be at 100, then eat meal and be at 160, and then an hour later be at 60. She does appear to be confused and lack coordination more often, potentially w/BS changes, need more correlation - Able to use bathroom safely in home, had been making it to toilet at home - Nausea: was intermittently c/o nausea, however has not in 2 weeks - Activity: she is mostly sedentary, moving from bed to chair, staying there all day, and then returning to bed. She does not use her walker regularly. She has had some falls most recently. RLE ankle pain as above; weakness in legs, knees buckle/give out; aware that press feeder strength is even based on neuro evals, but she keeps dropping things/losing hand press feeder - RLS: increased over mos increased jerking movement, bee sting/itching pains in BLE, increased at times. uncomfortable. previously been on gabapentin w/no ADR, agreeable to trialing again [facility]: - Medications: hoping for clarification on citalopram dosing, order says 20mg however Yas was taking 40mg bc this was what she thought her order was, waiting for clarification from PCP Dr. Starks; she has been having increased difficulty managing medications - cannot be left alone for even a minute anymore, a few months ago they were able to leave her for a few hours w/o issue, more recently she can't be left alone w/o falling, going near stairs/other unsafe locations, turning on gas stove and walking away, etc - requiring ADL assistance, transfers, ambulation, hygiene - Hamlet works methods time analyst, Ai provided most care, she is unable to nap/sleep now or leave home. they need more help; hoping for help for even just 3-4 hours to give her a break, preference for ST rehab first to ensure safety, do not feel she is safe at home at this time. Assessment and Plan Assessment and plan (1) Hypoglycemia associated with diabetes: Status: Acute Assessment and plan: continue to monitor, medication adjustments - recommend slow adjustments, w/goal of demonstrating stability w/no hypoglycemic drops prior to discharge if returning home vs ST rehab (2) Progressive cognitive dysfunction: Status: Chronic Assessment and plan: reviewed w/family suspect vascular dementia component, given long history of HTN, heart disease, CTA of brain w/white matter changes consistent w/small vessel ischemic changes - suspect component of decline, however d/t acute and rapid drop w/confusion and other sxs suspect this is multifactorial - family aware progression to be expected, would like to continue to rule out additional causes - an element of behavior pattern changes, agitation, wandering, safety concerns at home need for ongoing review, f/u, detention planning for caregiving and care goals (3) Bipolar 1 disorder: Status: Chronic (4) CHF (congestive heart failure): Status: Chronic Qualifiers: Heart failure type: biventricular Qualified Code(s): I50.82 - Biventricular heart failure (5) Fatigue: Status: Acute (6) Hypertension: Qualifiers: Hypertension type: primary hypertension Qualified Code(s): I10 - Essential (primary) hypertension (7) Deficit in activities of daily living (ADL): Status: Acute Assessment and plan: not safe to return home w/only sister caregiving support, requiring increased ADL support - plan at end of visit today is for discharge to [facility] for 20 day stay, family connected w/[facility] prior to this hospitalization and has completed LTM application, may qualify for CFC or additional caregiver support; recommend establishing caregiving priority for her to return home, which is her preference - continue to track confusion, need for feed assist, etc (8) Restless leg syndrome: Status: Acute Assessment and plan: recommend trial gabapentin 100mg up to TID for RLS and BLE pains (9) ACP (advance care planning): Status: Acute Assessment and plan: reviewed AD, code status, HCA and preferences for LST as long as able to care for self and live w/o pain; all agree and UTD reviewed dementia progressive disease, sxs we are seeing demonstrating such, multifactorial causes w/confusion (hypoglycemia, etc), recommend slow medicine and conversations w/family to ensure all on same page spent 22 mins w/ACP (10) Palliative care encounter: Status: Acute Assessment and plan: PC will continue to follow during this hospitalization, w/fu or Wed outpatient pending discharge plans Review of Systems Narrative: as per HPI PFSH All Active Problems (Updated 11/03/23 @ 15:43 by iA Wilkerson NP) Palliative care encounter (Acute) ACP (advance care planning) (Acute) Restless leg syndrome (Acute) Deficit in activities of daily living (ADL) (Acute) Sleep apnea (Chronic) Hypoglycemia associated with diabetes (Acute) TIA (transient ischemic attack) (Acute) Progressive cognitive dysfunction (Chronic) Constipation (Acute) Injury of left little finger (Acute 07/13/22) Fracture of third metatarsal bone of left foot (Acute 07/13/22) Bipolar 1 disorder (Chronic) Chest pain, rule out acute myocardial infarction (Acute) Hx of CABG (Chronic) CHF (congestive heart failure) (Chronic) Diabetes mellitus type 2, controlled (Chronic) Coronary atherosclerosis (Acute) Accelerating angina (Acute) Hyperlipidemia (Acute) Sinusitis (Acute) Fatigue (Acute) Mitral insufficiency (Acute) Medical History Tobacco abuse Hypertension GERD (gastroesophageal reflux disease) Fibromyalgia Diabetes Surgical History Status post carpal tunnel release of both wrists S/P mitral valve clip implantation Hx of CABG 2015 Social History Smoking/Tobacco Use Status: Current-Occasional Tobacco Type: cigarettes Quit status: considering quitting Smoking risk assessment performed?: Yes Alcohol Intake: former Drug use: Never Substance use type: does not use Housing: house What type of physical activity do you participate in: other Details: cardiac rehab Do you feel safe at home: Yes Do you feel safe in your relationship?: Yes History History Para 4 Hx # Term Pregnancies Multiple births Hx # Pregnancies Ectopic pregnancies AB induced Hx Number of Living Children AB spontaneous Exam Narrative Exam Narrative: General: 68 y/o F lying in hospital bed throughout visit; son Hamlet and sister Ai at bedside, interacts w/daughter Anel via telephone; awake and alert, oriented to place and person; average body habitus HEENT: hearing grossly WNL, normocephalic, atraumatic Resp: even and unlabored, speaks full sentences w/no SOB, no audible wheeze, no cough Skin: no rashes or lesions, did not conduct full skin exam Ext: no pedal edema, no skin changes BLE, RLE ankle reduced passive and active ROM w/guarding, no bruising or redness Neuro: intermittent jerks BLE foot to knee Psych: cooperative, labile mood/affect, speech clear, thought process impoverished, tangential, insight/judgment limited Results Last Vital Signs Temp 98.8 F 11/03/23 11:18 Pulse 63 11/03/23 11:18 Resp 18 11/03/23 11:18 BP 117/58 L 11/03/23 11:18 Pulse Ox 95 11/03/23 11:18 Labs 11/03/23 05:59 11/03/23 05:59 Labs: Laboratory Results - last 24 hr 11/02/23 11/02/23 11/02/23 15:08 15:52 21:15 WBC 8.49 RBC 3.34 L Hgb 8.8 L Hct 29.3 L MCV 88 MCH 26.3 L MCHC 30.0 L RDW 17.5 H Plt Count 305 MPV 10.2 Immature Gran % 0.5 Neutrophils % 66.1 Lymphocytes % 18.3 Monocytes % 14.7 Eosinophils % 0.0 Basophils % 0.4 Nucleated RBC % 0.2 Absolute Neutrophils 5.62 Absolute Lymphocytes 1.55 Absolute Monocytes 1.25 H Absolute Eosinophils 0.00 Absolute Basophils 0.03 Sodium 139 Potassium 3.5 Chloride 101 Carbon Dioxide 27.2 Anion Gap 10.8 BUN 35 H Creatinine 1.3 H Est GFR (CKD-EPI 2020) 45.35 Glucose 116 H Calcium 8.9 Magnesium 1.9 Total Bilirubin 1.1 H AST 60 H ALT 38 Alkaline Phosphatase 284 H Ammonia 35 H Creatine Kinase 553 H Troponin I < 50 < 50 NT-Pro-B Natriuret Pep 2153 H Total Protein 8.2 Albumin 3.0 L TSH 12.50 H Free T4 1.17 Urine Color Yellow Urine Clarity Clear Urine pH 6.5 Ur Specific Franklin 1.015 Urine Protein Negative Urine Ketones Negative Urine Blood Trace-intact H Urine Nitrite Negative Urine Bilirubin Negative Urine Urobilinogen 1.0 H Ur Leukocyte Esterase Negative Urine RBC 0-2 Urine WBC 0-2 Ur Epithelial Cells Few Urine Crystals Negative Urine Bacteria Negative Urine Casts 3-5 Hyaline Urine Mucus Negative Urine Other Rare Transitional Ur Culture Indicated? No Urine Glucose Negative Salicylates < 2.8 Acetaminophen < 2 Ethyl Alcohol < 3.0 11/02/23 11/03/23 22:51 05:59 WBC 8.20 RBC 3.33 L Hgb 8.7 L Hct 29.6 L MCV 89 MCH 26.1 L MCHC 29.4 L RDW 17.4 H Plt Count 295 MPV 10.5 Immature Gran % Neutrophils % Lymphocytes % Monocytes % Eosinophils % Basophils % Nucleated RBC % Absolute Neutrophils Absolute Lymphocytes Absolute Monocytes Absolute Eosinophils Absolute Basophils Sodium 142 Potassium 3.5 Chloride 105 Carbon Dioxide 29.5 Anion Gap 7.5 BUN 33 H Creatinine 1.3 H Est GFR (CKD-EPI 2020) 45.35 Glucose 69 L Calcium 8.9 Magnesium 2.2 Total Bilirubin 0.9 AST 63 H ALT 36 Alkaline Phosphatase 255 H Ammonia Creatine Kinase Troponin I < 50 NT-Pro-B Natriuret Pep Total Protein 7.6 Albumin 2.7 L TSH Free T4 Urine Color Urine Clarity Urine pH Ur Specific Franklin Urine Protein Urine Ketones Urine Blood Urine Nitrite Urine Bilirubin Urine Urobilinogen Ur Leukocyte Esterase Urine RBC Urine WBC Ur Epithelial Cells Urine Crystals Urine Bacteria Urine Casts Urine Mucus Urine Other Ur Culture Indicated? Urine Glucose Salicylates Acetaminophen Ethyl Alcohol
[2023-11-03 14:57] VITALS: BP 103/54; PULSE 64; RESP 16; TEMP 37.4; O2SAT 97
--- NOTE | 2023-11-03 15:40 | CHAPLAIN ---
Yas was sleeping when I visited. I spoke with her two friends who were with her. Yas was here a few weeks ago, and her friends said she had similar symptoms. I will try to catch her awake later today. Yas is Sikhism and knows Fr. Palmer from [facility].
[2023-11-03] MEDS: Aspirin E.C. 81 MG TABEC PO (20:02)
[2023-11-03] MEDS: Rosuvastatin 20 MG TAB 40 MG PO (20:03)
[2023-11-03] MEDS: Clopidogrel 75 MG TAB PO (20:03)
[2023-11-03] MEDS: Gabapentin 100 MG CAP PO (20:03)
[2023-11-03] MEDS: Isosorbide Mononitrate 30 MG TABCR PO (20:04)
[2023-11-03] MEDS: Spironolactone 25 MG TAB 12.5 MG PO (20:04)
[2023-11-03] MEDS: Metoprolol CR 50 MG TABCR 75 MG PO (20:04)
[2023-11-03] MEDS: Pantoprazole 40 MG TABCR PO (20:05)
[2023-11-03] MEDS: Enoxaparin 40 MG/0.4 ML SYR SC (20:05)
[2023-11-03 20:30] VITALS: BP 100/69; PULSE 64; RESP 20; TEMP 36; O2SAT 95
[2023-11-03] MEDS: Insulin Aspart 300 UNITS/3 ML PEN SC (21:58)
[2023-11-04] VITALS (7 sets, daily range): BP systolic 98–126; BP diastolic 47–70; PULSE 57–68; RESP 16–20; TEMP 36.1–37; O2SAT 94–98
[2023-11-04 06:22] LABS: Abs Immature Grans 0.02 10^3/uL (0.0-0.06); Absolute Basophil Count 0.04 10^3/uL (0.0-0.2); Absolute Eosinophil Count 0.04 10^3/uL (0.0-0.7); Absolute Lymphocyte Count 1.28 10^3/uL (1.2-3.4); Absolute Neutrophil Count 3.43 10^3/uL (1.2-6.7); Basophils % 0.7 %; Eosinophils % 0.7 %; HCT 27.9 % (36.0-46.0); HGB 8.3 g/dL (11.2-15.7); Immature Grans % 0.4 %; Lymphocytes % 22.4 %; MCH 26.1 pg (27.0-33.0); MCHC 29.7 % (32.0-36.0); MCV 88 fL (80-95); MPV 9.9 fL (8.0-11.0); Monocytes % 15.8 %; Platelet Count 269 10^3/uL (130-400); RBC 3.18 10^6/uL (3.93-5.22); RDW 17.3 % (11.7-14.6); RDW-SD 55.8 fL; WBC 5.71 10^3/uL (4.4-10.8)
[2023-11-04 06:58] LABS: ALT 33 U/L (14-59); AST 41 U/L (15-37); Albumin 2.5 g/dL (3.4-5.0); Alkaline Phosphatase 237 U/L (46-116); Anion Gap 7.5 mmol/L (3-11); BUN 29 mg/dL (7-18); Bilirubin, Direct 0.6 mg/dL (0.0-0.2); Bilirubin, Total 0.93 mg/dL (0.2-1.0); CO2 27.5 mmol/L (21.0-32.0); CREATININE 1.4 mg/dL (0.55-1.02); Calcium 8.8 mg/dL (8.5-10.1); Chloride 107 mmol/L (98-107); Estimated GFR 41.49 (mL/min/1.73m2); Glucose 104 mg/dL (74-106); Potassium 3.5 mmol/L (3.5-5.1); Sodium 142 mmol/L (136-145); Total Protein 7.1 g/dL (6.4-8.2)
[2023-11-04] MEDS: Torsemide 20 MG TAB 40 MG PO (09:21)
[2023-11-04] MEDS: Multivitamin TAB 1 TAB PO (09:21)
[2023-11-04] MEDS: Cholecalciferol (Vitamin D3) 1,000 UNIT TAB 1000 UNITS PO (09:21)
[2023-11-04] MEDS: Vitamins B Comp w/C TAB 1 TAB PO (09:21)
[2023-11-04] MEDS: lamoTRIgine 100 MG TAB PO ×2 (09:21→20:34)
[2023-11-04] MEDS: lamoTRIgine 25 MG TAB PO ×2 (09:22→20:34)
[2023-11-04] MEDS: Celecoxib 100 MG CAP PO ×2 (09:22→20:30)
[2023-11-04] MEDS: Gabapentin 100 MG CAP PO (09:22)
[2023-11-04] MEDS: Magnesium Lactate-SR 84 MG TABCR PO (09:22)
[2023-11-04] MEDS: Normal Saline Flush 10 ML SYR IVP ×2 (09:23→20:34)
--- NOTE | 2023-11-04 09:42 | W.PM.PROGNOT ---
Date of Service Date of service: 11/04/23 Time of Service: 09:42 Assessment and Plan Assessment and plan (1) Hypoglycemia associated with diabetes: Start date: 11/02/23 Status: Acute Assessment and plan: Gluc Q 2 hours Hold Tresiba or long acting insulin takes it in AM if resuming but most likely not as patient only received a total of 3 units of Aspart during her stay Continue SSI coverage with meal considering HS coverage with 2 units of lispro for BG > 200 and snack with slow carbs such as yogurt D10W stopped on 11/02 Gluc at 3 AM was 137 w/o a rise in value this AM with 116, excluding Colleen phenomenon -Patient is most likely experiencing a Somogyi phenomenon but considering changing dosing for any long acting insulin to AM.Corrective insulin for night time blood sugar working properly -Will repeat a 3 Am blood sugar tonight called Daughter again today at 09:52 at [phone] to update her as she is the primary healthcare agent. -Discussed SNF, capacity, no long acting insulin for now only corrective, snack at HS if taking insulin, nutrition consult , gabapentin VS requip while on lamictal and parkinsonian symptoms Increased somnolence might be d/t gabapentin in AM will give 200 mg at HS and 100 in PM, lamictal can also affect alertness. (2) Diabetes mellitus type 2, controlled: Status: Chronic Assessment and plan: Tresiba on hold. She also takes Jardiance on going from home regimen. 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 MRI: Negative for stroke; showing multiple small foci of white matter signal abnormality consistent with chronic small vessel disease Psych consult completed in ED concluded with: Diagnosis: F02.80 Dementia in other diseases classified elsewhere without behavioral disturbance -Continue Lamictal 125 mg bid for Bipolar disorder, start patient on Melatonin 3 mg HS for insomnia, Aricept 10 mg HS for memory loss. If patient is agitated can give Zyprexa 2.5 mg IM/PO Q6hrs prn. The patient has not been agitated. Will start Aricept 10 mg HS and PRN melatonin as the patient has had no insomnia (5) Bipolar 1 disorder: Status: Chronic Assessment and plan: As above (6) Sleep apnea: Status: Chronic Assessment and plan: Home CPAP Qualifiers: Sleep apnea type: obstructive Qualified Code(s): G47.33 - Obstructive sleep apnea (adult) (pediatric) (7) Discharge planning issues: Status: Acute Assessment and plan: D/C to SNF Consulting CM for offers, most likely ready to for d/c on 11/04 Neurology f/u opt discussed with Dr. Carr Exam Narrative Exam Narrative: Constitutional The patient is in bed comfortable without acute distress, sleepy but arousable, non-focal, can speak Neuro:alert and oriented X2, not in time . No neurological focal deficit Resp: clear lung bilaterally Cardio: Tele SR HR 65 , S1, S2,bilateral radial and dorsalis pedis pulses are positive GI: Abdomen is not distended, soft and non tender, bowel sounds are present : Negative Costovertebral angle tenderness, no bladder distension Back/spine/Pelvis: No back tenderness, normal alignment Integumentary: No skin lesions or rash on exposed skin Psych: RASS 0, congruent mood and normal affect when awake memory impairment again noticed Objective Last Vital Signs Temp 36.4 C L 11/04/23 03:39 Pulse 61 11/04/23 03:39 Resp 20 11/04/23 03:39 BP 118/64 11/04/23 03:39 Pulse Ox 94 11/04/23 03:39 Laboratory Results - last 24 hr 11/04/23 11/04/23 11/04/23 06:08 06:08 06:08 WBC 5.71 RBC 3.18 L Hgb 8.3 L Hct 27.9 L MCV 88 MCH 26.1 L MCHC 29.7 L RDW 17.3 H Plt Count 269 MPV 9.9 Immature Gran % 0.4 Neutrophils % 60.0 Lymphocytes % 22.4 Monocytes % 15.8 Eosinophils % 0.7 Basophils % 0.7 Nucleated RBC % 0.0 Absolute Neutrophils 3.43 Absolute Lymphocytes 1.28 Absolute Monocytes 0.90 H Absolute Eosinophils 0.04 Absolute Basophils 0.04 Sodium 142 Potassium 3.5 Chloride 107 Carbon Dioxide 27.5 Anion Gap 7.5 BUN 29 H Creatinine 1.4 H Est GFR (CKD-EPI 2020) 41.49 Glucose 104 Calcium 8.8 Total Bilirubin 0.93 Cancelled Conjugated Bilirubin 0.6 H Cancelled AST 41 H ALT Alkaline Phosphatase Total Protein Albumin 11/04/23 11/04/23 11/04/23 06:08 06:08 06:08 WBC RBC Hgb Hct MCV MCH MCHC RDW Plt Count MPV Immature Gran % Neutrophils % Lymphocytes % Monocytes % Eosinophils % Basophils % Nucleated RBC % Absolute Neutrophils Absolute Lymphocytes Absolute Monocytes Absolute Eosinophils Absolute Basophils Sodium Potassium Chloride Carbon Dioxide Anion Gap BUN Creatinine Est GFR (CKD-EPI 2020) Glucose Calcium Total Bilirubin Conjugated Bilirubin AST Cancelled ALT 33 Cancelled Alkaline Phosphatase 237 H Cancelled Total Protein 7.1 Albumin 11/04/23 11/04/23 06:08 06:08 WBC RBC Hgb Hct MCV MCH MCHC RDW Plt Count MPV Immature Gran % Neutrophils % Lymphocytes % Monocytes % Eosinophils % Basophils % Nucleated RBC % Absolute Neutrophils Absolute Lymphocytes Absolute Monocytes Absolute Eosinophils Absolute Basophils Sodium Potassium Chloride Carbon Dioxide Anion Gap BUN Creatinine Est GFR (CKD-EPI 2020) Glucose Calcium Total Bilirubin Conjugated Bilirubin AST ALT Alkaline Phosphatase Total Protein Cancelled Albumin 2.5 L Cancelled Time Spent with Patient Time Spent with Patient: >50 minutes Time was spent: preparing to see the patient(eg.review tests), obtaining and/or reviewing separately otained hiistory, ordering medications,tests, procedures, referring, communicating with other health managed care manager, indepentently interpreting results, counseling the patient and care coordination
--- NOTE | 2023-11-04 12:54 | CMPROGNOTE_ITS ---
Date of service: 11/04/23 Time of Service: 12:54 Care Management Progress Note Progress Note Text Progress Note Text: Yas was sitting up in her chair when CM met with her. Her sister, Ai, was in the room. CM discussed discharge planning, including the possibility of going to SNF for short term rehab. Yas was resistant to the idea at first, stating that she wants to go home. She stated that she would prefer to return home first, and if she doesn't do well she would consider rehab. Her sister, Ai, discussed how challenging it has been to care for Yas at home, as she is alone during the day, and is not able to sleep well at night. CM discussed that Yas going to short term rehab would help her to become more independent, and it would also provide time for her family to look for caregivers to support her at home. Yas stated that she would think about it. Later, CM was called to speak to Yas, who stated that she had thought about it and she would be willing to go to SNF for short term rehab. CM will send the referral to [facility] once the PT evaluation is complete. CM will continue to follow. Discharge Potential Discharge Needs: PT Evaluation Anticipated Barriers to Discharge: Medical Status Patient/Family Education Needs: Review discharge instructions, discuss Ask Me Three Transportation: RCT (vs facility transport) RCT Transportation: Wheel chair van Plan: Anticipate Yas may need to transfer to a SNF for short term rehab or possible to an assisted living facility. She will follow up with her community providers and plan of care. Transportation to be determined by disposition. CM will follow and continue to assess for discharge planning concerns. SDOH(Care Management) Screening Will the Patient Participate in the Screening?: Yes Do you worry about having a steady place to live?: no Problems where you live: no known problems In the past 12 months, have you had to go without electric, gas, oil or water in your home?: no Have you or anyone in your house had to go without enough food to eat?: no Has lack of transportation kept you from medical appointments or from doing things needed for daily living?: no Has anyone in your support network made you feel unsafe for any reason?: no
[2023-11-04] MEDS: Insulin Aspart 300 UNITS/3 ML PEN SC ×3 (13:14→21:57)
[2023-11-04] MEDS: Torsemide 20 MG TAB PO (14:38)
[2023-11-04] MEDS: Pantoprazole 40 MG TABCR PO (20:30)
[2023-11-04] MEDS: Clopidogrel 75 MG TAB PO (20:30)
[2023-11-04] MEDS: Aspirin E.C. 81 MG TABEC PO (20:31)
[2023-11-04] MEDS: Spironolactone 25 MG TAB 12.5 MG PO (20:31)
[2023-11-04] MEDS: Metoprolol CR 50 MG TABCR 75 MG PO (20:32)
[2023-11-04] MEDS: Rosuvastatin 20 MG TAB 40 MG PO (20:32)
[2023-11-04] MEDS: Donepezil 5 MG TAB PO (20:32)
[2023-11-04] MEDS: Gabapentin 100 MG CAP 200 MG PO (20:32)
[2023-11-04] MEDS: Isosorbide Mononitrate 30 MG TABCR PO (20:32)
[2023-11-04] MEDS: Enoxaparin 40 MG/0.4 ML SYR SC (20:34)
[2023-11-04] MEDS: Acetaminophen 325 MG TAB PO (20:45)
[2023-11-05 03:25] VITALS: BP 124/57; PULSE 64; RESP 18; TEMP 36.6; O2SAT 96
[2023-11-05 06:27] LABS: Abs Immature Grans 0.03 10^3/uL (0.0-0.06); Absolute Basophil Count 0.04 10^3/uL (0.0-0.2); Absolute Eosinophil Count 0.03 10^3/uL (0.0-0.7); Absolute Lymphocyte Count 1.37 10^3/uL (1.2-3.4); Absolute Monocyte Count 0.72 10^3/uL (0.1-0.8); Absolute Neutrophil Count 3.14 10^3/uL (1.2-6.7); Basophils % 0.8 %; Eosinophils % 0.6 %; HGB 8.5 g/dL (11.2-15.7); Immature Grans % 0.6 %; Lymphocytes % 25.7 %; MCH 26.3 pg (27.0-33.0); MCHC 29.3 % (32.0-36.0); MCV 90 fL (80-95); MPV 10.2 fL (8.0-11.0); Monocytes % 13.5 %; Neutrophils % 58.8 %; RBC 3.23 10^6/uL (3.93-5.22); RDW 17.3 % (11.7-14.6); WBC 5.33 10^3/uL (4.4-10.8)
[2023-11-05 06:55] LABS: Anion Gap 6.9 mmol/L (3-11); BUN 27 mg/dL (7-18); CO2 28.1 mmol/L (21.0-32.0); CREATININE 1.3 mg/dL (0.55-1.02); Calcium 8.7 mg/dL (8.5-10.1); Chloride 104 mmol/L (98-107); Estimated GFR 45.35 (mL/min/1.73m2); Glucose 203 mg/dL (74-106); Potassium 3.4 mmol/L (3.5-5.1); Sodium 139 mmol/L (136-145)
[2023-11-05 07:02] LABS: Diff Comment Manual Differential; Hypochromasia 2+; Platelet Count 281 10^3/uL (130-400); Polychromasia Present
[2023-11-05 08:00] VITALS: BP 131/65; PULSE 59; RESP 15; TEMP 36.1; O2SAT 94
[2023-11-05] MEDS: Insulin Aspart 300 UNITS/3 ML PEN SC ×2 (09:06→12:09)
[2023-11-05] MEDS: Vitamins B Comp w/C TAB 1 TAB PO (09:10)
[2023-11-05] MEDS: Celecoxib 100 MG CAP PO (09:10)
[2023-11-05] MEDS: Cholecalciferol (Vitamin D3) 1,000 UNIT TAB 1000 UNITS PO (09:10)
[2023-11-05] MEDS: Ferrous Sulfate 325 MG TAB PO (09:11)
[2023-11-05] MEDS: lamoTRIgine 100 MG TAB PO (09:11)
[2023-11-05] MEDS: Magnesium Lactate-SR 84 MG TABCR PO (09:11)
[2023-11-05] MEDS: Multivitamin TAB 1 TAB PO (09:11)
[2023-11-05] MEDS: lamoTRIgine 25 MG TAB PO (09:11)
[2023-11-05] MEDS: Torsemide 20 MG TAB 40 MG PO (09:11)
[2023-11-05] MEDS: Normal Saline Flush 10 ML SYR IVP (09:12)
--- NOTE | 2023-11-05 11:49 | W.PM.PROGNOT ---
Date of Service Date of service: 11/05/23 Time of Service: 11:49 Objective Last Vital Signs Temp 36.1 C L 11/05/23 08:00 Pulse 59 L 11/05/23 08:00 Resp 15 11/05/23 08:00 BP 131/65 11/05/23 08:00 Pulse Ox 94 11/05/23 08:00 Laboratory Results - last 24 hr 11/05/23 06:10 WBC 5.33 RBC 3.23 L Hgb 8.5 L Hct 29.0 L MCV 90 MCH 26.3 L MCHC 29.3 L RDW 17.3 H Plt Count 281 MPV 10.2 Immature Gran % 0.6 Neutrophils % 58.8 Lymphocytes % 25.7 Monocytes % 13.5 Eosinophils % 0.6 Basophils % 0.8 Nucleated RBC % 0.0 Absolute Neutrophils 3.14 Absolute Lymphocytes 1.37 Absolute Monocytes 0.72 Absolute Eosinophils 0.03 Absolute Basophils 0.04 RBC Morphology See Below Polychromasia Present Hypochromasia 2+ Sodium 139 Potassium 3.4 L Chloride 104 Carbon Dioxide 28.1 Anion Gap 6.9 BUN 27 H Creatinine 1.3 H Est GFR (CKD-EPI 2020) 45.35 Glucose 203 H Calcium 8.7
[2023-11-05] MEDS: Insulin Glargine 300 UNITS/3 ML PEN 8 UNITS SC (12:10)
--- NOTE | 2023-11-05 12:37 | IN_ITS ---
PT Notes Visit Reasons: Hypoglycemia,type 2 diabetes mellitus,memory,chf Physical Therapy Inpatient Initial Evaluation Date: 11/05/2023 Referring Doctor: Candace Holm NP PT Orders: PT CONSULT: Safety COnsult for D/C Precautions: Fall. Standard. Activity as tolerated. Patient Profile/Admitting Diagnosis: Yas is a 68-year-old female with diagnoses of hypoglycemia associated with DM type II and progressive cognitive dysfunction, difficulty walking, and and dependence in ADLs. PMHX: All Active Problems (Updated 11/03/23 @ 00:53 by Dequan Hdez) Sleep apnea (Chronic) Hypoglycemia associated with diabetes (Acute) TIA (transient ischemic attack) (Acute) Progressive cognitive dysfunction (Chronic) Constipation (Acute) Injury of left little finger (Acute 07/13/22) Fracture of third metatarsal bone of left foot (Acute 07/13/22) Bipolar 1 disorder (Chronic) Chest pain, rule out acute myocardial infarction (Acute) Hx of CABG (Chronic) CHF (congestive heart failure) (Chronic) Diabetes mellitus type 2, controlled (Chronic) Coronary atherosclerosis (Acute) Accelerating angina (Acute) Hyperlipidemia (Acute) Sinusitis (Acute) Fatigue (Acute) Mitral insufficiency (Acute) Medical History Tobacco abuse Hypertension GERD (gastroesophageal reflux disease) Fibromyalgia Diabetes Sleep apnea Surgical History Status post carpal tunnel release of both wrists S/P mitral valve clip implantation Hx of CABG 2016 Social History/Home Situation: Modified independent with all mobility ADL performance with occasional use of single-point cane. Lives with son who works during the day. Sister, although available during the day no longer feels that she is capable of providing current care needs of patient. Equipment Owned/DME: Single point cane, walking stick Subjective: I still feel weak but willing to walk with PT. [place] drowsy, did not sleep well last night. Did not know how to clean up spilled ney karine on her tray table. Objective: General Observation: Resting in bedside recliner. Finished with lunch. Mental Status: Drowsy and oriented as to person, place, time, and purpose. Able to pay attention, focus, and respond appropriately. Pain: None reported Vital Signs: Closely monitored by nursing staff ROM: Right Upper Extremity: Shoulder Flexion WFL. Shoulder abduction WFL. Elbow flexion WFL. Wrist flexion WFL. Functional opening and closing of hand WFL. Left Upper Extremity: Shoulder Flexion WFL. Shoulder abduction WFL. Elbow flexion WFL. Wrist flexion WFL. Functional opening and closing of hand WFL. Right Lower Extremity: Hip flexion WFL. Hip abduction WFL. Knee flexion WFL. Ankle dorsiflexion WFL. Ankle plantarflexion WFL. Left Lower Extremity: Hip flexion WFL. Hip abduction WFL. Knee flexion WFL. Ankle dorsiflexion WFL. Ankle plantarflexion WFL. Strength: Right Upper Extremity: Shoulder flexors 4-/5. Shoulder abductors 4-/5. Elbow flexors 4-/5. Elbow extensors 4-/5. Apple Checker strong. Left Upper Extremity: Shoulder flexors 4-/5. Shoulder abductors 4-/5. Elbow flexors 4-/5. Elbow extensors 4-/5. Apple Checker strong. Right Lower Extremity: Hip flexors 4/5. Hip abductors 4/5. Knee flexors 4/5. Knee extensors 4/5. Ankle dorsiflexors 4/5. Ankle plantarflexors 4/5. Left Lower Extremity: Hip flexors 4/5. Hip abductors 4/5. Knee flexors 4/5. Knee extensors 4/5. Ankle dorsiflexors 4/5. Ankle plantarflexors 4/5. Bed Mobility/Transfers: Minimal cueing provided for use of B hands as needed for support, movement sequence, AD management, and posture to reduce fall risk and minimize pain report Sit to stand contact guard assist with FWW Stand to sit contact guard assist with FWW Bed to reclining chair contact guard assist with FWW Reclining chair to bed contact guard assist with FWW Gait: Facilitated safe and correct performance of level surface ambulation covering a distance of 200 feet using front wheeled walker with minimal verbal cueing for AD management, posture, and limb advancement to reduce fall risk and optimize balance. Contact guard assist provided with occasional minimal assist during directional changes. Balance: Static Sitting: Good Dynamic Sitting: Good Static Standing: Fair Dynamic Standing: Fair Special Tests: Mobility Limitations Standardized Measure [facility]-PAC 6 clicks Basic Mobility Inpatient Short Form: Raw Score: 18 CMS Score: 47% deficit 4-Stage Balance Test: Feet together 10 seconds, Semi-tandem 10 seconds, Full tandem <10 seconds, One-legged stance <10 seconds Informed Consent/Education: Patient was instructed in purpose of PT consult and plan of care. Agreeable to proceed with established PT POC to achieve personal goals. Assessment: Patient requires use of front wheeled walker and contact guard to minimal assist for all mobility ADL performance independence and reduce fall risk Patient presents with clinical signs and symptoms consistent with current/admitting diagnoses that have resulted to mobility limitations, gait instability, generalized weakness, and overall ADL decline as demonstrated by the following impairment level findings: 1. Decreased strength to B UE/LE major muscle groups 2. Impaired sitting/standing balance 3. Impaired activity tolerance Impairments are contributing to the following functional limitations: 1. Difficulty with ambulation without assistive device and physical assistance 2. Increased completion time for mobility ADL performance 3. Increased risk for falls 4. Difficulty with managing steps alone safely Patient is assessed [place] a 74414 moderate complexity based on the following: History: 68-year-old female with past medical history as indicated above Examination: Demonstrable impairment in strength, balance, and mobility level with underlying impairments and functional limitations as exhibited above as well as deficit score of 47% utilizing the [facility] Mobility Inpatient Short Form Presentation: Evolving Decision Makin moderate complexity Goals: Goals X1 week 1. Supine-Sit independent 2. Sit-Supine independent 3. Sit-Stand independent 4. Stand-Sit independent with FWW 5. Bed-Chair independent with FWW 6. Chair-Bed independent with FWW 7. Independent gait on level surface with use of FWW for at least 300 feet without report of pain nor dyspnea 8. Independent stair negotiation while holding onto B rails for at least 3 steps without report of pain nor dyspnea 9. Independent with home exercise program 10. Good static and dynamic standing balance/tolerance Plan of Care/Treatment Plan: 1-2x/day, 7 days/week x 1 week. Plan of care has been reviewed with the LABEL REWINDER providing the service under Physical Therapy direction. Initiate Physical Therapy intervention for pain management as needed, strengthening, bed mobility, transfers, gait, stairs, balance training, and use of assistive device. DISCHARGE RECOMMENDATIONS: [] Home with no services [] [] Home with services [] Home with outpatient PT [] [] SNF for continued rehabilitation [] [] [facility] [] [] SNF versus LTC based on ability to participate and progress [] [X] Short-term SNF vs HH PT based on [id number] towards goals as well as on capability/availability of caregivers (at home) TREATMENT CODE/TIME: 64110 x 25 minutes for 1 unit (12:37-13:03). Thank you for the opportunity to participate in the care of this patient. Barb Martines PT, DPT, CLT [facility] [place], [place]
[2023-11-05] MEDS: Gabapentin 100 MG CAP PO (14:26)
[2023-11-05] MEDS: Torsemide 20 MG TAB PO (14:26)
--- NOTE | 2023-11-05 15:21 | DSE_ITS ---
Date of service: 11/05/23 Time of Service: 15:22 DS: Diagnosis Discharge Diagnosis (1) Hypoglycemia associated with diabetes: Status: Acute (2) Diabetes mellitus type 2, controlled: Status: Chronic (3) CHF (congestive heart failure): Status: Chronic (4) Progressive cognitive dysfunction: Status: Chronic (5) Bipolar 1 disorder: Status: Chronic (6) Sleep apnea: Status: Chronic (7) Discharge planning issues: Status: Acute Discharge Plan Disposition Patient Disposition: Long Term Facility(SNF) Condition: Improving Discharge Details Reason For Visit: Hypoglycemia,type 2 diabetes mellitus,memory,chf Admit Date/Time: 11/02/23 18:59 Admit Provider: Dequan Hdez Attending Provider: Dequan Hdez Primary Care Provider: Wily Starks Hospital Course Hospital Course: This 68 years old female patient with a past medical history bipolar disorder on Lamictal, hypertension, fibromyalgia, sleep apnea on CPAP, diabetes type 2 on insulin presented to the ED at [facility] on 11/02/2023 with complaints of increased confusion with hypoglycemia at home and falls. Labs were unremarkable except a stable H&H of 8.7 and 29.6 and hypoglycemia without signs of DKA; creatinine was at 1.3 close to her baseline of 1.1. In the ED the patient responded for tr eatment for hypoglycemia. The patient was evaluated by telepsych in the ED with new diagnostic for dementia and new medicine recommendations. The patient was admitted for evaluation and management of hypoglycemia and concern of home safety. During her stay [facility] insulin dose was adjusted and she will be discharged on 10 units daily. The patient should continue to have blood sugars done before meals and at bedtime. The patient will also receive sliding scale insulin to correct her insulin at meals times and at bedtime. The patient should receive a snack at bedtime if insulin is administered. The medicines recommended by psychiatry were implemented and the patient will be discharged on Aricept and as needed melatonin for sleep. The patient has not received any melatonin at bedtime during her stay. As per the patient was also started on gabapentin for restless leg syndrome with improvement and will continue status post discharge. Palliative care consult was initiated and the patient is now palliative care patient but remains a full code. LFTs should be repeated in a week as the patient was started on gabapentin. The patient used her home CPAP during the stay and should continue upon discharge. Other chronic conditions were managed as per her home medicine regimen. Patient complained of hurting her right ankle but x-ray was negative for any acute injury. Incentive spirometer was initiated as the patient tends to breathe shallow and should be continued upon discharge. Discussed with Dr. Carr Home Meds and New Rx's Prescriptions: New donepezil 5 mg Tablet 5 mg PO HS Qty: 30 0RF gabapentin 100 mg Capsule 200 mg PO HS Qty: 60 0RF gabapentin 100 mg Capsule 100 mg PO DAILY@1400 Qty: 30 0RF melatonin 3 mg Tablet 3 mg PO HS PRN PRNQty: 30 0RF alum-mag hydroxide-simeth 400-400-40 mg/5 mL Suspension 15 ml PO Q2H PRN PRNQty: 3000 0RF polyethylene glycol 3350 17 gram Powder In Packet 17 g PO DAILY PRN PRN (Reason: Constipation) Qty: 30 0RF insulin degludec [Tresiba U-100 Insulin] 100 unit/mL solution 10 unit subcut DAILY Qty: 10 0RF Rx Instructions: IN AM Continued magnesium L-lactate 84 mg tablet extended release 84 mg PO DAILY pantoprazole 40 mg tablet,delayed release (DR/EC) 40 mg PO HS aspirin [Adult Low Dose Aspirin] 81 MG tablet,delayed release (DR/EC) 81 mg PO HS Qty: 30 lamotrigine [Lamictal] 100 MG tablet 100 mg PO BID Patient Comments: Total 125 mg po bid nitroglycerin [Nitrostat] 0.4 MG tablet, sublingual 0.4 mg Sublingual Q5 MIN PRN X3 PRN (Reason: Chest Pain) Qty: 15 0RF cholecalciferol (vitamin D3) 25 mcg (1,000 unit) Capsule 1,000 unit PO DAILY lamotrigine 25 mg tablet 25 mg PO BID Patient Comments: Total 125 mg po bid spironolactone 25 mg tablet 12.5 mg PO HS Patient Comments: Take 1/2 tablet by mouth once a day clopidogrel 75 mg tablet 75 mg PO HS Patient Comments: TAKE 1 TABLET EVERY DAY isosorbide mononitrate 30 mg Tablet Extended Release 24 Hr 30 mg PO HS Qty: 30 0RF rosuvastatin [Crestor] 40 MG tablet 40 mg PO QPM multivitamin [Daily Multi-Vitamin] 1 EACH tablet 1 tab PO DAILY vitamin B complex [B-Complex] 1 EACH tablet 1 tab PO DAILY alprazolam 0.5 mg Tablet 0.5 mg PO DAILY PRN (Reason: anxiety) Rx Instructions: Max 2 times per week prn for anxiety naloxone [Narcan] 4 mg/actuation Dun[place],Non-Aerosol 4 mg intranasal PRN PRN metoprolol succinate 50 mg tablet extended release 24 hr 75 mg PO HS Patient Comments: TAKE 1 AND 1/2 TABLETS BY MOUTH DAILY torsemide 20 mg tablet See Rx Instructions .ROUTE .COMPLEX Rx Instructions: Take 2 tabs po qam and 1 tab in midafternoon; sucralfate 1 gram tablet 1 g PO PRN Patient Comments: TAKE ONE TABLET BY MOUTH FOUR TIMES A DAY NEEDED celecoxib 100 mg capsule 100 mg PO BID Patient Comments: TAKE ONE CAPSULE BY MOUTH EVERY 12 HOURS NEEDED Changed insulin aspart U-100 [Novolog FlexPen U-100 Insulin] 100 unit/mL (3 mL) insulin pen 1 sliding scale dose subcut AC & HS Qty: 15 0RF Rx Instructions: Gluc < 140 0 units 141 to 180 2 units 181 to 220 4 units 221 to 250 6 units 251 to 280 8 units 281 to 320 10 units 321 to 450 12 units 451 give 14 units and seek medical care Discontinued insulin degludec [Tresiba FlexTouch U-100] 100 unit/mL (3 mL) insulin pen 45 unit SUBCUT DAILY Patient Comments: INJECT 45 UNITS UNDER THE SKIN ONCE A DAY IN THE MORNING Rx Instructions: 45 minutes after Novolog Discharge Instructions Referrals: NEUROLOGY,[facility] [OTHER] - (F/u with neurology 1-2 weeks Hx of bipolar disorder, recent and new behavioral changes with memory impairment in for acute nocturnal hypoglycemia. 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 further questions will be omitted at this time. due to her inability to complete sentences. Exam Narrative Exam Narrative: Constitutional The patient is in bed comfortable without acute distress, sleepy but arousable, non-focal, can speak Neuro:alert and oriented X2, not in time . No neurological focal deficit Resp: clear lung bilaterally, diminished bases Cardio: regular, S1, S2,bilateral radial and dorsalis pedis pulses are positive GI: Abdomen is not distended, soft and non tender, bowel sounds are present : Negative Costovertebral angle tenderness, no bladder distension Back/spine/Pelvis: No back tenderness, normal alignment Integumentary: No skin lesions or rash on exposed skin Psych: RASS 0, congruent mood and normal affect when awake memory impairment Psych Mental Status: mental status grossly normal Speech and Movement: speech and movement normal Mood: congruent mood Affect: normal affect DS: Data Vitals/I&O Vitals and I&O: Vital Signs Temperature 36.1 C L 11/05/23 08:00 Temperature Source Temporal Artery Scan 11/05/23 08:00 Pulse 59 L 11/05/23 08:00 Pulse Rhythm Regular 11/04/23 22:51 Pulse 71 11/02/23 17:50 Respiratory Rate 15 11/05/23 08:00 Respiratory Effort Normal, Non-Labored 11/04/23 22:51 Respiratory Depth Normal 11/04/23 22:51 Respiratory Pattern Normal 11/04/23 22:51 Blood Pressure 131/65 11/05/23 08:00 Blood Pressure Mean 65 11/02/23 17:46 Blood Pressure Position Sitting 11/02/23 14:36 Pulse Oximetry 94 11/05/23 08:00 Oxygen Delivery Method Cpap 11/05/23 08:00 Oxygen Flow Rate 0 11/04/23 19:27 Pain Level 0 11/05/23 08:00 Comment re-check 11/04/23 15:53 Intake & Output 11/04/23 11/05/23 11/05/23 23:59 11:59 23:59 Intake Total 0 / 0 Output Total 1900 / 2900 300 / 300 Balance -1900 / -2900 -300 / -300 Weight 86.2 kg Intake: IV 0 / 0 Output: Urine 1900 / 2900 300 / 300 Other: Urine Color Yellow Straw Urine Appearance Clear Clear Urine Odor Strong Voiding Methods Bedside Commode Toilet Data Completed and Pending Labs on day of discharge: Labs from last 24 hours 11/05/23 06:10 WBC 5.33 RBC 3.23 L Hgb 8.5 L Hct 29.0 L MCV 90 MCH 26.3 L MCHC 29.3 L RDW 17.3 H Plt Count 281 MPV 10.2 Immature Gran % 0.6 Neutrophils % 58.8 Lymphocytes % 25.7 Monocytes % 13.5 Eosinophils % 0.6 Basophils % 0.8 Nucleated RBC % 0.0 Absolute Neutrophils 3.14 Absolute Lymphocytes 1.37 Absolute Monocytes 0.72 Absolute Eosinophils 0.03 Absolute Basophils 0.04 RBC Morphology See Below Polychromasia Present Hypochromasia 2+ Sodium 139 Potassium 3.4 L Chloride 104 Carbon Dioxide 28.1 Anion Gap 6.9 BUN 27 H Creatinine 1.3 H Est GFR (CKD-EPI 2020) 45.35 Glucose 203 H Calcium 8.7 PFSH All Active Problems (Updated 11/04/23 @ 13:39 by Candace Holm APRN) Discharge planning issues (Acute) Palliative care encounter (Acute) ACP (advance care planning) (Acute) Restless leg syndrome (Acute) Deficit in activities of daily living (ADL) (Acute) Sleep apnea (Chronic) Hypoglycemia associated with diabetes (Acute) TIA (transient ischemic attack) (Acute) Progressive cognitive dysfunction (Chronic) Constipation (Acute) Injury of left little finger (Acute 07/13/22) Fracture of third metatarsal bone of left foot (Acute 07/13/22) Bipolar 1 disorder (Chronic) Chest pain, rule out acute myocardial infarction (Acute) Hx of CABG (Chronic) CHF (congestive heart failure) (Chronic) Diabetes mellitus type 2, controlled (Chronic) Coronary atherosclerosis (Acute) Accelerating angina (Acute) Hyperlipidemia (Acute) Sinusitis (Acute) Fatigue (Acute) Mitral insufficiency (Acute) Medical History Tobacco abuse Hypertension GERD (gastroesophageal reflux disease) Fibromyalgia Diabetes Surgical History Status post carpal tunnel release of both wrists S/P mitral valve clip implantation Hx of CABG 2015 Social History Smoking/Tobacco Use Status: Current-Occasional Tobacco Type: cigarettes Quit status: considering quitting Smoking risk assessment performed?: Yes Alcohol Intake: former Drug use: Never Substance use type: does not use Housing: house What type of physical activity do you participate in: other Details: cardiac rehab Do you feel safe at home: Yes Do you feel safe in your relationship?: Yes History History Para 4 Hx # Term Pregnancies Multiple births Hx # Pregnancies Ectopic pregnancies AB induced Hx Number of Living Children AB spontaneous Time Spent with Patient Time Spent with Patient: 45-69 minutes Time was spent: preparing to see the patient(eg.review tests), obtaining and/or reviewing separately otained hiistory, ordering medications,tests, procedures, referring, communicating with other health rn complex care, indepentently interpreting results, counseling the patient and care coordination
--- NOTE | 2023-11-05 15:54 | CMDISCH_ITS ---
Date of service: 11/05/23 Time of Service: 15:54 LACE Index Scoring Tool Questions: Length of Stay (in days): 3 Was the patient admitted via the E.D.?: Yes Comorbidities: Diabetes w/o Complication and Congestive Heart Failure E.D. Visits: 3 Answers: Total Score: 12 Risk of Readmission: High Risk Care Management Discharge Plan Reason for Hospitalization: hypoglycemia Discharge Plan: Yas was transferred to [facility] for short term rehab prior to returning home. 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 She was transported via private vehicle by her sister. She will follow up with her PCP and discharge plan of care. Patient/Family Education Needs: Review discharge instructions and limitations, discussion of self care needs including ask me three. Services Needed at Discharge: [facility] ([facility]) [facility] Health Related Social Needs: No Data to Display Referrals and interventions: pt evidently confused. further questions will be omitted at this time. due to her inability to complete sentences.
--- NOTE | 2023-11-05 16:11 | NUR.NOTE ---
Nursing Note: Report was given to Gabrielle at [facility] for pending transfer.
[2023-11-05] MEDS: Potassium Chloride 20 MEQ TABCR PO (16:18)
== END 2023-11-05 16:23 | disposition skilled nursing facility (03) | DRG 638 ==
LOC: ER 18:24 → MS 19:42
PROVIDERS: Nurse Practitioner Acute Care; Admitting Provider Family Medicine; Emergency Provider Emergency Medicine; PCP Family Medicine; Visit Provider Family Medicine
DX: E11.649 Type 2 diabetes mellitus with hypoglycemia without coma (principal); I50.20 Unspecified systolic (congestive) heart failure; F01.50 Vascular dementia, unspecified severity, without behavioral disturbance, psychotic disturbance, mood disturbance, and anxiety; F31.9 Bipolar disorder, unspecified; G47.33 Obstructive sleep apnea (adult) (pediatric); W19.XXXA Unspecified fall, initial encounter; R53.83 Other fatigue; G25.81 Restless legs syndrome; I11.0 Hypertensive heart disease with heart failure; I27.20 Pulmonary hypertension, unspecified; I25.10 Atherosclerotic heart disease of native coronary artery without angina pectoris; Z95.1 Presence of aortocoronary bypass graft; F02.80 Dementia in other diseases classified elsewhere, unspecified severity, without behavioral disturbance, psychotic disturbance, mood disturbance, and anxiety; Z79.85 Long-term (current) use of injectable non-insulin antidiabetic drugs; F17.210 Nicotine dependence, cigarettes, uncomplicated; I50.82 Biventricular heart failure; Z86.73 Personal history of transient ischemic attack (TIA), and cerebral infarction without residual deficits; Z95.818 Presence of other cardiac implants and grafts; E66.9 Obesity, unspecified; Z79.4 Long term (current) use of insulin
CPT/HCPCS: 00123; 36415; 36416; 80048; 80053; 80076; 82550; 82962; 85027; 93005; 97162; 99285; J1650; 70450; 70551; 71045; 73610; 80320; 80329; 81003; 81015; 82140; 83735; 83880; 84439; 84443; 84484; 85025; 93010; 99223; 99233; 99239; J1815

== ENCOUNTER 2024-01-06 13:05 | Emergency (ER) | payer MEDICARE, SELFPAY ==
[2024-01-06] VITALS (12 sets, daily range): BP systolic 138–171; BP diastolic 51–96; PULSE 63–77; RESP 7–21; TEMP 36.4; O2SAT 98–100
--- NOTE | 2024-01-06 13:00 | RT.EKG_ITS ---
APPROVED REPORT Exam: Resting ECG Reason for Exam: chest pain Patient Location: E HR:61 bpm ECG Measurements Heart Rate 61 AXIS OK 185 P 64 QRSd 98 QRS 1 QT 444 T 68 QTc 449 Conclusion Sinus rhythm 61 no stemi
--- NOTE | 2024-01-06 13:29 | ED.GENADUL_ITS ---
Discharge Plan Disposition Patient Disposition: Home Condition: Stable Discharge Details Clinical Impression: Mild shortness of breath Primary Care Provider: Wily Starks ED Provider: Rah Dave Home Meds and New Rx's Prescriptions: Continued magnesium L-lactate 84 mg tablet extended release 84 mg PO DAILY acetaminophen 325 mg tablet 650 mg PO Q4H PRN bisacodyl [Dulcolax (bisacodyl)] 10 mg suppository 10 mg SC DAILY PRN gabapentin 100 mg capsule 200 mg PO HS insulin degludec [Tresiba U-100 Insulin] 100 unit/mL solution 15 unit subcut DAILY Rx Instructions: IN AM pantoprazole 40 mg tablet,delayed release (DR/EC) 40 mg PO HS aspirin [Adult Low Dose Aspirin] 81 MG tablet,delayed release (DR/EC) 81 mg PO HS Qty: 30 lamotrigine [Lamictal] 100 MG tablet 100 mg PO BID Patient Comments: Total 125 mg po bid nitroglycerin [Nitrostat] 0.4 MG tablet, sublingual 0.4 mg Sublingual Q5 MIN PRN X3 PRN (Reason: Chest Pain) Qty: 15 0RF cholecalciferol (vitamin D3) 25 mcg (1,000 unit) Capsule 1,000 unit PO DAILY lamotrigine 25 mg tablet 25 mg PO BID Patient Comments: Total 125 mg po bid spironolactone 25 mg tablet 12.5 mg PO HS Patient Comments: Take 1/2 tablet by mouth once a day clopidogrel 75 mg tablet 75 mg PO HS Patient Comments: TAKE 1 TABLET EVERY DAY isosorbide mononitrate 30 mg Tablet Extended Release 24 Hr 30 mg PO HS Qty: 30 0RF donepezil 5 mg Tablet 5 mg PO HS Qty: 30 0RF gabapentin 100 mg Capsule 100 mg PO DAILY@1400 Qty: 30 0RF alum-mag hydroxide-simeth 400-400-40 mg/5 mL Suspension 15 ml PO Q2H PRN PRNQty: 3000 0RF polyethylene glycol 3350 17 gram Powder In Packet 17 g PO DAILY PRN PRN (Reason: Constipation) Qty: 30 0RF insulin aspart U-100 [Novolog FlexPen U-100 Insulin] 100 unit/mL (3 mL) i nsulin pen 1 sliding scale dose subcut AC & HS Qty: 15 0RF Rx Instructions: Gluc < 140 0 units 141 to 180 2 units 181 to 220 4 units 221 to 250 6 units 251 to 280 8 units 281 to 320 10 units 321 to 450 12 units 451 give 14 units and seek medical care alprazolam 0.5 mg Tablet 0.5 mg PO DAILY PRN PRN (Reason: anxiety) Qty: 30 0RF rosuvastatin [Crestor] 40 MG tablet 40 mg PO QPM multivitamin [Daily Multi-Vitamin] 1 EACH tablet 1 tab PO DAILY vitamin B complex [B-Complex] 1 EACH tablet 1 tab PO DAILY naloxone [Narcan] 4 mg/actuation [place],Non-Aerosol 4 mg intranasal PRN PRN metoprolol succinate 50 mg tablet extended release 24 hr 75 mg PO HS Patient Comments: TAKE 1 AND 1/2 TABLETS BY MOUTH DAILY torsemide 20 mg tablet See Rx Instructions .ROUTE .COMPLEX Rx Instructions: Take 2 tabs po qam and 1 tab in midafternoon; sucralfate 1 gram tablet 1 g PO PRN Patient Comments: TAKE ONE TABLET BY MOUTH FOUR TIMES A DAY NEEDED celecoxib 100 mg capsule 100 mg PO BID Patient Comments: TAKE ONE CAPSULE BY MOUTH EVERY 12 HOURS NEEDED Discharge Instructions Instructions: Costochondritis, Shortness of Breath, Adult ED Additional Instructions: You were seen in the emergency department for your acute on chronic shortness of breath with some chest pressure. The CTA of your chest shows no pulmonary embolism, shows that you have a stable 4 mm pulmonary nodule that has not grown from prior imaging this is not emergent and likely benign. Shows no focal pneumonia. Your COVID and flu are negative, RSV is negative. Your labs show an improved chronic anemia with a hemoglobin of 9.2, no elevation of white blood cells meaning no severe infection your CMP shows no acute abnormalities of electrolytes, you do have elevated thyroid-stimulating hormone but a normal T4 level, this needs to be followed by primary care, your urine shows no UTI. Your EKG shows no acute concerns for heart attack and your troponin tests are negative. I do not have a definitive diagnosis for you but you need to follow-up with your primary care provider in regards to your chest pressure and shortness of breath as we have ruled out significant amounts of any emergent pathologies at this time, they may refer you to pulmonology. You may have also musculoskeletal pain at the junction of the sternal costal muscles, you may apply topical Voltaren gel to this area for a trial of pain relief, gentle heat and massage may also relieve the pain over number of days. Please return to the emergency department for any increasing chest pain especially shortness of breath, sweating, feelings of near fainting, intractable nausea or vomiting, uncontrollable tremors. Referrals: Wily Starks MD [Primary Care Provider] - Discharge Data Discharge Date/Time-TO BE ENTERED AT DEPARTURE: 01/06/24 15:42 HPI General Date/Time Provider Initiated Documentation: 01/06/24 13:19 . HPI Narrative: 68 year-old female presents to ED today by EMS with a chief complaint of chest pain/pressure and shortness of breath with onset over the past week. Quality described as generalized substernal chest pain, also endorsing shakes and shortness of breath feeling she is not getting enough air even with her CPAP machine at night, states she has a nonspecific disoriented feeling and endorses nausea without vomiting, no radiation to hemoptysis, syncope, diaphoresis, near syncope, severe abdominal pain, fever, cough, sore throat. Severity is described as 3/10. Palliating factors include nothing specific attempted. Provoking factors include nothing specific. Events leading up to the incident/Associated Symptoms: Patient has cardiac history of double bypass and stent. Patient is anticoagulated. Related Data Home Medications ?Medication ?Instructions ?Recorded ?Confirmed lamotrigine 100 mg tablet 100 mg PO BID 04/08/14 01/06/24 (Lamictal) nitroglycerin 0.4 mg sublingual 0.4 mg sublingual Q5 MIN PRN X3 07/01/15 01/06/24 tablet (Nitrostat) PRN Chest Pain #15 tabs aspirin 81 mg tablet,delayed 81 mg PO HS #30 tab-caps 05/29/16 01/06/24 release (Adult Low Dose Aspirin) rosuvastatin 40 mg tablet (Crestor) 40 mg PO QPM 01/03/18 01/06/24 multivitamin (Daily Multi-Vitamin 1 tab PO DAILY 01/04/18 01/06/24 tablet) vitamin B complex (B-Complex 1 tab PO DAILY 01/04/18 01/06/24 tablet) naloxone 4 mg/actuation nasal 4 mg intranasal PRN PRN 11/21/18 01/06/24 spray (Narcan) magnesium L-lactate 84 mg 84 mg PO DAILY 12/23/18 01/06/24 tablet,extended release pantoprazole 40 mg tablet,delayed 40 mg PO HS 04/07/19 01/06/24 release cholecalciferol (vitamin D3) 25 1,000 unit PO DAILY 09/23/20 01/06/24 mcg (1,000 unit) capsule metoprolol succinate 50 mg 75 mg PO HS 12/27/20 01/06/24 tablet,extended release 24 hr torsemide 20 mg tablet See Rx Instructions .Route .COMPLEX 08/23/22 01/06/24 clopidogrel 75 mg tablet 75 mg PO HS 09/06/23 01/06/24 lamotrigine 25 mg tablet 25 mg PO BID 09/06/23 01/06/24 spironolactone 25 mg tablet 12.5 mg PO HS 09/06/23 01/06/24 isosorbide mononitrate 30 mg 30 mg PO HS #30 tabs 09/07/23 01/06/24 tablet,extended release 24 hr celecoxib 100 mg capsule 100 mg PO BID 10/21/23 01/06/24 sucralfate 1 gram tablet 1 g PO PRN 10/21/23 01/06/24 alprazolam 0.5 mg tablet 0.5 mg PO DAILY PRN PRN anxiety 11/05/23 01/06/24 #30 tabs aluminum-mag hydroxide-simethicone 15 ml PO Q2H PRN PRN #3,000 mL 11/05/23 01/06/24 400 mg-400 mg-40 mg/5 mL oral susp donepezil 5 mg tablet 5 mg PO HS #30 tabs 11/05/23 01/06/24 gabapentin 100 mg capsule 100 mg PO DAILY@1400 #30 caps 11/05/23 01/06/24 insulin aspart U-100 100 unit/mL 1 sliding scale dose subcut AC & 11/05/23 01/06/24 (3 mL) subcutaneous pen (Novolog HS #15 mL FlexPen U-100 Insulin aspart) polyethylene glycol 3350 17 gram 17 g PO DAILY PRN PRN Constipation 11/05/23 01/06/24 oral powder packet #30 ea acetaminophen 325 mg tablet 650 mg PO Q4H PRN 11/09/23 01/06/24 bisacodyl 10 mg rectal suppository 10 mg SC DAILY PRN 11/09/23 01/06/24 (Dulcolax (bisacodyl)) gabapentin 100 mg capsule 200 mg PO HS 11/09/23 01/06/24 insulin degludec 100 unit/mL 15 unit subcut DAILY 11/09/23 01/06/24 subcutaneous solution (Tresiba U-100 Insulin) Previous Rx's ?Medication ?Instructions ?Recorded nitroglycerin 0.4 mg sublingual 0.4 mg sublingual Q5 MIN PRN X3 07/01/15 tablet (Nitrostat) PRN Chest Pain #15 tabs isosorbide mononitrate 30 mg 30 mg PO HS #30 tabs 09/07/23 tablet,extended release 24 hr alprazolam 0.5 mg tablet 0.5 mg PO DAILY PRN PRN anxiety 11/05/23 #30 tabs aluminum-mag hydroxide-simethicone 15 ml PO Q2H PRN PRN #3,000 mL 11/05/23 400 mg-400 mg-40 mg/5 mL oral susp donepezil 5 mg tablet 5 mg PO HS #30 tabs 11/05/23 gabapentin 100 mg capsule 100 mg PO DAILY@1400 #30 caps 11/05/23 insulin aspart U-100 100 unit/mL 1 sliding scale dose subcut AC & 11/05/23 (3 mL) subcutaneous pen (Novolog HS #15 mL FlexPen U-100 Insulin aspart) polyethylene glycol 3350 17 gram 17 g PO DAILY PRN PRN Constipation 11/05/23 oral powder packet #30 ea Allergies Allergy/AdvReac Type Severity Reaction Status Date / Time ezetimibe (From Vytorin) Allergy Unknown Other (See Verified 01/06/24 13:13 Comment) hydrocodone Allergy Unknown Other (See Verified 01/06/24 13:13 Comment) pravastatin Allergy Unknown Other (See Verified 01/06/24 13:13 Comment) simvastatin (From Vytorin) Allergy Unknown Other (See Verified 01/06/24 13:13 Comment) ibuprofen AdvReac Severe severe Verified 01/06/24 13:13 vomiting semaglutide (From Ozempic) AdvReac Severe Other (See Verified 01/06/24 13:13 Comment) General Stated Complaint: Chest Pain CHRIS: 2 Review of Systems All systems reviewed & are unremarkable except as noted in HPI and below Exam Narrative Exam Narrative: GENERAL APPEARANCE: Well-nourished, non-toxic, awake and alert, atraumatic, no acute distress. SKIN: Warm, pink, dry, intact, without rashes/lesions/ulcerations. HEAD: Normocephalic, atraumatic, normal hair distribution for gender/age. EYES: Normal conjunctiva, no exudates on lids/lashes. ENT: Nares patent, no circumoral cyanosis, no facial swelling NECK: Supple, trachea midline, painless cervical ROM. LUNGS/CHEST: Lungs CTA bilaterally-no rhonchi/rales/wheezes diffusely, non-l abored respirations, normal A/P diameter, symmetrical expansion, no chest wall deformity HEART (CV/PV): Regular rate and rhythm without murmur, no peripheral edema, no JVD. ABDOMEN: Soft, non-distended, no guarding, no tenderness. MSK: Normal ROM, no swelling/deformity to bilateral UEs or LEs, moving all extremities without weakness, no cyanosis, spine midline without tenderness, normal curvature. NEURO: Mental Status AAOx4 - alert to person, place, time, events No facial droop, no forehead involvement. Motor: No focal weakness - strength 5/5 in bilateral UEs and LEs, proximal and distal, symmetric. Sensory: sensation intact to light touch globally. Gait normal: patient ambulated without ataxia into ED room. PSYCH: euthymic, cooperative, pleasant, appropriate speech Course Vital Signs Vital signs: Vital Signs Temperature 36.4 C L 01/06/24 13:07 Pulse 67 01/06/24 13:07 Respiratory Rate 16 01/06/24 13:07 Blood Pressure 171/96 H 01/06/24 13:07 Pulse Oximetry 98 01/06/24 13:07 Temperature 36.4 C L 01/06/24 13:07 Temperature Source Temporal Artery Scan 01/06/24 13:07 Pulse 67 01/06/24 13:07 Respiratory Rate 16 01/06/24 13:07 Respiratory Effort Short of Breath 01/06/24 13:16 Blood Pressure 171/96 H 01/06/24 13:07 Pulse Oximetry 98 01/06/24 13:07 Oxygen Delivery Method Room Air 01/06/24 13:07 Oxygen Flow Rate 0 01/06/24 13:07 Medical Decision Making This dictation utilizes [id number] dictation software and may contain unedite d grammatical errors. 68 year-old female presents to ED today by EMS with a chief complaint of chest pain/pressure and shortness of breath with onset over the past week. Quality described as generalized substernal chest pain, also endorsing shakes and shortness of breath feeling she is not getting enough air even with her CPAP machine at night, states she has a nonspecific disoriented feeling and endorses nausea without vomiting, no radiation to hemoptysis, syncope, diaphoresis, near syncope, severe abdominal pain, fever, cough, sore throat. Severity is described as 3/10. Palliating factors include nothing specific attempted. Provoking factors include nothing specific. Events leading up to the incident/Associated Symptoms: Patient has cardiac history of double bypass and stent. Patients' medical history: Palliative care encounters, fatigue, history of tobacco abuse, hypertension GERD, fibromyalgia, diabetes, restless leg syndrome, history of TIA, history of CABG and CHF. Family and social history: Lives independently. Pertinent exam findings / vital signs include pleuritic central chest pain without crepitus, lungs CTA diffusely, regular rate and rhythm, nontoxic and afebrile, benign abdomen. Differential / pathologies of concern include ACS, pulmonary embolism, costochondritis, DKA, viral syndrome, anxiety. Diagnostic studies of: -CBC, CMP, VBG, troponin I, magnesium, procalcitonin, lipase, TSH, urinalysis, COVID/flu/RSV PCR, EKG, CTA chest. -CBC is unremarkable without leukocytosis, stable but improved chronic anemia, elevated monocytes -VBG shows no acidosis shows a compensated metabolic alkalosis -CMP shows stable but chronic elevation of alk phos, no other acute abnormalities -Magnesium within normal limits -Lipase negative -Procalcitonin negative -TSH is significantly elevated at 7.6 with a normal T4 -Urinalysis benign -COVID/flu/RSV PCR negative -EKG shows sinus rhythm at 61 bpm with P waves followed by narrow complex QRS, no ST elevations, there are some diffuse ST depressions, flattened/inverted T waves in V1 V2, V3 has significant artifact -CTA Chest shows no PE, a stable 4mm lung nodule, and ground-glass opacities but no focal pneumonia Interventions of: -500mL fluid bolus, patient comfortable without analgesia- tolerating PO in room. ED Course/Assessment/Plan: 68-year-old female presents with a multitude of complaints, acute on chronic shortness of breath with pleuritic 3 out of 10 chest pain, has cardiac history, known chronic diabetes, states she has been having shakes but does have restless leg syndrome. EKG shows some ST depressions, initial troponin is negative with repeat pending at time of signout, there is no actionable electrolyte abnormality, patient has chronic stable but improved anemia, CTA of chest shows no PE, no PNA. Counseled patient on following up with primary care now that significant amounts of emergent pathologies have been ruled out, recommend pulmonology visit for possible interstitial lung disease. Strict return criteria for worsening shortness of breath, tractable nausea or vomiting, increasing frequency and intensity of tremor, chest pain, dizziness. Disposition of Shortness of Breath, Pleuritic Chest Pain. Patient verbalized understanding of the plan and return to ED criteria and engaged in shared decision making. Medical Records Medical records reviewed: Yes I reviewed the patient's medical records. Imaging Data Radiologic Study: Attestation: I personally reviewed and interpreted this imaging study as follows: Imaging: CT Scan My impression: TYPO: NO evidence of PE in impression. Radiologist's impression: EXAM: CT CHEST PE CTA CLINICAL HISTORY: SOB, pleuritic CP. TECHNIQUE: Imaging Protocol: Axial CT angiography was performed with multi- slice acquisition and multi-planar and/or 3D reconstructions. CONTRAST MATERIAL: Intravenous: Omnipaque 350 contrast volume:100 mL COMPARISON: CT CT CHEST PE ABD PELVIS W from 05/10/2023 CR XR CHEST 1V IN DI DEPT from 11/02/2023 FINDINGS: Tracheobronchial tree: Patent where visualized. No bronchiectasis. Pulmonary parenchyma: There are atelectatic changes seen in the lungs. No focal consolidating infiltrates are seen. There is a stable 4 mm nodule in the posterior aspect of the left lung apex. No new pulmonary nodules are present. Ground-glass opacities are seen in the lungs. Pulmonary Arteries: No evidence of filling defect to suggest pulmonary emboli. Mediastinum and Ronel: No dominant adenopathy or fluid collection. The esophagus is unremarkable. Visualized thyroid gland: Unremarkable. Pleura: No effusion or pneumothorax. Heart: Cardiomegaly. Coronary artery calcifications. No pericardial effusion. Aorta: Thoracic aorta non-dilated. Atherosclerotic calcification is seen. Due to the timing of the bolus, the thoracic aorta is not well opacified. Upper abdomen: Unremarkable. Soft tissues: Unremarkable. Bones: Within normal limits for the patient's age.Sternal wires are in place. IMPRESSION: 1. Evidence of a pulmonary embolism or thoracic aortic dissection. 2. Stable 4 mm left upper lobe nodule. 3. Ground-glass opacities in the lung. This may represent normal expiratory phase, infectious or inflammatory process. Please correlate with patient's clinical history. No focal consolidating infiltrates. Lab Data Lab results reviewed: Yes I reviewed the patient's lab results. Labs: Laboratory Tests Range/Units 01/06/24 01/06/24 13:45 13:53 WBC (4.4-10.8) 10^3/uL 9.07 RBC (3.93-5.22) 10^6/uL 3.81 L Hgb (11.2-15.7) g/dL 9.2 L Hct (36.0-46.0) % 31.1 L MCV (80-95) fL 82 MCH (27.0-33.0) pg 24.1 L MCHC (32.0-36.0) % 29.6 L RDW (11.7-14.6) % 20.9 H Plt Count (130-400) 10^3/uL 263 MPV (8.0-11.0) fL 10.0 Immature Gran % % 0.6 Neutrophils % % 68.7 Lymphocytes % % 19.0 Monocytes % % 10.3 Eosinophils % % 1.0 Basophils % % 0.4 Nucleated RBC % (0.0-0.3) % 0.0 Absolute Neutrophils (1.2-6.7) 10^3/uL 6.24 Absolute Lymphocytes (1.2-3.4) 10^3/uL 1.72 Absolute Monocytes (0.1-0.8) 10^3/uL 0.93 H Absolute Eosinophils (0.0-0.7) 10^3/uL 0.09 Absolute Basophils (0.0-0.2) 10^3/uL 0.04 RBC Morphology See Below Hypochromasia 1+ Anisocytosis 2+ VBG pH (7.31-7.41) 7.44 H VBG pCO2 (41-51) mmHg 46 VBG pO2 mmHg 27 VBG HCO3 (23-28) mmol/L 31 H VBG Total CO2 (24-29) mmol/L 29 VBG O2 Saturation % 46 VBG Base Excess (-2-3) mmol/L 7 H Sodium (136-145) mmol/L 139 Potassium (3.5-5.1) mmol/L 4.1 Chloride (98-107) mmol/L 102 Carbon Dioxide (21.0-32.0) mmol/L 29.6 Anion Gap (3-11) mmol/L 7.4 BUN (7-18) mg/dL 16 Creatinine (0.55-1.02) mg/dL 1.0 Est GFR (CKD-EPI 2020) (mL/min/1.73m2) 62.13 Glucose (74-106) mg/dL 113 H Calcium (8.5-10.1) mg/dL 9.7 Magnesium (1.8-2.4) mg/dL 2.3 Total Bilirubin (0.2-1.0) mg/dL 0.56 AST (15-37) U/L 27 ALT (14-59) U/L 24 Alkaline Phosphatase (46-116) U/L 257 H Troponin I (< or =60) ng/L < 50 Total Protein (6.4-8.2) g/dL 8.4 H Albumin (3.4-5.0) g/dL 3.0 L Lipase (16-77) U/L 19 Procalcitonin ng/mL < 0.1 TSH (0.36-3.74) uIU/mL 7.66 H Free T4 (0.76-1.46) ng/dL 0.94 Urine Color (Yellow) Yellow Urine Clarity (Clear) Clear Urine pH (5-8) 7.5 Ur Specific [place] (1.005-1.025) 1.015 Urine Protein (Neg-Trace) mg/dL Negative Urine Ketones (Negative) mg/dL Negative Urine Blood (Negative) Negative Urine Nitrite (Negative) Negative Urine Bilirubin (Negative) Negative Urine Urobilinogen (Up to 0.2) mg/dL 0.2 Ur Leukocyte Esterase (Negative) Negative Urine Glucose (Negative) mg/dL Negative Quality:SDOH Health Related Social Needs: No Data to Display PFSH All Active Problems (Updated 01/06/24 @ 15:19 by ISA Haney) Mild shortness of breath (Acute) ACP (advance care planning) (Acute) Restless leg syndrome (Acute) Deficit in activities of daily living (ADL) (Acute) Sleep apnea (Chronic) Hypoglycemia associated with diabetes (Acute) TIA (transient ischemic attack) (Acute) Progressive cognitive dysfunction (Chronic) Constipation (Acute) Injury of left little finger (Acute 07/13/22) Fracture of third metatarsal bone of left foot (Acute 07/13/22) Bipolar 1 disorder (Chronic) Chest pain, rule out acute myocardial infarction (Acute) Hx of CABG (Chronic) CHF (congestive heart failure) (Chronic) Diabetes mellitus type 2, controlled (Chronic) Coronary atherosclerosis (Acute) Accelerating angina (Acute) Hyperlipidemia (Acute) Sinusitis (Acute) Mitral insufficiency (Acute) Medical History (Updated 01/06/24 @ 15:19 by ISA Haney) Palliative care encounter Fatigue Tobacco abuse Hypertension GERD (gastroesophageal reflux disease) Fibromyalgia Diabetes Surgical History Status post carpal tunnel release of both wrists S/P mitral valve clip implantation Hx of CABG 2015 Social History Smoking/Tobacco Use Status: Current-Occasional Tobacco Type: cigarettes Quit status: considering quitting Smoking risk assessment performed?: Yes Alcohol Intake: former Drug use: Never Substance use type: does not use Housing: house What type of physical activity do you participate in: other Details: cardiac rehab Do you feel safe at home: Yes Do you feel safe in your relationship?: Yes History History Para 4 Hx # Term Pregnancies Multiple births Hx # Pregnancies Ectopic pregnancies AB induced Hx Number of Living Children AB spontaneous
--- NOTE | 2024-01-06 13:30 | DI.CT_ITS ---
Exam(s) CT CHEST PE CTA EXAM: CT CHEST PE CTA CLINICAL HISTORY: SOB, pleuritic CP. TECHNIQUE: Imaging Protocol: Axial CT angiography was performed with multi-slice acquisition and mu lti-planar and/or 3D reconstructions. CONTRAST MATERIAL: Intravenous: Omnipaque 350 contrast volume:100 mL COMPARISON: CT CT CHEST PE ABD PELVIS W from 05/10/2023 CR XR CHEST 1V IN DI DEPT from 11/02/2023 FINDINGS: Tracheobronchial tree: Patent where visualized. No bronchiectasis. Pulmonary parenchyma: There are atelectatic changes seen in the lungs. No focal consolidating infilt rates are seen. There is a stable 4 mm nodule in the posterior aspect of the left lung apex. No new pulmonary nodules are present. Ground-glass opacities are seen in the lungs. Pulmonary Arteries: No evidence of filling defect to suggest pulmonary emboli. Mediastinum and Ronel: No dominant adenopathy or fluid collection. The esophagus is unremarkable. Visualized thyroid gland: Unremarkable. Pleura: No effusion or pneumothorax. Heart: Cardiomegaly. Coronary artery calcifications. No pericardial effusion. Aorta: Thoracic aorta non-dilated. Atherosclerotic calcification is seen. Due to the timing of the b olus, the thoracic aorta is not well opacified. Upper abdomen: Unremarkable. Soft tissues: Unremarkable. Bones: Within normal limits for the patient's age.Sternal wires are in place. IMPRESSION: 1. Evidence of a pulmonary embolism or thoracic aortic dissection. 2. Stable 4 mm left upper lobe nodule. 3. Ground-glass opacities in the lung. This may represent normal expiratory phase, infectious or inf lammatory process. Please correlate with patient's clinical history. No focal consolidating infiltr ates. RADIATION DOSE DELIVERED: Total DLP DATA REPOSITORY: All CT scans at this facility are submitted to the National Radiology Data Registry (NRDR) Dose Index Registry (DIR) with the [employer] ([employer]). RADIATION OPTIMIZATION: All CT scans at this facility use at least one of these dose optimization te chniques: automated exposure control; mA and/or kV adjustment per patient size (includes targeted exa ms where dose is matched to clinical indication); or iterative reconstruction.
[2024-01-06 13:53] LABS: BE (Venous) 7 mmol/L (-2-3); HCO3 (Venous) 31 mmol/L (23-28); O2 Sat (Venous) 46 %; TCO2 (Venous) 29 mmol/L (24-29); pCO2 (Venous) 46 mmHg (41-51); pH (Venous) 7.44 (7.31-7.41); pO2 (Venous) 27 mmHg
[2024-01-06 13:54] LABS: Abs Immature Grans 0.05 10^3/uL (0.0-0.06); Absolute Basophil Count 0.04 10^3/uL (0.0-0.2); Absolute Eosinophil Count 0.09 10^3/uL (0.0-0.7); Absolute Lymphocyte Count 1.72 10^3/uL (1.2-3.4); Absolute Monocyte Count 0.93 10^3/uL (0.1-0.8); Absolute Neutrophil Count 6.24 10^3/uL (1.2-6.7); Basophils % 0.4 %; HCT 31.1 % (36.0-46.0); HGB 9.2 g/dL (11.2-15.7); Immature Grans % 0.6 %; MCH 24.1 pg (27.0-33.0); MCHC 29.6 % (32.0-36.0); MCV 82 fL (80-95); Monocytes % 10.3 %; Neutrophils % 68.7 %; Platelet Count 263 10^3/uL (130-400); RBC 3.81 10^6/uL (3.93-5.22); RDW 20.9 % (11.7-14.6); RDW-SD 61.5 fL; WBC 9.07 10^3/uL (4.4-10.8)
[2024-01-06] MEDS: Normal Saline 500 ML IV (14:06)
[2024-01-06 14:13] LABS: ALT 24 U/L (14-59); AST 27 U/L (15-37); Alkaline Phosphatase 257 U/L (46-116); Anion Gap 7.4 mmol/L (3-11); BUN 16 mg/dL (7-18); Bilirubin, Total 0.56 mg/dL (0.2-1.0); CO2 29.6 mmol/L (21.0-32.0); Calcium 9.7 mg/dL (8.5-10.1); Chloride 102 mmol/L (98-107); Estimated GFR 62.13 (mL/min/1.73m2); Glucose 113 mg/dL (74-106); Lipase 19 U/L (16-77); Magnesium 2.3 mg/dL (1.8-2.4); Potassium 4.1 mmol/L (3.5-5.1); Sodium 139 mmol/L (136-145); Total Protein 8.4 g/dL (6.4-8.2); Troponin I < 50 ng/L (< or =60)
[2024-01-06 14:14] LABS: Bilirubin Negative (Negative); Blood Negative (Negative); Clarity Clear (Clear); Glucose Negative (Negative); Ketones Negative (Negative); Leukocyte Esterase Negative (Negative); Nitrite Negative (Negative); Specific Gravity 1.015 (1.005-1.025); Urobilinogen 0.2 mg/dL (Up to 0.2); pH 7.5 (5-8)
[2024-01-06 14:19] LABS: Anisocytosis 2+; Diff Comment Diff Reviewed; Hypochromasia 1+
[2024-01-06 14:21] LABS: TSH (W/Ref FT4) 7.66 uIU/mL (0.36-3.74)
[2024-01-06 14:37] LABS: FREE T4 0.94 ng/dL (0.76-1.46)
[2024-01-06] MEDS: Omnipaque 350 MG/ML 100 ML BTL IJ (14:37)
[2024-01-06 14:42] LABS: Procalcitonin < 0.1 ng/mL
[2024-01-06 15:01] LABS: COVID-19 PCR Negative (Negative); Influenza A PCR Negative (Negative); Influenza B PCR Negative (Negative); RSV PCR Negative (Negative)
[2024-01-06 15:17] LABS: Source Nasopharynx
== END 2024-01-06 15:42 | disposition home or self-care (01) ==
PROVIDERS: Emergency Provider Physician Assistant; PCP Family Medicine
DX: R06.02 Shortness of breath (principal); E11.9 Type 2 diabetes mellitus without complications; E78.5 Hyperlipidemia, unspecified; I11.0 Hypertensive heart disease with heart failure; I50.32 Chronic diastolic (congestive) heart failure; F17.210 Nicotine dependence, cigarettes, uncomplicated; Z79.01 Long term (current) use of anticoagulants; Z79.4 Long term (current) use of insulin; Z79.82 Long term (current) use of aspirin; Z86.73 Personal history of transient ischemic attack (TIA), and cerebral infarction without residual deficits; Z95.1 Presence of aortocoronary bypass graft; Z95.5 Presence of coronary angioplasty implant and graft
CPT/HCPCS: 36415; 71275; 80053; 82805; 83690; 84145; 87637; 93005; 96360; 99285; 81003; 83735; 84439; 84443; 84484; 85025; 93010; 99284; J3490

== ENCOUNTER 2024-01-14 02:33 | Outpatient (CLI) | payer MEDICARE, SELFPAY ==
[2024-01-14] MEDS: Inhaler, Assist Device 1 EACH MC (11:55)
[2024-01-14] MEDS: Levalbuterol HFA 15 GM INH 4 PUFF IH (11:55)
--- NOTE | 2024-01-26 20:08 | PFT_ITS ---
Date of service: 01/14/24 Time of Service: 09:58 Pulmonary Function Test Result Requesting Provider Luna Reyna Indications: Dyspnea with anxiety, bending, and exertion. Current [id number] smoker, seasonal allergies. Interpretation Spirometry: Spirometry pre and postbronchodilator show: 1. No clear evidence of airway obstruction. 2. No significant response to bronchodilator. 3. Mildly decreased forced vital capacity (see lung volume studies below). Computer Hardware Technician comments indicate good patient effort, but variability was noted in the performance of both the pre and postbronchodilator tracing. The test met ATS standards for usability. Lung Volumes: Lung volume studies by plethysmography showed: 1. No evidence of restriction. The total lung capacity was 109% predicted, and the slow vital capacity was 91% predicted. 2. Mild hyperinflation was present, as indicated by a residual volume of 133% predicted and an RV/TLC of 123% predicted. 3. These results suggest that the decreased FVC and FEV1 in the spirometry section may have been effort related. Diffusion Capacity: Diffusing capacity by single breath carbon monoxide technique showed: 1. Mildly decreased DLCO, which normalized when adjusted for lung volumes. This is not likely of clinical significance. 2. 6-month follow-up is recommended. Clinical and radiographic correlation is recommended for the mildly decreased DLCO in the setting of normal lung volumes.
== END 2024-01-26 23:59 | disposition home or self-care (01) ==
LOC: RT 02:33
PROVIDERS: PCP Family Medicine; Visit Provider Family Medicine
DX: R06.09 Other forms of dyspnea (principal); F17.210 Nicotine dependence, cigarettes, uncomplicated; J30.2 Other seasonal allergic rhinitis
CPT/HCPCS: 00123; 94060; 94726; 94729

== ENCOUNTER 2024-02-02 11:44 | Emergency (ER) | payer MEDICARE, SELFPAY ==
--- NOTE | 2024-02-02 11:45 | RT.EKG_ITS ---
APPROVED REPORT Exam: Resting ECG Reason for Exam: chest pain Patient Location: E HR:75 bpm ECG Measurements Heart Rate 75 AXIS NE 172 P 57 QRSd 102 QRS 103 QT 411 T 56 QTc 458 Conclusion Sinus rhythm...normal P axis, V-rate 60- 99 Right axis deviation...QRS axis ( 91,269) Low voltage, precordial leads...precordial leads <1.0mV Anteroseptal infarct, old...Q >40mS, V1-V2
[2024-02-02 11:54] VITALS: BP 107/62; PULSE 76; RESP 16; TEMP 37.1; O2SAT 93
[2024-02-02 12:50] VITALS: BP 105/64; PULSE 71; O2SAT 95
[2024-02-02 14:15] VITALS: BP 113/64; PULSE 68; O2SAT 96
--- NOTE | 2024-02-02 14:30 | DI.CT_ITS ---
Exam(s) CT CHEST PE CTA EXAM: CT CHEST PE CTA CLINICAL HISTORY: left pleuritic chest pain, sob. TECHNIQUE: Imaging Protocol: Axial CT angiography was performed with multi-slice acquisition and mu lti-planar reconstructions as well as axial, coronal and sagittal MIP reconstructions. CONTRAST MATERIAL: Intravenous: Omnipaque 350 Contrast volume:100 ml COMPARISON: CT CT CHEST PE CTA from 01/06/2024 FINDINGS: Pulmonary Arteries: Well opacified with IV contrast. No evidence of filling defect to suggest pulmon can emboli. Pulmonary veins not yet opacified. Tracheobronchial tree: No mucous plugging. Mediastinum and Ronel: No dominant adenopathy or fluid collection. Pulmonary parenchyma: No consolidation or dominant measurable mass. Expiratory changes. Mild multi focal air trapping. Pleura: No effusion or pneumothorax. Heart: The heart is mildly dilated. Coronary artery calcifications are seen. Aorta: Not opacified with contrast. Thoracic aorta non-dilated. No dissection. Upper abdomen: No acute findings. Liver is enlarged. Bones: Sternal wires. Tubes, Catheters, and Lines: None Soft tissues: Unremarkable. IMPRESSION: No evidence of pulmonary embolism or other acute abnormality. RADIATION DOSE DELIVERED: Total DLP DATA REPOSITORY: All CT scans at this facility are submitted to the National Radiology Data Registry (NRDR) Dose Index Registry (DIR) with the [employer] (A[employer]). RADIATION OPTIMIZATION: All CT scans at this facility use at least one of these dose optimization te chniques: automated exposure control; mA and/or kV adjustment per patient size (includes targeted exa ms where dose is matched to clinical indication); or iterative reconstruction.
[2024-02-02 14:39] VITALS: BP 142/48; PULSE 78; RESP 18; O2SAT 97
[2024-02-02 14:48] LABS: Abs Immature Grans 0.06 10^3/uL (0.0-0.06); Absolute Basophil Count 0.05 10^3/uL (0.0-0.2); Absolute Eosinophil Count 0.13 10^3/uL (0.0-0.7); Absolute Lymphocyte Count 1.43 10^3/uL (1.2-3.4); Absolute Monocyte Count 0.97 10^3/uL (0.1-0.8); Absolute Neutrophil Count 6.52 10^3/uL (1.2-6.7); Basophils % 0.5 %; Eosinophils % 1.4 %; HGB 9.6 g/dL (11.2-15.7); Immature Grans % 0.7 %; Lymphocytes % 15.6 %; MCH 23.7 pg (27.0-33.0); MCHC 29.1 % (32.0-36.0); MCV 82 fL (80-95); MPV 9.5 fL (8.0-11.0); Monocytes % 10.6 %; Neutrophils % 71.2 %; Platelet Count 274 10^3/uL (130-400); RBC 4.05 10^6/uL (3.93-5.22); RDW 20.6 % (11.7-14.6); WBC 9.16 10^3/uL (4.4-10.8)
[2024-02-02 15:01] LABS: Anisocytosis 1+; Diff Comment RBC Morph Reviewed
[2024-02-02 15:12] LABS: ALT 24 U/L (14-59); AST 25 U/L (15-37); Albumin 3.1 g/dL (3.4-5.0); Alkaline Phosphatase 226 U/L (46-116); Anion Gap 8.8 mmol/L (3-11); BUN 29 mg/dL (7-18); Bilirubin, Total 0.67 mg/dL (0.2-1.0); CO2 28.2 mmol/L (21.0-32.0); CREATININE 1.3 mg/dL (0.55-1.02); Calcium 9.7 mg/dL (8.5-10.1); Chloride 101 mmol/L (98-107); Estimated GFR 45.07 (mL/min/1.73m2); Glucose 210 mg/dL (74-106); NT-proBNP 1421 pg/mL (<300); Potassium 4.6 mmol/L (3.5-5.1); Sodium 138 mmol/L (136-145); Total Protein 8.6 g/dL (6.4-8.2); Troponin I 19 ng/L (<or=51)
[2024-02-02] MEDS: Normal Saline 500 ML 1000 ML IV (15:13)
[2024-02-02] MEDS: Ondansetron 4 MG/2 ML VIAL IVP (15:13)
[2024-02-02] MEDS: fentaNYL 100 MCG/2 ML VIAL 25 MCG IVP (15:13)
[2024-02-02 15:27] LABS: INR 1.2 (0.9-1.1); Prothrombin Time 12.3 sec (9.1-11.1)
--- NOTE | 2024-02-02 15:34 | W.ED.GENAD ---
Discharge Plan Disposition Patient Disposition: Home Condition: Improving Discharge Details Clinical Impression: Pleurisy Primary Care Provider: Wily Starks ED Provider: Gui Alejandro Home Meds and New Rx's Prescriptions: New lidocaine [Lidoderm] 5 % adhesive patch,medicated 1 patch topical DAILY PRNQty: 15 0RF Rx Instructions: leave on most painful area for up to 12 hrs No Action magnesium L-lactate 84 mg tablet extended release 84 mg PO DAILY acetaminophen 325 mg tablet 650 mg PO Q4H PRN bisacodyl [Dulcolax (bisacodyl)] 10 mg suppository 10 mg [place] DAILY PRN gabapentin 100 mg capsule 200 mg PO HS insulin degludec [Tresiba U-100 Insulin] 100 unit/mL solution 15 unit subcut DAILY Rx Instructions: IN AM pantoprazole 40 mg tablet,delayed release (DR/EC) 40 mg PO HS aspirin [Adult Low Dose Aspirin] 81 MG tablet,delayed release (DR/EC) 81 mg PO HS Qty: 30 lamotrigine [Lamictal] 100 MG tablet 100 mg PO BID Patient Comments: Total 125 mg po bid nitroglycerin [Nitrostat] 0.4 MG tablet, sublingual 0.4 mg Sublingual Q5 MIN PRN X3 PRN (Reason: Chest Pain) Qty: 15 0RF cholecalciferol (vitamin D3) 25 mcg (1,000 unit) Capsule 1,000 unit PO DAILY lamotrigine 25 mg tablet 25 mg PO BID Patient Comments: Total 125 mg po bid spironolactone 25 mg tablet 12.5 mg PO HS Patient Comments: Take 1/2 tablet by mouth once a day clopidogrel 75 mg tablet 75 mg PO HS Patient Comments: TAKE 1 TABLET EVERY DAY isosorbide mononitrate 30 mg Tablet Extended Release 24 Hr 30 mg PO HS Qty: 30 0RF donepezil 5 mg Tablet 5 mg PO HS Qty: 30 0RF gabapentin 100 mg Capsule 100 mg PO DAILY@1400 Qty: 30 0RF alum-mag hydroxide-simeth 400-400-40 mg/5 mL Suspension 15 ml PO Q2H PRN PRNQty: 3000 0RF polyethylene glycol 3350 17 gram Powder In Packet 17 g PO DAILY PRN PRN (Reason: Constipation) Qty: 30 0RF insulin aspart U-100 [Novolog FlexPen U-100 Insulin] 100 unit/mL (3 mL) insulin pen 1 sliding scale dose subcut AC & HS Qty: 15 0RF Rx Instructions: Gluc < 140 0 units 141 to 180 2 units 181 to 220 4 units 221 to 250 6 units 251 to 280 8 units 281 to 320 10 units 321 to 450 12 units 451 give 14 units and seek medical care alprazolam 0.5 mg Tablet 0.5 mg PO DAILY PRN PRN (Reason: anxiety) Qty: 30 0RF rosuvastatin [Crestor] 40 MG tablet 40 mg PO QPM multivitamin [Daily Multi-Vitamin] 1 EACH tablet 1 tab PO DAILY vitamin B complex [B-Complex] 1 EACH tablet 1 tab PO DAILY naloxone [Narcan] 4 mg/actuation [place],Non-Aerosol 4 mg intranasal PRN PRN metoprolol succinate 50 mg tablet extended release 24 hr 75 mg PO HS Patient Comments: TAKE 1 AND 1/2 TABLETS BY MOUTH DAILY torsemide 20 mg tablet See Rx Instructions .ROUTE .COMPLEX Rx Instructions: Take 2 tabs po qam and 1 tab in midafternoon; celecoxib 100 mg capsule 100 mg PO BID Patient Comments: TAKE ONE CAPSULE BY MOUTH EVERY 12 HOURS NEEDED Discharge Instructions Instructions: Pleurisy (ED) Additional Instructions: Please follow with your primary care physician. Please return to the emerged part for any worsening symptoms HPI General Date/Time Provider Initiated Documentation: 02/02/24 12:15. HPI Narrative: 69-year-old female presents with left-sided rib pain worse with breathing movement and coughing shortness of breath since Wednesday has been using [id number] medication without relief. Related Data Home Medications ?Medication ?Instructions ?Recorded ?Confirmed lamotrigine 100 mg tablet 100 mg PO BID 04/08/14 02/02/24 (Lamictal) nitroglycerin 0.4 mg sublingual 0.4 mg sublingual Q5 MIN PRN X3 07/01/15 02/02/24 tablet (Nitrostat) PRN Chest Pain #15 tabs aspirin 81 mg tablet,delayed 81 mg PO HS #30 tab-caps 05/29/16 02/02/24 release (Adult Low Dose Aspirin) rosuvastatin 40 mg tablet (Crestor) 40 mg PO QPM 01/03/18 02/02/24 multivitamin (Daily Multi-Vitamin 1 tab PO DAILY 01/04/18 02/02/24 tablet) vitamin B complex (B-Complex 1 tab PO DAILY 01/04/18 02/02/24 tablet) naloxone 4 mg/actuation nasal 4 mg intranasal PRN PRN 11/21/18 02/02/24 spray (Narcan) magnesium L-lactate 84 mg 84 mg PO DAILY 12/23/18 02/02/24 tablet,extended release pantoprazole 40 mg tablet,delayed 40 mg PO HS 04/07/19 02/02/24 release cholecalciferol (vitamin D3) 25 1,000 unit PO DAILY 09/23/20 02/02/24 mcg (1,000 unit) capsule metoprolol succinate 50 mg 75 mg PO HS 12/27/20 02/02/24 tablet,extended release 24 hr torsemide 20 mg tablet See Rx Instructions .Route .COMPLEX 08/23/22 02/02/24 clopidogrel 75 mg tablet 75 mg PO HS 09/06/23 02/02/24 lamotrigine 25 mg tablet 25 mg PO BID 09/06/23 02/02/24 spironolactone 25 mg tablet 12.5 mg PO HS 09/06/23 02/02/24 isosorbide mononitrate 30 mg 30 mg PO HS #30 tabs 09/07/23 02/02/24 tablet,extended release 24 hr celecoxib 100 mg capsule 100 mg PO BID 10/21/23 02/02/24 alprazolam 0.5 mg tablet 0.5 mg PO DAILY PRN PRN anxiety 11/05/23 02/02/24 #30 tabs aluminum-mag hydroxide-simethicone 15 ml PO Q2H PRN PRN #3,000 mL 11/05/23 02/02/24 400 mg-400 mg-40 mg/5 mL oral susp donepezil 5 mg tablet 5 mg PO HS #30 tabs 11/05/23 02/02/24 gabapentin 100 mg capsule 100 mg PO DAILY@1400 #30 caps 11/05/23 02/02/24 insulin aspart U-100 100 unit/mL 1 sliding scale dose subcut AC & 11/05/23 02/02/24 (3 mL) subcutaneous pen (Novolog HS #15 mL FlexPen U-100 Insulin aspart) polyethylene glycol 3350 17 gram 17 g PO DAILY PRN PRN Constipation 11/05/23 02/02/24 oral powder packet #30 ea acetaminophen 325 mg tablet 650 mg PO Q4H PRN 11/09/23 02/02/24 bisacodyl 10 mg rectal suppository 10 mg [place] DAILY PRN 11/09/23 02/02/24 (Dulcolax (bisacodyl)) gabapentin 100 mg capsule 200 mg PO HS 11/09/23 02/02/24 insulin degludec 100 unit/mL 15 unit subcut DAILY 11/09/23 02/02/24 subcutaneous solution (Tresiba U-100 Insulin) lidocaine 5 % topical patch 1 patch topical DAILY PRN #15 ea 02/02/24 (Lidoderm) Previous Rx's ?Medication ?Instructions ?Recorded nitroglycerin 0.4 mg sublingual 0.4 mg sublingual Q5 MIN PRN X3 07/01/15 tablet (Nitrostat) PRN Chest Pain #15 tabs isosorbide mononitrate 30 mg 30 mg PO HS #30 tabs 09/07/23 tablet,extended release 24 hr alprazolam 0.5 mg tablet 0.5 mg PO DAILY PRN PRN anxiety 11/05/23 #30 tabs aluminum-mag hydroxide-simethicone 15 ml PO Q2H PRN PRN #3,000 mL 11/05/23 400 mg-400 mg-40 mg/5 mL oral susp donepezil 5 mg tablet 5 mg PO HS #30 tabs 11/05/23 gabapentin 100 mg capsule 100 mg PO DAILY@1400 #30 caps 11/05/23 insulin aspart U-100 100 unit/mL 1 sliding scale dose subcut AC & 11/05/23 (3 mL) subcutaneous pen (Novolog HS #15 mL FlexPen U-100 Insulin aspart) polyethylene glycol 3350 17 gram 17 g PO DAILY PRN PRN Constipation 11/05/23 oral powder packet #30 ea lidocaine 5 % topical patch 1 patch topical DAILY PRN #15 ea 02/02/24 (Lidoderm) Allergies Allergy/AdvReac Type Severity Reaction Status Date / Time ezetimibe (From Vytorin) Allergy Unknown Other (See Verified 02/02/24 14:25 Comment) hydrocodone Allergy Unknown Other (See Verified 02/02/24 14:25 Comment) pravastatin Allergy Unknown Other (See Verified 02/02/24 14:25 Comment) simvastatin (From Vytorin) Allergy Unknown Other (See Verified 02/02/24 14:25 Comment) ibuprofen AdvReac Severe severe Verified 02/02/24 14:25 vomiting semaglutide (From Ozempic) AdvReac Severe Other (See Verified 02/02/24 14:25 Comment) General Stated Complaint: Chest/Rib CHRIS: 3 Exam Narrative Exam Narrative: Alert oriented interactive Normal voice tolerating secretions Lungs clear bilaterally however slightly diminished at left base no wheeze rales or rhonchi Normal heart sounds no murmur rubs or gallop Abdomen soft nontender nondistended No peripheral edema Moving all extremities without deficit Course Vital Signs Vital signs: Vital Signs Temperature 37.1 C 02/02/24 11:54 Pulse 76 02/02/24 11:54 Respiratory Rate 16 02/02/24 11:54 Blood Pressure 107/62 02/02/24 11:54 Pulse Oximetry 93 02/02/24 11:54 Temperature 37.1 C 02/02/24 11:54 Pulse 78 02/02/24 14:39 Respiratory Rate 18 02/02/24 14:39 Respiratory Effort Normal 02/02/24 14:25 Respiratory Depth Normal 02/02/24 14:25 Respiratory Pattern Normal 02/02/24 14:25 Blood Pressure 142/48 H 02/02/24 14:39 Blood Pressure Mean 80 02/02/24 14:15 Blood Pressure Position Sitting 02/02/24 14:15 Pulse Oximetry 97 02/02/24 14:39 Oxygen Delivery Method Room Air 02/02/24 14:39 Oxygen Flow Rate 0 02/02/24 14:39 Pain Level 10 02/02/24 12:50 Lab/Test Results Lab/Test Results: Laboratory Tests Range/Units 02/02/24 14:37 WBC (4.4-10.8) 10^3/uL 9.16 RBC (3.93-5.22) 10^6/uL 4.05 Hgb (11.2-15.7) g/dL 9.6 L Hct (36.0-46.0) % 33.0 L MCV (80-95) fL 82 MCH (27.0-33.0) pg 23.7 L MCHC (32.0-36.0) % 29.1 L RDW (11.7-14.6) % 20.6 H Plt Count (130-400) 10^3/uL 274 MPV (8.0-11.0) fL 9.5 Immature Gran % % 0.7 Neutrophils % % 71.2 Lymphocytes % % 15.6 Monocytes % % 10.6 Eosinophils % % 1.4 Basophils % % 0.5 Nucleated RBC % (0.0-0.3) % 0.0 Absolute Neutrophils (1.2-6.7) 10^3/uL 6.52 Absolute Lymphocytes (1.2-3.4) 10^3/uL 1.43 Absolute Monocytes (0.1-0.8) 10^3/uL 0.97 H Absolute Eosinophils (0.0-0.7) 10^3/uL 0.13 Absolute Basophils (0.0-0.2) 10^3/uL 0.05 RBC Morphology See Below Anisocytosis 1+ PT (9.1-11.1) sec 12.3 H INR (0.9-1.1) 1.2 H APTT (23.6-32.8) sec 28.0 Sodium (136-145) mmol/L 138 Potassium (3.5-5.1) mmol/L 4.6 Chloride (98-107) mmol/L 101 Carbon Dioxide (21.0-32.0) mmol/L 28.2 Anion Gap (3-11) mmol/L 8.8 BUN (7-18) mg/dL 29 H Creatinine (0.55-1.02) mg/dL 1.3 H Est GFR (CKD-EPI 2020) (mL/min/1.73m2) 45.07 Glucose (74-106) mg/dL 210 H Calcium (8.5-10.1) mg/dL 9.7 Total Bilirubin (0.2-1.0) mg/dL 0.67 AST (15-37) U/L 25 ALT (14-59) U/L 24 Alkaline Phosphatase (46-116) U/L 226 H Troponin I (<or=51) ng/L 19 NT-Pro-B Natriuret Pep (<300) pg/mL 1421 H Total Protein (6.4-8.2) g/dL 8.6 H Albumin (3.4-5.0) g/dL 3.1 L Medical Decision Making 69-year-old female history of coronary disease diabetes presents with left-sided chest discomfort worse with coughing deep breath and movement, has not benefited from [id number] medication at home, mild shortness of breath, hemodynamically stable normotensive afebrile nontoxic nontachypneic nonhypoxic lungs slightly diminished left base consider pneumonia versus pleural effusion versus PE versus ACS versus less likely aortic pathology versus pneumothorax versus viral illness versus pleurisy versus costochondritis. Labs imaging close reassessment 18: 53 patient feeling better after medication. No respiratory distress no signs of PE or ACS. Consider pleurisy likely Quality:SDOH Health Related Social Needs: No Data to Display PFSH All Active Problems (Updated 02/02/24 @ 18:55 by Gui Alejandro MD) Pleurisy (Acute) Mild shortness of breath (Acute) ACP (advance care planning) (Acute) Restless leg syndrome (Acute) Deficit in activities of daily living (ADL) (Acute) Sleep apnea (Chronic) Hypoglycemia associated with diabetes (Acute) TIA (transient ischemic attack) (Acute) Progressive cognitive dysfunction (Chronic) Constipation (Acute) Injury of left little finger (Acute 07/13/22) Fracture of third metatarsal bone of left foot (Acute 07/13/22) Bipolar 1 disorder (Chronic) Chest pain, rule out acute myocardial infarction (Acute) Hx of CABG (Chronic) CHF (congestive heart failure) (Chronic) Diabetes mellitus type 2, controlled (Chronic) Coronary atherosclerosis (Acute) Accelerating angina (Acute) Hyperlipidemia (Acute) Sinusitis (Acute) Mitral insufficiency (Acute) Medical History (Updated 02/02/24 @ 18:55 by Gui Alejandro MD) Palliative care encounter Fatigue Tobacco abuse Hypertension GERD (gastroesophageal reflux disease) Fibromyalgia Diabetes Surgical History Status post carpal tunnel release of both wrists S/P mitral valve clip implantation Hx of CABG 2015 Social History Smoking/Tobacco Use Status: Current-Occasional Tobacco Type: cigarettes Quit status: considering quitting Smoking risk assessment performed?: Yes Alcohol Intake: former Drug use: Never Substance use type: does not use Housing: house What type of physical activity do you participate in: other Details: cardiac rehab Do you feel safe at home: Yes Do you feel safe in your relationship?: Yes History History Para 4 Hx # Term Pregnancies Multiple births Hx # Pregnancies Ectopic pregnancies AB induced Hx Number of Living Children AB spontaneous
[2024-02-02 15:59] LABS: Bilirubin Negative (Negative); Blood Negative (Negative); Clarity Clear (Clear); Glucose Negative (Negative); Ketones Negative (Negative); Leukocyte Esterase Negative (Negative); Nitrite Negative (Negative); Specific Gravity 1.015 (1.005-1.025); Urobilinogen 0.2 mg/dL (Up to 0.2)
[2024-02-02 16:11] VITALS: BP 124/61; PULSE 67; RESP 14; O2SAT 97
[2024-02-02 16:54] LABS: Troponin I 18 ng/L (<or=51)
[2024-02-02] MEDS: Normal Saline - Diluent 50 ML VIAL IJ (17:01)
[2024-02-02] MEDS: Omnipaque 350 MG/ML 100 ML BTL IJ (17:02)
[2024-02-02] MEDS: Lidocaine 5% Patch 1 PATCH TP (17:36)
[2024-02-02] MEDS: Albuterol 2.5 MG/3 ML INH SOLN VIAL UPD (17:36)
[2024-02-02] MEDS: fentaNYL 100 MCG/2 ML VIAL 50 MCG IVP (17:36)
[2024-02-02] MEDS: Dexamethasone 10 MG/ML VIAL IVP (17:36)
[2024-02-02 19:17] VITALS: BP 120/65; PULSE 68; RESP 16; TEMP 36.8; O2SAT 98
== END 2024-02-02 19:17 | disposition home or self-care (01) ==
PROVIDERS: Emergency Provider Emergency Medicine; PCP Family Medicine
DX: R06.02 Shortness of breath (principal); R09.1 Pleurisy; R05.1 Acute cough; E11.9 Type 2 diabetes mellitus without complications; Z86.79 Personal history of other diseases of the circulatory system
CPT/HCPCS: 36415; 36416; 71275; 80053; 82962; 93005; 94640; 96361; 96374; 96375; 96376; 99285; 81003; 83880; 84484; 85025; 85610; 85730; 93010; 99284; J1100; J2405; J3010; J3490; J7613

== ENCOUNTER 2024-02-15 01:42 | Outpatient (CLI) | payer MEDICARE, SELFPAY ==
--- NOTE | 2024-02-15 | DI.RAD_ITS ---
Exam(s) XR RIBS LT W PA LAT CHEST CLINICAL HISTORY LT DISTAL RIB PAIN, R07.81,? FX. COMPARISON: CT CT CHEST PE CTA from 02/02/2024 TECHNIQUE:: PA and lateral views of the chest and four views of the left ribs were performed. FINDINGS: LUNGS: Clear. No pleural abnormality seen. HEART: Enlarged. Status post CABG. MEDIASTINUM: Normal. BONES: No displaced rib fracture is seen. No compression fractures are seen in the thoracic spine. Degenerative disc changes. No bony destructive lesion is seen. OTHER FINDINGS: None. IMPRESSION: 1. Unremarkable radiographic appearance of the left ribs. 2. No acute pulmonary findings.
== END 2024-02-15 02:02 ==
LOC: DI 01:43
PROVIDERS: PCP Family Medicine; Visit Provider Family Medicine
DX: R07.81 Pleurodynia (principal)
CPT/HCPCS: 71046; 71100

== ENCOUNTER 2024-03-09 01:42 | Outpatient (CLI) | payer MEDICARE, SELFPAY ==
--- NOTE | 2024-03-09 | DI.DEXA_ITS ---
Exam(s) XR DEXA BONE DENSITY W/WO REKHA EXAM: XR DEXA BONE DENSITY W/WO REKHA CLINICAL HISTORY: Asymptomatic menopausal state, Z78.0 TECHNIQUE: COMPARISON: Comparison examination is 08/06/2005. FINDINGS: Lateral Spine Image: Unremarkable. No compression deformities identified. Left hip: Total T-Score: -1.7. This compares to 0.2 on the prior examination. Total Z-Score: -0.4. T- and Z-scores: Findings are consistent with osteopenia. There is osteoporosis in the femoral neck with a T-score of -3.7. Lumbar Spine: Total T-Score: -1.5. This compares to -0.6 on the prior examination. Total Z-Score: 0.4 T- and Z-scores: Findings are consistent with osteopenia. Left forearm: Total T-score:-3.2. Total Z-score:-1.5. T and Z-score is: Findings are consistent with osteoporosis. IMPRESSION: Findings of osteoporosis in the left forearm and the left femoral neck.
--- NOTE | 2024-03-09 | DI.MAMMO_ITS ---
Exam(s) MAMMO SCREENING EXAM: MAMMO SCREENING CLINICAL HISTORY: SCREENING, Z12.39. TECHNIQUE: Bilateral full field digital CC and MLO mammographic images were obtained with 3D tomosyn thesis and utilizing computer aided detection (CAD). COMPARISON: Prior mammograms were reviewed. FINDINGS: There has been no significant change in the appearance and distribution of the fibroglandular tissue. There are no new spiculated masses nor malignant appearing microcalcification groups. There is no significant architectural distortion nor skin thickening-retraction. IMPRESSION: No radiographic evidence of malignancy. BI-RADS Category 1 - Negative Breast Density - Category B - Scattered areas of fibroglandular density Breast density Category C or D implies that the patient has dense breast tissue. Dense breast tissue can make it harder to find cancer on a mammogram. Dense breast tissue is also associated with an incr eased risk of breast cancer. This information about the result of the mammogram report was provided to the patient to raise their awareness. Use this report when you speak with the patient about their risks for breast cancer, which includes their family history. At that time, you may recommend additional screening tests (Ultrasoun d or MRI) as these tests may add significant information. A negative radiographic report should not delay biopsy if a dominant or clinically suspicious mass is present. Up to ten percent of cancers are not identified on mammography. A negative report may reinforce clinical impression. Adenosis and dense breasts may obscure an underlying neoplasm. False positive reports average 6 to 10%. Patient will receive a letter notifying them of these results.
== END 2024-03-09 02:02 ==
LOC: DI 01:42
PROVIDERS: PCP Family Medicine; Visit Provider Family Medicine
DX: Z78.0 Asymptomatic menopausal state (principal); Z12.31 Encounter for screening mammogram for malignant neoplasm of breast; Z13.820 Encounter for screening for osteoporosis; M81.0 Age-related osteoporosis without current pathological fracture
CPT/HCPCS: 77063; 77067; 77080

== ENCOUNTER → 2024-03-30 13:04 | Outpatient (BNVA) | payer MEDICARE, SELFPAY | PROVIDERS: PCP Family Medicine; Referring Provider Family Medicine; Visit Provider Physician Assistant Surgical | DX: R06.00 Dyspnea, unspecified (principal); G47.33 Obstructive sleep apnea (adult) (pediatric); I50.82 Biventricular heart failure; I27.20 Pulmonary hypertension, unspecified; F17.200 Nicotine dependence, unspecified, uncomplicated | CPT/HCPCS: 99215 ==

== ENCOUNTER 2024-05-02 15:49 | Outpatient (REF) | payer MEDICARE, SELFPAY ==
[2024-05-02 21:31] LABS: TSH (W/Ref FT4) 3.11 uIU/mL (0.36-3.74)
== END 2024-05-02 15:50 | disposition home or self-care (01) ==
LOC: NCHCN 15:49
PROVIDERS: PCP Family Medicine; Visit Provider Family Medicine
DX: R94.6 Abnormal results of thyroid function studies (principal)
CPT/HCPCS: 84443

== ENCOUNTER 2024-06-08 21:27 | Emergency (ER) | payer MEDICARE, SELFPAY ==
[2024-06-08] VITALS (16 sets, daily range): BP systolic 106–131; BP diastolic 36–90; PULSE 76–82; RESP 11–26; TEMP 35; O2SAT 91–95
--- NOTE | 2024-06-08 21:30 | RT.EKG_ITS ---
APPROVED REPORT Exam: Resting ECG Reason for Exam: Insulin OD Patient Location: E HR:77 bpm ECG Measurements Heart Rate 77 AXIS NE 184 P 0 QRSd 108 QRS 65 QT 420 T 74 QTc 476 Conclusion Sinus rhythm, rate 77 No interval abnormalities No STEMI
[2024-06-08 21:45] LABS: Abs Immature Grans 0.05 10^3/uL (0.0-0.06); Absolute Basophil Count 0.04 10^3/uL (0.0-0.2); Absolute Eosinophil Count 0.28 10^3/uL (0.0-0.7); Absolute Lymphocyte Count 2.05 10^3/uL (1.2-3.4); Absolute Monocyte Count 0.64 10^3/uL (0.1-0.8); Absolute Neutrophil Count 5.54 10^3/uL (1.2-6.7); Basophils % 0.5 %; Eosinophils % 3.3 %; HCT 42.7 % (36.0-46.0); HGB 13.9 g/dL (11.2-15.7); Immature Grans % 0.6 %; Lymphocytes % 23.8 %; MCH 29.1 pg (27.0-33.0); MCHC 32.6 % (32.0-36.0); MCV 89 fL (80-95); MPV 9.4 fL (8.0-11.0); Monocytes % 7.4 %; Neutrophils % 64.4 %; Platelet Count 280 10^3/uL (130-400); RBC 4.78 10^6/uL (3.93-5.22); RDW 16.9 % (11.7-14.6); RDW-SD 54.8 fL
[2024-06-08] MEDS: DEXTROSE 10%-WATER 500 ML 100 ML IV (21:53)
[2024-06-08 22:05] LABS: ALT 22 U/L (14-59); AST 23 U/L (15-37); Albumin 3.6 g/dL (3.4-5.0); Alkaline Phosphatase 169 U/L (46-116); Anion Gap 11.9 mmol/L (3-11); BUN 15 mg/dL (7-18); Bilirubin, Total 0.41 mg/dL (0.2-1.0); CO2 29.1 mmol/L (21.0-32.0); CREATININE 0.9 mg/dL (0.55-1.02); Calcium 9.9 mg/dL (8.5-10.1); Chloride 105 mmol/L (98-107); Estimated GFR 70.07 (mL/min/1.73m2); Glucose 102 mg/dL (74-106); Magnesium 1.9 mg/dL (1.8-2.4); Potassium 3.1 mmol/L (3.5-5.1); Sodium 146 mmol/L (136-145); Total Protein 9.2 g/dL (6.4-8.2); Troponin I 25 ng/L (<or=51)
--- NOTE | 2024-06-08 22:05 | W.ED.GENAD ---
Discharge Plan Discharge Details Chief Complaint: Diabetes Clinical Impression: Accidental overdose of insulin, Hypokalemia Primary Care Provider: Luna Reyna ED Provider: Radha Dodson Home Meds and New Rx's Prescriptions: No Action magnesium L-lactate 84 mg tablet extended release 84 mg PO DAILY acetaminophen 325 mg tablet 650 mg PO Q4H PRN bisacodyl [Dulcolax (bisacodyl)] 10 mg suppository 10 mg [place] DAILY PRN gabapentin 100 mg capsule 200 mg PO HS insulin degludec [Tresiba U-100 Insulin] 100 unit/mL solution 15 unit subcut DAILY Rx Instructions: IN AM pantoprazole 40 mg tablet,delayed release (DR/EC) 40 mg PO HS aspirin [Adult Low Dose Aspirin] 81 MG tablet,delayed release (DR/EC) 81 mg PO HS Qty: 30 Baqsimi 3 mg/actuation spray,non-aerosol 3 mg intranasal ONCE Rx Instructions: as a single dose cyclobenzaprine 10 mg tablet 10 mg PO HS ferrous sulfate 325 mg (65 mg iron) tablet 325 mg PO DAILY (DME) FreeStyle [place] 2 [place] Misc See Rx Instructions .Route Rx Instructions: As directed glucagon HCl 1 mg/mL recon soln 1 mg subcut DIRECTED PRN lamotrigine 100 mg tablet 100 mg PO BID pantoprazole 20 mg tablet,delayed release (DR/EC) 20 mg PO DAILY Stiolto Respimat 2.5-2.5 mcg/actuation mist 2 puff inhalation DAILY lamotrigine [Lamictal] 100 MG tablet 100 mg PO BID Patient Comments: Total 125 mg po bid nitroglycerin [Nitrostat] 0.4 MG tablet, sublingual 0.4 mg Sublingual Q5 MIN PRN X3 PRN (Reason: Chest Pain) Qty: 15 0RF cholecalciferol (vitamin D3) 25 mcg (1,000 unit) Capsule 1,000 unit PO DAILY lamotrigine 25 mg tablet 25 mg PO BID Patient Comments: Total 125 mg po bid spironolactone 25 mg tablet 12.5 mg PO HS Patient Comments: Take 1/2 tablet by mouth once a day clopidogrel 75 mg tablet 75 mg PO HS Patient Comments: TAKE 1 TABLET EVERY DAY isosorbide mononitrate 30 mg Tablet Extended Release 24 Hr 30 mg PO HS Qty: 30 0RF gabapentin 100 mg Capsule 100 mg PO DAILY@1400 Qty: 30 0RF alum-mag hydroxide-simeth 400-400-40 mg/5 mL Suspension 15 ml PO Q2H PRN PRNQty: 3000 0RF polyethylene glycol 3350 17 gram Powder In Packet 17 g PO DAILY PRN PRN (Reason: Constipation) Qty: 30 0RF insulin aspart U-100 [Novolog FlexPen U-100 Insulin] 100 unit/mL (3 mL) insulin pen 1 sliding scale dose subcut AC & HS Qty: 15 0RF Rx Instructions: Gluc < 140 0 units 141 to 180 2 units 181 to 220 4 units 221 to 250 6 units 251 to 280 8 units 281 to 320 10 units 321 to 450 12 units 451 give 14 units and seek medical care alprazolam 0.5 mg Tablet 0.5 mg PO DAILY PRN PRN (Reason: anxiety) Qty: 30 0RF rosuvastatin [Crestor] 40 MG tablet 40 mg PO QPM multivitamin [Daily Multi-Vitamin] 1 EACH tablet 1 tab PO DAILY vitamin B complex [B-Complex] 1 EACH tablet 1 tab PO DAILY naloxone [Narcan] 4 mg/actuation [place],Non-Aerosol 4 mg intranasal PRN PRN metoprolol succinate 50 mg tablet extended release 24 hr 75 mg PO HS Patient Comments: TAKE 1 AND 1/2 TABLETS BY MOUTH DAILY torsemide 20 mg tablet See Rx Instructions .ROUTE .COMPLEX Rx Instructions: Take 2 tabs po qam and 1 tab in midafternoon; celecoxib 100 mg capsule 100 mg PO BID Patient Comments: TAKE ONE CAPSULE BY MOUTH EVERY 12 HOURS NEEDED lidocaine [Lidoderm] 5 % adhesive patch,medicated 1 patch topical DAILY PRNQty: 15 0RF Rx Instructions: leave on most painful area for up to 12 hrs HPI General Mode of arrival: ambulatory. Date/Time Provider Initiated Documentation: 06/08/24 21:37. Limitations to Documentation: no limitations. Information obtained by: patient and old records reviewed. HPI Narrative: HPI: This is a 69-year-old female patient with a past medical history significant for insulin-dependent type 2 diabetes, TIA, sleep apnea, bipolar, CHF, CAD status post CABG, who is presenting for evaluation of an an unintentional insulin overdose. The patient reports that she accidentally gave herself 38 units of NovoLog instead of her long-acting insulin. This occurred at 8:20 PM, patient states that she initially felt quite well but now is starting to feel like her sugars going low. She reports that she did not do this intentionally and specifically denies suicidal or homicidal ideations. Prior to this event the patient was in her normal state of health, with no acute complaints of illness or injury. Right now she states that she just feels tired but is otherwise without pain or medical complaint. Exam: Gen: Awake and alert, in no apparent distress HEENT: Non-icteric sclera, PERRL Neck: Supple Lungs: No apparent respiratory distress, normal respiratory effort. CV: Appears well perfused, strong distal pulses, symmetrical bilaterally Abdomen: Non-distended MSK: Moves 4 extremities without apparent limitation in ROM Skin: Visualized skin without rashes, cyanosis. Neuro: Normal Gait, no obvious focal deficits or facial asymmetry. Speaks in full, clear sentences. Awake, alert, and oriented x 4 Psych: Appropriate for situation. MDM: This is a 69-year-old female patient presenting for evaluation of an inadvertent insulin overdose. Differential includes but is not limited to accidental medication misuse, I certainly considered intentional insulin overdose with the patient is denying this. Considered metabolic and electrolyte derangements, hypoglycemia, kidney injury initial blood glucose check 120, followed by a rapid decline and notification by her continuous glucose monitor of decreased to 70. The patient was provided with sugary beverages which she is able to tolerate, her mentation maintained and she was able to control her airway. We will obtain an EKG, laboratory studies to include CBC, CMP, magnesium, troponin, and will start the patient on a D10 drip given her decreasing blood glucose. ED Course: I did consult with poison control, who recommends at least 5 hours of time to medical clearance as long as the patient is asymptomatic at that time. I reviewed the patient's laboratory studies, which show no leukocytosis, anemia or thrombocytopenia. Chemistry panel is notable for mild hypokalemia to 3.1, which was repleted with oral and intravenous potassium. No evidence of kidney or liver dysfunction, troponin negative. On several rechecks the patient's blood glucose has largely stabilized on the D10 drip at 100 mL/h. I signed out care of this patient to the oncoming provider prior to completion of her observation, which will need to be at least 5 hours or until she is asymptomatic. All further care per the oncoming team. Radha Dodson MD Related Data Home Medications ?Medication ?Instructions ?Recorded ?Confirmed lamotrigine 100 mg tablet 100 mg PO BID 04/08/14 05/23/24 (Lamictal) nitroglycerin 0.4 mg sublingual 0.4 mg sublingual Q5 MIN PRN X3 07/01/15 05/23/24 tablet (Nitrostat) PRN Chest Pain #15 tabs aspirin 81 mg tablet,delayed 81 mg PO HS #30 tab-caps 05/29/16 05/23/24 release (Adult Low Dose Aspirin) rosuvastatin 40 mg tablet (Crestor) 40 mg PO QPM 01/03/18 05/23/24 multivitamin (Daily Multi-Vitamin 1 tab PO DAILY 01/04/18 05/23/24 tablet) vitamin B complex (B-Complex 1 tab PO DAILY 01/04/18 05/23/24 tablet) naloxone 4 mg/actuation nasal 4 mg intranasal PRN PRN 11/21/18 05/23/24 spray (Narcan) magnesium L-lactate 84 mg 84 mg PO DAILY 12/23/18 05/23/24 tablet,extended release pantoprazole 40 mg tablet,delayed 40 mg PO HS 04/07/19 05/23/24 release cholecalciferol (vitamin D3) 25 1,000 unit PO DAILY 09/23/20 05/23/24 mcg (1,000 unit) capsule metoprolol succinate 50 mg 75 mg PO HS 12/27/20 05/23/24 tablet,extended release 24 hr torsemide 20 mg tablet See Rx Instructions .Route .COMPLEX 08/23/22 05/23/24 clopidogrel 75 mg tablet 75 mg PO HS 09/06/23 05/23/24 lamotrigine 25 mg tablet 25 mg PO BID 09/06/23 05/23/24 spironolactone 25 mg tablet 12.5 mg PO HS 09/06/23 05/23/24 isosorbide mononitrate 30 mg 30 mg PO HS #30 tabs 09/07/23 05/23/24 tablet,extended release 24 hr celecoxib 100 mg capsule 100 mg PO BID 10/21/23 05/23/24 alprazolam 0.5 mg tablet 0.5 mg PO DAILY PRN PRN anxiety 11/05/23 05/23/24 #30 tabs aluminum-mag hydroxide-simethicone 15 ml PO Q2H PRN PRN #3,000 mL 11/05/23 05/23/24 400 mg-400 mg-40 mg/5 mL oral susp gabapentin 100 mg capsule 100 mg PO DAILY@1400 #30 caps 11/05/23 05/23/24 insulin aspart U-100 100 unit/mL 1 sliding scale dose subcut AC & 11/05/23 05/23/24 (3 mL) subcutaneous pen (Novolog HS #15 mL FlexPen U-100 Insulin aspart) polyethylene glycol 3350 17 gram 17 g PO DAILY PRN PRN Constipation 11/05/23 05/23/24 oral powder packet #30 ea acetaminophen 325 mg tablet 650 mg PO Q4H PRN 11/09/23 05/23/24 bisacodyl 10 mg rectal suppository 10 mg [place] DAILY PRN 11/09/23 05/23/24 (Dulcolax (bisacodyl)) gabapentin 100 mg capsule 200 mg PO HS 11/09/23 05/23/24 insulin degludec 100 unit/mL 15 unit subcut DAILY 11/09/23 05/23/24 subcutaneous solution (Tresiba U-100 Insulin) lidocaine 5 % topical patch 1 patch topical DAILY PRN #15 ea 02/02/24 05/23/24 (Lidoderm) cyclobenzaprine 10 mg tablet 10 mg PO HS 02/21/24 05/23/24 ferrous sulfate 325 mg (65 mg 325 mg PO DAILY 02/21/24 05/23/24 iron) tablet flash glucose scanning reader 02/21/24 05/23/24 ([employer] Manuel 2 [place]) glucagon 3 mg/actuation nasal 3 mg intranasal ONCE 02/21/24 05/23/24 spray (Baqsimi) glucagon HCl 1 mg/mL solution for 1 mg subcut DIRECTED PRN 02/21/24 05/23/24 injection lamotrigine 100 mg tablet 100 mg PO BID 02/21/24 05/23/24 pantoprazole 20 mg tablet,delayed 20 mg PO DAILY 02/21/24 05/23/24 release tiotropium 2.5 mcg-olodaterol 2.5 2 puff inhalation DAILY 02/21/24 05/23/24 mcg/actuation mist for inhalation (Stiolto Respimat) Previous Rx's ?Medication ?Instructions ?Recorded nitroglycerin 0.4 mg sublingual 0.4 mg sublingual Q5 MIN PRN X3 07/01/15 tablet (Nitrostat) PRN Chest Pain #15 tabs isosorbide mononitrate 30 mg 30 mg PO HS #30 tabs 09/07/23 tablet,extended release 24 hr alprazolam 0.5 mg tablet 0.5 mg PO DAILY PRN PRN anxiety 11/05/23 #30 tabs aluminum-mag hydroxide-simethicone 15 ml PO Q2H PRN PRN #3,000 mL 11/05/23 400 mg-400 mg-40 mg/5 mL oral susp gabapentin 100 mg capsule 100 mg PO DAILY@1400 #30 caps 11/05/23 insulin aspart U-100 100 unit/mL 1 sliding scale dose subcut AC & 11/05/23 (3 mL) subcutaneous pen (Novolog HS #15 mL FlexPen U-100 Insulin aspart) polyethylene glycol 3350 17 gram 17 g PO DAILY PRN PRN Constipation 11/05/23 oral powder packet #30 ea lidocaine 5 % topical patch 1 patch topical DAILY PRN #15 ea 02/02/24 (Lidoderm) Allergies Allergy/AdvReac Type Severity Reaction Status Date / Time ezetimibe (From Vytorin) Allergy Unknown Other (See Verified 05/23/24 14:40 Comment) hydrocodone Allergy Unknown Other (See Verified 05/23/24 14:40 Comment) pravastatin Allergy Unknown Other (See Verified 05/23/24 14:40 Comment) simvastatin (From Vytorin) Allergy Unknown Other (See Verified 05/23/24 14:40 Comment) empagliflozin (From AdvReac Severe Nausea Verified 05/23/24 14:40 Jardiance) ibuprofen AdvReac Severe severe Verified 05/23/24 14:40 vomiting semaglutide (From Ozempic) AdvReac Severe Other (See Verified 05/23/24 14:40 Comment) buspirone AdvReac Mild wired Verified 05/23/24 14:40 ,dizzy latose intolerant AdvReac Unknown gas, Uncoded 05/23/24 14:40 stomach upset General Stated Complaint: Diabetes CHRIS: 2 Course Vital Signs Vital signs: Vital Signs Temperature 35 C L 06/08/24 21:34 Pulse 79 06/08/24 21:34 Respiratory Rate 12 06/08/24 21:34 Blood Pressure 131/71 06/08/24 21:34 Pulse Oximetry 95 06/08/24 21:34 Temperature 35 C L 06/08/24 21:34 Temperature Source Temporal Artery Scan 06/08/24 21:34 Pulse 79 06/08/24 21:34 Respiratory Rate 12 06/08/24 21:34 Blood Pressure 131/71 06/08/24 21:34 Blood Pressure Position Supine 06/08/24 21:34 Pulse Oximetry 95 06/08/24 21:34 Oxygen Delivery Method Room Air 06/08/24 21:34 Oxygen Flow Rate 0 06/08/24 21:34 Pain Level 0 06/08/24 21:34 Lab/Test Results Lab/Test Results: Laboratory Tests Range/Units 06/08/24 21:37 WBC (4.4-10.8) 10^3/uL 8.60 RBC (3.93-5.22) 10^6/uL 4.78 Hgb (11.2-15.7) g/dL 13.9 Hct (36.0-46.0) % 42.7 MCV (80-95) fL 89 MCH (27.0-33.0) pg 29.1 MCHC (32.0-36.0) % 32.6 RDW (11.7-14.6) % 16.9 H Plt Count (130-400) 10^3/uL 280 MPV (8.0-11.0) fL 9.4 Immature Gran % % 0.6 Neutrophils % % 64.4 Lymphocytes % % 23.8 Monocytes % % 7.4 Eosinophils % % 3.3 Basophils % % 0.5 Nucleated RBC % (0.0-0.3) % 0.0 Absolute Neutrophils (1.2-6.7) 10^3/uL 5.54 Absolute Lymphocytes (1.2-3.4) 10^3/uL 2.05 Absolute Monocytes (0.1-0.8) 10^3/uL 0.64 Absolute Eosinophils (0.0-0.7) 10^3/uL 0.28 Absolute Basophils (0.0-0.2) 10^3/uL 0.04 Medical Decision Making Quality:SDOH Health Related Social Needs: No Data to Display PFSH All Active Problems (Updated 06/08/24 @ 23:17 by Radha Dodson MD) Hypokalemia (Acute) Accidental overdose of insulin (Acute) Sensation of fullness in right ear (Acute) Vertigo (Acute) Melena (Acute) High liver alkaline phosphatase level (Acute) Idiopathic osteoarthritis (Acute) Tricuspid valve incompetence, non-rheumatic (Acute) Hypoalbuminemia (Acute) Irritable bowel syndrome (Chronic) Osteoporosis (Chronic) Thyroid function test abnormal (Acute) Chest wall pain (Acute) Change in voice (Acute) Cirrhosis of liver (Acute) Pulmonary hypertension (Acute) Elevated alkaline phosphatase level (Acute) Tarsal tunnel syndrome of right side (Acute) Neuropathy due to type 2 diabetes mellitus (Acute) Rib pain (Acute) Dyspnea (Acute) Tremor (Acute) Memory impairment (Acute) Obstructive sleep apnea syndrome in adult (Acute) Nicotine dependence (Acute) Anxiety disorder (Acute) Bipolar disorder (Acute) Iron deficiency anemia (Acute) Type 2 diabetes mellitus without complications (Acute) Onychomycosis due to dermatophyte (Acute) ACP (advance care planning) (Acute) Restless leg syndrome (Acute) Deficit in activities of daily living (ADL) (Acute) Sleep apnea (Chronic) Hypoglycemia associated with diabetes (Acute) TIA (transient ischemic attack) (Acute) Progressive cognitive dysfunction (Chronic) Constipation (Acute) Injury of left little finger (Acute 07/13/22) Fracture of third metatarsal bone of left foot (Acute 07/13/22) Bipolar 1 disorder (Chronic) Chest pain, rule out acute myocardial infarction (Acute) Hx of CABG (Chronic) CHF (congestive heart failure) (Chronic) Diabetes mellitus type 2, controlled (Chronic) Coronary atherosclerosis (Acute) Accelerating angina (Acute) Hyperlipidemia (Acute) Sinusitis (Acute) Mitral insufficiency (Acute) Medical History (Updated 06/08/24 @ 23:17 by Radha Dodson MD) Palliative care encounter Fatigue Tobacco abuse Hypertension GERD (gastroesophageal reflux disease) Fibromyalgia Diabetes Surgical History (Updated 02/21/24 @ 10:19 by Marbella Cuellar) Status post carpal tunnel release of both wrists 04/28/06 S/P mitral valve clip implantation Hx of CABG 2015 Family History (Updated 02/21/24 @ 10:14 by Marbella Cuellar) Mother Parkinson disease Alzheimer disease Father Intestine thrombosis Brother CAD (coronary artery disease) Lipoprotein deficiency Sister Breast cancer Other Diabetes Hyperlipidemia Hypertension Social History (Updated 02/21/24 @ 10:05 by Marbella Cuellar) Smoking/Tobacco Use Status: Current-Occasional Tobacco Type: cigarettes Years smoked: 50 Quit status: considering quitting Smoking risk assessment performed?: Yes Alcohol Intake: former Drug use: Never Substance use type: does not use Housing: house What type of physical activity do you participate in: other Details: cardiac rehab Do you feel safe at home: Yes Do you feel safe in your relationship?: Yes History History Para 4 Hx # Term Pregnancies Multiple births Hx # Pregnancies Ectopic pregnancies AB induced Hx Number of Living Children AB spontaneous
[2024-06-08] MEDS: Potassium Chloride 20 MEQ TABCR 40 MEQ PO (22:27)
[2024-06-08] MEDS: POTASSIUM CHLORIDE 10 MEQ/100 ML BAG 100 MEQ IV_INF (22:28)
--- NOTE | 2024-06-08 23:18 | ED.PROG_ITS ---
Date of service: 06/08/24 Time of Service: 23:18 Medical Decision Making This patient was signed out to me. Please see previous notes for H&P and initial eval. In brief, 69yo F presenting after inadvertent insulin overdose. Took 34U of her short acting insulin instead of her long-acting. Did not take the long acting. On dextrose mIVF, checking blood sugar via dexcom q30 minutes, has received potassium replacement. Plan to observe in the ED until 0130 (~5 hours after time of insulin admin), weaning fluids as able. Weaned off dextrose without difficulty, blood glucose >100 throughout weaning process. On reassessment pt is well appearing with reassuring vital signs, feels well, would like to go home. Discharged home; discharge instructions and return precautions were reviewed with patient who verbalized understanding. All questions were answered and she is in full agreement with the plan. Quality:SDOH Health Related Social Needs: No Data to Display Discharge Plan Disposition Patient Disposition: Home Condition: Good Discharge Details Clinical Impression: Accidental overdose of insulin, Hypokalemia Primary Care Provider: Luna Reyna ED Provider: Lilian Zapien Home Meds and New Rx's Prescriptions: Continued magnesium L-lactate 84 mg tablet extended release 84 mg PO DAILY acetaminophen 325 mg tablet 650 mg PO Q4H PRN bisacodyl [Dulcolax (bisacodyl)] 10 mg suppository [address] DAILY PRN gabapentin 100 mg capsule 200 mg PO HS insulin degludec [Tresiba U-100 Insulin] 100 unit/mL solution 15 unit subcut DAILY Rx Instructions: IN AM pantoprazole 40 mg tablet,delayed release (DR/EC) 40 mg PO HS aspirin [Adult Low Dose Aspirin] 81 MG tablet,delayed release (DR/EC) 81 mg PO HS Qty: 30 Baqsimi 3 mg/actuation spray,non-aerosol 3 mg intranasal ONCE Rx Instructions: as a single dose cyclobenzaprine 10 mg tablet 10 mg PO HS ferrous sulfate 325 mg (65 mg iron) tablet 325 mg PO DAILY (DME) FreeStyle Manuel 2 [place] Misc See Rx Instructions .Route Rx Instructions: As directed glucagon HCl 1 mg/mL recon soln 1 mg subcut DIRECTED PRN lamotrigine 100 mg tablet 100 mg PO BID pantoprazole 20 mg tablet,delayed release (DR/EC) 20 mg PO DAILY Stiolto Respimat 2.5-2.5 mcg/actuation mist 2 puff inhalation DAILY lamotrigine [Lamictal] 100 MG tablet 100 mg PO BID Patient Comments: Total 125 mg po bid nitroglycerin [Nitrostat] 0.4 MG tablet, sublingual 0.4 mg Sublingual Q5 MIN PRN X3 PRN (Reason: Chest Pain) Qty: 15 0RF cholecalciferol (vitamin D3) 25 mcg (1,000 unit) Capsule 1,000 unit PO DAILY lamotrigine 25 mg tablet 25 mg PO BID Patient Comments: Total 125 mg po bid spironolactone 25 mg tablet 12.5 mg PO HS Patient Comments: Take 1/2 tablet by mouth once a day clopidogrel 75 mg tablet 75 mg PO HS Patient Comments: TAKE 1 TABLET EVERY DAY isosorbide mononitrate 30 mg Tablet Extended Release 24 Hr 30 mg PO HS Qty: 30 0RF gabapentin 100 mg Capsule 100 mg PO DAILY@1400 Qty: 30 0RF alum-mag hydroxide-simeth 400-400-40 mg/5 mL Suspension 15 ml PO Q2H PRN PRNQty: 3000 0RF polyethylene glycol 3350 17 gram Powder In Packet 17 g PO DAILY PRN PRN (Reason: Constipation) Qty: 30 0RF insulin aspart U-100 [Novolog FlexPen U-100 Insulin] 100 unit/mL (3 mL) insulin pen 1 sliding scale dose subcut AC & HS Qty: 15 0RF Rx Instructions: Gluc < 140 0 units 141 to 180 2 units 181 to 220 4 units 221 to 250 6 units 251 to 280 8 units 281 to 320 10 units 321 to 450 12 units 451 give 14 units and seek medical care alprazolam 0.5 mg Tablet 0.5 mg PO DAILY PRN PRN (Reason: anxiety) Qty: 30 0RF rosuvastatin [Crestor] 40 MG tablet 40 mg PO QPM multivitamin [Daily Multi-Vitamin] 1 EACH tablet 1 tab PO DAILY vitamin B complex [B-Complex] 1 EACH tablet 1 tab PO DAILY naloxone [Narcan] 4 mg/actuation [place],Non-Aerosol 4 mg intranasal PRN PRN metoprolol succinate 50 mg tablet extended release 24 hr 75 mg PO HS Patient Comments: TAKE 1 AND 1/2 TABLETS BY MOUTH DAILY torsemide 20 mg tablet See Rx Instructions .ROUTE .COMPLEX Rx Instructions: Take 2 tabs po qam and 1 tab in midafternoon; celecoxib 100 mg capsule 100 mg PO BID Patient Comments: TAKE ONE CAPSULE BY MOUTH EVERY 12 HOURS NEEDED lidocaine [Lidoderm] 5 % adhesive patch,medicated 1 patch topical DAILY PRNQty: 15 0RF Rx Instructions: leave on most painful area for up to 12 hrs Discharge Instructions Instructions: Using insulin Additional Instructions: Keep a close eye on your blood sugar at home. Take your insulin as prescribed, starting this morning. Make sure to check which insulin you are administering. Return to the emergency department for new or worsening symptoms including if your blood sugar gets low again. Referrals: Luna Reyna [Primary Care Provider] -
[2024-06-09] VITALS (17 sets, daily range): BP systolic 111–126; BP diastolic 42–60; PULSE 75–80; RESP 12–19; O2SAT 91–96
[2024-06-09] MEDS: POTASSIUM CHLORIDE 10 MEQ/100 ML BAG 100 MEQ IV_INF
== END 2024-06-09 02:29 | disposition home or self-care (01) ==
PROVIDERS: Emergency Medicine; Emergency Provider Student in an Organized Health Care Education/Training Program; PCP Family Medicine
DX: T38.3X1A Poisoning by insulin and oral hypoglycemic [antidiabetic] drugs, accidental (unintentional), initial encounter (principal); E87.6 Hypokalemia; I11.0 Hypertensive heart disease with heart failure; I50.9 Heart failure, unspecified; E11.9 Type 2 diabetes mellitus without complications; I25.10 Atherosclerotic heart disease of native coronary artery without angina pectoris; F17.210 Nicotine dependence, cigarettes, uncomplicated; Z86.73 Personal history of transient ischemic attack (TIA), and cerebral infarction without residual deficits; Z79.4 Long term (current) use of insulin; Z79.82 Long term (current) use of aspirin; Z79.02 Long term (current) use of antithrombotics/antiplatelets
CPT/HCPCS: 00123; 36415; 80053; 82962; 93005; 96365; 96366; 99284; 83735; 84484; 85025; 93010; J3480

== ENCOUNTER 2024-07-06 13:27 | Outpatient (REF) | payer MEDICARE, SELFPAY ==
[2024-07-06 13:57] LABS: Abs Immature Grans 0.05 10^3/uL (0.0-0.06); Absolute Basophil Count 0.05 10^3/uL (0.0-0.2); Absolute Eosinophil Count 0.15 10^3/uL (0.0-0.7); Absolute Lymphocyte Count 1.48 10^3/uL (1.2-3.4); Absolute Monocyte Count 0.83 10^3/uL (0.1-0.8); Absolute Neutrophil Count 4.97 10^3/uL (1.2-6.7); Basophils % 0.7 %; HCT 40.3 % (36.0-46.0); HGB 13.2 g/dL (11.2-15.7); Immature Grans % 0.7 %; Lymphocytes % 19.7 %; MCH 29.5 pg (27.0-33.0); MCHC 32.8 % (32.0-36.0); MCV 90 fL (80-95); MPV 10.2 fL (8.0-11.0); Neutrophils % 65.9 %; Platelet Count 269 10^3/uL (130-400); RBC 4.48 10^6/uL (3.93-5.22); RDW 15.7 % (11.7-14.6); RDW-SD 51.7 fL; WBC 7.53 10^3/uL (4.4-10.8)
[2024-07-06 15:58] LABS: Iron 91 ug/dL (50-170); Total Iron Binding Capacity 338 ug/dL (250-450); Transferrin Sat 27 % (15-50)
== END 2024-07-06 13:28 | disposition home or self-care (01) ==
LOC: NCHCN 13:27
PROVIDERS: PCP Family Medicine; Visit Provider Family Medicine
DX: D50.9 Iron deficiency anemia, unspecified (principal)
CPT/HCPCS: 83540; 83550; 85025

== ENCOUNTER 2024-08-01 16:23 | Outpatient (REF) | payer MEDICARE, SELFPAY ==
[2024-08-01 15:04] LABS: Bilirubin Negative (Negative); Blood Negative (Negative); Clarity Clear (Clear); Glucose Negative (Negative); Ketones Negative (Negative); Leukocyte Esterase Negative (Negative); Nitrite Negative (Negative); Urobilinogen 0.2 mg/dL (Up to 0.2)
== END 2024-08-01 16:24 | disposition home or self-care (01) ==
LOC: NCHCN 16:23
PROVIDERS: PCP Family Medicine; Visit Provider Nurse Practitioner Family
DX: L29.3 Anogenital pruritus, unspecified (principal)
CPT/HCPCS: 81003; 87480; 87510; 87660

== ENCOUNTER → 2024-09-13 13:59 | Outpatient (BNVA) | payer MEDICARE, SELFPAY | PROVIDERS: PCP Family Medicine; Referring Provider Family Medicine; Visit Provider Surgery | DX: K82.9 Disease of gallbladder, unspecified (principal) | CPT/HCPCS: 99214 ==

== ENCOUNTER 2025-01-12 21:21 | Outpatient (REF) | payer MEDICARE, SELFPAY ==
[2025-01-12 21:56] LABS: Abs Immature Grans 0.03 10^3/uL (0.0-0.06); HCT 40.1 % (36.0-46.0); HGB 13.0 g/dL (11.2-15.7); Immature Grans % 0.4 %; MCH 30.0 pg (27.0-33.0); MCHC 32.4 % (32.0-36.0); MCV 92 fL (80-95); MPV 10.7 fL (8.0-11.0); Platelet Count 253 10^3/uL (130-400); RBC 4.34 10^6/uL (3.93-5.22); RDW 13.3 % (11.7-14.6); RDW-SD 45.4 fL; WBC 8.11 10^3/uL (4.4-10.8)
[2025-01-12 22:08] LABS: Hemoglobin A1C 6.6 % (<5.7)
[2025-01-12 22:11] LABS: Anion Gap 10.5 mmol/L (3-11); BUN 18 mg/dL (7-18); CO2 30.5 mmol/L (21.0-32.0); Calcium 9.7 mg/dL (8.5-10.1); Calculated LDL 66 mg/dL (<100); Chloride 100 mmol/L (98-107); Cholesterol 150 mg/dL (<200); Estimated GFR 55.07 (mL/min/1.73m2); Glucose 130 mg/dL (74-106); HDL Cholesterol 67 mg/dL (>or=50); Potassium 3.8 mmol/L (3.5-5.1); Sodium 141 mmol/L (136-145); Triglyceride 87 mg/dL (<150)
[2025-01-12 22:31] LABS: NT-proBNP 433 pg/mL (<300)
== END 2025-01-12 21:22 | disposition home or self-care (01) ==
LOC: NCHCN 21:21
PROVIDERS: PCP Family Medicine; Visit Provider Family Medicine
DX: I50.22 Chronic systolic (congestive) heart failure (principal); E11.9 Type 2 diabetes mellitus without complications; E78.5 Hyperlipidemia, unspecified; R06.02 Shortness of breath
CPT/HCPCS: 80048; 80061; 83036; 83880; 85025

== ENCOUNTER 2025-01-17 14:51 | Outpatient (CLI) | payer MEDICARE, SELFPAY ==
--- NOTE | 2025-01-17 14:10 | DI.RAD_ITS ---
Exam(s) XR CHEST 2V PA LATERAL EXAM: XR CHEST 2V PA LATERAL CLINICAL HISTORY: SOB R06.02 TECHNIQUE: 2D digital imaging was performed. Two views. COMPARISON: CR XR PORTABLE CHEST AP from 09/06/2023 CR XR RIBS LT W PA LAT CHEST from 02/15/2024 FINDINGS: HEART: Markedly enlarged. Status post CABG. Aorta: Not dilated. Calcification at arch. PULMONARY VASCULATURE: Prominent, unchanged. MEDIASTINUM: Unremarkable. LUNGS: No focal infiltrate. Increased interstitial markings which appear chronic. PLEURAL SPACE: No pleural effusion or pneumothorax. BONE:Unremarkable for age. SOFT TISSUES: Unremarkable. IMPRESSION: Cardiomegaly. No acute abnormality. DATA REPOSITORY: RADIATION DOSE DELIVERED:
== END 2025-01-17 15:11 ==
LOC: DI 14:51
PROVIDERS: PCP Family Medicine; Visit Provider Family Medicine
DX: R06.02 Shortness of breath (principal)
CPT/HCPCS: 71046

== ENCOUNTER 2025-03-12 19:23 | Outpatient (REF) | payer MEDICARE, SELFPAY ==
[2025-03-12 17:53] LABS: COMMENT (LAB VIEW ONLY) 42.86 mg/dL; Microalb ug/mg Crea 14.7 ug/mg Cr
== END 2025-03-12 19:24 | disposition home or self-care (01) ==
LOC: NCHCN 19:23
PROVIDERS: PCP Family Medicine; Visit Provider Family Medicine
DX: E11.9 Type 2 diabetes mellitus without complications (principal)
CPT/HCPCS: 82043; 82570